=== PATIENT | female | born 1960 | race Caucasian/White ===

== ENCOUNTER 2016-08-16 23:43 | Emergency (ER) | payer OTHER ==
[~2016-08-16] VITALS: Ht 167.6 cm; Wt 52.9 kg
[~2016-08-16 23:43] MED LIST: AMIL5TAB15 PO; CHOL1CAP67 PO; COEN1CAP17 PO; DMD20 PO; EPLE25TA3 PO; FRS/40 PO; FURO40TA3 PO; LACT1CAP6 PO; MAGN1CAP2 PO; METO25TA3 PO; METO5TAB5 PO; MULTTAB58 PO; OMEG-7 PO; POTA20TA16 PO; WARF4TAB PO
[2016-08-16 23:48] VITALS: TEMP 37; Ht 167.6 cm; Wt 52.9 kg
--- NOTE | 2016-08-17 01:09 | EMERGENCY ROOM VISIT NOTE ---
History Report prepared by Roxane: Jose Rutledge Under the Supervision of: Dr. Hortensia Suero D.O. First contact with patient: 23:57 Chief Complaint: OTHER COMPLAINT Stated Complaint: BLOATED DUE TO HEART MEDS NOT BEING METABOLIZED History of Present Illness The patient is a 56 year old female who presents to the Emergency Room with complaints of a worsening bloated gut and bilateral lower extremity edema that began several days prior to arrival. The patient states that her symptoms are the result of a "leaky gut" which she has experienced intermittently for several years. The patient is followed closely at the [facility] since her open heart surgery in 2004. The patient had a mitral valve replacement and tricuspid annulus. She has a cardiac echo every 6 months, and is in constant atrial fibrillation. The patient spoke with the [facility] 5 days prior to this visit but was not able to make it to see them secondary to weather conditions. She is currently experiencing increased bowel movements. The patient has recently had her dosages of Torsemide and potassium increased due to her leaky gut. She is currently taking 40 mg of Torsemide twice per day and 30 meq of Potassium twice per day. The patient was very insulting while acquiring this HPI, she says that all of the doctors here at the hospital are incompetent. 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 A total of 10 systems reviewed and were otherwise negative. Past Medical & Surgical Medical Problems: (1) Pacemaker (2) Rheumatic heart disease Surgical Problems: (1) H/O tricuspid valve repair (2) Mitral valve replaced Family History Cancer Social History Smoking Status: Current Every Day Smoker Alcohol Use: none Marital Status: Housing Status: lives alone Occupation Status: employed Current/Historical Medications Scheduled Amiloride Hcl (Amiloride Hcl), 10 MG PO HOLD Amoxicillin & Pot Clavulanate (Amoxicillin/Clavulanate P), 1 TAB PO BID Cholecalciferol (Vitamin D-3), 1,000 UNITS PO DAILY Coenzyme Q10 (Ubidecarenone) (Co Q 10), 1 CAP PO BID Eplerenone (Eplerenone), 25 MG PO DAILY Eplerenone (Eplerenone), 25 MG PO DIRECTED Furosemide (Lasix), 80 MG PO QAM Furosemide (Lasix), 40 MG PO QPM Lactobacillus (Probiotic), 1 CAPSULE PO DAILY Magnesium Oxide (Mg Supplement (Magnesium), 400 MG PO DAILY Metoprolol Succ (Toprol Xl) (Toprol-Xl), 12.5 MG PO BID Multiple Vitamin (Multivitamin), 1 TABLET PO DAILY [place]-3 Fatty Acids-Cholecalci ([place] Essentials/Vitamin), 1 CAP PO DAILY Potassium Ext Rel (Klor-Con), 40 MEQ PO QAM Potassium Ext Rel (Klor-Con), 20 MEQ PO QPM Torsemide (Torsemide), 40 MG PO DAILY Warfarin Sodium (Coumadin), 4 MG PO DIRECTED Scheduled PRN Metolazone (Zaroxolyn), 5 MG PO DAILY PRN for EDEMA Allergies Coded Allergies: Adhesives (Verified Allergy, Mild, rash, 08/17/16) Codeine (Verified Allergy, Mild, ., 08/17/16) Lorazepam (Verified Allergy, Mild, ., 08/17/16) Corticosteroids (Verified Allergy, Unknown, HYPOTENSION, 08/17/16) Morphine (Verified Allergy, Unknown, mental status change, 08/17/16) NSAIDs (Verified Allergy, Unknown, HYPOTENSION, 08/17/16) Prednisone (Verified Adverse Reaction, Unknown, LOW BP D/T FLUID SHIFT, 08/17/16) Physical Exam Vital Signs Date Time Temp Pulse Resp B/P Pulse Ox O2 Delivery O2 Flow Rate FiO2 08/17/16 04:19 97 18 126/72 98 08/17/16 03:58 97 18 126/72 98 Room Air 08/17/16 01:55 104 18 113/79 94 Room Air 08/16/16 23:48 37.0 135 20 137/82 97 Room Air Physical Exam HEENT: Head - normocephalic and atraumatic Pupils are equal, round, and reactive to light. Extraocular eye muscles are intact, and sclera are anicteric. Nose - moist nasal mucosa without discharge. Mouth - moist buccal mucosa. Oropharynx is nonerythematous and there is no tonsillar exudate or edema noted. Neck: Supple; NO JVD, nuchal rigidity, cervical lymphadenopathy, or auscultated bruits. Heart: Irregularly irregular rate. There is a 2/6 systolic murmur, there is a click. There is a normal S1 and S2 with no gallops appreciated. Lungs: Clear to auscultation bilaterally with no wheezes, rales, or rhonchi. Abdomen: Soft, completely nontender, nondistended, with good bowel sounds. There are no palpable pulsatile masses or hepatosplenomegaly. There is no guarding, rigidity, or rebound noted. Extremities: There is evidence of peripheral vascular edema with 2+ edema. No evidence of cyanosis or clubbing. There are easily palpable peripheral pulses. Skin: warm and dry with good turgor and no rashes. Medical Decision & Procedures Laboratory Results 08/17/16 02:40 Test 08/17/16 00:21 08/17/16 02:40 Creatine Kinase MB Ratio (0-3.0) Prothrombin Time 22.8 SECONDS (9.0-12.0) Prothromb Time International Ratio 2.1 (0.9-1.1) Activated Partial Thromboplast Time 31.1 SECONDS (21.0-31.0) Partial Thromboplastin Ratio 1.2 Anion Gap 10.0 mmol/L (3-11) Est Creatinine Clear Calc Drug Dose 58.3 ml/min Estimated GFR () 82.3 Estimated GFR (Non- 71.0 BUN/Creatinine Ratio 21.4 (10-20) Calcium Level 9.2 mg/dl (8.5-10.1) Total Bilirubin 1.3 mg/dl (0.2-1) Aspartate Amino Transf (AST/SGOT) 51 U/L (15-37) Alanine Aminotransferase (ALT/SGPT) 41 U/L (12-78) Alkaline Phosphatase 182 U/L (45-117) Total Protein 7.9 gm/dl (6.4-8.2) Albumin 4.0 gm/dl (3.4-5.0) Globulin 3.9 gm/dl (2.5-4.0) Albumin/Globulin Ratio 1.0 (0.9-2) Laboratory results per my review. Medications Administered Medications (Trade) Dose Ordered Sig/Marie Route Start Time Stop Time Status Last Admin Dose Admin Furosemide (Lasix Inj) 80 mg STK-MED ONCE .ROUTE 08/17/16 03:45 08/17/16 03:47 DC 08/17/16 03:52 80 MG Procedure Medications Ordered: Furosemide ED Course 0042: This patient was evaluated and HPI was obtained by the Medical Student prior to my evaluation. 0051: Past medical records reviewed. The patient was evaluated in room B8. A complete history and physical exam was performed. 0055: The patient was very insulting during exam. She states that all of the doctors here are incompetent and do not provide suitable care. She refused IV initiation and Laboratory draw. She refuses any treatment until we speak with a fellow from the [facility]. We contacted the [facility] to speak with the cardiovascular follow. 0144: I spoke with the patient at this time. We are waiting for the on-call fellow at the [facility] to call back. 0224: I spoke with Dr. Pfeiffer, the on-call cardiovascular fellow at the [facility]. He feels it is unreasonable to give the patient any medications before checking a full metabolite panel. He reviewed her charts from the clinic and states that there was no documentation of any phone correspondence since her discharge in July, contrary to what the patient stated. Dr. Pfeiffer states that her medications as prescribed by them are 40 mg of Torsemide and 20 MEQ of Potassium once or twice daily. He recommends that we start an IV and give her a large dose of IV Lasix and have her call the [facility] tomorrow. 0345: Ordered Furosemide 80 mg IV. Medical Decision The patient is a 56 year old patient who presents to the emergency department with fluid overload. Differential diagnoses include; Laboratory results were reviewed and show; INR of 2.1, potassium of 3.5, BUN of 19, creatinine of 0.9, and glucose of 193. The patient has a long complicated history. She was just cared for at the [facility] in July. Upon discharge, her Zaroxolyn was stopped and she was to take Torosemide and potassium. The patient describes recent increase in her fluid overload with leg swelling. Initially, the patient requested that we give her an oral dose of Zaroxolyn, an oral dose of potassium, and an oral dose of turosemide. She then requested that we check her laboratory studies after that. After discussing the case with the fellow equipment clinic, we decided to draw a chemistry panel and treat the patient with IV Lasix. Eventually, the patient was satisfied with this plan. The fellow requested that she follow-up with them in the clinic by phone tomorrow. Consults Time Called: 014 Consulting Physician: Dr. Pfeiffer - On-call cardiovascular fellow at [facility] Returned Call: [phone] I discussed the case with Dr. Pfeiffer at this time, extensive conversation detailed in ED course. Impression Primary Impression: Fluid overload Scribe Attestation The scribe's documentation has been prepared under my direction and personally reviewed by me in its entirety. I confirm that the note above accurately reflects all work, treatment, procedures, and medical decision making performed by me. Departure Information Dispostion Home / Self-Care Referrals No Doctor, Assigned (PCP) Forms HOME CARE DOCUMENTATION FORM, IMPORTANT VISIT INFORMATION, WORK / SCHOOL INSTRUCTIONS Patient Instructions A Signature Page, My [facility] Additional Instructions Please follow up today with Cardiovascular fellow at [facility]. Increase your potassium dose to 40 meq twice a day for next 2 days
[2016-08-17] MEDS ORDERED: EPLE25TA3 PO (01:15)
[2016-08-17] MEDS ORDERED: AMOX1TAB42 PO (01:18)
[2016-08-17 03:06] LABS: INR 2.1 (0.9-1.1); PARTIAL THROMBOPLASTIN RATIO 1.2; PROTHROMBIN TIME (PATIENT) 22.8 SECONDS (9.0-12.0)
[2016-08-17 03:18] LABS: BUN/CREATININE RATIO 21.4 (10-20); CALCIUM 9.2 mg/dl (8.5-10.1); CREATININE 0.91 mg/dl (0.60-1.20); POTASSIUM 3.5 mmol/L (3.5-5.1)
[2016-08-17] MEDS ORDERED: FUROSEMIDE INJ 80 MG in SYRINGE 0 ML IV STA (03:33)
[2016-08-17] MEDS ORDERED: FUROSEMIDE 40 MG/4 ML VIAL ONE (03:45)
[2016-08-17 04:19] VITALS: BP 126/72; PULSE 97; O2SAT 98
== END 2016-08-17 04:20 | disposition home or self-care (01) ==
LOC: C.EDB 23:45
DX: E87.70 Fluid overload, unspecified (principal); I09.9 Rheumatic heart disease, unspecified; Z95.2 Presence of prosthetic heart valve; Z95.0 Presence of cardiac pacemaker; I48.91 Unspecified atrial fibrillation; F17.210 Nicotine dependence, cigarettes, uncomplicated; Z80.9 Family history of malignant neoplasm, unspecified; Z79.01 Long term (current) use of anticoagulants; Z79.899 Other long term (current) drug therapy

== ENCOUNTER → 2016-08-25 | Outpatient (CLI) | payer OTHER ==
[~2016-08-25] MED LIST changes: +AMOX1TAB42 PO
== END | disposition home or self-care (01) ==
LOC: C.LABPBG 13:13
PROVIDERS: ATTEND Internal Medicine Cardiovascular Disease
DX: Z09 Encounter for follow-up examination after completed treatment for conditions other than malignant neoplasm (principal); Z86.39 Personal history of other endocrine, nutritional and metabolic disease

== ENCOUNTER → 2016-08-28 | Outpatient (CLI) | payer OTHER ==
[2016-08-28 12:48] LABS: BLOOD UREA NITROGEN 24 mg/dl (7-18); BUN/CREATININE RATIO 28.6 (10-20); CALCIUM 10.5 mg/dl (8.5-10.1); CARBON DIOXIDE 31 mmol/L (21-32); CHLORIDE 91 mmol/L (98-107); CREATININE 0.84 mg/dl (0.60-1.20); GLUCOSE 177 mg/dl (70-99); POTASSIUM 3.1 mmol/L (3.5-5.1); SODIUM 132 mmol/L (136-145)
== END | disposition home or self-care (01) ==
LOC: C.LABPBG 09:57
PROVIDERS: ATTEND Internal Medicine Cardiovascular Disease
DX: Z95.2 Presence of prosthetic heart valve (principal); I48.0 Paroxysmal atrial fibrillation; I50.32 Chronic diastolic (congestive) heart failure

== ENCOUNTER → 2016-09-01 | Outpatient (CLI) | payer OTHER | END | disposition home or self-care (01) | LOC: C.LABPBG 09:33 | PROVIDERS: ATTEND Family Medicine | DX: E55.9 Vitamin D deficiency, unspecified (principal); R19.7 Diarrhea, unspecified; K86.89 Other specified diseases of pancreas; R05 Cough ==

== ENCOUNTER 2016-09-17 21:28 | Emergency (ER) | payer OTHER ==
[~2016-09-17] VITALS: Ht 167.6 cm; Wt 72.2 kg
[2016-09-17 21:30] VITALS: BP 139/84; PULSE 109; TEMP 36.5; O2SAT 98; Ht 167.6 cm; Wt 72.2 kg
--- NOTE | 2016-09-17 22:04 | EMERGENCY ROOM VISIT NOTE ---
History First contact with patient: 21:40 Chief Complaint: DEHYDRATION Stated Complaint: DEHYDRATION History of Present Illness The patient is a 56 year old female who presents to the Emergency Room with complaints of possible dehydration versus fluid overload. Much of the history is limited as the patient is talking on the telephone to "her doctor", and would not get off the phone to have a full conversation with me. Review of Systems Unable to perform Past Medical/Surgical History Medical Problems: (1) Pacemaker (2) Rheumatic heart disease Surgical Problems: (1) H/O tricuspid valve repair (2) Mitral valve replaced Family History Cancer Social History Smoking Status: Never Smoker Alcohol Use: none Marital Status: Housing Status: lives alone Occupation Status: employed Current/Historical Medications Scheduled Amiloride Hcl (Amiloride Hcl), 10 MG PO HOLD Amoxicillin & Pot Clavulanate (Amoxicillin/Clavulanate P), 1 TAB PO BID Cholecalciferol (Vitamin D-3), 1,000 UNITS PO DAILY Coenzyme Q10 (Ubidecarenone) (Co Q 10), 1 CAP PO BID Eplerenone (Eplerenone), 25 MG PO DAILY Eplerenone (Eplerenone), 25 MG PO DIRECTED Furosemide (Lasix), 80 MG PO QAM Furosemide (Lasix), 40 MG PO QPM Lactobacillus (Probiotic), 1 CAPSULE PO DAILY Magnesium Oxide (Mg Supplement (Magnesium), 400 MG PO DAILY Metoprolol Succ (Toprol Xl) (Toprol-Xl), 12.5 MG PO BID Multiple Vitamin (Multivitamin), 1 TABLET PO DAILY [place]-3 Fatty Acids-Cholecalci ([place] Essentials/Vitamin), 1 CAP PO DAILY Potassium Ext Rel (Klor-Con), 40 MEQ PO QAM Potassium Ext Rel (Klor-Con), 20 MEQ PO QPM Torsemide (Torsemide), 40 MG PO DAILY Warfarin Sodium (Coumadin), 4 MG PO DIRECTED Scheduled PRN Metolazone (Zaroxolyn), 5 MG PO DAILY PRN for EDEMA Allergies Coded Allergies: Adhesives (Verified Allergy, Mild, rash, 09/17/16) Codeine (Verified Allergy, Mild, ., 09/17/16) Lorazepam (Verified Allergy, Mild, ., 09/17/16) Corticosteroids (Verified Allergy, Unknown, HYPOTENSION, 09/17/16) Morphine (Verified Allergy, Unknown, mental status change, 09/17/16) NSAIDs (Verified Allergy, Unknown, HYPOTENSION, 09/17/16) Prednisone (Verified Adverse Reaction, Unknown, LOW BP D/T FLUID SHIFT, 09/17/16) Physical Exam Vital Signs Date Time Temp Pulse Resp B/P Pulse Ox O2 Delivery O2 Flow Rate FiO2 09/17/16 21:30 36.5 109 20 139/84 98 Room Air Physical Exam VITALS: Vitals are noted on the nurse's note and reviewed by myself. Vital signs stable. GENERAL: Well-developed, well-nourished, white female, who is pacing in the room and speaking on the telephone. Medical Decision & Procedures ED Course Physical exam and history were performed. Nursing notes and EMR were reviewed. Patient appears to have vague complaints of dehydration versus fluid overload to the triage nurse. Based on the EMR she has been seen at the [facility] for a cardiac history. The best history unable to obtain as from the charge nurse, and evidently the patient took potassium tablets today to improve hypokalemia. The EMR shows that she has a history of hypokalemia. Upon my arrival to the patient's room, the patient was talking on her cell phone. She had refused changing into her gown, and was reportedly belligerent to nursing. She indicated that she was speaking to "her doctor", but did not make an attempt to complete the call. I sat in the room while the patient was on the phone for nearly 5 minutes. The patient actually left the emergency department room to continue her conversation in an area that I was not able to hear it. This left me alone in her room, without her, and without further evaluation being performed. As the patient had left the room to continue her conversation on the telephone, I also left the room. I asked nursing to inform me when the patient was ready for further evaluation. After several minutes I was informed by nursing the patient had left AMA. This was reported to the charge nurse. Evidently the patient made comments about this location not being "patient centered" on her way out of the department. I am unsure what she is referring to as I was present within 9 minutes (door to provider) of her arrival to the emergency department. I waited in her room while she continued conversation on the telephone, and she eloped without further evaluation. The chart was completed utilizing [employer] Speech Voice Recognition Software. Grammatical errors, random word insertions, pronoun errors, and incomplete sentences are an occasional consequence of this system due to software limitations, ambient noise, and hardware issues. Any formal questions or concerns about the content, text, or information contained within the body of this dictation should be directly addressed to the provider for clarification. . Medical Decision No differential considered as the patient left AMA. Impression Primary Impression: Left against medical advice Departure Information Dispostion Against Medical Advice Forms HOME CARE DOCUMENTATION FORM, IMPORTANT VISIT INFORMATION Patient Instructions [facility]
== END 2016-09-17 21:55 | disposition left against medical advice (07) ==
LOC: C.EDB 21:29 → C.EDA 21:55
DX: E86.0 Dehydration (principal); Z95.2 Presence of prosthetic heart valve; Z95.0 Presence of cardiac pacemaker; I09.9 Rheumatic heart disease, unspecified; Z79.01 Long term (current) use of anticoagulants; Z79.899 Other long term (current) drug therapy

== ENCOUNTER → 2016-10-08 | Outpatient (CLI) | payer OTHER | END | disposition home or self-care (01) | LOC: C.LABPBG 11:29 | PROVIDERS: ATTEND Nurse Practitioner Family | DX: Z00.00 Encounter for general adult medical examination without abnormal findings (principal) ==

== ENCOUNTER → 2016-10-27 | Outpatient (CLI) | payer OTHER ==
[2016-10-27 17:37] LABS: HEMATOCRIT 32.9 % (37-47); MEAN CELL VOLUME 101.9 fL (80-100); MEAN CORPUSCULAR HEMOGLOBIN 33.4 pg (25-34); MEAN CORPUSCULAR HGB CONC 32.8 g/dl (32-36); MEAN PLATELET VOLUME 9.9 fL (7.4-10.4); PLATELET COUNT 256 K/uL (130-400); RED BLOOD COUNT 3.23 M/uL (4.2-5.4); WHITE BLOOD COUNT 9.06 K/uL (4.8-10.8)
== END | disposition home or self-care (01) ==
LOC: C.LABPBG 15:31
PROVIDERS: ATTEND Family Medicine
DX: J15.9 Unspecified bacterial pneumonia (principal); I48.0 Paroxysmal atrial fibrillation; I50.32 Chronic diastolic (congestive) heart failure; Z95.2 Presence of prosthetic heart valve; Z79.01 Long term (current) use of anticoagulants; Z51.81 Encounter for therapeutic drug level monitoring

== ENCOUNTER → 2016-10-30 | Outpatient (CLI) | payer OTHER ==
[2016-10-30 13:08] LABS: THYROID STIMULATING HORMONE 2.54 uIu/ml (0.300-4.500)
[2016-10-30 13:36] LABS: ESTIMATED AVERAGE GLUCOSE 151 mg/dl; HA1C FLAG Normal (Normal)
--- NOTE | 2016-11-04 10:44 | CODING QUERY MEDICAL NECESSITY ---
SUPPORTING DIAGNOSIS NEEDED A supporting diagnosis is required for the test/procedure performed on this patient in order for us to be reimbursed by the patient's insurance. Please provide a supporting diagnosis for the following test/procedure listed below next to the test name along with your signature. *If there is no additional diagnosis for this patient that would support the following test/procedure please document that below next to the test/procedure. Test(s)/Procedure(s) that require a supporting diagnosis: DOS 10/30 * Hba1c DIAGNOSIS: Provider Signature: Date: Thank you Leyla Mcghee Health Information Management Once completed, please kindly fax back to [phone] For questions please call [phone]
== END | disposition home or self-care (01) ==
LOC: C.LABPBG 10:45
PROVIDERS: ATTEND Family Medicine
DX: R53.83 Other fatigue (principal); E74.39 Other disorders of intestinal carbohydrate absorption

== ENCOUNTER → 2016-11-19 | Outpatient (CLI) | payer OTHER | END | disposition home or self-care (01) | LOC: C.LABPBG 13:13 | PROVIDERS: ATTEND Internal Medicine Cardiovascular Disease | DX: I48.2 Chronic atrial fibrillation (principal); I50.9 Heart failure, unspecified; I07.0 Rheumatic tricuspid stenosis; Z95.2 Presence of prosthetic heart valve; Z98.890 Other specified postprocedural states ==

== ENCOUNTER → 2016-12-07 | Outpatient (CLI) | payer OTHER ==
[2016-12-07 18:00] LABS: CALCIUM 9.7 mg/dl (8.5-10.1)
== END | disposition home or self-care (01) ==
LOC: C.LABPBG 14:23
PROVIDERS: ATTEND Family Medicine
DX: E83.52 Hypercalcemia (principal); I86.8 Varicose veins of other specified sites; K90.9 Intestinal malabsorption, unspecified; L29.9 Pruritus, unspecified; E87.6 Hypokalemia

== ENCOUNTER → 2016-12-14 | Outpatient (CLI) | payer OTHER ==
[2016-12-15 10:39] LABS: FREE KAPPA 33.2 MG/L (3.3-19.4); FREE KAPPA/LAMBDA RATIO 0.6 (0.26-1.65); FREE LAMBDA 55.3 MG/L (5.7-26.3)
[2016-12-15 15:14] LABS: ALBUMIN 4.6 G/DL (3.8-4.8); GAMMA GLOBULIN 1.4 G/DL (0.8-1.7); TOTAL PROTEIN 8.1 G/DL (6.2-8.3)
== END | disposition home or self-care (01) ==
LOC: C.LABPBG 09:19
PROVIDERS: ATTEND Family Medicine
DX: R77.1 Abnormality of globulin (principal)

== ENCOUNTER → 2017-02-03 | Outpatient (CLI) | payer OTHER ==
[2017-02-03 13:33] LABS: ALT/SGPT 27 U/L (12-78); BLOOD UREA NITROGEN 16 mg/dl (7-18); BUN/CREATININE RATIO 17.1 (10-20); CALCIUM 10.7 mg/dl (8.5-10.1); CARBON DIOXIDE 25 mmol/L (21-32); CHLORIDE 98 mmol/L (98-107); CREATININE 0.95 mg/dl (0.60-1.20); GLUCOSE 142 mg/dl (70-99); POTASSIUM 4.5 mmol/L (3.5-5.1); SODIUM 133 mmol/L (136-145)
[2017-02-03 13:40] LABS: ALKALINE PHOSPHATASE 214 U/L (45-117); AST/SGOT 40 U/L (15-37)
== END | disposition home or self-care (01) ==
LOC: C.LABPBG 10:15
PROVIDERS: ATTEND Family Medicine
DX: R94.5 Abnormal results of liver function studies (principal)

== ENCOUNTER → 2017-02-12 | Outpatient (CLI) | payer OTHER ==
[2017-02-12 16:52] LABS: BASO % 0.8 %; BASO ABS # 0.06 K/uL (0-0.2); COMPLETE YES; EOS % 2.1 %; HEMATOCRIT 36.4 % (37-47); IG% 0.4 %; LYMPH % 10.5 %; MEAN CELL VOLUME 100.8 fL (80-100); MEAN CORPUSCULAR HEMOGLOBIN 33.5 pg (25-34); MEAN CORPUSCULAR HGB CONC 33.2 g/dl (32-36); MEAN PLATELET VOLUME 10.3 fL (7.4-10.4); NEUT % 76.2 %; PLATELET COUNT 195 K/uL (130-400); RED BLOOD COUNT 3.61 M/uL (4.2-5.4); WHITE BLOOD COUNT 7.62 K/uL (4.8-10.8)
[2017-02-12 17:25] LABS: TOTAL IRON BINDING CAPACITY 457 mcg/dl (250-450)
== END | disposition home or self-care (01) ==
LOC: C.LABPBG 11:20
PROVIDERS: ATTEND Nurse Practitioner Family
DX: I50.9 Heart failure, unspecified (principal); I48.2 Chronic atrial fibrillation; L02.32 Furuncle of buttock; J32.9 Chronic sinusitis, unspecified; I07.0 Rheumatic tricuspid stenosis; K90.89 Other intestinal malabsorption; Z95.2 Presence of prosthetic heart valve; R53.83 Other fatigue; E87.6 Hypokalemia; R77.1 Abnormality of globulin; R76.8 Other specified abnormal immunological findings in serum; R74.8 Abnormal levels of other serum enzymes

== ENCOUNTER → 2017-03-22 | Outpatient (CLI) | payer OTHER ==
--- NOTE | 2017-03-22 11:02 | DIAGNOSTIC IMAGING REPORT ---
ABDOMEN LIMITED (US) HISTORY: Abnormal lab values ABNORMAL LEVELS, RAISED ALKALINE PHOSPHATASE. COMPARISON: None. FINDINGS: Pancreas: The pancreas demonstrates a normal echotexture. Liver: Mild fatty infiltration Gallbladder: Several small gallstones. CBD: 3 mm Right kidney: Maximum dimension 11.2 cm. No evidence for hydronephrosis. IMPRESSION: 1. Small gallstones 2. Normal caliber bile ducts. 3. Fatty infiltration of liver. The above report was generated using voice recognition software. It may contain grammatical, syntax or spelling errors. Electronically signed by: Michael Kennedy M.D. 03/22/2017 11:00 AM Dictated Date/Time: 03/22/2017 10:59 AM
== END | disposition home or self-care (01) ==
LOC: C.ULTRBC 10:34
PROVIDERS: ATTEND Internal Medicine Gastroenterology
DX: R74.8 Abnormal levels of other serum enzymes (principal); K76.0 Fatty (change of) liver, not elsewhere classified

== ENCOUNTER 2017-08-28 17:51 | Emergency (ER) | payer OTHER ==
[~2017-08-28] VITALS: Ht 172.7 cm; Wt 68.9 kg
[2017-08-28 18:08] VITALS: BP 128/86; PULSE 104; TEMP 36.8; O2SAT 96; Ht 172.7 cm; Wt 68.9 kg
[2017-08-28] MEDS ORDERED: OXYMETAZOLINE HCL 0.05% NA SPR 15 ML BTL STA (18:21)
[2017-08-28] MEDS ORDERED: TPRSR/50 PO (19:11)
[2017-08-28] MEDS ORDERED: POTA1CAP2 PO (19:11)
[2017-08-28] MEDS ORDERED: TORS100T13 PO (19:11)
--- NOTE | 2017-08-28 19:11 | EMERGENCY ROOM VISIT NOTE ---
History First contact with patient: 18:12 Chief Complaint: NOSE BLEED (MINOR) Stated Complaint: PERSISTANT,FREQUENT BLOODY NOSE, WARFARIN History of Present Illness The patient is a 57 year old female who presents to the Emergency Room via private vehicle with complaints of "persistent, frequent bloody nose, warfarin" . The patient states that she is currently on Coumadin for mechanical heart valve. She states that today around 3 PM she developed a sudden onset of a nosebleed from the right naris. She notes that she receives nosebleeds each ear during the winter months. She follows with ENT. She had to have cautery performed last year. Today the bleeding persisted therefore prompting her visit to an urgent care center here for cauterization. Upon her entrance into the emergency department there is no bleeding. She notes her last INR was 3.3, and she skipped a dose because of this. Review of Systems A complete 6-point Review of Systems was discussed with the patient, with pertinent positives and negatives listed in the History of Present Illness. All remaining Review of Systems questions can be considered negative unless otherwise specified. Past Medical/Surgical History Medical Problems: (1) Pacemaker (2) Rheumatic heart disease Surgical Problems: (1) H/O tricuspid valve repair (2) Mitral valve replaced Family History Cancer Social History Smoking Status: Current Every Day Smoker Alcohol Use: none Marital Status: Housing Status: lives alone Occupation Status: employed Current/Historical Medications Scheduled Coenzyme Q10 (Ubidecarenone) (Co Q 10), 1 CAP PO BID Lactobacillus (Probiotic), 1 CAPSULE PO DAILY Metoprolol Succinate (Metoprolol Succinate ER), 50 MG PO DAILY Multiple Vitamin (Multivitamin), 1 TABLET PO DAILY Pioglitazone Hcl (Pioglitazone Hcl), 15 MG PO DAILY Potassium Chloride (Potassium Chloride Er), 10 MEQ PO 8XDAY Torsemide (Demadex), 100 MG PO DAILY Warfarin Sodium (Coumadin), 4 MG PO DIRECTED Physical Exam Vital Signs Date Time Temp Pulse Resp B/P (MAP) Pulse Ox O2 Delivery O2 Flow Rate FiO2 08/28/17 18:08 36.8 104 20 128/86 96 Room Air Physical Exam VITAL SIGNS - Vital signs and nursing notes were reviewed. Stable. GENERAL -57-year-old female appearing her stated age who is in no acute distress. Communicates well with provider and answers questions appropriately. SKIN - Without rashes. No petechial rashes. HEAD - NC/AT. EYES - PERRL with EOMI bilaterally. Sclera anicteric. No hyphema. EARS - No deformities of external structures noted on gross examination bilaterally. No pain elicited with palpation of the tragus bilaterally. External auditory canals without discharge or otorrhea. Tympanic membranes pearly lucio without retraction or bulging. No fluid or purulent material visualized behind the TM. Handle of malleus, umbo, cone of light, pars tensa/ flaccid all easily visualized. No hemotympanum. NOSE - Midline and without cyanosis. No epistaxis or purulent drainage noted. There is dry blood in the naris and posterior pharynx. MOUTH/OROPHARYNX - Without perioral cyanosis. Medical Decision & Procedures Laboratory Results Test 08/28/17 18:45 Bedside Prothrombin Time INR 2.2 (0.9-1.1) Medications Administered Medications (Trade) Dose Ordered Sig/Marie Route Start Time Stop Time Status Last Admin Dose Admin Oxymetazoline HCl (Afrin 0.05% Nasal [place]) 1 sprays NOW STAT NA 08/28/17 18:21 08/28/17 18:22 DC 08/28/17 18:21 1 SPRAYS Medical Decision Patient was seen and evaluated as above. She presents to us today with subjective reports of nosebleeding. There is no bleeding upon her entrance here in the emergency department. She is well on exam. She is hemodynamically stable. She is not dizzy. INR was checked here and was found to be 2.2. This is appropriate. She was given Afrin spray. She was given a nose clamp. She was offered cautery here but I cautioned her that without knowing the offending vessel it is very difficult to do so. She agreed that she would use the Afrin at home if the bleeding would began and is to return if she cannot get the bleeding to stop. She is also to follow with ENT. She was educated upon conservative management. Medication list reviewed. Blood pressure today was found to be slightly elevated. I believe this is secondary to situation. She was educated upon management, educated upon worrisome symptoms in which to return, had questions answered prior to discharge, and was discharged home in good condition. In evaluation and treatment of this patient the following differential diagnoses were entertained: Epistaxis, anterior, posterior, trauma, among others. Impression Primary Impression: Epistaxis Departure Information Dispostion Home / Self-Care Condition GOOD Referrals Kassidy Robertson (PCP) Manny Sanchez MD Patient Instructions [facility] Additional Instructions You have been treated in the Emergency Department today for your Nose Bleed ( Epistaxis). Do NOT blow your nose for the next few days. This can result in recurrence of your nosebleed. You should consider using a humidifier to help moisten the air and decrease instances of nosebleeds. Afrin if you experience a nosebleed, but only if it bleeds. Other regular mists should be saline. You can use [id number] saline nasal sprays to help moisten the nasal mucosa and decrease instances of nosebleeds. As with any trip to the Emergency Department, you should follow-up with your Primary Care Provider from today's visit.. ENT follow up as we discussed Return to the emergency department if your symptoms persist despite treatment plan outlined above or if the following symptoms occur: uncontrollable nosebleed , dizziness, lightheadedness, pre-syncope, or re-bleed.
[2017-08-28] MEDS ORDERED: PIOG1TAB25 PO (19:12)
== END 2017-08-28 19:14 | disposition home or self-care (01) ==
LOC: C.EDB 17:53 → C.EDD 19:14
DX: R04.0 Epistaxis (principal); Z79.01 Long term (current) use of anticoagulants; Z95.2 Presence of prosthetic heart valve; F17.210 Nicotine dependence, cigarettes, uncomplicated; Z79.899 Other long term (current) drug therapy

== ENCOUNTER 2019-05-07 13:30 | Inpatient (IN) ==
[2019-05-07] MEDS ORDERED: ONDANSETRON INJ 2 MG/ML 2 ML VIAL IV STA (14:04)
[2019-05-07] MEDS ORDERED: SODIUM CHLORIDE 0.9% 1000ML 2,000 ML IV ONE ×2 (14:04→16:05)
[2019-05-07] MEDS ORDERED: ACETAMINOPHEN 500 MG TAB PO STA (14:05)
[2019-05-07 14:24] LABS: Basophils # (auto) 0.03 K/uL (0-0.2); Basophils % (auto) 0.6 %; Hematocrit (blood only) 29.8 % (37-47); Hemoglobin 9.7 g/dL (12.0-16.0); Immature Granulocytes # (auto) 0.01 K/uL (0.00-0.02); Immature Granulocytes % (auto) 0.2 %; Lymphocytes # (auto) 0.52 K/uL (1.2-3.4); Mean Corpuscular Hemoglobin 31.8 pg (25-34); Mean Corpuscular Hgb Conc 32.6 g/dL (32-36); Mean Corpuscular Volume 97.7 fL (80-100); Mean Platelet Volume 9.3 fL (7.4-10.4); Monocytes # (auto) 0.37 K/uL (0.11-0.59); Monocytes % (auto) 7.8 %; Neutrophils % (auto) 80.4 %; Platelet Count 217 K/uL (130-400); RDW Coefficient of Variation 14.8 % (11.5-14.5); RDW Standard Deviation 53.1 fL (36.4-46.3); Red Blood Count 3.05 M/uL (4.2-5.4); White Blood Count 4.73 K/uL (4.8-10.8)
[2019-05-07 14:41] LABS: Albumin Level 4.2 gm/dl (3.4-5.0); Calcium 8.9 mg/dl (8.5-10.1); Creatinine Clr Calc Pharmacy 40.9 ml/min; Est GFR (African American) 43.4; Est GFR (Non-African American) 37.4; Potassium 2.6 mmol/L (3.5-5.1)
[2019-05-07 14:44] LABS: Bilirubin,Total 1.1 mg/dl (0.2-1); Globulin 4.1 gm/dl (2.5-4.0); Total Protein 8.3 gm/dl (6.4-8.2)
[2019-05-07] MEDS ORDERED: MAGNESIUM SULFATE / D5W 1 GM/100 ML BAG IV ONE (15:20)
--- NOTE | 2019-05-07 15:53 | Ultrasound Report ---
ULTRASOUND RIGHT UPPER QUADRANT ABDOMEN CLINICAL HISTORY: Nausea and vomiting. COMPARISON STUDY: Abdominal CT dated 10/03/2018. TECHNIQUE: Real-time, grayscale, and color flow sonography of the right upper quadrant of the abdomen was performed. Images are reviewed in the transverse and longitudinal planes. FINDINGS: Liver: The liver is normal in size and heterogeneous in echotexture. There is no intrahepatic biliary ductal dilatation. The main portal vein is patent. Gallbladder: There are shadowing calcified gallstones which measure up to 1 cm. The gallbladder wall is top normal in thickness measuring up to 3 mm. No pericholecystic fluid is identified. A sonographi c Castrejon's sign is reportedly absent. The common bile duct measures up to 0.5 cm in diameter. Pancreas: Visualized portions of the pancreatic head and body are normal in appearance. The splenic v ein is patent. Right kidney: Survey images of the right kidney demonstrate normal size and echotexture. There is no hydronephrosis. Ascites: None. IMPRESSION: 1. Cholelithiasis without sonographic evidence of acute cholecystitis. If there is strong clinical co ncern for acute cholecystitis a hepatobiliary scan could be considered. 2. There is no intra or extrahepatic biliary ductal dilatation. 3. Heterogeneous hepatic echotexture. Electronically signed by: Felice Galarza M.D. 05/07/2019 3:52 PM
[2019-05-07] MEDS ORDERED: POTASSIUM CHLORIDE PWD 20 MEQ PACK PO STA (16:01)
[2019-05-07] MEDS: POTASSIUM CHLORIDE / WTR 10 MEQ/100 ML PLCT IV SCH ×2 (16:03→22:36)
[2019-05-07] MEDS ORDERED: PIPERACILL/TAZOBAC CONSULT ACTIVE PRN ×2 (16:05→20:10)
[2019-05-07] MEDS ORDERED: PIPERACILLIN/TAZOBACTAM 4.5 GM/120 ML BAG IV ONE (16:05)
[2019-05-07 16:13] LABS: Appearance Urine Clear (Clear); Bilirubin Urine Negative (Negative); Blood Urine Trace (Negative); Color Urine Yellow; Glucose Urine UA 2+ (Negative); Ketones Urine Negative (Negative); Leukocyte Esterase Urine Negative (Negative); Nitrite Urine Negative (Negative); Protein Urine Trace (Negative); Specific Gravity Urine 1.014 (1.000-1.030); Urobilinogen Urine Negative (Negative)
[2019-05-07] MEDS ORDERED: IOVERSOL 100ml IV PRN (16:42)
[2019-05-07 16:48] LABS: Epithelial Cell Urine Auto >30 /lpf (0-5)
[2019-05-07 16:50] LABS: Bacteria Urine Automated 1+ (Negative)
--- NOTE | 2019-05-07 17:27 | CT Scan Report ---
CT SCAN OF THE ABDOMEN AND PELVIS WITH IV CONTRAST CLINICAL HISTORY: Nausea and vomiting. Hypotension. COMPARISON STUDY: Abdominal CT dated 10/03/2018. TECHNIQUE: Following the IV administration of 94 cc of Optiray 320, CT scan of the abdomen and pelvi s is performed from the lung bases to the proximal femora. Images are reviewed in the axial, sagittal , and coronal planes. IV contrast was administered without complication. A dose lowering technique wa s utilized adhering to the principles of ALARA. CT DOSE: 376.10 mGy.cm FINDINGS: Lung bases: The patient is status post midline sternotomy. Pacemaker leads are noted. The heart is ma rkedly enlarged and without pericardial effusion. The coronary arteries are densely calcified. There is a trace right pleural effusion and bibasilar atelectasis. Bilateral breast implants are partially imaged. There is a tiny hiatal hernia. Liver: The contrast-enhanced liver is cirrhotic in morphology and heterogeneous in attenuation. There is enlargement of the left lobe and caudate and nodularity of the surface contour. There is no intra hepatic biliary ductal dilatation. The hepatic veins and portal veins are patent. Gallbladder: Calcified gallstones are noted. The gallbladder wall is thickened and hyperemic. There i s pericholecystic inflammation and trace fluid. The appearance is consistent with acute cholecystitis . Spleen: Normal in size and attenuation. Pancreas: Unremarkable. Adrenal glands: The adrenal glands appear hyperemic. Kidneys: The contrast enhanced kidneys are normal in size and without hydronephrosis. The kidneys enh ance symmetrically. Abdominal vasculature: The abdominal aorta is normal in course and caliber. Bowel: There is mild colonic diverticulosis without CT evidence of acute diverticulitis. Moderate col onic fecal retention is observed. There is no bowel obstruction. The appendix is nonvisualized. Peritoneum: There is trace perihepatic fluid as well as trace free fluid in the pelvis. No intraperit romero free air is identified. There is a large fat-containing umbilical hernia. There is a large fat- containing ventral hernia in the upper abdomen seen on image #85. Lymphadenopathy: None. Pelvic viscera: The bladder, uterus, and adnexa are normal as imaged. Skeletal structures: The skeletal structures are osteopenic. No lytic or blastic lesions are seen. IMPRESSION: 1. Cholelithiasis with findings of acute cholecystitis. Surgical consultation is advised. 2. The liver is cirrhotic in morphology and heterogeneous in attenuation. 3. There is trace abdominopelvic ascites. 4. Marked cardiomegaly and trace right pleural effusion. 5. The adrenal glands appear hyperemic. This is nonspecific and can be seen in the setting of hypoten chantelle/shock. 6. Additional findings as above. Electronically signed by: Felice Galarza M.D. 05/07/2019 5:25 PM
[2019-05-07 18:09] LABS: INR 2.3 (0.9-1.1); Prothrombin Time 21.8 Seconds (9.0-12.0)
--- NOTE | 2019-05-07 18:14 | History & Physical Report ---
Date of Service May 07, 2019 Assessment & Plan (1) Acute cholecystitis: It appears the patient has acute cholecystitis. Symptoms, abnormal LFTs, and imaging support this diagnosis. Surprisingly she has had little to no abdominal pain in the last few days. Plan - I spoke with general surgery who will consult in am. Repeat LFTs in am. Gentle IV fluids in light of cardiac history. Zosyn IV. NPO. Pain meds, if necessary. Will need cardiology to weigh-in on pre-op cardiac optimization. Formal cardiology consult placed. I did discuss her care with Dr Glass by phone. Consider formal anesthesia consultation. Had echo in 09/2018 - defer on repeat for now. Hold warfarin; place on heparin drip. (2) Sepsis: 2nd to acute cholecystitis. Follow blood cultures. Broad-spectrum IV antibiotics. Gentle fluids overnight; supportive care. (3) H/O mitral valve replacement: Initial MVR in 1985 with re-do in [address]. [address] Tavo's valve (by her report); however cardiology report lists [employer] mechanical MVR. Either way she takes coumadin and INR goal is 2.5 to 3.5. Last echo in 09/2018 showed good MVR function and normal hemodynamics. Holding coumadin. Start heparin drip per protocol. (4) Hypokalemia: Severe. Likely combination of high-dose diuretics and poor oral intake. Given 40meq of KCL in ER. I will give another 40meq KCL at time of admission, and then repeat 4-6 hours later after that another 20meq. Add KCL to IV fluids. Repeat bmp am. Mag level noted to be normal. (5) History of permanent cardiac pacemaker placement: Implanted 2018 09 to complete heart block. (6) Atrial fibrillation: Chronic/permanent. Had ablation procedure early . On chronic coumadin. (7) Acute kidney injury: likely 2nd to dehydration & sepsis. gentle hydration & supportive care. repeat BMP am. baseline Cr 1 to 1.1. (8) DM w/o complication type II: Hold metformin. Hold jardiance. Check BSGs ac/hs (or q6h while NPO). Novolog sliding scale for now. Check a1c while here. (9) Cervical lymphadenopathy: she has numerous palpable cervical lymph nodes on physical exam. there was also a palpable node in the right supraclavicular area. she has had fatigue for about 1 month in the absence of sweats, chronic fevers or weight loss. [id number] this is concerning. check a monospot. I spoke with Dr Joseph - he recommends a CT soft tissues of neck and CT chest w/ contrast. Check LDH. When cholecystectomy is performed perhaps an excisional lymph node biopsy can occur. Will formally consult Dr Joseph's team on Wednesday. Can likely obtain CTs on Wednesday. (10) Leukopenia: concerning, especially in light of cervical lymphadenopathy. see above. (11) Anemia: Earlier in 2018 her H/H were normal. See above in cervical lymphadenopathy. Repeat CBC am. (12) Chronic cor pulmonale: as per echo dated 09/2018. gentle IV fluids in face of her right-sided CHF. formal consult with Dr Glass requested. no evidence of decompensation today. (13) Erythrocyte casts present in urine: RBC casts are noted on microscopy today. She has trace blood and trace protein along with elevated Cr of 1.5. Hydrate and repeat BMP am. If elevated creatinine persists, and if RBC casts persist on urine micro, consider formal nephrology consultation to r/o GN. (14) H/O tricuspid valve repair: x 2. now with severe tricuspid stenosis by echo (09/2018). (15) DVT prophylaxis: Patient will be on heparin infusion. Care d/w Dr Glass and Dr Arana. total time 75 minutes History of Present Illness Chief Complaint: nausea Primary Care Provider: MAURO Gonzales 59yo female with history of rheumatic heart disease s/p mitral valve replacement x 2 (initially White-Carlton valve in the 1980s; then re-do with St Tavo's valve in 2004), pacemaker (implanted at [facility] 09/2018), T2DM, chronic coumadin use, and right-sided congestive heart failure who presents with nausea beginning earlier this month. The nausea then continued to persist over the last few weeks. She has had lack of appetite. Denies abdominal pain episodes. Had emesis about 1 week ago but otherwise no emesis. No diarrhea. of this week she stopped eating due to the above symptoms. On Wednesday she saw her PCP and she was told that perhaps her symptoms were from a viral gastroenteritis. Wednesday evening she began to have subjective fevers and chills. On Saturday she slept most of the day and had severe fatigue. This am she felt very weak, had no appetite, fevers/chills persisted, etc and thus she came to the ER for evaluation. Denies night-sweats. Denies weight loss. She has just been "exhausted." Her last echo was in 09/2018 and EF was 55% based on her recollection. Coumadin schedule - 6mg M/W/F, 4mg all other days. Allergies Allergy/AdvReac Type Severity Reaction Status Date / Time adhesive Allergy Mild rash Verified 05/07/19 14:26 codeine Allergy Mild . Verified 05/07/19 14:26 lorazepam Allergy Mild . Verified 05/07/19 14:26 Corticosteroids Allergy Unknown HYPOTENSION Verified 05/07/19 14:26 (Glucocorticoids) morphine Allergy Unknown mental Verified 05/07/19 14:26 status change NSAIDS (Non-Steroidal Allergy Unknown HYPOTENSION Verified 05/07/19 14:26 Anti-Inflamma azithromycin Allergy Unknown Unverified 05/07/19 14:26 [From Zithromax Z-Anton] zolpidem [From Ambien] Allergy Unknown Unverified 05/07/19 14:26 prednisone AdvReac Unknown LOW BP D/T Verified 05/07/19 14:26 FLUID SHIFT Anti-Depressents Allergy Unknown Uncoded 05/07/19 14:26 Home Medications Home Medications Medication Instructions Recorded Confirmed Type empagliflozin [Jardiance] 10 mg PO QAM 05/07/19 05/07/19 History metformin 500 mg PO UNKNOWN 05/07/19 05/07/19 History potassium chloride 60 meq PO BID 05/07/19 05/07/19 History torsemide 150 mg PO DAILY 05/07/19 05/07/19 History warfarin 4 mg PO DIRECTED 05/07/19 05/07/19 History warfarin 6 mg PO DIRECTED 05/07/19 05/07/19 History Past Med/Surg History Family History Mother , 60s Gastric cancer Father , age 65 Lung cancer Social History Preferred Language: Austrian Communication Ability: Effective Telephone Advice Nurse Required: No Beliefs That Will Affect Care: None marital status: Single marital status details: 1 son Current Living Situation: Alone Current Living Situation Comment: lives in [place] current occupational status: employed 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 Other Information That Helps Us Care for You: No Feels Safe at Home: Yes Safety Concerns: Feels Safe At This Time Smoking Status: Former smoker Tobacco Type: cigarettes ; packs per day: 0.5 ; Do You Dip or Chew Tobacco: No ; Smoking End Date: 09/2018; smoked since age 21 ; Hx Alcohol Use: Yes Alcohol type: beer and wine Alcohol Intake Frequency: Holidays/Special Occasions Hx Substance Use: No Review of Systems Constitutional: + fever, + chills, + fatigue and + anorexia; no weight loss Eyes: no worsening vision Ear, Nose, Mouth, Throat: no nasal congestion, no sore throat and no dysphagia Respiratory: no cough, no dyspnea and no dyspnea on exertion Cardiovascular: no chest pain, no orthopnea, no paroxysmal nocturnal dyspnea and no edema Gastrointestinal: + nausea and + vomiting; no abdominal pain, no diarrhea/loose stools and no blood in stools Genitourinary: no dysuria and no difficulty urinating Musculoskeletal: + myalgia Integumentary: no rash Neurologic: no tingling and no numbness Psychiatric: no depression PTSD issues Endocrine: diabetes - sugars have been controlled Physical Exam Constitutional: well developed and well nourished; no acute distress and no altered mental status Eyes: PERRL mild proptosis ENMT: external ear and nose normal, oropharynx normal Neck: trachea midline, no thyromegaly (multiple cervical nodes present b/l) Respiratory: normal respiratory effort, lungs clear to auscultation Cardiovascular: irregular, s1, s2, crisp mechanical closure sound, 2/6 systolic murmur LSB; also diastolic component ? Gastrointestinal (Abdomen): Inspection/Auscultation: normal bowel sounds; abdomen not distended Percussion/Palpation: + abdomen tender (mild - RUQ/epigastric region); no guarding, abdomen not rigid and no hepatosplenomegaly Musculoskeletal: no cyanosis or clubbing, extremities motor strength 5/5 Skin: no generalized rash; stasis changes b/l legs Neurologic: deep tendon reflexes 2+ bilaterally; no focal motor deficits Psychiatric: Orientation: alert and oriented x 3 Lymphatic: + lymphadenopathy (supraclavicular - right ) and + cervical lymphadenopathy (b/l neck) Results & Data Vital Signs (Past 12 Hours) Vital Signs Temp Pulse Resp BP Pulse Ox 05/07/19 17:04 37.2 C 05/07/19 17:00 74 26 H 98/52 L 93 05/07/19 16:57 80 21 91/48 L 94 05/07/19 16:56 75 17 95 05/07/19 16:31 77 22 94/44 L 05/07/19 16:30 76 15 05/07/19 16:23 76 17 102/56 L 05/07/19 16:20 76 19 05/07/19 16:10 86 22 88 L 05/07/19 16:00 84 19 93 05/07/19 15:54 105 H 17 89/53 L 92 05/07/19 15:53 108 H 19 05/07/19 15:40 77 24 05/07/19 15:38 91 H 25 H 99/51 L 05/07/19 15:37 75 25 H 05/07/19 15:00 72 25 H 05/07/19 14:50 70 23 05/07/19 14:40 72 18 05/07/19 14:30 70 20 114/59 L 05/07/19 14:26 70 16 105/53 L 05/07/19 14:20 70 23 05/07/19 14:10 71 25 H 05/07/19 14:09 71 20 05/07/19 13:50 70 20 96 05/07/19 13:33 38.7 C H 74 20 117/66 100 Laboratory Results Laboratory Results - last 24 hr 05/07/19 05/07/19 05/07/19 14:05 14:05 14:07 WBC 4.73 L RBC 3.05 L Hgb 9.7 L Hct 29.8 L MCV 97.7 MCH 31.8 MCHC 32.6 RDW Std Deviation 53.1 H RDW Coeff of Dunia 14.8 H Plt Count 217 MPV 9.3 Immature Gran % (Auto) 0.2 Neut % (Auto) 80.4 Lymph % (Auto) 11.0 Randolph % (Auto) 7.8 Eos % (Auto) 0.0 Baso % (Auto) 0.6 Immature Gran # (Auto) 0.01 Neut # (Auto) 3.80 Lymph # (Auto) 0.52 L Randolph # (Auto) 0.37 Eos # (Auto) 0.00 Baso # (Auto) 0.03 PT 21.8 H INR 2.3 H Sodium 133 L Potassium 2.6 L Chloride 96 L Carbon Dioxide 28 Anion Gap 10.0 BUN 27 H Creatinine 1.52 H Est Cr Clr Drug Dosing 40.9 Est GFR ( Amer) 43.4 Est GFR (Non-Af Amer) 37.4 BUN/Creatinine Ratio 18.0 Glucose 130 H Calcium 8.9 Magnesium 2.6 H Total Bilirubin 1.1 H AST 41 H ALT 29 Alkaline Phosphatase 141 H Total Protein 8.3 H Albumin 4.2 Globulin 4.1 H Albumin/Globulin Ratio 1.0 Lipase 152 Random Cortisol Urine Color Urine Appearance Urine pH Ur Specific [place] Urine Protein Urine Glucose (UA) Urine Ketones Urine Blood Urine Nitrite Urine Bilirubin Urine Urobilinogen Ur Leukocyte Esterase Urine WBC (Auto) Urine RBC (Auto) U Hyaline Cast (Auto) U Epithel Cells (Auto) Urine Bacteria (Auto) RBC Casts Monoscreen 05/07/19 05/07/19 05/07/19 14:07 14:07 15:55 WBC RBC Hgb Hct MCV MCH MCHC RDW Std Deviation RDW Coeff of [place] Plt Count MPV Immature Gran % (Auto) Neut % (Auto) Lymph % (Auto) Randolph % (Auto) Eos % (Auto) Baso % (Auto) Immature Gran # (Auto) Neut # (Auto) Lymph # (Auto) Randolph # (Auto) Eos # (Auto) Baso # (Auto) PT INR Sodium Potassium Chloride Carbon Dioxide Anion Gap BUN Creatinine Est Cr Clr Drug Dosing Est GFR ( Amer) Est GFR (Non-Af Amer) BUN/Creatinine Ratio Glucose Calcium Magnesium Total Bilirubin AST ALT Alkaline Phosphatase Total Protein Albumin Globulin Albumin/Globulin Ratio Lipase Random Cortisol Pending Urine Color Yellow Urine Appearance Clear Urine pH 6.0 Ur Specific [place] 1.014 Urine Protein Trace H Urine Glucose (UA) 2+ H Urine Ketones Negative Urine Blood Trace H Urine Nitrite Negative Urine Bilirubin Negative Urine Urobilinogen Negative Ur Leukocyte Esterase Negative Urine WBC (Auto) 10-30 H Urine RBC (Auto) 5-10 H U Hyaline Cast (Auto) 1-5 U Epithel Cells (Auto) >30 H Urine Bacteria (Auto) 1+ H RBC Casts 1-5 H Monoscreen Negative Diagnostic Findings CT abd/pelvis - IMPRESSION: 1. Cholelithiasis with findings of acute cholecystitis. Surgical consultation is advised. 2. The liver is cirrhotic in morphology and heterogeneous in attenuation. 3. There is trace abdominopelvic ascites. 4. Marked cardiomegaly and trace right pleural effusion. 5. The adrenal glands appear hyperemic. This is nonspecific and can be seen in the setting of hypotension/shock. Code Status & VTE Plan Code Status full code VTE Prophylaxis Plan VTE Prophylaxis will be ordered: Yes PG Care Time/CCT Total # of Minutes Spent Total Time Spent with Patient: Total time spent is greater than 50% in coordination of care (as documented) at patient's floor/unit and/or counseling patient: (1) DM w/o complication type II Diabetes mellitus long-term insulin use: without [employer] use Qualified Cod e(s): E11.9 - Type 2 diabetes mellitus without complications (2) Anemia Anemia type: other cause Other causes of anemia: other cause, not classified Qualified Code(s): D64.89 - Other specified anemias (3) Atrial fibrillation Atrial fibrillation type: permanent Qualified Code(s): I48.2 - Chronic atrial fibrillation (4) Leukopenia Leukopenia type: unspecified Qualified Code(s): D72.819 - Decreased white blood cell count, unspecified (5) Sepsis Sepsis type: sepsis due to unspecified organism Sepsis acute organ dysfunction status: with acute organ dysfunction Severe sepsis acute organ dysf unction type: acute renal failure Acute renal failure type: unspecified Severe sepsis shock status: without septic shock Qualified Code(s): A41.9 - Sepsis, unspecified organism; R65.20 - Severe sepsis without septic shock; N17.9 - Acute kidney failure, unspecified
[2019-05-07 18:35] LABS: Magnesium 2.6 mg/dl (1.8-2.4)
[2019-05-07] MEDS ORDERED: POTASSIUM CHLORIDE 10 MEQ TABCR PO STA (19:03)
--- NOTE | 2019-05-07 19:45 | Emergency Department Note ---
Entered by Sarah Cruz acting as a scribe for Gilles Bridges DO History of Present Illness General Chief complaint: Abdominal Pain Stated complaint: STOMACH VIRUS Source: patient Mode of arrival: ambulatory Limitations: no limitations History of Present Illness Radiation: non-radiation Pain Consistency: + constant Relieved By: + none Exacerbated By: + none Associated symptoms: + cough, + fever/chills, + loss of appetite, + nausea/vomiting and + other (-abnormal vaginal bleeding or discharge, -diarrhea, -abdominal pain); no chest pain and no shortness of breath Treatments prior to arrival: none The patient is a 59 year old female with a PMHX of mitral valve replacement and pacemaker placement who presents to the ED with complaints of weakness. She states she has had a "stomach virus" since 04/14/2019. Her symptoms started with nausea, vomiting, abdominal pain, a fever and lethargy. She last vomited 1 week ago and denies any current abdominal pain. She does have a minimal cough. She has continued to feel weak and "run down", and notes her PCP, MAURO Carey, told her she will "hang on to this for a while" because of her history of heart disease. She states she is too nauseous to eat, which is very unusual for her. She denies any recent chest pain, shortness of breath, diarrhea, abnormal vaginal bleeding or discharge. The patient declines wanting an Xray or CT scan because of concerns about exposure to radiation. Home Medications Home Medications Medication Instructions Recorded Confirmed Type empagliflozin [Jardiance] 10 mg PO QAM 05/07/19 05/07/19 History metformin 500 mg PO UNKNOWN 05/07/19 05/07/19 History potassium chloride 60 meq PO BID 05/07/19 05/07/19 History torsemide 150 mg PO DAILY 05/07/19 05/07/19 History warfarin 4 mg PO DIRECTED 05/07/19 05/07/19 History warfarin 6 mg PO DIRECTED 05/07/19 05/07/19 History Allergies Allergy/AdvReac Type Severity Reaction Status Date / Time adhesive Allergy Mild rash Verified 05/07/19 14:26 codeine Allergy Mild . Verified 05/07/19 14:26 lorazepam Allergy Mild . Verified 05/07/19 14:26 Corticosteroids Allergy Unknown HYPOTENSION Verified 05/07/19 14:26 (Glucocorticoids) morphine Allergy Unknown mental Verified 05/07/19 14:26 status change NSAIDS (Non-Steroidal Allergy Unknown HYPOTENSION Verified 05/07/19 14:26 Anti-Inflamma azithromycin Allergy Unknown Unverified 05/07/19 14:26 [From Zithromax Z-Anton] zolpidem [From Ambien] Allergy Unknown Unverified 05/07/19 14:26 prednisone AdvReac Unknown LOW BP D/T Verified 05/07/19 14:26 FLUID SHIFT Anti-Depressents Allergy Unknown Uncoded 05/07/19 14:26 Past Med/Surg History Medical History Atrial fibrillation Chronic cor pulmonale DM w/o complication type II Mitral stenosis Tricuspid stenosis, acquired due to prior tricuspid valve repair [place] teeth removed Surgical History History of permanent cardiac pacemaker placement 2019 - placed due to complete heart block H/O mitral valve replacement 1985, initial MVR at [facility] ([place]); [address] [facility] valve; INR goal 2.5-3.5 H/O tricuspid valve repair initial - 1985; repeat TV repair 2004 H/O tympanostomy History of bilateral tubal ligation History of cardiac radiofrequency ablation for a.fib - 2003 Family History Mother , 60s Gastric cancer Father , age 65 Lung cancer Social History marital status: Single marital status details: 1 son Current Living Situation: Alone Current Living Situation Comment: lives in [place] current occupational status: employed 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 and A total of 10 systems reviewed and were otherwise negative Physical Exam Vital Signs Vital Signs - 24 hr 05/07/19 13:33 05/07/19 13:50 05/07/19 14:09 Temperature 38.7 C H Temperature Source Oral Sepsis Recent Fever Within 48 Hours No Sepsis Action Taken by Nursing No Action Required Pulse Rate 74 70 71 Pulse Rate from SpO2 Sensor Pulse Rhythm Regular Respiratory Rate 20 20 20 Respiratory Effort / Characteristics Non-Labored Respiratory Depth Normal Respiratory Pattern Regular Blood Pressure 117/66 Blood Pressure Mean 83 Pulse Oximetry 100 96 Oxygen Delivery Method Room Air Room Air 05/07/19 14:10 05/07/19 14:20 05/07/19 14:26 Temperature Temperature Source Sepsis Recent Fever Within 48 Hours Sepsis Action Taken by Nursing Pulse Rate 71 70 70 Pulse Rate from SpO2 Sensor Pulse Rhythm Respiratory Rate 25 H 23 16 Respiratory Effort / Characteristics Respiratory Depth Respiratory Pattern Blood Pressure 105/53 L Blood Pressure Mean 70 Pulse Oximetry Oxygen Delivery Method 05/07/19 14:30 05/07/19 14:40 05/07/19 14:50 Temperature Temperature Source Sepsis Recent Fever Within 48 Hours Sepsis Action Taken by Nursing Pulse Rate 70 72 70 Pulse Rate from SpO2 Sensor Pulse Rhythm Respiratory Rate 20 18 23 Respiratory Effort / Characteristics Respiratory Depth Respiratory Pattern Blood Pressure 114/59 L Blood Pressure Mean 77 Pulse Oximetry Oxygen Delivery Method 05/07/19 15:00 05/07/19 15:37 05/07/19 15:38 Temperature Temperature Source Sepsis Recent Fever Within 48 Hours Sepsis Action Taken by Nursing Pulse Rate 72 75 91 H Pulse Rate from SpO2 Sensor Pulse Rhythm Respiratory Rate 25 H 25 H 25 H Respiratory Effort / Characteristics Respiratory Depth Respiratory Pattern Blood Pressure 99/51 L Blood Pressure Mean 67 Pulse Oximetry Oxygen Delivery Method 05/07/19 15:40 05/07/19 15:53 05/07/19 15:54 Temperature Temperature Source Sepsis Recent Fever Within 48 Hours Sepsis Action Taken by Nursing Pulse Rate 77 108 H 105 H Pulse Rate from SpO2 Sensor 106 H Pulse Rhythm Respiratory Rate 24 19 17 Respiratory Effort / Characteristics Respiratory Depth Respiratory Pattern Blood Pressure 89/53 L Blood Pressure Mean 65 Pulse Oximetry 92 Oxygen Delivery Method 05/07/19 16:00 05/07/19 16:10 05/07/19 16:20 Temperature Temperature Source Sepsis Recent Fever Within 48 Hours Sepsis Action Taken by Nursing Pulse Rate 84 86 76 Pulse Rate from SpO2 Sensor 81 81 Pulse Rhythm Respiratory Rate 19 22 19 Respiratory Effort / Characteristics Respiratory Depth Respiratory Pattern Blood Pressure Blood Pressure Mean 73 Pulse Oximetry 93 88 L Oxygen Delivery Method 05/07/19 16:23 05/07/19 16:30 05/07/19 16:31 Temperature Temperature Source Sepsis Recent Fever Within 48 Hours Sepsis Action Taken by Nursing Pulse Rate 76 76 77 Pulse Rate from SpO2 Sensor Pulse Rhythm Respiratory Rate 17 15 22 Respiratory Effort / Characteristics Respiratory Depth Respiratory Pattern Blood Pressure 102/56 L 94/44 L Blood Pressure Mean 71 60 Pulse Oximetry Oxygen Delivery Method 05/07/19 16:56 05/07/19 16:57 05/07/19 17:00 Temperature Temperature Source Sepsis Recent Fever Within 48 Hours Sepsis Action Taken by Nursing Pulse Rate 75 80 74 Pulse Rate from SpO2 Sensor 72 74 77 Pulse Rhythm Respiratory Rate 17 21 26 H Respiratory Effort / Characteristics Respiratory Depth Respiratory Pattern Blood Pressure 91/48 L 98/52 L Blood Pressure Mean 62 67 Pulse Oximetry 95 94 93 Oxygen Delivery Method 05/07/19 17:04 05/07/19 17:10 05/07/19 17:20 Temperature 37.2 C Temperature Source Oral Sepsis Recent Fever Within 48 Hours Sepsis Action Taken by Nursing Pulse Rate 71 72 Pulse Rate from SpO2 Sensor 72 73 Pulse Rhythm Respiratory Rate 21 20 Respiratory Effort / Characteristics Respiratory Depth Respiratory Pattern Blood Pressure Blood Pressure Mean Pulse Oximetry 94 93 Oxygen Delivery Method 05/07/19 17:30 05/07/19 17:40 05/07/19 17:50 Temperature Temperature Source Sepsis Recent Fever Within 48 Hours Sepsis Action Taken by Nursing Pulse Rate 78 74 101 H Pulse Rate from SpO2 Sensor 77 75 96 H Pulse Rhythm Respiratory Rate 19 18 22 Respiratory Effort / Characteristics Respiratory Depth Respiratory Pattern Blood Pressure 102/57 L Blood Pressure Mean 72 Pulse Oximetry 100 100 100 Oxygen Delivery Method 05/07/19 18:00 05/07/19 18:10 05/07/19 18:20 Temperature Temperature Source Sepsis Recent Fever Within 48 Hours Sepsis Action Taken by Nursing Pulse Rate 71 71 75 Pulse Rate from SpO2 Sensor 78 81 Pulse Rhythm Respiratory Rate 17 19 19 Respiratory Effort / Characteristics Respiratory Depth Respiratory Pattern Blood Pressure 88/60 L Blood Pressure Mean 69 Pulse Oximetry 100 100 Oxygen Delivery Method 05/07/19 18:30 05/07/19 18:50 05/07/19 19:00 Temperature Temperature Source Sepsis Recent Fever Within 48 Hours Sepsis Action Taken by Nursing Pulse Rate 76 Pulse Rate from SpO2 Sensor Pulse Rhythm Respiratory Rate 19 Respiratory Effort / Characteristics Respiratory Depth Respiratory Pattern Blood Pressure 100/55 L 100/64 89/61 L Blood Pressure Mean 70 76 70 Pulse Oximetry Oxygen Delivery Method 05/07/19 19:04 05/07/19 19:30 Temperature Temperature Source Sepsis Recent Fever Within 48 Hours Sepsis Action Taken by Nursing Pulse Rate 77 Pulse Rate from SpO2 Sensor Pulse Rhythm Respiratory Rate 19 Respiratory Effort / Characteristics Respiratory Depth Respiratory Pattern Blood Pressure 93/67 L Blood Pressure Mean 75 Pulse Oximetry 96 Oxygen Delivery Method Room Air GENERAL: Patient is alert, sitting up in bed, chronically ill-appearing, disheveled, holding abdomen EYE EXAM: normal conjunctiva OROPHARYNX: no exudate, no erythema, lips, buccal mucosa, and tongue normal and mucous membranes are moist NECK: supple, no nuchal rigidity, no adenopathy, non-tender LUNGS: Clear to auscultation. Normal chest wall mechanics HEART: no murmurs, S1 normal and S2 normal ABDOMEN: abdomen soft, minimal tenderness throughout upper abdomen, normo-active bowel sounds, no masses, no rebound or guarding. BACK: Back is symmetrical on inspection and there is no deformity, no midline tenderness, no CVA tenderness. SKIN: no rashes and no bruising UPPER EXTREMITIES: upper extremities are grossly normal. LOWER EXTREMITIES: No pitting edema. NEURO EXAM: Normal sensorium, cranial nerves II-XII grossly intact, normal speech, no gross weakness of arms, no gross weakness of legs. Gross sensation intact. Course ED COURSE: Vital signs were reviewed and showed the patient is febrile and hypotensive. The patients medical record was reviewed The above diagnostic studies were performed and reviewed. ED treatments and interventions as stated above. 1358: The patient was evaluated in room C6. A complete history and physical examination was performed. 1615: I reevaluated the patient. She is resting comfortably. She is now agreeable to CT scan. 1750: I discussed the patients case with Dr. Arana, [facility] General Surgery. The patient will be further evaluated. 1755: I discussed the patients case with Dr. Hung, [facility] Hospitalist. The patient will be further evaluated. 1810: Upon reevaluation, the patient is resting comfortably. I discussed my findings with the patient and she understands and agrees with the treatment plan. Based on the patients age, coexisting illnesses, exam and lab findings the decision to treat as an inpatient was made. The patient remained stable while under my care. The patient will be evaluated for further management. Administered Medications Ioversol (Optiray 320 100ml) 94 ml IV ONCE PRN PRN Reason: Interaction Checking Stop: 05/11/19 16:41 Last Admin: 05/07/19 16:43 Dose: 94 ml Documented by: [id number] Discontinued Medications Acetaminophen (Tylenol) 1,000 mg PO NOW STA Stop: 05/07/19 14:06 Last Admin: 05/07/19 14:20 Dose: 1,000 mg Documented by: [id number] Sodium Chloride (Nss 1000ml) 2,000 mls @ 999 mls/hr IV .Q2H1M ONE Stop: 05/07/19 16:04 Last Infusion: 05/07/19 17:27 Dose: 0 mls/hr Documented by: [id number] Admin: 05/07/19 14:21 Dose: 999 mls/hr Documented by: [id number] Potassium Chloride (K Matheus / Wtr) 10 meq in 100 mls @ 100 mls/hr IV Q1H MIKIE Stop: 05/07/19 17:29 Last Admin: 05/07/19 16:03 Dose: Not Given Documented by: [id number] Magnesium Sulfate/Dextrose (Magnesium Sulfate / D5w) 1 gm in 100 mls @ 100 mls/hr IV ONE ONE Stop: 05/07/19 16:19 Last Infusion: 05/07/19 17:00 Dose: 0 mls/hr Documented by: [id number] Admin: 05/07/19 15:51 Dose: 100 mls/hr Documented by: [id number] Piperacillin Sod/Tazobactam Sod (Zosyn) 4.5 gm in 120 mls @ 240 mls/hr IV NOW ONE Stop: 05/07/19 16:34 Last Infusion: 05/07/19 18:51 Dose: 0 mls/hr Documented by: [id number] Admin: 05/07/19 17:03 Dose: 240 mls/hr Documented by: [id number] Sodium Chloride (Nss 1000ml) 2,000 mls @ 999 mls/hr IV .Q2H1M ONE Stop: 05/07/19 18:05 Last Infusion: 05/07/19 18:50 Dose: 0 mls/hr Documented by: [id number] Admin: 05/07/19 17:03 Dose: 999 mls/hr Documented by: [id number] Ondansetron HCl (Zofran) 4 mg IV NOW STA Stop: 05/07/19 14:05 Last Admin: 05/07/19 14:21 Dose: 4 mg Documented by: [id number] Potassium Chloride (Klor-Con Pwd) 40 meq PO NOW STA Stop: 05/07/19 16:02 Last Admin: 05/07/19 16:24 Dose: 40 meq Documented by: [id number] Potassium Chloride (Klor-Con M10) 40 meq PO NOW STA Stop: 05/07/19 19:04 Last Admin: 05/07/19 19:17 Dose: 40 meq Documented by: [id number] Medical Decision Making Differential Diagnosis Differential diagnosis includes etiologies such as sepsis, UTI, pneumonia, metabolic, electrolyte abnormalities, cardiac sources, intracerebral event, toxicologic, neurologic, as well as others were entertained. Medical Records Attestation: I reviewed the patient's medical records. Home Medications Current Medication List: was personally reviewed by me Laboratory Data Attestation: I reviewed the patient's lab results. Result diagrams: 05/07/19 14:05 05/07/19 14:05 Lab Results 05/07/19 05/07/19 05/07/19 Range/Units 14:05 14:05 14:07 WBC 4.73 L (4.8-10.8) K/uL RBC 3.05 L (4.2-5.4) M/uL Hgb 9.7 L (12.0-16.0) g/dL Hct 29.8 L (37-47) % MCV 97.7 (80-100) fL MCH 31.8 (25-34) pg MCHC 32.6 (32-36) g/dL RDW Std Deviation 53.1 H (36.4-46.3) fL RDW Coeff of Dunia 14.8 H (11.5-14.5) % Plt Count 217 (130-400) K/uL MPV 9.3 (7.4-10.4) fL Immature Gran % (Auto) 0.2 % Neut % (Auto) 80.4 % Lymph % (Auto) 11.0 % [place] % (Auto) 7.8 % Eos % (Auto) 0.0 % Baso % (Auto) 0.6 % Immature Gran # (Auto) 0.01 (0.00-0.02) K/uL Neut # (Auto) 3.80 (1.4-6.5) K/uL Lymph # (Auto) 0.52 L (1.2-3.4) K/uL [place] # (Auto) 0.37 (0.11-0.59) K/uL Eos # (Auto) 0.00 (0-0.5) K/uL Baso # (Auto) 0.03 (0-0.2) K/uL PT 21.8 H (9.0-12.0) Seconds INR 2.3 H (0.9-1.1) Sodium 133 L (136-145) mmol/L Potassium 2.6 L (3.5-5.1) mmol/L Chloride 96 L (98-107) mmol/L Carbon Dioxide 28 (21-32) mmol/L Anion Gap 10.0 (3-11) BUN 27 H (7-18) mg/dl Creatinine 1.52 H (0.6-1.2) mg/dl Est Cr Clr Drug Dosing 40.9 ml/min Est GFR ( Amer) 43.4 Est GFR (Non-Af Amer) 37.4 BUN/Creatinine Ratio 18.0 (10-20) Glucose 130 H (70-99) mg/dl Calcium 8.9 (8.5-10.1) mg/dl Magnesium 2.6 H (1.8-2.4) mg/dl Total Bilirubin 1.1 H (0.2-1) mg/dl AST 41 H (15-37) U/L ALT 29 (12-78) U/L Alkaline Phosphatase 141 H (45-117) U/L Total Protein 8.3 H (6.4-8.2) gm/dl Albumin 4.2 (3.4-5.0) gm/dl Globulin 4.1 H (2.5-4.0) gm/dl Albumin/Globulin Ratio 1.0 (0.9-2) Lipase 152 (73-393) U/L Urine Color Urine Appearance (Clear) Urine pH (4.5-7.5) Ur Specific [place] (1.000-1.030) Urine Protein (Negative) Urine Glucose (UA) (Negative) Urine Ketones (Negative) Urine Blood (Negative) Urine Nitrite (Negative) Urine Bilirubin (Negative) Urine Urobilinogen (Negative) Ur Leukocyte Esterase (Negative) Urine WBC (Auto) (0-5) /hpf Urine RBC (Auto) (0-4) /hpf U Hyaline Cast (Auto) (0-5) /lpf U Epithel Cells (Auto) (0-5) /lpf Urine Bacteria (Auto) (Negative) RBC Casts (0) /lpf Monoscreen (Negative) 05/07/19 05/07/19 Range/Units 14:07 15:55 WBC (4.8-10.8) K/uL RBC (4.2-5.4) M/uL Hgb (12.0-16.0) g/dL Hct (37-47) % MCV (80-100) fL MCH (25-34) pg MCHC (32-36) g/dL RDW Std Deviation (36.4-46.3) fL RDW Coeff of Dunia (11.5-14.5) % Plt Count (130-400) K/uL MPV (7.4-10.4) fL Immature Gran % (Auto) % Neut % (Auto) % Lymph % (Auto) % [place] % (Auto) % Eos % (Auto) % Baso % (Auto) % Immature Gran # (Auto) (0.00-0.02) K/uL Neut # (Auto) (1.4-6.5) K/uL Lymph # (Auto) (1.2-3.4) K/uL [place] # (Auto) (0.11-0.59) K/uL Eos # (Auto) (0-0.5) K/uL Baso # (Auto) (0-0.2) K/uL PT (9.0-12.0) Seconds INR (0.9-1.1) Sodium (136-145) mmol/L Potassium (3.5-5.1) mmol/L Chloride (98-107) mmol/L Carbon Dioxide (21-32) mmol/L Anion Gap (3-11) BUN (7-18) mg/dl Creatinine (0.6-1.2) mg/dl Est Cr Clr Drug Dosing ml/min Est GFR ( Amer) Est GFR (Non-Af Amer) BUN/Creatinine Ratio (10-20) Glucose (70-99) mg/dl Calcium (8.5-10.1) mg/dl Magnesium (1.8-2.4) mg/dl Total Bilirubin (0.2-1) mg/dl AST (15-37) U/L ALT (12-78) U/L Alkaline Phosphatase (45-117) U/L Total Protein (6.4-8.2) gm/dl Albumin (3.4-5.0) gm/dl Globulin (2.5-4.0) gm/dl Albumin/Globulin Ratio (0.9-2) Lipase (73-393) U/L Urine Color Yellow Urine Appearance Clear (Clear) Urine pH 6.0 (4.5-7.5) Ur Specific [place] 1.014 (1.000-1.030) Urine Protein Trace H (Negative) Urine Glucose (UA) 2+ H (Negative) Urine Ketones Negative (Negative) Urine Blood Trace H (Negative) Urine Nitrite Negative (Negative) Urine Bilirubin Negative (Negative) Urine Urobilinogen Negative (Negative) Ur Leukocyte Esterase Negative (Negative) Urine WBC (Auto) 10-30 H (0-5) /hpf Urine RBC (Auto) 5-10 H (0-4) /hpf U Hyaline Cast (Auto) 1-5 (0-5) /lpf U Epithel Cells (Auto) >30 H (0-5) /lpf Urine Bacteria (Auto) 1+ H (Negative) RBC Casts 1-5 H (0) /lpf Monoscreen Negative (Negative) Imaging Data Radiologist's Impression: Radiology results as stated below per my review and the radiologist's interpretation: CT SCAN OF THE ABDOMEN AND PELVIS WITH IV CONTRAST CLINICAL HISTORY: Nausea and vomiting. Hypotension. COMPARISON STUDY: Abdominal CT dated 10/03/2018. TECHNIQUE: Following the IV administration of 94 cc of Optiray 320, CT scan of the abdomen and pelvis is performed from the lung bases to the proximal femora. Images are reviewed in the axial, sagittal, and coronal planes. IV contrast was administered without complication. A dose lowering technique was utilized adhering to the principles of ALARA. CT DOSE: 376.10 mGy.cm FINDINGS: Lung bases: The patient is status post midline sternotomy. Pacemaker leads are noted. The heart is markedly enlarged and without pericardial effusion. The coronary arteries are densely calcified. There is a trace right pleural effusion and bibasilar atelectasis. Bilateral breast implants are partially imaged. There is a tiny hiatal hernia. Liver: The contrast-enhanced liver is cirrhotic in morphology and heterogeneous in attenuation. There is enlargement of the left lobe and caudate and nodularity of the surface contour. There is no intrahepatic biliary ductal dilatation. The hepatic veins and portal veins are patent. Gallbladder: Calcified gallstones are noted. The gallbladder wall is thickened and hyperemic. There is pericholecystic inflammation and trace fluid. The appearance is consistent with acute cholecystitis. Spleen: Normal in size and attenuation. Pancreas: Unremarkable. Adrenal glands: The adrenal glands appear hyperemic. Kidneys: The contrast enhanced kidneys are normal in size and without hydronephrosis. The kidneys enhance symmetrically. Abdominal vasculature: The abdominal aorta is normal in course and caliber. Bowel: There is mild colonic diverticulosis without CT evidence of acute diverticulitis. Moderate colonic fecal retention is observed. There is no bowel obstruction. The appendix is nonvisualized. Peritoneum: There is trace perihepatic fluid as well as trace free fluid in the pelvis. No intraperitoneal free air is identified. There is a large fat-c ontaining umbilical hernia. There is a large fat-containing ventral hernia in the upper abdomen seen on image #85. Lymphadenopathy: None. Pelvic viscera: The bladder, uterus, and adnexa are normal as imaged. Skeletal structures: The skeletal structures are osteopenic. No lytic or blastic lesions are seen. IMPRESSION: 1. Cholelithiasis with findings of acute cholecystitis. Surgical consultation is advised. 2. The liver is cirrhotic in morphology and heterogeneous in attenuation. 3. There is trace abdominopelvic ascites. 4. Marked cardiomegaly and trace right pleural effusion. 5. The adrenal glands appear hyperemic. This is nonspecific and can be seen in the setting of hypotension/shock. 6. Additional findings as above. Electronically signed by: Felice Galarza M.D. 05/07/2019 5:25 PM ULTRASOUND RIGHT UPPER QUADRANT ABDOMEN CLINICAL HISTORY: Nausea and vomiting. COMPARISON STUDY: Abdominal CT dated 10/03/2018. TECHNIQUE: Real-time, grayscale, and color flow sonography of the right upper quadrant of the abdomen was performed. Images are reviewed in the transverse and longitudinal planes. FINDINGS: Liver: The liver is normal in size and heterogeneous in echotexture. There is no intrahepatic biliary ductal dilatation. The main portal vein is patent. Gallbladder: There are shadowing calcified gallstones which measure up to 1 cm. The gallbladder wall is top normal in thickness measuring up to 3 mm. No pericholecystic fluid is identified. A sonographic Castrejon's sign is reportedly absent. The common bile duct measures up to 0.5 cm in diameter. Pancreas: Visualized portions of the pancreatic head and body are normal in appearance. The splenic vein is patent. Right kidney: Survey images of the right kidney demonstrate normal size and echotexture. There is no hydronephrosis. Ascites: None. IMPRESSION: 1. Cholelithiasis without sonographic evidence of acute cholecystitis. If there is strong clinical concern for acute cholecystitis a hepatobiliary scan could be considered. 2. There is no intra or extrahepatic biliary ductal dilatation. 3. Heterogeneous hepatic echotexture. Electronically signed by: Felice Galarza M.D. 05/07/2019 3:52 PM Blood Pressure Blood Pressure Findings: Low blood pressure MDM Narrative Patient is a 59-year-old female who presents the ER for fever and weakness associate with nausea not wanting to eat. IV was established blood work was obtained and showed a mild leukopenia at 4.7 thousand. There is an anemia at 9.7. INR was therapeutic at 9.3. BMP with a sodium of 133 potassium 2.6. Creatinine was slightly elevated 1.52. Mild transaminitis. Bilirubin slightly elevated 1.1. Lipase is unremarkable. UA was contaminated with multiple epithelial cells. Ultrasound was initially unremarkable. I recommend an x-ray and CT abdomen pelvis which she declined and following multiple discussions she was eventually agreeable to a CT of her abdomen and pelvis. She was extremely concerned for cancer. I noted with her blood pressure dropping into the low 80s that was extremely important for this to be obtained especially with a temperature 39.5. Patient was given 2 L IV fluids. She is given IV Zosyn. She was updated bedside. Systolic blood pressures improved from the 80s to 90s and low 100s. CT shows acute cholecystitis. Discussed with general surgery. Discussed with hospitalist. Patient will be admitted for sepsis secondary to acute cholecystitis. Impression & Plan Sepsis, Acute cholecystitis, Acute hypotension, Fever, Elevated INR Discharge Plan Visit Data Chief Complaint: Abdominal Pain Stated Complaint: STOMACH VIRUS ED Provider: Gilles Bridges Discharge Problem: Sepsis, Acute cholecystitis, Acute hypotension, Fever, Elevated INR Patient Disposition: Being Evaluated by Hospitalist Discharge Instructions Interventions: ED Discharge Assessment Last Done: 05/07/19 19:30 Forms Stand Alone Forms: Call Back Authorization, [facility] Prescriptions Prescriptions: No Action warfarin 4 mg tablet 6 mg PO DIRECTED RF: 0 warfarin 4 mg tablet 4 mg PO DIRECTED RF: 0 potassium chloride 20 mEq tablet,ER particles/crystals 60 meq PO BID RF: 0 torsemide 100 mg tablet 150 mg PO DAILY RF: 0 metformin 500 mg tablet extended release 24 hr 500 mg PO UNKNOWN RF: 0 Jardiance 10 mg tablet 10 mg PO QAM RF: 0 Referrals Referrals: Kassidy Robertson CRNP [Primary Care Provider] - The scribe's documentation has been prepared under my direction and personally reviewed by me in its entirety. I confirm that the note above accurately reflects all work, treatment, procedures, and medical decision making performed by me.
[2019-05-07] MEDS ORDERED: Heparin IV Standard *NO* Bolus IV SCH (20:10)
[2019-05-07] MEDS: HEPARIN SODIUM/DEXTROSE 25,000 UNITS/500 ML BAG IV SCH (21:43)
[2019-05-07] MEDS: PIPERACILLIN/TAZOBACTAM 3.375 GM in DEXTROSE 5% 100 ML IV SCH (21:56)
[2019-05-07] MEDS: NSS + 20MEQ KCL 20 MEQ/1,000 ML BAG IV SCH (21:58)
[2019-05-07] MEDS ORDERED: POTASSIUM CHLORIDE 20 MEQ TABCR PO ONE (22:30)
[2019-05-08 04:02] LABS: Basophils # (auto) 0.03 K/uL (0-0.2); Basophils % (auto) 0.5 %; Hemoglobin 8.5 g/dL (12.0-16.0); Immature Granulocytes # (auto) 0.01 K/uL (0.00-0.02); Immature Granulocytes % (auto) 0.2 %; Lymphocytes # (auto) 0.45 K/uL (1.2-3.4); Lymphocytes % (auto) 8.1 %; Mean Corpuscular Hemoglobin 32.1 pg (25-34); Mean Corpuscular Hgb Conc 32.7 g/dL (32-36); Mean Corpuscular Volume 98.1 fL (80-100); Monocytes % (auto) 5.4 %; Neutrophils # (auto) 4.78 K/uL (1.4-6.5); Neutrophils % (auto) 85.8 %; Platelet Count 157 K/uL (130-400); RDW Standard Deviation 53.8 fL (36.4-46.3); Red Blood Count 2.65 M/uL (4.2-5.4); White Blood Count 5.57 K/uL (4.8-10.8)
[2019-05-08 04:26] LABS: Partial Thromboplastin Ratio 5.1
[2019-05-08 04:30] LABS: Albumin Level 3.3 gm/dl (3.4-5.0); BUN Creatinine Ratio 16.4 (10-20); Bilirubin,Total 0.9 mg/dl (0.2-1); Calcium 7.6 mg/dl (8.5-10.1); Creatinine Clr Calc Pharmacy 42.5 ml/min; Est GFR (African American) 44.1; Globulin 3.3 gm/dl (2.5-4.0); Potassium 3.6 mmol/L (3.5-5.1); Total Protein 6.6 gm/dl (6.4-8.2)
[2019-05-08] MEDS: PIPERACILLIN/TAZOBACTAM 3.375 GM in DEXTROSE 5% 100 ML IV SCH ×3 (05:12→21:39)
[2019-05-08] MEDS: NSS + 20MEQ KCL 20 MEQ/1,000 ML BAG IV SCH (05:14)
[2019-05-08] MEDS ORDERED: GLUCOSE 10 TABS/TUBE PO PRN (05:15)
[2019-05-08] MEDS ORDERED: DEXTROSE 50% 50 ML SYRINGE IV PRN (05:15)
[2019-05-08] MEDS ORDERED: GLUCAGON FOR INJ 1 MG VIAL IM PRN (05:15)
[2019-05-08] MEDS ORDERED: CARBOHYDRATES FOR HYPOGLYCEMIA PO PRN (05:15)
[2019-05-08] MEDS ORDERED: GLUCOSE 40% GEL 15 GM TUBE PO PRN (05:15)
[2019-05-08] MEDS: INSULIN ASPART 100 UNITS/ML 3 ML PEN SC SCH ×3 (06:30→17:53)
[2019-05-08 06:58] LABS: Partial Thromboplastin Ratio 2.7
[2019-05-08 07:10] LABS: Partial Thromboplastin Time 72.3 Seconds (21.0-31.0)
[2019-05-08] MEDS ORDERED: INSULIN ASPART 100 UNITS/ML 3 ML PEN SC SCH ×2 (07:30→21:00)
[2019-05-08] MEDS: ONDANSETRON INJ 2 MG/ML 2 ML VIAL IV PRN ×2 (08:24→16:02)
[2019-05-08] MEDS: ACETAMINOPHEN 325 MG TAB PO PRN ×3 (08:24→21:39)
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
--- NOTE | 2019-05-08 10:16 | Surgery Consultation ---
Date of Consultation May 08, 2019 Assessment & Plan (1) Acute cholecystitis: This is a 59y F with a significant cardiac history who presents to the [facility] with worsening fatigue, fevers, and nausea who was found to have findings concerning for acute cholecystitis on CT scan imaging. Patient is experiencing nausea and right shoulder pain, but does not have any abdominal pain or tenderness on exam and LFT's not remarkably elevated. After discussing with patient she does with to proceed with surgical removal of her gallbladder. Continue IV Zosyn for abx coverage. Keep NPO with IVF for now. Appreciate cardiology input regarding pre-op risk/assessment and recommendations. Continue to hold Coumadin and check another INR today. Would like INR to be less than 1.5 prior to taking her to the OR. Will consider taking her to the OR later today vs tomorrow pending her INR and further recommendations from medicine. Patient was seen and examined with Dr. Arana. Supervising Physician Co-Signing Physician Notes Patient seen and examined, labs and imaging reviewed, agree with above. 59-year-old female presented to the emergency department with feeling ill, nausea, and p.o. intolerance. She was having fevers and had some hypotension in the emergency department. She is found to have CT scan showing cholelithiasis with acute cholecystitis. She has a history of rheumatic heart disease with mechanical valve and is on chronic anticoagulation. On exam she does not have much tenderness in her abdomen, but she is febrile. Her labs this morning show anemia with a hematocrit of 26 along with an INR above 3. She has been seen by cardiology and we will have anesthesia see her as well. Though she does not appear to have classic symptoms of cholecystitis, it does appear that her gallbladder is the culprit based on imaging studies. Plan for laparoscopic cholecystectomy with possible cholangiogram, likely tomorrow The risk of the procedure were discussed to include but not limited to bleeding, infection, retained stone, bile leak, damage surrounding structures including common bile duct, need for future or more extensive surgery, conversion open, failure to treat symptoms, and the risks of anesthesia Cardiology and medicine management and input appreciated We will give her vitamin K, repeat INR in the morning Goal INR is less than 1.5 to surgery Will stop heparin drip 6 hours prior to surgery She is aware that she is at increased risk for bleeding Type and cross for 2 units given anemia and need for blood thinners in the perioperative period She is pending heme-onc evaluation and imaging of her soft tissue of her neck for possible lymphadenopathy, if this is present and we will consider biopsying this at the same time History of Present Illness Attending Physician: Anthony Guerrero DO History of Present Illness This is a 59y F with a PMH of rheumatic heart disease with mitral valve replacement x2 on Coumadin, cardiac pacemaker, and aflutter, who presents to [facility] ED on 05/07/19 with complaints of worsening fatigue and nausea. Patient reports that since the beginning of April she endorsed feeling tired and lethargic and has had a lack of an appetite. This past Wednesday she developed nausea and difficulty swallow pills and bits of food. She went to her PCP who thought she had a stomach virus. Over the weekend the patient endorsed fevers and her symptoms continued to worsen prompting her to come to the ED for further evaluation. She also endorses some right shoulder pain. She denies diarrhea, constipation, shortness of breath, chest pain, or any abdominal pain. Work up in the ED included a RUQ US revealing cholelithiasis and a CT a/p showing + g allstones with pericholecystic inflammation and trace fluid concerning for acute cholecystitis. Patient states that she last took her coumadin on Wednesday and yesterday her INR was 2.3. Patient is without an elevated WBC, and Tbili: 0.9, ALT: 30, AST: 41, alkp: 109, lipase: 152. General surgery was consulted for further evaluation for potential surgical intervention. Allergies Allergy/AdvReac Type Severity Reaction Status Date / Time adhesive Allergy Mild rash Verified 05/07/19 14:26 codeine Allergy Mild . Verified 05/07/19 14:26 lorazepam Allergy Mild . Verified 05/07/19 14:26 Corticosteroids Allergy Unknown HYPOTENSION Verified 05/07/19 14:26 (Glucocorticoids) morphine Allergy Unknown mental Verified 05/07/19 14:26 status change NSAIDS (Non-Steroidal Allergy Unknown HYPOTENSION Verified 05/07/19 14:26 Anti-Inflamma azithromycin Allergy Unknown Unverified 05/07/19 14:26 [From Zithromax Z-Anton] zolpidem [From Ambien] Allergy Unknown Unverified 05/07/19 14:26 prednisone AdvReac Unknown LOW BP D/T Verified 05/07/19 14:26 FLUID SHIFT Anti-Depressents Allergy Unknown Uncoded 05/07/19 14:26 Home Medications Home Medications Medication Instructions Recorded Confirmed Type empagliflozin [Jardiance] 10 mg PO QAM 05/07/19 05/07/19 History metformin 500 mg PO UNKNOWN 05/07/19 05/07/19 History potassium chloride 60 meq PO BID 05/07/19 05/07/19 History torsemide 150 mg PO DAILY 05/07/19 05/07/19 History warfarin 4 mg PO DIRECTED 05/07/19 05/07/19 History warfarin 6 mg PO DIRECTED 05/07/19 05/07/19 History Patient History Medical History Atrial fibrillation Chronic cor pulmonale DM w/o complication type II Mitral stenosis Tricuspid stenosis, acquired due to prior tricuspid valve repair Sears teeth removed Surgical History History of permanent cardiac pacemaker placement 2019 - placed due to complete heart block H/O mitral valve replacement 1985, initial MVR at [facility] ([facility]); [address] [facility] [employer] Mechanical valve; INR goal 2.5-3.5 H/O tricuspid valve repair initial - 1985; repeat TV repair 2004 H/O tympanostomy History of bilateral tubal ligation History of cardiac radiofrequency ablation for a.fib - 2003 Family History Mother , 60s Gastric cancer Father , age 65 Lung cancer Social History Preferred Language: Sinhala Communication Ability: Effective Staffing Administrator Required: No Beliefs That Will Affect Care: None marital status: Single marital status details: 1 son Current Living Situation: Alone Current Living Situation Comment: lives in [place] current occupational status: employed 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 Other Information That Helps Us Care for You: No Feels Safe at Home: Yes Safety Concerns: Feels Safe At This Time Smoking Status: Former smoker Tobacco Type: cigarettes ; packs per day: 0.5 ; Do You Dip or Chew Tobacco: No ; Smoking End Date: 09/2018; smoked since age 21 ; Hx Alcohol Use: Yes Alcohol type: beer and wine Alcohol Intake Frequency: Holidays/Special Occasions Hx Substance Use: No Review of Systems Constitutional: + fever, + fatigue and + anorexia Cardiovascular: no chest pain Gastrointestinal: + nausea; no abdominal pain and no change in stools Musculoskeletal: right shoulder pain Physical Exam Physical Exam: awake/alert, appears mildly diaphoretic Constitutional: well developed and well nourished; no acute distress Respiratory: normal respiratory effort Cardiovascular: Rate/Rhythm: regular rate Gastrointestinal (Abdomen): Inspection/Auscultation: abdomen not distended Percussion/Palpation: abdomen soft; abdomen nontender Results & Data Vital Signs (Past 12 Hours) Vital Signs Temp Pulse Resp BP Pulse Ox 05/08/19 07:26 38.2 C H 70 17 109/68 92 05/08/19 02:19 37.6 C H 70 117/69 93 05/08/19 00:16 37.4 C 70 16 104/62 93 ULTRASOUND RIGHT UPPER QUADRANT ABDOMEN CLINICAL HISTORY: Nausea and vomiting. COMPARISON STUDY: Abdominal CT dated 10/03/2018. TECHNIQUE: Real-time, grayscale, and color flow sonography of the right upper quadrant of the abdomen was performed. Images are reviewed in the transverse and longitudinal planes. FINDINGS: Liver: The liver is normal in size and heterogeneous in echotexture. There is no intrahepatic biliary ductal dilatation. The main portal vein is patent. Gallbladder: There are shadowing calcified gallstones which measure up to 1 cm. The gallbladder wall is top normal in thickness measuring up to 3 mm. No pericholecystic fluid is identified. A sonographic Castrejon's sign is reportedly absent. The common bile duct measures up to 0.5 cm in diameter. Pancreas: Visualized portions of the pancreatic head and body are normal in appearance. The splenic vein is patent. Right kidney: Survey images of the right kidney demonstrate normal size and e chotexture. There is no hydronephrosis. Ascites: None. IMPRESSION: 1. Cholelithiasis without sonographic evidence of acute cholecystitis. If there is strong clinical concern for acute cholecystitis a hepatobiliary scan could be considered. 2. There is no intra or extrahepatic biliary ductal dilatation. 3. Heterogeneous hepatic echotexture. Electronically signed by: Felice Galarza M.D. 05/07/2019 3:[address] SCAN OF THE ABDOMEN AND PELVIS WITH IV CONTRAST CLINICAL HISTORY: Nausea and vomiting. Hypotension. COMPARISON STUDY: Abdominal CT dated 10/03/2018. TECHNIQUE: Following the IV administration of 94 cc of Optiray 320, CT scan of the abdomen and pelvis is performed from the lung bases to the proximal femora. Images are reviewed in the axial, sagittal, and coronal planes. IV contrast was administered without complication. A dose lowering technique was utilized adhering to the principles of ALARA. CT DOSE: 376.10 mGy.cm FINDINGS: Lung bases: The patient is status post midline sternotomy. Pacemaker leads are noted. The heart is markedly enlarged and without pericardial effusion. The coronary arteries are densely calcified. There is a trace right pleural effusion and bibasilar atelectasis. Bilateral breast implants are partially imaged. There is a tiny hiatal hernia. Liver: The contrast-enhanced liver is cirrhotic in morphology and heterogeneous in attenuation. There is enlargement of the left lobe and caudate and nodularity of the surface contour. There is no intrahepatic biliary ductal dilatation. The hepatic veins and portal veins are patent. Gallbladder: Calcified gallstones are noted. The gallbladder wall is thickened and hyperemic. There is pericholecystic inflammation and trace fluid. The appearance is consistent with acute cholecystitis. Spleen: Normal in size and attenuation. Pancreas: Unremarkable. Adrenal glands: The adrenal glands appear hyperemic. Kidneys: The contrast enhanced kidneys are normal in size and without hydronephrosis. The kidneys enhance symmetrically. Abdominal vasculature: The abdominal aorta is normal in course and caliber. Bowel: There is mild colonic diverticulosis without CT evidence of acute diverticulitis. Moderate colonic fecal retention is observed. There is no bowel obstruction. The appendix is nonvisualized. Peritoneum: There is trace perihepatic fluid as well as trace free fluid in the pelvis. No intraperitoneal free air is identified. There is a large fat- containing umbilical hernia. There is a large fat-containing ventral hernia in the upper abdomen seen on image #85. Lymphadenopathy: None. Pelvic viscera: The bladder, uterus, and adnexa are normal as imaged. Skeletal structures: The skeletal structures are osteopenic. No lytic or blastic lesions are seen. IMPRESSION: 1. Cholelithiasis with findings of acute cholecystitis. Surgical consultation is advised. 2. The liver is cirrhotic in morphology and heterogeneous in attenuation. 3. There is trace abdominopelvic ascites. 4. Marked cardiomegaly and trace right pleural effusion. 5. The adrenal glands appear hyperemic. This is nonspecific and can be seen in the setting of hypotension/shock. 6. Additional findings as above. Electronically signed by: Felice Galarza M.D. 05/07/2019 5:25 PM PG Care Time/CCT Total # of Minutes Spent Total Time Spent with Patient: Total time spent is greater than 50% in coordination of care (as documented) at patient's floor/unit and/or counseling patient:
[2019-05-08 10:32] LABS: INR 3.1 (0.9-1.1); Prothrombin Time 29.5 Seconds (9.0-12.0)
[2019-05-08] MEDS ORDERED: SODIUM CHLORIDE 0.9% 250 ML IV PRN (13:12)
[2019-05-08] MEDS ORDERED: PHYTONADIONE 5 MG TAB PO STA (13:19)
--- NOTE | 2019-05-08 13:51 | Anesthesiology Consultation ---
Date of Service May 08, 2019 Assessment & Plan (1) Encounter for pre-operative examination: Chart Review Chart Review: Acceptable Risk for Surgery and Patient seen in Pre Admission Testing Consults Requested cardiac (detailed history from her payroll analyst on 05/07/19) History Surgery Operation Date: 05/09/19 13:00 Proposed Procedures p Laparoscopic Cholecystectomy, Possible Cholangiogram - Vladimir Arana, DO, FACS Height/Weight Height: 5 ft 6 in Weight: 75.5 kg Allergies Allergy/AdvReac Type Severity Reaction Status Date / Time adhesive Allergy Mild rash Verified 05/07/19 14:26 codeine Allergy Mild . Verified 05/07/19 14:26 lorazepam Allergy Mild . Verified 05/07/19 14:26 Corticosteroids Allergy Unknown HYPOTENSION Verified 05/07/19 14:26 (Glucocorticoids) morphine Allergy Unknown mental Verified 05/07/19 14:26 status change NSAIDS (Non-Steroidal Allergy Unknown HYPOTENSION Verified 05/07/19 14:26 Anti-Inflamma azithromycin Allergy Unknown Unverified 05/07/19 14:26 [From Zithromax Z-Anton] zolpidem [From Ambien] Allergy Unknown Unverified 05/07/19 14:26 prednisone AdvReac Unknown LOW BP D/T Verified 05/07/19 14:26 FLUID SHIFT Anti-Depressents Allergy Unknown Uncoded 05/07/19 14:26 Medications Home Medications Medication Instructions Recorded Confirmed Last Taken empagliflozin [Jardiance] 10 mg PO QAM 05/07/19 05/07/19 Unknown metformin 500 mg PO UNKNOWN 05/07/19 05/07/19 Unknown potassium chloride 60 meq PO BID 05/07/19 05/07/19 Unknown torsemide 150 mg PO DAILY 05/07/19 05/07/19 Unknown warfarin 4 mg PO DIRECTED 05/07/19 05/07/19 Unknown warfarin 6 mg PO DIRECTED 05/07/19 05/07/19 Unknown Active Medications Generic Name Dose Route Start Last Admin Trade Name Freq PRN Reason Stop Dose Admin Acetaminophen 650 mg 05/08/19 08:17 05/08/19 08:24 Tylenol PO 06/07/19 08:16 650 mg Q6H PRN Administration Pain Potassium Chloride/Sodium Chloride 20 meq in 1,000 mls @ 100 mls/hr 05/07/19 19:03 05/08/19 05:14 Normal Saline W/20 Meq Kcl IV 05/08/19 17:57 100 mls/hr .Q10H MIKIE Administration Heparin Sodium/Dextrose 25,000 units in 500 mls @ 19 mls/hr 05/07/19 20:10 05/08/19 07:22 Heparin Sodium/Dextrose IV 06/06/19 20:09 950 units/hr .Q24H MIKIE 19 mls/hr Titration Protocol 950 UNITS/HR Piperacillin Sod/Tazobactam 115 mls @ 28.75 mls/hr 05/07/19 22:00 05/08/19 09:14 Sod 3.375 gm/ Dextrose IV 05/17/19 21:59 Infused Q8H MKIIE Infusion Protocol Insulin Aspart 0 units 05/08/19 06:00 05/08/19 12:10 Novolog Flexpen SC 06/07/19 05:59 Not Given Q6 MIKIE Ondansetron HCl 4 mg 05/07/19 20:10 05/08/19 08:24 Zofran IV 06/06/19 20:09 4 mg Q6H PRN Administration Nausea Past Medical History Medical History Atrial fibrillation Chronic cor pulmonale DM w/o complication type II Mitral stenosis Right-sided heart failure Tricuspid stenosis, acquired due to prior tricuspid valve repair [place] teeth removed Exercise / Class Metabolic Activity II 4-5 Yardwork/Stairs/Walk up hill Past Family History Family History Mother , 60s Gastric cancer Father , age 65 Lung cancer Past Surgical History Surgical History History of permanent cardiac pacemaker placement 2019 - placed due to complete heart block H/O mitral valve replacement 1985, initial MVR at [facility] ([place]); [address] [employer] Mechanical valve; INR goal 2.5-3.5 H/O tricuspid valve repair initial - 1985; repeat TV repair 2004 H/O tympanostomy History of bilateral tubal ligation History of cardiac radiofrequency ablation for a.fib - 2003 Past Anesthesia History No Hx of Anesthesia Complications and No Family Hx of Anesthesia Complications History of PONV No Hx of PONV and No Hx of Motion Sickness Social History Smoking Status: Former smoker tobacco type: cigarettes Do You Dip or Chew Tobacco: No Smoking End Date: 09/2018; smoked since age 21 Hx Alcohol Use: Yes Alcohol type: beer and wine alcohol intake frequency: holidays/special occasions only Hx Substance Use: No Review of Systems Constitutional: + weight loss; no fever and no sweats Eyes: no diplopia and no problem reported Respiratory: no cough and no dyspnea Cardiovascular: no chest pain, no chest pain with activity and no palpitations Gastrointestinal: + nausea; no abdominal pain Hematologic / Lymphatic: as per Subjective / HPI Physical Exam Vital Signs Last Vital Signs Temp 37.2 C 05/08/19 11:06 Pulse 70 05/08/19 11:06 Resp 18 05/08/19 11:06 BP 101/60 05/08/19 11:06 Pulse Ox 92 05/08/19 11:06 ENMT Mouth: no TMJ abnormality Thyromental Distance: > or= 3.5 Finger Breadths Mallampati Class: III Neck normal visual inspection and trachea midline Respiratory normal respiratory effort Auscultation: lungs clear to auscultation bilaterally Cardiovascular Rate/Rhythm: regular rate and regular rhythm Skin no rashes Neurologic moves all extremities Psychiatric Orientation: alert and oriented x 3 Testing Laboratory Results 05/08/19 03:50 05/08/19 03:50 PT 29.5 Seconds (9.0-12.0) H 05/08/19 10:10 INR 3.1 (0.9-1.1) H 05/08/19 10:10 APTT 72.3 Seconds (21.0-31.0) H* 05/08/19 06:25 Urine Color Yellow 05/07/19 15:55 Urine Appearance Clear (Clear) 05/07/19 15:55 Urine pH 6.0 (4.5-7.5) 05/07/19 15:55 Ur Specific [place] 1.014 (1.000-1.030) 05/07/19 15:55 Urine Protein Trace (Negative) H 05/07/19 15:55 Urine Glucose (UA) 2+ (Negative) H 05/07/19 15:55 Urine Ketones Negative (Negative) 05/07/19 15:55 Urine Nitrite Negative (Negative) 05/07/19 15:55 Ur Leukocyte Esterase Negative (Negative) 05/07/19 15:55 Urine WBC (Auto) 10-30 /hpf (0-5) H 05/07/19 15:55 Urine RBC (Auto) 5-10 /hpf (0-4) H 05/07/19 15:55 U Hyaline Cast (Auto) 1-5 /lpf (0-5) 05/07/19 15:55 U Epithel Cells (Auto) >30 /lpf (0-5) H 05/07/19 15:55 Urine Bacteria (Auto) 1+ (Negative) H 05/07/19 15:55 05/07/19 15:55 Urine Culture - Preliminary Urine,Clean Catch No growth - Less than 1,000 colonies/mL, Final report to follow. 05/08/19 05/08/19 12:06 06:28 POC Glucose 134 H 142 H Electrocardiogram Date: 05/08/19 Findings: + pertinent finding (Vpaced) Echocardiogram EF: 55% LV Function: normal Valvular Disease: + AI (moderate) and + pertinent finding (sclerotic tricuspid) right sided heart failure. moderate reduction
[2019-05-08 13:55] LABS: Partial Thromboplastin Time 135.3 Seconds (21.0-31.0)
[2019-05-08 15:51] LABS: Partial Thromboplastin Time 80.6 Seconds (21.0-31.0)
[2019-05-08 15:57] LABS: INR 2.8 (0.9-1.1); Prothrombin Time 26.3 Seconds (9.0-12.0)
--- NOTE | 2019-05-08 16:55 | Oncology Consultation ---
Date of Consultation May 08, 2019 Assessment & Plan (1) Cervical lymphadenopathy: I had a difficult time appreciating adenopathy in her neck and she actually felt that it was less prominent than before. She has no other signs or symptoms to suggest a lymphoproliferative disorder. Her CT A/P revealed no adenopathy or splenomegaly. At some point, imaging of her neck would be reasonable, but we could start with an ultrasound. This issue is probably unrelated to her cholecystitis and so a workup for it should wait until her acute issue is resolved. Present on Admission?: Yes (2) Anemia: Her anemia is thus far unexplained but is pretty severe. She denies any gross blood loss. She does report some mild chronic hematuria. Her kidneys and bladder appeared normal by CT, but I might consider checking urine cytology. She also appears to have cirrhosis, which is not a previously documented diagnosis. Chronic liver disease is a cause of anemia, though typically it is macrocytic. I would check her TSH, vitamin B12 and folate, iron, ferritin, and TIBC. Her CT and symptoms do not suggest any evidence of hemorrhage, so the issue causing her anemia is likely chronic. I would consider transfusion prior to surgery. Her counts may also be down in part due to marrow suppression from acute illness. Present on Admission?: Yes History of Present Illness Reason for Consultation: Cervical lymphadenopathy Attending Physician: Anthony Guerrero, History of Present Illness Ms. Hogan is a 59 year old woman with a history of rheumatic heart disease requiring two mitral valve replacements and an implanted pacemaker. She also has DM and right-sided congestive heart failure and is on warfarin chronically. She has been feeling unwell for the last week or so. She complains of fatigue, nausea, and vomiting over that time. However, she denied any upper abdominal pain. She had some low grade fevers on the day prior to presentation. In the ER, she had a CT A/P that showed cirrhotic liver morphology and hepatic steatosis. It also revealed cholelithiasis with findings of acute cholecystitis. She was also found to have a supratherapeutic INR and a hemoglobin of 9.7 that trended down to 8.5 today. She denies any obvious blood in her stool, though she has chronic scant hematuria that she attributes to the warfarin. She saw her PCP recently who appreciated some enlarged lymph nodes in her neck. She thinks they are reducing in size and I did not appreciate significant adenopathy today. She denies any recent URI symptoms, infectious contacts, fevers, night sweats, unexplained weight loss, or enlarged adenopathy elsewhere. Prior to 2 weeks ago, she felt totally fine. Allergies Allergy/AdvReac Type Severity Reaction Status Date / Time adhesive Allergy Mild rash Verified 05/07/19 14:26 codeine Allergy Mild . Verified 05/07/19 14:26 lorazepam Allergy Mild . Verified 05/07/19 14:26 Corticosteroids Allergy Unknown HYPOTENSION Verified 05/07/19 14:26 (Glucocorticoids) morphine Allergy Unknown mental Verified 05/07/19 14:26 status change NSAIDS (Non-Steroidal Allergy Unknown HYPOTENSION Verified 05/07/19 14:26 Anti-Inflamma azithromycin Allergy Unknown Unverified 05/07/19 14:26 [From Zithromax Z-Anton] zolpidem [From Ambien] Allergy Unknown Unverified 05/07/19 14:26 prednisone AdvReac Unknown LOW BP D/T Verified 05/07/19 14:26 FLUID SHIFT Anti-Depressents Allergy Unknown Uncoded 05/07/19 14:26 Home Medications Home Medications Medication Instructions Recorded Confirmed Type empagliflozin [Jardiance] 10 mg PO QAM 05/07/19 05/07/19 History metformin 500 mg PO UNKNOWN 05/07/19 05/07/19 History potassium chloride 60 meq PO BID 05/07/19 05/07/19 History torsemide 150 mg PO DAILY 05/07/19 05/07/19 History warfarin 4 mg PO DIRECTED 05/07/19 05/07/19 History warfarin 6 mg PO DIRECTED 05/07/19 05/07/19 History Patient History Medical History Atrial fibrillation Chronic cor pulmonale DM w/o complication type II Mitral stenosis Right-sided heart failure Tricuspid stenosis, acquired due to prior tricuspid valve repair [place] teeth removed Surgical History History of permanent cardiac pacemaker placement 2019 - placed due to complete heart block H/O mitral valve replacement 1985, initial MVR at [facility] ([place]); [address] [employer] Mechanical valve; INR goal 2.5-3.5 H/O tricuspid valve repair initial - 1985; repeat TV repair 2004 H/O tympanostomy History of bilateral tubal ligation History of cardiac radiofrequency ablation for a.fib - 2003 Family History Mother , 60s Gastric cancer Father , age 65 Lung cancer Social History Preferred Language: Turkish Communication Ability: Effective Proofer Prepress Required: No Beliefs That Will Affect Care: None marital status: Single marital status details: 1 son Current Living Situation: Alone Current Living Situation Comment: lives in [place] current occupational status: employed 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 Other Information That Helps Us Care for You: No Feels Safe at Home: Yes Safety Concerns: Feels Safe At This Time Smoking Status: Former smoker Tobacco Type: cigarettes ; packs per day: 0.5 ; Do You Dip or Chew Tobacco: No ; Smoking End Date: 09/2018; smoked since age 21 ; Hx Alcohol Use: Yes Alcohol type: beer and wine Alcohol Intake Frequency: Holidays/Special Occasions Hx Substance Use: No Review of Systems Constitutional: no fever, no fatigue and no weight loss Eyes: no worsening vision Ear, Nose, Mouth, Throat: no epistaxis and no bleeding gums Respiratory: no cough and no dyspnea Cardiovascular: no chest pain and no edema Gastrointestinal: + nausea; no abdominal pain, no hematemesis, no diarrhea/loose stools and no blood in stools Genitourinary: + hematuria; no dysuria Musculoskeletal: no back pain Integumentary: no rash and no bleeding lesions Neurologic: no localized weakness and no headache(s) Hematologic / Lymphatic: no easy bleeding and no night sweats Physical Exam Constitutional: well developed and comfortable; no acute distress Eyes: + anicteric sclerae and EOM intact bilaterally ENMT: external ear and nose normal, oropharynx normal Respiratory: normal respiratory effort, lungs clear to auscultation Cardiovascular: Rate/Rhythm: regular rate Heart Sounds: + murmur Gastrointestinal (Abdomen): Inspection/Auscultation: normal bowel sounds; abdomen not distended Percussion/Palpation: abdomen soft; abdomen nontender Skin: no rashes, warm and dry Psychiatric: A+Ox3, euthymic affect Lymphatic: She has some non-specific fullness in her neck, but I did not appreciate any large or tender lymph nodes. Results & Data Vital Signs (Past 12 Hours) Vital Signs Temp Pulse Pulse Resp BP Pulse Ox 05/08/19 15:26 38.2 C H 76 18 110/66 91 05/08/19 11:06 37.2 C 70 18 101/60 92 05/08/19 08:00 82 05/08/19 07:26 38.2 C H 70 17 109/68 92 Laboratory Results Abnormal lab results 05/07/19 05/07/19 05/08/19 Range/Units 14:05 14:07 03:50 RBC (4.2-5.4) M/uL Hgb (12.0-16.0) g/dL Hct (37-47) % RDW Std Deviation (36.4-46.3) fL RDW Coeff of [place] (11.5-14.5) % Lymph # (Auto) (1.2-3.4) K/uL PT 21.8 H (9.0-12.0) Seconds INR 2.3 H (0.9-1.1) APTT 137.0 H* (21.0-31.0) Seconds BUN (7-18) mg/dl Creatinine (0.6-1.2) mg/dl Glucose (70-99) mg/dl POC Glucose (70-99) Calcium (8.5-10.1) mg/dl Magnesium 2.6 H (1.8-2.4) mg/dl AST (15-37) U/L Lactate Dehydrogenase (84-246) U/L Albumin (3.4-5.0) gm/dl Crossmatch 05/08/19 05/08/19 05/08/19 Range/Units 03:50 03:50 03:50 RBC 2.65 L (4.2-5.4) M/uL Hgb 8.5 L (12.0-16.0) g/dL Hct 26.0 L (37-47) % RDW Std Deviation 53.8 H (36.4-46.3) fL RDW Coeff of [place] 15.0 H (11.5-14.5) % Lymph # (Auto) 0.45 L (1.2-3.4) K/uL PT (9.0-12.0) Seconds INR (0.9-1.1) APTT (21.0-31.0) Seconds BUN 25 H (7-18) mg/dl Creatinine 1.50 H (0.6-1.2) mg/dl Glucose 126 H (70-99) mg/dl POC Glucose (70-99) Calcium 7.6 L (8.5-10.1) mg/dl Magnesium (1.8-2.4) mg/dl AST 41 H (15-37) U/L Lactate Dehydrogenase 296 H (84-246) U/L Albumin 3.3 L (3.4-5.0) gm/dl Crossmatch 05/08/19 05/08/19 05/08/19 Range/Units 06:25 06:28 10:10 RBC (4.2-5.4) M/uL Hgb (12.0-16.0) g/dL Hct (37-47) % RDW Std Deviation (36.4-46.3) fL RDW Coeff of [place] (11.5-14.5) % Lymph # (Auto) (1.2-3.4) K/uL PT 29.5 H (9.0-12.0) Seconds INR 3.1 H (0.9-1.1) APTT 72.3 H* (21.0-31.0) Seconds BUN (7-18) mg/dl Creatinine (0.6-1.2) mg/dl Glucose (70-99) mg/dl POC Glucose 142 H (70-99) Calcium (8.5-10.1) mg/dl Magnesium (1.8-2.4) mg/dl AST (15-37) U/L Lactate Dehydrogenase (84-246) U/L Albumin (3.4-5.0) gm/dl Crossmatch 05/08/19 05/08/19 05/08/19 Range/Units 12:06 13:17 15:04 RBC (4.2-5.4) M/uL Hgb (12.0-16.0) g/dL Hct (37-47) % RDW Std Deviation (36.4-46.3) fL RDW Coeff of [place] (11.5-14.5) % Lymph # (Auto) (1.2-3.4) K/uL PT 26.3 H (9.0-12.0) Seconds INR 2.8 H (0.9-1.1) APTT 135.3 H* (21.0-31.0) Seconds BUN (7-18) mg/dl Creatinine (0.6-1.2) mg/dl Glucose (70-99) mg/dl POC Glucose 134 H (70-99) Calcium (8.5-10.1) mg/dl Magnesium (1.8-2.4) mg/dl AST (15-37) U/L Lactate Dehydrogenase (84-246) U/L Albumin (3.4-5.0) gm/dl Crossmatch 05/08/19 05/08/19 05/08/19 Range/Units 15:04 15:04 16:46 RBC (4.2-5.4) M/uL Hgb (12.0-16.0) g/dL Hct (37-47) % RDW Std Deviation (36.4-46.3) fL RDW Coeff of [place] (11.5-14.5) % Lymph # (Auto) (1.2-3.4) K/uL PT (9.0-12.0) Seconds INR (0.9-1.1) APTT 80.6 H* (21.0-31.0) Seconds BUN (7-18) mg/dl Creatinine (0.6-1.2) mg/dl Glucose (70-99) mg/dl POC Glucose 203 H (70-99) Calcium (8.5-10.1) mg/dl Magnesium (1.8-2.4) mg/dl AST (15-37) U/L Lactate Dehydrogenase (84-246) U/L Albumin (3.4-5.0) gm/dl Crossmatch See Detail CT A/P, 05/07/19: IMPRESSION: 1. Cholelithiasis with findings of acute cholecystitis. Surgical consultation is advised. 2. The liver is cirrhotic in morphology and heterogeneous in attenuation. 3. There is trace abdominopelvic ascites. 4. Marked cardiomegaly and trace right pleural effusion. 5. The adrenal glands appear hyperemic. This is nonspecific and can be seen in the setting of hypotension/shock. 6. Additional findings as above. (1) Anemia Anemia type: other cause Other causes of anemia: other cause, not classified Qualified Code(s): D64.89 - Other specified anemias
--- NOTE | 2019-05-08 19:02 | Hospitalist Progress Note ---
Date of Service May 08, 2019 Assessment & Plan (1) Acute cholecystitis: symptoms of nausea, right shoulder pain, no abdominal pain imaging consistent with cholecystitis plan for lap john tomorrow, want INR < 1.5 will give vitamin K today since INR not improving with just holding coumadin cardiology provided perioperative recommendations, appreciated WBC normal, spiking fevers that respond to Tylenol, vitals otherwise stable continue Zosyn IV NPO after midnight (2) Sepsis: 2nd to acute cholecystitis. no growth on blood cultures continue Zosyn (3) H/O mitral valve replacement: Initial MVR in 1985 with re-do in 2004. Carbomedics mechanical MVR. takes coumadin and INR goal is 2.5 to 3.5. Last echo in 09/2018 showed good MVR function and normal hemodynamics. Holding coumadin. continue heparin drip INR 3.1 then 2.8, will give vitamin K (4) Hypokalemia: Likely combination of high-dose diuretics and poor oral intake. Given 40meq of KCL in ER. I will give another 40meq KCL at time of admission, and then repeat 4-6 hours later after that another 20meq. K is 3.6 today will give 20mEq in gentle fluids overnight (5) History of permanent cardiac pacemaker placement: Implanted 2018 2nd to complete heart block. (6) Atrial fibrillation: Chronic/permanent. Had ablation procedure early . On chronic coumadin. rates controlled (7) Acute kidney injury: likely 2nd to dehydration & sepsis. gentle hydration & supportive care. Cr still high at 1.5 continue gentle fluids at 80cc/hr for one more bag (8) DM w/o complication type II: Hold metformin. Hold jardiance. Check BSGs ac/hs (or q6h while NPO). Novolog sliding scale for now. monitor for hypoglycemia (9) Cervical lymphadenopathy: no nodes felt today, since they resolved it could have been reactive d/w Dr. Romero, he will follow up in clinic, maybe consider US (10) Leukopenia: WBC normal today (11) Anemia: Earlier in 2019 her H/H were normal. Hb low at 8.5 will check ferritin, iron, folate, b12 levels d/w Dr. Romero, could be combination of cirrhosis, iron deficiency (12) Chronic cor pulmonale: as per echo dated 09/2018. gentle IV fluids in face of her right-sided CHF. formal consult with Dr Glass requested. preload dependent right heart failure if hypotensive in OR then use NeoSynephrine cautious diuretics post op (13) Erythrocyte casts present in urine: RBC casts are noted on microscopy today. She has trace blood and trace protein along with elevated Cr of 1.5. Hydrate and repeat BMP am. If elevated creatinine persists, and if RBC casts persist on urine micro, consider formal nephrology consultation to r/o GN. (14) H/O tricuspid valve repair: x 2. now with severe tricuspid stenosis by echo (09/2018). (15) DVT prophylaxis: Patient will be on heparin infusion. Subjective patient with no abdominal pain today, but continues to have nausea has right shoulder pain, symptoms made worse with drinking fluids discussed with general surgery, appreciate their input, plan for OR tomorrow, need to get INR down INR was 3.1 in the AM, down to 2.8 in the afternoon, plan for Vitamin K, on heparin drip discussed with Dr. Glass, appreciate his input, she will be intermediate risk for cardiovascular event discussed with Dr. Romero, no cervical adenopathy appreciated, could consider US as outpatient should work up anemia chart reviewed labs reviewed Review of Systems Review of Systems: All systems reviewed & are unremarkable except as noted in HPI & below Constitutional: + fatigue and + weakness Respiratory: no cough and no dyspnea Cardiovascular: no chest pain and no edema Gastrointestinal: + nausea; no abdominal pain, no vomiting, no constipation and no diarrhea/loose stools Genitourinary: no dysuria Physical Exam Constitutional: WD/WN, vitals as above Eyes: PERRL, conjunctivae normal, anicteric sclerae ENMT: external ear and nose normal, oropharynx normal Neck: trachea midline, no thyromegaly Respiratory: normal respiratory effort, lungs clear to auscultation Cardiovascular: RRR, no murmur, no edema (artificial valve sounds) Gastrointestinal (Abdomen): normal bowel sounds, soft, nontender, no hepatosplenomegaly Musculoskeletal: no cyanosis or clubbing, extremities motor strength 5/5 Skin: no rashes, warm and dry Neurologic: patellar DTR's 2+ bilat, sensation intact and PERRL, EOMI, accommodation nl, no face palsy, no dysarthria Psychiatric: A+Ox3, euthymic affect Lymphatic: no cervical or axillary lymphadenopathy Results & Data Vital Signs (Past 12 Hours) Vital Signs Temp Pulse Pulse Resp BP Pulse Ox 05/08/19 16:00 82 05/08/19 15:26 38.2 C H 76 18 110/66 91 05/08/19 11:06 37.2 C 70 18 101/60 92 05/08/19 08:00 82 05/08/19 07:26 38.2 C H 70 17 109/68 92 Laboratory Results Laboratory Results - last 24 hr 05/07/19 05/07/19 05/08/19 14:07 14:07 03:50 WBC RBC Hgb Hct MCV MCH MCHC RDW Std Deviation RDW Coeff of Dunia Plt Count MPV Immature Gran % (Auto) Neut % (Auto) Lymph % (Auto) [place] % (Auto) Eos % (Auto) Baso % (Auto) Immature Gran # (Auto) Neut # (Auto) Lymph # (Auto) [place] # (Auto) Eos # (Auto) Baso # (Auto) PT INR APTT 137.0 H* PTT Ratio 5.1 Sodium Potassium Chloride Carbon Dioxide Anion Gap BUN Creatinine Est Cr Clr Drug Dosing Est GFR ( Amer) Est GFR (Non-Af Amer) BUN/Creatinine Ratio Glucose POC Glucose Calcium Total Bilirubin AST ALT Alkaline Phosphatase Lactate Dehydrogenase Total Protein Albumin Globulin Albumin/Globulin Ratio Random Cortisol 30.29 Monoscreen Negative Blood Type Blood Type Recheck Antibody Screen Crossmatch 05/08/19 05/08/19 05/08/19 03:50 03:50 03:50 WBC 5.57 RBC 2.65 L Hgb 8.5 L Hct 26.0 L MCV 98.1 MCH 32.1 MCHC 32.7 RDW Std Deviation 53.8 H RDW Coeff of Dunia 15.0 H Plt Count 157 MPV 9.0 Immature Gran % (Auto) 0.2 Neut % (Auto) 85.8 Lymph % (Auto) 8.1 [place] % (Auto) 5.4 Eos % (Auto) 0.0 Baso % (Auto) 0.5 Immature Gran # (Auto) 0.01 Neut # (Auto) 4.78 Lymph # (Auto) 0.45 L [place] # (Auto) 0.30 Eos # (Auto) 0.00 Baso # (Auto) 0.03 PT INR APTT PTT Ratio Sodium 137 Potassium 3.6 D Chloride 105 Carbon Dioxide 24 Anion Gap 8.0 BUN 25 H Creatinine 1.50 H Est Cr Clr Drug Dosing 42.5 Est GFR ( Amer) 44.1 Est GFR (Non-Af Amer) 38.0 BUN/Creatinine Ratio 16.4 Glucose 126 H POC Glucose Calcium 7.6 L Total Bilirubin 0.9 AST 41 H ALT 30 Alkaline Phosphatase 109 Lactate Dehydrogenase 296 H Total Protein 6.6 D Albumin 3.3 L Globulin 3.3 Albumin/Globulin Ratio 1.0 Random Cortisol Monoscreen Blood Type Blood Type Recheck Antibody Screen Crossmatch 05/08/19 05/08/19 05/08/19 03:50 06:25 06:28 WBC RBC Hgb Hct MCV MCH MCHC RDW Std Deviation RDW Coeff of Dunia Plt Count MPV Immature Gran % (Auto) Neut % (Auto) Lymph % (Auto) [place] % (Auto) Eos % (Auto) Baso % (Auto) Immature Gran # (Auto) Neut # (Auto) Lymph # (Auto) [place] # (Auto) Eos # (Auto) Baso # (Auto) PT INR APTT 72.3 H* PTT Ratio 2.7 Sodium Potassium Chloride Carbon Dioxide Anion Gap BUN Creatinine Est Cr Clr Drug Dosing Est GFR ( Amer) Est GFR (Non-Af Amer) BUN/Creatinine Ratio Glucose POC Glucose 142 H Calcium Total Bilirubin AST ALT Alkaline Phosphatase Lactate Dehydrogenase Total Protein Albumin Globulin Albumin/Globulin Ratio Random Cortisol Monoscreen Blood Type Blood Type Recheck Pending Antibody Screen Crossmatch 05/08/19 05/08/19 05/08/19 10:10 12:06 13:17 WBC RBC Hgb Hct MCV MCH MCHC RDW Std Deviation RDW Coeff of Dunia Plt Count MPV Immature Gran % (Auto) Neut % (Auto) Lymph % (Auto) [place] % (Auto) Eos % (Auto) Baso % (Auto) Immature Gran # (Auto) Neut # (Auto) Lymph # (Auto) [place] # (Auto) Eos # (Auto) Baso # (Auto) PT 29.5 H INR 3.1 H APTT 135.3 H* PTT Ratio 5.0 Sodium Potassium Chloride Carbon Dioxide Anion Gap BUN Creatinine Est Cr Clr Drug Dosing Est GFR ( Amer) Est GFR (Non-Af Amer) BUN/Creatinine Ratio Glucose POC Glucose 134 H Calcium Total Bilirubin AST ALT Alkaline Phosphatase Lactate Dehydrogenase Total Protein Albumin Globulin Albumin/Globulin Ratio Random Cortisol Monoscreen Blood Type Blood Type Recheck Antibody Screen Crossmatch 05/08/19 05/08/19 05/08/19 15:04 15:04 15:04 WBC RBC Hgb Hct MCV MCH MCHC RDW Std Deviation RDW Coeff of Dunia Plt Count MPV Immature Gran % (Auto) Neut % (Auto) Lymph % (Auto) [place] % (Auto) Eos % (Auto) Baso % (Auto) Immature Gran # (Auto) Neut # (Auto) Lymph # (Auto) [place] # (Auto) Eos # (Auto) Baso # (Auto) PT 26.3 H INR 2.8 H APTT 80.6 H* PTT Ratio 3.0 Sodium Potassium Chloride Carbon Dioxide Anion Gap BUN Creatinine Est Cr Clr Drug Dosing Est GFR ( Amer) Est GFR (Non-Af Amer) BUN/Creatinine Ratio Glucose POC Glucose Calcium Total Bilirubin AST ALT Alkaline Phosphatase Lactate Dehydrogenase Total Protein Albumin Globulin Albumin/Globulin Ratio Random Cortisol Monoscreen Blood Type Pending Blood Type Recheck Antibody Screen Pending Crossmatch See Detail 05/08/19 16:46 WBC RBC Hgb Hct MCV MCH MCHC RDW Std Deviation RDW Coeff of Dunia Plt Count MPV Immature Gran % (Auto) Neut % (Auto) Lymph % (Auto) [place] % (Auto) Eos % (Auto) Baso % (Auto) Immature Gran # (Auto) Neut # (Auto) Lymph # (Auto) [place] # (Auto) Eos # (Auto) Baso # (Auto) PT INR APTT PTT Ratio Sodium Potassium Chloride Carbon Dioxide Anion Gap BUN Creatinine Est Cr Clr Drug Dosing Est GFR ( Amer) Est GFR (Non-Af Amer) BUN/Creatinine Ratio Glucose POC Glucose 203 H Calcium Total Bilirubin AST ALT Alkaline Phosphatase Lactate Dehydrogenase Total Protein Albumin Globulin Albumin/Globulin Ratio Random Cortisol Monoscreen Blood Type Blood Type Recheck Antibody Screen Crossmatch Medications Administered Current Inpatient Medications Acetaminophen (Tylenol) 650 mg PO Q6H PRN PRN Reason: Pain Stop: 06/07/19 08:16 Last Admin: 05/08/19 16:02 Dose: 650 mg Documented by: Dextrose (Dextrose 50%) 25 - 50 ml IV UD PRN; Protocol PRN Reason: Hypoglycemia Protocol Stop: 06/07/19 05:14 Glucagon (Glucagen) 1 mg IM UD PRN; Protocol PRN Reason: Hypoglycemia Protocol Stop: 06/07/19 05:14 Glucose (Glucose 40%) 15 - 30 gm PO UD PRN; Protocol PRN Reason: Hypoglycemia Protocol Stop: 06/07/19 05:14 Glucose (Dex4 Glucose) 4 - 8 tabs PO UD PRN; Protocol PRN Reason: Hypoglycemia Protocol Stop: 06/07/19 05:14 Heparin Sodium/Dextrose (Heparin Sodium/Dextrose) 25,000 units in 500 mls @ 15 mls/hr IV .Q24H MIKIE; Protocol Stop: 06/06/19 20:09 Last Titration: 05/08/19 16:03 Dose: 750 units/hr, 15 mls/hr Documented by: Piperacillin Sod/Tazobactam (Sod 3.375 gm/ Dextrose) 115 mls @ 28.75 mls/hr IV Q8H MIKIE; Protocol Stop: 05/17/19 21:59 Last Admin: 05/08/19 16:01 Dose: 28.8 mls/hr Documented by: Sodium Chloride (Nss) 250 mls @ 15 mls/hr IV .[id number] PRN PRN Reason: For Transfusion Stop: 05/08/19 23:59 Potassium Chloride/Sodium Chloride (Normal Saline W/20 Meq Kcl) 20 meq in 1,000 mls @ 80 mls/hr IV .[id number] MIKIE Stop: 05/09/19 07:29 Insulin Aspart (Novolog Flexpen) 0 units SC Q6 MIKIE Stop: 06/07/19 05:59 Last Admin: 05/08/19 17:53 Dose: 1 units Documented by: Miscellaneous (Carbohydrates For Hypoglycemia) 15 - 30 gm PO UD PRN PRN Reason: Hypoglycemia Treatment Stop: 06/07/19 05:14 Miscellaneous Information (Consult) 1 ea N/A UD PRN PRN Reason: Consult Stop: 06/06/19 20:09 Ondansetron HCl (Zofran) 4 mg IV Q6H PRN PRN Reason: Nausea Stop: 06/06/19 20:09 Last Admin: 05/08/19 16:02 Dose: 4 mg Documented by: PG Care Time/CCT Total # of Minutes Spent Total Time Spent with Patient: Total time spent is greater than 50% in coordination of care (as documented) at patient's floor/unit and/or counseling patient: (1) DM w/o complication type II Diabetes mellitus director long term care insulin use: without director long term care use Qualified Code(s): E11.9 - Type 2 diabetes mellitus without complications (2) Anemia Anemia type: other cause Other causes of anemia: other cause, not classified Qualified Code(s): D64.89 - Other specified anemias (3) Atrial fibrillation Atrial fibrillation type: permanent Qualified Code(s): I48.2 - Chronic atrial fibrillation (4) Leukopenia Leukopenia type: unspecified Qualified Code(s): D72.819 - Decreased white blood cell count, unspecified (5) Sepsis Acute renal failure type: unspecified Sepsis acute organ dysfunction status: with acute organ dysfunction Sepsis type: sepsis due to unspecified organism Severe sepsis acute organ dysfunction type: acute renal failure Severe sepsis shock status: without septic shock Qualified Code(s): A41.9 - Sepsis, unspecified organism; R65.20 - Severe sepsis without septic shock; N17.9 - Acute kidney failure, unspecified
[2019-05-08] MEDS ORDERED: NSS + 20MEQ KCL 20 MEQ/1,000 ML BAG IV SCH (19:30)
[2019-05-08 19:44] LABS: INR 3.4 (0.9-1.1); Prothrombin Time 32.1 Seconds (9.0-12.0)
[2019-05-08] MEDS: PHYTONADIONE 5 MG in SODIUM CHLORIDE 0.9% 50 ML IV ONE ×2 (20:16→20:29)
[2019-05-08] MEDS ORDERED: Nursing to Pharmacy Communication ONE ×2 (20:44→22:07)
[2019-05-08 22:27] LABS: Partial Thromboplastin Ratio 4.2
[2019-05-08 22:31] LABS: Partial Thromboplastin Time 114.3 Seconds (21.0-31.0)
[2019-05-09] MEDS: INSULIN ASPART 100 UNITS/ML 3 ML PEN SC SCH ×3 (00:08→11:56)
[2019-05-09] MEDS: ONDANSETRON INJ 2 MG/ML 2 ML VIAL IV PRN (04:33)
[2019-05-09 05:54] LABS: Basophils # (auto) 0.03 K/uL (0-0.2); Basophils % (auto) 0.5 %; Eosinophils # (auto) 0.01 K/uL (0-0.5); Eosinophils % (auto) 0.2 %; Hematocrit (blood only) 26.8 % (37-47); Hemoglobin 8.8 g/dL (12.0-16.0); Immature Granulocytes # (auto) 0.02 K/uL (0.00-0.02); Immature Granulocytes % (auto) 0.3 %; Lymphocytes # (auto) 0.54 K/uL (1.2-3.4); Lymphocytes % (auto) 8.2 %; Mean Corpuscular Hgb Conc 32.8 g/dL (32-36); Mean Corpuscular Volume 97.5 fL (80-100); Mean Platelet Volume 9.8 fL (7.4-10.4); Monocytes # (auto) 0.44 K/uL (0.11-0.59); Monocytes % (auto) 6.7 %; Neutrophils # (auto) 5.52 K/uL (1.4-6.5); Neutrophils % (auto) 84.1 %; Platelet Count 148 K/uL (130-400); RDW Coefficient of Variation 15.3 % (11.5-14.5); RDW Standard Deviation 54.6 fL (36.4-46.3); Red Blood Count 2.75 M/uL (4.2-5.4); White Blood Count 6.56 K/uL (4.8-10.8)
[2019-05-09 06:18] LABS: INR 1.9 (0.9-1.1); Partial Thromboplastin Ratio 2.4; Prothrombin Time 18.2 Seconds (9.0-12.0)
[2019-05-09] MEDS: PIPERACILLIN/TAZOBACTAM 3.375 GM in DEXTROSE 5% 100 ML IV SCH ×2 (06:20→14:51)
[2019-05-09 06:24] LABS: Partial Thromboplastin Time 64.7 Seconds (21.0-31.0)
[2019-05-09 06:27] LABS: Albumin Level 3.2 gm/dl (3.4-5.0); BUN Creatinine Ratio 21.4 (10-20); Calcium 8.2 mg/dl (8.5-10.1); Creatinine Clr Calc Pharmacy 45.8 ml/min; Est GFR (African American) 48.3; Est GFR (Non-African American) 41.7; Potassium 3.5 mmol/L (3.5-5.1)
[2019-05-09 06:33] LABS: Bilirubin Direct 0.5 mg/dl (0-0.2); Bilirubin,Total 1.1 mg/dl (0.2-1); Ferritin 60.1 ng/ml (8-388); Total Protein 6.8 gm/dl (6.4-8.2)
[2019-05-09] MEDS ORDERED: ACETAMINOPHEN 1000 MG/100 ML IV IV ONE (06:41)
[2019-05-09] MEDS: HEPARIN SODIUM/DEXTROSE 25,000 UNITS/500 ML BAG IV SCH (08:27)
[2019-05-09 09:08] LABS: Folate (Folic Acid) > 24.00 ng/ml (>5.38); Vitamin B12 > 2000 pg/ml (211-911)
[2019-05-09] MEDS ORDERED: FUROSEMIDE 20 MG in SYRINGE 0 ML IV ONE (09:20)
--- NOTE | 2019-05-09 09:20 | Cardiology Progress Note ---
Date of Service May 09, 2019 Subjective She is anxious this morning. She notes some mild shortness of breath she is edy re that her face is more swollen and she has some abdominal distention to this is very concerning for her. It also causes her much consternation given her long-standing history of heart failure. She denies any palpitations. She has any lightheadedness or dizziness. She does not appear short of breath lying flat. She remains very anxious about having surgery given her complex cardiac history Results & Data Vital Signs (Past 12 Hours) Vital Signs Temp Pulse Pulse Resp BP Pulse Ox 05/09/19 07:52 71 18 99/59 L 94 05/09/19 05:24 16 92 05/09/19 03:20 36.9 C 76 18 109/66 95 05/09/19 00:33 71 05/08/19 23:17 37.1 C 71 18 95/51 L 91 PHYSICAL EXAMINATION: GENERAL: She is awake, alert, oriented x3. She does look ill. She is very anxious to this morning HEENT: 2+ carotid upstrokes, no evidence of carotid bruits. Her hearing is normal. LUNGS: Clear to auscultation bilaterally. No rales, rhonchi or wheezing. HEART: First heart sound is accentuated with a crisp click of her mitral valve prosthesis. There is a 2/6 systolic ejection murmur which is early to mid peaking at the upper right sternal border. There is a holodiastolic murmur at the left sternal border. There is a prominent RV lift. ABDOMEN: Soft, mildly tender, nondistended. Decreased bowel EXTREMITIES: Trace bilateral lower extremity edema. PSYCHIATRIC: Affect appeared appropriate. Echocardiogram in September 2018, mildly dilated LV, normal LV function, EF 55%. The basal inferior wall is calcified and akinetic. Dilated right ventricle with moderately reduced RV function with a TAPSE of 1.0, marked biatrial enlargement, dilated IVC, sclerotic tricuspid aortic valve, moderate aortic insufficiency, 27 mm Carbomedics mechanical mitral valve replacement with normal hemodynamics, severely stenotic tricuspid valve repair with a mean pressure gradient of 15 mmHg and at least moderate tricuspid regurgitation. IMPRESSION AND PLAN: 1. Preoperative evaluation prior to cholecystectomy. 2. Complex past cardiac history with severe tricuspid stenosis status post redo repair with chronic right-sided heart failure. 3. Chronic atrial fibrillation. 4. Complete heart block status post Medtronic Micra pacemaker. 5. Mechanical mitral valve (Carbomedics). 6. As an outpatient, she requires high-dose diuretics and high-dose potassium to maintain her volume status. Her IV fluids have been discontinued. I will give her Lasix 40 mg prior to going to the operating room understanding that she will receive additional volume in the operating room. I think this will help some of her anxiety. Her creatinine is closer to her baseline. I reassured her that we should be able to get her through surgery at intermediate risk in the range of 5%. After the surgery we can adjust her diuretics to improve her volume status that she starts eating. As an outpatient although she is on high-dose torsemide she does have a good response to as needed Zaroxolyn when she needs it. With her diuretics we will have to watch her potassium as she has an issue with hypokalemia as an outpatient and requires large amounts of potassium on a regular basis. Although her outside records suggest she is taking 60 mEq twice daily she was actually taking 40 mg 3 times daily and when she takes her Zaroxolyn she increases it to 40 mg 4 times daily. Her pacemaker should be programmed VOO prior to the operating room and reprogram back post procedure. Her heparin should be started when it safe from a surgical standpoint with reinitiation of her Coumadin anticoagulation given her mitral valve replacement.
[2019-05-09] MEDS: POTASSIUM CHLORIDE / WTR 10 MEQ/100 ML PLCT IV SCH ×2 (10:16→11:20)
[2019-05-09 12:09] LABS: INR 1.5 (0.9-1.1); Partial Thromboplastin Ratio 1.4; Partial Thromboplastin Time 38.4 Seconds (21.0-31.0); Prothrombin Time 15.1 Seconds (9.0-12.0)
[2019-05-09] MEDS ORDERED: fentaNYL citrate 100 MCG/2 ML VIAL ONE (12:51)
[2019-05-09] MEDS ORDERED: ROCURONIUM BROMIDE 10 MG/ML 5 ML VIAL ONE (12:51)
[2019-05-09] MEDS ORDERED: LIDOCAINE HCL 2% 2 ML VIAL/AMP(20MG/ML) INFIL ONE (12:51)
[2019-05-09] MEDS ORDERED: PROPOFOL IV EMULSION 10 MG/ML 20 ML VIAL IV ONE (12:51)
[2019-05-09] MEDS ORDERED: ONDANSETRON INJ 2 MG/ML 2 ML VIAL ONE (12:51)
[2019-05-09] MEDS ORDERED: MIDAZOLAM HCL 1 MG/ML 2ML VIAL ONE (12:51)
[2019-05-09] MEDS ORDERED: SODIUM CHLORIDE 0.9% 250 ML IV PRN ×2 (13:18→13:28)
[2019-05-09] MEDS ORDERED: FUROSEMIDE 20 MG in SYRINGE 0 ML IV SCH (13:30)
--- NOTE | 2019-05-09 14:09 | Surgery Progress Note ---
Date of Service May 09, 2019 Assessment & Plan (1) Acute cholecystitis: 59-year-old female with cardiac history, anemia, and acute cholecystitis on CT. Discussed with anesthesia, we will transfuse her perioperatively. Her INR is 1.5 this afternoon, and her heparin has been held and her PTT is normalizing. Plan for laparoscopic cholecystectomy, possible cholangiogram The risk of the procedure were discussed to include but not limited to bleeding, infection, retained stone, bile leak, damage to surrounding structures including common bile duct, need for future or more extensive surgery, conversion open, failure to treat symptoms, need for blood transfusion, and the risk of anesth esia Transfused 2 units PRBCs perioperatively Continue on antibiotics I would recommend restarting heparin tomorrow morning after CBC Subjective 59-year-old female admitted with cholecystitis. Her fever curve is decreasing. She was seen by hematology and they did not appreciate much lymphadenopathy, we will defer work-up for now. She does have anemia that is unexplained, and she was Hemoccult positive. Physical Exam Constitutional: WD/WN, vitals as above Gastrointestinal (Abdomen): Percussion/Palpation: + abdomen tender (Minimal epigastric tenderness) and abdomen soft; no guarding, abdomen not rigid and no hepatosplenomegaly Results & Data Vital Signs (Past 12 Hours) Vital Signs Temp Pulse Pulse Resp BP BP Pulse Ox 05/09/19 14:03 37.3 C 73 18 117/71 92 05/09/19 12:23 37.5 C 84 20 116/70 95 05/09/19 08:30 74 05/09/19 07:52 71 18 99/59 L 94 05/09/19 05:24 16 92 05/09/19 03:20 36.9 C 76 18 109/66 95 Laboratory Results Laboratory Results - last 24 hr 05/08/19 05/08/19 05/08/19 03:50 15:04 15:04 WBC RBC Hgb Hct MCV MCH MCHC RDW Std Deviation RDW Coeff of Dunia Plt Count MPV Immature Gran % (Auto) Neut % (Auto) Lymph % (Auto) [place] % (Auto) Eos % (Auto) Baso % (Auto) Immature Gran # (Auto) Neut # (Auto) Lymph # (Auto) [place] # (Auto) Eos # (Auto) Baso # (Auto) PT 26.3 H INR 2.8 H APTT PTT Ratio Sodium Potassium Chloride Carbon Dioxide Anion Gap BUN Creatinine Est Cr Clr Drug Dosing Est GFR ( Amer) Est GFR (Non-Af Amer) BUN/Creatinine Ratio Glucose POC Glucose Calcium Iron TIBC Ferritin Total Bilirubin Direct Bilirubin AST ALT Alkaline Phosphatase Total Protein Albumin Vitamin B12 Folate Stool Occult Bld Scrn Blood Type O Positive Blood Type Recheck O Positive Antibody Screen POSITIVE A Antibody Identification Anti-K Antibody ID Comment Antigen Identification K Antigen - NEGATIVE Crossmatch See Detail 05/08/19 05/08/19 05/08/19 15:04 16:46 19:21 WBC RBC Hgb Hct MCV MCH MCHC RDW Std Deviation RDW Coeff of Dunia Plt Count MPV Immature Gran % (Auto) Neut % (Auto) Lymph % (Auto) [place] % (Auto) Eos % (Auto) Baso % (Auto) Immature Gran # (Auto) Neut # (Auto) Lymph # (Auto) [place] # (Auto) Eos # (Auto) Baso # (Auto) PT 32.1 H INR 3.4 H APTT 80.6 H* PTT Ratio 3.0 Sodium Potassium Chloride Carbon Dioxide Anion Gap BUN Creatinine Est Cr Clr Drug Dosing Est GFR ( Amer) Est GFR (Non-Af Amer) BUN/Creatinine Ratio Glucose POC Glucose 203 H Calcium Iron TIBC Ferritin Total Bilirubin Direct Bilirubin AST ALT Alkaline Phosphatase Total Protein Albumin Vitamin B12 Folate Stool Occult Bld Scrn Blood Type Blood Type Recheck Antibody Screen Antibody Identification Antibody ID Comment Antigen Identification Crossmatch 05/08/19 05/08/19 05/09/19 20:33 21:53 00:05 WBC RBC Hgb Hct MCV MCH MCHC RDW Std Deviation RDW Coeff of Dunia Plt Count MPV Immature Gran % (Auto) Neut % (Auto) Lymph % (Auto) [place] % (Auto) Eos % (Auto) Baso % (Auto) Immature Gran # (Auto) Neut # (Auto) Lymph # (Auto) [place] # (Auto) Eos # (Auto) Baso # (Auto) PT INR APTT 114.3 H* PTT Ratio 4.2 Sodium Potassium Chloride Carbon Dioxide Anion Gap BUN Creatinine Est Cr Clr Drug Dosing Est GFR ( Amer) Est GFR (Non-Af Amer) BUN/Creatinine Ratio Glucose POC Glucose 256 H 167 H Calcium Iron TIBC Ferritin Total Bilirubin Direct Bilirubin AST ALT Alkaline Phosphatase Total Protein Albumin Vitamin B12 Folate Stool Occult Bld Scrn Blood Type Blood Type Recheck Antibody Screen Antibody Identification Antibody ID Comment Antigen Identification Crossmatch 05/09/19 05/09/19 05/09/19 05:37 05:37 05:37 WBC 6.56 RBC 2.75 L Hgb 8.8 L Hct 26.8 L MCV 97.5 MCH 32.0 MCHC 32.8 RDW Std Deviation 54.6 H RDW Coeff of Dunia 15.3 H Plt Count 148 MPV 9.8 Immature Gran % (Auto) 0.3 Neut % (Auto) 84.1 Lymph % (Auto) 8.2 [place] % (Auto) 6.7 Eos % (Auto) 0.2 Baso % (Auto) 0.5 Immature Gran # (Auto) 0.02 Neut # (Auto) 5.52 Lymph # (Auto) 0.54 L [place] # (Auto) 0.44 Eos # (Auto) 0.01 Baso # (Auto) 0.03 PT INR APTT PTT Ratio Sodium 140 Potassium 3.5 Chloride 111 H Carbon Dioxide 21 Anion Gap 9.0 BUN 30 H Creatinine 1.39 H Est Cr Clr Drug Dosing 45.8 Est GFR ( Amer) 48.3 Est GFR (Non-Af Amer) 41.7 BUN/Creatinine Ratio 21.4 H Glucose 144 H POC Glucose Calcium 8.2 L Iron 19 L TIBC 391 Ferritin 60.1 Total Bilirubin 1.1 H Direct Bilirubin 0.5 H AST 47 H ALT 32 Alkaline Phosphatase 119 H Total Protein 6.8 Albumin 3.2 L Vitamin B12 > 2000 H Folate > 24.00 Stool Occult Bld Scrn Blood Type Blood Type Recheck Antibody Screen Antibody Identification Antibody ID Comment Antigen Identification Crossmatch 05/09/19 05/09/19 05/09/19 05:37 06:09 06:25 WBC RBC Hgb Hct MCV MCH MCHC RDW Std Deviation RDW Coeff of Dunia Plt Count MPV Immature Gran % (Auto) Neut % (Auto) Lymph % (Auto) [place] % (Auto) Eos % (Auto) Baso % (Auto) Immature Gran # (Auto) Neut # (Auto) Lymph # (Auto) [place] # (Auto) Eos # (Auto) Baso # (Auto) PT 18.2 H INR 1.9 H APTT 64.7 H* PTT Ratio 2.4 Sodium Potassium Chloride Carbon Dioxide Anion Gap BUN Creatinine Est Cr Clr Drug Dosing Est GFR ( Amer) Est GFR (Non-Af Amer) BUN/Creatinine Ratio Glucose POC Glucose 148 H Calcium Iron TIBC Ferritin Total Bilirubin Direct Bilirubin AST ALT Alkaline Phosphatase Total Protein Albumin Vitamin B12 Folate Stool Occult Bld Scrn Positive A Blood Type Blood Type Recheck Antibody Screen Antibody Identification Antibody ID Comment Antigen Identification Crossmatch 05/09/19 11:43 WBC RBC Hgb Hct MCV MCH MCHC RDW Std Deviation RDW Coeff of Dunia Plt Count MPV Immature Gran % (Auto) Neut % (Auto) Lymph % (Auto) [place] % (Auto) Eos % (Auto) Baso % (Auto) Immature Gran # (Auto) Neut # (Auto) Lymph # (Auto) [place] # (Auto) Eos # (Auto) Baso # (Auto) PT 15.1 H INR 1.5 H APTT 38.4 H PTT Ratio 1.4 Sodium Potassium Chloride Carbon Dioxide Anion Gap BUN Creatinine Est Cr Clr Drug Dosing Est GFR ( Amer) Est GFR (Non-Af Amer) BUN/Creatinine Ratio Glucose POC Glucose Calcium Iron TIBC Ferritin Total Bilirubin Direct Bilirubin AST ALT Alkaline Phosphatase Total Protein Albumin Vitamin B12 Folate Stool Occult Bld Scrn Blood Type Blood Type Recheck Antibody Screen Antibody Identification Antibody ID Comment Antigen Identification Crossmatch PG Care Time/CCT Total # of Minutes Spent Total Time Spent with Patient: Total time spent is greater than 50% in coordination of care (as documented) at patient's floor/unit and/or counseling patient:
[2019-05-09] MEDS ORDERED: BUPIVACAINE 0.5 % 5 MG/1 ML MPF 30ML VIAL ONE (14:30)
--- NOTE | 2019-05-09 15:13 | Anesthesiology Progress Note ---
Date of Service May 09, 2019 Subjective The patient has a complex cardiac history. The patient is currently stable. I sp henrry with Dr. Arana, and we agreed that due to her comorbidities the patient needed to be transferred to a tertiary care center to perform her surgery. The patient was made aware of the situation. I spoke with Dr. Guerrero, and we agreed to have the patient transferred for further care. Physical Exam Vital Signs: Last Vital Signs Temp 99.3 F 05/09/19 14:43 Pulse 72 05/09/19 14:43 Resp 20 05/09/19 14:43 BP 94/58 L 05/09/19 14:43 Pulse Ox 94 05/09/19 14:43 Results & Data Medications Administered Acetaminophen (Tylenol) 650 mg PO Q6H PRN PRN Reason: Pain Stop: 06/07/19 08:16 Last Admin: 05/08/19 21:39 Dose: 650 mg Documented by: [id number] Admin: 05/08/19 16:02 Dose: 650 mg Documented by: [id number] Admin: 05/08/19 08:24 Dose: 650 mg Documented by: [id number] Piperacillin Sod/Tazobactam (Sod 3.375 gm/ Dextrose) 115 mls @ 28.75 mls/hr IV Q8H MIKIE; Protocol Stop: 05/17/19 21:59 Last Admin: 05/09/19 14:51 Dose: Not Given Documented by: [id number] Infusion: 05/09/19 10:24 Dose: 0 mls/hr Documented by: [id number] Admin: 05/09/19 06:20 Dose: 28.8 mls/hr Documented by: [id number] Infusion: 05/09/19 01:15 Dose: 0 mls/hr Documented by: [id number] Admin: 05/08/19 21:39 Dose: 28.8 mls/hr Documented by: [id number] Infusion: 05/08/19 19:54 Dose: 0 mls/hr Documented by: [id number] Admin: 05/08/19 16:01 Dose: 28.8 mls/hr Documented by: [id number] Infusion: 05/08/19 09:14 Dose: 0 mls/hr Documented by: [id number] Admin: 05/08/19 05:12 Dose: 28.8 mls/hr Documented by: [id number] Infusion: 05/08/19 02:18 Dose: 0 mls/hr Documented by: [id number] Admin: 05/07/19 21:56 Dose: 28.8 mls/hr Documented by: [id number] Insulin Aspart (Novolog Flexpen) 0 units SC Q6 MIKIE Stop: 06/08/19 00:00 Last Admin: 05/09/19 11:56 Dose: Not Given Documented by: [id number] Cosigned by: [id number] Admin: 05/09/19 06:12 Dose: Not Given Documented by: [id number] Cosigned by: [id number] Admin: 05/09/19 00:08 Dose: 1 units Documented by: [id number] Cosigned by: [id number] Ondansetron HCl (Zofran) 4 mg IV Q6H PRN PRN Reason: Nausea Stop: 06/06/19 20:09 Last Admin: 05/09/19 04:33 Dose: 4 mg Documented by: [id number] Admin: 05/08/19 16:02 Dose: 4 mg Documented by: [id number] Admin: 05/08/19 08:24 Dose: 4 mg Documented by: [id number]
--- NOTE | 2019-05-09 15:27 | Surgery Progress Note ---
Date of Service May 09, 2019 Assessment & Plan (1) Acute cholecystitis: While in preop holding, the patient expressed concern that she was not able to receive the cardiac care that she may need in the perioperative state. Anesthesia also had concerns about general anesthesia in this patient given some of her significant cardiac history and recent anemia. After consultation with anesthesia and with the medicine team, it was decided that the patient would benefit from transfer to tertiary facility. This will be coordinated over the next 24 to 48 hours. I discussed this with the patient and she expressed understanding and agrees with the plan. She continue on antibiotics. Continue the heparin drip and hold anticoagulation. She can have clear liquids. Surgery will follow peripherally, please call with questions or concerns. Present on Admission?: Yes Results & Data Vital Signs (Past 12 Hours) Vital Signs Temp Pulse Pulse Resp BP BP Pulse Ox 05/09/19 15:17 70 18 101/53 L 91 05/09/19 15:00 36.8 C 71 20 90/50 L 95 05/09/19 14:43 37.4 C 72 20 94/58 L 94 05/09/19 14:20 38.1 C H 70 24 93/69 L 96 05/09/19 14:16 37.7 C H 70 16 103/54 L 91 05/09/19 14:04 37.7 C H 70 16 91/47 L 92 05/09/19 14:03 37.3 C 73 18 117/71 92 05/09/19 12:23 37.5 C 84 20 116/70 95 05/09/19 08:30 74 05/09/19 07:52 71 18 99/59 L 94 05/09/19 05:24 16 92 PG Care Time/CCT Total # of Minutes Spent Total Time Spent with Patient: Total time spent is greater than 50% in coordination of care (as documented) at patient's floor/unit and/or counseling patient:
[2019-05-09] MEDS ORDERED: HEPARIN SODIUM/DEXTROSE 25,000 UNITS/500 ML BAG IV SCH (15:30)
[2019-05-09 15:34] VITALS: TEMP 99; O2SAT 90
[2019-05-09] MEDS ORDERED: Nursing to Pharmacy Communication ONE (16:00)
[2019-05-09] MEDS ORDERED: INSULIN ASPART 100 UNITS/ML 3 ML PEN SC SCH (16:30)
[2019-05-09] MEDS: Heparin IV Standard *NO* Bolus IV SCH (16:47)
[2019-05-09 16:56] VITALS: BP 92/49; PULSE 70
--- NOTE | 2019-05-14 16:06 | Discharge Summary ---
Date of Service May 09, 2019 Admission HPI Per Admitting Provider 59yo female with history of rheumatic heart disease s/p mitral valve replacement x 2 (initially [employer] valve in the 1980s; then re-do with [employer] valve in 2004), pacemaker (implanted at [facility] 09/2018), T2DM, chronic coumadin use, and right-sided congestive heart failure who presents with nausea beginning earlier this month. The nausea then continued to persist over the last few weeks. She has had lack of appetite. Denies abdominal pain episodes. Had emesis about 1 week ago but otherwise no emesis. No diarrhea. of this week she stopped eating due to the above symptoms. On Wednesday she saw her PCP and she was told that perhaps her symptoms were from a viral gastroenteritis. Wednesday evening she began to have subjective fevers and chills. On Wednesday she slept most of the day and had severe fatigue. This am she felt very weak, had no appetite, fevers/chills persisted, etc and thus she came to the ER for evaluation. Denies night-sweats. Denies weight loss. She has just been "exhausted." Her last echo was in 09/2018 and EF was 55% based on her recollection. Coumadin schedule - 6mg M/W/, 4mg all other days. Principal Diagnosis Acute cholecystitis Discharge Exam Constitutional WD/WN, vitals as above Eyes PERRL, conjunctivae normal, anicteric sclerae ENMT external ear and nose normal, oropharynx normal Neck trachea midline, no thyromegaly Respiratory normal respiratory effort, lungs clear to auscultation Cardiovascular Rate/Rhythm: regular rate and regular rhythm Heart Sounds: normal S1 and normal S2 Vessels: no JVD Extremities: normal capillary refill and + edema (trace bilaterally) Gastrointestinal (Abdomen) normal bowel sounds, soft, nontender, no hepatosplenomegaly Musculoskeletal no cyanosis or clubbing, extremities motor strength 5/5 Skin no rashes, warm and dry Neurologic patellar DTR's 2+ bilat, sensation intact and PERRL, EOMI, accommodation nl, no face palsy, no dysarthria Psychiatric A+Ox3, euthymic affect Lymphatic no cervical or axillary lymphadenopathy Discharge Data Allergies Allergy/AdvReac Type Severity Reaction Status Date / Time adhesive Allergy Mild rash Verified 05/07/19 14:26 codeine Allergy Mild . Verified 05/07/19 14:26 lorazepam Allergy Mild . Verified 05/07/19 14:26 Corticosteroids Allergy Unknown HYPOTENSION Verified 05/07/19 14:26 (Glucocorticoids) morphine Allergy Unknown mental Verified 05/07/19 14:26 status change NSAIDS (Non-Steroidal Allergy Unknown HYPOTENSION Verified 05/07/19 14:26 Anti-Inflamma azithromycin Allergy Unknown Unverified 05/07/19 14:26 [From Zithromax Z-Anton] zolpidem [From Ambien] Allergy Unknown Unverified 05/07/19 14:26 prednisone AdvReac Unknown LOW BP D/T Verified 05/07/19 14:26 FLUID SHIFT Anti-Depressents Allergy Unknown Uncoded 05/07/19 14:26 Consultations 05/07/19 17:53 ED Decision to Admit Stat 05/07/19 20:10 Consult Cardiology Routine Consult General Surgery Routine 05/08/19 07:00 Consult Oncology Routine 05/08/19 10:06 Consult Anesthesiology Routine 05/09/19 16:21 Burn CD for patient Stat Procedures Performed Operation Date: 05/09/19 13:50 <No data on this case meets the specified criteria> Ordered Studies 05/07/19 14:04 US gallbladder Stat 05/07/19 16:19 CT abd pelvis IV con only Stat Hospital Course (1) Acute cholecystitis: symptoms of nausea, right shoulder pain, no abdominal pain imaging consistent with cholecystitis planned for lap john INR down to 1.5 cardiology provided perioperative recommendations, appreciated WBC normal, spiking fevers that respond to Tylenol, vitals otherwise stable continue Zosyn IV anesthesia and surgery felt that the patient should go to [facility] due to high risk case called [facility] and patient was accepted to surgical service, transferred in the evening (2) Sepsis: 2nd to acute cholecystitis. no growth on blood cultures no fever, vitals stable continue Zosyn (3) H/O mitral valve replacement: Initial MVR in 1985 with re-do in 2004. [employer] mechanical MVR. takes coumadin and INR goal is 2.5 to 3.5. Last echo in 09/2018 showed good MVR function and normal hemodynamics. continue on heparin drip vitamin K given, INR down to 1.5 (4) Hypokalemia: Likely combination of high-dose diuretics and poor oral intake. resolved with aggressive replacement (5) History of permanent cardiac pacemaker placement: Implanted 2018 2nd to complete heart block. (6) Atrial fibrillation: Chronic/permanent. Had ablation procedure early . On chronic coumadin. rates controlled (7) Acute kidney injury: likely 2nd to dehydration & sepsis. gentle hydration & supportive care. Cr down to 1.39 no further fluids given Lasix 40mg IV by cardiology on 05/09 (8) DM w/o complication type II: Hold metformin. Hold jardiance. Check BSGs ac/hs (or q6h while NPO). Novolog sliding scale for now. monitor for hypoglycemia (9) Cervical lymphadenopathy: no nodes felt today, since they resolved it could have been reactive d/w Dr. Romero, he will follow up in clinic, maybe consider US (10) Leukopenia: WBC normal today (11) Anemia: Earlier in 2019 her H/H were normal. Hb low at 8.5 iron low, ferritin normal transfusion of PRBC ordered by surgery, Hb was 9 on 05/09 Lasix ordered after unit given d/w Dr. Romero, could be combination of cirrhosis, iron deficiency further work up could be done outpatient or at [facility] (12) Chronic cor pulmonale: as per echo dated 09/2018. preload dependent right heart failure if hypotensive in OR then use NeoSynephrine cautious diuretics post op (13) H/O tricuspid valve repair: x 2. now with severe tricuspid stenosis by echo (09/2018). (14) DVT prophylaxis: Patient will be on heparin infusion. Total Time Total Time Spent Total Time Spent (In Minutes): 45 minutes Total Time Includes: Examination of the Patient, Discharge Planning, Medication Reconciliation and Communication With Other Providers (Dr. Arana, Dr. Carty at [facility]) Discharge Plan Discharge Items Patient Disposition: Transfer Acute Care Hospital Reason For Visit: ACUTE CHOLECYSTITIS, HYPOKALEMIA Discharge Diagnosis: Acute cholecystisis Chronic right sided heart failure s/p mechanical mitral valve Condition on Discharge: Fair Activity: Resume your previous activity Lifting: None Non-emergency contact: Primary Care Provider Call non-emergency contact if: your symptoms worsen, your pain is worsening and your wound has increased drainage Follow-up/Referrals: Vladimir Arana, , FACS [Physician] - (Please call to schedule follow up in clinic within 2 weeks. You may call the office sooner if you have any questions/concerns.) Kassidy Robertson, MAURO [Primary Care Provider] - Diet Comment: NPO after midnight Addtl Attending Provider Instructions: transfer to [facility] Pending Studies at Discharge: No Stand-Alone Forms: Call Back Authorization, My [facility] Skilled Items Patient informed of condition?: Yes DNR: No Discharge Level of Care: Other Communicable Disease: No Discharge Prognosis: Stable Lines: Peripheral IV Urinary Catheter: No Medications and DC Order Prescriptions: Continued warfarin 4 mg tablet 6 mg PO DIRECTED RF: 0 warfarin 4 mg tablet 4 mg PO DIRECTED RF: 0 potassium chloride 20 mEq tablet,ER particles/crystals 60 meq PO BID RF: 0 torsemide 100 mg tablet 150 mg PO DAILY RF: 0 metformin 500 mg tablet extended release 24 hr 500 mg PO UNKNOWN RF: 0 Jardiance 10 mg tablet 10 mg PO QAM RF: 0 Discharge Orders: Discharge Order (Routine); Ordered 05/09/19 Ordered By: Anthony Guerrero Admission Data Admit Date/Time: 05/07/19 19:03 Attending Provider: Anthony Guerrero Admit Provider: Baljinder Hung Primary Care Provider: Kassidy Robertson Other Providers: Baljinder Hung ; Sushant Glass ; Vladimir Arana ; Reg Joseph V ; Keith Solis Other Interventions: Discharge Summary Assessment (RN) Last Done: 05/09/19 16:51 DC Date/Time DO NOT enter until pt leaves facility: 05/09/19 18:00
== END 2019-05-09 18:00 | disposition short-term general hospital (02) | DRG 872 ==
LOC: ED 13:30 → 2S 19:03 → SUATTDRO 19:03 → 2S 19:30

== ENCOUNTER 2022-05-21 08:54 | Inpatient (IN) ==
[2022-05-21] MEDS ORDERED: PHYTONADIONE 5 MG in DEXTROSE 5% 50 ML IV ONE (09:29)
[2022-05-21 09:41] LABS: Hematocrit (blood only) 14.5 % (34.1-44.9); Hemoglobin 4.7 g/dl (12.0-16.0); Mean Corpuscular Hemoglobin 34.8 pg (25.0-34.0); Mean Corpuscular Hgb Conc 32.4 g/dL (32.0-36.0); Mean Corpuscular Volume 107.4 fL (80.0-100.0); Mean Platelet Volume 10.1 fL (9.4-12.3); Nucleated RBC # (auto) 0.03 K/uL (0-0); Nucleated RBC % (auto) 0.1 %; Platelet Count 399 K/uL (130-400); RDW Coefficient of Variation 21.9 % (11.5-14.5); RDW Standard Deviation 80.7 fL (36.4-46.3); Red Blood Count 1.35 M/uL (3.93-5.22); White Blood Count 24.43 K/ul (4.8-10.8)
[2022-05-21 09:47] LABS: Anisocytosis Present; Basophils # (auto) 0.07 K/uL (0-0.2); Basophils % (auto) 0.3 %; Eosinophils # (auto) 0.34 K/uL (0-0.50); Eosinophils % (auto) 1.4 %; Immature Granulocytes # (auto) 0.47 K/uL (0.00-0.02); Immature Granulocytes % (auto) 1.9 %; Lymphocytes % (auto) 3.7 %; Monocytes # (auto) 1.77 K/uL (0.24-0.82); Monocytes % (auto) 7.2 %; Neutrophils # (auto) 20.88 K/uL (1.4-6.5); Neutrophils % (auto) 85.5 %; Polychromasia 2+
[2022-05-21] MEDS ORDERED: PHYTONADIONE 10 MG in SODIUM CHLORIDE 0.9% 50 ML IV ONE (10:00)
[2022-05-21] MEDS ORDERED: SODIUM CHLORIDE 0.9% 250 ML IV PRN ×2 (10:02→20:23)
--- NOTE | 2022-05-21 10:11 | Emergency Department Note ---
History of Present Illness General Chief complaint: Abnormal Labs/Diagnostic Testing Stated complaint: abnormal labs Time Seen by Provider: 05/21/22 09:09 Source: patient Mode of arrival: EMS Limitations: no limitations History of Present Illness Provider complaint: Abnormal labs, sent from [facility] Maximum Pain Intensity: 4 This is a 62-year-old female sent by EMS from [facility] rehab facility due to concern for abnormal outpatient labs. Patient recently came to the facility to help with rehab following a recent left hip surgery at [facility]. Patient does use Coumadin due to history of atrial fibrillation and mechanical heart valve. She states she was bridged both before surgery and after surgery with use of Lovenox. I was contacted prior to her arrival by Dr. Guerrero at [facility]. He stated her hemoglobin was 4.5 and her INR yesterday was greater than 5. Her Lovenox and Coumadin were held yesterday and a repeat was pending for this morning. He stated she had bruising, hematuria, and even bleeding from around her fingernail beds. Patient denies any new trauma or change in activity, she has not been performing any aggressive physical therapy at this time. She felt her incisions have been healing well. She denies fevers or chills. She states when she noticed the hematuria yesterday she also had urgency, frequency, and felt she was likely developing a urinary tract infection which she has also had previously. She denies any chest pain, trouble breathing, headaches, or other back pain. Home Medications Medication Instructions Recorded Confirmed Type metolazone 2.5 mg tablet 0 mg PO 3XWK 04/06/22 05/21/22 History metoprolol succinate 25 mg 25 mg PO HS 04/06/22 05/21/22 History tablet,extended release 24 hr mirtazapine 15 mg tablet 15 mg PO HS 04/06/22 05/21/22 History multivitamin 1 tab PO DAILY 04/06/22 05/21/22 History torsemide 100 mg tablet 100 mg PO DAILY 04/06/22 05/21/22 History tramadol 50 mg tablet 50 mg PO Q6H PRN Pain 04/06/22 05/21/22 History warfarin 1 mg tablet (Jantoven) 1 mg PO .COMPLEX 05/01/22 05/21/22 History warfarin 1 mg tablet (Jantoven) 2 mg PO .COMPLEX 05/01/22 05/21/22 History acetaminophen 500 mg tablet 1,000 mg PO Q8H PRN FEVER/CHRISTIAN 05/21/22 05/21/22 History (Tylenol Extra Strength) bisacodyl 10 mg rectal suppository 10 mg AL DAILY PRN Constipation 05/21/22 05/21/22 History docusate sodium 100 mg capsule 100 mg PO BID 05/21/22 05/21/22 History enoxaparin 80 mg/0.8 mL 80 mg subcut DAILY 05/21/22 05/21/22 History subcutaneous syringe hydroxyzine HCl 25 mg tablet 25 mg PO Q6H PRN Anxiety 05/21/22 05/21/22 History insulin regular human 100 unit/mL 1 sliding scale dose subcut 05/21/22 05/21/22 History injection solution (Humulin R USEASDIRECTD Regular U-100 Insulin) lidocaine 5 % topical patch 1 patch topical DAILY 05/21/22 05/21/22 History magnesium hydroxide 2,400 mg/10 mL 30 ml PO DAILY PRN Constipation 05/21/22 05/21/22 History oral suspension (Milk Of Magnesia Concentrated) melatonin 3 mg tablet 6 mg PO HS PRN Sleep 05/21/22 05/21/22 History meloxicam 15 mg tablet 15 mg PO DAILY 05/21/22 05/21/22 History metformin 500 mg tablet,extended 500 mg PO BIDM 05/21/22 05/21/22 History release 24 hr metolazone 2.5 mg tablet 2.5 mg PO DAILY 05/21/22 05/21/22 History ondansetron 4 mg disintegrating 4 mg PO Q4H PRN NAUSEA/VOMITING 05/21/22 05/21/22 History tablet polyethylene glycol 3350 17 17 g PO QDL PRN Constipation 05/21/22 05/21/22 History gram/dose oral powder (Miralax) potassium chloride 20 mEq 40 meq PO DAILY 05/21/22 05/21/22 History tablet,extended release sennosides 8.6 mg tablet (senna) 17.2 mg PO DAILY 05/21/22 05/21/22 History sennosides 8.6 mg-docusate sodium 1 tab-cap PO QDL PRN Constipation 05/21/22 05/21/22 History 50 mg tablet (Senokot-S) spironolactone 25 mg tablet 25 mg PO BID 05/21/22 05/21/22 History tamsulosin 0.4 mg capsule 0.4 mg PO QDD 05/21/22 05/21/22 History Allergies Allergy/AdvReac Type Severity Reaction Status Date / Time mushroom Allergy Intermediate EYES Verified 05/21/22 13:33 SWELLED adhesive Allergy Mild rash Verified 05/21/22 13:33 Corticosteroids Allergy Unknown HYPOTENSION Verified 05/21/22 13:33 (Glucocorticoids) hydrocodone Allergy Unknown ON MED LIST Verified 05/21/22 13:33 levofloxacin [From Levaquin] Allergy Unknown ON MED LIST Verified 05/21/22 13:33 morphine Allergy Unknown HALLUCINATI Verified 05/21/22 13:33 ONS spironolactone Allergy Unknown Unknown Verified 05/21/22 13:33 Estrogens AdvReac Severe CHF Verified 05/21/22 13:33 lorazepam AdvReac Severe mental Verified 05/21/22 13:33 status change azithromycin AdvReac Intermediate Tachycardia Verified 05/21/22 13:33 [From Zithromax Z-Anton] /A-FIB codeine AdvReac Intermediate Shakiness Verified 05/21/22 13:33 doxycycline AdvReac Intermediate LEGS SWELL Verified 05/21/22 13:33 fluocinonide AdvReac Intermediate Tachycardia Verified 05/21/22 13:33 NSAIDS (Non-Steroidal AdvReac Intermediate HYPOTENSION Verified 05/21/22 13:33 Anti-Inflamma zolpidem [From Ambien] AdvReac Intermediate MENTAL Verified 05/21/22 13:33 STATUS CHANGE prednisone AdvReac Unknown LOW BP D/T Verified 05/21/22 13:33 FLUID SHIFT Anti-Depressents Allergy Unknown SEE COMMENT Uncoded 05/21/22 13:33 Past Med/Surg History Medical History (Updated 05/23/22 @ 19:08 by Gloria Gr, ) Acute exacerbation of chronic low back pain Anemia Atrial fibrillation Avascular necrosis of bone of left hip Chronic anticoagulation Chronic cor pulmonale Chronic left hip pain Chronic SI joint pain Depression Diverticular disease DM w/o complication type II high BSG in am, but normal A1C. Takes no medications. Elevated LDH Hernia X2 Leg length discrepancy Mitral stenosis Post traumatic stress disorder Right-sided heart failure Tricuspid stenosis, acquired due to prior tricuspid valve repair Upper respiratory infection currently on abx Surgical History (Updated 05/22/22 @ 14:48 by Manny Michaels DO) H/O mitral valve replacement 1985, initial MVR at [facility] [address] [facility] Mechanical valve; INR goal 2.5-3.5 H/O tricuspid valve repair initial - 1985; repeat TV repair 2004 H/O tympanostomy History of bilateral tubal ligation History of cardiac cath 1983, 2003, NO STENTS ROUTINE History of cardiac radiofrequency ablation for a.fib - 2003 History of endoscopic sinus surgery ATTEMPTED TO CAUTERIZE 05/14, UNABLE, PATIENT IN PAIN AND BLEEDING History of permanent cardiac pacemaker placement 2018 - placed due to complete heart block interrogated february 2020 History of placement of ear tubes History of tubal ligation S/P ORIF (open reduction internal fixation) fracture Left hip July 2019 Morgan teeth removed Family History Mother , 60s Gastric cancer Father , age 65 Lung cancer Social History Smoking Status: Former smoker packs per day: 0.5; Cigarettes Per Day: 10; Hx Alcohol Use: Yes Alcohol type: beer Hx Substance Use: No Preferred Language: Nepali Communication Ability: Effective Plate Mounter Required: No Beliefs That Will Affect Care: Spiritual marital status: marital status details: 1 son Current Living Situation: Alone Current Living Situation Comment: PATIENT DOES HAVE ANY FRIENDS/FAMILY. 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 Feels Safe at Home: Yes Safety Concerns: Feels Safe At This Time Assistive Devices: Walker and Wheelchair Review of Systems A total of 10 systems reviewed and were otherwise negative All systems reviewed & are unremarkable except as noted in HPI & below Physical Exam Vital Signs Vital Signs - 24 hr 05/21/22 09:02 05/21/22 11:02 05/21/22 15:25 Temperature 36.3 C L Temperature Source Oral Pulse Rate 71 Pulse Rate [Left Finger] 76 71 Pulse Rhythm [Left Finger] Regular Pulse Strength [Left Finger] Normal Respiratory Rate 20 18 15 Respiratory Effort / Characteristics Non-Labored Spontaneous Respiratory Depth Normal Blood Pressure 108/65 Blood Pressure [Left Arm] 107/67 113/44 L Blood Pressure Mean 79 Blood Pressure Mean [Left Arm] 80 67 Blood Pressure Position Sitting Pulse Oximetry 98 98 90 Oxygen Delivery Method Room Air Room Air Oxygen Flow Rate 2 Sepsis Recent Fever Within 48 Hours No Sepsis New/Unexplained Change in Mental Status No Sepsis Action Taken by Nursing No Action Required GENERAL: alert, pale appearing, well nourished, no distress, non-toxic EYE EXAM: normal conjunctiva, PERRL and EOM's grossly intact OROPHARYNX: no exudate, no erythema, lips, buccal mucosa, and tongue normal and mucous membranes are moist NECK: supple, no nuchal rigidity, no adenopathy, non-tender LUNGS: Clear to auscultation. Normal chest wall mechanics, no w/r/r HEART: no murmurs, S1 normal and S2 normal, paced ABDOMEN: abdomen soft, non-tender, normo-active bowel sounds, no masses, no rebound or guarding. BACK: Back is symmetrical on inspection and there is no deformity, no midline tenderness, no CVA tenderness. SKIN: no rashes, bruising noted scattered on forearms UPPER EXTREMITIES: upper extremities are grossly normal. FROM, nml pulses b/l. Bleeding from around nailbeds noted b/l. LOWER EXTREMITIES: 1+ b/l pitting edema. FROM, nml pulses b/l. Incisions healing, well appearing. NEURO EXAM: Normal sensorium, cranial nerves II-XII grossly intact, normal speech, no gross weakness of arms, no gross weakness of legs. Gross sensation intact. Course Course 1007: Discussed with Dr. Villegas. 1100: Discussed with Dr. Villegas again. 1140: Discussed with Dr. Mcgill. 1632: Call to blood bank again. Blood still not ready. 1645: Discussed with Dr. Villegas. Administered Medications Acetaminophen (Acetaminophen 500 Mg Tab) 1,000 mg PO Q8H PRN PRN Reason: FEVER/CHRISTIAN Stop: 06/20/22 18:36 Last Admin: 05/23/22 02:10 Dose: 1,000 mg Documented By: Admin: 05/22/22 00:53 Dose: 1,000 mg Documented By: RONAL Furosemide (Furosemide 40 Mg/4 Ml Vial) 40 mg IV BID MIKIE Stop: 06/21/22 20:59 Last Admin: 05/23/22 08:33 Dose: 40 mg Documented By: Admin: 05/22/22 20:32 Dose: 40 mg Documented By: MARYLU Hydroxyzine HCl (Hydroxyzine Hcl 25 Mg Tab) 25 mg PO Q6H PRN PRN Reason: Anxiety Stop: 06/20/22 18:36 Last Admin: 05/23/22 12:02 Dose: 25 mg Documented By: Admin: 05/23/22 02:11 Dose: 25 mg Documented By: MARYLU Heparin Sodium/Dextrose (Heparin Sodium/Dextrose) 25,000 units in 500 mls @ 16 mls/hr IV .Q24H MIKIE; Protocol Stop: 06/22/22 15:59 Last Admin: 05/23/22 16:36 Dose: 800 units/hr, 16 mls/hr Documented By: KOSTA Co-signed By: VETO Insulin Aspart (Insulin Aspart Per Unit) 0 units SC ACHS MIKIE Stop: 06/20/22 20:59 Last Admin: 05/23/22 17:09 Dose: Not Given Documented By: Admin: 05/23/22 12:38 Dose: Not Given Documented By: Admin: 05/23/22 08:27 Dose: 1 units Documented By: KOSTA Co-signed By: VETO Admin: 05/22/22 21:05 Dose: 2 units Documented By: MARYLU Co-signed By: CIARAN Admin: 05/22/22 17:19 Dose: 2 units Documented By: EAD Co-signed By: CRISTIAN Admin: 05/22/22 12:14 Dose: 2 units Documented By: EDA Co-signed By: [id number] Admin: 05/22/22 08:18 Dose: 2 units Documented By: EDA Co-signed By: [id number] Admin: 05/21/22 20:13 Dose: 2 units Documented By: RONAL Co-signed By: SILVESTRE Lidocaine (Lidocaine 5% 1 Patch) 1 patch TD DAILY MIKIE Stop: 06/21/22 08:59 Last Admin: 05/23/22 08:33 Dose: 1 patch Documented By: Admin: 05/22/22 09:30 Dose: 1 patch Documented By: EDA Melatonin (Melatonin 3 Mg Tab) 6 mg PO HS PRN PRN Reason: Sleep Stop: 06/20/22 18:36 Last Admin: 05/22/22 20:32 Dose: 6 mg Documented By: MARYLU Mirtazapine (Mirtazapine Tab 15 Mg Tab) 15 mg PO HS MIKIE Stop: 06/20/22 20:59 Last Admin: 05/22/22 20:32 Dose: 15 mg Documented By: Admin: 05/21/22 20:00 Dose: 15 mg Documented By: RONAL Miscellaneous (Remove Lidoderm Patch) 1 each N/A DAILY@2100 MIKIE Stop: 06/20/22 20:59 Last Admin: 05/22/22 20:32 Dose: 1 each Documented By: Admin: 05/21/22 19:06 Dose: 1 each Documented By: KENNEDI Ondansetron HCl (Ondansetron Inj 2 Mg/Ml 2 Ml Vial) 4 mg IV Q6H PRN PRN Reason: Nausea Stop: 06/20/22 18:36 Last Admin: 05/22/22 20:32 Dose: 4 mg Documented By: Admin: 05/22/22 14:15 Dose: 4 mg Documented By: Admin: 05/22/22 03:15 Dose: 4 mg Documented By: Admin: 05/21/22 21:14 Dose: 4 mg Documented By: RONAL Oxycodone HCl (Oxycodone Hcl Ir 5 Mg Tab (Immediate Release)) 5 mg PO Q6H PRN PRN Reason: Pain Stop: 06/05/22 15:38 Last Admin: 05/23/22 12:02 Dose: 5 mg Documented By: Admin: 05/22/22 22:53 Dose: 5 mg Documented By: Admin: 05/22/22 15:53 Dose: 5 mg Documented By: EDA Polyethylene Glycol (Polyethylene (Miralax) 17 Gm Pack) 17 gm PO DAILY MIKIE Stop: 06/21/22 15:44 Last Admin: 05/23/22 08:33 Dose: 17 gm Documented By: Admin: 05/22/22 15:59 Dose: 17 gm Documented By: EDA Senna/Docusate Sodium (Docusate Sodium/Senna 50/8.6mg Tab) 1 tab PO DAILY MIKIE Stop: 06/21/22 15:44 Last Admin: 05/23/22 08:33 Dose: 1 tab Documented By: Admin: 05/22/22 15:59 Dose: 1 tab Documented By: EDA Sodium Chloride (Sodium Chloride 0.65% Na Soln 45 Ml ([place])) 2 sprays NA PRN PRN PRN Reason: dry nose Stop: 06/22/22 11:31 Last Admin: 05/23/22 12:02 Dose: 2 sprays Documented By: KOSTA Sodium Zirconium Cyclosilicate (Sodium Zirconium Cyclosilicate 10 Gm Packet) 10 gm PO DAILY MIKIE Stop: 06/20/22 20:59 Last Admin: 05/23/22 08:34 Dose: 10 gm Documented By: Admin: 05/22/22 09:30 Dose: 10 gm Documented By: Admin: 05/21/22 19:58 Dose: 10 gm Documented By: RONAL Tamsulosin HCl (Tamsulosin Hcl 0.4 Mg Cap) 0.4 mg PO QDD [facility] Stop: 06/20/22 18:36 Last Admin: 05/23/22 17:09 Dose: 0.4 mg Documented By: Admin: 05/22/22 17:21 Dose: 0.4 mg Documented By: Admin: 05/21/22 20:00 Dose: 0.4 mg Documented By: RONAL Discontinued Medications Furosemide (Furosemide Inj 20 Mg/2 Ml Vial) 20 mg IV DAILY PRN PRN Reason: w/ blood transfusion Stop: 06/21/22 08:59 Last Admin: 05/22/22 01:02 Dose: 20 mg Documented By: RONAL Heparin Sodium/Dextrose (Heparin Iv Adult Wt-Based Low-Dose *No* Bolus Protocol) 1 each IV ONE ONE; Protocol Stop: 05/23/22 15:59 Last Admin: 05/23/22 17:09 Dose: Not Given Documented By: KOSTA Phytonadione 10 mg/ Sodium (Chloride) 51 mls @ 102 mls/hr IV NOW ONE Stop: 05/21/22 10:29 Last Infusion: 05/21/22 10:58 Dose: 0 mls/hr Documented By: Admin: 05/21/22 10:28 Dose: 102 mls/hr Documented By: INDRA Prothrombin Complex Concent ( (Human) 4,000 units/ Syringe) 160 mls @ 10 mls/min IV TODAY@1030 MIKIE; Protocol Stop: 05/21/22 10:45 Last Admin: 05/21/22 10:35 Dose: 10 mls/min Documented By: ISAI Calcium Gluconate 1,000 mg/ (Dextrose) 60 mls @ 240 mls/hr IV NOW ONE Stop: 05/21/22 14:59 Last Infusion: 05/21/22 16:07 Dose: 0 mls/hr Documented By: Admin: 05/21/22 15:51 Dose: 240 mls/hr Documented By: TAMICA Cefepime HCl (Maxipime) 2,000 mg in 20 mls @ 5 mls/min IV NOW STA; Protocol Stop: 05/21/22 14:51 Last Admin: 05/21/22 17:36 Dose: 5 mls/min Documented By: TAMICA Sodium Chloride (Nss 1000ml) 250 mls @ 999 mls/hr IV .Q16M ONE Stop: 05/21/22 15:13 Last Infusion: 05/21/22 16:11 Dose: 0 mls/hr Documented By: Admin: 05/21/22 15:52 Dose: 999 mls/hr Documented By: TAMICA Tranexamic Acid (Tranexamic Acid / 0.7% Nacl) 1,000 mg in 100 mls @ 600 mls/hr IV NOW STA Stop: 05/21/22 17:16 Last Infusion: 05/21/22 17:56 Dose: 0 mls/hr Documented By: Admin: 05/21/22 17:42 Dose: 600 mls/hr Documented By: TAMICA Cefepime HCl 1,000 mg/ Syringe 10 mls @ 5 mls/min IV Q12H MIKIE; Protocol Stop: 05/23/22 18:59 Last Admin: 05/22/22 08:11 Dose: 5 mls/min Documented By: Admin: 05/21/22 20:02 Dose: 5 mls/min Documented By: RONAL Calcium Gluconate 1,000 mg/ (Dextrose) 60 mls @ 240 mls/hr IV 2215 ONE Stop: 05/21/22 22:29 Last Infusion: 05/21/22 23:42 Dose: 0 mls/hr Documented By: Admin: 05/21/22 23:04 Dose: 240 mls/hr Documented By: RONAL Daptomycin 350 mg/ Syringe 7 mls @ 3.5 mls/min IV Q24H MIKIE; Protocol Stop: 06/01/22 15:59 Last Admin: 05/23/22 17:09 Dose: 3.5 mls/min Documented By: Admin: 05/22/22 16:12 Dose: 3.5 mls/min Documented By: EDA Ioversol (Ioversol 350 Mg 100ml Prefilled Syringe) 95 ml IV ONCE ONE Stop: 05/21/22 12:00 Last Admin: 05/21/22 11:59 Dose: 95 ml Documented By: MADELINE Metoclopramide HCl (Metoclopramide Hcl Inj 5 Mg/Ml 2 Ml Vial) 5 mg IV ONE ONE Stop: 05/22/22 16:08 Last Admin: 05/22/22 16:19 Dose: 5 mg Documented By: EDA Miscellaneous Information (Dc All Previously Ordered Diabetes Meds) 1 each N/A ONE ONE Stop: 05/21/22 18:38 Last Admin: 05/21/22 19:58 Dose: 1 each Documented By: RONAL Oxycodone HCl (Oxycodone Hcl Ir 5 Mg Tab (Immediate Release)) Confirm Administered Dose 5 mg .ROUTE .STK-MED ONE Stop: 05/22/22 15:53 Last Admin: 05/22/22 17:14 Dose: Not Given Documented By: EDA Tramadol HCl (Tramadol Hcl 50 Mg Tablet) 50 mg PO Q6H PRN PRN Reason: Pain Stop: 06/20/22 18:36 Last Admin: 05/22/22 12:11 Dose: 50 mg Documented By: Admin: 05/21/22 20:14 Dose: 50 mg Documented By: RONAL Critical Care Time Critical Care Time: Yes Total Critical Care Time: 65 Critical care of 65 min performed to assess and manage high likelihood of life- threatening anemia and coagulopathy, involving labs and imaging performed with assessment to evaluate anemia and coagulopathy diagnosis with frequent reassessment. This time includes bedside time, treatment discussions with patient/family/consultants, documentation time and excludes procedure time. Medical Decision Making Differential Diagnosis Differential Diagnosis includes but is not limited to dehydration, stroke, anemia, hypoglycemia, hyponatremia, hypernatremia, urinary tract infection, pneumonia, bronchitis, sepsis, gastroenteritis, additional abdominal pathology, metabolic abnormalities and infections. Medical Records Attestation: I reviewed the patient's medical records. Home Medications Current Medication List: was personally reviewed by me Laboratory Data Attestation: I reviewed the patient's lab results. Result diagrams: 05/23/22 12:45 05/23/22 05:16 Lab Results 05/21/22 05/21/22 05/21/22 Range/Units 09:13 09:13 09:13 WBC 24.43 H (4.8-10.8) K/ul RBC 1.35 L (3.93-5.22) M/uL Hgb 4.7 L* (12.0-16.0) g/dl Hct 14.5 L* (34.1-44.9) % MCV 107.4 H (80.0-100.0) fL MCH 34.8 H (25.0-34.0) pg MCHC 32.4 (32.0-36.0) g/dL RDW Std Deviation 80.7 H (36.4-46.3) fL RDW Coeff of Dunia 21.9 H (11.5-14.5) % Plt Count 399 (130-400) K/uL MPV 10.1 (9.4-12.3) fL Immature Gran % (Auto) 1.9 % Neut % (Auto) 85.5 % Lymph % (Auto) 3.7 % Troup % (Auto) 7.2 % Eos % (Auto) 1.4 % Baso % (Auto) 0.3 % Neut # (Auto) 20.88 H (1.4-6.5) K/uL Lymph # (Auto) 0.90 L (1.2-3.4) K/uL Troup # (Auto) 1.77 H (0.24-0.82) K/uL Eos # (Auto) 0.34 (0-0.50) K/uL Baso # (Auto) 0.07 (0-0.2) K/uL Immature Gran # (Auto) 0.47 H (0.00-0.02) K/uL Absolute Nucleated RBC 0.03 H (0-0) K/uL Nucleated RBC % (auto) 0.1 % Polychromasia 2+ Anisocytosis Present PT > 90.0 H (9.0-12.0) Seconds POC INR (0.9-1.1) INR > 9.6 H* (0.9-1.1) Sodium 124 L (136-145) mmol/L Potassium 6.1 H* (3.5-5.1) mmol/L Chloride 91 L (98-107) mmol/L Carbon Dioxide 25 (21-32) mmol/L Anion Gap 8 (3-11) BUN 73 H (6-23) mg/dl Creatinine 1.42 H (0.6-1.2) mg/dl Est Cr Clr Drug Dosing 40.5 ml/min Est GFR ( Amer) 46.1 ml/min Est GFR (Non-Af Amer) 39.8 ml/min BUN/Creatinine Ratio 51.4 H (10-20) Glucose 120 H (70-99(Fasting)) mg/dl Calcium 8.7 (8.5-10.1) mg/dl Magnesium 2.7 H (1.7-2.4) mg/dl Total Bilirubin 2.1 H (0.2-1.0) mg/dl AST 85 H (13-39) U/L ALT 38 (7-52) U/L Alkaline Phosphatase 170 H (34-104) U/L Troponin I High Sens 33.0 H D (0-14) pg/ml Total Protein 6.4 (6.0-8.3) gm/dl Albumin 3.4 (3.4-5.0) gm/dl Globulin 3.0 (2.5-4.0) gm/dl Albumin/Globulin Ratio 1.1 (0.9-2) Lipase 15 (11-82) U/L Blood Type Antibody Screen Antibody Identification Antibody ID Referred Antibody ID Comment Crossmatch 05/21/22 05/21/22 05/21/22 Range/Units 09:31 10:45 11:07 WBC (4.8-10.8) K/ul RBC (3.93-5.22) M/uL Hgb (12.0-16.0) g/dl Hct (34.1-44.9) % MCV (80.0-100.0) fL MCH (25.0-34.0) pg MCHC (32.0-36.0) g/dL RDW Std Deviation (36.4-46.3) fL RDW Coeff of Dunia (11.5-14.5) % Plt Count (130-400) K/uL MPV (9.4-12.3) fL Immature Gran % (Auto) % Neut % (Auto) % Lymph % (Auto) % [place] % (Auto) % Eos % (Auto) % Baso % (Auto) % Neut # (Auto) (1.4-6.5) K/uL Lymph # (Auto) (1.2-3.4) K/uL [place]oup # (Auto) (0.24-0.82) K/uL Eos # (Auto) (0-0.50) K/uL Baso # (Auto) (0-0.2) K/uL Immature Gran # (Auto) (0.00-0.02) K/uL Absolute Nucleated RBC (0-0) K/uL Nucleated RBC % (auto) % Polychromasia Anisocytosis PT (9.0-12.0) Seconds POC INR 1.3 H (0.9-1.1) INR (0.9-1.1) Sodium (136-145) mmol/L Potassium (3.5-5.1) mmol/L Chloride (98-107) mmol/L Carbon Dioxide (21-32) mmol/L Anion Gap (3-11) BUN (6-23) mg/dl Creatinine (0.6-1.2) mg/dl Est Cr Clr Drug Dosing ml/min Est GFR ( Amer) ml/min Est GFR (Non-Af Amer) ml/min BUN/Creatinine Ratio (10-20) Glucose (70-99(Fasting)) mg/dl Calcium (8.5-10.1) mg/dl Magnesium (1.7-2.4) mg/dl Total Bilirubin (0.2-1.0) mg/dl AST (13-39) U/L ALT (7-52) U/L Alkaline Phosphatase (34-104) U/L Troponin I High Sens (0-14) pg/ml Total Protein (6.0-8.3) gm/dl Albumin (3.4-5.0) gm/dl Globulin (2.5-4.0) gm/dl Albumin/Globulin Ratio (0.9-2) Lipase (11-82) U/L Blood Type O Positive Antibody Screen POSITIVE A Antibody Identification Anti-CW Antibody ID Referred Antibody ID Comment Cancelled Crossmatch See Detail 05/21/22 Range/Units 11:14 WBC (4.8-10.8) K/ul RBC (3.93-5.22) M/uL Hgb (12.0-16.0) g/dl Hct (34.1-44.9) % MCV (80.0-100.0) fL MCH (25.0-34.0) pg MCHC (32.0-36.0) g/dL RDW Std Deviation (36.4-46.3) fL RDW Coeff of Dunia (11.5-14.5) % Plt Count (130-400) K/uL MPV (9.4-12.3) fL Immature Gran % (Auto) % Neut % (Auto) % Lymph % (Auto) % [place] % (Auto) % Eos % (Auto) % Baso % (Auto) % Neut # (Auto) (1.4-6.5) K/uL Lymph # (Auto) (1.2-3.4) K/uL [place] # (Auto) (0.24-0.82) K/uL Eos # (Auto) (0-0.50) K/uL Baso # (Auto) (0-0.2) K/uL Immature Gran # (Auto) (0.00-0.02) K/uL Absolute Nucleated RBC (0-0) K/uL Nucleated RBC % (auto) % Polychromasia Anisocytosis PT (9.0-12.0) Seconds POC INR 1.5 H (0.9-1.1) INR (0.9-1.1) Sodium (136-145) mmol/L Potassium (3.5-5.1) mmol/L Chloride (98-107) mmol/L Carbon Dioxide (21-32) mmol/L Anion Gap (3-11) BUN (6-23) mg/dl Creatinine (0.6-1.2) mg/dl Est Cr Clr Drug Dosing ml/min Est GFR ( Amer) ml/min Est GFR (Non-Af Amer) ml/min BUN/Creatinine Ratio (10-20) Glucose (70-99(Fasting)) mg/dl Calcium (8.5-10.1) mg/dl Magnesium (1.7-2.4) mg/dl Total Bilirubin (0.2-1.0) mg/dl AST (13-39) U/L ALT (7-52) U/L Alkaline Phosphatase (34-104) U/L Troponin I High Sens (0-14) pg/ml Total Protein (6.0-8.3) gm/dl Albumin (3.4-5.0) gm/dl Globulin (2.5-4.0) gm/dl Albumin/Globulin Ratio (0.9-2) Lipase (11-82) U/L Blood Type Antibody Screen Antibody Identification Antibody ID Referred Antibody ID Comment Crossmatch Imaging Data Radiologist's Impression: Abdomen/Pelvis CT 05/21/22 09:[address] WITH IV CONTRAST CT DOSE: HISTORY: new anemia, elevated INR TECHNIQUE: Multiaxial CT images of the abdomen and pelvis were performed following the use of intravenous contrast. A dose lowering technique was utilized adhering to the principles of ALARA. COMPARISON STUDY: Abdomen and pelvis CT 05/07/2019. FINDINGS: Right posterior pleural thickening persists. The heart remains enlarged. There are poststernotomy changes and a mitral valve prosthesis again noted. Bilateral breast implants are partially visualized. No pneumoperitoneum. No pneumatosis. There is a left total hip arthroplasty. Partially visualized lobular mixed density collection within the left anterior thigh involving the quadriceps muscles and subcutaneous compartment. This measures up to 15 x 11 x 9 cm and demonstrates scattered hematocrit levels. Therefore, this is consistent with a large intramuscular/subcutaneous hematoma. There are skin drake along the lateral aspect of the left hip consistent with the recent postoperative change. There are severe body wall edema. Nodular contour to the liver consistent with cirrhosis. This remains unchanged. Trace perihepatic ascites is noted. The main portal vein is patent. Mild gallbladder wall thickening and adjacent fluid remains unchanged. This is likely chronic. There are few small gallstones. The pancreas, spleen, and adrenal glands unremarkable. The kidneys enhance normally. No hydronephrosis. No retroperitoneal lymphadenopathy. Mild bladder wall thickening, unchanged. The uterus and adnexa are unremarkable. Colonic diverticulosis. No evidence for acute diverticulitis. No bowel wall thickening or obstruction. No evidence for acute appendicitis. Hyperdense material within the distal appendix may represent a small amount of stool.. IMPRESSION: 1. A 15 x 11 x 9 mm intramuscular/subcutaneous hematoma within the left anterior thigh. 2. Recent left total hip arthroplasty. 3. Severe body wall edema. 4. Cholelithiasis. Mild gallbladder wall thickening remains unchanged and is likely chronic. A developing cholecystitis is considered less likely but not entirely excluded. Clinical correlation recommended. 5. Cardiomegaly. 6. Colonic diverticulosis. No evidence for acute diverticulitis. 7. Mild bladder wall thickening, unchanged. 8. Additional findings as described above. ACT 112: Negative or not required by law. Electronically signed by: Luis Schaeffer M.D. 05/21/2022 12:37 PM Chest X-Ray 05/21/22 09:42 XR chest 1V portable HISTORY: 62 years-old Female anemia acute anemia COMPARISON: Chest CT 03/09/2022 TECHNIQUE: AP view of the chest FINDINGS: Cardiac silhouette is enlarged. Prior median sternotomy with mitral valvular prosthesis. No pneumothorax. Trace pleural effusions with mild bibasilar opaci ties. Pulmonary vascular congestion. Degenerative changes of the shoulders and spine. The patient is rotated towards the left. Residual epicardial leads are again noted. The right lateral chest is partially excluded from the [id number]. Loop recorder device. IMPRESSION: 1. Cardiomegaly with pulmonary vascular congestion. 2. Trace pleural effusions with mild bibasilar opacities. ACT 112: Negative or not required by law. The above report was generated using voice recognition software. It may contain grammatical, syntax or spelling errors. Electronically signed by: Festus Blake M.D. 05/21/2022 11:[address] 05/21/22 09:[address] WITH CONTRAST CLINICAL HISTORY: new anemia, s/p surgery COMPARISON STUDY: Left hip radiographs December 11, 2019. TECHNIQUE: Axial images of the left hip were obtained following intravenous injection of 95 cc of Optiray 350. Sagittal and coronal reconstructions were viewed. Automated exposure control was utilized for the study. A dose lowering technique was utilized adhering to the principles of ALARA. FINDINGS: Please note that the abdomen and pelvis CT will be reported separately. Alignment of the left hip arthroplasty is anatomic. No periprosthetic fracture is noted. The hardware is intact. Anasarca is noted. There is left thigh subcutaneous stranding. Note is made of skin drake. There is a large multiloculated anterior left thigh fluid collection that measures at least 15 x 12 x 8 cm. This contains multiple hematocrit levels consistent with hematoma. This is within the anterior thigh musculature as well as the subcutaneous tissues. The inferior extent of this hematoma is not visualized on this examination. IMPRESSION: Status post left hip arthroplasty. Partially visualized large intramuscular/subcutaneous hematoma of the left thigh which measures at least 15 x 12 x 8 cm. ACT 112: Negative or not required by law. Electronically signed by: Campos Mora M.D. 05/21/2022 1:27 PM ECG Data Attestation: I personally reviewed and interpreted this ECG as follows: Indication: + weakness Rate (beats per minute): 73 Rhythm: + other ECG Intervals/blocks: + IVCD and + Prolonged QT ECG Winston: + Left axis deviation ECG ST segments: + Nonspecific ST abnormalities Additional Comments: paced MDM Narrative An order was placed for continuous cardiac monitoring. The monitor shows a rate of __74_ with ___ rhythm. This is a 62 yo female sent in from [facility] due to concern for abdominal labs. Patient with recent hip surgery, however was having increased difficulty at home after discharge and went to [facility] for rehab. Patient longstand coumadin use due to a.fib and valve replacement. VS stable despite significant anemia noted on outpatient labs. Labs drawn, type and screen sent, and patient sent for imaging. BLood consent signed and 3 units ordered. I did contact Dr. Villegas who I spoke with several times while patient was in the ER to discuss use of K-centra and also pt's transfusion due to multiple antibodies. [employer] sent to [facility] and they were doing some additional testing and will send blood back with research geologist once resting complete. This process took many hours, however VS remained stable. Patient given Vit K and Kcentra. Ultimately a thigh hematoma was noted. It is unclear if this is a complication from her recent surgery. Patient concerned this may have been from how she was transported at time of discharge as she felt she was roughly placed into a vehicle in an awkward and painful position for transportation home. Patient was made aware of all results. I do not suspect ongoing bleeding. No other evidence of occult bleeding on imaging. Mild troponin elevation likely demand related to the anemia. Hyponatremia and hyperkalemia noted. IVF deferred due to hx of CHF. I suspect some of this may be from her medications with acute volume loss. Patient complained of dysuria and urgency with hematuria. While this may be irritation from blood due to coagulopathy, given leukocytosis, UA collected and cefepime given empirically as a precaution. No prior positive culture for comparison. Urine checked at [facility] hadn't yet resulted. Case discussed with the hospitalist. UA still pending. Impression & Plan Anemia, Supratherapeutic INR, Hematoma, Hyperkalemia, Acute kidney injury, Elevated troponin, Hyponatremia, Hematuria Discharge Plan Visit Data Chief Complaint: Abnormal Labs/Diagnostic Testing Stated Complaint: abnormal labs ED Provider: Gloria Gr Discharge Problem: Anemia, Supratherapeutic INR, Hematoma, Hyperkalemia, Acute kidney injury, Elevated troponin, Hyponatremia, Hematuria Patient Disposition: Admitted As Inpatient Discharge Instructions Interventions: ED Discharge Assessment Last Done: 05/21/22 16:56
[2022-05-21 10:15] LABS: INR > 9.6 (0.9-1.1); Prothrombin Time > 90.0 Seconds (9.0-12.0)
[2022-05-21] MEDS ORDERED: PROTHROMBIN COMP CONC- KCENTRA 4,000 UNITS in SYRINGE 0 ML IV SCH (10:30)
[2022-05-21 10:33] LABS: Albumin Globulin Ratio 1.1 (0.9-2); Albumin Level 3.4 gm/dl (3.4-5.0); BUN Creatinine Ratio 51.4 (10-20); Bilirubin,Total 2.1 mg/dl (0.2-1.0); Calcium 8.7 mg/dl (8.5-10.1); Creatinine Clr Calc Pharmacy 40.5 ml/min; Est GFR (African American) 46.1 ml/min; Est GFR (Non-African American) 39.8 ml/min; Magnesium 2.7 mg/dl (1.7-2.4); Potassium 6.1 mmol/L (3.5-5.1); Total Protein 6.4 gm/dl (6.0-8.3)
--- NOTE | 2022-05-21 11:04 | XRay Report ---
XR chest 1V portable HISTORY: 62 years-old Female anemia acute anemia COMPARISON: Chest CT 03/09/2022 TECHNIQUE: AP view of the chest FINDINGS: Cardiac silhouette is enlarged. Prior median sternotomy with mitral valvular prosthesis. No pneumotho rax. Trace pleural effusions with mild bibasilar opacities. Pulmonary vascular congestion. Degenerati ve changes of the shoulders and spine. The patient is rotated towards the left. Residual epicardial l samir are again noted. The right lateral chest is partially excluded from the [id number]. Loop bunny rder device. IMPRESSION: 1. Cardiomegaly with pulmonary vascular congestion. 2. Trace pleural effusions with mild bibasilar opacities. ACT 112: Negative or not required by law. The above report was generated using voice recognition software. It may contain grammatical, syntax o r spelling errors. Electronically signed by: Festus Blake M.D. 05/21/2022 11:01 AM
[2022-05-21] MEDS ORDERED: IOVERSOL 350 MG 100mL Prefilled Syringe IV ONE (11:59)
--- NOTE | 2022-05-21 12:39 | CT Scan Report ---
ABDOMEN AND PELVIS CT WITH IV CONTRAST CT DOSE: HISTORY: new anemia, elevated INR TECHNIQUE: Multiaxial CT images of the abdomen and pelvis were performed following the use of intrave nous contrast. A dose lowering technique was utilized adhering to the principles of ALARA. COMPARISON STUDY: Abdomen and pelvis CT 05/07/2019. FINDINGS: Right posterior pleural thickening persists. The heart remains enlarged. There are postster notomy changes and a mitral valve prosthesis again noted. Bilateral breast implants are partially vis ualized. No pneumoperitoneum. No pneumatosis. There is a left total hip arthroplasty. Partially visua lized lobular mixed density collection within the left anterior thigh involving the quadriceps muscle s and subcutaneous compartment. This measures up to 15 x 11 x 9 cm and demonstrates scattered hematoc rit levels. Therefore, this is consistent with a large intramuscular/subcutaneous hematoma. There are skin drake along the lateral aspect of the left hip consistent with the recent postoperative [place] e. There are severe body wall edema. Nodular contour to the liver consistent with cirrhosis. This rem ains unchanged. Trace perihepatic ascites is noted. The main portal vein is patent. Mild gallbladder wall thickening and adjacent fluid remains unchanged. This is likely chronic. There are few small gal lstones. The pancreas, spleen, and adrenal glands unremarkable. The kidneys enhance normally. No hydr onephrosis. No retroperitoneal lymphadenopathy. Mild bladder wall thickening, unchanged. The uterus a nd adnexa are unremarkable. Colonic diverticulosis. No evidence for acute diverticulitis. No bowel wa ll thickening or obstruction. No evidence for acute appendicitis. Hyperdense material within the dist al appendix may represent a small amount of stool.. IMPRESSION: 1. A 15 x 11 x 9 mm intramuscular/subcutaneous hematoma within the left anterior thigh. 2. Recent left total hip arthroplasty. 3. Severe body wall edema. 4. Cholelithiasis. Mild gallbladder wall thickening remains unchanged and is likely chronic. A develo ping cholecystitis is considered less likely but not entirely excluded. Clinical correlation recommen ded. 5. Cardiomegaly. 6. Colonic diverticulosis. No evidence for acute diverticulitis. 7. Mild bladder wall thickening, unchanged. 8. Additional findings as described above. ACT 112: Negative or not required by law. Electronically signed by: Luis Schaeffer M.D. 05/21/2022 12:37 PM
--- NOTE | 2022-05-21 13:28 | CT Scan Report ---
LEFT HIP CT WITH CONTRAST CLINICAL HISTORY: new anemia, s/p surgery COMPARISON STUDY: Left hip radiographs December 11, 2019. TECHNIQUE: Axial images of the left hip were obtained following intravenous injection of 95 cc of Opt iray 350. Sagittal and coronal reconstructions were viewed. Automated exposure control was utilized f or the study. A dose lowering technique was utilized adhering to the principles of ALARA. FINDINGS: Please note that the abdomen and pelvis CT will be reported separately. Alignment of the le ft hip arthroplasty is anatomic. No periprosthetic fracture is noted. The hardware is intact. Anasarc a is noted. There is left thigh subcutaneous stranding. Note is made of skin drake. There is a larg e multiloculated anterior left thigh fluid collection that measures at least 15 x 12 x 8 cm. This con tains multiple hematocrit levels consistent with hematoma. This is within the anterior thigh musculat ure as well as the subcutaneous tissues. The inferior extent of this hematoma is not visualized on th is examination. IMPRESSION: Status post left hip arthroplasty. Partially visualized large intramuscular/subcutaneous hematoma of the left thigh which measures at least 15 x 12 x 8 cm. ACT 112: Negative or not required by law. Electronically signed by: Campos Mora M.D. 05/21/2022 1:27 PM
--- NOTE | 2022-05-21 14:35 | History & Physical Report ---
Date of Service May 21, 2022 Assessment & Plan (1) Anemia: Plan: - Hgb 4.7, INR > 9.6. Baseline Hgb 9-11, d/cd from [facility] last week post-op with Hgb ~7.5. - On Coumadin snf for valve replacements, has also been on Lovenox for bridging s/p hip repair. INR goal 2.5 3.5. - INR checked yesterday, was 5; Coumadin has been held since the , Lovenox held as of yesterday. - CT A/P: 10 x 11 x 9 mm intramuscular pain is hematoma left anterior thigh. - Received vitamin K and PCC, type and screen obtained with 3 units of PRBCs ordered. - Patient has several antibodies requiring her blood product be picked up in [place]. It is estimated that it will be several more hours until her blood will arrive. he is hemodynamically stable, however appears dry so in the meantime we will give her a small amount of IVF, 250 cc NS bolus ordered in ED. - Patient also to be transfused with 1 unit of O- blood while waiting blood transportation from [place]. - Dr. Villegas with anticoagulation clinic consulted, recommending Vitamin K and Kcentra. - Ortho surgery consulted regarding hematoma, at this point as there is no concern for infected hematoma or compartment syndrome, there is no need for surgical intervention. - H&H every 6 hours. (2) Supratherapeutic INR: Plan: - See above. (3) Hematoma of left thigh: Plan: - See above. (4) Hyperkalemia: Plan: - K 6.1, this is while taking 40 mEq potassium daily and on spironolactone 50 mg daily. Historically has low potassium. - Some peaked T waves on EKG, patient without any chest pain, palpitations. - 1 g of IV calcium ordered in ED, with 10 mg of Lokelma ordered for tonight at 9 PM. - If potassium normalizes by a.m., can defer on further Lokelma doses. - BMP every 4 hours. (5) Hyponatremia: Plan: - Sodium 124. - Patient is on torsemide 100 mg daily, spironolactone 50 mg daily, metolazone 2.5 mg daily. - Aggressive diuretic use in setting of severe right-sided heart failure likely the cause of low sodium. - Patient will be receiving multiple units of RBCs, therefore will defer on additional fluids for now beyond 250 cc NS bolus, in effort to not overload her. - 10 mg dose of Lokelma ordered for this evening. - We will continue to monitor BMP every 4 hours to see sodium response to IVF, blood products, Lokelma. (6) Right ventricular dysfunction: Plan: - History of rheumatic heart disease with MVR in 1985 and again in 2005. Also had tricuspid valve repair in 2005. - Most recent echo in our charts is from February 2020: EF 55%, with severe tricus pid stenosis, moderate tricuspid regurgitation, severely reduced RV function - Torsemide 100 mg daily, spironolactone 50 mg daily, metolazone 2.5 mg daily. - Dry weight 140 pounds. Appears clinically dry, however has bilateral lower extremity edema. - Hold diuretics for now given acute blood loss, however if evidence of volume overload after transfusion, will have to restart. - History of severe hypokalemia, however holding further potassium supplementation as potassium is 6.1. - Update echo while admitted. (7) Acute kidney injury: Plan: - Cr mildly elevated 1.42, baseline < 1.0, most likely due to acute blood loss 2/2 hematoma and tripe diuretic use for severe RHF. - Monitor on Q4h BMPs for now while managing hyperkalemia, hyponatremia. (8) Pacemaker: Plan: - H/o third-degree heart block, also h/o afib. - Ventricular paced rhythm. (9) H/O tricuspid valve repair: (10) DM2 (diabetes mellitus, type 2): Plan: - Patient denies history of, says she has occasional AM hyperglycemia but A1c has always been good and no current medications. - A1c 6.1 several weeks ago. - Takes metformin 500 mg twice daily. Holding this. (11) Elevated LFTs: Plan: - T bili 2 1, AST 85, alk phos 170. Alk phos has been elevated for several years, otherwise T bili and AST been elevated in the past several years, however never to this extent and have been normal as of recent. - Patient has documented history of cirrhosis on her chart, however adamantly denies this diagnosis and states her PCP just monitors her LFTs routinely. - Denies any alcohol use, personal history of fatty liver disease, hepatitis infection. - ? due to right-sided heart failure, as she has bilateral lower extremity edema, and CXR shows evidence of pulmonary vascular congestion. - For now, monitor on daily CMP. (12) Leukocytosis: Plan: - WBC 24 with left shift, no obvious source of infection, hematoma unlikely to be source, however patient did have hematuria and concern for UTI at [facility], and reports that they tested her urine and appeared infected. - While awaiting a urine analysis and culture here, we will empirically place on cefepime. - Despite acute blood loss anemia, patient is normotensive and not tachycardiac or hypoxic. She is not presenting as septic. - Monitor on daily labs. (13) Atrial fibrillation: Plan: - History of such, pacemaker placed now due to third-degree AV block. - Coumadin and metoprolol are currently on hold given severe anemia, but so far her BP has remained normotensive. - If patient remains stable, would recommend reintroducing metoprolol before diuretics. History of Present Illness Chief Complaint: abnormal H/H, INR on outpatient labs Primary Care Provider: MAURO Gonzales Dilma Hogan is a 62-year-old female with past medical history significant for right sided heart failure, tricuspid valve repair and mitral valve repair on warfarin, 3rd degree AV block s/p pacemaker is presenting today from [facility]. She recently had a left hip revision done at [facility] facility in [place], [place] on 05/08 and has since been d/c'd do [facility] for [facility]. She was previously on warfarin for her marco repairs and has been briding back to this with Lovenox. She was apparently discharged on 05/08 with a Hgb around 7.5. Her INR was checked yesterday and was reportedly 5. She had labs drawn again today to get baseline function and to monitor INR. Her hemoglobin was found to be 4.7 and INR > 9.6. She is not complaining of any chest pain, shortness of breath, weakness but does feel fatigued and notes that she did bump her left thigh and knee upon discharge from [facility] and has had mild pain there ever since. Additionally, her WBC is 24 with left shift, sodium 124, potassium 6.1, chloride 91. BUN 73, creatinine 1.42 (baseline <1.0). Magnesium slightly elevated 2.7. Her high-sensitivity troponin is 33. CT of the abdomen and pelvis reveals a 15 x 11 x 9 mm intramuscular/subcutaneous hematoma within the left anterior thigh, s/p recent left total hip arthroplasty. There is severe body wall edema. There is chronic mild gallbladder wall thickening which is unchanged from recent imaging. CXR shows pulmonary vascular congestion with trace pleural effusions. Hip CT again shows left thigh h ematoma. Since arrival, her vital signs have been within normal limits and stable. BP 107/67, HR 76, RR 18, afebrile, 90% on room air. In the ED, she received vitamin K and Kcentra. Blood type and screen has been achieved for blood transfusion. She has several antibodies, therefore blood products currently being transferred from [place]. Allergies Allergy/AdvReac Type Severity Reaction Status Date / Time mushroom Allergy Intermediate EYES Verified 05/21/22 13:33 SWELLED adhesive Allergy Mild rash Verified 05/21/22 13:33 Corticosteroids Allergy Unknown HYPOTENSION Verified 05/21/22 13:33 (Glucocorticoids) hydrocodone Allergy Unknown ON MED LIST Verified 05/21/22 13:33 levofloxacin [From Levaquin] Allergy Unknown ON MED LIST Verified 05/21/22 13:33 morphine Allergy Unknown HALLUCINATI Verified 05/21/22 13:33 ONS spironolactone Allergy Unknown Unknown Verified 05/21/22 13:33 Estrogens AdvReac Severe CHF Verified 05/21/22 13:33 lorazepam AdvReac Severe mental Verified 05/21/22 13:33 status change azithromycin AdvReac Intermediate Tachycardia Verified 05/21/22 13:33 [From Zithromax Z-Anton] /A-FIB codeine AdvReac Intermediate Shakiness Verified 05/21/22 13:33 doxycycline AdvReac Intermediate LEGS SWELL Verified 05/21/22 13:33 fluocinonide AdvReac Intermediate Tachycardia Verified 05/21/22 13:33 NSAIDS (Non-Steroidal AdvReac Intermediate HYPOTENSION Verified 05/21/22 13:33 Anti-Inflamma zolpidem [From Ambien] AdvReac Intermediate MENTAL Verified 05/21/22 13:33 STATUS CHANGE prednisone AdvReac Unknown LOW BP D/T Verified 05/21/22 13:33 FLUID SHIFT Anti-Depressents Allergy Unknown SEE COMMENT Uncoded 05/21/22 13:33 Home Medications Medication Instructions Recorded Confirmed Type metolazone 2.5 mg tablet 0 mg PO [id number] 08/29/22 10/13/22 History metoprolol succinate 25 mg 25 mg PO HS 04/06/22 05/21/22 History tablet,extended release 24 hr mirtazapine 15 mg tablet 15 mg PO HS 04/06/22 05/21/22 History multivitamin 1 tab PO DAILY 04/06/22 05/21/22 History torsemide 100 mg tablet 100 mg PO DAILY 04/06/22 05/21/22 History tramadol 50 mg tablet 50 mg PO Q6H PRN Pain 04/06/22 05/21/22 History warfarin 1 mg tablet (Jantoven) 1 mg PO .COMPLEX 05/01/22 05/21/22 History warfarin 1 mg tablet (Jantoven) 2 mg PO .COMPLEX 05/01/22 05/21/22 History acetaminophen 500 mg tablet 1,000 mg PO Q8H PRN FEVER/CHRISTIAN 05/21/22 05/21/22 History (Tylenol Extra Strength) bisacodyl 10 mg rectal suppository 10 mg MO DAILY PRN Constipation 05/21/22 05/21/22 History docusate sodium 100 mg capsule 100 mg PO BID 05/21/22 05/21/22 History enoxaparin 80 mg/0.8 mL 80 mg subcut DAILY 05/21/22 05/21/22 History subcutaneous syringe hydroxyzine HCl 25 mg tablet 25 mg PO Q6H PRN Anxiety 05/21/22 05/21/22 History insulin regular human 100 unit/mL 1 sliding scale dose subcut 05/21/22 05/21/22 History injection solution (Humulin R USEASDIRECTD Regular U-100 Insulin) lidocaine 5 % topical patch 1 patch topical DAILY 05/21/22 05/21/22 History magnesium hydroxide 2,400 mg/10 mL 30 ml PO DAILY PRN Constipation 05/21/22 05/21/22 History oral suspension (Milk Of Magnesia Concentrated) melatonin 3 mg tablet 6 mg PO HS PRN Sleep 05/21/22 05/21/22 History meloxicam 15 mg tablet 15 mg PO DAILY 05/21/22 05/21/22 History metformin 500 mg tablet,extended 500 mg PO BIDM 05/21/22 05/21/22 History release 24 hr metolazone 2.5 mg tablet 2.5 mg PO DAILY 05/21/22 05/21/22 History ondansetron 4 mg disintegrating 4 mg PO Q4H PRN NAUSEA/VOMITING 05/21/22 05/21/22 History tablet polyethylene glycol 3350 17 17 g PO QDL PRN Constipation 05/21/22 05/21/22 History gram/dose oral powder (Miralax) potassium chloride 20 mEq 40 meq PO DAILY 05/21/22 05/21/22 History tablet,extended release sennosides 8.6 mg tablet (senna) 17.2 mg PO DAILY 05/21/22 05/21/22 History sennosides 8.6 mg-docusate sodium 1 tab-cap PO QDL PRN Constipation 05/21/22 05/21/22 History 50 mg tablet (Senokot-S) spironolactone 25 mg tablet 25 mg PO BID 05/21/22 05/21/22 History tamsulosin 0.4 mg capsule 0.4 mg PO QDD 05/21/22 05/21/22 History Past Med/Surg History Medical History (Updated 05/21/22 @ 16:37 by Laly Peters PA-C) Acute exacerbation of chronic low back pain Anemia Atrial fibrillation Avascular necrosis of bone of left hip Chronic anticoagulation Chronic cor pulmonale Chronic left hip pain Chronic SI joint pain Depression Diverticular disease DM w/o complication type II high BSG in am, but normal A1C. Takes no medications. Elevated LDH Hernia X2 Leg length discrepancy Mitral stenosis Post traumatic stress disorder Right-sided heart failure Tricuspid stenosis, acquired due to prior tricuspid valve repair Upper respiratory infection currently on abx Surgical History H/O mitral valve replacement 1985, initial MVR at [facility] [address] [facility] Mechanical valve; INR goal 2.5-3.5 H/O tricuspid valve repair initial - 1985; repeat TV repair 2004 H/O tympanostomy History of bilateral tubal ligation History of cardiac cath 1983, 2003, NO STENTS ROUTINE History of cardiac radiofrequency ablation for a.fib - 2003 History of endoscopic sinus surgery ATTEMPTED TO CAUTERIZE 05/14, UNABLE, PATIENT IN PAIN AND BLEEDING History of permanent cardiac pacemaker placement 2019 - placed due to complete heart block interrogated february 2020 History of placement of ear tubes History of tubal ligation S/P ORIF (open reduction internal fixation) fracture Left hip July 2019 Ozan teeth removed Family History Mother , 60s Gastric cancer Father , age 65 Lung cancer Social History Smoking Status: Never smoker packs per day: 0.5; Cigarettes Per Day: 10; Hx Alcohol Use: Yes Alcohol type: beer Hx Substance Use: No Preferred Language: Gabonese Communication Ability: Effective Lead Consultant Required: No Beliefs That Will Affect Care: None marital status: Single marital status details: 1 son Current Living Situation: Alone Current Living Situation Comment: PATIENT DOES HAVE ANY FRIENDS/FAMILY. 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 Feels Safe at Home: Yes Assistive Devices: Glasses Review of Systems Review of Systems: Constitutional: fatigue, weakness over the last few days; No fever/chills, myalgias, anorexia, night sweats Eyes: No diplopia, no worsening or blurred vision ENT: normal hearing, no trouble swallowing Respiratory: No cough, sputum, dyspnea at rest or on exertion Cardiovascular: No chest pain, tightness or palpitations Abdomen: No pain, nausea, vomiting, diarrhea or constipation : hematuria on one occasion yesterday; no dysuria, increased urgency/frequency, urinary retention Musculoskeletal: left hip/thigh/knee pain, b/l lower extremity swelling; No other joint pain or calf pain Neurologic: No weakness, numbness/tingling, or balance problems Psychiatric: No anxiety or depression Skin: No rash or itch Physical Exam Physical Exam: General: awake, alert, no apparent distress Head: Normocephalic, atraumatic ENT: PERRL, EOMI, no pharyngeal exudate, mucous membranes moist Chest: Clear to auscultation, on room air, no adventitious breath sounds Cardiac: Regular rate and rhythm, no murmur, no JVD, normal peripheral pulses, good capillary refill Abdominal: NABS x 4 quadrants, soft, nontender to palpation, no rebound, guarding or tenderness Extremities: 3+ b/l LE edema; left anterior thigh feels tense but nontender to paplation; Normal inspection, no erythema, calfs nontender to palpation Psych: Normal mood and affect Neuro: AAO x 3, strength intact bilaterally and rated 5/5, no motor deficits, speech is clear, no peripheral sensory deficits Skin: no rash or erythema Results & Data Results & Data ([facility]) Vital Signs (Past 12 Hours) Vital Signs Temp Pulse Pulse Resp BP BP Pulse Ox 05/21/22 11:02 76 18 107/67 98 05/21/22 09:02 36.3 C L 71 20 108/65 98 O2 Del Method 05/21/22 11:02 05/21/22 09:02 Room Air Laboratory Results Abnormal lab results 05/21/22 05/21/22 05/21/22 Range/Units 09:13 09:13 09:13 WBC 24.43 H (4.8-10.8) K/ul RBC 1.35 L (3.93-5.22) M/uL Hgb 4.7 L* (12.0-16.0) g/dl Hct 14.5 L* (34.1-44.9) % MCV 107.4 H (80.0-100.0) fL MCH 34.8 H (25.0-34.0) pg RDW Std Deviation 80.7 H (36.4-46.3) fL RDW Coeff of Dunia 21.9 H (11.5-14.5) % Neut # (Auto) 20.88 H (1.4-6.5) K/uL Lymph # (Auto) 0.90 L (1.2-3.4) K/uL Travis # (Auto) 1.77 H (0.24-0.82) K/uL Immature Gran # (Auto) 0.47 H (0.00-0.02) K/uL Absolute Nucleated RBC 0.03 H (0-0) K/uL PT > 90.0 H (9.0-12.0) Seconds POC INR (0.9-1.1) INR > 9.6 H* (0.9-1.1) Sodium 124 L (136-145) mmol/L Potassium 6.1 H* (3.5-5.1) mmol/L Chloride 91 L (98-107) mmol/L BUN 73 H (6-23) mg/dl Creatinine 1.42 H (0.6-1.2) mg/dl BUN/Creatinine Ratio 51.4 H (10-20) Glucose 120 H (70-99(Fasting)) mg/dl Magnesium 2.7 H (1.7-2.4) mg/dl Total Bilirubin 2.1 H (0.2-1.0) mg/dl AST 85 H (13-39) U/L Alkaline Phosphatase 170 H (34-104) U/L Troponin I High Sens 33.0 H D (0-14) pg/ml Antibody Screen Crossmatch 05/21/22 05/21/22 05/21/22 Range/Units 09:31 10:45 11:14 WBC (4.8-10.8) K/ul RBC (3.93-5.22) M/uL Hgb (12.0-16.0) g/dl Hct (34.1-44.9) % MCV (80.0-100.0) fL MCH (25.0-34.0) pg RDW Std Deviation (36.4-46.3) fL RDW Coeff of Dunia (11.5-14.5) % Neut # (Auto) (1.4-6.5) K/uL Lymph # (Auto) (1.2-3.4) K/uL Travis # (Auto) (0.24-0.82) K/uL Immature Gran # (Auto) (0.00-0.02) K/uL Absolute Nucleated RBC (0-0) K/uL PT (9.0-12.0) Seconds POC INR 1.3 H 1.5 H (0.9-1.1) INR (0.9-1.1) Sodium (136-145) mmol/L Potassium (3.5-5.1) mmol/L Chloride (98-107) mmol/L BUN (6-23) mg/dl Creatinine (0.6-1.2) mg/dl BUN/Creatinine Ratio (10-20) Glucose (70-99(Fasting)) mg/dl Magnesium (1.7-2.4) mg/dl Total Bilirubin (0.2-1.0) mg/dl AST (13-39) U/L Alkaline Phosphatase (34-104) U/L Troponin I High Sens (0-14) pg/ml Antibody Screen POSITIVE A Crossmatch See Detail Diagnostic Findings Abdomen/Pelvis CT 05/21/22 09:[address] WITH IV CONTRAST CT DOSE: HISTORY: new anemia, elevated INR TECHNIQUE: Multiaxial CT images of the abdomen and pelvis were performed following the use of intravenous contrast. A dose lowering technique was utilized adhering to the principles of ALARA. COMPARISON STUDY: Abdomen and pelvis CT 05/07/2019. FINDINGS: Right posterior pleural thickening persists. The heart remains enlarged. There are poststernotomy changes and a mitral valve prosthesis again noted. Bilateral breast implants are partially visualized. No pneumoperitoneum. No pneumatosis. There is a left total hip arthroplasty. Partially visualized lobular mixed density collection within the left anterior thigh involving the quadriceps muscles and subcutaneous compartment. This measures up to 15 x 11 x 9 cm and demonstrates scattered hematocrit levels. Therefore, this is consistent with a large intramuscular/subcutaneous hematoma. There are skin drake along the lateral aspect of the left hip consistent with the recent postoperative change. There are severe body wall edema. Nodular contour to the liver consistent with cirrhosis. This remains unchanged. Trace perihepatic ascites is noted. The main portal vein is patent. Mild gallbladder wall thickening and adjacent fluid remains unchanged. This is likely chronic. There are few small gallstones. The pancreas, spleen, and adrenal glands unremarkable. The kidneys enhance normally. No hydronephrosis. No retroperitoneal lymphadenopathy. Mild bladder wall thickening, unchanged. The uterus and adnexa are unremarkable. Colonic diverticulosis. No evidence for acute diverticulitis. No bowel wall thickening or obstruction. No evidence for acute appendicitis. Hyperdense material within the distal appendix may represent a small amount of stool.. IMPRESSION: 1. A 15 x 11 x 9 mm intramuscular/subcutaneous hematoma within the left anterior thigh. 2. Recent left total hip arthroplasty. 3. Severe body wall edema. 4. Cholelithiasis. Mild gallbladder wall thickening remains unchanged and is likely chronic. A developing cholecystitis is considered less likely but not entirely excluded. Clinical correlation recommended. 5. Cardiomegaly. 6. Colonic diverticulosis. No evidence for acute diverticulitis. 7. Mild bladder wall thickening, unchanged. 8. Additional findings as described above. ACT 112: Negative or not required by law. Electronically signed by: Luis Schaeffer M.D. 05/21/2022 12:37 PM Chest X-Ray 05/21/22 09:42 XR chest 1V portable HISTORY: 62 years-old Female anemia acute anemia COMPARISON: Chest CT 03/09/2022 TECHNIQUE: AP view of the chest FINDINGS: Cardiac silhouette is enlarged. Prior median sternotomy with mitral valvular prosthesis. No pneumothorax. Trace pleural effusions with mild bibasilar opacities. Pulmonary vascular congestion. Degenerative changes of the shoulders and spine. The patient is rotated towards the left. Residual epicardial leads are again noted. The right lateral chest is partially excluded from the [id number]. Loop recorder device. IMPRESSION: 1. Cardiomegaly with pulmonary vascular congestion. 2. Trace pleural effusions with mild bibasilar opacities. ACT 112: Negative or not required by law. The above report was generated using voice recognition software. It may contain grammatical, syntax or spelling errors. Electronically signed by: Festus Blake M.D. 05/21/2022 11:[address] 05/21/22 09:[address] WITH CONTRAST CLINICAL HISTORY: new anemia, s/p surgery COMPARISON STUDY: Left hip radiographs December 11, 2019. TECHNIQUE: Axial images of the left hip were obtained following intravenous injection of 95 cc of Optiray 350. Sagittal and coronal reconstructions were viewed. Automated exposure control was utilized for the study. A dose lowering technique was utilized adhering to the principles of ALARA. FINDINGS: Please note that the abdomen and pelvis CT will be reported separately. Alignment of the left hip arthroplasty is anatomic. No p eriprosthetic fracture is noted. The hardware is intact. Anasarca is noted. There is left thigh subcutaneous stranding. Note is made of skin drake. There is a large multiloculated anterior left thigh fluid collection that measures at least 15 x 12 x 8 cm. This contains multiple hematocrit levels consistent with hematoma. This is within the anterior thigh musculature as well as the subcutaneous tissues. The inferior extent of this hematoma is not visualized on this examination. IMPRESSION: Status post left hip arthroplasty. Partially visualized large intramuscular/subcutaneous hematoma of the left thigh which measures at least 15 x 12 x 8 cm. ACT 112: Negative or not required by law. Electronically signed by: Campos Mora M.D. 05/21/2022 1:27 PM ECG Additional Comments: Ventricular-paced rhythm Abnormal ECG When compared with ECG of 06-APR-2022 17:14, Vent. rate has increased BY 3 BPM Code Status & VTE Plan Code Status Full Code. Supervising Physician Co-Signing Physician Notes Patient seen and examined, chart reviewed, case discussed with Laly Peters PA-C and I agree with the assessment and plan as above except as otherwise noted Labs and images reviewed Arrivated at [facility] a few days ago after L hip surgery at [facility]. D/c home, was not ambulating well with walker, went to [facility]. D/[facility] to [facility] 3 days ago. No labs/dc paperwork provided to [facility] from [place]. Prior hgb at last dc [facility] ~7.0. On coumadin due to afib s/p valve replacement w/ lovenox bridging. INR yesterday 5.0, lovenox held and coumadin held. Hgb 4.0 on outpatient labs with INR pending. INR on admit 9.6. No shortness of breath/dyspnea. +hematuria last night, scant. No fevers/chills. Hx of CHF, no echo available, was keeping on dry side w/ torsemide 100mg daily as outpatient. In ER Recieved vitamin K. Dr. Villegas consulted by ER. +3u RBC (note multiple antibodies, sampler and test preparer sent to [place]. If worsening will need O- blood.). Recieved KCentra. CT-A/P: No retroperitoneal/intraabdominal bleed. +L thigh hematoma. Hgb 4.7 WBC: 24.43 at bedside patient is with significant pallor, no lightheadedness/dizziness, but fatigues easily. Bilateral lower extremity edema. No tachycardia. Blood pressure systolic 1 teens. Lungs grossly clear. Acute on chronic anemia, supratherapeutic INR with thigh hematoma Kcentra and vitamin K given, 3 units pending transfusion Echo 2019 severe right-sided failure with EF 50% Follow closely for evidence of volume overload with transfusion, at presentation is clinically volume depleted Trend hemoglobin every 6 hours Hold spironolactone/torsemide/metoprolol for hypotension. If blood pressure stabilizes resume metoprolol first. Patient with + transfusion antibodies. If decompensating give O-. Crossband Layer sent, blood transfusion consent completed. PLT 399. Hyperkalemia: 6.1 on admission, patient previously requiring aggressive supplementation and on high-dose torsemide. Spironolactone held, potassium supplementation held, 1 dose 10 g PCC given, BMP every 4 hours. 1 g calcium given. Patient receiving blood, additional fluids deferred due to severe right- sided failure and concern for precipitating taco/volume overload. Orthopedics consulted for thigh hematoma. CT: Status post left hip arthroplasty. Partially visualized large intramuscular/subcutaneous hematoma of the left thigh which measures at least 15 x 12 x 8 cm.Continue observation and treatment above. Hyponatremia: ?volume depletion vs SIADH. BMP as above. Cautious fluids as above. Diuretic held. Urine studies pended. Addendum: Given antibody positive and risk of transfusion reaction and further antibody development O- unit deferred unless patient becomes hemodynamically unstable. TXA given. Pending 2 units from [facility]. PG Care Time/CCT Total # of Minutes Spent Total Time Spent with Patient: Total time spent is greater than 50% in coordination of care (as documented) at patient's floor/unit and/or counseling patient: Coding Level of Care Code 64651 Initial Inpt Care Lvl 3 Diagnoses Anemia D64.9 Supratherapeutic INR R79.1 Hematoma of left thigh S70.12XA Hyperkalemia E87.5 Hyponatremia E87.1 Right ventricular dysfunction I51.9 Acute kidney injury N17.9 Pacemaker Z95.0 H/O tricuspid valve repair Z98.890 DM2 (diabetes mellitus, type 2) E11.9 Elevated LFTs R79.89 Leukocytosis D72.829 Atrial fibrillation I48.2 Atrial fibrillation type: permanent (1) Atrial fibrillation Atrial fibrillation type: permanent Qualified Code(s): I48.2 - Chronic atrial fibrillation
[2022-05-21] MEDS ORDERED: CALCIUM GLUCONATE 10% 1,000 MG in DEXTROSE 5% 50 ML IV ONE ×2 (14:45→22:15)
[2022-05-21] MEDS ORDERED: STAT IV STA ×2 (14:45→22:03)
[2022-05-21] MEDS ORDERED: CEFEPIME 2,000 MG/20 ML VIAL IV STA (14:48)
[2022-05-21] MEDS ORDERED: SODIUM CHLORIDE 0.9% 1000ML 250 ML IV ONE (14:58)
[2022-05-21] MEDS ORDERED: TRANEXAMIC ACID / 0.7% NACL 1,000 MG/100 ML BAG IV STA (17:07)
[2022-05-21 18:25] LABS: Appearance Urine Cloudy (Clear); Bacteria Urine Automated Negative (Negative); Bilirubin Urine Negative (Negative); Blood Urine 2+ (Negative); Color Urine Yellow; Glucose Urine UA Negative (Negative); Ketones Urine Negative (Negative); Leukocyte Esterase Urine 2+ (Negative); Nitrite Urine Negative (Negative); Protein Urine Negative (Negative); Specific Gravity Urine 1.023 (1.000-1.030); Urobilinogen Urine Negative (Negative); WBC Urine Automated >30 /hpf (0-5)
[2022-05-21] MEDS ORDERED: CARBOHYDRATES FOR HYPOGLYCEMIA PO PRN (18:37)
[2022-05-21] MEDS ORDERED: DOCUSATE SODIUM/SENNA 50/8.6MG TAB PO PRN (18:37)
[2022-05-21] MEDS ORDERED: GLUCOSE 40% GEL 15 GM TUBE PO PRN (18:37)
[2022-05-21] MEDS ORDERED: DEXTROSE 50% 50 ML SYRINGE IV PRN (18:37)
[2022-05-21] MEDS ORDERED: GLUCOSE 10 TAB/TUBE PO PRN (18:37)
[2022-05-21] MEDS ORDERED: DC ALL PREVIOUSLY ORDERED DIABETES MEDS ONE (18:37)
[2022-05-21] MEDS ORDERED: GLUCAGON FOR INJ 1 MG VIAL SQ PRN (18:37)
[2022-05-21] MEDS ORDERED: POLYETHYLENE (MIRALAX) 17 GM PACK PO PRN (18:37)
[2022-05-21] MEDS ORDERED: MAGNESIUM HYDROXIDE SUSP 30 ML UDC PO PRN (18:37)
[2022-05-21] MEDS ORDERED: bisacodyL 10 MG SUPP PR PRN (18:37)
[2022-05-21 19:20] LABS: Hematocrit (blood only) 14.2 % (34.1-44.9); Hemoglobin 4.7 g/dl (12.0-16.0)
[2022-05-21 19:36] LABS: INR 1.7 (0.9-1.1); Prothrombin Time 17.4 Seconds (9.0-12.0)
[2022-05-21] MEDS ORDERED: FLUARIX QUADRIVALENT 0.5 ML SYR IM ONE (19:57)
[2022-05-21] MEDS: SODIUM ZIRCONIUM CYCLOSILICATE 10 GM PACKET PO SCH (19:58)
[2022-05-21] MEDS: TAMSULOSIN HCL 0.4 MG CAP PO SCH (20:00)
[2022-05-21] MEDS: MIRTAZAPINE TAB 15 MG TAB PO SCH (20:00)
[2022-05-21 20:02] LABS: BUN Creatinine Ratio 54.9 (10-20); Creatinine Clr Calc Pharmacy 47.5 ml/min; Est GFR (African American) 49.9 ml/min; Potassium 6.1 mmol/L (3.5-5.1)
[2022-05-21] MEDS: CEFEPIME 1,000 MG in SYRINGE 0 ML IV SCH (20:02)
[2022-05-21] MEDS: INSULIN ASPART PER UNIT SC SCH (20:13)
[2022-05-21] MEDS: traMADol HCL 50 MG TABLET PO PRN (20:14)
[2022-05-21] MEDS: ONDANSETRON INJ 2 MG/ML 2 ML VIAL IV PRN (21:14)
[2022-05-21] MEDS ORDERED: FUROSEMIDE INJ 20 MG/2 ML VIAL IV PRN (22:03)
[2022-05-21 22:54] LABS: BUN Creatinine Ratio 52.5 (10-20); Calcium 8.6 mg/dl (8.5-10.1); Creatinine Clr Calc Pharmacy 45.4 ml/min; Est GFR (African American) 47.3 ml/min; Est GFR (Non-African American) 40.8 ml/min; Potassium 5.7 mmol/L (3.5-5.1)
[2022-05-22] MEDS: ACETAMINOPHEN 500 MG TAB PO PRN (00:53)
[2022-05-22] MEDS: ONDANSETRON INJ 2 MG/ML 2 ML VIAL IV PRN ×3 (03:15→20:32)
--- NOTE | 2022-05-22 05:59 | Electrocardiogram Report ---
Test Reason : Blood Pressure : / mmHG Vent. Rate : 073 BPM Atrial Rate : 078 BPM P-R Int : 000 ms QRS Dur : 196 ms QT Int : 508 ms P-R-T Axes : 000 -49 105 degrees QTc Int : 559 ms Ventricular-paced rhythm Abnormal ECG When compared with ECG of 06-APR-2022 17:14, Vent. rate has increased BY 3 BPM Confirmed by Morgan Tiwari ([id number]) on 05/22/2022 5:58:44 AM Referred By: Provider Outside Confirmed By:Morgan Tiwari
[2022-05-22] MEDS: CEFEPIME 1,000 MG in SYRINGE 0 ML IV SCH (08:11)
[2022-05-22] MEDS: INSULIN ASPART PER UNIT SC SCH ×4 (08:18→21:05)
[2022-05-22] MEDS: LIDOCAINE 5% 1 PATCH TD SCH (09:30)
[2022-05-22] MEDS: SODIUM ZIRCONIUM CYCLOSILICATE 10 GM PACKET PO SCH (09:30)
[2022-05-22] MEDS: traMADol HCL 50 MG TABLET PO PRN (12:11)
--- NOTE | 2022-05-22 12:13 | Hospitalist Progress Note ---
Date of Service May 22, 2022 Assessment & Plan (1) Acute blood loss anemia: Plan: severe, 2nd to hematoma of left high in the setting of anticoagulant-induced bleeding/supratherapeutic INR. presenting Hb <5. s/p 3 units PRBCs - repeat Hb 6.9 - elected to give a 4th unit. there is concern she could have continued left thigh bleeding - thus, 2 additional units to be on hold requested from [facility]. continue serial CBCs as per Dr Villegas watch carefully over the next 2-3 days delayed transfusion reaction. she would benefit from IV Venofer while here. check b12/folate to be complete in am. checking Fe studies unlikely to be helpful given her copious PRBCs. (2) Hematoma of left thigh: Plan: severe - 15cm x 12cm x 8cm. 2nd to use of therapeutic lovenox as well as supratherapeutic INR from coumadin use. call placed to her surgical team in [place]. Appreciate U orthopedic consult. Serial exams. Serial CBCs. Ice now; then heat. Pain meds prn. x-rays with intact hardware. Hopefully no surgical intervention will be needed. (3) Anticoagulant-induced bleeding: Plan: chronic coumadin use with presenting INR of nearly 10. s/p vitamin k s/p K-centra INR now <2 coumadin on hold INR goal chronically is 2.5 to 3.[address] [facility] (4) Supratherapeutic INR: Plan: See above. (5) Nausea: Plan: 2nd to UTI? 2nd to constipation? 2nd to pain meds? 2nd to gallstones as seen on admission CT? cont prn anti-emetics cont abx for UTI bowel regimen for Rx constipation watch closely for symptoms that would suggest we are dealing with biliary tract issue (6) Hyperkalemia: Plan: 2nd to JASMIN resolved bmp am (7) Hyponatremia: Plan: lowest Na level 123 2nd to JASMIN, diuretics, etc modestly improved to 126 with mild IV fluids overnight and supportive care cont serial BMPs could be contributing to the mild confusion she is reporting random cortisol level >20 making adrenal insufficiency unlikely (8) Acute kidney injury: Plan: Peak Cr 1.4 baseline 0.8-0.9 Cr now 1.2 cont supportive care BMP am (9) Pacemaker: Plan: H/o third-degree heart block s/p permanent pacemaker placement (10) H/O tricuspid valve repair: Plan: 2006 (11) DM2 (diabetes mellitus, type 2): Plan: Hba1c 6.1% 04/2022 pre-DM hold metformin loose novolog sliding scale (12) Elevated LFTs: Plan: at minimum is 2nd to passive congestion of liver from severe right-sided CHF could have element of actual cardiac cirrhosis trend the LFTs (13) Atrial fibrillation: Plan: paced on monitor at this time (14) Pulmonary hypertension: Plan: severe (15) RHF (right heart failure): Plan: 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 looks mildly decompensated cardiology consult placed to Dr Michaels with [facility] defer diuretic management to their team (16) Tricuspid stenosis: (17) S/P MVR (mitral valve replacement): Plan: initial replacement in 1985 re-do MVR in [address] [facility] valve INR goal 2.5 - 3.[address] Yanni Villegas in [facility] coumadin clinic see above (18) Rheumatic cardiomyopathy: (19) UTI (urinary tract infection): Plan: 2nd enterococcus stop cefepime start IV daptomycin follow culture (20) Gallstones: Plan: if nausea persists and/or she develops other symptoms due to gallstones may need dedicated RUQ u/s, etc Plan PT, OT evals will be needed very complex care coordination today - total time 80 minutes - numerous phone calls to multiple providers, complex Rx of numerous medical issues, etc Admission and Anticipated Discharge Date Admission Date: May 21, 2022 Subjective extensive discussion held with patient during my visit she was receiving her 3rd of 3 units of PRBCs while we were talking and has tolerated the blood thus far she states she can't remember alot of the details of her 10-day stay at [facility] Dr Nicolás Han had performed L hip revision her original left hip issues started in 2019 when she fell and broke the hip she underwent ORIF at [facility] in 2019 for the broken hip she thinks the left leg hematoma started when she was getting into the transport van in [facility] to travel to [facility] in [place] while getting into the van she hit the thigh and had severe pain her main complain out of left hip pain today is that of nausea she has little appetite for her meal-try and is worried she will vomit if she eats she had a small BM yesterday only denies abd pain she is worried about her edema and asks when her diuretics will be resumed following my visit I placed a call to her orthopedist, Dr Han, in [place] he was out of the office the nurse there took my information I reported the L thigh hematoma and the nurse said one of his partners would call back I also discussed her case with Dr Michaels from cardiology, Dr Cheatham from orthopedics, and Dr Villegas from the clinic Dr Villegas reported that pt has multiple blood antibodies including an ab called "CW" which is associated with delayed transfusion reactions tele overnight - pacing Review of Systems Review of Systems: gen - no fever; fatigue cv - no chest pain; no orthopnea; +edema pulm - no dyspnea or cough GI - no vomiting but ongoing nausea musculo - left hip pain and swelling Physical Exam Physical Exam: gen - anxious, ill-appearing, tired-appearing, slight confusion noted neck - JVD to the jaw mouth - MMM heart - RRR, s1 s2, 3/6 holosystolic murmur RUSB/LSB lungs - mild bibasilar rales, no wheeze, no increased work of breathing abd - body wall edema, soft, NT, mildly distended, BS+ ext - SEVERE edema left leg from the hip all the way to the foot; the left thigh is tense due to the edema; RLE edema 1+ musculo - left thigh incision with drake; serous drainage, slightly yellow only skin - incision L thigh; chronic hyperpigmentation/stasis changes b/l shins psych - anxious, poor eye contact, oriented to person/place Results & Data Results & Data ([facility]) Vital Signs (Past 12 Hours) Vital Signs Temp Pulse Resp BP Pulse Ox O2 Del Method O2 Flow Rate 05/22/22 11:39 36.6 C 73 20 124/58 L 97 05/22/22 10:45 36.6 C 72 20 112/65 97 05/22/22 09:45 36.6 C 71 18 95/71 L 95 05/22/22 08:45 36.7 C 71 19 117/55 L 100 05/22/22 08:15 36.6 C 75 19 125/56 L 98 05/22/22 08:26 Room Air 10/14/22 08:00 36.7 C 73 18 122/55 L 90 05/22/22 07:41 36.7 C 73 18 111/52 L 05/22/22 07:15 36.5 C 73 18 112/55 L 96 05/22/22 06:27 36.5 C 71 16 111/54 L 97 05/22/22 05:27 36.6 C 73 20 103/53 L 96 05/22/22 05:15 36.6 C 73 18 102/48 L 97 05/22/22 05:00 36.6 C 72 18 118/61 97 05/22/22 04:45 36.6 C 73 24 121/67 98 05/22/22 03:20 36.6 C 71 18 114/62 96 05/22/22 04:26 36.6 C 72 20 119/58 L 98 05/22/22 04:09 36.6 C 70 18 108/58 L 96 05/22/22 02:20 36.5 C 72 22 122/50 L 98 05/22/22 01:50 36.7 C 73 20 106/52 L 98 05/22/22 01:35 36.6 C 73 20 116/65 96 05/22/22 01:17 36.7 C 74 22 109/63 97 05/22/22 01:02 36.7 C 73 20 114/60 97 05/22/22 00:48 36.6 C 73 22 114/64 97 Laboratory Results Laboratory Results - last 24 hr 05/21/22 05/21/22 05/21/22 09:31 10:45 11:14 Hgb Hct PT POC INR 1.3 H 1.5 H INR Sodium Potassium Chloride Carbon Dioxide Anion Gap BUN Creatinine Est Cr Clr Drug Dosing Est GFR ( Amer) Est GFR (Non-Af Amer) BUN/Creatinine Ratio Glucose POC Glucose Calcium Troponin I High Sens Urine Color Urine Appearance Urine pH Ur Specific [place] Urine Protein Urine Glucose (UA) Urine Ketones Urine Blood Urine Nitrite Urine Bilirubin Urine Urobilinogen Ur Leukocyte Esterase Urine WBC (Auto) Urine RBC (Auto) U Hyaline Cast (Auto) U Epithel Cells (Auto) Urine Bacteria (Auto) Nasal Screen MRSA (PCR) SARS-CoV-2, RNA, NAAT Blood Type O Positive Antibody Screen POSITIVE A Antibody Identification Anti-CW Antibody ID Comment Cancelled Crossmatch See Detail 05/21/22 05/21/22 05/21/22 16:00 17:39 18:30 Hgb Hct PT POC INR INR Sodium Potassium Chloride Carbon Dioxide Anion Gap BUN Creatinine Est Cr Clr Drug Dosing Est GFR ( Amer) Est GFR (Non-Af Amer) BUN/Creatinine Ratio Glucose POC Glucose Calcium Troponin I High Sens Urine Color Yellow Urine Appearance Cloudy A Urine pH 7.0 Ur Specific [place] 1.023 Urine Protein Negative Urine Glucose (UA) Negative Urine Ketones Negative Urine Blood 2+ H Urine Nitrite Negative Urine Bilirubin Negative Urine Urobilinogen Negative Ur Leukocyte Esterase 2+ H Urine WBC (Auto) >30 H Urine RBC (Auto) 5-10 H U Hyaline Cast (Auto) 1-5 U Epithel Cells (Auto) 5-10 H Urine Bacteria (Auto) Negative Nasal Screen MRSA (PCR) Negative SARS-CoV-2, RNA, NAAT NEGATIVE Blood Type Antibody Screen Antibody Identification Antibody ID Comment Crossmatch 05/21/22 05/21/22 05/21/22 19:04 19:04 19:04 Hgb 4.7 L* Hct 14.2 L* PT 17.4 H POC INR INR 1.7 H Sodium 123 L Potassium 6.1 H* Chloride 91 L Carbon Dioxide 24 Anion Gap 8 BUN 73 H Creatinine 1.33 H Est Cr Clr Drug Dosing 47.5 Est GFR ( Amer) 49.9 Est GFR (Non-Af Amer) 43.0 BUN/Creatinine Ratio 54.9 H Glucose 132 H POC Glucose Calcium 9.0 Troponin I High Sens Urine Color Urine Appearance Urine pH Ur Specific [place] Urine Protein Urine Glucose (UA) Urine Ketones Urine Blood Urine Nitrite Urine Bilirubin Urine Urobilinogen Ur Leukocyte Esterase Urine WBC (Auto) Urine RBC (Auto) U Hyaline Cast (Auto) U Epithel Cells (Auto) Urine Bacteria (Auto) Nasal Screen MRSA (PCR) SARS-CoV-2, RNA, NAAT Blood Type Antibody Screen Antibody Identification Antibody ID Comment Crossmatch 05/21/22 05/21/22 05/21/22 20:07 20:36 22:20 Hgb Hct PT POC INR INR Sodium 124 L Potassium 5.7 H Chloride 91 L Carbon Dioxide 24 Anion Gap 9 BUN 73 H Creatinine 1.39 H Est Cr Clr Drug Dosing 45.4 Est GFR ( Amer) 47.3 Est GFR (Non-Af Amer) 40.8 BUN/Creatinine Ratio 52.5 H Glucose 126 H POC Glucose 178 H Calcium 8.6 Troponin I High Sens 35.2 H Urine Color Urine Appearance Urine pH Ur Specific [place] Urine Protein Urine Glucose (UA) Urine Ketones Urine Blood Urine Nitrite Urine Bilirubin Urine Urobilinogen Ur Leukocyte Esterase Urine WBC (Auto) Urine RBC (Auto) U Hyaline Cast (Auto) U Epithel Cells (Auto) Urine Bacteria (Auto) Nasal Screen MRSA (PCR) SARS-CoV-2, RNA, NAAT Blood Type Antibody Screen Antibody Identification Antibody ID Comment Crossmatch 05/22/22 05/22/22 07:55 11:28 Hgb Hct PT POC INR INR Sodium Potassium Chloride Carbon Dioxide Anion Gap BUN Creatinine Est Cr Clr Drug Dosing Est GFR ( Amer) Est GFR (Non-Af Amer) BUN/Creatinine Ratio Glucose POC Glucose 187 H 166 H Calcium Troponin I High Sens Urine Color Urine Appearance Urine pH Ur Specific [place] Urine Protein Urine Glucose (UA) Urine Ketones Urine Blood Urine Nitrite Urine Bilirubin Urine Urobilinogen Ur Leukocyte Esterase Urine WBC (Auto) Urine RBC (Auto) U Hyaline Cast (Auto) U Epithel Cells (Auto) Urine Bacteria (Auto) Nasal Screen MRSA (PCR) SARS-CoV-2, RNA, NAAT Blood Type Antibody Screen Antibody Identification Antibody ID Comment Crossmatch PG Care Time/CCT Total # of Minutes Spent Total Time Spent with Patient: Total time spent is greater than 50% in coordination of care (as documented) at patient's floor/unit and/or counseling patient: Prolonged Care Time Prolonged Care Time: Yes Total Prolonged Care Time: 80 Coding Level of Care Code 17925 Subseq Hosp Care Lvl 3 (25 - SIGNIFICANT, SEPARATELY IDENTIFIABLE ) Diagnoses Acute blood loss anemia D62 Hematoma of left thigh S70.12XA Anticoagulant-induced bleeding T45.7X1A; D68.9 Supratherapeutic INR R79.1 Nausea R11.0 Hyperkalemia E87.5 Hyponatremia E87.1 Acute kidney injury N17.9 Pacemaker Z95.0 H/O tricuspid valve repair Z98.890 DM2 (diabetes mellitus, type 2) E11.9 Elevated LFTs R79.89 Atrial fibrillation I48.2 Atrial fibrillation type: permanent Pulmonary hypertension I27.20 RHF (right heart failure) I50.810 Tricuspid stenosis I07.0 S/P MVR (mitral valve replacement) Z95.2 Rheumatic cardiomyopathy I09.0 UTI (urinary tract infection) N39.0 Gallstones K80.20 Additional Codes Prolonged Care Time - Prolonged Care Time: Yes ([id number]) (1) Atrial fibrillation Atrial fibrillation type: permanent Qualified Code(s): I48.2 - Chronic atrial fibrillation
[2022-05-22 12:41] LABS: Hematocrit (blood only) 20.8 % (34.1-44.9); Hemoglobin 6.9 g/dl (12.0-16.0); Mean Corpuscular Hemoglobin 33.7 pg (25.0-34.0); Mean Corpuscular Hgb Conc 33.2 g/dL (32.0-36.0); Mean Corpuscular Volume 101.5 fL (80.0-100.0); Mean Platelet Volume 9.3 fL (9.4-12.3); Nucleated RBC # (auto) 0.04 K/uL (0-0); Nucleated RBC % (auto) 0.2 %; Platelet Count 366 K/uL (130-400); RDW Coefficient of Variation 21.2 % (11.5-14.5); RDW Standard Deviation 68.8 fL (36.4-46.3); Red Blood Count 2.05 M/uL (3.93-5.22)
[2022-05-22 12:51] LABS: INR 1.4 (0.9-1.1); Prothrombin Time 14.2 Seconds (9.0-12.0)
[2022-05-22] MEDS ORDERED: SODIUM CHLORIDE 0.9% 250 ML IV PRN (12:54)
[2022-05-22 13:00] LABS: Anisocytosis Present; Basophils # (auto) 0.11 K/uL (0-0.2); Basophils % (auto) 0.5 %; Eosinophils # (auto) 0.29 K/uL (0-0.50); Eosinophils % (auto) 1.3 %; Immature Granulocytes # (auto) 0.99 K/uL (0.00-0.02); Immature Granulocytes % (auto) 4.4 %; Lymphocytes # (auto) 0.86 K/uL (1.2-3.4); Lymphocytes % (auto) 3.8 %; Monocytes # (auto) 1.75 K/uL (0.24-0.82); Monocytes % (auto) 7.7 %; Neutrophils % (auto) 82.3 %; Polychromasia 2+
--- NOTE | 2022-05-22 13:08 | Orthopedic Consultation ---
Date of Consultation May 22, 2022 Assessment & Plan (1) Hematoma of left thigh: Left thigh hematoma related to complex surgical procedure. Patient will likely have more bleeding due to hardware removal and concomitant total hip replacement through 2 different approaches. Patient's not overtly infected. Blood cultures were all negative and patient afebrile. At this point patient has electrolyte abnormalities that would need to be corrected prior to considering any surgical intervention if surgery was contemplated. Hematomas can be treated if not infectious with ice followed by heat ice contrast gentle PT and I discussed with her this could take months to recover. If she were to have the surgical treatment with drainage of hematoma this is best performed by her treating physician who did the original procedure and hip replacement. If she required emergent procedure for some reason here at [facility] we would have to get all of her records in terms of implants prior to any intervention on her hip. It would be prudent to get a baseline left hip x-ray AP pelvis lateral left hip. History of Present Illness Reason for Consultation: Left thigh hematoma Attending Physician: Baljinder Hung History of Present Illness 62-year-old female who is status post left hip surgery May 08, 2022. Surgery was required due to avascular necrosis of the femur head as a consequence of hip fracture with screw fixation of the hip. She had hardware removal the of the lateral incision where the screws were placed and she had an anterior approach to the hip with a total hip arthroplasty. Postop course complicated by bleeding due to in part being bridged with Lovenox and being on Coumadin and elevated INR 5.0. Patient treated with vitamin K 3 units of blood has electrolyte abnormalities and treated here now in the ICU at [facility]. Allergies Allergy/AdvReac Type Severity Reaction Status Date / Time mushroom Allergy Intermediate EYES Verified 05/21/22 13:33 SWELLED adhesive Allergy Mild rash Verified 05/21/22 13:33 Corticosteroids Allergy Unknown HYPOTENSION Verified 05/21/22 13:33 (Glucocorticoids) hydrocodone Allergy Unknown ON MED LIST Verified 05/21/22 13:33 levofloxacin [From Levaquin] Allergy Unknown ON MED LIST Verified 05/21/22 13:33 morphine Allergy Unknown HALLUCINATI Verified 05/21/22 13:33 ONS spironolactone Allergy Unknown Unknown Verified 05/21/22 13:33 Estrogens AdvReac Severe CHF Verified 05/21/22 13:33 lorazepam AdvReac Severe mental Verified 05/21/22 13:33 status change azithromycin AdvReac Intermediate Tachycardia Verified 05/21/22 13:33 [From Zithromax Z-Anton] /A-FIB codeine AdvReac Intermediate Shakiness Verified 05/21/22 13:33 doxycycline AdvReac Intermediate LEGS SWELL Verified 05/21/22 13:33 fluocinonide AdvReac Intermediate Tachycardia Verified 05/21/22 13:33 NSAIDS (Non-Steroidal AdvReac Intermediate HYPOTENSION Verified 05/21/22 13:33 Anti-Inflamma zolpidem [From Ambien] AdvReac Intermediate MENTAL Verified 05/21/22 13:33 STATUS CHANGE prednisone AdvReac Unknown LOW BP D/T Verified 05/21/22 13:33 FLUID SHIFT Anti-Depressents Allergy Unknown SEE COMMENT Uncoded 05/21/22 13:33 Home Medications Medication Instructions Recorded Confirmed Type metolazone 2.5 mg tablet 0 mg PO [id number] 04/06/22 05/21/22 History metoprolol succinate 25 mg 25 mg PO HS 04/06/22 05/21/22 History tablet,extended release 24 hr mirtazapine 15 mg tablet 15 mg PO HS 04/06/22 05/21/22 History multivitamin 1 tab PO DAILY 04/06/22 05/21/22 History torsemide 100 mg tablet 100 mg PO DAILY 04/06/22 05/21/22 History tramadol 50 mg tablet 50 mg PO Q6H PRN Pain 04/06/22 05/21/22 History warfarin 1 mg tablet (Jantoven) 1 mg PO .COMPLEX 05/01/22 05/21/22 History warfarin 1 mg tablet (Jantoven) 2 mg PO .COMPLEX 05/01/22 05/21/22 History acetaminophen 500 mg tablet 1,000 mg PO Q8H PRN FEVER/CHRISTIAN 05/21/22 05/21/22 History (Tylenol Extra Strength) bisacodyl 10 mg rectal suppository 10 mg SD DAILY PRN Constipation 05/21/22 05/21/22 History docusate sodium 100 mg capsule 100 mg PO BID 05/21/22 05/21/22 History enoxaparin 80 mg/0.8 mL 80 mg subcut DAILY 05/21/22 05/21/22 History subcutaneous syringe hydroxyzine HCl 25 mg tablet 25 mg PO Q6H PRN Anxiety 05/21/22 05/21/22 History insulin regular human 100 unit/mL 1 sliding scale dose subcut 05/21/22 05/21/22 History injection solution (Humulin R USEASDIRECTD Regular U-100 Insulin) lidocaine 5 % topical patch 1 patch topical DAILY 05/21/22 05/21/22 History magnesium hydroxide 2,400 mg/10 mL 30 ml PO DAILY PRN Constipation 05/21/22 05/21/22 History oral suspension (Milk Of Magnesia Concentrated) melatonin 3 mg tablet 6 mg PO HS PRN Sleep 05/21/22 05/21/22 History meloxicam 15 mg tablet 15 mg PO DAILY 05/21/22 05/21/22 History metformin 500 mg tablet,extended 500 mg PO BIDM 05/21/22 05/21/22 History release 24 hr metolazone 2.5 mg tablet 2.5 mg PO DAILY 05/21/22 05/21/22 History ondansetron 4 mg disintegrating 4 mg PO Q4H PRN NAUSEA/VOMITING 05/21/22 05/21/22 History tablet polyethylene glycol 3350 17 17 g PO QDL PRN Constipation 05/21/22 05/21/22 History gram/dose oral powder (Miralax) potassium chloride 20 mEq 40 meq PO DAILY 05/21/22 05/21/22 History tablet,extended release sennosides 8.6 mg tablet (senna) 17.2 mg PO DAILY 05/21/22 05/21/22 History sennosides 8.6 mg-docusate sodium 1 tab-cap PO QDL PRN Constipation 05/21/22 05/21/22 History 50 mg tablet (Senokot-S) spironolactone 25 mg tablet 25 mg PO BID 05/21/22 05/21/22 History tamsulosin 0.4 mg capsule 0.4 mg PO QDD 05/21/22 05/21/22 History Patient History Medical History Acute exacerbation of chronic low back pain Anemia Atrial fibrillation Avascular necrosis of bone of left hip Chronic anticoagulation Chronic cor pulmonale Chronic left hip pain Chronic SI joint pain Depression Diverticular disease DM w/o complication type II high BSG in am, but normal A1C. Takes no medications. Elevated LDH Hernia X2 Leg length discrepancy Mitral stenosis Post traumatic stress disorder Right-sided heart failure Tricuspid stenosis, acquired due to prior tricuspid valve repair Upper respiratory infection currently on abx Surgical History H/O mitral valve replacement 1985, initial MVR at [facility] [address] [facility] Mechanical valve; INR goal 2.5-3.5 H/O tricuspid valve repair initial - 1985; repeat TV repair 2004 H/O tympanostomy History of bilateral tubal ligation History of cardiac cath 1983, 2003, NO STENTS ROUTINE History of cardiac radiofrequency ablation for a.fib - 2003 History of endoscopic sinus surgery ATTEMPTED TO CAUTERIZE 05/14, UNABLE, PATIENT IN PAIN AND BLEEDING History of permanent cardiac pacemaker placement 2019 - placed due to complete heart block interrogated february 2020 History of placement of ear tubes History of tubal ligation S/P ORIF (open reduction internal fixation) fracture Left hip July 2019 [facility] teeth removed Family History Mother , 60s Gastric cancer Father , age 65 Lung cancer Social History Smoking Status: Former smoker packs per day: 0.5; Cigarettes Per Day: 10; Hx Alcohol Use: Yes Alcohol type: beer Hx Substance Use: No Preferred Language: Greenlandic Communication Ability: Effective Trouble Shooting Mechanic Required: No Beliefs That Will Affect Care: Spiritual marital status: Single marital status details: 1 son Current Living Situation: Alone Current Living Situation Comment: PATIENT DOES HAVE ANY FRIENDS/FAMILY. 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 7 a lot of edema over the leg and pain associated with that. Physical Exam Physical Exam: Leg lengths appear to be appropriate with hip clinically located. She has diffuse spots of drainage from the lateral incision was still drake in place which has no erythema and no major drainage from that site. Anterior approach to the hip incision is under tension. It was closed with a surgical glue technique. The upper half incisions has tension on it and slightly pulled apart and widened but there is no reese dehiscence. There is edema of the thigh knee lower leg. She is good capillary refill circulation in her foot. There is some tenseness to the soft tissues of the thigh due to edema and bleeding and some ecchymosis down at the level of the knee. Results & Data ([facility]) Vital Signs (Past 12 Hours) Vital Signs Temp Pulse Resp BP Pulse Ox O2 Del Method 05/22/22 11:39 36.6 C 73 20 124/58 L 97 05/22/22 10:45 36.6 C 72 20 112/65 97 05/22/22 09:45 36.6 C 71 18 95/71 L 95 05/22/22 08:45 36.7 C 71 19 117/55 L 100 05/22/22 08:15 36.6 C 75 19 125/56 L 98 05/22/22 08:26 Room Air 05/22/22 08:00 36.7 C 73 18 122/55 L 90 05/22/22 07:41 36.7 C 73 18 111/52 L 05/22/22 07:15 36.5 C 73 18 112/55 L 96 05/22/22 06:27 36.5 C 71 16 111/54 L 97 05/22/22 05:27 36.6 C 73 20 103/53 L 96 05/22/22 05:15 36.6 C 73 18 102/48 L 97 05/22/22 05:00 36.6 C 72 18 118/61 97 05/22/22 04:45 36.6 C 73 24 121/67 98 05/22/22 03:20 36.6 C 71 18 114/62 96 05/22/22 04:26 36.6 C 72 20 119/58 L 98 05/22/22 04:09 36.6 C 70 18 108/58 L 96 05/22/22 02:20 36.5 C 72 22 122/50 L 98 05/22/22 01:50 36.7 C 73 20 106/52 L 98 05/22/22 01:35 36.6 C 73 20 116/65 96 05/22/22 01:17 36.7 C 74 22 109/63 97 05/22/22 01:02 36.7 C 73 20 114/60 97 Laboratory Results Vital signs are normal and patient afebrile, white count 22.7, hemoglobin 6.9, INR 1.4, sodium 124, potassium 5.[address] scan demonstrates a thigh hematoma with intact total hip replacement. 1 could see the bony changes in the trochanteric region where the screws were there from previous surgery that have since been removed.
[2022-05-22 13:13] LABS: Albumin Globulin Ratio 1.2 (0.9-2); Albumin Level 3.7 gm/dl (3.4-5.0); BUN Creatinine Ratio 50.4 (10-20); Bilirubin,Total 2.8 mg/dl (0.2-1.0); Calcium 9.1 mg/dl (8.5-10.1); Creatinine Clr Calc Pharmacy 49.7 ml/min; Est GFR (African American) 52.7 ml/min; Est GFR (Non-African American) 45.5 ml/min; Globulin 3.1 gm/dl (2.5-4.0); Potassium 4.8 mmol/L (3.5-5.1); Total Protein 6.8 gm/dl (6.0-8.3)
[2022-05-22 13:16] LABS: Troponin I High Sensitivity 35.8 pg/ml (0-14)
--- NOTE | 2022-05-22 13:54 | Cardiology Consultation ---
Date of Consultation May 22, 2022 Assessment & Plan (1) Hematoma of left thigh: (2) Supratherapeutic INR: (3) Anemia: (4) Rheumatic cardiomyopathy: (5) S/P MVR (mitral valve replacement): (6) H/O tricuspid valve repair: (7) Tricuspid stenosis: (8) RHF (right heart failure): (9) Pulmonary hypertension: Plan Complex patient with rheumatic heart disease. She underwent a total hip replacement and developed a left thigh hematoma postop with a supratherapeutic INR and profound anemia. The patient does have antibodies due to history of multiple transfusions however, I would transfuse her to maintain a hemoglobin above 8.0. She has significant lower extremity edema, some of which is chronic from her right heart failure, but I think the volume overload is also contributing to her hyponatremia and therefore I started her on Lasix 40 mg IV twice daily. The intent here is to improve her volume status and hopefully her hyponatremia. I would hold the spironolactone which definitely may be contributing to hyponatremia. Once her INR has normalized and hemostasis ach ieved, then I would start her on IV heparin without initial bolus. This may be possible tomorrow but if necessary restarting anticoagulation can wait an additional 24 hours. History of Present Illness Attending Physician: Baljinder Hung History of Present Illness This is a 62-year-old female who has followed with Dr. Omid Hernandez for years. She has longstanding complex rheumatic valvular heart disease and is status post mitral valve replacement with mechanical prosthesis and associated tricuspid valve repair in 2 separate settings 1985 and redo in 2004. The patient had a hip fracture on the left in 2018. As a result she had severe degenerative changes to the left hip with severe pain. The patient had recent left hip replacement at [facility] and prior to that surgery was seen by Dr. Hernandez who noted that the mechanical prosthesis in the mitral position was functioning normally but the patient has postsurgical tricuspid stenosis with resultant chronic pulmonary hypertension and right heart failure. The patient has chronic atrial fibrillation with an indwelling leadless pacemaker that was functioning normally. Past cardiac history: 1. Rheumatic valvular heart disease status post initial mitral valve replacement 1985 with [facility] mitral valve prosthesis and tricuspid valve repair 2. Repeat mitral valve replacement with [employer] 27 mm mechanical prosthesis and repeat tricuspid valve repair, 2004 with left atrial appendage ligation 3. Chronic atrial fibrillation 4. Chronic right-sided heart failure with preserved LV ejection fraction , hepatic congestion, severe tricuspid valve stenosis 5. Status post leadless pacemaker insertion secondary to complete heart block September 2018 with [employer] Micra for asymptomatic high-degree AVB and conduction system disease 6. Left femur fracture July 2019 requiring surgical repair complicated by volume overload, anemia 7. Type 2 diabetes mellitus 8. Chronic iron deficiency anemia 9. Multiple blood antigens Anti- K, Anti- Fya, Anti-E antibodies present requiring antigen negative blood for transfusion Allergies Allergy/AdvReac Type Severity Reaction Status Date / Time mushroom Allergy Intermediate EYES Verified 05/21/22 13:33 SWELLED adhesive Allergy Mild rash Verified 05/21/22 13:33 Corticosteroids Allergy Unknown HYPOTENSION Verified 05/21/22 13:33 (Glucocorticoids) hydrocodone Allergy Unknown ON MED LIST Verified 05/21/22 13:33 levofloxacin [From Levaquin] Allergy Unknown ON MED LIST Verified 05/21/22 13:33 morphine Allergy Unknown HALLUCINATI Verified 05/21/22 13:33 ONS spironolactone Allergy Unknown Unknown Verified 05/21/22 13:33 Estrogens AdvReac Severe CHF Verified 05/21/22 13:33 lorazepam AdvReac Severe mental Verified 05/21/22 13:33 status change azithromycin AdvReac Intermediate Tachycardia Verified 05/21/22 13:33 [From Zithromax Z-Anton] /A-FIB codeine AdvReac Intermediate Shakiness Verified 05/21/22 13:33 doxycycline AdvReac Intermediate LEGS SWELL Verified 05/21/22 13:33 fluocinonide AdvReac Intermediate Tachycardia Verified 05/21/22 13:33 NSAIDS (Non-Steroidal AdvReac Intermediate HYPOTENSION Verified 05/21/22 13:33 Anti-Inflamma zolpidem [From Ambien] AdvReac Intermediate MENTAL Verified 05/21/22 13:33 STATUS CHANGE prednisone AdvReac Unknown LOW BP D/T Verified 05/21/22 13:33 FLUID SHIFT Anti-Depressents Allergy Unknown SEE COMMENT Uncoded 05/21/22 13:33 Home Medications Medication Instructions Recorded Confirmed Type metolazone 2.5 mg tablet 0 mg PO [id number] 04/06/22 05/21/22 History metoprolol succinate 25 mg 25 mg PO HS 04/06/22 05/21/22 History tablet,extended release 24 hr mirtazapine 15 mg tablet 15 mg PO HS 04/06/22 05/21/22 History multivitamin 1 tab PO DAILY 04/06/22 05/21/22 History torsemide 100 mg tablet 100 mg PO DAILY 04/06/22 05/21/22 History tramadol 50 mg tablet 50 mg PO Q6H PRN Pain 04/06/22 05/21/22 History warfarin 1 mg tablet (Jantoven) 1 mg PO .COMPLEX 05/01/22 05/21/22 History warfarin 1 mg tablet (Jantoven) 2 mg PO .COMPLEX 05/01/22 05/21/22 History acetaminophen 500 mg tablet 1,000 mg PO Q8H PRN FEVER/CHRISTIAN 05/21/22 05/21/22 History (Tylenol Extra Strength) bisacodyl 10 mg rectal suppository 10 mg RI DAILY PRN Constipation 05/21/22 05/21/22 History docusate sodium 100 mg capsule 100 mg PO BID 05/21/22 05/21/22 History enoxaparin 80 mg/0.8 mL 80 mg subcut DAILY 05/21/22 05/21/22 History subcutaneous syringe hydroxyzine HCl 25 mg tablet 25 mg PO Q6H PRN Anxiety 05/21/22 05/21/22 History insulin regular human 100 unit/mL 1 sliding scale dose subcut 05/21/22 05/21/22 History injection solution (Humulin R USEASDIRECTD Regular U-100 Insulin) lidocaine 5 % topical patch 1 patch topical DAILY 05/21/22 05/21/22 History magnesium hydroxide 2,400 mg/10 mL 30 ml PO DAILY PRN Constipation 05/21/22 05/21/22 History oral suspension (Milk Of Magnesia Concentrated) melatonin 3 mg tablet 6 mg PO HS PRN Sleep 05/21/22 05/21/22 History meloxicam 15 mg tablet 15 mg PO DAILY 05/21/22 05/21/22 History metformin 500 mg tablet,extended 500 mg PO BIDM 05/21/22 05/21/22 History release 24 hr metolazone 2.5 mg tablet 2.5 mg PO DAILY 05/21/22 05/21/22 History ondansetron 4 mg disintegrating 4 mg PO Q4H PRN NAUSEA/VOMITING 05/21/22 05/21/22 History tablet polyethylene glycol 3350 17 17 g PO QDL PRN Constipation 05/21/22 05/21/22 History gram/dose oral powder (Miralax) potassium chloride 20 mEq 40 meq PO DAILY 05/21/22 05/21/22 History tablet,extended release sennosides 8.6 mg tablet (senna) 17.2 mg PO DAILY 05/21/22 05/21/22 History sennosides 8.6 mg-docusate sodium 1 tab-cap PO QDL PRN Constipation 05/21/22 05/21/22 History 50 mg tablet (Senokot-S) spironolactone 25 mg tablet 25 mg PO BID 05/21/22 05/21/22 History tamsulosin 0.4 mg capsule 0.4 mg PO QDD 05/21/22 05/21/22 History Patient History Medical History Acute exacerbation of chronic low back pain Anemia Atrial fibrillation Avascular necrosis of bone of left hip Chronic anticoagulation Chronic cor pulmonale Chronic left hip pain Chronic SI joint pain Depression Diverticular disease DM w/o complication type II high BSG in am, but normal A1C. Takes no medications. Elevated LDH Hernia X2 Leg length discrepancy Mitral stenosis Post traumatic stress disorder Right-sided heart failure Tricuspid stenosis, acquired due to prior tricuspid valve repair Upper respiratory infection currently on abx Surgical History H/O mitral valve replacement 1985, initial MVR at [facility] ([facility]); [address] [employer] Mechanical valve; INR goal 2.5-3.5 H/O tricuspid valve repair initial - 1985; repeat TV repair 2004 H/O tympanostomy History of bilateral tubal ligation History of cardiac cath 1983, 2003, NO STENTS ROUTINE History of cardiac radiofrequency ablation for a.fib - 2003 History of endoscopic sinus surgery ATTEMPTED TO CAUTERIZE 05/14, UNABLE, PATIENT IN PAIN AND BLEEDING History of permanent cardiac pacemaker placement 2018 - placed due to complete heart block interrogated february 2020 History of placement of ear tubes History of tubal ligation S/P ORIF (open reduction internal fixation) fracture Left hip July 2019 [place] teeth removed Family History Mother , 60s Gastric cancer Father , age 65 Lung cancer Social History Smoking Status: Former smoker packs per day: 0.5; Cigarettes Per Day: 10; Hx Alcohol Use: Yes Alcohol type: beer Hx Substance Use: No Preferred Language: Cameroonian Communication Ability: Effective Electrical Design Engineer Required: No Beliefs That Will Affect Care: Spiritual marital status: Single marital status details: 1 son Current Living Situation: Alone Current Living Situation Comment: PATIENT DOES HAVE ANY FRIENDS/FAMILY. 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 All other 10 point review of systems are negative. Physical Exam Physical Exam: General: no acute distress and stated age Head: normocephalic, no masses, lesions, tenderness or abnormalities Eyes: conjunctiva are pink and non-injected, sclera clear Neck: supple, no adenopathy, no bruits, normal jugular venous pulse, no hepatojugular reflux Chest: normal shape and normal respiratory effort Lungs: clear to auscultation and percussion Cardiac Exam: - irregular rate & rhythm, no murmurs gallops or rubs -mechanical S1, normal S2 Pulses: 2(+) throughout Abdomen: abdomen soft, non-tender, no abnormal masses and no hepatosplenomegaly Musculoskeletal: no gait disturbance, no joint inflammation, no deforming arthritis Extremities: Bilateral lower extremity edema, left thigh hematoma Neuro: grossly normal exam Results & Data ([facility]) Vital Signs (Past 12 Hours) Vital Signs Temp Pulse Resp BP Pulse Ox O2 Del Method 05/22/22 13:42 36.6 C 71 16 120/67 96 05/22/22 13:26 36.7 C 71 13 115/57 L 97 05/22/22 11:39 36.6 C 73 20 124/58 L 97 05/22/22 10:45 36.6 C 72 20 112/65 97 05/22/22 09:45 36.6 C 71 18 95/71 L 95 05/22/22 08:45 36.7 C 71 19 117/55 L 100 05/22/22 08:15 36.6 C 75 19 125/56 L 98 05/22/22 08:26 Room Air 05/22/22 08:00 36.7 C 73 18 122/55 L 90 05/22/22 07:41 36.7 C 73 18 111/52 L 05/22/22 07:15 36.5 C 73 18 112/55 L 96 05/22/22 06:27 36.5 C 71 16 111/54 L 97 05/22/22 05:27 36.6 C 73 20 103/53 L 96 05/22/22 05:15 36.6 C 73 18 102/48 L 97 05/22/22 05:00 36.6 C 72 18 118/61 97 05/22/22 04:45 36.6 C 73 24 121/67 98 05/22/22 03:20 36.6 C 71 18 114/62 96 05/22/22 04:26 36.6 C 72 20 119/58 L 98 05/22/22 04:09 36.6 C 70 18 108/58 L 96 05/22/22 02:20 36.5 C 72 22 122/50 L 98 Laboratory Results Laboratory Results - last 24 hr 05/21/22 05/21/22 05/21/22 09:31 16:00 17:39 WBC RBC Hgb Hct MCV MCH MCHC RDW Std Deviation RDW Coeff of Dunia Plt Count MPV Immature Gran % (Auto) Neut % (Auto) Lymph % (Auto) Lander % (Auto) Eos % (Auto) Baso % (Auto) Neut # (Auto) Lymph # (Auto) Lander # (Auto) Eos # (Auto) Baso # (Auto) Immature Gran # (Auto) Absolute Nucleated RBC Nucleated RBC % (auto) Polychromasia Anisocytosis PT INR Sodium Potassium Chloride Carbon Dioxide Anion Gap BUN Creatinine Est Cr Clr Drug Dosing Est GFR ( Amer) Est GFR (Non-Af Amer) BUN/Creatinine Ratio Glucose POC Glucose Calcium Total Bilirubin AST ALT Alkaline Phosphatase Ammonia Troponin I High Sens Total Protein Albumin Globulin Albumin/Globulin Ratio Random Cortisol Urine Color Yellow Urine Appearance Cloudy A Urine pH 7.0 Ur Specific Boling 1.023 Urine Protein Negative Urine Glucose (UA) Negative Urine Ketones Negative Urine Blood 2+ H Urine Nitrite Negative Urine Bilirubin Negative Urine Urobilinogen Negative Ur Leukocyte Esterase 2+ H Urine WBC (Auto) >30 H Urine RBC (Auto) 5-10 H U Hyaline Cast (Auto) 1-5 U Epithel Cells (Auto) 5-10 H Urine Bacteria (Auto) Negative Nasal Screen MRSA (PCR) SARS-CoV-2, RNA, NAAT NEGATIVE Blood Type O Positive Antibody Screen POSITIVE A Antibody Identification Anti-CW Antibody ID Comment Cancelled Crossmatch See Detail 05/21/22 05/21/22 05/21/22 18:30 19:04 19:04 WBC RBC Hgb 4.7 L* Hct 14.2 L* MCV MCH MCHC RDW Std Deviation RDW Coeff of Dunia Plt Count MPV Immature Gran % (Auto) Neut % (Auto) Lymph % (Auto) Lander % (Auto) Eos % (Auto) Baso % (Auto) Neut # (Auto) Lymph # (Auto) Lander # (Auto) Eos # (Auto) Baso # (Auto) Immature Gran # (Auto) Absolute Nucleated RBC Nucleated RBC % (auto) Polychromasia Anisocytosis PT 17.4 H INR 1.7 H Sodium Potassium Chloride Carbon Dioxide Anion Gap BUN Creatinine Est Cr Clr Drug Dosing Est GFR ( Amer) Est GFR (Non-Af Amer) BUN/Creatinine Ratio Glucose POC Glucose Calcium Total Bilirubin AST ALT Alkaline Phosphatase Ammonia Troponin I High Sens Total Protein Albumin Globulin Albumin/Globulin Ratio Random Cortisol Urine Color Urine Appearance Urine pH Ur Specific Boling Urine Protein Urine Glucose (UA) Urine Ketones Urine Blood Urine Nitrite Urine Bilirubin Urine Urobilinogen Ur Leukocyte Esterase Urine WBC (Auto) Urine RBC (Auto) U Hyaline Cast (Auto) U Epithel Cells (Auto) Urine Bacteria (Auto) Nasal Screen MRSA (PCR) Negative SARS-CoV-2, RNA, NAAT Blood Type Antibody Screen Antibody Identification Antibody ID Comment Crossmatch 05/21/22 05/21/22 05/21/22 19:04 20:07 20:36 WBC RBC Hgb Hct MCV MCH MCHC RDW Std Deviation RDW Coeff of Dunia Plt Count MPV Immature Gran % (Auto) Neut % (Auto) Lymph % (Auto) Lander % (Auto) Eos % (Auto) Baso % (Auto) Neut # (Auto) Lymph # (Auto) Lander # (Auto) Eos # (Auto) Baso # (Auto) Immature Gran # (Auto) Absolute Nucleated RBC Nucleated RBC % (auto) Polychromasia Anisocytosis PT INR Sodium 123 L Potassium 6.1 H* Chloride 91 L Carbon Dioxide 24 Anion Gap 8 BUN 73 H Creatinine 1.33 H Est Cr Clr Drug Dosing 47.5 Est GFR ( Amer) 49.9 Est GFR (Non-Af Amer) 43.0 BUN/Creatinine Ratio 54.9 H Glucose 132 H POC Glucose 178 H Calcium 9.0 Total Bilirubin AST ALT Alkaline Phosphatase Ammonia Troponin I High Sens 35.2 H Total Protein Albumin Globulin Albumin/Globulin Ratio Random Cortisol Urine Color Urine Appearance Urine pH Ur Specific Boling Urine Protein Urine Glucose (UA) Urine Ketones Urine Blood Urine Nitrite Urine Bilirubin Urine Urobilinogen Ur Leukocyte Esterase Urine WBC (Auto) Urine RBC (Auto) U Hyaline Cast (Auto) U Epithel Cells (Auto) Urine Bacteria (Auto) Nasal Screen MRSA (PCR) SARS-CoV-2, RNA, NAAT Blood Type Antibody Screen Antibody Identification Antibody ID Comment Crossmatch 05/21/22 05/22/22 05/22/22 22:20 07:55 11:28 WBC RBC Hgb Hct MCV MCH MCHC RDW Std Deviation RDW Coeff of Dunia Plt Count MPV Immature Gran % (Auto) Neut % (Auto) Lymph % (Auto) Lander % (Auto) Eos % (Auto) Baso % (Auto) Neut # (Auto) Lymph # (Auto) Lander # (Auto) Eos # (Auto) Baso # (Auto) Immature Gran # (Auto) Absolute Nucleated RBC Nucleated RBC % (auto) Polychromasia Anisocytosis PT INR Sodium 124 L Potassium 5.7 H Chloride 91 L Carbon Dioxide 24 Anion Gap 9 BUN 73 H Creatinine 1.39 H Est Cr Clr Drug Dosing 45.4 Est GFR ( Amer) 47.3 Est GFR (Non-Af Amer) 40.8 BUN/Creatinine Ratio 52.5 H Glucose 126 H POC Glucose 187 H 166 H Calcium 8.6 Total Bilirubin AST ALT Alkaline Phosphatase Ammonia Troponin I High Sens Total Protein Albumin Globulin Albumin/Globulin Ratio Random Cortisol Urine Color Urine Appearance Urine pH Ur Specific Boling Urine Protein Urine Glucose (UA) Urine Ketones Urine Blood Urine Nitrite Urine Bilirubin Urine Urobilinogen Ur Leukocyte Esterase Urine WBC (Auto) Urine RBC (Auto) U Hyaline Cast (Auto) U Epithel Cells (Auto) Urine Bacteria (Auto) Nasal Screen MRSA (PCR) SARS-CoV-2, RNA, NAAT Blood Type Antibody Screen Antibody Identification Antibody ID Comment Crossmatch 05/22/22 05/22/22 05/22/22 12:29 12:29 12:29 WBC 22.70 H RBC 2.05 L Hgb 6.9 L* Hct 20.8 L* MCV 101.5 H D MCH 33.7 MCHC 33.2 RDW Std Deviation 68.8 H RDW Coeff of Dunia 21.2 H Plt Count 366 MPV 9.3 L Immature Gran % (Auto) 4.4 Neut % (Auto) 82.3 Lymph % (Auto) 3.8 Lander % (Auto) 7.7 Eos % (Auto) 1.3 Baso % (Auto) 0.5 Neut # (Auto) 18.70 H Lymph # (Auto) 0.86 L Lander # (Auto) 1.75 H Eos # (Auto) 0.29 Baso # (Auto) 0.11 Immature Gran # (Auto) 0.99 H Absolute Nucleated RBC 0.04 H Nucleated RBC % (auto) 0.2 Polychromasia 2+ Anisocytosis Present PT 14.2 H INR 1.4 H Sodium 126 L Potassium 4.8 Chloride 92 L Carbon Dioxide 25 Anion Gap 9 BUN 64 H Creatinine 1.27 H Est Cr Clr Drug Dosing 49.7 Est GFR ( Amer) 52.7 Est GFR (Non-Af Amer) 45.5 BUN/Creatinine Ratio 50.4 H Glucose 137 H POC Glucose Calcium 9.1 Total Bilirubin 2.8 H AST 86 H ALT 42 Alkaline Phosphatase 175 H Ammonia Troponin I High Sens 35.8 H Total Protein 6.8 Albumin 3.7 Globulin 3.1 Albumin/Globulin Ratio 1.2 Random Cortisol Urine Color Urine Appearance Urine pH Ur Specific Boling Urine Protein Urine Glucose (UA) Urine Ketones Urine Blood Urine Nitrite Urine Bilirubin Urine Urobilinogen Ur Leukocyte Esterase Urine WBC (Auto) Urine RBC (Auto) U Hyaline Cast (Auto) U Epithel Cells (Auto) Urine Bacteria (Auto) Nasal Screen MRSA (PCR) SARS-CoV-2, RNA, NAAT Blood Type Antibody Screen Antibody Identification Antibody ID Comment Crossmatch 05/22/22 05/22/22 12:29 12:29 WBC RBC Hgb Hct MCV MCH MCHC RDW Std Deviation RDW Coeff of Dunia Plt Count MPV Immature Gran % (Auto) Neut % (Auto) Lymph % (Auto) Lander % (Auto) Eos % (Auto) Baso % (Auto) Neut # (Auto) Lymph # (Auto) Lander # (Auto) Eos # (Auto) Baso # (Auto) Immature Gran # (Auto) Absolute Nucleated RBC Nucleated RBC % (auto) Polychromasia Anisocytosis PT INR Sodium Potassium Chloride Carbon Dioxide Anion Gap BUN Creatinine Est Cr Clr Drug Dosing Est GFR ( Amer) Est GFR (Non-Af Amer) BUN/Creatinine Ratio Glucose POC Glucose Calcium Total Bilirubin AST ALT Alkaline Phosphatase Ammonia 26.0 Troponin I High Sens Total Protein Albumin Globulin Albumin/Globulin Ratio Random Cortisol 23.71 Urine Color Urine Appearance Urine pH Ur Specific Boling Urine Protein Urine Glucose (UA) Urine Ketones Urine Blood Urine Nitrite Urine Bilirubin Urine Urobilinogen Ur Leukocyte Esterase Urine WBC (Auto) Urine RBC (Auto) U Hyaline Cast (Auto) U Epithel Cells (Auto) Urine Bacteria (Auto) Nasal Screen MRSA (PCR) SARS-CoV-2, RNA, NAAT Blood Type Antibody Screen Antibody Identification Antibody ID Comment Crossmatch Medications Administered Current Inpatient Medications Acetaminophen (Acetaminophen 500 Mg Tab) 1,000 mg PO Q8H PRN PRN Reason: FEVER/CHRISTIAN Stop: 06/20/22 18:36 Last Admin: 05/22/22 00:53 Dose: 1,000 mg Bisacodyl (Bisacodyl 10 Mg Supp) 10 mg RI DAILY PRN PRN Reason: Constipation Stop: 06/20/22 18:36 Dextrose (Dextrose 50% 50 Ml Syringe) 25 - 50 ml IV UD PRN; Protocol PRN Reason: Hypoglycemia Protocol Stop: 06/20/22 18:36 Furosemide (Furosemide Inj 20 Mg/2 Ml Vial) 20 mg IV DAILY PRN PRN Reason: w/ blood transfusion Stop: 06/21/22 08:59 Last Admin: 05/22/22 01:02 Dose: 20 mg Glucagon (Glucagon For Inj 1 Mg Vial) 1 mg SQ UD PRN; Protocol PRN Reason: Hypoglycemia Protocol Stop: 06/20/22 18:36 Glucose (Glucose 40% Gel 15 Gm Tube) 15 - 30 gm PO UD PRN; Protocol PRN Reason: Hypoglycemia Protocol Stop: 06/20/22 18:36 Glucose (Glucose 10 Tab/Tube) 4 - 8 tab PO UD PRN; Protocol PRN Reason: Hypoglycemia Treatment Stop: 06/20/22 18:36 Hydroxyzine HCl (Hydroxyzine Hcl 25 Mg Tab) 25 mg PO Q6H PRN PRN Reason: Anxiety Stop: 06/20/22 18:36 Cefepime HCl 1,000 mg/ Syringe 10 mls @ 5 mls/min IV Q12H [facility]; Protocol Stop: 05/23/22 18:59 Last Admin: 05/22/22 08:11 Dose: 5 mls/min Sodium Chloride (Nss) 250 mls @ 15 mls/hr IV .[id number] PRN PRN Reason: For Transfusion Stop: 05/22/22 22:54 Insulin Aspart (Insulin Aspart Per Unit) 0 units SC ACHS MIKIE Stop: 06/20/22 20:59 Last Admin: 05/22/22 12:14 Dose: 2 units Lidocaine (Lidocaine 5% 1 Patch) 1 patch TD DAILY MIKIE Stop: 06/21/22 08:59 Last Admin: 05/22/22 09:30 Dose: 1 patch Magnesium Hydroxide (Magnesium Hydroxide Susp 30 Ml Udc) 30 ml PO DAILY PRN PRN Reason: Constipation Stop: 06/20/22 18:36 Melatonin (Melatonin 3 Mg Tab) 6 mg PO HS PRN PRN Reason: Sleep Stop: 06/20/22 18:36 Mirtazapine (Mirtazapine Tab 15 Mg Tab) 15 mg PO HS MIKIE Stop: 06/20/22 20:59 Last Admin: 05/21/22 20:00 Dose: 15 mg Miscellaneous (Remove Lidoderm Patch) 1 each N/A DAILY@2100 [facility] Stop: 06/20/22 20:59 Last Admin: 05/21/22 19:06 Dose: 1 each Miscellaneous (Carbohydrates For Hypoglycemia ) 15 - 30 gm PO UD PRN PRN Reason: Hypoglycemia Protocol Stop: 06/20/22 18:36 Ondansetron HCl (Ondansetron Inj 2 Mg/Ml 2 Ml Vial) 4 mg IV Q6H PRN PRN Reason: Nausea Stop: 06/20/22 18:36 Last Admin: 05/22/22 03:15 Dose: 4 mg Polyethylene Glycol (Polyethylene (Miralax) 17 Gm Pack) 17 gm PO QDL PRN PRN Reason: Constipation Stop: 06/20/22 18:36 Senna/Docusate Sodium (Docusate Sodium/Senna 50/8.6mg Tab) 1 tab PO QDL PRN PRN Reason: Constipation Stop: 06/20/22 18:36 Sodium Zirconium Cyclosilicate (Sodium Zirconium Cyclosilicate 10 Gm Packet) 10 gm PO DAILY MIKIE Stop: 06/20/22 20:59 Last Admin: 05/22/22 09:30 Dose: 10 gm Tamsulosin HCl (Tamsulosin Hcl 0.4 Mg Cap) 0.4 mg PO QDD MIKIE Stop: 06/20/22 18:36 Last Admin: 05/21/22 20:00 Dose: 0.4 mg Tramadol HCl (Tramadol Hcl 50 Mg Tablet) 50 mg PO Q6H PRN PRN Reason: Pain Stop: 06/20/22 18:36 Last Admin: 05/22/22 12:11 Dose: 50 mg
--- NOTE | 2022-05-22 14:26 | XRay Report ---
AP LEFT HIP History: Left total hip arthroplasty. Degenerative arthritis. Postop. FINDINGS: The patient is status post a left total hip arthroplasty. The hardware is intact. No fractu re or dislocation. Skin drake are in place. IMPRESSION: Left total hip arthroplasty. No evidence for hardware complication. ACT 112: Negative or not required by law. Electronically signed by: Luis Schaeffer M.D. 05/22/2022 2:25 PM
[2022-05-22] MEDS ORDERED: oxyCODONE HCL IR 5 MG TAB (IMMEDIATE RELEASE) ONE (15:52)
[2022-05-22] MEDS: oxyCODONE HCL IR 5 MG TAB (IMMEDIATE RELEASE) PO PRN ×2 (15:53→22:53)
[2022-05-22] MEDS: POLYETHYLENE (MIRALAX) 17 GM PACK PO SCH (15:59)
[2022-05-22] MEDS: DOCUSATE SODIUM/SENNA 50/8.6MG TAB PO SCH (15:59)
[2022-05-22] MEDS ORDERED: METOCLOPRAMIDE HCL INJ 5 MG/ML 2 ML VIAL IV ONE (16:07)
[2022-05-22] MEDS: DAPTOmycin 350 MG in SYRINGE 0 ML IV SCH (16:12)
[2022-05-22] MEDS: TAMSULOSIN HCL 0.4 MG CAP PO SCH (17:21)
[2022-05-22 18:12] LABS: Hematocrit (blood only) 22.2 % (34.1-44.9); Hemoglobin 7.5 g/dl (12.0-16.0)
[2022-05-22] MEDS: MIRTAZAPINE TAB 15 MG TAB PO SCH (20:32)
[2022-05-22] MEDS: FUROSEMIDE 40 MG/4 ML VIAL IV SCH (20:32)
[2022-05-22] MEDS: MELATONIN 3 MG TAB PO PRN (20:32)
[2022-05-23] MEDS: ACETAMINOPHEN 500 MG TAB PO PRN (02:10)
[2022-05-23] MEDS: hydrOXYzine HCl 25 MG TAB PO PRN ×3 (02:11→21:50)
[2022-05-23 06:00] LABS: Hemoglobin 7.3 g/dl (12.0-16.0); Mean Corpuscular Hgb Conc 33.2 g/dL (32.0-36.0); Mean Corpuscular Volume 99.5 fL (80.0-100.0); Mean Platelet Volume 9.3 fL (9.4-12.3); Nucleated RBC # (auto) 0.07 K/uL (0-0); Nucleated RBC % (auto) 0.4 %; Platelet Count 345 K/uL (130-400); RDW Coefficient of Variation 22.2 % (11.5-14.5); RDW Standard Deviation 70.8 fL (36.4-46.3); Red Blood Count 2.21 M/uL (3.93-5.22); White Blood Count 18.88 K/ul (4.8-10.8)
[2022-05-23 06:17] LABS: INR 1.4 (0.9-1.1); Prothrombin Time 14.5 Seconds (9.0-12.0)
[2022-05-23 06:19] LABS: Albumin Globulin Ratio 1.2 (0.9-2); Albumin Level 3.5 gm/dl (3.4-5.0); BUN Creatinine Ratio 45.5 (10-20); Bilirubin,Total 2.4 mg/dl (0.2-1.0); Calcium 8.8 mg/dl (8.5-10.1); Est GFR (African American) 61.4 ml/min; Globulin 2.9 gm/dl (2.5-4.0); Potassium 4.2 mmol/L (3.5-5.1); Total Protein 6.4 gm/dl (6.0-8.3)
[2022-05-23 06:45] LABS: Folate (Folic Acid) 20.29 ng/ml (>5.38)
[2022-05-23] MEDS: INSULIN ASPART PER UNIT SC SCH ×4 (08:27→21:41)
[2022-05-23] MEDS: FUROSEMIDE 40 MG/4 ML VIAL IV SCH ×2 (08:33→21:48)
[2022-05-23] MEDS: LIDOCAINE 5% 1 PATCH TD SCH (08:33)
[2022-05-23] MEDS: POLYETHYLENE (MIRALAX) 17 GM PACK PO SCH (08:33)
[2022-05-23] MEDS: DOCUSATE SODIUM/SENNA 50/8.6MG TAB PO SCH (08:33)
[2022-05-23] MEDS: SODIUM ZIRCONIUM CYCLOSILICATE 10 GM PACKET PO SCH (08:34)
--- NOTE | 2022-05-23 08:45 | Orthopedic Progress Note ---
Date of Service May 23, 2022 Assessment & Plan (1) Acute blood loss anemia: Plan 62-year-old female presenting 2 weeks status post removal of left hip cannulated screws with conversion to left total hip arthroplasty performed at [facility]. She reports that while she was being transported to [facility] that she bumped her left hip and she has had swelling since that time. Upon arrival she was found to have a supratherapeutic INR. Orthopedics was asked to evaluate her surgical wounds. Her left anterior hip wound does have some granulation tissue present over the proximal aspect of the incision. There is no reese purulence. There was a superficial wound culture that was obtained at that has demonstrated no growth to date. There is no dehiscence. Thigh is otherwise soft and compressible. Lateral based incision has drake in place there is no active drainage or erythema present. At this point patient's INR has drastically improved and was 1.4 this morning. I would just recommend local wound care and conservative treatment. No further orthopedic intervention at this time. Admission and Anticipated Discharge Date Admission Date: May 21, 2022 Subjective Patient seen and examined, no acute events overnight. Pain controlled. Physical Exam Constitutional: General: No acute distress, alert and oriented person place and time Musculoskeletal: Left lower extremity -Thigh soft and compressible, there is moderate edema -Anterior hip incision is well approximated there is some granulation tissue present along the proximal aspect there is no active drainage or purulence pr esent -Lateral based incision is intact with drake in place no active drainage -Sensation intact to light touch femoral/superficial peroneal nerve/deep peroneal nerve/saphenous/tibial/sural nerve distributions -Fires tibialis anterior/extensor hallucis longus/gastrocsoleus complex -Palpable dorsalis pedis and posterior tibial pulses Results & Data ([facility]) Vital Signs (Past 12 Hours) Vital Signs Temp Pulse Pulse Pulse Resp BP Pulse Ox 05/23/22 08:00 36.8 C 78 18 109/51 L 95 05/23/22 04:50 36.9 C 82 14 100/57 L 94 05/23/22 00:00 79 05/22/22 23:22 37.0 C 80 16 116/58 L 94 O2 Del Method 05/23/22 08:00 Room Air 05/23/22 04:50 Room Air 05/23/22 00:00 05/22/22 23:22 Room Air
--- NOTE | 2022-05-23 10:46 | Cardiology Progress Note ---
Date of Service May 23, 2022 Assessment & Plan (1) Acute blood loss anemia: (2) RHF (right heart failure): (3) Atrial fibrillation: (4) UTI (urinary tract infection): Plan: (1) Acute blood loss anemia: left thigh hematoma in setting of recent left hip arthroplasty, supratherapeutic INR Presenting hemoglobin of 4.7, up to 7.3 status post transfusion of 4 units packed red blood cells INR improved post vitamin K to 1.4 Agree with plan of obtaining repeat globin this afternoon, and if stable cautiously reinitiating anticoagulation. Patient with history of mechanical mitral valve prosthesis, tricuspid valve repair with residual severe tricuspid stenosis, and is therefore at risk for both mechanical veena and e thrombosis, as well as right-sided cardiac thrombosis. Cased discussed with Dr Hung, agree with plan of starting low dose heparin infusion without loading bolus if Hgb stable this afternoon. (2) RHF (right heart failure): Continue furosemode 40 mg IV BID. Na an creatinine trending toward improvement (3) Atrial fibrillation: Resume anticoagulation when able (4) UTI (urinary tract infection): Likely enterococcus UTI, blood cultures negative. Afebrile. Agree with Daptomycin . Ortho input noted and appreciated. Admission and Anticipated Discharge Date Admission Date: May 21, 2022 Subjective Patient seen in follow up today. Denies chest pain or shortness of breath. Telemetry with underlying rate controlled atrial fibrillation and demand RV pacing. Thigh pain is controlled. Review of Systems Review of Systems: All systems reviewed & are unremarkable except as noted in HPI & below Physical Exam Constitutional: WD/WN, vitals as above Respiratory: normal respiratory effort, lungs clear to auscultation Cardiovascular: crisp prosthetic heart sounds noted. No murmur 2+ bilateral LE edema Gastrointestinal (Abdomen): normal bowel sounds, soft, nontender, no hepatosplenomegaly Neurologic: PERRL, EOMI, accommodation nl, no face palsy, no dysarthria Genitourinary: Warren catheter in place draining clear yellow urine Results & Data ([facility]) Vital Signs (Past 12 Hours) Vital Signs Temp Pulse Pulse Pulse Resp BP Pulse Ox 05/23/22 08:00 78 05/23/22 08:00 36.8 C 78 18 109/51 L 95 05/23/22 04:50 36.9 C 82 14 100/57 L 94 05/23/22 00:00 79 05/22/22 23:22 37.0 C 80 16 116/58 L 94 O2 Del Method 05/23/22 08:00 05/23/22 08:00 Room Air 05/23/22 04:50 Room Air 05/23/22 00:00 05/22/22 23:22 Room Air Laboratory Results Cardiac Enzymes 05/22/22 05/23/22 Range/Units 12:29 05:16 AST 86 H 69 H (13-39) U/L Troponin I High Sens 35.8 H (0-14) pg/ml Coagulation 05/22/22 05/23/22 Range/Units 12:29 05:16 PT 14.2 H 14.5 H (9.0-12.0) Seconds CBC 05/22/22 05/22/22 05/23/22 Range/Units 12:29 18:02 05:16 WBC 22.70 H 18.88 H (4.8-10.8) K/ul RBC 2.05 L 2.21 L (3.93-5.22) M/uL Hgb 6.9 L* 7.5 L 7.3 L (12.0-16.0) g/dl Hct 20.8 L* 22.2 L 22.0 L (34.1-44.9) % Plt Count 366 345 (130-400) K/uL Neut # (Auto) 18.70 H (1.4-6.5) K/uL Lymph # (Auto) 0.86 L (1.2-3.4) K/uL [place] # (Auto) 1.75 H (0.24-0.82) K/uL Eos # (Auto) 0.29 (0-0.50) K/uL Baso # (Auto) 0.11 (0-0.2) K/uL Comprehensive Metabolic Panel 05/22/22 05/23/22 Range/Units 12:29 05:16 Sodium 126 L 128 L (136-145) mmol/L Potassium 4.8 4.2 (3.5-5.1) mmol/L Chloride 92 L 94 L (98-107) mmol/L Carbon Dioxide 25 25 (21-32) mmol/L BUN 64 H 51 H (6-23) mg/dl Creatinine 1.27 H 1.12 (0.6-1.2) mg/dl Glucose 137 H 130 H (70-99(Fasting)) mg/dl Calcium 9.1 8.8 (8.5-10.1) mg/dl AST 86 H 69 H (13-39) U/L ALT 42 37 (7-52) U/L Alkaline Phosphatase 175 H 174 H (34-104) U/L Total Protein 6.8 6.4 (6.0-8.3) gm/dl Albumin 3.7 3.5 (3.4-5.0) gm/dl Intake and Output 05/22/22 05/23/22 05/23/22 22:59 06:59 14:59 Intake Total 227 / 1312 180 / 1312 Output Total 500 / 1500 Balance 227 / -188 -320 / -188 Intake: Oral 180 / 530 Intake (Blood Product) Amt 227 / 782 Packed Cells, Leukoreduced 2 227 / 227 Unit [id number] Output: Urine Amount (Catheter) 500 / 1500 Warren/Indwelling 500 / 1500 Other: Weight 80.3 kg 76.1 kg Weight Measurement Method Built in [facility] (1) Atrial fibrillation Atrial fibrillation type: permanent Qualified Code(s): I48.2 - Chronic atrial fibrillation
[2022-05-23] MEDS ORDERED: SODIUM CHLORIDE 0.65% NA SOLN 45 ML (OCEAN) PRN (11:32)
[2022-05-23] MEDS: oxyCODONE HCL IR 5 MG TAB (IMMEDIATE RELEASE) PO PRN ×2 (12:02→21:49)
[2022-05-23 12:51] LABS: Hematocrit (blood only) 22.2 % (34.1-44.9); Hemoglobin 7.4 g/dl (12.0-16.0)
[2022-05-23] MEDS ORDERED: Heparin IV Adult Wt-Based Low-Dose *NO* Bolus Protocol IV ONE (15:58)
[2022-05-23] MEDS ORDERED: HEPARIN SODIUM/DEXTROSE 25,000 UNITS/500 ML BAG IV SCH (16:00)
[2022-05-23] MEDS: TAMSULOSIN HCL 0.4 MG CAP PO SCH (17:09)
[2022-05-23] MEDS: DAPTOmycin 350 MG in SYRINGE 0 ML IV SCH (17:09)
--- NOTE | 2022-05-23 17:35 | Hospitalist Progress Note ---
Date of Service May 23, 2022 Assessment & Plan (1) Acute blood loss anemia: Plan: severe, 2nd to hematoma of left high in the setting of anticoagulant-induced bleeding/supratherapeutic INR. presenting Hb <5. s/p 4 units PRBCs in total since admission. there is concern she could have continued left thigh bleeding - thus, an additional unit of blood is on hold in the blood bank. H/H last pm, this am, and this afternoon all stable. as per Dr Villegas watch carefully over the next 1-2 days for a delayed transfusion reaction. she would benefit from IV Venofer while here. defer for now. b12/folate wnl. repeat cbc in am. (2) Hematoma of left thigh: Plan: severe - 15cm x 12cm x 8cm. 2nd to use of therapeutic lovenox as well as supratherapeutic INR from coumadin use. call placed to her surgical team in [place] on 05/22. Appreciate U orthopedic consult. Serial exams. Serial CBCs. Ice to left thigh as desired. Pain meds prn. x-rays with intact hardware. No surgical intervention needed at this time. (3) Anticoagulant-induced bleeding: Plan: chronic coumadin use with presenting INR of nearly 10. s/p vitamin k s/p K-centra INR now <2 coumadin on hold INR goal chronically is 2.5 to 3.[address] MV [facility] (4) Supratherapeutic INR: Plan: See above. Resolved. (5) S/P MVR (mitral valve replacement): Plan: initial replacement in 1985 re-do MVR in [address] [facility] valve INR goal 2.5 - 3.[address] Yanni Villegas in [facility] coumadin clinic pt is at high risk of clot formation on her mechanical MV. she is also at high risk of thrombus due to tricuspid stenosis, etc. thus, will cautiously resume IV heparin. orthopedics ok with resuming such. start low-dose protocol, no bolus. at 6 hours after starting the infusion check H/H. (6) Nausea: Plan: improved today. 2nd to UTI? 2nd to constipation? 2nd to pain meds? 2nd to gallstones as seen on admission CT? suspect UTI as major contributor. can't rule out other issues listed. cont prn anti-emetics cont abx for UTI bowel regimen for Rx constipation watch closely for symptoms that would suggest we are dealing with biliary tract issue since this issue is better - advance diet today. (7) Hyperkalemia: Plan: 2nd to JASMIN resolved bmp am (8) Hyponatremia: Plan: lowest Na level 123 now 128 2nd to JASMIN, diuretics, etc random cortisol level >20 making adrenal insufficiency unlikely TSH wnl bmp am (9) Acute kidney injury: Plan: Peak Cr 1.4 baseline 0.8-0.9 Cr now 1.1 cont supportive care BMP am (10) Pacemaker: Plan: H/o third-degree heart block s/p permanent pacemaker placement (11) H/O tricuspid valve repair: Plan: 2005 (12) DM2 (diabetes mellitus, type 2): Plan: Hba1c 6.1% 04/2022 pre-DM hold metformin loose novolog sliding scale control adequate (13) Elevated LFTs: Plan: at minimum is 2nd to passive congestion of liver from severe right-sided CHF could have element of actual cardiac cirrhosis LFTs today stable recent ammonia level wnl (14) Atrial fibrillation: (15) Pulmonary hypertension: Plan: severe (16) RHF (right heart failure): Plan: 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 appreciate [facility] consultation and recs cont lasix 40mg IV BID (17) Tricuspid stenosis: Plan: severe (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, but severe right-sided CHF (19) UTI (urinary tract infection): Plan: 2nd enterococcus day #2 IV daptomycin stop daptomycin change to IV ampicillin on 05/24/22 plan 7 day course of abx in total (20) Gallstones: Plan: if nausea persists and/or she develops other symptoms due to gallstones may need dedicated RUQ u/s, etc Plan PT, OT evals will be needed care d/w cardiology Admission and Anticipated Discharge Date Admission Date: May 21, 2022 Subjective resting comfortably in bed during the visit main complaint is that of left thigh pain/swelling/tightness no dyspnea tolerating clears; nausea has resolved she feels much better than previous tele overnight with a.fib/pacing no new complaints today Review of Systems Review of Systems: gen - no fevers cv - no cp, no orthopnea pulm - no cough, no dyspnea GI - no abd pain; nausea resolved; no vomiting; no bowel movement but passing flatus - rojas draining clear urine Physical Exam Physical Exam: gen - looks much better today, more clear/less confusion neck - JVD to the jaw mouth - MMM heart - RRR, s1 s2, 3-4/6 holosystolic murmur LSB lungs - scant bibasilar rales, no wheeze, no increased work of breathing abd - body wall edema, soft, NT, ND, BS+ ext - SEVERE edema left leg from the hip all the way to the foot; the left thigh is tense due to the edema; RLE edema 1+ musculo - left thigh incision covered with optifoam skin - chronic hyperpigmentation/stasis changes b/l shins psych - more awake/alert today; less confusion Results & Data Results & Data ([facility]) Vital Signs (Past 12 Hours) Vital Signs Temp Pulse Pulse Resp BP Pulse Ox O2 Del Method 05/23/22 16:00 36.6 C 84 18 113/67 99 05/23/22 11:29 37.0 C 79 18 110/67 95 Room Air 05/23/22 08:00 78 05/23/22 08:00 36.8 C 78 18 109/51 L 95 Room Air Laboratory Results Laboratory Results - last 24 hr 05/21/22 05/22/22 05/22/22 09:31 18:02 21:03 WBC RBC Hgb 7.5 L Hct 22.2 L MCV MCH MCHC RDW Std Deviation RDW Coeff of Dunia Plt Count MPV Absolute Nucleated RBC Nucleated RBC % (auto) PT INR Sodium Potassium Chloride Carbon Dioxide Anion Gap BUN Creatinine Est Cr Clr Drug Dosing Est GFR ( Amer) Est GFR (Non-Af Amer) BUN/Creatinine Ratio Glucose POC Glucose 167 H Calcium Ferritin Total Bilirubin AST ALT Alkaline Phosphatase Total Protein Albumin Globulin Albumin/Globulin Ratio Vitamin B12 Folate Blood Type O Positive Antibody Screen POSITIVE A Antibody Identification Anti-CW Antibody ID Comment Cancelled Crossmatch See Detail 05/23/22 05/23/22 05/23/22 05:16 05:16 05:16 WBC 18.88 H RBC 2.21 L Hgb 7.3 L Hct 22.0 L MCV 99.5 MCH 33.0 MCHC 33.2 RDW Std Deviation 70.8 H RDW Coeff of Dunia 22.2 H Plt Count 345 MPV 9.3 L Absolute Nucleated RBC 0.07 H Nucleated RBC % (auto) 0.4 PT 14.5 H INR 1.4 H Sodium 128 L Potassium 4.2 Chloride 94 L Carbon Dioxide 25 Anion Gap 9 BUN 51 H Creatinine 1.12 Est Cr Clr Drug Dosing 55.0 Est GFR ( Amer) 61.4 Est GFR (Non-Af Amer) 53.0 BUN/Creatinine Ratio 45.5 H Glucose 130 H POC Glucose Calcium 8.8 Ferritin Total Bilirubin 2.4 H AST 69 H ALT 37 Alkaline Phosphatase 174 H Total Protein 6.4 Albumin 3.5 Globulin 2.9 Albumin/Globulin Ratio 1.2 Vitamin B12 Folate Blood Type Antibody Screen Antibody Identification Antibody ID Comment Crossmatch 05/23/22 05/23/22 05/23/22 05:16 08:03 12:08 WBC RBC Hgb Hct MCV MCH MCHC RDW Std Deviation RDW Coeff of Dunia Plt Count MPV Absolute Nucleated RBC Nucleated RBC % (auto) PT INR Sodium Potassium Chloride Carbon Dioxide Anion Gap BUN Creatinine Est Cr Clr Drug Dosing Est GFR ( Amer) Est GFR (Non-Af Amer) BUN/Creatinine Ratio Glucose POC Glucose 160 H 146 H Calcium Ferritin Total Bilirubin AST ALT Alkaline Phosphatase Total Protein Albumin Globulin Albumin/Globulin Ratio Vitamin B12 1409 H Folate 20.29 Blood Type Antibody Screen Antibody Identification Antibody ID Comment Crossmatch 05/23/22 05/23/22 05/23/22 12:45 12:45 17:01 WBC RBC Hgb 7.4 L Hct 22.2 L MCV MCH MCHC RDW Std Deviation RDW Coeff of Dunia Plt Count MPV Absolute Nucleated RBC Nucleated RBC % (auto) PT INR Sodium Potassium Chloride Carbon Dioxide Anion Gap BUN Creatinine Est Cr Clr Drug Dosing Est GFR ( Amer) Est GFR (Non-Af Amer) BUN/Creatinine Ratio Glucose POC Glucose 148 H Calcium Ferritin 820.6 H Total Bilirubin AST ALT Alkaline Phosphatase Total Protein Albumin Globulin Albumin/Globulin Ratio Vitamin B12 Folate Blood Type Antibody Screen Antibody Identification Antibody ID Comment Crossmatch Diagnostic Findings urine culture - enterococcus, sensitive to ampicillin PG Care Time/CCT Total # of Minutes Spent Total Time Spent with Patient: Total time spent is greater than 50% in coordination of care (as documented) at patient's floor/unit and/or counseling patient: Coding Level of Care Code 23506 Subseq Hosp Care Lvl 3 Diagnoses Acute blood loss anemia D62 Hematoma of left thigh S70.12XA Anticoagulant-induced bleeding T45.7X1A; D68.9 Supratherapeutic INR R79.1 S/P MVR (mitral valve replacement) Z95.2 Nausea R11.0 Hyperkalemia E87.5 Hyponatremia E87.1 Acute kidney injury N17.9 Pacemaker Z95.0 H/O tricuspid valve repair Z98.890 DM2 (diabetes mellitus, type 2) E11.9 Elevated LFTs R79.89 Atrial fibrillation I48.2 Atrial fibrillation type: permanent Pulmonary hypertension I27.20 RHF (right heart failure) I50.810 Tricuspid stenosis I07.0 Rheumatic cardiomyopathy I09.0 UTI (urinary tract infection) N39.0 Gallstones K80.20 (1) Atrial fibrillation Atrial fibrillation type: permanent Qualified Code(s): I48.2 - Chronic atrial fibrillation
[2022-05-23] MEDS: MIRTAZAPINE TAB 15 MG TAB PO SCH (21:49)
[2022-05-23] MEDS: MELATONIN 3 MG TAB PO PRN (21:50)
[2022-05-23 22:42] LABS: Hematocrit (blood only) 21.2 % (34.1-44.9)
[2022-05-23 22:59] LABS: Partial Thromboplastin Ratio 1.6; Partial Thromboplastin Time 43.3 Seconds (21.0-31.0)
[2022-05-24 06:10] LABS: Hematocrit (blood only) 20.9 % (34.1-44.9); Hemoglobin 6.9 g/dl (12.0-16.0); Mean Corpuscular Hemoglobin 33.3 pg (25.0-34.0); Mean Platelet Volume 9.2 fL (9.4-12.3); Nucleated RBC # (auto) 0.02 K/uL (0-0); Nucleated RBC % (auto) 0.1 %; Platelet Count 307 K/uL (130-400); RDW Coefficient of Variation 22.6 % (11.5-14.5); RDW Standard Deviation 74.1 fL (36.4-46.3); Red Blood Count 2.07 M/uL (3.93-5.22)
[2022-05-24 06:15] LABS: BUN Creatinine Ratio 49.4 (10-20); Calcium 8.6 mg/dl (8.5-10.1); Creatinine Clr Calc Pharmacy 77.5 ml/min; Est GFR (African American) 93.6 ml/min; Est GFR (Non-African American) 80.8 ml/min; Magnesium 2.2 mg/dl (1.7-2.4); Potassium 4.4 mmol/L (3.5-5.1)
[2022-05-24 06:24] LABS: INR 1.6 (0.9-1.1); Partial Thromboplastin Ratio 1.7; Prothrombin Time 16.8 Seconds (9.0-12.0)
--- NOTE | 2022-05-24 06:35 | Communication Note ---
Date of Service: May 24, 2022 morning Hb 6.9. Holding heparin drip.
[2022-05-24] MEDS ORDERED: Nursing to Pharmacy Communication SCH ×2 (06:45→23:30)
[2022-05-24] MEDS: INSULIN ASPART PER UNIT SC SCH ×4 (08:41→21:02)
[2022-05-24] MEDS: DOCUSATE SODIUM/SENNA 50/8.6MG TAB PO SCH (08:47)
[2022-05-24] MEDS: SODIUM ZIRCONIUM CYCLOSILICATE 10 GM PACKET PO SCH (08:47)
[2022-05-24] MEDS: LIDOCAINE 5% 1 PATCH TD SCH (08:47)
[2022-05-24] MEDS: oxyCODONE HCL IR 5 MG TAB (IMMEDIATE RELEASE) PO PRN ×3 (08:48→22:41)
[2022-05-24] MEDS: hydrOXYzine HCl 25 MG TAB PO PRN ×3 (08:48→19:52)
[2022-05-24] MEDS: POLYETHYLENE (MIRALAX) 17 GM PACK PO SCH ×2 (08:48→19:53)
[2022-05-24] MEDS: FUROSEMIDE 40 MG/4 ML VIAL IV SCH ×2 (08:48→19:52)
--- NOTE | 2022-05-24 09:26 | Orthopedic Progress Note ---
Date of Service May 24, 2022 Assessment & Plan (1) Supratherapeutic INR: Plan Pain control Weight-bear as tolerated left lower extremity Local wound care DVT prophylaxis per primary team Medical management Diet per primary team Patient is stable from an orthopedic standpoint. Despite her hemoglobin dropping, at over 2 weeks out from the index procedure without any local bleeding or hemorrhage at the incision sites I do not think there is anything to do from a surgical standpoint at this time. Patient's edema is diffuse over the left lower extremity. I did discuss with the primary team that I would recommend conservative care and local wound care. No further orthopedic intervention at this time. We will sign off. Please call if questions. Admission and Anticipated Discharge Date Admission Date: May 21, 2022 Subjective Patient seen and examined, no acute events overnight. Heparin drip is on hold secondary to hemoglobin decreasing overnight. Physical Exam Constitutional: General: No acute distress, alert and oriented person place and time Musculoskeletal: Left lower extremity -Thigh soft and compressible, there is moderate edema -Anterior hip incision is well approximated there is some granulation tissue present along the proximal aspect there is no active drainage or purulence present -Lateral based incision is intact with drake in place no active drainage -Sensation intact to light touch femoral/superficial peroneal nerve/deep peroneal nerve/saphenous/tibial/sural nerve distributions -Fires tibialis anterior/extensor hallucis longus/gastrocsoleus complex -Palpable dorsalis pedis and posterior tibial pulses Results & Data ([facility]) Vital Signs (Past 12 Hours) Vital Signs Temp Pulse Pulse Pulse Resp BP Pulse Ox 05/24/22 08:00 77 05/24/22 07:23 36.8 C 74 18 100/70 96 05/24/22 04:10 37.1 C 70 16 102/56 L 94 05/23/22 22:25 05/24/22 00:00 72 05/23/22 22:42 37.6 C H 76 16 102/59 L 95 O2 Del Method 05/24/22 08:00 05/24/22 07:23 Room Air 05/24/22 04:10 Room Air 05/23/22 22:25 Room Air 05/24/22 00:00 05/23/22 22:42 Room Air
[2022-05-24] MEDS ORDERED: SODIUM CHLORIDE 0.9% 250 ML IV PRN (09:43)
[2022-05-24] MEDS ORDERED: diphenhydrAMINE Capsule 25 MG CAP PO SCH (10:00)
[2022-05-24] MEDS ORDERED: ACETAMINOPHEN 500 MG TAB PO SCH (10:00)
--- NOTE | 2022-05-24 10:05 | Cardiology Progress Note ---
Date of Service May 24, 2022 Assessment & Plan (1) Anemia: (2) RHF (right heart failure): (3) Atrial fibrillation: (4) UTI (urinary tract infection): Plan: [facility], [id number] Cardiology Progress Note Signed Patient:SHEREEN FRAGA Admit Date:05/21/22 MR#:[id number] Att Phy:Baljinder Hung MD Acct ID:[id number] Darshana Phy:Kassidy Robertson CRNP Date:1960 Fam Phy: Age:62 Location:4W Sex:F Room/Bed:[facility] cc: ~ *NOTICE TO RECEIVING LIBERTARIAN/AGENCY This information is strictly Confidential and protected under [place] law. [place] law prohibits you from making any further disclosure of this information unless further disclosure is expressly permitted by the written consent of the person to whom it pertains or is authorized by law. A general authorization for the release of medical or other information is not sufficient for this purpose. Hospital accepts no responsibility if the information is made available to any other person, INCLUDING THE PATIENT. Date of Service May 23, 2022 Assessment & Plan (1) Acute blood loss anemia: (2) RHF (right heart failure): (3) Atrial fibrillation: (4) UTI (urinary tract infection): Plan: (1) Acute blood loss anemia: left thigh hematoma (5 x 12 x 8 cm) in setting of recent left hip arthroplasty, supratherapeutic INR Presenting hemoglobin of 4.7, up to 7.4 status post transfusion of 4 units packed red blood cells Heparin infusion without loading bolus started pm of 05/23/22 at 1600 and Hgb tr ended down from 7.4--> 7--> 6.9 am of 05/24/22 and heparin now on hold again. Patient with history of mechanical mitral valve prosthesis, tricuspid valve repair with residual severe tricuspid stenosis, and is therefore at risk for both mechanical valve thrombosis, as well as right-sided thrombosis. As note had presented with elevated INR of nearly 10 and received vitamin K and K-Centra. Pt received 1 unit PRCs at [facility] shortly after surgery and 4 units thus far at [facility]. Planning for 6th unit , however due to antigens requires blood typed from the blood bank in [place] with noted lack of available compatible blood onsite at [place] should she required additional blood preducts. (2) RHF (right heart failure): Continue furosemide 40 mg IV BID. Na an creatinine trending toward improvement Pt notes that the 2+ LE edema is not her typical baseline with usual "dry weight" of 140 lbs, 165 lbs today. (3) Atrial fibrillation: Resume anticoagulation when able. H/o complete heart block and wireless pacemaker system. (4) UTI (urinary tract infection): Likely enterococcus UTI, blood cultures negative. Afebrile. Agree with Daptomycin . Had discuss with Dr Hung who had reviewed the case with orthopaedics. Pt obviously still with what appears to be ongoing blood loss and given her h/o mechanical MV we need to limit her time off of anticoagulation as much as possible due to risk of life threatening valve thrombosis. Agree with consideration of transfer to tertiary center, [facility], with interventional radiology capability if it becomes necessary, on site CT surgery, and blood bank capabilities not available at this institution. Patient agreeable to transfer. Admission and Anticipated Discharge Date Admission Date: May 21, 2022 Subjective Patient seen in cardiology follow up. Dr Hung of the [place] hospitalist service also at the bedside at the time of my assessment. Telemetry reveals ventricular pacing in the 70s with underlying AF (has h/o wireless RV pacemaker system). Patient sitting in bed comfortably. She is in no acute distress. Denies respiratory complaints. Ongoing bilateral LE edema. Warren catheter is in place. Physical Exam Constitutional: + ill appearing (Chronicall ill in appearance without acute distress ) Respiratory: normal respiratory effort, lungs clear to auscultation Cardiovascular: Rate/Rhythm: regular rate Heart Sounds: normal S1 and normal S2; no murmur (crisp prosthetic heart sounds noted ) Extremities: + edema (2+ LE edema ) Gastrointestinal (Abdomen): normal bowel sounds, soft, nontender, no hepatosplenomegaly Neurologic: PERRL, EOMI, accommodation nl, no face palsy, no dysarthria Results & Data ([facility]) Vital Signs (Past 12 Hours) Vital Signs Temp Pulse Pulse Pulse Resp BP Pulse Ox 05/24/22 08:00 77 05/24/22 07:23 36.8 C 74 18 100/70 96 05/24/22 04:10 37.1 C 70 16 102/56 L 94 10/15/22 22:25 05/24/22 00:00 72 05/23/22 22:42 37.6 C H 76 16 102/59 L 95 O2 Del Method 05/24/22 08:00 05/24/22 07:23 Room Air 05/24/22 04:10 Room Air 05/23/22 22:25 Room Air 05/24/22 00:00 05/23/22 22:42 Room Air Laboratory Results Coagulation 05/23/22 05/24/22 Range/Units 22:25 05:36 PT 16.8 H (9.0-12.0) Seconds APTT 43.3 H 48.0 H* (21.0-31.0) Seconds CBC 05/23/22 05/23/22 05/24/22 Range/Units 12:45 22:25 05:36 WBC 15.00 H (4.8-10.8) K/ul RBC 2.07 L (3.93-5.22) M/uL Hgb 7.4 L 7.0 L 6.9 L* (12.0-16.0) g/dl Hct 22.2 L 21.2 L 20.9 L* (34.1-44.9) % Plt Count 307 (130-400) K/uL Comprehensive Metabolic Panel 05/24/22 Range/Units 05:36 Sodium 131 L (136-145) mmol/L Potassium 4.4 (3.5-5.1) mmol/L Chloride 97 L (98-107) mmol/L Carbon Dioxide 27 (21-32) mmol/L BUN 39 H (6-23) mg/dl Creatinine 0.79 D (0.6-1.2) mg/dl Glucose 133 H (70-99(Fasting)) mg/dl Calcium 8.6 (8.5-10.1) mg/dl Intake and Output 05/23/22 05/24/22 05/24/22 22:59 06:59 14:59 Intake Total 557.067 / 998.217 441.150 / 998.217 Output Total 1200 / 2600 800 / 2600 Balance -642.933 / -1601.783 -358.850 / -1601.783 Intake: IV 37.067 / 228.217 191.150 / 228.217 Heparin Sodium/Dextrose 25,000 37.067 / 228.217 191.150 / 228.217 units In 500 ml @ 850 UNITS/HR 17 mls/hr IV .Q24H COUNT INCLUDES THE [facility] Rx#: [id number] Oral 520 / 770 250 / 770 Output: Urine Amount (Catheter) 1200 / 2600 800 / 2600 Warren/Indwelling 1200 / 2600 800 / 2600 Other: Weight 75.2 kg Weight Measurement Method Built in [facility] (1) Atrial fibrillation Atrial fibrillation type: permanent Qualified Code(s): I48.2 - Chronic atrial fibrillation
[2022-05-24] MEDS ORDERED: AMPICILLIN/SULBACTAM SOD 3,000 MG in 0.9 % SODIUM CHLORIDE 100 ML IV SCH (17:00)
[2022-05-24] MEDS: TAMSULOSIN HCL 0.4 MG CAP PO SCH (17:55)
--- NOTE | 2022-05-24 18:04 | Hospitalist Progress Note ---
Date of Service May 24, 2022 Assessment & Plan (1) Acute blood loss anemia: Plan: severe, 2nd to hematoma of left high in the setting of anticoagulant-induced bleeding/supratherapeutic INR. presenting Hb <5. s/p 4 units PRBCs in total since admission. after 24-36 hours of stability in H/H following transfusions and holding anticoagulation, attempts at low-dose heparin drip overnight led to about 0.5gm Hb drop. heparin drip stopped this am. lengthy discussions held with Dr Bello from cardiology and Dr Duncan from orthopedics this morning. CTA of the leg could be pursued but likely would be of low yield. in light of ongoing bleeding in the left thigh and worry about enlargement of her hematoma - coupled with high concern that she cannot be off anticoagulation too long due to her [employer] Mechanical MV & severe tricuspid stenosis - the t eam felt that she should be transferred to tertiary care. Tertiary care would allow IR to be available if embolization is needed, specialized orthopedics & cardiology services, etc. To that end I contacted [facility] this am. Initially spoke with Dr Asher Pandey (triage officer). Ultimately accepted in transfer by Dr Pari Hunter. Patient aware of [place] [facility] In meantime I ordered 2 units of PRBCs from [facility]; Tx 1 unit when it arrives, keep other unit on hold. Recheck H/H following PRBCs, then cbc in am. Per Dr Villegas watch carefully over the next 1-2 days for a delayed transfusion reaction. she would ultimately benefit from IV Venofer but defer at this time. b12/folate wnl. (2) Hematoma of left thigh: Plan: severe - 15cm x 12cm x 8cm at time of admission. 2nd to use of therapeutic lovenox as well as supratherapeutic INR from coumadin use. H/H trended down overnight with use of low-dose heparin infusion. see #1 above. Call placed to her surgical team in [place] on 05/22 to notify them of this event. Appreciate [facility] [place]. Serial exams. Checked circumference of mid-thigh this am - 20 inches. Serial CBCs. Ice to left thigh as desired. Pain meds prn. x-rays with intact hardware. again see #1 above re: transfer to [facility] (3) Anticoagulant-induced bleeding: Plan: chronic coumadin use with presenting INR of nearly 10. s/p vitamin k s/p K-centra INR now <2 coumadin on hold INR goal chronically is 2.5 to 3.5 [address] MV [facility] [employer] (4) Supratherapeutic INR: Plan: See above. Resolved. (5) S/P MVR (mitral valve replacement): Plan: initial replacement in 1985 re-do MVR in [address] [employer] valve INR goal 2.5 - 3.[address] Yanni Villegas in [facility] coumadin clinic pt is at high risk of clot formation on her mechanical MV. she is also at high risk of thrombus due to tricuspid stenosis, etc. cautiously attempted low-dose IV heparin infusion overnight. however, had ~0.5gm drop in hemoglobin with such. heparin stopped. see above. (6) Nausea: Plan: improved/resolved. 2nd to UTI? 2nd to constipation? 2nd to pain meds? 2nd to gallstones as seen on admission CT? suspect UTI as major contributor. can't rule out other issues listed. cont prn anti-emetics cont abx for UTI bowel regimen for Rx constipation watch closely for symptoms that would suggest we are dealing with biliary tract issue allow diet as tolerated. (7) Hyperkalemia: Plan: 2nd to JASMIN resolved bmp am (8) Hyponatremia: Plan: lowest Na level 123 now 131 2nd to JASMIN Na continues to improve with diuresis random cortisol level >20 TSH wnl bmp am (9) Acute kidney injury: Plan: Peak Cr 1.4 baseline 0.8-0.9 Cr now 0.79 with robust urine output cont supportive care BMP am (10) Pacemaker: Plan: H/o third-degree heart block s/p permanent pacemaker placement (11) H/O tricuspid valve repair: Plan: 2006 now with severe tricuspid stenosis (12) DM2 (diabetes mellitus, type 2): Plan: Hba1c 6.1% 04/2022 pre-DM hold metformin loose novolog sliding scale control adequate (13) Elevated LFTs: Plan: at minimum is 2nd to passive congestion of liver from severe right-sided CHF could have element of actual cardiac cirrhosis LFTs remain stable recent ammonia level wnl (14) Atrial fibrillation: Plan: stable, rates acceptable metoprolol succinate has been on hold due to low-normal BPs at time in the face of #1 above resume when able (15) Pulmonary hypertension: Plan: severe (16) RHF (right heart failure): Plan: 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 appreciate [facility] Cardiology consultation and recs cont lasix 40mg IV BID - tolerating such BMP am (17) Tricuspid stenosis: Plan: severe (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, but severe right-sided CHF (19) UTI (urinary tract infection): Plan: 2nd enterococcus received 2 doses of IV daptomycin changing to IV ampicillin today plan 7 day course of abx in total leukocytosis nicely improved (20) Gallstones: Plan: if nausea persists and/or she develops other symptoms due to gallstones may need dedicated RUQ u/s, etc defer for now Plan care d/w cardiology and orthopedics extensively today attempted to call pt's son Jimmy at [phone] -- no answer, unable to leave message see above regarding phone calls to [facility] total care time today - complex care coordination - 75 minutes awaiting transfer to [place] patient aware Admission and Anticipated Discharge Date Admission Date: May 21, 2022 Subjective patient didn't sleep well last night, mainly due to pain in the left thigh worst pain is near the left knee denies any dyspnea denies orthopnea or cp denies abd pain still has not had BM but passing flatus heparin drip unfortunately needed to be turned off early this am as Hb returned at 6.9 this morning (had been ~7.5 last pm) left mid-thigh circumference ~20 inches this am tele - a.fib, some pacing Review of Systems Review of Systems: gen - good appetite, no fevers CV - no chest pain, ongoing b/l edema L>R pulm - no cough GI - no further nausea; no emesis; no abd pain - rojas with clear yellow urine Physical Exam Physical Exam: gen - NAD, awake, alert, nontoxic skin - pallor; venous stasis changes b/l shins; thigh with brawny appearance; bruising near left knee; incisions x 2 proximal left thigh - superior incision with granulation at top portion of incision; serous drainage only; lateral incision clean, serous drainage also present; NO bleeding from either incision neck - JVD to the jaw unchanged mouth - MMM heart - RRR, s1 s2, 3-4/6 holosystolic murmur LSB lungs - CTA b/l abd - body wall edema, soft, NT, ND, BS+ ext - SEVERE edema left leg from the hip all the way to the foot; the left thigh is tense due to the edema; the left thigh is probably a bit more tense than yesterday; RLE edema 1+ vascular - b/l feet 2+ pulses psych - a/o x 3 Results & Data Results & Data ([facility]) Vital Signs (Past 12 Hours) Vital Signs Temp Pulse Pulse Resp BP Pulse Ox O2 Del Method 05/24/22 16:00 78 05/24/22 15:46 37.0 C 78 18 106/65 94 Room Air 05/24/22 12:24 36.9 C 80 18 109/55 L 96 Room Air 05/24/22 08:00 77 05/24/22 07:23 36.8 C 74 18 100/70 96 Room Air Laboratory Results Laboratory Results - last 24 hr 05/21/22 05/23/22 05/23/22 09:31 20:17 22:25 WBC RBC Hgb Hct MCV MCH MCHC RDW Std Deviation RDW Coeff of Dunia Plt Count MPV Absolute Nucleated RBC Nucleated RBC % (auto) PT INR APTT 43.3 H PTT Ratio 1.6 Sodium Potassium Chloride Carbon Dioxide Anion Gap BUN Creatinine Est Cr Clr Drug Dosing Est GFR ( Amer) Est GFR (Non-Af Amer) BUN/Creatinine Ratio Glucose POC Glucose 186 H Calcium Magnesium Blood Type Antibody Screen Antibody Identification Antibody ID Referred Antibody ID Comment Crossmatch See Detail 05/23/22 05/24/22 05/24/22 22:25 05:36 05:36 WBC 15.00 H RBC 2.07 L Hgb 7.0 L 6.9 L* Hct 21.2 L 20.9 L* MCV 101.0 H MCH 33.3 MCHC 33.0 RDW Std Deviation 74.1 H RDW Coeff of Dunia 22.6 H Plt Count 307 MPV 9.2 L Absolute Nucleated RBC 0.02 H Nucleated RBC % (auto) 0.1 PT INR APTT PTT Ratio Sodium 131 L Potassium 4.4 Chloride 97 L Carbon Dioxide 27 Anion Gap 7 BUN 39 H Creatinine 0.79 D Est Cr Clr Drug Dosing 77.5 Est GFR ( Amer) 93.6 Est GFR (Non-Af Amer) 80.8 BUN/Creatinine Ratio 49.4 H Glucose 133 H POC Glucose Calcium 8.6 Magnesium 2.2 Blood Type Antibody Screen Antibody Identification Antibody ID Referred Antibody ID Comment Crossmatch 05/24/22 05/24/22 05/24/22 05:36 08:00 09:54 WBC RBC Hgb Hct MCV MCH MCHC RDW Std Deviation RDW Coeff of Dunia Plt Count MPV Absolute Nucleated RBC Nucleated RBC % (auto) PT 16.8 H INR 1.6 H APTT 48.0 H* PTT Ratio 1.7 Sodium Potassium Chloride Carbon Dioxide Anion Gap BUN Creatinine Est Cr Clr Drug Dosing Est GFR ( Amer) Est GFR (Non-Af Amer) BUN/Creatinine Ratio Glucose POC Glucose 168 H Calcium Magnesium Blood Type O Positive Antibody Screen POSITIVE A Antibody Identification Pending Antibody ID Referred Antibody ID Comment Cancelled Crossmatch See Detail 05/24/22 05/24/22 05/24/22 09:54 12:07 16:28 WBC RBC Hgb Hct MCV MCH MCHC RDW Std Deviation RDW Coeff of Dunia Plt Count MPV Absolute Nucleated RBC Nucleated RBC % (auto) PT INR APTT PTT Ratio Sodium Potassium Chloride Carbon Dioxide Anion Gap BUN Creatinine Est Cr Clr Drug Dosing Est GFR ( Amer) Est GFR (Non-Af Amer) BUN/Creatinine Ratio Glucose POC Glucose 131 H 150 H Calcium Magnesium Blood Type Antibody Screen Antibody Identification Antibody ID Referred Pending Antibody ID Comment Crossmatch PG Care Time/CCT Total # of Minutes Spent Total Time Spent with Patient: Total time spent is greater than 50% in coordination of care (as documented) at patient's floor/unit and/or counseling patient: Prolonged Care Time Prolonged Care Time: Yes Total Prolonged Care Time: 75 Coding Level of Care Code 06339 Subseq Hosp Care Lvl 3 (25 - SIGNIFICANT, SEPARATELY IDENTIFIABLE ) Diagnoses Acute blood loss anemia D62 Hematoma of left thigh S70.12XA Anticoagulant-induced bleeding T45.7X1A; D68.9 Supratherapeutic INR R79.1 S/P MVR (mitral valve replacement) Z95.2 Nausea R11.0 Hyperkalemia E87.5 Hyponatremia E87.1 Acute kidney injury N17.9 Pacemaker Z95.0 H/O tricuspid valve repair Z98.890 DM2 (diabetes mellitus, type 2) E11.9 Elevated LFTs R79.89 Atrial fibrillation I48.2 Atrial fibrillation type: permanent Pulmonary hypertension I27.20 RHF (right heart failure) I50.810 Tricuspid stenosis I07.0 Rheumatic cardiomyopathy I09.0 UTI (urinary tract infection) N39.0 Gallstones K80.20 Additional Codes Prolonged Care Time - Prolonged Care Time: Yes ([id number]) (1) Atrial fibrillation Atrial fibrillation type: permanent Qualified Code(s): I48.2 - Chronic atrial fibrillation
[2022-05-24] MEDS: AMPICILLIN 2,000 MG in SODIUM CHLOR 0.9% AD-VAN 100 ML IV SCH (19:50)
[2022-05-24] MEDS: MELATONIN 3 MG TAB PO PRN (19:52)
[2022-05-24] MEDS: MIRTAZAPINE TAB 15 MG TAB PO SCH (19:55)
[2022-05-25 00:17] LABS: Hemoglobin 7.2 g/dl (12.0-16.0)
[2022-05-25] MEDS: AMPICILLIN 2,000 MG in SODIUM CHLOR 0.9% AD-VAN 100 ML IV SCH ×3 (03:28→12:55)
[2022-05-25 06:22] LABS: Hematocrit (blood only) 21.8 % (34.1-44.9); Hemoglobin 7.1 g/dl (12.0-16.0); Mean Corpuscular Hemoglobin 32.9 pg (25.0-34.0); Mean Corpuscular Hgb Conc 32.6 g/dL (32.0-36.0); Mean Corpuscular Volume 100.9 fL (80.0-100.0); Mean Platelet Volume 9.3 fL (9.4-12.3); Platelet Count 254 K/uL (130-400); RDW Coefficient of Variation 21.7 % (11.5-14.5); RDW Standard Deviation 73.5 fL (36.4-46.3); Red Blood Count 2.16 M/uL (3.93-5.22); White Blood Count 12.21 K/ul (4.8-10.8)
[2022-05-25 06:44] LABS: BUN Creatinine Ratio 54.8 (10-20); Calcium 8.5 mg/dl (8.5-10.1); Creatinine Clr Calc Pharmacy 83.7 ml/min; Est GFR (Non-African American) 88.9 ml/min; Magnesium 2.2 mg/dl (1.7-2.4); Potassium 3.8 mmol/L (3.5-5.1)
[2022-05-25] MEDS: INSULIN ASPART PER UNIT SC SCH ×3 (08:16→17:14)
[2022-05-25] MEDS: POLYETHYLENE (MIRALAX) 17 GM PACK PO SCH (08:19)
[2022-05-25] MEDS: LIDOCAINE 5% 1 PATCH TD SCH (08:19)
[2022-05-25] MEDS: SODIUM ZIRCONIUM CYCLOSILICATE 10 GM PACKET PO SCH (08:58)
[2022-05-25] MEDS: FUROSEMIDE 40 MG/4 ML VIAL IV SCH (08:58)
[2022-05-25] MEDS: DOCUSATE SODIUM/SENNA 50/8.6MG TAB PO SCH (08:58)
[2022-05-25] MEDS ORDERED: LANTUS PER UNIT CHARGE SQ SCH (09:00)
--- NOTE | 2022-05-25 10:47 | Cardiology Progress Note ---
Date of Service May 25, 2022 Assessment & Plan (1) Anemia: (2) RHF (right heart failure): (3) S/P MVR (mitral valve replacement): (4) H/O tricuspid valve repair: (5) Tricuspid stenosis: (6) Atrial fibrillation: Plan: -Hgb relatively stable at 7.1 compare to 6.9 yesterday am. -Pt received a unit of packed RBCs evening on 05/24/22 arrived at 7 pm due to prolonged cross match process -Remains on furosemide 40 mg IV BID for acute on chronic right heart failure -Heparin on hold since am of 05/24 due to worsening Hgb. -pt to be transferred to [facility] pending bed availability with onsite interventional radiology, better blood bank capabilities Admission and Anticipated Discharge Date Admission Date: May 21, 2022 Subjective Patient seen in cardiology follow up. No acute complaints. Ongoing bilateral edema, firm left thigh. Warren catheter is in place. Telemetry reveals ventricular paced rhythm at 70 bpm with underlying atrial fibrillation. Physical Exam Constitutional: + ill appearing (chronically ill in appearance, without acute distress) Respiratory: normal respiratory effort, lungs clear to auscultation Cardiovascular: Rate/Rhythm: regular rate Heart Sounds: normal S1 and normal S2; no murmur (crisp prosthetic heart valve sounds) Extremities: + edema (2+ bilateral LE edema, firm left thigh) Gastrointestinal (Abdomen): normal bowel sounds, soft, nontender, no hepatosplenomegaly Neurologic: PERRL, EOMI, accommodation nl, no face palsy, no dysarthria Results & Data ([facility]) Vital Signs (Past 12 Hours) Vital Signs Temp Pulse Resp BP Pulse Ox O2 Del Method 05/25/22 07:35 36.7 C 94 H 16 108/55 L 100 05/25/22 03:06 36.5 C 70 16 94/56 L 97 Room Air 05/24/22 23:00 36.6 C 77 14 94/55 L 94 Room Air (1) Atrial fibrillation Atrial fibrillation type: permanent Qualified Code(s): I48.2 - Chronic atrial fibrillation
[2022-05-25] MEDS ORDERED: MAGNESIUM HYDROXIDE SUSP 30 ML UDC PO ONE (11:39)
[2022-05-25 12:42] LABS: Hematocrit (blood only) 22.9 % (34.1-44.9); Hemoglobin 7.5 g/dl (12.0-16.0)
[2022-05-25] MEDS: oxyCODONE HCL IR 5 MG TAB (IMMEDIATE RELEASE) PO PRN ×2 (13:26→19:27)
[2022-05-25] MEDS: hydrOXYzine HCl 25 MG TAB PO PRN (13:26)
--- NOTE | 2022-05-25 17:43 | Discharge Summary ---
Date of Service May 25, 2022 Admission HPI Per Admitting Provider Dilma Hogan is a 62-year-old female with past medical history significant for right sided heart failure, tricuspid valve repair and mitral valve repair on warfarin, 3rd degree AV block s/p pacemaker is presenting today from [facility]. She recently had a left hip revision done at [facility] in [place], [place] on 05/08 and has since been d/c'd do [facility] for Rehab. She was previously on warfarin for her marco repairs and has been briding back to this with Lovenox. She was apparently discharged on 05/08 with a Hgb around 7.5. Her INR was checked yesterday and was reportedly 5. She had labs drawn again today to get baseline function and to monitor INR. Her hemoglobin was found to be 4.7 and INR > 9.6. She is not complaining of any chest pain, shortness of breath, weakness but does feel fatigued and notes that she did bump her left thigh and knee upon discharge from [facility] and has had mild pain there ever since. Additionally, her WBC is 24 with left shift, sodium 124, potassium 6.1, chloride 91. BUN 73, creatinine 1.42 (baseline <1.0). Magnesium slightly elevated 2.7. Her high-sensitivity troponin is 33. CT of the abdomen and pelvis reveals a 15 x 11 x 9 mm intramuscular/subcutaneous hematoma within the left anterior thigh, s/p recent left total hip arthroplasty. There is severe body wall edema. There is chronic mild gallbladder wall thickening which is unchanged from recent imaging. CXR shows pulmonary vascular congestion with trace pleural effusions. Hip CT again shows left thigh hematoma. Since arrival, her vital signs have been within normal limits and stable. BP 107/67, HR 76, RR 18, afebrile, 90% on room air. In the ED, she received vitamin K and Kcentra. Blood type and screen has been achieved for blood transfusion. She has several antibodies, therefore blood p roducts currently being transferred from [place]. Discharge Exam gen - NAD, awake, alert, nontoxic skin - pallor; venous stasis changes b/l shins; thigh with brawny appearance; bruising near left knee; incisions x 2 proximal left thigh - superior incision with granulation at top portion of incision; serous drainage only; lateral incision clean, serous drainage also present; NO bleeding from either incision neck - JVD to the jaw unchanged mouth - MMM heart - RRR, s1 s2, 3-4/6 holosystolic murmur LSB lungs - CTA b/l abd - body wall edema, soft, NT, ND, BS+ ext - SEVERE edema left leg from the hip all the way to the foot; the left thigh is tense due to the edema; the left thigh is probably a bit more tense than yesterday; RLE edema 1+ vascular - b/l feet 2+ pulses psych - a/o x 3 Discharge Data Allergies Allergy/AdvReac Type Severity Reaction Status Date / Time mushroom Allergy Intermediate EYES Verified 05/21/22 13:33 SWELLED adhesive Allergy Mild rash Verified 05/21/22 13:33 Corticosteroids Allergy Unknown HYPOTENSION Verified 05/21/22 13:33 (Glucocorticoids) hydrocodone Allergy Unknown ON MED LIST Verified 05/21/22 13:33 levofloxacin [From Levaquin] Allergy Unknown ON MED LIST Verified 05/21/22 13:33 morphine Allergy Unknown HALLUCINATI Verified 05/21/22 13:33 ONS spironolactone Allergy Unknown Unknown Verified 05/21/22 13:33 Estrogens AdvReac Severe CHF Verified 05/21/22 13:33 lorazepam AdvReac Severe mental Verified 05/21/22 13:33 status change azithromycin AdvReac Intermediate Tachycardia Verified 05/21/22 13:33 [From Zithromax Z-Anton] /A-FIB codeine AdvReac Intermediate Shakiness Verified 05/21/22 13:33 doxycycline AdvReac Intermediate LEGS SWELL Verified 05/21/22 13:33 fluocinonide AdvReac Intermediate Tachycardia Verified 05/21/22 13:33 NSAIDS (Non-Steroidal AdvReac Intermediate HYPOTENSION Verified 05/21/22 13:33 Anti-Inflamma zolpidem [From Ambien] AdvReac Intermediate MENTAL Verified 05/21/22 13:33 STATUS CHANGE prednisone AdvReac Unknown LOW BP D/T Verified 05/21/22 13:33 FLUID SHIFT Anti-Depressents Allergy Unknown SEE COMMENT Uncoded 05/21/22 13:33 Consultations 05/21/22 14:40 ED Decision to Admit Stat 05/22/22 12:07 Consult Orthopedic Surgery Routine 05/22/22 13:29 Consult Cardiology Routine 05/24/22 20:05 Burn CD for patient Routine Ordered Studies 05/21/22 09:42 CT abd pelvis IV con only Stat CT hip LT w con Stat Hospital Course (1) Acute blood loss anemia: severe, 2nd to hematoma of left high in the setting of anticoagulant-induced bleeding/supratherapeutic INR. presenting Hb <5. s/p 4 units PRBCs in total since admission. after 24-36 hours of stability in H/H following transfusions and holding anticoagulation, attempts at low-dose heparin drip overnight led to about 0.5gm Hb drop. heparin drip stopped this am. lengthy discussions held with Dr Bello from cardiology and Dr Duncan from orthopedics this morning. CTA of the leg could be pursued but likely would be of low yield. in light of ongoing bleeding in the left thigh and worry about enlargement of her hematoma - coupled with high concern that she cannot be off anticoagulation too long due to her [employer] Mechanical MV & severe tricuspid stenosis - the team felt that she should be transferred to tertiary care. Tertiary care would allow IR to be available if embolization is needed, specialized orthopedics & cardiology services, etc. To that end I contacted [facility] this am. Initially spoke with Dr Asher Pandey (triage officer). Ultimately accepted in transfer by Dr Pari Hunter. Patient aware of acceptance to [facility]. In meantime I ordered 2 units of PRBCs from [facility] [place]; Tx 1 unit when it arrives, keep other unit on hold. Recheck H/H following PRBCs, then cbc in am. Per Dr Villegas watch carefully over the next 1-2 days for a delayed transfusion reaction. she would ultimately benefit from IV Venofer but defer at this time. b12/folate wnl. (2) Hematoma of left thigh: severe - 15cm x 12cm x 8cm at time of admission. 2nd to use of therapeutic lovenox as well as supratherapeutic INR from coumadin use. H/H trended down overnight with use of low-dose heparin infusion. see #1 above. Call placed to her surgical team in [place] on 05/22 to notify them of this event. Appreciate [facility] orthopedic consult. Serial exams. Checked circumference of mid-thigh this am - 20 inches. Serial CBCs. Ice to left thigh as desired. Pain meds prn. x-rays with intact hardware. again see #1 above re: transfer to [facility]. (3) Anticoagulant-induced bleeding: chronic coumadin use with presenting INR of nearly 10. s/p vitamin k s/p K-centra INR now <2 coumadin on hold INR goal chronically is 2.5 to 3.5 [address] MV [facility] [employer] (4) Supratherapeutic INR: See above. Resolved. (5) S/P MVR (mitral valve replacement): initial replacement in 1985 re-do MVR in [address] [employer] valve INR goal 2.5 - 3.[address] Yanni Villegas in [facility] coumadin clinic pt is at high risk of clot formation on her mechanical MV. she is also at high risk of thrombus due to tricuspid stenosis, etc. cautiously attempted low-dose IV heparin infusion overnight. however, had ~0.5gm drop in hemoglobin with such. heparin stopped. see above. (6) Nausea: improved/resolved. 2nd to UTI? 2nd to constipation? 2nd to pain meds? 2nd to gallstones as seen on admission CT? suspect UTI as major contributor. can't rule out other issues listed. cont prn anti-emetics cont abx for UTI bowel regimen for Rx constipation watch closely for symptoms that would suggest we are dealing with biliary tract issue allow diet as tolerated. (7) Hyperkalemia: 2nd to JASMIN resolved bmp am (8) Hyponatremia: lowest Na level 123 now 131 2nd to JASMIN Na continues to improve with diuresis random cortisol level >20 TSH wnl bmp am (9) Acute kidney injury: Peak Cr 1.4 baseline 0.8-0.9 Cr now 0.79 with robust urine output cont supportive care BMP am (10) Pacemaker: H/o third-degree heart block s/p permanent pacemaker placement (11) H/O tricuspid valve repair: 2006 now with severe tricuspid stenosis (12) DM2 (diabetes mellitus, type 2): Hba1c 6.1% 04/2022 pre-DM hold metformin loose novolog sliding scale control adequate (13) Elevated LFTs: at minimum is 2nd to passive congestion of liver from severe right-sided CHF could have element of actual cardiac cirrhosis LFTs remain stable recent ammonia level wnl (14) Atrial fibrillation: stable, rates acceptable metoprolol succinate has been on hold due to low-normal BPs at time in the face of #1 above resume when able (15) Pulmonary hypertension: severe (16) RHF (right heart failure): 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 appreciate [facility] Cardiology consultation and recs cont lasix 40mg IV BID - tolerating such BMP am (17) Tricuspid stenosis: severe (18) Rheumatic cardiomyopathy: preserved EF, but severe right-sided CHF (19) UTI (urinary tract infection): 2nd enterococcus received 2 doses of IV daptomycin changing to IV ampicillin today plan 7 day course of abx in total leukocytosis nicely improved (20) Gallstones: if nausea persists and/or she develops other symptoms due to gallstones may need dedicated RUQ u/s, etc defer for now Plan care d/w cardiology and orthopedics extensively today attempted to call pt's son Jimmy at [phone] -- no answer, unable to leave message see above regarding phone calls to [facility] total care time today - complex care coordination - 75 minutes awaiting transfer to [place] patient aware Discharge Plan Discharge Items Patient Disposition: Transfer Acute Care Hospital Reason For Visit: SEVERE ACUTE BLOOD LOSS ANEMIA 2nd LLE HEMATOMA Discharge Diagnosis: 1. severe acute blood loss anemia s/p 5 units of PRBCs since admission 2. large left thigh hematoma 3. anticoagulant-induced bleeding (lovenox + coumadin) 4. recent left hip revision at [facility] 5. hyponatremia 6. hyperkalemia 7. JASMIN 8. abnormal LFTs 9. severe right-sided CHF 10. pulmonary HTN 11. [facility] [employer] mechanical MV on chronic coumadin 12. severe tricuspid stenosis 13. enterococcal UTI 14. nausea - resolved - 2nd to #13? 15. pacemaker status 2nd to h/o 3rd degree heart block 16. gallstones Activity: Per Instructions section Non-emergency contact: Primary Care Provider, Specialist and Tractor Trailer Technician Call non-emergency contact if: you have any medication questions Follow-up/Referrals: Kassidy Robertson CRNP [Primary Care Provider] - Diet: Carb Consistent or DM2 and Heart Healthy Fluids: 1500ml (6 cups) Addtl Attending Provider Instructions: Further instructions to follow after hospitalization at [facility]. Pending Studies at Discharge: No Stand-Alone Forms: My [facility] Skilled Items Patient informed of condition?: Yes DNR: No Discharge Level of Care: Other Communicable Disease: No Discharge Prognosis: Other Lines: Peripheral IV Urinary Catheter: Yes Medications and DC Order Prescriptions: Continued multivitamin Tablet 1 tab PO DAILY mirtazapine 15 mg tablet 15 mg PO HS sennosides [senna] 8.6 mg Tablet 17.2 mg PO DAILY sennosides-docusate sodium [Senokot-S] 8.6-50 mg Tablet 1 tab-cap PO QDL PRN (Reason: Constipation) melatonin 3 mg Tablet 6 mg PO HS PRN (Reason: Sleep) acetaminophen [Tylenol Extra Strength] 500 mg Tablet 1,000 mg PO Q8H MDD 3250 MG/24 HOURS PRN (Reason: FEVER/CHRISTIAN) tamsulosin 0.4 mg Capsule 0.4 mg PO QDD bisacodyl 10 mg Suppository 10 mg DC DAILY PRN (Reason: Constipation) lidocaine 5 % Adhesive Patch,Medicated 1 patch TOPICAL DAILY Rx Instructions: leave on most painful area for up to 12 hrs docusate sodium 100 mg Capsule 100 mg PO BID hydroxyzine HCl 25 mg Tablet 25 mg PO Q6H PRN (Reason: Anxiety) polyethylene glycol 3350 [Miralax] 17 gram/dose Powder 17 g PO QDL PRN (Reason: Constipation) ondansetron [Zofran ODT] 4 mg Tablet,Disintegrating 4 mg PO Q4H PRN (Reason: NAUSEA/VOMITING) magnesium hydroxide [Milk Of Magnesia Concentrated] 2,400 mg/10 mL Suspension 30 ml PO DAILY PRN (Reason: Constipation) Discontinued metolazone 2.5 mg Tablet 0 mg PO 3XWK Rx Instructions: START 05/22/22. TAKES MON, WED, & FRI. GIVE 30 MINUTES PRIOR TO TORSEMIDE. tramadol 50 mg tablet 50 mg PO Q6H PRN (Reason: Pain) Rx Instructions: PER PATIENT torsemide 100 mg tablet 100 mg PO DAILY metoprolol succinate 25 mg tablet extended release 24 hr 25 mg PO HS warfarin [Jantoven] 1 mg tablet 2 mg PO .COMPLEX Rx Instructions: ON HOLD SINCE 05/19/22 PER [facility]. NOT LISTED ON MED LIST. 2 mg orally M W ; warfarin [Jantoven] 1 mg tablet 1 mg PO .COMPLEX Rx Instructions: ON HOLD SINCE 05/19/22 PER [facility]. NOT ON MED LIST. 1 mg orally Sun, Tues, Lori, Sat; metolazone 2.5 mg Tablet 2.5 mg PO DAILY meloxicam 15 mg Tablet 15 mg PO DAILY Humulin R Regular U-100 Insuln 100 unit/mL Solution 1 sliding scale dose SUBCUT USEASDIRECTD metformin 500 mg Tablet Extended Release 24 Hr 500 mg PO BIDM enoxaparin 80 mg/0.8 mL syringe 80 mg subcut DAILY Rx Instructions: STARTED 05/18/22 FOR 5 DAYS PER EXT MED HX. potassium chloride 20 mEq Tablet Extended Release 40 meq PO DAILY spironolactone 25 mg tablet 25 mg PO BID Discharge Orders: Discharge Order (Routine); Ordered 05/25/22 Ordered By: Baljinder Hung Admission Data Admit Date/Time: 05/21/22 14:44 Attending Provider: Baljinder Hung Admit Provider: Robert Mcgill Primary Care Provider: Kassidy Robertson Other Providers: Robert Mcgill ; John Cheatham ; Manny Michaels ; [facility] Coding Diagnoses Acute blood loss anemia D62 Hematoma of left thigh S70.12XA Anticoagulant-induced bleeding T45.7X1A; D68.9 Supratherapeutic INR R79.1 S/P MVR (mitral valve replacement) Z95.2 Nausea R11.0 Hyperkalemia E87.5 Hyponatremia E87.1 Acute kidney injury N17.9 Pacemaker Z95.0 H/O tricuspid valve repair Z98.890 DM2 (diabetes mellitus, type 2) E11.9 Elevated LFTs R79.89 Atrial fibrillation I48.2 Atrial fibrillation type: permanent Pulmonary hypertension I27.20 RHF (right heart failure) I50.810 Tricuspid stenosis I07.0 Rheumatic cardiomyopathy I09.0 UTI (urinary tract infection) N39.0 Gallstones K80.20
[2022-05-25] MEDS: TAMSULOSIN HCL 0.4 MG CAP PO SCH (17:46)
== END 2022-05-25 20:18 | disposition short-term general hospital (02) | DRG 813 ==
LOC: ED 08:54 → 1E 14:44 → SUATTDRO 14:44 → 1E 16:56 → 4W 05-22 18:43
DX: D68.32 Hemorrhagic disorder due to extrinsic circulating anticoagulants; E87.5 Hyperkalemia; R79.89 Other specified abnormal findings of blood chemistry; Z87.891 Personal history of nicotine dependence; B95.2 Enterococcus as the cause of diseases classified elsewhere; M79.81 Nontraumatic hematoma of soft tissue; I07.1 Rheumatic tricuspid insufficiency; Z96.642 Presence of left artificial hip joint; T45.515A Adverse effect of anticoagulants, initial encounter; Y92.89 Other specified places as the place of occurrence of the external cause; I48.21 Permanent atrial fibrillation; N17.9 Acute kidney failure, unspecified; I27.20 Pulmonary hypertension, unspecified; I50.810 Right heart failure, unspecified; I09.0 Rheumatic myocarditis; Z88.5 Allergy status to narcotic agent; Z88.1 Allergy status to other antibiotic agents; N39.0 Urinary tract infection, site not specified; E11.9 Type 2 diabetes mellitus without complications; Z95.2 Presence of prosthetic heart valve; D62 Acute posthemorrhagic anemia; Z79.01 Long term (current) use of anticoagulants; E87.1 Hypo-osmolality and hyponatremia; Z95.0 Presence of cardiac pacemaker; I44.2 Atrioventricular block, complete; Z88.6 Allergy status to analgesic agent; Z79.4 Long term (current) use of insulin; Z98.890 Other specified postprocedural states

== ENCOUNTER 2022-07-03 12:42 | Inpatient (IN) ==
[2022-07-03] MEDS ORDERED: SODIUM CHLORIDE 0.9% 500 ML IV STA (13:26)
--- NOTE | 2022-07-03 13:28 | Emergency Department Note ---
Impression & Plan Wound infection ADMIT ED Provider Note HPI: The patient is a 62-year-old female with history of atrial fibrillation, mitral valve replacement, on Coumadin, who presents the emergency department with a chief complaint of left hip erythema, and "fluid" draining from previous surgical site. Patient states she is also noted some increasing edema in the bilateral lower extremities. Patient states that she had a left total hip arthroplasty performed in late April at [facility] in [place], this was complicated several weeks later by hematoma formation in the left anterior thigh it is unclear whether or not it was related to her surgery, patient did require blood transfusion and Kcentra at that time as her hemoglobin was low. Patient states over the past week she is noted increased swelling and pain in the area of her L hip and L anterior/lateral thigh area. She has had some serosanguineous type drainage from the area as well. Patient did contact her orthopedic surgeon at [facility] in [place] via the patient portal, her symptoms were discussed several days ago with the on-call physician financial legal assistant patient was placed on Keflex. Patient states over the past several days her redness and swelling in the area of the left hip has worsened and patient therefore presented to the ED today for further assessment. On arrival to the ED the patient is hemodynamically stable, she is in no acute distress on my initial evaluation. ROS: -Skin: Left hip cellulitis, drainage, wound dehiscence *10 point review systems was conducted and is otherwise negative unless stated above *Outpatient medications and allergy history reviewed PE: General: Alert HEENT: Normocephalic, trachea midline Eyes: Extraocular eye movement is intact, no scleral erythema Pulmonary: Clear to auscultation bilaterally, no wheezing Cardio: Regular rate and rhythm GI: Abdomen is soft, nontender : No suprapubic tenderness MSK: No evidence of trauma or malformation of the extremities, no edema Skin: There is erythema and edema surrounding an area of wound dehiscence in the left proximal and anterior thigh, there is some fluctuance with serosanguineous drainage just distal to the area of wound dehiscence that measures several centimeters in length with some purulence overlying the open wound Neuro: Alert, no focal deficits Psychiatric: Cooperative quality assurance monitor chassis: - An order was placed for continuous cardiac monitoring - Patient was noted to be in paced rhythm with a rate of 70 EKG: Rate: 71 Rhythm: Paced rhythm Intervals: QRS 200 ms, QTC [address] changes: No ST elevation Time: 1636 Interventions provided in ED: -IV vancomycin, IV Zosyn, oral potassium, IV fluid bolus Medical Decision Making: Patient presented to the emergency department with some lower extremity edema bilaterally, she has had increased edema/swelling/erythema with some serosanguineous type drainage to the area of the left anterior and proximal th igh where she did previously have a total hip arthroplasty performed in April by Dr. Ac at [facility]. Patient later tells me that she had to have her procedure done at a tertiary care facility secondary to her complex medical issues and this is why she traveled to [place] to have her hip replaced. On arrival here to the ED the patient is hemodynamically stable, she is afebrile, IV was established and lab work obtained, patient was placed on director of cardiac cath lab. CT imaging of the left hip was obtained that shows evidence of a fluid collection underlying the area of concern where she is having some wound dehiscence, this does show a multiloculated fluid collection that measures approximately 13 cm in length, no evidence of any gas formation. Blood cultures were drawn in the ED, patient was treated with IV vancomycin and IV Zosyn. I did discuss the case with the on-call orthopedic provider at [facility], Dr. Meza, who stated that they would be happy to evaluate the patient, given her multiple comorbidities, cellulitis, and hypokalemia she is determined appropriate for medicine admission with orthopedic consultation. I did receive a call back from the [facility] transfer center stating that the hospitalist service at [facility] is unable to accept the transfer tonight for multiple reasons, the main facility for transfer does not have surgical coverage from an orthopedic standpoint over the weekend, the second facility in the area was unable to accept the patient for transfer secondary to lack of administrative approval which will not be available reportedly until tomorrow morning according to the transfer center. Patient will remain in the transfer queue with plan for transfer tomorrow when this issue is resolved. Given the patient's overall stability, IV antibiotics were initiated in the ED, I did discuss the patient's case with on-call orthopedics, Dr. Berman, he is in agreement for routine consultation to evaluate the patient and review of CT imaging. He is in agreement that should this require surgical intervention patient should see her original surgical team at [facility]. Patient was in agreement to this plan as well. Her lab work otherwise shows evidence of hypokalemia, this was repleted orally, patient refused any IV repletion. Of note, EKG does show a paced rhythm, patient was noted to have a wide-complex on the monitor at times when there was failure to capture, Medtro richard rep was consulted following interrogation, this is the patient's intrinsic rhythm, no evidence of arrhythmia. Magnesium is within normal limits, troponin is trending down from previous troponin levels. Patient denies any chest pain or shortness of breath. [facility] until the patient has a bed available for transfer tomorrow. Diagnosis: 1. Cellulitis of the left lower extremity, acute 2. Wound dehiscence to left lower extremity, acute on chronic 3. Multiloculated fluid collection on CT imaging to left lower extremity 4. Hypokalemia, acute 5. Chronic anemia, stable Disposition: Admission Michael Roberson DO Emergency Medicine Past Med/Surg History Medical History (Updated 07/03/22 @ 19:49 by Michael Roberson DO) Acute blood loss anemia Acute exacerbation of chronic low back pain Acute kidney injury Anemia Anticoagulant-induced bleeding Atrial fibrillation Avascular necrosis of bone of left hip Chronic anticoagulation Chronic cor pulmonale Chronic left hip pain Chronic SI joint pain Depression Diverticular disease DM w/o complication type II high BSG in am, but normal A1C. Takes no medications. DM2 (diabetes mellitus, type 2) Elevated LDH Elevated LFTs Gallstones Hematoma of left thigh Hernia X2 Hyperkalemia Hyponatremia Hyponatremia Leg length discrepancy Mitral stenosis Nausea Pacemaker Post traumatic stress disorder Pulmonary hypertension Rheumatic cardiomyopathy RHF (right heart failure) Right-sided heart failure Supratherapeutic INR Tricuspid stenosis Tricuspid stenosis, acquired due to prior tricuspid valve repair Upper respiratory infection currently on abx UTI (urinary tract infection) Surgical History (Updated 06/01/22 @ 00:08 by Chad Pinto) H/O mitral valve replacement 1985, initial MVR at [facility] [address] [facility] [employer] Mechanical valve; INR goal 2.5-3.5 H/O tricuspid valve repair H/O tricuspid valve repair initial - 1985; repeat TV repair 2004 H/O tricuspid valve repair H/O tympanostomy History of bilateral tubal ligation History of cardiac cath 1983, 2003, NO STENTS ROUTINE History of cardiac radiofrequency ablation for a.fib - 2003 History of endoscopic sinus surgery ATTEMPTED TO CAUTERIZE 05/14, UNABLE, PATIENT IN PAIN AND BLEEDING History of permanent cardiac pacemaker placement 2018 - placed due to complete heart block interrogated february 2020 History of placement of ear tubes History of tubal ligation S/P MVR (mitral valve replacement) S/P ORIF (open reduction internal fixation) fracture Left hip July 2019 [place] teeth removed Family History Mother , 60s Gastric cancer Father , age 65 Lung cancer Social History Smoking Status: Never smoker packs per day: 0.5; Cigarettes Per Day: 10; Hx Alcohol Use: Yes Alcohol type: beer Hx Substance Use: No Preferred Language: Sudanese Communication Ability: Effective Shake Packer Required: No Beliefs That Will Affect Care: Spiritual marital status: marital status details: 1 son Current Living Situation: Alone Current Living Situation Comment: PATIENT DOES HAVE ANY FRIENDS/FAMILY. 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 Feels Safe at Home: Yes Assistive Devices: Walker and Wheelchair Allergies Allergies Allergy/AdvReac Type Severity Reaction Status Date / Time mushroom Allergy Intermediate EYES Verified 05/21/22 13:33 SWELLED adhesive Allergy Mild rash Verified 05/21/22 13:33 Corticosteroids Allergy Unknown HYPOTENSION Verified 05/21/22 13:33 (Glucocorticoids) hydrocodone Allergy Unknown ON MED LIST Verified 05/21/22 13:33 levofloxacin [From Levaquin] Allergy Unknown ON MED LIST Verified 05/21/22 13:33 morphine Allergy Unknown HALLUCINATI Verified 05/21/22 13:33 ONS spironolactone Allergy Unknown Unknown Verified 05/21/22 13:33 Estrogens AdvReac Severe CHF Verified 05/21/22 13:33 lorazepam AdvReac Severe mental Verified 05/21/22 13:33 status change azithromycin AdvReac Intermediate Tachycardia Verified 05/21/22 13:33 [From Zithromax Z-Anton] /A-FIB codeine AdvReac Intermediate Shakiness Verified 05/21/22 13:33 doxycycline AdvReac Intermediate LEGS SWELL Verified 05/21/22 13:33 fluocinonide AdvReac Intermediate Tachycardia Verified 05/21/22 13:33 NSAIDS (Non-Steroidal AdvReac Intermediate HYPOTENSION Verified 05/21/22 13:33 Anti-Inflamma zolpidem [From Ambien] AdvReac Intermediate MENTAL Verified 05/21/22 13:33 STATUS CHANGE prednisone AdvReac Unknown LOW BP D/T Verified 05/21/22 13:33 FLUID SHIFT Anti-Depressents Allergy Unknown SEE COMMENT Uncoded 05/21/22 13:33 Home Meds Home Medications Medication Instructions Recorded Confirmed mirtazapine 15 mg tablet 15 mg PO HS 04/06/22 05/21/22 multivitamin 1 tab PO DAILY 04/06/22 05/21/22 acetaminophen 500 mg tablet 1,000 mg PO Q8H PRN FEVER/CHRISTIAN 05/21/22 05/21/22 (Tylenol Extra Strength) bisacodyl 10 mg rectal suppository 10 mg AZ DAILY PRN Constipation 05/21/22 05/21/22 docusate sodium 100 mg capsule 100 mg PO BID 05/21/22 05/21/22 hydroxyzine HCl 25 mg tablet 25 mg PO Q6H PRN Anxiety 05/21/22 05/21/22 lidocaine 5 % topical patch 1 patch topical DAILY 05/21/22 05/21/22 magnesium hydroxide 2,400 mg/10 mL 30 ml PO DAILY PRN Constipation 05/21/22 05/21/22 oral suspension (Milk Of Magnesia Concentrated) melatonin 3 mg tablet 6 mg PO HS PRN Sleep 05/21/22 05/21/22 ondansetron 4 mg disintegrating 4 mg PO Q4H PRN NAUSEA/VOMITING 05/21/22 05/21/22 tablet polyethylene glycol 3350 17 17 g PO QDL PRN Constipation 05/21/22 05/21/22 gram/dose oral powder (Miralax) sennosides 8.6 mg tablet (senna) 17.2 mg PO DAILY 05/21/22 05/21/22 sennosides 8.6 mg-docusate sodium 1 tab-cap PO QDL PRN Constipation 05/21/22 05/21/22 50 mg tablet (Senokot-S) tamsulosin 0.4 mg capsule 0.4 mg PO QDD 05/21/22 05/21/22 Results & Data (ED) Vital Signs Vital Signs - 24 hr 07/03/22 12:56 07/03/22 14:45 07/03/22 18:05 Temperature 36.7 C 36.8 C Temperature Source Oral Oral Pulse Rate 87 96 H Pulse Rate [Apical] 70 Pulse Rate from SpO2 Sensor Respiratory Rate 20 18 18 Respiratory Effort / Characteristics Non-Labored Spontaneous Respiratory Depth Normal Respiratory Pattern Regular Blood Pressure 124/67 Blood Pressure [Left Arm] 118/70 Blood Pressure Mean 86 Blood Pressure Mean [Left Arm] 86 Blood Pressure Position Sitting Pulse Oximetry 95 96 96 Oxygen Delivery Method Room Air Room Air Sepsis Recent Fever Within 48 Hours No Sepsis New/Unexplained Change in Mental Status No Sepsis Action Taken by Nursing No Action Required 07/03/22 14:41 07/03/22 14:41 07/03/22 15:00 Temperature Temperature Source Pulse Rate 70 Pulse Rate [Apical] Pulse Rate from SpO2 Sensor 71 Respiratory Rate 23 Respiratory Effort / Characteristics Respiratory Depth Respiratory Pattern Blood Pressure 115/62 123/65 Blood Pressure [Left Arm] Blood Pressure Mean 79 84 Blood Pressure Mean [Left Arm] Blood Pressure Position Pulse Oximetry 97 Oxygen Delivery Method Sepsis Recent Fever Within 48 Hours Sepsis New/Unexplained Change in Mental Status Sepsis Action Taken by Nursing 07/03/22 15:00 07/03/22 15:30 07/03/22 15:30 Temperature Temperature Source Pulse Rate 74 74 Pulse Rate [Apical] Pulse Rate from SpO2 Sensor Respiratory Rate 20 18 Respiratory Effort / Characteristics Respiratory Depth Respiratory Pattern Blood Pressure 107/56 L Blood Pressure [Left Arm] Blood Pressure Mean 73 Blood Pressure Mean [Left Arm] Blood Pressure Position Pulse Oximetry Oxygen Delivery Method Sepsis Recent Fever Within 48 Hours Sepsis New/Unexplained Change in Mental Status Sepsis Action Taken by Nursing 07/03/22 16:00 07/03/22 16:00 07/03/22 16:30 Temperature Temperature Source Pulse Rate 74 Pulse Rate [Apical] Pulse Rate from SpO2 Sensor Respiratory Rate 30 H Respiratory Effort / Characteristics Respiratory Depth Respiratory Pattern Blood Pressure 122/58 L 119/60 Blood Pressure [Left Arm] Blood Pressure Mean 79 79 Blood Pressure Mean [Left Arm] Blood Pressure Position Pulse Oximetry Oxygen Delivery Method Sepsis Recent Fever Within 48 Hours Sepsis New/Unexplained Change in Mental Status Sepsis Action Taken by Nursing 07/03/22 16:30 07/03/22 17:00 07/03/22 17:00 Temperature Temperature Source Pulse Rate 71 73 Pulse Rate [Apical] Pulse Rate from SpO2 Sensor Respiratory Rate 16 21 Respiratory Effort / Characteristics Respiratory Depth Respiratory Pattern Blood Pressure 107/63 Blood Pressure [Left Arm] Blood Pressure Mean 77 Blood Pressure Mean [Left Arm] Blood Pressure Position Pulse Oximetry Oxygen Delivery Method Sepsis Recent Fever Within 48 Hours Sepsis New/Unexplained Change in Mental Status Sepsis Action Taken by Nursing 07/03/22 17:30 07/03/22 17:30 07/03/22 18:00 Temperature Temperature Source Pulse Rate 70 Pulse Rate [Apical] Pulse Rate from SpO2 Sensor Respiratory Rate 27 H Respiratory Effort / Characteristics Respiratory Depth Respiratory Pattern Blood Pressure 127/66 116/67 Blood Pressure [Left Arm] Blood Pressure Mean 86 83 Blood Pressure Mean [Left Arm] Blood Pressure Position Pulse Oximetry Oxygen Delivery Method Sepsis Recent Fever Within 48 Hours Sepsis New/Unexplained Change in Mental Status Sepsis Action Taken by Nursing 07/03/22 18:00 07/03/22 18:38 Temperature Temperature Source Pulse Rate 73 71 Pulse Rate [Apical] Pulse Rate from SpO2 Sensor 71 Respiratory Rate 22 25 H Respiratory Effort / Characteristics Respiratory Depth Respiratory Pattern Blood Pressure Blood Pressure [Left Arm] Blood Pressure Mean Blood Pressure Mean [Left Arm] Blood Pressure Position Pulse Oximetry 96 Oxygen Delivery Method Sepsis Recent Fever Within 48 Hours Sepsis New/Unexplained Change in Mental Status Sepsis Action Taken by Nursing Laboratory Data Result diagrams: 07/03/22 13:30 07/03/22 13:30 Lab Results 07/03/22 07/03/22 07/03/22 Range/Units 13:30 13:30 13:30 WBC 9.47 (4.8-10.8) K/ul RBC 2.67 L (3.93-5.22) M/uL Hgb 9.2 L (12.0-16.0) g/dl Hct 27.8 L (34.1-44.9) % MCV 104.1 H (80.0-100.0) fL MCH 34.5 H (25.0-34.0) pg MCHC 33.1 (32.0-36.0) g/dL RDW Std Deviation 62.2 H (36.4-46.3) fL RDW Coeff of Dunia 16.2 H (11.5-14.5) % Plt Count 301 (130-400) K/uL MPV 8.9 L (9.4-12.3) fL Immature Gran % (Auto) 0.5 % Neut % (Auto) 86.1 % Lymph % (Auto) 3.8 % Lander % (Auto) 7.7 % Eos % (Auto) 1.3 % Baso % (Auto) 0.6 % Neut # (Auto) 8.15 H (1.4-6.5) K/uL Lymph # (Auto) 0.36 L (1.2-3.4) K/uL Lander # (Auto) 0.73 (0.24-0.82) K/uL Eos # (Auto) 0.12 (0-0.50) K/uL Baso # (Auto) 0.06 (0-0.2) K/uL Immature Gran # (Auto) 0.05 H (0.00-0.02) K/uL PT 19.3 H (9.0-12.0) Seconds INR 1.9 H (0.9-1.1) Sodium 131 L (136-145) mmol/L Potassium 2.5 L* (3.5-5.1) mmol/L Chloride 94 L (98-107) mmol/L Carbon Dioxide 28 (21-32) mmol/L Anion Gap 9 (3-11) BUN 41 H (6-23) mg/dl Creatinine 1.01 (0.6-1.2) mg/dl Est Cr Clr Drug Dosing 61.5 ml/min Est GFR ( Amer) 69.6 ml/min Est GFR (Non-Af Amer) 60.0 ml/min BUN/Creatinine Ratio 40.6 H (10-20) Glucose 123 H (70-99(Fasting)) mg/dl Calcium 9.2 (8.5-10.1) mg/dl Magnesium (1.7-2.4) mg/dl Total Bilirubin 1.3 H (0.2-1.0) mg/dl AST 22 (13-39) U/L ALT 12 (7-52) U/L Alkaline Phosphatase 166 H (34-104) U/L Troponin I High Sens (0-14) pg/ml Total Protein 8.1 (6.0-8.3) gm/dl Albumin 4.1 (3.4-5.0) gm/dl Globulin 4.0 (2.5-4.0) gm/dl Albumin/Globulin Ratio 1.0 (0.9-2) Lipase 23 (11-82) U/L SARS-CoV-2, RNA, NAAT (NEGATIVE) 07/03/22 07/03/22 Range/Units 16:38 16:45 WBC (4.8-10.8) K/ul RBC (3.93-5.22) M/uL Hgb (12.0-16.0) g/dl Hct (34.1-44.9) % MCV (80.0-100.0) fL MCH (25.0-34.0) pg MCHC (32.0-36.0) g/dL RDW Std Deviation (36.4-46.3) fL RDW Coeff of Dunia (11.5-14.5) % Plt Count (130-400) K/uL MPV (9.4-12.3) fL Immature Gran % (Auto) % Neut % (Auto) % Lymph % (Auto) % Lander % (Auto) % Eos % (Auto) % Baso % (Auto) % Neut # (Auto) (1.4-6.5) K/uL Lymph # (Auto) (1.2-3.4) K/uL Lander # (Auto) (0.24-0.82) K/uL Eos # (Auto) (0-0.50) K/uL Baso # (Auto) (0-0.2) K/uL Immature Gran # (Auto) (0.00-0.02) K/uL PT (9.0-12.0) Seconds INR (0.9-1.1) Sodium (136-145) mmol/L Potassium (3.5-5.1) mmol/L Chloride (98-107) mmol/L Carbon Dioxide (21-32) mmol/L Anion Gap (3-11) BUN (6-23) mg/dl Creatinine (0.6-1.2) mg/dl Est Cr Clr Drug Dosing ml/min Est GFR ( Amer) ml/min Est GFR (Non-Af Amer) ml/min BUN/Creatinine Ratio (10-20) Glucose (70-99(Fasting)) mg/dl Calcium (8.5-10.1) mg/dl Magnesium 2.2 (1.7-2.4) mg/dl Total Bilirubin (0.2-1.0) mg/dl AST (13-39) U/L ALT (7-52) U/L Alkaline Phosphatase (34-104) U/L Troponin I High Sens 23.9 H D (0-14) pg/ml Total Protein (6.0-8.3) gm/dl Albumin (3.4-5.0) gm/dl Globulin (2.5-4.0) gm/dl Albumin/Globulin Ratio (0.9-2) Lipase (11-82) U/L SARS-CoV-2, RNA, NAAT NEGATIVE (NEGATIVE) Administered Medications Vancomycin HCl 1,500 mg/ (Sodium Chloride) 530 mls @ 200 mls/hr IV NOW ONE Stop: 07/03/22 19:57 Last Admin: 07/03/22 19:33 Dose: 200 mls/hr Documented By: TALITA Discontinued Medications Sodium Chloride (Nss) 500 mls @ 999 mls/hr IV .Q31M STA Stop: 07/03/22 13:56 Last Infusion: 07/03/22 14:08 Dose: 0 mls/hr Documented By: Admin: 07/03/22 13:39 Dose: 999 mls/hr Documented By: KATHERINE Magnesium Sulfate/Dextrose (Magnesium Sulfate / D5w) 1 gm in 100 mls @ 200 mls/hr IV Q30M MIKIE Stop: 07/03/22 17:21 Last Infusion: 07/03/22 18:20 Dose: 0 mls/hr Documented By: Admin: 07/03/22 17:49 Dose: 200 mls/hr Documented By: Infusion: 07/03/22 17:47 Dose: 0 mls/hr Documented By: Admin: 07/03/22 17:15 Dose: 200 mls/hr Documented By: KATHERINE Potassium Chloride (K Matheus / Wtr) 10 meq in 100 mls @ 100 mls/hr IV Q1H [facility]; Protocol Stop: 07/03/22 18:29 Last Admin: 07/03/22 19:33 Dose: Not Given Documented By: Admin: 07/03/22 18:20 Dose: Not Given Documented By: KATHERINE Piperacillin Sod/Tazobactam Sod (Zosyn) 4.5 gm in 120 mls @ 240 mls/hr IV NOW ONE Stop: 07/03/22 17:48 Last Infusion: 07/03/22 19:34 Dose: 0 mls/hr Documented By: Admin: 07/03/22 18:43 Dose: 240 mls/hr Documented By: KATHERINE Ioversol (Optiray 350 100ml) 85 ml IV ONCE ONE Stop: 07/03/22 14:31 Last Admin: 07/03/22 14:30 Dose: 85 ml Documented By: MADELINE Potassium Chloride (Potassium Chloride Crtab 20 Meq Tabcr) 40 meq PO NOW STA Stop: 07/03/22 14:37 Last Admin: 07/03/22 14:56 Dose: 40 meq Documented By: KATHERINE Imaging Data Radiologist's Impression: Hip CT 07/03/22 13:26 CT hip LT w con HISTORY: 62 years-old Female L hip erythema, eval for abscess acute left-sided hip pain with infection and possible abscess COMPARISON: Left hip radiographs 05/22/2022, left hip CT 05/21/2022 TECHNIQUE: Multiple axial CT images of the left hip were obtained following the intravenous administration of 85 mL Optiray 350. A dose lowering technique was used consistent with the principals of KYLIE. FINDINGS: Left hip total joint arthroplasty demonstrates satisfactory alignment. Screw tracts are noted within the greater trochanter. No acute fracture, dislocation or evidence of hardware complication. No suspicious bone lesions. Moderate subcutaneous edema of the bilateral upper thighs. Multiloculated peripherally enhancing fluid collection is noted within the proximal left thigh anterolaterally. The more proximal loculated component measures 5.1 x 4.6 cm on image 435. The more distal partially imaged collection within the anterior quadriceps muscle measures 4.5 x 2.7 cm. Collections appear to coalesce Other overall measuring up to approximately 13 cm in craniocaudal dimension. Streak artifact of the arthroplasty limits evaluation of the adjacent tissues. These collections may be contiguous with the joint space. Mildly enlarged left inguinal chain lymph nodes measure up to 10 mm. Small amount of free pelvic fluid. Partial distention of the urinary bladder. Colonic fecal retention. Colonic diverticulosis. IMPRESSION: 1. No acute fracture or dislocation. 2. Unremarkable appearance of the left hip total joint arthroplasty. 3. Multilocular fluid collections within the subcutaneous tissues and imaged quadriceps musculature may represent abscess versus liquefied hematoma measuring up to at least 13 cm in length. There is a decreased amount of hemorrhage compared to the 05/21/2022 study. 4. Mild left inguinal chain lymphadenopathy, likely reactive. ACT 112: Negative or not required by law. The above report was generated using voice recognition software. It may contain grammatical, syntax or spelling errors. Electronically signed by: Festus Blake M.D. 07/03/2022 2:45 PM Discharge Plan Visit Data Chief Complaint: Swelling/Edema to Extremity Stated Complaint: BILAT LEG EDEMA ED Provider: Michael Roberson Discharge Problem: Wound infection Patient Disposition: Admitted As Inpatient Forms Stand Alone Forms: [facility], Virtual Emergency Department, Important Visit Information Prescriptions Prescriptions: No Action multivitamin Tablet 1 tab PO DAILY mirtazapine 15 mg tablet 15 mg PO HS sennosides [senna] 8.6 mg Tablet 17.2 mg PO DAILY sennosides-docusate sodium [Senokot-S] 8.6-50 mg Tablet 1 tab-cap PO QDL PRN (Reason: Constipation) melatonin 3 mg Tablet 6 mg PO HS PRN (Reason: Sleep) acetaminophen [Tylenol Extra Strength] 500 mg Tablet 1,000 mg PO Q8H MDD 3250 MG/24 HOURS PRN (Reason: FEVER/CHRISTIAN) tamsulosin 0.4 mg Capsule 0.4 mg PO QDD bisacodyl 10 mg Suppository 10 mg AZ DAILY PRN (Reason: Constipation) lidocaine 5 % Adhesive Patch,Medicated 1 patch TOPICAL DAILY Rx Instructions: leave on most painful area for up to 12 hrs docusate sodium 100 mg Capsule 100 mg PO BID hydroxyzine HCl 25 mg Tablet 25 mg PO Q6H PRN (Reason: Anxiety) polyethylene glycol 3350 [Miralax] 17 gram/dose Powder 17 g PO QDL PRN (Reason: Constipation) ondansetron 4 mg Tablet,Disintegrating 4 mg PO Q4H PRN (Reason: NAUSEA/VOMITING) magnesium hydroxide [Milk Of Magnesia Concentrated] 2,400 mg/10 mL Suspension 30 ml PO DAILY PRN (Reason: Constipation) Referrals Referrals: Kassidy Robertson CRNP [Outside Practitioners] -
[2022-07-03 13:44] LABS: Basophils # (auto) 0.06 K/uL (0-0.2); Basophils % (auto) 0.6 %; Eosinophils # (auto) 0.12 K/uL (0-0.50); Eosinophils % (auto) 1.3 %; Hematocrit (blood only) 27.8 % (34.1-44.9); Hemoglobin 9.2 g/dl (12.0-16.0); Immature Granulocytes # (auto) 0.05 K/uL (0.00-0.02); Immature Granulocytes % (auto) 0.5 %; Lymphocytes # (auto) 0.36 K/uL (1.2-3.4); Lymphocytes % (auto) 3.8 %; Mean Corpuscular Hemoglobin 34.5 pg (25.0-34.0); Mean Corpuscular Hgb Conc 33.1 g/dL (32.0-36.0); Mean Corpuscular Volume 104.1 fL (80.0-100.0); Mean Platelet Volume 8.9 fL (9.4-12.3); Monocytes # (auto) 0.73 K/uL (0.24-0.82); Monocytes % (auto) 7.7 %; Neutrophils # (auto) 8.15 K/uL (1.4-6.5); Neutrophils % (auto) 86.1 %; Platelet Count 301 K/uL (130-400); RDW Coefficient of Variation 16.2 % (11.5-14.5); RDW Standard Deviation 62.2 fL (36.4-46.3); Red Blood Count 2.67 M/uL (3.93-5.22); White Blood Count 9.47 K/ul (4.8-10.8)
[2022-07-03 13:57] LABS: INR 1.9 (0.9-1.1); Prothrombin Time 19.3 Seconds (9.0-12.0)
[2022-07-03 14:14] LABS: Albumin Level 4.1 gm/dl (3.4-5.0); BUN Creatinine Ratio 40.6 (10-20); Bilirubin,Total 1.3 mg/dl (0.2-1.0); Calcium 9.2 mg/dl (8.5-10.1); Creatinine Clr Calc Pharmacy 61.5 ml/min; Est GFR (African American) 69.6 ml/min; Potassium 2.5 mmol/L (3.5-5.1); Total Protein 8.1 gm/dl (6.0-8.3)
[2022-07-03] MEDS ORDERED: OPTIRAY 350 100ml IV ONE (14:30)
[2022-07-03] MEDS ORDERED: POTASSIUM CHLORIDE CRTAB 20 MEQ TABCR PO STA ×2 (14:36→23:05)
--- NOTE | 2022-07-03 14:47 | CT Scan Report ---
CT hip LT w con HISTORY: 62 years-old Female L hip erythema, eval for abscess acute left-sided hip pain with infecti on and possible abscess COMPARISON: Left hip radiographs 05/22/2022, left hip CT 05/21/2022 TECHNIQUE: Multiple axial CT images of the left hip were obtained following the intravenous administr ation of 85 mL Optiray 350. A dose lowering technique was used consistent with the principals of LEATHA Gillis. FINDINGS: Left hip total joint arthroplasty demonstrates satisfactory alignment. Screw tracts are noted within the greater trochanter. No acute fracture, dislocation or evidence of hardware complication. No suspi cious bone lesions. Moderate subcutaneous edema of the bilateral upper thighs. Multiloculated periphe rally enhancing fluid collection is noted within the proximal left thigh anterolaterally. The more pr oximal loculated component measures 5.1 x 4.6 cm on image 435. The more distal partially imaged colle ction within the anterior quadriceps muscle measures 4.5 x 2.7 cm. Collections appear to coalesce Other overall measuring up to approximately 13 cm in craniocaudal dimension. Streak artifact of the a rthroplasty limits evaluation of the adjacent tissues. These collections may be contiguous with the j oint space. Mildly enlarged left inguinal chain lymph nodes measure up to 10 mm. Small amount of free pelvic fluid. Partial distention of the urinary bladder. Colonic fecal retention . Colonic diverticulosis. IMPRESSION: 1. No acute fracture or dislocation. 2. Unremarkable appearance of the left hip total joint arthroplasty. 3. Multilocular fluid collections within the subcutaneous tissues and imaged quadriceps musculature m ay represent abscess versus liquefied hematoma measuring up to at least 13 cm in length. There is a d ecreased amount of hemorrhage compared to the 05/21/2022 study. 4. Mild left inguinal chain lymphadenopathy, likely reactive. ACT 112: Negative or not required by law. The above report was generated using voice recognition software. It may contain grammatical, syntax o r spelling errors. Electronically signed by: Festus Blake M.D. 07/03/2022 2:45 PM
[2022-07-03] MEDS: MAGNESIUM SULFATE / D5W 1 GM/100 ML BAG IV SCH ×2 (17:15→17:49)
[2022-07-03] MEDS ORDERED: VANCOMYCIN HCL 1,500 MG in SODIUM CHLORIDE 0.9% 500 ML IV ONE (17:19)
[2022-07-03] MEDS ORDERED: PIPERACILLIN/TAZOBACTAM 4.5 GM/120 ML BAG IV ONE (17:19)
[2022-07-03] MEDS ORDERED: VANCOMYCIN CONSULT ACTIVE PRN ×2 (17:19→23:05)
[2022-07-03 17:22] LABS: Troponin I High Sensitivity 23.9 pg/ml (0-14)
[2022-07-03 17:39] LABS: Magnesium 2.2 mg/dl (1.7-2.4)
[2022-07-03] MEDS: POTASSIUM CHLORIDE / WTR 10 MEQ/100 ML PLCT IV SCH ×2 (18:20→19:33)
--- NOTE | 2022-07-03 20:06 | History & Physical Report ---
Date of Service July 03, 2022 Assessment & Plan (1) Wound infection: Plan: Dilma Hogan is a 62-year-old female with past medical history of atrial fibrillation, mitral valve replacement on Coumadin who presented due to 3 days of swelling, redness, and fluid leakage from surgical site at left hip. Left hip surgical wound infection Received vancomycin and Zosyn in ED Continue on Vanco and switch to ceftriaxone Blood cultures drawn in ED Consult orthopedics Pending transfer to [facility], accepted but no beds available at this time Admit to [facility] Hypokalemia Likely due to multiple diuretics in the setting of chronic right heart d ysfunction Received 40 mEq KCl in ED Will order additional 60 mEq at this time Continue daily KCl 40 mEq p.o. BMP in a.m. Right ventricular dysfunction Continue home metolazone as needed, spironolactone 25 mg twice daily, torsemide 100 mg daily At this time does not seem overtly fluid overloaded, though she does have some chronic bilateral lower extremity edema with venous stasis changes As above monitor potassium Atrial fibrillation, history of valve repair Continue Coumadin Continue metoprolol DM2 Hold home metformin Sliding scale while admitted Depression, insomnia Continue home mirtazapine and melatonin as needed GERD Continue home omeprazole FEN/GI: Heart healthy DVT prophylaxis: On home Coumadin Dispo: Admit to [facility], pending transfer to [facility] CODE STATUS: Full (2) History of revision of total replacement of left hip joint: (3) Hypokalemia: (4) History of permanent cardiac pacemaker placement: (5) Chronic anticoagulation: (6) Right ventricular dysfunction: History of Present Illness Primary Care Provider: Baljinder Robbins MD Dilma Hogan is a 62-year-old female with past medical history of atrial fibrillation, mitral valve replacement on Coumadin who presented due to 3 days of swelling, redness, and fluid leakage from surgical site at left hip. She had left total hip arthroplasty at [facility] in [place] in late April. A few weeks after that she came to our hospital and was found to have hematoma of that area. She required transfusion and Kcentra. [place] [facility] She has had some increasing pain in her left hip area with the aforementioned swelling redness and fluid. She communicated with [facility] orthopedics a few days ago regarding the symptoms and she was started on cephalexin. However, swelling, pain, redness continued to worsen. In the ED, patient received a dose of IV vancomycin and Zosyn. ED provider contacted [facility] orthopedics, Dr. Meza, who agreed that the patient should be transferred under their care for further evaluation. However, at this time there are no beds available at [facility]. As such, recommendations were made to admit patient with in-house orthopedics evaluation in the morning. CT scan of the left hip showed evidence of multiloculated fluid collection approximately 13 cm in length, no evidence of any gas formations. Lab work significant for hypokalemia at 2.5, which was repleted with oral po tassium 40 mEq in ED due to patient refusal of IV repletion. Blood cultures drawn prior to antibiotics. Allergies Allergy/AdvReac Type Severity Reaction Status Date / Time mushroom Allergy Intermediate EYES Verified 07/03/22 21:29 SWELLED adhesive Allergy Mild rash Verified 07/03/22 21:29 Corticosteroids Allergy Unknown HYPOTENSION Verified 07/03/22 21:29 (Glucocorticoids) hydrocodone Allergy Unknown ON MED LIST Verified 07/03/22 21:29 levofloxacin [From Levaquin] Allergy Unknown ON MED LIST Verified 07/03/22 21:29 morphine Allergy Unknown HALLUCINATI Verified 07/03/22 21:29 ONS spironolactone Allergy Unknown Unknown Verified 07/03/22 21:29 fluoxetine Allergy Rash Verified 07/04/22 00:07 Estrogens AdvReac Severe CHF Verified 07/03/22 21:29 lorazepam AdvReac Severe mental Verified 07/03/22 21:29 status change azithromycin AdvReac Intermediate Tachycardia Verified 07/03/22 21:30 [From Zithromax Z-Anton] /A-FIB codeine AdvReac Intermediate Shakiness Verified 07/03/22 21:30 doxycycline AdvReac Intermediate LEGS SWELL Verified 07/03/22 21:30 fluocinonide AdvReac Intermediate Tachycardia Verified 07/03/22 21:30 NSAIDS (Non-Steroidal AdvReac Intermediate HYPOTENSION Verified 07/03/22 21:30 Anti-Inflamma zolpidem [From Ambien] AdvReac Intermediate MENTAL Verified 07/03/22 21:30 STATUS CHANGE prednisone AdvReac Unknown LOW BP D/T Verified 07/03/22 21:30 FLUID SHIFT cephalexin AdvReac Tachycardia Verified 07/04/22 00:07 Anti-Depressents Allergy Unknown SEE COMMENT Uncoded 05/21/22 13:33 Home Medications Medication Instructions Recorded Confirmed Type mirtazapine 15 mg tablet 15 mg PO HS 04/06/22 07/03/22 History multivitamin 1 tab PO DAILY 04/06/22 07/03/22 History acetaminophen 500 mg tablet 1,000 mg PO Q8H PRN FEVER/CHRISTIAN 05/21/22 07/03/22 History (Tylenol Extra Strength) hydroxyzine HCl 25 mg tablet 25 mg PO Q6H PRN Anxiety 05/21/22 07/03/22 History lidocaine 5 % topical patch 1 patch topical DAILY PRN Pain 05/21/22 07/03/22 History melatonin 3 mg tablet 3 mg PO HS PRN Sleep 05/21/22 07/03/22 History ondansetron 4 mg disintegrating 4 mg PO Q4H PRN NAUSEA/VOMITING 05/21/22 07/03/22 History tablet sennosides 8.6 mg-docusate sodium 1 tab-cap PO QDL PRN Constipation 05/21/22 07/03/22 History 50 mg tablet (Senokot-S) betamethasone valerate 0.1 % 1 applic topical DAILY 07/03/22 07/03/22 History topical ointment cephalexin 500 mg capsule 500 mg PO QID 07/03/22 07/03/22 History metformin 500 mg tablet,extended 500 mg PO BID 07/03/22 07/03/22 History release 24hr metolazone 2.5 mg tablet 2.5 mg PO DAILY PRN Edema 07/03/22 07/03/22 History metoprolol tartrate 25 mg tablet 25 mg PO QPM 07/03/22 07/03/22 History omeprazole 40 mg capsule,delayed 40 mg PO AMPM 07/03/22 07/03/22 History release potassium chloride 10 mEq 40 meq PO QAM 07/03/22 07/03/22 History tablet,extended release spironolactone 25 mg tablet 25 mg PO AMPM 07/03/22 07/03/22 History torsemide 100 mg tablet 100 mg PO DAILY 07/03/22 07/03/22 History warfarin 1 mg tablet (Jantoven) 2 mg PO 3XWK 07/03/22 07/03/22 History warfarin 1 mg tablet (Jantoven) 4 mg PO 4XWK 07/03/22 07/03/22 History Past Med/Surg History Medical History (Updated 07/03/22 @ 21:11 by Joshua Ceja MD) Acute blood loss anemia Acute exacerbation of chronic low back pain Acute kidney injury Anemia Anticoagulant-induced bleeding Atrial fibrillation Avascular necrosis of bone of left hip Chronic anticoagulation Chronic cor pulmonale Chronic left hip pain Chronic SI joint pain Depression Diverticular disease DM w/o complication type II high BSG in am, but normal A1C. Takes no medications. DM2 (diabetes mellitus, type 2) Elevated LDH Elevated LFTs Gallstones Hematoma of left thigh Hernia X2 Hyperkalemia Hyponatremia Hyponatremia Leg length discrepancy Mitral stenosis Nausea Pacemaker Post traumatic stress disorder Pulmonary hypertension Rheumatic cardiomyopathy RHF (right heart failure) Right-sided heart failure Supratherapeutic INR Tricuspid stenosis Tricuspid stenosis, acquired due to prior tricuspid valve repair Upper respiratory infection currently on abx UTI (urinary tract infection) Surgical History (Updated 06/01/22 @ 00:08 by Chad Pinto) H/O mitral valve replacement 1985, initial MVR at [facility] [address] [facility] [employer] Mechanical valve; INR goal 2.5-3.5 H/O tricuspid valve repair H/O tricuspid valve repair initial - 1985; repeat TV repair 2004 H/O tricuspid valve repair H/O tympanostomy History of bilateral tubal ligation History of cardiac cath 1983, 2003, NO STENTS ROUTINE History of cardiac radiofrequency ablation for a.fib - 2003 History of endoscopic sinus surgery ATTEMPTED TO CAUTERIZE 05/14, UNABLE, PATIENT IN PAIN AND BLEEDING History of permanent cardiac pacemaker placement 2019 - placed due to complete heart block interrogated february 2020 History of placement of ear tubes History of tubal ligation S/P MVR (mitral valve replacement) S/P ORIF (open reduction internal fixation) fracture Left hip July 2019 Reed teeth removed Family History Mother , 60s Gastric cancer Father , age 65 Lung cancer Social History Smoking Status: Former smoker packs per day: 0.5; Cigarettes Per Day: 10; Second Hand Exposure: No; Do You Dip or Chew Tobacco: No; Tobacco Cessation Education Requested by Patient: No Hx Alcohol Use: Yes Alcohol type: wine Hx Substance Use: No Preferred Language: [place] Communication Ability: Effective Food Counselor Required: No Beliefs That Will Affect Care: None marital status: marital status details: 1 son Current Living Situation: Alone Current Living Situation Comment: PATIENT DOES HAVE ANY FRIENDS/FAMILY. 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 Otherwise per HPI. Physical Exam Physical Exam: GENERAL: A&Ox3. NAD. HEENT: PERRL, EOMI. Moist mucous membranes. NECK: No JVD. No lymphadenopathy. CHEST/LUNGS: CTAB A/P. No crackles, wheezes, rales, rhonchi. HEART: RRR. No m/g/r. No carotid bruits. ABDOMEN: NT/ND, soft. BS+ x4 EXTREMITIES: Left anterior proximal thigh with area of wound dehiscence, draining serosanguineous fluid. 3+ pitting edema in BLE. No cyanosis, no clubbing. SKIN: Warm and dry. No rashes or lesions. PSYCHIATRIC: Euthymic affect, no SI, no pressured speech, no hallucinations NEUROLOGIC: No FND. CN II-XII grossly intact. Results & Data Results & Data ([facility]) Vital Signs (Past 12 Hours) Vital Signs Temp Pulse Pulse Resp BP BP Pulse Ox 07/03/22 20:00 70 18 115/60 96 07/03/22 18:38 71 25 H 96 07/03/22 18:00 73 22 07/03/22 18:00 116/67 07/03/22 17:30 70 27 H 07/03/22 17:30 127/66 07/03/22 17:00 73 21 07/03/22 17:00 107/63 07/03/22 16:30 71 16 07/03/22 16:30 119/60 07/03/22 16:00 74 30 H 07/03/22 16:00 122/58 L 07/03/22 15:30 74 18 07/03/22 15:30 107/56 L 07/03/22 15:00 74 20 07/03/22 15:00 123/65 07/03/22 14:41 70 23 97 07/03/22 14:41 115/62 07/03/22 18:05 36.8 C 70 18 118/70 96 07/03/22 14:45 96 H 18 96 07/03/22 12:56 36.7 C 87 20 124/67 95 O2 Del Method 07/03/22 20:00 Room Air 07/03/22 18:38 07/03/22 18:00 07/03/22 18:00 07/03/22 17:30 07/03/22 17:30 07/03/22 17:00 07/03/22 17:00 07/03/22 16:30 07/03/22 16:30 07/03/22 16:00 07/03/22 16:00 07/03/22 15:30 07/03/22 15:30 07/03/22 15:00 07/03/22 15:00 07/03/22 14:41 07/03/22 14:41 07/03/22 18:05 07/03/22 14:45 Room Air 07/03/22 12:56 Room Air Supervising Physician Co-Signing Physician Notes Attending addendum: I have physically seen this patient, have supervised the medical residents activities, and agree with the H&P unless as otherwise noted. Assessment and Plan: Left hip surgical wound infection- Status post vancomycin IV and Zosyn IV in ED Admitted on vancomycin IV and ceftriaxone IV Follow blood cultures and sensitivities Patient is admitted to [facility] overnight, in anticipation of transfer to [facility] tomorrow, when bed is available. Hypokalemia- Hold diuretics Status post Klor-Con 40 mEq in the ED Give additional 60 mEq p.o. now, and continue daily 40 mEq Repeat BMP and magnesium levels in a.m Atrial fibrillation/hypertension- Continue warfarin with serial INRs Continue metoprolol with hold parameters Diabetes mellitus- Hold metformin Placed on Accu-Cheks before meals and at bedtime/every 6 hours with SSI Remaining orders and notations as noted Resident Activity Tracking Resident Involvement: Resident Care Provided Care Provided: Adult Hospital Medicine
[2022-07-03] MEDS ORDERED: CARBOHYDRATES FOR HYPOGLYCEMIA PO PRN (23:05)
[2022-07-03] MEDS ORDERED: GLUCOSE 40% GEL 15 GM TUBE PO PRN (23:05)
[2022-07-03] MEDS ORDERED: DOCUSATE SODIUM/SENNA 50/8.6MG TAB PO PRN (23:05)
[2022-07-03] MEDS ORDERED: GLUCAGON FOR INJ 1 MG VIAL SQ PRN (23:05)
[2022-07-03] MEDS ORDERED: ONDANSETRON 4 MG OD TAB PO PRN (23:05)
[2022-07-03] MEDS ORDERED: ACETAMINOPHEN 500 MG TAB PO PRN (23:05)
[2022-07-03] MEDS ORDERED: GLUCOSE 10 TAB/TUBE PO PRN (23:05)
[2022-07-03] MEDS ORDERED: bisacodyL 10 MG SUPP PR PRN (23:05)
[2022-07-03] MEDS ORDERED: POLYETHYLENE (MIRALAX) 17 GM PACK PO PRN (23:05)
[2022-07-03] MEDS ORDERED: DEXTROSE 50% 50 ML SYRINGE IV PRN (23:05)
[2022-07-03] MEDS ORDERED: MELATONIN 3 MG TAB PO PRN (23:05)
[2022-07-03] MEDS ORDERED: hydrOXYzine HCl 25 MG TAB PO PRN (23:05)
[2022-07-03] MEDS ORDERED: MIRTAZAPINE TAB 15 MG TAB PO SCH (23:05)
[2022-07-03] MEDS ORDERED: metOLazone 2.5 MG TABLET PO PRN (23:05)
[2022-07-03] MEDS ORDERED: WARFARIN SOD 2 MG TAB PO SCH (23:05)
[2022-07-03] MEDS ORDERED: cefTRIAXone SODIUM 2,000 MG in DEXTROSE 5% 50 ML IV SCH (23:30)
[2022-07-04] MEDS ORDERED: VANCOMYCIN HCL 1,250 MG in SODIUM CHLORIDE 0.9% 500 ML IV SCH (02:00)
[2022-07-04] MEDS ORDERED: VANCOMYCIN HCL 1,250 MG in SODIUM CHLORIDE 0.9% 250 ML IV SCH (02:00)
[2022-07-04 05:24] LABS: Basophils # (auto) 0.07 K/uL (0-0.2); Basophils % (auto) 0.9 %; Eosinophils # (auto) 0.22 K/uL (0-0.50); Eosinophils % (auto) 2.8 %; Hematocrit (blood only) 24.4 % (34.1-44.9); Hemoglobin 8.1 g/dl (12.0-16.0); Immature Granulocytes # (auto) 0.02 K/uL (0.00-0.02); Immature Granulocytes % (auto) 0.3 %; Lymphocytes # (auto) 0.29 K/uL (1.2-3.4); Lymphocytes % (auto) 3.6 %; Mean Corpuscular Hemoglobin 33.9 pg (25.0-34.0); Mean Corpuscular Hgb Conc 33.2 g/dL (32.0-36.0); Mean Corpuscular Volume 102.1 fL (80.0-100.0); Mean Platelet Volume 8.5 fL (9.4-12.3); Monocytes # (auto) 0.47 K/uL (0.24-0.82); Monocytes % (auto) 5.9 %; Neutrophils # (auto) 6.91 K/uL (1.4-6.5); Neutrophils % (auto) 86.5 %; Platelet Count 239 K/uL (130-400); RDW Standard Deviation 59.7 fL (36.4-46.3); Red Blood Count 2.39 M/uL (3.93-5.22); White Blood Count 7.98 K/ul (4.8-10.8)
[2022-07-04 05:40] LABS: INR 1.7 (0.9-1.1); Prothrombin Time 17.6 Seconds (9.0-12.0)
[2022-07-04 06:06] LABS: Calcium 8.2 mg/dl (8.5-10.1); Creatinine Clr Calc Pharmacy 61.4 ml/min; Est GFR (African American) 70.4 ml/min; Est GFR (Non-African American) 60.8 ml/min; Magnesium 2.6 mg/dl (1.7-2.4); Potassium 3.1 mmol/L (3.5-5.1)
[2022-07-04] MEDS ORDERED: POTASSIUM CHLORIDE CRTAB 20 MEQ TABCR PO STA ×2 (06:12→08:05)
--- NOTE | 2022-07-04 07:16 | Electrocardiogram Report ---
Test Reason : Blood Pressure : / mmHG Vent. Rate : 071 BPM Atrial Rate : 072 BPM P-R Int : 000 ms QRS Dur : 200 ms QT Int : 498 ms P-R-T Axes : 000 -51 065 degrees QTc Int : 541 ms Ventricular-paced rhythm with occasonal PVC Abnormal ECG When compared with ECG of 21-MAY-2022 11:08, Vent. rate has decreased BY 2 BPM Confirmed by Guy Zaragoza ([id number]) on 07/04/2022 7:16:27 AM Referred By: REFERRED SELF Confirmed By:Jairon Zaragoza
--- NOTE | 2022-07-04 08:11 | Hospitalist Progress Note ---
Date of Service July 04, 2022 Assessment & Plan (1) Wound infection: Plan: Dilma Hogan is a 62-year-old female with past medical history of atrial fibrillation, mitral valve replacement on Coumadin who presented due to 3 days of swelling, redness, and fluid leakage from surgical site at left hip. Left hip surgical wound infection Received vancomycin and Zosyn in ED, zosyn d/c'd, started on rocephin. Continue on Vanco and rocephin Blood cultures drawn in ED, no growth thus far Consulted orthopedics Pending transfer to [facility], accepted but no beds available at this time - trend cbc Hypokalemia, acute on chronic Likely due to multiple diuretics in the setting of chronic right heart dysfunction Continue daily KCl 40 mEq p.o. Additional 20meq today. trend bmp Right ventricular dysfunction Continue home metolazone as needed, spironolactone 25 mg twice daily, torsemide 100 mg daily At this time does not seem overtly fluid overloaded, though she does have some chronic bilateral lower extremity edema with venous stasis changes As above monitor potassium Atrial fibrillation, history of valve repair Continue Coumadin Continue metoprolol DM2 Hold home metformin Sliding scale while admitted Depression, insomnia Continue home mirtazapine and melatonin as needed GERD Continue home omeprazole FEN/GI: Heart healthy DVT prophylaxis: home Coumadin Dispo: med surg, pending transfer to [facility] Code Status: Full (2) History of revision of total replacement of left hip joint: (3) Hypokalemia: (4) History of permanent cardiac pacemaker placement: (5) Chronic anticoagulation: (6) Right ventricular dysfunction: Admission and Anticipated Discharge Date Admission Date: July 03, 2022 Subjective Seen at bedside this morning. Condition stable. LLE painful but no numbness/tingling. Denies abd pain, chest pain, sob, N/V, headache, dysuria. Physical Exam Physical Exam: GENERAL: AOx3. NAD. HEENT: EOMI. Moist mucous membranes. NECK: No JVD. No lymphadenopathy. CHEST/LUNGS: CTAB. No crackles, wheezes, rales, rhonchi. HEART: RRR. No m/g/r. ABDOMEN: soft. BS+ x4, nontender, nondistended EXTREMITIES: Left anterior proximal thigh with area of wound dehiscence, jimmy barlow serosanguineous fluid. 3+ pitting edema in LE L>R. No cyanosis, no clubbing. SKIN: Warm and dry. No rashes or lesions. PSYCHIATRIC: Euthymic affect, no SI, no pressured speech, no hallucinations NEUROLOGIC: No FND. CN II-XII grossly intact. Results & Data Results & Data ([facility]) Vital Signs (Past 12 Hours) Vital Signs Temp Pulse Resp BP Pulse Ox O2 Del Method 07/04/22 07:53 36.5 C 70 16 96/60 L 100 Room Air 07/03/22 23:07 Room Air 07/03/22 23:09 36.8 C 71 16 142/80 H 97 Room Air 07/03/22 22:00 70 18 118/61 96 Room Air Laboratory Results 07/04/22 07/04/22 07/04/22 Range/Units 08:07 05:15 05:15 WBC (4.8-10.8) K/ul RBC (3.93-5.22) M/uL Hgb (12.0-16.0) g/dl Hct (34.1-44.9) % MCV (80.0-100.0) fL MCH (25.0-34.0) pg MCHC (32.0-36.0) g/dL RDW Std Deviation (36.4-46.3) fL RDW Coeff of Dunia (11.5-14.5) % Plt Count (130-400) K/uL MPV (9.4-12.3) fL Immature Gran % (Auto) % Neut % (Auto) % Lymph % (Auto) % [place] % (Auto) % Eos % (Auto) % Baso % (Auto) % Neut # (Auto) (1.4-6.5) K/uL Lymph # (Auto) (1.2-3.4) K/uL [place] # (Auto) (0.24-0.82) K/uL Eos # (Auto) (0-0.50) K/uL Baso # (Auto) (0-0.2) K/uL Immature Gran # (Auto) (0.00-0.02) K/uL PT 17.6 H (9.0-12.0) Seconds INR 1.7 H (0.9-1.1) Sodium 133 L (136-145) mmol/L Potassium 3.1 L D (3.5-5.1) mmol/L Chloride 100 (98-107) mmol/L Carbon Dioxide 24 (21-32) mmol/L Anion Gap 9 (3-11) BUN 38 H (6-23) mg/dl Creatinine 1.00 (0.6-1.2) mg/dl Est Cr Clr Drug Dosing 61.4 ml/min Est GFR ( Amer) 70.4 ml/min Est GFR (Non-Af Amer) 60.8 ml/min BUN/Creatinine Ratio 38.0 H (10-20) Glucose 128 H (70-99(Fasting)) mg/dl POC Glucose 131 H (70-99) mg/dl Calcium 8.2 L (8.5-10.1) mg/dl Magnesium 2.6 H (1.7-2.4) mg/dl Total Bilirubin (0.2-1.0) mg/dl AST (13-39) U/L ALT (7-52) U/L Alkaline Phosphatase (34-104) U/L Troponin I High Sens (0-14) pg/ml Total Protein (6.0-8.3) gm/dl Albumin (3.4-5.0) gm/dl Globulin (2.5-4.0) gm/dl Albumin/Globulin Ratio (0.9-2) Lipase (11-82) U/L SARS-CoV-2, RNA, NAAT (NEGATIVE) 07/04/22 07/03/22 07/03/22 Range/Units 05:15 16:45 16:38 WBC 7.98 (4.8-10.8) K/ul RBC 2.39 L (3.93-5.22) M/uL Hgb 8.1 L (12.0-16.0) g/dl Hct 24.4 L (34.1-44.9) % MCV 102.1 H (80.0-100.0) fL MCH 33.9 (25.0-34.0) pg MCHC 33.2 (32.0-36.0) g/dL RDW Std Deviation 59.7 H (36.4-46.3) fL RDW Coeff of Dunia 16.0 H (11.5-14.5) % Plt Count 239 (130-400) K/uL MPV 8.5 L (9.4-12.3) fL Immature Gran % (Auto) 0.3 % Neut % (Auto) 86.5 % Lymph % (Auto) 3.6 % [place] % (Auto) 5.9 % Eos % (Auto) 2.8 % Baso % (Auto) 0.9 % Neut # (Auto) 6.91 H (1.4-6.5) K/uL Lymph # (Auto) 0.29 L (1.2-3.4) K/uL [place] # (Auto) 0.47 (0.24-0.82) K/uL Eos # (Auto) 0.22 (0-0.50) K/uL Baso # (Auto) 0.07 (0-0.2) K/uL Immature Gran # (Auto) 0.02 (0.00-0.02) K/uL PT (9.0-12.0) Seconds INR (0.9-1.1) Sodium (136-145) mmol/L Potassium (3.5-5.1) mmol/L Chloride (98-107) mmol/L Carbon Dioxide (21-32) mmol/L Anion Gap (3-11) BUN (6-23) mg/dl Creatinine (0.6-1.2) mg/dl Est Cr Clr Drug Dosing ml/min Est GFR ( Amer) ml/min Est GFR (Non-Af Amer) ml/min BUN/Creatinine Ratio (10-20) Glucose (70-99(Fasting)) mg/dl POC Glucose (70-99) mg/dl Calcium (8.5-10.1) mg/dl Magnesium 2.2 (1.7-2.4) mg/dl Total Bilirubin (0.2-1.0) mg/dl AST (13-39) U/L ALT (7-52) U/L Alkaline Phosphatase (34-104) U/L Troponin I High Sens 23.9 H D (0-14) pg/ml Total Protein (6.0-8.3) gm/dl Albumin (3.4-5.0) gm/dl Globulin (2.5-4.0) gm/dl Albumin/Globulin Ratio (0.9-2) Lipase (11-82) U/L SARS-CoV-2, RNA, NAAT NEGATIVE (NEGATIVE) 07/03/22 07/03/22 07/03/22 Range/Units 13:30 13:30 13:30 WBC 9.47 (4.8-10.8) K/ul RBC 2.67 L (3.93-5.22) M/uL Hgb 9.2 L (12.0-16.0) g/dl Hct 27.8 L (34.1-44.9) % MCV 104.1 H (80.0-100.0) fL MCH 34.5 H (25.0-34.0) pg MCHC 33.1 (32.0-36.0) g/dL RDW Std Deviation 62.2 H (36.4-46.3) fL RDW Coeff of Dunia 16.2 H (11.5-14.5) % Plt Count 301 (130-400) K/uL MPV 8.9 L (9.4-12.3) fL Immature Gran % (Auto) 0.5 % Neut % (Auto) 86.1 % Lymph % (Auto) 3.8 % [place] % (Auto) 7.7 % Eos % (Auto) 1.3 % Baso % (Auto) 0.6 % Neut # (Auto) 8.15 H (1.4-6.5) K/uL Lymph # (Auto) 0.36 L (1.2-3.4) K/uL [place] # (Auto) 0.73 (0.24-0.82) K/uL Eos # (Auto) 0.12 (0-0.50) K/uL Baso # (Auto) 0.06 (0-0.2) K/uL Immature Gran # (Auto) 0.05 H (0.00-0.02) K/uL PT 19.3 H (9.0-12.0) Seconds INR 1.9 H (0.9-1.1) Sodium 131 L (136-145) mmol/L Potassium 2.5 L* (3.5-5.1) mmol/L Chloride 94 L (98-107) mmol/L Carbon Dioxide 28 (21-32) mmol/L Anion Gap 9 (3-11) BUN 41 H (6-23) mg/dl Creatinine 1.01 (0.6-1.2) mg/dl Est Cr Clr Drug Dosing 61.5 ml/min Est GFR ( Amer) 69.6 ml/min Est GFR (Non-Af Amer) 60.0 ml/min BUN/Creatinine Ratio 40.6 H (10-20) Glucose 123 H (70-99(Fasting)) mg/dl POC Glucose (70-99) mg/dl Calcium 9.2 (8.5-10.1) mg/dl Magnesium (1.7-2.4) mg/dl Total Bilirubin 1.3 H (0.2-1.0) mg/dl AST 22 (13-39) U/L ALT 12 (7-52) U/L Alkaline Phosphatase 166 H (34-104) U/L Troponin I High Sens (0-14) pg/ml Total Protein 8.1 (6.0-8.3) gm/dl Albumin 4.1 (3.4-5.0) gm/dl Globulin 4.0 (2.5-4.0) gm/dl Albumin/Globulin Ratio 1.0 (0.9-2) Lipase 23 (11-82) U/L SARS-CoV-2, RNA, NAAT (NEGATIVE)
[2022-07-04] MEDS ORDERED: TORSEMIDE 100 MG TAB PO SCH (09:00)
[2022-07-04] MEDS ORDERED: LIDOCAINE 5% 1 PATCH TD SCH (09:00)
[2022-07-04] MEDS ORDERED: PANTOprazole 40 MG TAB PO SCH (09:00)
[2022-07-04] MEDS ORDERED: MULTIVITAMIN TAB PO SCH (09:00)
[2022-07-04] MEDS ORDERED: SPIRONOLACTONE 25 MG TAB PO SCH (09:00)
[2022-07-04] MEDS ORDERED: POTASSIUM CHLORIDE CRTAB 20 MEQ TABCR PO SCH (09:00)
[2022-07-04] MEDS: INSULIN ASPART PER UNIT SC SCH ×2 (09:07→12:05)
--- NOTE | 2022-07-04 15:13 | Discharge Summary ---
Date of Service July 04, 2022 Admission HPI Per Admitting Provider Dilma Hogan is a 62-year-old female with past medical history of atrial fibrillation, mitral valve replacement on Coumadin who presented due to 3 days of swelling, redness, and fluid leakage from surgical site at left hip. She had left total hip arthroplasty at [facility] in [place] in late April. A few weeks after that she came to our hospital and was found to have hematoma of that area. She required transfusion and Kcentra. Was eventually transferred to [facility]. She has had some increasing pain in her left hip area with the aforementioned swelling redness and fluid. She communicated with [facility] orthopedics a few days ago regarding the symptoms and she was started on cephalexin. However, swelling, pain, redness continued to worsen. In the ED, patient received a dose of IV vancomycin and Zosyn. ED provider contacted [facility] orthopedics, Dr. Meza, who agreed that the patient should be transferred under their care for further evaluation. However, at this time there are no beds available at [facility]. As such, recommendations were made to admit patient with in-house orthopedics evaluation in the morning. CT scan of the left hip showed evidence of multiloculated fluid collection approximately 13 cm in length, no evidence of any gas formations. Lab work significant for hypokalemia at 2.5, which was repleted with oral potassium 40 mEq in ED due to patient refusal of IV repletion. Blood cultures drawn prior to antibiotics. Principal Diagnosis surgical wound infection Discharge Exam GENERAL: AOx3. NAD. HEENT: EOMI. Moist mucous membranes. NECK: No JVD. No lymphadenopathy. CHEST/LUNGS: CTAB. No crackles, wheezes, rales, rhonchi. HEART: RRR. No m/g/r. ABDOMEN: soft. BS+ x4, nontender, nondistended EXTREMITIES: Left anterior proximal thigh with area of wound dehiscence, draining serosanguineous fluid. 3+ pitting edema in LE L>R. No cyanosis, no clubbing. SKIN: Warm and dry. No rashes or lesions. PSYCHIATRIC: Euthymic affect, no SI, no pressured speech, no hallucinations NEUROLOGIC: no focal deficits Discharge Data Allergies Allergy/AdvReac Type Severity Reaction Status Date / Time mushroom Allergy Intermediate EYES Verified 11/25/22 21:29 SWELLED adhesive Allergy Mild rash Verified 07/03/22 21:29 Corticosteroids Allergy Unknown HYPOTENSION Verified 07/03/22 21:29 (Glucocorticoids) hydrocodone Allergy Unknown ON MED LIST Verified 07/03/22 21:29 levofloxacin [From Levaquin] Allergy Unknown ON MED LIST Verified 07/03/22 21:29 morphine Allergy Unknown HALLUCINATI Verified 07/03/22 21:29 ONS spironolactone Allergy Unknown Unknown Verified 07/03/22 21:29 fluoxetine Allergy Rash Verified 07/04/22 00:07 Estrogens AdvReac Severe CHF Verified 07/03/22 21:29 lorazepam AdvReac Severe mental Verified 07/03/22 21:29 status change azithromycin AdvReac Intermediate Tachycardia Verified 07/03/22 21:30 [From Zithromax Z-Anton] /A-FIB codeine AdvReac Intermediate Shakiness Verified 07/03/22 21:30 doxycycline AdvReac Intermediate LEGS SWELL Verified 07/03/22 21:30 fluocinonide AdvReac Intermediate Tachycardia Verified 07/03/22 21:30 NSAIDS (Non-Steroidal AdvReac Intermediate HYPOTENSION Verified 07/03/22 21:30 Anti-Inflamma zolpidem [From Ambien] AdvReac Intermediate MENTAL Verified 07/03/22 21:30 STATUS CHANGE prednisone AdvReac Unknown LOW BP D/T Verified 07/03/22 21:30 FLUID SHIFT cephalexin AdvReac Tachycardia Verified 07/04/22 00:07 Anti-Depressents Allergy Unknown SEE COMMENT Uncoded 05/21/22 13:33 Consultations 07/03/22 19:06 Consult Orthopedic Surgery Routine 07/03/22 19:19 ED Decision to Admit Stat Ordered Studies Laboratory Results WBC 7.98 K/ul (4.8-10.8) 07/04/22 05:15 RBC 2.39 M/uL (3.93-5.22) L 07/04/22 05:15 Hgb 8.1 g/dl (12.0-16.0) L 07/04/22 05:15 Hct 24.4 % (34.1-44.9) L 07/04/22 05:15 MCV 102.1 fL (80.0-100.0) H 07/04/22 05:15 MCH 33.9 pg (25.0-34.0) 07/04/22 05:15 MCHC 33.2 g/dL (32.0-36.0) 07/04/22 05:15 RDW Std Deviation 59.7 fL (36.4-46.3) H 07/04/22 05:15 RDW Coeff of Dunia 16.0 % (11.5-14.5) H 07/04/22 05:15 Plt Count 239 K/uL (130-400) 07/04/22 05:15 MPV 8.5 fL (9.4-12.3) L 07/04/22 05:15 Immature Gran % (Auto) 0.3 % 07/04/22 05:15 Neut % (Auto) 86.5 % 07/04/22 05:15 Lymph % (Auto) 3.6 % 07/04/22 05:15 Coke % (Auto) 5.9 % 07/04/22 05:15 Eos % (Auto) 2.8 % 07/04/22 05:15 Baso % (Auto) 0.9 % 07/04/22 05:15 Neut # (Auto) 6.91 K/uL (1.4-6.5) H 07/04/22 05:15 Lymph # (Auto) 0.29 K/uL (1.2-3.4) L 07/04/22 05:15 Coke # (Auto) 0.47 K/uL (0.24-0.82) 07/04/22 05:15 Eos # (Auto) 0.22 K/uL (0-0.50) 07/04/22 05:15 Baso # (Auto) 0.07 K/uL (0-0.2) 07/04/22 05:15 Immature Gran # (Auto) 0.02 K/uL (0.00-0.02) 07/04/22 05:15 PT 17.6 Seconds (9.0-12.0) H 07/04/22 05:15 INR 1.7 (0.9-1.1) H 07/04/22 05:15 Sodium 133 mmol/L (136-145) L 07/04/22 05:15 Potassium 3.1 mmol/L (3.5-5.1) L D 07/04/22 05:15 Chloride 100 mmol/L (98-107) 07/04/22 05:15 Carbon Dioxide 24 mmol/L (21-32) 07/04/22 05:15 Anion Gap 9 (3-11) 07/04/22 05:15 BUN 38 mg/dl (6-23) H 07/04/22 05:15 Creatinine 1.00 mg/dl (0.6-1.2) 07/04/22 05:15 Est Cr Clr Drug Dosing 61.4 ml/min 07/04/22 05:15 Est GFR ( Amer) 70.4 ml/min 07/04/22 05:15 Est GFR (Non-Af Amer) 60.8 ml/min 07/04/22 05:15 BUN/Creatinine Ratio 38.0 (10-20) H 07/04/22 05:15 Glucose 128 mg/dl (70-99(Fasting)) H 07/04/22 05:15 POC Glucose 131 mg/dl (70-99) H 07/04/22 08:07 Calcium 8.2 mg/dl (8.5-10.1) L 07/04/22 05:15 Magnesium 2.6 mg/dl (1.7-2.4) H 07/04/22 05:15 Total Bilirubin 1.3 mg/dl (0.2-1.0) H 07/03/22 13:30 AST 22 U/L (13-39) 07/03/22 13:30 ALT 12 U/L (7-52) 07/03/22 13:30 Alkaline Phosphatase 166 U/L (34-104) H 07/03/22 13:30 Troponin I High Sens 23.9 pg/ml (0-14) H D 07/03/22 16:38 Total Protein 8.1 gm/dl (6.0-8.3) 07/03/22 13:30 Albumin 4.1 gm/dl (3.4-5.0) 07/03/22 13:30 Globulin 4.0 gm/dl (2.5-4.0) 07/03/22 13:30 Albumin/Globulin Ratio 1.0 (0.9-2) 07/03/22 13:30 Lipase 23 U/L (11-82) 07/03/22 13:30 SARS-CoV-2, RNA, NAAT NEGATIVE (NEGATIVE) 07/03/22 16:[address] 07/03/22 13:26 CT hip LT w con HISTORY: 62 years-old Female L hip erythema, eval for abscess acute left-sided hip pain with infection and possible abscess COMPARISON: Left hip radiographs 05/22/2022, left hip CT 05/21/2022 TECHNIQUE: Multiple axial CT images of the left hip were obtained following the intravenous administration of 85 mL Optiray 350. A dose lowering technique was used consistent with the principals of ALARA. FINDINGS: Left hip total joint arthroplasty demonstrates satisfactory alignment. Screw tracts are noted within the greater trochanter. No acute fracture, dislocation or evidence of hardware complication. No suspicious bone lesions. Moderate subcutaneous edema of the bilateral upper thighs. Multiloculated peripherally enhancing fluid collection is noted within the proximal left thigh anterolaterally. The more proximal loculated component measures 5.1 x 4.6 cm on image 435. The more distal partially imaged collection within the anterior quadriceps muscle measures 4.5 x 2.7 cm. Collections appear to coalesce Other overall measuring up to approximately 13 cm in craniocaudal dimension. Streak artifact of the arthroplasty limits evaluation of the adjacent tissues. These collections may be contiguous with the joint space. Mildly enlarged left inguinal chain lymph nodes measure up to 10 mm. Small amount of free pelvic fluid. Partial distention of the urinary bladder. Colonic fecal retention. Colonic diverticulosis. IMPRESSION: 1. No acute fracture or dislocation. 2. Unremarkable appearance of the left hip total joint arthroplasty. 3. Multilocular fluid collections within the subcutaneous tissues and imaged quadriceps musculature may represent abscess versus liquefied hematoma measuring up to at least 13 cm in length. There is a decreased amount of hemorrhage compared to the 05/21/2022 study. 4. Mild left inguinal chain lymphadenopathy, likely reactive. ACT 112: Negative or not required by law. The above report was generated using voice recognition software. It may contain grammatical, syntax or spelling errors. Electronically signed by: Festus Blake M.D. 07/03/2022 2:45 PM Hospital Course (1) Wound infection: Dilma Hogan is a 62-year-old female with past medical history of atrial fibrillation, mitral valve replacement on Coumadin who presented due to 3 days of swelling, redness, and fluid leakage from surgical site at left hip. Left hip surgical wound infection Received vancomycin and Zosyn in ED, zosyn d/c'd, started on rocephin. Continue on Vanco and rocephin Blood cultures drawn in ED, no growth thus far Consulted orthopedics, case initially discussed with ER physician Transferring to [facility] since previous L hip surgery was performed with their group and if surgical management necessary (ie washout) her original team would be best. Hypokalemia, acute on chronic Likely due to multiple diuretics in the setting of chronic right heart dysfunction Continue daily KCl 40 mEq p.o. Additional 20meq today. Right ventricular dysfunction Continue home metolazone as needed, spironolactone 25 mg twice daily, torsemide 100 mg daily At this time does not seem overtly fluid overloaded, though she does have some chronic bilateral lower extremity edema with venous stasis changes As above monitor potassium Atrial fibrillation, history of valve repair Continue Coumadin Continue metoprolol DM2 Hold home metformin Sliding scale while admitted Depression, insomnia Continue home mirtazapine and melatonin as needed GERD Continue home omeprazole (2) History of revision of total replacement of left hip joint: (3) Hypokalemia: (4) History of permanent cardiac pacemaker placement: (5) Chronic anticoagulation: (6) Right ventricular dysfunction: Total Time Total Time Spent Total Time Spent (In Minutes): <30 Discharge Plan Discharge Items Patient Disposition: Transfer Acute Care Hospital Reason For Visit: SURGICAL WOUND INFECTION Discharge Diagnosis: as above Activity: Per Instructions section Non-emergency contact: Primary Care Provider and Aviation Ordnance Officer Call non-emergency contact if: you have any medication questions and your symptoms worsen Follow-up/Referrals: Baljinder Robbins MD [Primary Care Provider] - Diet: Heart Healthy Addtl Attending Provider Instructions: Dilma Hogan is a 62-year-old female with past medical history of atrial fibrillation, mitral valve replacement on Coumadin who presented due to 3 days of swelling, redness, and fluid leakage from surgical site at left hip. Left hip surgical wound infection Received vancomycin and Zosyn in ED, zosyn d/c'd, started on rocephin. Continue on Vanco and rocephin Blood cultures drawn in ED, no growth thus far Consulted orthopedics Transferring to [facility] Hypokalemia, acute on chronic Likely due to multiple diuretics in the setting of chronic right heart dysfunction Continue daily KCl 40 mEq p.o. Additional 20meq today. Right ventricular dysfunction Continue home metolazone as needed, spironolactone 25 mg twice daily, torsemide 100 mg daily At this time does not seem overtly fluid overloaded, though she does have some chronic bilateral lower extremity edema with venous stasis changes As above monitor potassium Atrial fibrillation, history of valve repair Continue Coumadin Continue metoprolol DM2 Hold home metformin Sliding scale while admitted Depression, insomnia Continue home mirtazapine and melatonin as needed GERD Continue home omeprazole Pending Studies at Discharge: Yes (blood cultures) Stand-Alone Forms: My [facility] Skilled Items Patient informed of condition?: Yes DNR: No Discharge Level of Care: Other Communicable Disease: No Discharge Prognosis: Stable Lines: None Urinary Catheter: No Medications and DC Order Prescriptions: Continued multivitamin Tablet 1 tab PO DAILY mirtazapine 15 mg tablet 15 mg PO HS sennosides-docusate sodium [Senokot-S] 8.6-50 mg Tablet 1 tab-cap PO QDL PRN (Reason: Constipation) melatonin 3 mg Tablet 3 mg PO HS PRN (Reason: Sleep) acetaminophen [Tylenol Extra Strength] 500 mg Tablet 1,000 mg PO Q8H MDD 3250 MG/24 HOURS PRN (Reason: FEVER/CHRISTIAN) lidocaine 5 % Adhesive Patch,Medicated 1 patch TOPICAL DAILY PRN (Reason: Pain) Rx Instructions: leave on most painful area for up to 12 hrs hydroxyzine HCl 25 mg Tablet 25 mg PO Q6H PRN (Reason: Anxiety) ondansetron 4 mg Tablet,Disintegrating 4 mg PO Q4H PRN (Reason: NAUSEA/VOMITING) cephalexin 500 mg capsule 500 mg PO QID Rx Instructions: BEGIN 07/01/22 X 5 DAYS betamethasone valerate 0.1 % ointment 1 applic TOPICAL DAILY Rx Instructions: APPLY THIN FILM TO PSORIASIS AREAS (ARMS AND SHINS). omeprazole 40 mg capsule,delayed release(DR/EC) 40 mg PO AMPM potassium chloride 10 mEq Tablet Extended Release 40 meq PO QAM Rx Instructions: on days when taking metolazone, take two extra tablets of potassium that day. spironolactone 25 mg tablet 25 mg PO AMPM metolazone 2.5 mg tablet 2.5 mg PO DAILY PRN (Reason: Edema) metoprolol tartrate 25 mg tablet 25 mg PO QPM warfarin [Jantoven] 1 mg tablet 2 mg PO 3XWK Rx Instructions: TAKE 2MG EVERY WEDNESDAY/WEDNESDAY/WEDNESDAY. warfarin [Jantoven] 1 mg tablet 4 mg PO 4XWK Rx Instructions: TAKE 4MG EVERY WEDNESDAY/WEDNESDAY/WEDNESDAY/WEDNESDAY. metformin 500 mg Tablet Extended Release 24hr 500 mg PO BID torsemide 100 mg tablet 100 mg PO DAILY Rx Instructions: MAY TAKE AN EXTRA 1/2 TO 1 TABLET, IF DIRECTED Discontinued tamsulosin 0.4 mg Capsule 0.4 mg PO QAM Discharge Orders: Discharge Order (Routine); Ordered 07/04/22 Ordered By: Xavi Tate Admission Data Admit Date/Time: 07/03/22 20:33 Attending Provider: Gilles Alexis Admit Provider: Joshua Ceja Primary Care Provider: Baljinder Robbins Other Providers: Jack Jennings ; Guy Berman Other Interventions: Discharge Summary Assessment (RN) Last Done: 07/04/22 15:24 Supervising Physician Co-Signing Physician Notes I personally examined the patient and verified all mckeon points of history and e xam, discussed case, and agree with decision making with Dr Lea richardson [place] pending transfer. d/w ortho vitals noted nad heent nc at mmm breathing unlabored no accessory muscles good effort complicated hip infection - abx, transfer for definitive treatment hyperglycemia - notes that sugars generally not a problem. can dc fingersticks urinary incontinence - notes worse since flomax - can dc for transfer, otherwise as above Resident Activity Tracking Resident Involvement: Resident Care Provided Care Provided: Adult Hospital Medicine
[2022-07-04] MEDS ORDERED: WARFARIN SOD 4 MG TAB PO SCH (16:00)
[2022-07-04] MEDS ORDERED: TAMSULOSIN HCL 0.4 MG CAP PO SCH (16:30)
--- NOTE | 2022-07-04 18:42 | Billing Data ---
Date of Service July 04, 2022 Coding Level of Care Code D/C DAY MANAGEMENT <30 MINS
[2022-07-04] MEDS ORDERED: METOPROLOL TARTRATE 25 MG TAB PO SCH (21:00)
--- NOTE | 2022-07-05 20:02 | Billing Data ---
Date of Service July 05, 2022 Coding Level of Care Code 37254 Initial Inpt Care Lvl 3
--- NOTE | 2022-07-06 07:49 | Consultation Report ---
ORTHOPEDIC SURGERY CONSULTATION DATE OF SERVICE: 07/04/2022. Special attention to left hip drainage. HISTORY OF PRESENT ILLNESS: This is a 62-year-old female. Past medical history of atrial fibrillati on, mitral valve replacement, on Coumadin, presents with 4 days of swelling and pain, drainage from t he left hip. She is status post anterior approach for total hip arthroplasty done 05/2022. This was done by, Dr. Han at [facility]. She is pending transfer to [facility], but was unable to be transferred yesterday was admitted for antibiotics. PHYSICAL EXAMINATION: GENERAL: The patient is observed to able to ambulate without difficulty with a walker. EXTREMITIES: Left hip exam, she has a large sinus tract with a moderate amount of serous drainage. S inus tract does show active drainage. She has large fluid accumulation in the left hip. Compartment s are soft. She can flex and extend her ankle. Bilateral lower extremities showed 2+ pitting edema. PAST MEDICAL HISTORY: Includes a previous admission for hip hematoma. INR is supratherapeutic at at point in time and she was treated at [facility] in [place]. PAST MEDICAL HISTORY: Includes hypokalemia, atrial fibrillation, status post valve repair, type 2 di abetes, depression, insomnia, GERD. ASSESSMENT: Left hip hematoma versus seroma versus infection. PLAN: I reviewed the CAT scan, which show large fluid accumulation, does not appear to track down to the prosthesis and the prosthesis does appear to be intact without evidence of fracture or loosening . Recommendation is a transfer as planned to [facility] [place] for further evaluation by her treating surgeon. It is possible she will need further surgical I and D. Job ID: [id number]
== END 2022-07-04 16:20 | disposition short-term general hospital (02) | DRG 863 ==
LOC: ED 12:42 → 3N 20:33 → SUATTDRO 20:33 → 3N 23:07

== ENCOUNTER 2023-01-21 15:24 | Inpatient (IN) ==
[2023-01-21] MEDS ORDERED: SODIUM CHLORIDE 0.9% 1000ML 1,000 ML IV ONE (16:54)
--- NOTE | 2023-01-21 16:59 | Emergency Department Note ---
Impression & Plan GI bleed ED Provider Note INFORMANT: Patient ED PROVIDER(S): Micah Dunbar DO CHIEF COMPLAINT: Rectal bleeding PLAN: Disposition: Admission Outpatient prescription management: none Discussion with: I spoke with the hospitalist, who will see the patient for admission/observation and further evaluation and consultation. MEDICAL DECISION MAKING: This is a 62-year-old female who presents to the ED with a chief complaint of bloody diarrhea. The patient states that she was released from [facility] yesterday after having been there for over a month. She was there for a open heart surgery. She states that she currently has a mechanical aortic valve and mechanical mitral valve. She is chronically on Coumadin. She states they were having trouble managing her Coumadin levels while she was there. Upon arriving home this morning around 1 AM, she developed 7 episodes of bloody diarrhea between then and now. She feels weak and tired. She also feels dehydrated. The patient reports that she did have a transfusion while at [facility]. The patient looks little pale on exam. She is in no acute distress. Her lungs are clear. Heart is regular rate rhythm. Abdomen soft and nontender. The patient's hemoglobin is 7.0. This is at or around her baseline from previous labs. The BUN is 68 and the creatinine is 1.24. Chemistry panel is otherwise unremarkable. Elevated BUN could be from recent diuresis from her hospitalization due to pedal edema or could be also related to digested blood from an upper GI bleed. The patient has an INR of 6.8. She was given 2.5 mg of IV vitamin K. The patient was also given some IV fluids during her ED stay. She was given IV Protonix bolus and drip. The patient was seen by the hospitalist for further evaluation and care. Triage Nursing notes reviewed. Vital Signs: reviewed Prior /Outside records reviewed: [none] Differential diagnosis: Upper GI bleed, lower GI bleed, anemia, electrolyte abnormality, dehydration, kidney failure, Coumadin related coagulopathy other. Diagnostics, as interpreted by me: 12 lead ECG: Paced ventricular rhythm at a rate of 76. Cardiac Monitoring ordered: Paced ventricular rhythm in the 70s. Medical decision rules: [none] Imaging studies: [none] Procedures: none. Critical care: none. HPI: See MDM above. PAST MEDICAL HISTORY: See Below PAST SURGICAL HISTORY: See Below SOCIAL HISTORY: See Below HOME MEDICATIONS:See Below ALLERGIES: See Below VITALS: See Below PHYSICAL EXAMINATION: See MDM for positive findings otherwise unremarkable. CONSTITUTIONAL/VITAL SIGNS: Reviewed GENERAL:done as appropriate INTEGUMENTARY: done as appropriate HEAD: done as appropriate EYES: done as appropriate RESPIRATORY: done as appropriate CARDIOVASCULAR:done as appropriate GI/ABDOMEN:done as appropriate EXTREMITIES: done as appropriate NEUROLOGICAL: done as appropriate PSYCHIATRIC:done as appropriate MUSCULOSKELETAL:done as appropriate TRIAGE NURSING DOCUMENTATION REVIEWED. Past Med/Surg History Medical History Acute blood loss anemia Acute exacerbation of chronic low back pain Acute kidney injury Anemia Anticoagulant-induced bleeding Atrial fibrillation Avascular necrosis of bone of left hip Chronic anticoagulation Chronic cor pulmonale Chronic left hip pain Chronic SI joint pain Depression Diverticular disease DM w/o complication type II high BSG in am, but normal A1C. Takes no medications. Elevated LDH Elevated LFTs Gallstones Hematoma of left thigh Hernia X2 Hyperkalemia Hyponatremia Leg length discrepancy Mitral stenosis Pacemaker Post traumatic stress disorder Pulmonary hypertension Rheumatic cardiomyopathy Right-sided heart failure Supratherapeutic INR Tricuspid stenosis Tricuspid stenosis, acquired due to prior tricuspid valve repair Surgical History H/O mitral valve replacement 1985, initial MVR at [facility] [address] [facility] Mechanical valve; INR goal 2.5-3.5 H/O tricuspid valve repair H/O tricuspid valve repair initial - 1985; repeat TV repair 2004 H/O tricuspid valve repair H/O tympanostomy History of bilateral tubal ligation History of cardiac cath 1983, 2003, NO STENTS ROUTINE History of cardiac radiofrequency ablation for a.fib - 2003 History of endoscopic sinus surgery ATTEMPTED TO CAUTERIZE 05/14, UNABLE, PATIENT IN PAIN AND BLEEDING History of permanent cardiac pacemaker placement 2019 - placed due to complete heart block interrogated february 2020 History of placement of ear tubes History of tubal ligation S/P MVR (mitral valve replacement) S/P ORIF (open reduction internal fixation) fracture Left hip July 2019 [place] teeth removed Family History Mother , 60s Gastric cancer Father , age 65 Lung cancer Social History Smoking Status: Former smoker packs per day: 0.5; Cigarettes Per Day: 10; Smoking End Date: 2019; Second Hand Exposure: No; Do You Dip or Chew Tobacco: No; Hx Alcohol Use: No Hx Substance Use: No Preferred Language: Citizen Of [place] Communication Ability: Effective Visual Impairment: Limited Hearing Ability: Normal Physicist Acoustics Required: No Beliefs That Will Affect Care: None marital status: marital status details: 1 son Current Living Situation: Alone Current Living Situation Comment: Patient lives alone in a second story apartment current occupational status: employed 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 Other Information That Helps Us Care for You: No Feels Safe at Home: Yes Safety Concerns: Feels Safe At This Time Diet Comment: Mediterranean caffeine: Yes during the past year weight has: increased > 10 lbs Assistive Devices: Cane Allergies Allergies Allergy/AdvReac Type Severity Reaction Status Date / Time adhesive Allergy Intermediate rash Verified 01/21/23 17:49 fluoxetine Allergy Intermediate Rash Verified 01/21/23 17:49 mushroom Allergy Intermediate EYES Verified 01/21/23 17:49 SWELLED hydrocodone Allergy Unknown ON MED LIST Verified 01/21/23 17:49 levofloxacin [From Levaquin] Allergy Unknown ON MED LIST Verified 01/21/23 17:49 azithromycin AdvReac Severe Tachycardia Verified 01/21/23 17:49 [From Zithromax Z-Anton] /A-FIB Estrogens AdvReac Severe CHF Verified 01/21/23 17:49 lorazepam AdvReac Severe mental Verified 01/21/23 17:49 status change prednisone AdvReac Severe LOW BP D/T Verified 01/21/23 17:49 FLUID SHIFT acetaminophen [From Tylenol] AdvReac Intermediate D/T LIVER Verified 01/21/23 17:49 ISSUES aspirin AdvReac Intermediate CONTRAINDICATED Verified 01/21/23 17:49 WITH COUMADIN PER PT. cephalexin AdvReac Intermediate Tachycardia Verified 01/21/23 17:49 codeine AdvReac Intermediate Shakiness Verified 01/21/23 17:49 Corticosteroids AdvReac Intermediate HYPOTENSION Verified 01/21/23 17:49 (Glucocorticoids) doxycycline AdvReac Intermediate LEGS SWELL Verified 01/21/23 17:49 fluocinonide AdvReac Intermediate Tachycardia Verified 01/21/23 17:49 NSAIDS (Non-Steroidal AdvReac Intermediate HYPOTENSION Verified 01/21/23 17:49 Anti-Inflamma zolpidem [From Ambien] AdvReac Intermediate MENTAL Verified 01/21/23 17:49 STATUS CHANGE Anti-Depressents Allergy Unknown SEE COMMENT Uncoded 01/21/23 17:49 Home Meds Home Medications Medication Instructions Recorded Confirmed warfarin 1 mg tablet (Jantoven) 2 mg PO 3XWK 07/03/22 01/21/23 warfarin 1 mg tablet (Jantoven) 4 mg PO 4XWK 07/03/22 01/21/23 torsemide 100 mg tablet 100 mg PO BID 10/05/22 01/21/23 coenzyme Q10 100 mg capsule 100 mg PO DAILY 01/21/23 01/21/23 (CoQ-10) ferrous sulfate 325 mg (65 mg 325 mg PO DIRECTED PRN 01/21/23 01/21/23 iron) tablet,delayed release NEEDED PER MED LIST hydroxyzine HCl 10 mg tablet 10 mg PO Q8H PRN Anxiety 01/21/23 01/21/23 magnesium oxide 400 mg (241.3 mg 400 mg PO BID 01/21/23 01/21/23 magnesium) tablet metoprolol succinate 25 mg 25 mg PO QAM 01/21/23 01/21/23 tablet,extended release 24 hr mirtazapine 7.5 mg tablet 22.5 mg PO HS 01/21/23 01/21/23 multivitamin-iron 9 mg-folic acid 1 tab PO QAM 01/21/23 01/21/23 400 mcg-calcium and minerals tablet (Thera M Plus (ferrous fumarate)) oxycodone 5 mg tablet 5 mg PO Q6H PRN Pain 01/21/23 01/21/23 pantoprazole 20 mg tablet,delayed 20 mg PO DAILYBB 01/21/23 01/21/23 release potassium chloride 20 mEq 40 meq PO BID 01/21/23 01/21/23 tablet,extended release(part/cryst) sennosides 8.6 mg-docusate sodium 1 tab-cap PO BID 01/21/23 01/21/23 50 mg tablet (Senna-S) sevelamer carbonate 800 mg tablet 800 mg PO TIDM 01/21/23 01/21/23 (Renvela) Results & Data (ED) Vital Signs Vital Signs - 24 hr 01/21/23 15:25 01/21/23 15:28 01/21/23 16:18 Temperature 36.9 C Temperature Source Oral Pulse Rate 71 73 Pulse Rate [Right Finger] Pulse Rhythm Regular Pulse Rhythm [Right Finger] Pulse Strength Normal Pulse Strength [Right Finger] Respiratory Rate 18 Respiratory Effort / Characteristics Non-Labored Respiratory Depth Normal Respiratory Pattern Regular Blood Pressure 107/91 Blood Pressure [Right Arm] Blood Pressure Mean 96 Blood Pressure Mean [Right Arm] Blood Pressure Position Sitting Blood Pressure Position [Right Arm] Pulse Oximetry 99 Oxygen Delivery Method Room Air Room Air Sepsis Recent Fever Within 48 Hours No Sepsis New/Unexplained Change in Mental Status N/A Sepsis Action Taken by Nursing No Action Required 01/21/23 17:00 01/21/23 19:11 01/21/23 19:23 Temperature Temperature Source Pulse Rate 76 Pulse Rate [Right Finger] 65 70 Pulse Rhythm Pulse Rhythm [Right Finger] Regular Pulse Strength Pulse Strength [Right Finger] Normal Respiratory Rate 18 18 Respiratory Effort / Characteristics Non-Labored Non-Labored Respiratory Depth Normal Normal Respiratory Pattern Regular Blood Pressure Blood Pressure [Right Arm] 107/61 99/59 L Blood Pressure Mean Blood Pressure Mean [Right Arm] 76 72 Blood Pressure Position Blood Pressure Position [Right Arm] Lying Pulse Oximetry 95 97 Oxygen Delivery Method Room Air Room Air Sepsis Recent Fever Within 48 Hours Sepsis New/Unexplained Change in Mental Status Sepsis Action Taken by Nursing 01/21/23 19:44 01/21/23 19:44 01/21/23 20:00 Temperature Temperature Source Pulse Rate 71 Pulse Rate [Right Finger] 73 Pulse Rhythm Pulse Rhythm [Right Finger] Pulse Strength Pulse Strength [Right Finger] Respiratory Rate 18 16 Respiratory Effort / Characteristics Respiratory Depth Respiratory Pattern Blood Pressure 115/69 Blood Pressure [Right Arm] 115/69 Blood Pressure Mean 77 Blood Pressure Mean [Right Arm] 84 Blood Pressure Position Blood Pressure Position [Right Arm] Pulse Oximetry 97 Oxygen Delivery Method Room Air Sepsis Recent Fever Within 48 Hours Sepsis New/Unexplained Change in Mental Status Sepsis Action Taken by Nursing Laboratory Data 01/21/23 16:36 01/21/23 16:36 Lab Results 01/21/23 01/21/23 01/21/23 Range/Units 16:36 16:36 16:36 WBC 6.85 (4.8-10.8) K/ul RBC 2.17 L (4.20-5.40) M/uL Hgb 7.0 L (12.0-16.0) g/dl Hct 21.5 L (37.0-47.0) % MCV 99.1 (80.0-100.0) fL MCH 32.3 (25.0-34.0) pg MCHC 32.6 (32.0-36.0) g/dL RDW Std Deviation 72.4 H (36.4-46.3) fL RDW Coeff of Dunia 20.1 H (11.5-14.5) % Plt Count 235 (130-400) K/uL MPV 9.9 (9.4-12.4) fL PT 65.7 H (9.0-12.0) Seconds INR 6.8 H* (0.9-1.1) APTT 51.8 H* (21.0-31.0) Seconds PTT Ratio 1.8 Sodium (136-145) mmol/L Potassium (3.5-5.1) mmol/L Chloride (98-107) mmol/L Carbon Dioxide (21-32) mmol/L Anion Gap (3-11) BUN (6-23) mg/dl Creatinine (0.6-1.2) mg/dl Est Cr Clr Drug Dosing ml/min Est GFR ( Amer) ml/min Est GFR (Non-Af Amer) ml/min BUN/Creatinine Ratio (10-20) Glucose (70-99(Fasting)) mg/dl Calcium (8.6-10.3) mg/dl Phosphorus (2.5-4.9) mg/dl Magnesium (1.7-2.4) mg/dl Total Bilirubin (0.2-1.0) mg/dl AST (13-39) U/L ALT (7-52) U/L Alkaline Phosphatase (34-104) U/L Troponin I High Sens (0-14) pg/ml Total Protein (6.0-8.3) gm/dl Albumin (3.4-5.0) gm/dl Globulin (2.5-4.0) gm/dl Albumin/Globulin Ratio (0.9-2) POC Stool Occult Blood (Negative) SARS-CoV-2, RNA, NAAT (NEGATIVE) Blood Type O Positive Antibody Screen POSITIVE A 01/21/23 01/21/23 01/21/23 Range/Units 16:36 19:00 19:49 WBC (4.8-10.8) K/ul RBC (4.20-5.40) M/uL Hgb (12.0-16.0) g/dl Hct (37.0-47.0) % MCV (80.0-100.0) fL MCH (25.0-34.0) pg MCHC (32.0-36.0) g/dL RDW Std Deviation (36.4-46.3) fL RDW Coeff of Dunia (11.5-14.5) % Plt Count (130-400) K/uL MPV (9.4-12.4) fL PT (9.0-12.0) Seconds INR (0.9-1.1) APTT (21.0-31.0) Seconds PTT Ratio Sodium 144 (136-145) mmol/L Potassium 3.9 (3.5-5.1) mmol/L Chloride 108 H (98-107) mmol/L Carbon Dioxide 30 (21-32) mmol/L Anion Gap 6 (3-11) BUN 68 H (6-23) mg/dl Creatinine 1.24 H (0.6-1.2) mg/dl Est Cr Clr Drug Dosing 44.6 ml/min Est GFR ( Amer) 54.3 ml/min Est GFR (Non-Af Amer) 46.8 ml/min BUN/Creatinine Ratio 54.8 H (10-20) Glucose 111 H (70-99(Fasting)) mg/dl Calcium 8.7 (8.6-10.3) mg/dl Phosphorus 2.6 (2.5-4.9) mg/dl Magnesium 2.0 (1.7-2.4) mg/dl Total Bilirubin 0.8 (0.2-1.0) mg/dl AST 27 (13-39) U/L ALT 6 L (7-52) U/L Alkaline Phosphatase 88 (34-104) U/L Troponin I High Sens 13.8 (0-14) pg/ml Total Protein 6.4 (6.0-8.3) gm/dl Albumin 3.2 L (3.4-5.0) gm/dl Globulin 3.2 (2.5-4.0) gm/dl Albumin/Globulin Ratio 1.0 (0.9-2) POC Stool Occult Blood Positive A (Negative) SARS-CoV-2, RNA, NAAT NEGATIVE (NEGATIVE) Blood Type Antibody Screen Administered Medications Pantoprazole Sodium 40 mg/ (Dextrose) 100 mls @ 20 mls/hr IV Q5H MIKIE Stop: 02/20/23 18:44 Last Admin: 01/21/23 19:44 Dose: 8 mg/hr, 20 mls/hr Documented By: PATRIZIA Lactated Ringer's (Lr) 1,000 mls @ 125 mls/hr IV .Q8H MIKIE Stop: 01/22/23 06:09 Last Admin: 01/21/23 23:10 Dose: 125 mls/hr Documented By: ROMEO Mirtazapine (Mirtazapine Tab 15 Mg Tab) 22.5 mg PO HS MIKIE Stop: 02/20/23 22:09 Last Admin: 01/21/23 23:06 Dose: 22.5 mg Documented By: ROMEO Discontinued Medications Sodium Chloride (Nss 1000ml) 1,000 mls @ 999 mls/hr IV .Q1H1M ONE Stop: 01/21/23 17:54 Last Infusion: 01/21/23 18:29 Dose: 0 mls/hr Documented By: Admin: 01/21/23 17:27 Dose: 999 mls/hr Documented By: JED Pantoprazole Sodium (Protonix Bolus/Drip) 0 mls @ 1 mls/hr IV ONE STA Stop: 01/21/23 18:22 Last Admin: 01/21/23 22:45 Dose: Not Given Documented By: CLC Pantoprazole Sodium 80 mg/ (Dextrose) 120 mls @ 400 mls/hr IV NOW ONE Stop: 01/21/23 18:38 Last Infusion: 01/21/23 20:22 Dose: 0 mls/hr Documented By: Admin: 01/21/23 19:07 Dose: 400 mls/hr Documented By: PATRIZIA Phytonadione 2.5 mg/ Dextrose 50.25 mls @ 100.5 mls/hr IV ONE ONE Stop: 01/21/23 19:33 Last Infusion: 01/21/23 20:22 Dose: 0 mls/hr Documented By: Admin: 01/21/23 19:47 Dose: 100.5 mls/hr Documented By: DS Discharge Plan Visit Data Chief Complaint: Rectal Bleed Stated Complaint: RECTAL BLEED ED Provider: Micah Dunbar Discharge Problem: GI bleed Patient Disposition: Admitted As Inpatient Discharge Instructions Interventions: ED Discharge Assessment Last Done: 01/21/23 21:34
[2023-01-21 17:06] LABS: Hematocrit (blood only) 21.5 % (37.0-47.0); Mean Corpuscular Hemoglobin 32.3 pg (25.0-34.0); Mean Corpuscular Hgb Conc 32.6 g/dL (32.0-36.0); Mean Corpuscular Volume 99.1 fL (80.0-100.0); Mean Platelet Volume 9.9 fL (9.4-12.4); Platelet Count 235 K/uL (130-400); RDW Coefficient of Variation 20.1 % (11.5-14.5); RDW Standard Deviation 72.4 fL (36.4-46.3); Red Blood Count 2.17 M/uL (4.20-5.40); White Blood Count 6.85 K/ul (4.8-10.8)
[2023-01-21 17:20] LABS: Albumin Level 3.2 gm/dl (3.4-5.0); BUN Creatinine Ratio 54.8 (10-20); Bilirubin,Total 0.8 mg/dl (0.2-1.0); Calcium 8.7 mg/dl (8.6-10.3); Creatinine Clr Calc Pharmacy 44.6 ml/min; Est GFR (African American) 54.3 ml/min; Est GFR (Non-African American) 46.8 ml/min; Globulin 3.2 gm/dl (2.5-4.0); Potassium 3.9 mmol/L (3.5-5.1); Total Protein 6.4 gm/dl (6.0-8.3)
[2023-01-21 17:26] LABS: Troponin I High Sensitivity 13.8 pg/ml (0-14)
[2023-01-21] MEDS ORDERED: PANTOprazole 80 MG in DEXTROSE 5% 100 ML IV ONE (18:21)
[2023-01-21] MEDS ORDERED: PANTOPRAZOLE BOLUS/DRIP 1 EACH IV STA (18:21)
[2023-01-21] MEDS ORDERED: SODIUM CHLORIDE 0.9% 250 ML IV PRN ×2 (18:45→22:10)
[2023-01-21 18:53] LABS: Partial Thromboplastin Ratio 1.8; Prothrombin Time 65.7 Seconds (9.0-12.0)
[2023-01-21 18:55] LABS: INR 6.8 (0.9-1.1)
[2023-01-21 18:56] LABS: Partial Thromboplastin Time 51.8 Seconds (21.0-31.0)
[2023-01-21] MEDS ORDERED: PHYTONADIONE 2.5 MG in DEXTROSE 5% 50 ML IV ONE (19:04)
[2023-01-21] MEDS: PANTOprazole 40 MG in DEXTROSE 5% 100 ML IV SCH (19:44)
--- NOTE | 2023-01-21 20:06 | History & Physical Report ---
Date of Service January 21, 2023 Assessment & Plan (1) GI bleed: Plan: 62yo female with history of rheumatic heart disease s/p placement of mechanical AV and bioprosthetic TV on December 24, 2022 at [facility]. Patient already with [facility] mechanical MV in place. She is anticoagulated on Coumadin. She presents with multiple episodes of hematochezia. Patient with supratherapeutic INR of 6.8. Normochromic/normocytic anemia with Hgb of 7 and Hct of 21.5. Patient with RBC antibodies x 4. She has had a GIB in the past following a hip replacement. EGD performed at that time revealed 3 gastric ulcers. She was treated with a PPI with improvement. Possible UGIB. BUN is elevated at 68. INR is elevated at 6.8. She has been administered 2.5mg IV Vitamin K in the ER. -Admit to PCU -Maintain 2 large bore PIVs -Continue Protonix gtt -Consider Octreotide if bleeding continues -Repeat CBC and INR at 01:00. If INR worse will administer additional Vitamin K -Transfuse PRBCs when blood becomes available. Have been in contact with blood bank - they are unsure when the blood will become available. Should patient continue to bleed or the bleeding becomes more severe/life threatening will administer TypeONeg and monitor for transfusion reaction in MICU. -GI Consultation appreciated -Hold Metoprolol given active bleed and hypotension -Hold Torsemide given hypotension (2) Supratherapeutic INR: Plan: Patient with elevated INR of 6.8 with active GIB. She is presently on Coumadin for a recently placed mechanical aortic valve as well as a longstanding mechanical mitral valve. She reports that her INR was difficult to control while at [facility]. Also reports poor oral intake over the last several weeks - ?Vitamin K deficiency? She has been administered Vitamin K 2.5mg IV -Repeat CBC and INR at 01:00. Expect improvement in INR. If worse will administer additional Vitamin K -Hematology consultation appreciated to aide with anticoagulation management (3) H/O mechanical aortic valve replacement: Plan: Patient with longstanding history of mechanical mitral valve. She had recent placement of mechanical aortic marco at [facility] on 12/24/22. She is anticoagulated on Coumadin presently with supratherapeutic INR of 6.8 and active GIB as above. Vitamin K given -Monitor INR -Hematology consultation appreciated to assist with anticoagulation (4) Depression: Plan: Patient appears anxious at present -Continue Hydroxyzine PRN -Continue Mirtazapine qHS (5) DM w/o complication type II: Plan: Diet controlled -Check HgbA1C -Monitor blood sugar F/E/N - LR at 125ml/hr x 1L, monitor electrolytes and replete as needed, NPO Ppx - Protonix gtt Code - Full per discussion with patient Dispo - Admit to PCU History of Present Illness Chief Complaint: Bright red blood per rectum Primary Care Provider: Fabby Whitmore Dilma Hogan is a pleasant 62-year-old female with history of atrial fibrillation status post multiple cardioversions, pacer in place, anticoagulated on Coumadin, diabetes, heart failure with preserved EF, rheumatic cardiomyopathy presenting with multiple episodes of bright red blood per rectum. Patient was recently admitted to [facility] from 12/11/22 --> 01/20/23. She presented as an elective admission for valvular heart surgery - was being considered for transcatheter TV replacement. On 12/24/22 she had an aortic valve replacement with a mechanical valve as well as placement of a bioprosthetic tricuspid valve by redo median sternotomy performed by Dr. Frandy Cantu. Patient reports that the surgery went well. Per record review, it seems that she had transfusion of FFP x 1 unit, Platelets x 1 unit and 5 units of PRBCs during her hospitalization. She was initially anticoagulated with a heparin gtt then transitioned to Coumadin. She reports that her INR was difficult to control during her hospital stay. She also had a UTI which was treated with a course of antibiotics. She stated that she had a very poor appetite following her surgery and was not able to eat much at all. She did not have a bowel movement for 5 days following her surgery. She was given Dulcolax and Metamucil and finally had a BM and noted some bright red blood on the toilet paper. She had another BM prior to discharge from [facility] with no notable blood. She reports her last unit of PRBCs was administered on 01/18/23 evening This morning the patient reports no appetite. She had multiple large, bloody bowel movements at home x 7 which prompted her to come to the ER. She denies abdominal pain, rectal pain, nausea, vomiting. Denies chest pain, cough, SOB, dizziness or syncope. Patient has had 2 bloody bowel movements since being in the ER. She reports that the amount of blood as well as the urgency has decreased. Patient did have an UGIB in the past following a hip surgery in May 2022. She had an EGD performed which revealed 3 gastric ulcers. She was treated with PPI and the bleeding resolved. She did not have a colonoscopy at that time. She did have a screening colonoscopy at age 51 (appx 11 years ago) and denies presence of hemorrhoids, polyps or diverticuli at that time (although she does have diverticular disease listed on her problem list). In the ER patient is afebrile, blood pressure has been low to 86/48. She has been typed and crossed for PRBCs. Unfortunately, she has 4 antibodies - her blood is presently being sent to [facility] by fuel oil truck driver for additional testing and matching. ER Course: Protonix bolus and gtt NSS x 1L Vitamin K x 2.5mg IV Allergies Allergy/AdvReac Type Severity Reaction Status Date / Time adhesive Allergy Intermediate rash Verified 01/21/23 17:49 fluoxetine Allergy Intermediate Rash Verified 01/21/23 17:49 mushroom Allergy Intermediate EYES Verified 01/21/23 17:49 SWELLED hydrocodone Allergy Unknown ON MED LIST Verified 01/21/23 17:49 levofloxacin [From Levaquin] Allergy Unknown ON MED LIST Verified 01/21/23 17:49 azithromycin AdvReac Severe Tachycardia Verified 01/21/23 17:49 [From Zithromax Z-Anton] /A-FIB Estrogens AdvReac Severe CHF Verified 01/21/23 17:49 lorazepam AdvReac Severe mental Verified 01/21/23 17:49 status change prednisone AdvReac Severe LOW BP D/T Verified 01/21/23 17:49 FLUID SHIFT acetaminophen [From Tylenol] AdvReac Intermediate D/T LIVER Verified 01/21/23 17:49 ISSUES aspirin AdvReac Intermediate CONTRAINDICATED Verified 01/21/23 17:49 WITH COUMADIN PER PT. cephalexin AdvReac Intermediate Tachycardia Verified 01/21/23 17:49 codeine AdvReac Intermediate Shakiness Verified 01/21/23 17:49 Corticosteroids AdvReac Intermediate HYPOTENSION Verified 01/21/23 17:49 (Glucocorticoids) doxycycline AdvReac Intermediate LEGS SWELL Verified 01/21/23 17:49 fluocinonide AdvReac Intermediate Tachycardia Verified 01/21/23 17:49 NSAIDS (Non-Steroidal AdvReac Intermediate HYPOTENSION Verified 01/21/23 17:49 Anti-Inflamma zolpidem [From Ambien] AdvReac Intermediate MENTAL Verified 01/21/23 17:49 STATUS CHANGE Anti-Depressents Allergy Unknown SEE COMMENT Uncoded 01/21/23 17:49 Home Medications Medication Instructions Recorded Confirmed Type warfarin 1 mg tablet (Jantoven) 2 mg PO 3XWK 07/03/22 01/21/23 History warfarin 1 mg tablet (Jantoven) 4 mg PO 4XWK 07/03/22 01/21/23 History torsemide 100 mg tablet 100 mg PO BID 10/05/22 01/21/23 History coenzyme Q10 100 mg capsule 100 mg PO DAILY 01/21/23 01/21/23 History (CoQ-10) ferrous sulfate 325 mg (65 mg 325 mg PO DIRECTED PRN 01/21/23 01/21/23 History iron) tablet,delayed release NEEDED PER MED LIST hydroxyzine HCl 10 mg tablet 10 mg PO Q8H PRN Anxiety 01/21/23 01/21/23 History magnesium oxide 400 mg (241.3 mg 400 mg PO BID 01/21/23 01/21/23 History magnesium) tablet metoprolol succinate 25 mg 25 mg PO QAM 01/21/23 01/21/23 History tablet,extended release 24 hr mirtazapine 7.5 mg tablet 22.5 mg PO HS 01/21/23 01/21/23 History multivitamin-iron 9 mg-folic acid 1 tab PO QAM 01/21/23 01/21/23 History 400 mcg-calcium and minerals tablet (Thera M Plus (ferrous fumarate)) oxycodone 5 mg tablet 5 mg PO Q6H PRN Pain 01/21/23 01/21/23 History pantoprazole 20 mg tablet,delayed 20 mg PO DAILYBB 01/21/23 01/21/23 History release potassium chloride 20 mEq 40 meq PO BID 01/21/23 01/21/23 History tablet,extended release(part/cryst) sennosides 8.6 mg-docusate sodium 1 tab-cap PO BID 01/21/23 01/21/23 History 50 mg tablet (Senna-S) sevelamer carbonate 800 mg tablet 800 mg PO TIDM 01/21/23 01/21/23 History (Renvela) Past Med/Surg History Medical History Acute blood loss anemia Acute exacerbation of chronic low back pain Acute kidney injury Anemia Anticoagulant-induced bleeding Atrial fibrillation Avascular necrosis of bone of left hip Chronic anticoagulation Chronic cor pulmonale Chronic left hip pain Chronic SI joint pain Depression Diverticular disease DM w/o complication type II high BSG in am, but normal A1C. Takes no medications. Elevated LDH Elevated LFTs Gallstones Hematoma of left thigh Hernia X2 Hyperkalemia Hyponatremia Leg length discrepancy Mitral stenosis Pacemaker Post traumatic stress disorder Pulmonary hypertension Rheumatic cardiomyopathy Right-sided heart failure Supratherapeutic INR Tricuspid stenosis Tricuspid stenosis, acquired due to prior tricuspid valve repair Surgical History H/O mitral valve replacement 1985, initial MVR at [facility] [address] [facility] Mechanical valve; INR goal 2.5-3.5 H/O tricuspid valve repair H/O tricuspid valve repair initial - 1985; repeat TV repair 2004 H/O tricuspid valve repair H/O tympanostomy History of bilateral tubal ligation History of cardiac cath 1983, 2003, NO STENTS ROUTINE History of cardiac radiofrequency ablation for a.fib - 2003 History of endoscopic sinus surgery ATTEMPTED TO CAUTERIZE 05/14, UNABLE, PATIENT IN PAIN AND BLEEDING History of permanent cardiac pacemaker placement 2018 - placed due to complete heart block interrogated february 2020 History of placement of ear tubes History of tubal ligation S/P MVR (mitral valve replacement) S/P ORIF (open reduction internal fixation) fracture Left hip July 2019 [place] teeth removed Family History Mother , 60s Gastric cancer Father , age 65 Lung cancer Social History Smoking Status: Former smoker packs per day: 0.5; Cigarettes Per Day: 10; Second Hand Exposure: No; Do You Dip or Chew Tobacco: No; Hx Alcohol Use: Yes Alcohol type: wine Hx Substance Use: No Preferred Language: Mauritian Communication Ability: Effective Visual Impairment: Limited Hearing Ability: Normal Check Processing Clerk Required: No Beliefs That Will Affect Care: None marital status: marital status details: 1 son Current Living Situation: Alone Current Living Situation Comment: PATIENT DOES HAVE ANY FRIENDS/FAMILY. 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 Feels Safe at Home: Yes Diet Comment: Mediterranean caffeine: Yes during the past year weight has: increased > 10 lbs Assistive Devices: Cane, Glasses and Walker Review of Systems Review of Systems: All systems reviewed & are unremarkable except as noted in HPI & below Physical Exam Physical Exam: General: patient resting comfortably, NAD, non-toxic in appearance, AA&O x 4, anxious Skin: warm, dry, no rashes or lesions, midline sternotomy incision with no bleeding, drainage, erythema or dehiscence HEENT: NC/AT, PERRL, EOMI, anicteric sclera, conjunctiva without injection, external ear normal to inspection and nontender, nares patent, moist mucus membranes, dentition intact, no oropharyngeal lesions, neck supple, trachea midline, no LAD, no thyromegaly, no JVD Heart: +S1/S2, regular, 4/6 CON across precordium with mid-systolic click audible, no rubs/gallops, stable sternum Lungs: equal air entry bilaterally, no rales/rhonchi/wheezes Abd: +BS, soft, NT/ND, no masses/organomegaly/ascites Ext: warm, 2+ pulses in UE/LE bilaterally, no clubbing/cyanosis, 1+ pitting edema, PIV x [address] Neuro: nonfocal, patient AA&O x 4, speech intact, no facial droop, moving all extremities on command with equal strength 5/5 Results & Data Results & Data Vital Signs (Past 12 Hours) Vital Signs Temp Pulse Pulse Resp BP BP Pulse Ox 01/21/23 19:44 73 18 115/69 97 01/21/23 19:23 76 01/21/23 19:11 70 18 99/59 L 97 01/21/23 17:00 65 18 107/61 95 01/21/23 16:18 01/21/23 15:28 73 01/21/23 15:25 36.9 C 71 18 107/91 99 O2 Del Method 01/21/23 19:44 Room Air 06/15/23 19:23 01/21/23 19:11 Room Air 01/21/23 17:00 Room Air 01/21/23 16:18 Room Air 01/21/23 15:28 01/21/23 15:25 Room Air Laboratory Results Laboratory Results WBC 6.85 K/ul (4.8-10.8) 01/21/23 16:36 RBC 2.17 M/uL (4.20-5.40) L 01/21/23 16:36 Hgb 7.0 g/dl (12.0-16.0) L 01/21/23 16:36 Hct 21.5 % (37.0-47.0) L 01/21/23 16:36 MCV 99.1 fL (80.0-100.0) 01/21/23 16:36 MCH 32.3 pg (25.0-34.0) 01/21/23 16:36 MCHC 32.6 g/dL (32.0-36.0) 01/21/23 16:36 RDW Std Deviation 72.4 fL (36.4-46.3) H 01/21/23 16:36 RDW Coeff of Dunia 20.1 % (11.5-14.5) H 01/21/23 16:36 Plt Count 235 K/uL (130-400) 01/21/23 16:36 MPV 9.9 fL (9.4-12.4) 01/21/23 16:36 PT 65.7 Seconds (9.0-12.0) H 01/21/23 16:36 INR 6.8 (0.9-1.1) H* 01/21/23 16:36 APTT 51.8 Seconds (21.0-31.0) H* 01/21/23 16:36 PTT Ratio 1.8 01/21/23 16:36 Sodium 144 mmol/L (136-145) 01/21/23 16:36 Potassium 3.9 mmol/L (3.5-5.1) 01/21/23 16:36 Chloride 108 mmol/L (98-107) H 01/21/23 16:36 Carbon Dioxide 30 mmol/L (21-32) 01/21/23 16:36 Anion Gap 6 (3-11) 01/21/23 16:36 BUN 68 mg/dl (6-23) H 01/21/23 16:36 Creatinine 1.24 mg/dl (0.6-1.2) H 01/21/23 16:36 Est Cr Clr Drug Dosing 44.6 ml/min 01/21/23 16:36 Est GFR ( Amer) 54.3 ml/min 01/21/23 16:36 Est GFR (Non-Af Amer) 46.8 ml/min 01/21/23 16:36 BUN/Creatinine Ratio 54.8 (10-20) H 01/21/23 16:36 Glucose 111 mg/dl (70-99(Fasting)) H 01/21/23 16:36 Calcium 8.7 mg/dl (8.6-10.3) 01/21/23 16:36 Total Bilirubin 0.8 mg/dl (0.2-1.0) 01/21/23 16:36 AST 27 U/L (13-39) 01/21/23 16:36 ALT 6 U/L (7-52) L 01/21/23 16:36 Alkaline Phosphatase 88 U/L (34-104) 01/21/23 16:36 Troponin I High Sens 13.8 pg/ml (0-14) 01/21/23 16:36 Total Protein 6.4 gm/dl (6.0-8.3) 01/21/23 16:36 Albumin 3.2 gm/dl (3.4-5.0) L 01/21/23 16:36 Globulin 3.2 gm/dl (2.5-4.0) 01/21/23 16:36 Albumin/Globulin Ratio 1.0 (0.9-2) 01/21/23 16:36 POC Stool Occult Blood Positive (Negative) A 01/21/23 19:00 SARS-CoV-2, RNA, NAAT NEGATIVE (NEGATIVE) 01/21/23 19:49 Blood Type O Positive 01/21/23 16:36 Antibody Screen POSITIVE A 01/21/23 16:36 ECG Additional Comments: EKG with ventricular pacing at 76bpm, non acute ischemic changes PG Care Time/CCT Total # of Minutes Spent Total Time Spent with Patient: Total time spent is greater than 50% in coordination of care (as documented) at patient's floor/unit and/or counseling patient: Coding Level of Care Code 61581 INT INP/OBS CARE MIN Diagnoses GI bleed K92.2 Supratherapeutic INR R79.1 H/O mechanical aortic valve replacement Z95.2 Depression F32.9 DM w/o complication type II E11.9 Diabetes mellitus middle or intermediate school principal insulin use: without retirement use (5) DM w/o complication type II Diabetes mellitus middle or intermediate school principal insulin use: without middle or intermediate school principal use Qualified Code(s): E11.9 - Type 2 diabetes mellitus without complications
[2023-01-21] MEDS ORDERED: ONDANSETRON INJ 2 MG/ML 2 ML VIAL IV PRN (22:10)
[2023-01-21] MEDS ORDERED: ACETAMINOPHEN 325 MG TAB PO PRN (22:10)
[2023-01-21] MEDS ORDERED: LACTATED RINGER'S 1,000 ML IV SCH (22:10)
[2023-01-21] MEDS ORDERED: oxyCODONE HCL IR 5 MG TAB (IMMEDIATE RELEASE) PO PRN (22:10)
[2023-01-21] MEDS ORDERED: hydrOXYzine HCl 10 MG TAB PO PRN (22:10)
[2023-01-21 22:38] LABS: Phosphorus 2.6 mg/dl (2.5-4.9)
[2023-01-21] MEDS: MIRTAZAPINE TAB 15 MG TAB PO SCH (23:06)
[2023-01-22] MEDS: PANTOprazole 40 MG in DEXTROSE 5% 100 ML IV SCH ×5 (00:32→22:42)
[2023-01-22 01:23] LABS: INR 3.2 (0.9-1.1); Prothrombin Time 32.2 Seconds (9.0-12.0)
[2023-01-22 01:24] LABS: Mean Corpuscular Hemoglobin 29.3 pg (25.0-34.0); Mean Corpuscular Volume 97.6 fL (80.0-100.0); Mean Platelet Volume 9.9 fL (9.4-12.4); Platelet Count 215 K/uL (130-400); RDW Coefficient of Variation 19.4 % (11.5-14.5); RDW Standard Deviation 66.4 fL (36.4-46.3); Red Blood Count 2.05 M/uL (4.20-5.40)
[2023-01-22] MEDS ORDERED: ALBUMIN 5% 250 ML IV ONE ×2 (01:54→02:48)
[2023-01-22 05:12] LABS: Hematocrit (blood only) 16.3 % (37.0-47.0); Hemoglobin 5.1 g/dl (12.0-16.0); Mean Corpuscular Hemoglobin 30.9 pg (25.0-34.0); Mean Corpuscular Hgb Conc 31.3 g/dL (32.0-36.0); Mean Corpuscular Volume 98.8 fL (80.0-100.0); Mean Platelet Volume 9.9 fL (9.4-12.4); Platelet Count 180 K/uL (130-400); RDW Coefficient of Variation 20.2 % (11.5-14.5); RDW Standard Deviation 73.2 fL (36.4-46.3); Red Blood Count 1.65 M/uL (4.20-5.40); White Blood Count 6.06 K/ul (4.8-10.8)
[2023-01-22 05:13] LABS: BUN Creatinine Ratio 51.8 (10-20); Calcium 7.8 mg/dl (8.6-10.3); Creatinine Clr Calc Pharmacy 49.4 ml/min; Est GFR (African American) 61.4 ml/min; Potassium 3.4 mmol/L (3.5-5.1)
[2023-01-22] MEDS ORDERED: diphenhydrAMINE Capsule 25 MG CAP PO ONE (05:22)
[2023-01-22] MEDS ORDERED: ACETAMINOPHEN 325 MG TAB PO ONE (05:22)
[2023-01-22] MEDS ORDERED: SODIUM CHLORIDE 0.9% 250 ML IV PRN (05:22)
[2023-01-22 05:23] LABS: INR 2.4 (0.9-1.1); Prothrombin Time 25.2 Seconds (9.0-12.0)
[2023-01-22 07:35] LABS: Estimated Average Glucose 100 mg/dl; Hemoglobin A1C 5.1 % (4.5-5.6)
--- NOTE | 2023-01-22 07:51 | Hospitalist Progress Note ---
Date of Service January 22, 2023 Assessment & Plan (1) Severe anemia: Plan: Severe acute blood loss anemia secondary to GI bleed Hgb 5.1 on admission in the setting of supratherapeutic INR of 6.8 (below) 01/22: transfused 3u pRBC CTA without overt source of bleeding GI initially planned for colonoscopy, but then discussed with our anesthesia team who is not comfortable sedating patient without additional units of blood on hand Patient will be transferred to [facility] d/t inability for us to intervene given the above Transfer accepted by [facility], awaiting bed Transfer paperwork complete Continue octreotide gtt, continue protonix gtt Supratherapeutic INR INR on admission 6.8 in the setting of warfarin therapy for mechanical AV/TR valves Home warfarin on hold Patient was given vitamin K 2.5mg IV; INR improved to 2.4 GI career consultant discussed this with CT surgery at [facility], they recommend additional 2.5mg IV - will order placed at 17:45 on 01/22 Trend INR Hypoxia, fluid overload 01/22 @ 17:00 - patient developed mild hypoxia (88%) in the setting of high fluid burden given blood transfusions Mild bibasilar crackles on exam Lasix 20mg IV (x1) ordered Further diuresis will likely be necessary given ongoing transfusions, but will approach this cautiously given borderline hypotension 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, anti-E, anti-Fya, anti-K, anti-S This significantly delays our obtaining units of blood and also reduces the supply able to be used in this patient We were able to get three units of the above from [place] but they do not have additional available Discussed this with transfer team at [facility], they are aware L FEN: NPO, blood transfusion in progress Code status: full code DVT ppx: contraindicated at this time Consults: gastroenterology, hematology Dispo: PCU, transfer to [facility] pending bed availability (2) Supratherapeutic INR: (3) Mitral valve replaced: (4) Chronic anticoagulation: (5) Fluid overload: (6) GI bleed: (7) H/O mechanical aortic valve replacement: Admission and Anticipated Discharge Date Admission Date: January 21, 2023 Supervising Physician Co-Signing Physician Notes Attending attestation Pt seen and examined in concert with Dr. Cole. In agreement with the documented findings as noted in the resident documentation with any exceptions or additions as noted here. Patient reports mild dizziness with laying down consistent with chronic positional dizziness previously present without any other symptoms beyond fatigue. 1-3 mack BM today per pt/nursing On examination, S1/S2 nl RRR 4/6 CON. CTAB. Abd NT/ND BS+ve Severe acute blood loss anemia 2/2 GIB - GI consult - 3U PRBC transfusing today. Octreotide initiated. Protonix GTT continued. Transfer per GI recommendation Supratherapeutic INR in the setting of recent valve replacement - per GI - d/w CT surgery encourages full reversal, additional Vit K ordered Hypoxia in the setting of multiple transfusion fluid overload - furosemide 20mg ordered, further doses based on response Transfusion antibodies - as noted above. Else see resident documentation as noted. Subjective Patient seen and evaluated at bedside this morning. Patient feels fatigued but has no acute complaints. Patient was frequently reassessed throughout the day. Patient has had three painless reddish-brown BMs today. Around 16:30 patient developed mild SOB and hypoxia to 88% which improved to the 90s on 2L NC. Diuresis was ordered. Patient otherwise feels well and denies CP, abdominal pain, nausea, and vomiting. Review of Systems Review of Systems: See HPI Physical Exam Physical Exam: Constitutional: tired-appearing, no acute distress CV: regular rhythm, systolic murmur appreciated, extremities well-perfused, no LE edema Resp: CTABL, no wheezes/rales/rhonchi appreciated, no increased work of breathing Repeat resp exam at 17:00: mild crackles at bases bilaterally, no increased WOB GI: soft, nondistended, nontender Skin: midline sternal scar appreciated Neuro: alert, oriented, no focal neurologic deficit appreciated Results & Data Results & Data Vital Signs (Past 12 Hours) Vital Signs Temp Pulse Pulse Resp BP BP Pulse Ox 01/22/23 05:22 36.6 C 70 16 91/48 L 93 01/22/23 02:56 36.6 C 70 16 94/58 L 93 01/21/23 22:10 71 01/22/23 01:42 36.7 C 71 16 81/47 L 96 01/21/23 22:34 36.7 C 70 17 96/55 L 96 01/21/23 21:15 70 18 93/58 L 99 01/21/23 21:10 70 18 86/48 L 99 01/21/23 20:45 103/52 L 01/21/23 20:45 70 17 100 01/21/23 20:40 16 98/64 L 01/21/23 20:37 73 16 01/21/23 20:19 70 19 98 01/21/23 20:19 105/70 01/21/23 20:08 16 99 01/21/23 20:08 103/46 L 01/21/23 20:00 71 16 01/21/23 20:08 77 16 103/46 L 99 O2 Del Method 01/22/23 05:22 Room Air 01/22/23 02:56 Room Air 01/21/23 22:10 01/22/23 01:42 Room Air 01/21/23 22:34 Room Air 01/21/23 21:15 01/21/23 21:10 Room Air 01/21/23 20:45 01/21/23 20:45 01/21/23 20:40 01/21/23 20:37 01/21/23 20:19 01/21/23 20:19 01/21/23 20:08 01/21/23 20:08 01/21/23 20:00 01/21/23 20:08 Room Air Resident Activity Tracking Resident Involvement: Resident Care Provided Care Provided: Adult Hospital Medicine
--- NOTE | 2023-01-22 08:25 | Oncology Consultation ---
Date of Consultation January 22, 2023 Assessment & Plan (1) GI bleed: (2) Atrial fibrillation: (3) Anemia: (4) Supratherapeutic INR: Plan -Regarding anticoagulation, she will need indefinite anticoagulation since she has a mechanical valve. Preferred option is Coumadin.Had supratherapeutic INR which likely contributed to bleeding but will need to rule out other causes of G.I bleeding. She would benefit from close followup with coumadin clinic to adjust doses when source of GI bleeding is identified and controlled. In the meantime, may consider utilizing therapeutic unfractionated Heparin while she is inpatient once bleeding resolves. -Agree with GI consult -She is has severe microcytic anemia secondary to iron deficiency from significant blood loss. Recommend checking iron studies, B12,folate levels. Would benefit from IV iron in addition to PRBC transfusion. Recommend IV venofer 200mg daily x 3 doses. Thank you for this consult.Feel free to call if you have any questions History of Present Illness Reason for Consultation: Anticoagulation recommendations Attending Physician: Ashok Carpenter MD History of Present Illness 62-year-old female with history of atrial fibrillation status post multiple cardioversions, rheumatic cardiomyopathy and recent history of aortic valve replacement with a mechanical valve as well as placement of a bioprosthetic tricuspid valve by redo median sternotomy on 12/24/2022 at [facility] for which she was placed on chronic anticoagulation with coumadin .She presented to the ER with GI bleeding (suspected lower G.I-BRBPR). Labs revealed supratherapeutic INR of 6.8 as well as hemoglobin of 7. She received 2.5mg IV Vit K with improvement of INR to 2.4. Hemoglobin is however now 5.1. She has several antibodies due to previous transfusions post surgery and so PRBC had to be requested from [facility] Today's consult was conducted remotely and i was unable to get history/physical so history above was obtained via review of records. Allergies Allergy/AdvReac Type Severity Reaction Status Date / Time adhesive Allergy Intermediate rash Verified 01/21/23 17:49 fluoxetine Allergy Intermediate Rash Verified 01/21/23 17:49 mushroom Allergy Intermediate EYES Verified 01/21/23 17:49 SWELLED hydrocodone Allergy Unknown ON MED LIST Verified 01/21/23 17:49 levofloxacin [From Levaquin] Allergy Unknown ON MED LIST Verified 01/21/23 17:49 azithromycin AdvReac Severe Tachycardia Verified 01/21/23 17:49 [From Zithromax Z-Anton] /A-FIB Estrogens AdvReac Severe CHF Verified 01/21/23 17:49 lorazepam AdvReac Severe mental Verified 01/21/23 17:49 status change prednisone AdvReac Severe LOW BP D/T Verified 01/21/23 17:49 FLUID SHIFT acetaminophen [From Tylenol] AdvReac Intermediate D/T LIVER Verified 01/21/23 17:49 ISSUES aspirin AdvReac Intermediate CONTRAINDICATED Verified 01/21/23 17:49 WITH COUMADIN PER PT. cephalexin AdvReac Intermediate Tachycardia Verified 01/21/23 17:49 codeine AdvReac Intermediate Shakiness Verified 01/21/23 17:49 Corticosteroids AdvReac Intermediate HYPOTENSION Verified 01/21/23 17:49 (Glucocorticoids) doxycycline AdvReac Intermediate LEGS SWELL Verified 01/21/23 17:49 fluocinonide AdvReac Intermediate Tachycardia Verified 01/21/23 17:49 NSAIDS (Non-Steroidal AdvReac Intermediate HYPOTENSION Verified 01/21/23 17:49 Anti-Inflamma zolpidem [From Ambien] AdvReac Intermediate MENTAL Verified 01/21/23 17:49 STATUS CHANGE Anti-Depressents Allergy Unknown SEE COMMENT Uncoded 01/21/23 17:49 Home Medications Medication Instructions Recorded Confirmed Type warfarin 1 mg tablet (Jantoven) 2 mg PO 3XWK 07/03/22 01/21/23 History warfarin 1 mg tablet (Jantoven) 4 mg PO 4XWK 07/03/22 01/21/23 History torsemide 100 mg tablet 100 mg PO BID 10/05/22 01/21/23 History coenzyme Q10 100 mg capsule 100 mg PO DAILY 01/21/23 01/21/23 History (CoQ-10) ferrous sulfate 325 mg (65 mg 325 mg PO DIRECTED PRN 01/21/23 01/21/23 History iron) tablet,delayed release NEEDED PER MED LIST hydroxyzine HCl 10 mg tablet 10 mg PO Q8H PRN Anxiety 01/21/23 01/21/23 History magnesium oxide 400 mg (241.3 mg 400 mg PO BID 01/21/23 01/21/23 History magnesium) tablet metoprolol succinate 25 mg 25 mg PO QAM 01/21/23 01/21/23 History tablet,extended release 24 hr mirtazapine 7.5 mg tablet 22.5 mg PO HS 01/21/23 01/21/23 History multivitamin-iron 9 mg-folic acid 1 tab PO QAM 01/21/23 01/21/23 History 400 mcg-calcium and minerals tablet (Thera M Plus (ferrous fumarate)) oxycodone 5 mg tablet 5 mg PO Q6H PRN Pain 01/21/23 01/21/23 History pantoprazole 20 mg tablet,delayed 20 mg PO DAILYBB 01/21/23 01/21/23 History release potassium chloride 20 mEq 40 meq PO BID 01/21/23 01/21/23 History tablet,extended release(part/cryst) sennosides 8.6 mg-docusate sodium 1 tab-cap PO BID 01/21/23 01/21/23 History 50 mg tablet (Senna-S) sevelamer carbonate 800 mg tablet 800 mg PO TIDM 01/21/23 01/21/23 History (Renvela) Patient History Medical History Acute blood loss anemia Acute exacerbation of chronic low back pain Acute kidney injury Anemia Anticoagulant-induced bleeding Atrial fibrillation Avascular necrosis of bone of left hip Chronic anticoagulation Chronic cor pulmonale Chronic left hip pain Chronic SI joint pain Depression Diverticular disease DM w/o complication type II high BSG in am, but normal A1C. Takes no medications. Elevated LDH Elevated LFTs Gallstones Hematoma of left thigh Hernia X2 Hyperkalemia Hyponatremia Leg length discrepancy Mitral stenosis Pacemaker Post traumatic stress disorder Pulmonary hypertension Rheumatic cardiomyopathy Right-sided heart failure Supratherapeutic INR Tricuspid stenosis Tricuspid stenosis, acquired due to prior tricuspid valve repair Surgical History H/O mitral valve replacement 1985, initial MVR at [facility]); [address] [facility] Mechanical valve; INR goal 2.5-3.5 H/O tricuspid valve repair H/O tricuspid valve repair initial - 1985; repeat TV repair 2004 H/O tricuspid valve repair H/O tympanostomy History of bilateral tubal ligation History of cardiac cath 1983, 2003, NO STENTS ROUTINE History of cardiac radiofrequency ablation for a.fib - 2003 History of endoscopic sinus surgery ATTEMPTED TO CAUTERIZE 05/14, UNABLE, PATIENT IN PAIN AND BLEEDING History of permanent cardiac pacemaker placement 2019 - placed due to complete heart block interrogated february 2020 History of placement of ear tubes History of tubal ligation S/P MVR (mitral valve replacement) S/P ORIF (open reduction internal fixation) fracture Left hip July 2019 [place] teeth removed Family History Mother , 60s Gastric cancer Father , age 65 Lung cancer Social History Smoking Status: Former smoker packs per day: 0.5; Cigarettes Per Day: 10; Smoking End Date: 2019; Second Hand Exposure: No; Do You Dip or Chew Tobacco: No; Hx Alcohol Use: No Hx Substance Use: No Preferred Language: Nepali Communication Ability: Effective Visual Impairment: Limited Hearing Ability: Normal [employer] Detailer Required: No Beliefs That Will Affect Care: None marital status: marital status details: 1 son Current Living Situation: Alone Current Living Situation Comment: Patient lives alone in a second story apartment current occupational status: employed 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 Other Information That Helps Us Care for You: No Feels Safe at Home: Yes Safety Concerns: Feels Safe At This Time Diet Comment: Mediterranean caffeine: Yes during the past year weight has: increased > 10 lbs Assistive Devices: Cane Results & Data Vital Signs (Past 12 Hours) Vital Signs Temp Pulse Pulse Resp BP BP Pulse Ox 01/22/23 08:07 36.4 C L 70 17 94/61 L 91 01/22/23 05:22 36.6 C 70 16 91/48 L 93 01/22/23 02:56 36.6 C 70 16 94/58 L 93 01/21/23 22:10 71 01/22/23 01:42 36.7 C 71 16 81/47 L 96 01/21/23 22:34 36.7 C 70 17 96/55 L 96 01/21/23 21:15 70 18 93/58 L 99 01/21/23 21:10 70 18 86/48 L 99 01/21/23 20:45 103/52 L 01/21/23 20:45 70 17 100 06/15/23 20:40 16 98/64 L 01/21/23 20:37 73 16 O2 Del Method 01/22/23 08:07 Room Air 01/22/23 05:22 Room Air 01/22/23 02:56 Room Air 01/21/23 22:10 01/22/23 01:42 Room Air 01/21/23 22:34 Room Air 01/21/23 21:15 01/21/23 21:10 Room Air 01/21/23 20:45 01/21/23 20:45 01/21/23 20:40 01/21/23 20:37 (2) Atrial fibrillation Atrial fibrillation type: permanent Qualified Code(s): I48.2 - Chronic atrial fibrillation (3) Anemia Anemia type: other cause Other causes of anemia: other cause, not classified Qualified Code(s): D64.89 - Other specified anemias
[2023-01-22 09:54] LABS: Vitamin B12 > 1500 pg/ml (180-914)
[2023-01-22] MEDS: SEVELAMER HCL 800 MG TABLET PO SCH ×3 (10:09→18:07)
--- NOTE | 2023-01-22 11:05 | Electrocardiogram Report ---
Test Reason : Blood Pressure : / mmHG Vent. Rate : 076 BPM Atrial Rate : 094 BPM P-R Int : 000 ms QRS Dur : 186 ms QT Int : 486 ms P-R-T Axes : 000 -49 107 degrees QTc Int : 546 ms Ventricular-paced rhythm with occasional Premature ventricular complexes Abnormal ECG When compared with ECG of 07-AUG-2022 20:21, Premature ventricular complexes are now Present Confirmed by Guy Zaragoza ([id number]) on 01/22/2023 11:05:31 AM Referred By: REFERRED SELF Confirmed By:Jairon Zaragoza
--- NOTE | 2023-01-22 12:06 | Gastrointestinal Consultation ---
Date of Consultation January 22, 2023 Assessment & Plan (1) GI bleed: (2) H/O mechanical aortic valve replacement: (3) Elevated INR: Plan Patient is a 62 y.o. female with history of rheumatic heart disease s/p placement of mechanical AV and bioprosthetic TV on December 24, 2022 at [facility] admitted with acute blood loss anemia and melena in the setting of supratherapeutic INR. Diff dx: PUD vs AVM vs other. -NPO for now. -Continue PPI ggt at 8 mg/hr. -Transfuse per hospital protocol. -EGD once clinically stable. -Agree with INR reversal. -Continue supportive care per primary team. Thank you for allowing us to participating in the care of this patient. If you have any questions or concerns, please do not hesitate to contact me. Supervising Physician Co-Signing Physician Notes Agree with MAURO Darling as above Abd: Soft, NT, ND, +BS She was discharged Wednesday from [facility] following a prolonged stay due to cardiac surgery. She is currently receiving her 1st unit of blood with significant delay due to Ab's. She describes her stools as red/mack. She denies any abdominal pain. Discussed case with Dr. rBian Peterson of Anesthesiology who recommended transfusion of 3 u PRBC followed by recheck of H/H prior to any endoscopic workup. Recommend CTA now to r/o Lower GI bleed which would require IR transfer History of Present Illness Reason for Consultation: GIB Attending Physician: Ashok Carpenter MD History of Present Illness Patient is a female with history of rheumatic heart disease s/p placement of mechanical AV and bioprosthetic TV on December 24, 2022 at [facility] admitted with melena, and mack stools. She states she has been having a reduced appetite since her surgery. Has remained on Coumadin since discharge. On arrival, she was found to be profoundly anemic with a hemoglobin of 5.1 and hematocrit of 16.3%. She has been kept NPO and started on a PPI ggt. Patient is awaiting blood products which have been ordered from [facility]. She is ordered three units. INR is being reversed and is 2.4 this morning. Denies any n/v, abdominal pain, shortness of breath, dyspnea on exertion, chest pain, palpitations, syncope or fatigue. Last melanotic stool was last evening in the emergency department. States she was diagnosed with PUD that were nonbleeding in May of 2022 and did not require any endoscopic treatment. Allergies Allergy/AdvReac Type Severity Reaction Status Date / Time adhesive Allergy Intermediate rash Verified 01/21/23 17:49 fluoxetine Allergy Intermediate Rash Verified 01/21/23 17:49 mushroom Allergy Intermediate EYES Verified 01/21/23 17:49 SWELLED hydrocodone Allergy Unknown ON MED LIST Verified 01/21/23 17:49 levofloxacin [From Levaquin] Allergy Unknown ON MED LIST Verified 01/21/23 17:49 azithromycin AdvReac Severe Tachycardia Verified 01/21/23 17:49 [From Zithromax Z-Anton] /A-FIB Estrogens AdvReac Severe CHF Verified 01/21/23 17:49 lorazepam AdvReac Severe mental Verified 01/21/23 17:49 status change prednisone AdvReac Severe LOW BP D/T Verified 01/21/23 17:49 FLUID SHIFT acetaminophen [From Tylenol] AdvReac Intermediate D/T LIVER Verified 01/21/23 17:49 ISSUES aspirin AdvReac Intermediate CONTRAINDICATED Verified 01/21/23 17:49 WITH COUMADIN PER PT. cephalexin AdvReac Intermediate Tachycardia Verified 01/21/23 17:49 codeine AdvReac Intermediate Shakiness Verified 01/21/23 17:49 Corticosteroids AdvReac Intermediate HYPOTENSION Verified 01/21/23 17:49 (Glucocorticoids) doxycycline AdvReac Intermediate LEGS SWELL Verified 01/21/23 17:49 fluocinonide AdvReac Intermediate Tachycardia Verified 01/21/23 17:49 NSAIDS (Non-Steroidal AdvReac Intermediate HYPOTENSION Verified 01/21/23 17:49 Anti-Inflamma zolpidem [From Ambien] AdvReac Intermediate MENTAL Verified 01/21/23 17:49 STATUS CHANGE Anti-Depressents Allergy Unknown SEE COMMENT Uncoded 01/21/23 17:49 Home Medications Medication Instructions Recorded Confirmed Type warfarin 1 mg tablet (Jantoven) 2 mg PO 3XWK 07/03/22 01/21/23 History warfarin 1 mg tablet (Jantoven) 4 mg PO 4XWK 07/03/22 01/21/23 History torsemide 100 mg tablet 100 mg PO BID 10/05/22 01/21/23 History coenzyme Q10 100 mg capsule 100 mg PO DAILY 01/21/23 01/21/23 History (CoQ-10) ferrous sulfate 325 mg (65 mg 325 mg PO DIRECTED PRN 01/21/23 01/21/23 History iron) tablet,delayed release NEEDED PER MED LIST hydroxyzine HCl 10 mg tablet 10 mg PO Q8H PRN Anxiety 01/21/23 01/21/23 History magnesium oxide 400 mg (241.3 mg 400 mg PO BID 01/21/23 01/21/23 History magnesium) tablet metoprolol succinate 25 mg 25 mg PO QAM 01/21/23 01/21/23 History tablet,extended release 24 hr mirtazapine 7.5 mg tablet 22.5 mg PO HS 01/21/23 01/21/23 History multivitamin-iron 9 mg-folic acid 1 tab PO QAM 01/21/23 01/21/23 History 400 mcg-calcium and minerals tablet (Thera M Plus (ferrous fumarate)) oxycodone 5 mg tablet 5 mg PO Q6H PRN Pain 01/21/23 01/21/23 History pantoprazole 20 mg tablet,delayed 20 mg PO DAILYBB 01/21/23 01/21/23 History release potassium chloride 20 mEq 40 meq PO BID 01/21/23 01/21/23 History tablet,extended release(part/cryst) sennosides 8.6 mg-docusate sodium 1 tab-cap PO BID 01/21/23 01/21/23 History 50 mg tablet (Senna-S) sevelamer carbonate 800 mg tablet 800 mg PO TIDM 01/21/23 01/21/23 History (Renvela) Patient History Medical History Acute blood loss anemia Acute exacerbation of chronic low back pain Acute kidney injury Anemia Anticoagulant-induced bleeding Atrial fibrillation Avascular necrosis of bone of left hip Chronic anticoagulation Chronic cor pulmonale Chronic left hip pain Chronic SI joint pain Depression Diverticular disease DM w/o complication type II high BSG in am, but normal A1C. Takes no medications. Elevated LDH Elevated LFTs Gallstones Hematoma of left thigh Hernia X2 Hyperkalemia Hyponatremia Leg length discrepancy Mitral stenosis Pacemaker Post traumatic stress disorder Pulmonary hypertension Rheumatic cardiomyopathy Right-sided heart failure Supratherapeutic INR Tricuspid stenosis Tricuspid stenosis, acquired due to prior tricuspid valve repair Surgical History H/O mitral valve replacement 1985, initial MVR at [facility] ([facility]); [address] [facility] [employer] Mechanical valve; INR goal 2.5-3.5 H/O tricuspid valve repair H/O tricuspid valve repair initial - 1985; repeat TV repair 2004 H/O tricuspid valve repair H/O tympanostomy History of bilateral tubal ligation History of cardiac cath 1983, 2003, NO STENTS ROUTINE History of cardiac radiofrequency ablation for a.fib - 2003 History of endoscopic sinus surgery ATTEMPTED TO CAUTERIZE 05/14, UNABLE, PATIENT IN PAIN AND BLEEDING History of permanent cardiac pacemaker placement 2018 - placed due to complete heart block interrogated february 2020 History of placement of ear tubes History of tubal ligation S/P MVR (mitral valve replacement) S/P ORIF (open reduction internal fixation) fracture Left hip July 2019 [place] teeth removed Family History Mother , 60s Gastric cancer Father , age 65 Lung cancer Social History Smoking Status: Former smoker packs per day: 0.5; Cigarettes Per Day: 10; Second Hand Exposure: No; Do You Dip or Chew Tobacco: No; Hx Alcohol Use: No Hx Substance Use: No Preferred Language: Bengali Communication Ability: Effective Visual Impairment: Limited Hearing Ability: Normal [employer] Technician Required: No Beliefs That Will Affect Care: None marital status: marital status details: 1 son Current Living Situation: Alone Current Living Situation Comment: Patient lives alone in a second story apartment current occupational status: employed 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 Feels Safe at Home: Yes Diet Comment: Mediterranean caffeine: Yes during the past year weight has: increased > 10 lbs Assistive Devices: Cane and Walker Review of Systems Review of Systems: All systems reviewed & are unremarkable except as noted in HPI & below Physical Exam Constitutional: WD/WN, vitals as above Eyes: EOM intact bilaterally Neck: normal appearance Respiratory: normal respiratory effort, lungs clear to auscultation Cardiovascular: Rate/Rhythm: regular rate and regular rhythm Heart Sounds: no gallop and no murmur Gastrointestinal (Abdomen): normal bowel sounds, soft, nontender, no hepatosplenomegaly Inspection/Auscultation: abdomen not distended Musculoskeletal: Extremities: no cyanosis no lower extremity edema Skin: no rashes, warm and dry Neurologic: moves all extremities Psychiatric: A+Ox3, euthymic affect Results & Data Vital Signs (Past 12 Hours) Vital Signs Temp Pulse Resp BP Pulse Ox O2 Del Method 01/22/23 08:07 36.4 C L 70 17 94/61 L 91 Room Air 01/22/23 05:22 36.6 C 70 16 91/48 L 93 Room Air 01/22/23 02:56 36.6 C 70 16 94/58 L 93 Room Air 01/22/23 01:42 36.7 C 71 16 81/47 L 96 Room Air Diagnostic Findings Laboratory Results WBC 6.06 K/ul (4.8-10.8) 01/22/23 04:21 RBC 1.65 M/uL (4.20-5.40) L 01/22/23 04:21 Hgb 5.1 g/dl (12.0-16.0) L* 01/22/23 04:21 Hct 16.3 % (37.0-47.0) L* 01/22/23 04:21 MCV 98.8 fL (80.0-100.0) 01/22/23 04:21 MCH 30.9 pg (25.0-34.0) 01/22/23 04:21 MCHC 31.3 g/dL (32.0-36.0) L 01/22/23 04:21 RDW Std Deviation 73.2 fL (36.4-46.3) H 01/22/23 04:21 RDW Coeff of Dun[place] 20.2 % (11.5-14.5) H 01/22/23 04:21 Plt Count 180 K/uL (130-400) 01/22/23 04:21 MPV 9.9 fL (9.4-12.4) 01/22/23 04:21 PT 25.2 Seconds (9.0-12.0) H 01/22/23 04:20 INR 2.4 (0.9-1.1) H 01/22/23 04:20 APTT 51.8 Seconds (21.0-31.0) H* 01/21/23 16:36 PTT Ratio 1.8 01/21/23 16:36 Sodium 143 mmol/L (136-145) 01/22/23 04:21 Potassium 3.4 mmol/L (3.5-5.1) L 01/22/23 04:21 Chloride 110 mmol/L (98-107) H 01/22/23 04:21 Carbon Dioxide 27 mmol/L (21-32) 01/22/23 04:21 Anion Gap 6 (3-11) 01/22/23 04:21 BUN 58 mg/dl (6-23) H 01/22/23 04:21 Creatinine 1.12 mg/dl (0.6-1.2) 01/22/23 04:21 Est Cr Clr Drug Dosing 49.4 ml/min 01/22/23 04:21 Est GFR ( Amer) 61.4 ml/min 01/22/23 04:21 Est GFR (Non-Af Amer) 53.0 ml/min 01/22/23 04:21 BUN/Creatinine Ratio 51.8 (10-20) H 01/22/23 04:21 Glucose 103 mg/dl (70-99(Fasting)) H 01/22/23 04:21 Estimat Average Glucose 100 mg/dl 01/22/23 04:21 Hemoglobin A1c 5.1 % (4.5-5.6) 01/22/23 04:21 Calcium 7.8 mg/dl (8.6-10.3) L 01/22/23 04:21 Phosphorus 2.6 mg/dl (2.5-4.9) 01/21/23 16:36 Magnesium 2.0 mg/dl (1.7-2.4) 01/21/23 16:36 Iron 55 mcg/dl (35-150) 01/22/23 04:21 TIBC 252 mcg/dl (250-450) 01/22/23 04:21 Unsaturated IBC 197 mcg/dl (155-355) 01/22/23 04:21 Transferrin % Sat 22 % (15-50) 01/22/23 04:21 Ferritin 70.0 ng/ml (8-388) 01/22/23 04:21 Total Bilirubin 0.8 mg/dl (0.2-1.0) 01/21/23 16:36 AST 27 U/L (13-39) 01/21/23 16:36 ALT 6 U/L (7-52) L 01/21/23 16:36 Alkaline Phosphatase 88 U/L (34-104) 01/21/23 16:36 Troponin I High Sens 13.8 pg/ml (0-14) 01/21/23 16:36 Total Protein 6.4 gm/dl (6.0-8.3) 01/21/23 16:36 Albumin 3.2 gm/dl (3.4-5.0) L 01/21/23 16:36 Globulin 3.2 gm/dl (2.5-4.0) 01/21/23 16:36 Albumin/Globulin Ratio 1.0 (0.9-2) 01/21/23 16:36 Vitamin B12 > 1500 pg/ml (180-914) H 01/22/23 08:53 Folate 15.18 ng/ml (>5.38) 01/22/23 08:53 POC Stool Occult Blood Positive (Negative) A 01/21/23 19:00 SARS-CoV-2, RNA, NAAT NEGATIVE (NEGATIVE) 01/21/23 19:49 Blood Type O Positive 01/21/23 16:36 Antibody Screen POSITIVE A 01/21/23 16:36 Antibody Identification Anti-CW Anti-E Anti-Fya Anti-K Anti-S 01/21/23 16:36 Antibody Identification Anti-CW Anti-E Anti-Fya Anti-K Anti-S 01/21/23 16:36 Antibody Identification Anti-CW Anti-E Anti-Fya Anti-K Anti-S 01/21/23 16:36 Antibody Identification Anti-CW Anti-E Anti-Fya Anti-K Anti-S 01/21/23 16:36 Antibody Identification Anti-CW Anti-E Anti-Fya Anti-K Anti-S 01/21/23 16:36 Antibody ID Comment Cancelled 01/21/23 16:36 Antigen Identification Cancelled 01/21/23 16:36 Crossmatch See Detail 01/21/23 16:36 PG Care Time/CCT Total # of Minutes Spent Total Time Spent with Patient: Total time spent is greater than 50% in coordination of care (as documented) at patient's floor/unit and/or counseling patient: Coding Level of Care Code 00051 OFFICE CONSULT LVL Diagnoses GI bleed K92.2 H/O mechanical aortic valve replacement Z95.2 Elevated INR R79.1
--- NOTE | 2023-01-22 13:14 | Communication Note ---
Date of Service: January 22, 2023 Blood transfusion consent form has been completed and signed Attending attestation Pt seen and examined in concert with Dr. Cole. In agreement with the documented findings as noted in the resident documentation with any exceptions or additions as noted here.
[2023-01-22] MEDS ORDERED: OPTIRAY 320 125ml IV ONE (14:37)
--- NOTE | 2023-01-22 15:04 | CT Scan Report ---
CT angio abdomen pelvis w con CLINICAL HISTORY: 62 years-old Female with GI Bleed acute GI bleed COMPARISON STUDY: 05/21/2022 TECHNIQUE: Following the IV administration of 120 cc of Optiray, CT angiogram of the abdomen and pelv is was performed from the lung bases the proximal femora. Images are reviewed in the axial, sagittal, and coronal planes. 3-D MIPS images are created and assessed. All measurements were obtained accordi ng to NASCET criteria. IV contrast was administered without complication. A dose lowering technique was utilized adhering to the principles of ALARA. CT DOSE: 1068.01 mGy.cm FINDINGS: CTA: Marked cardiomegaly. Partially imaged prosthetic mitral valve. Median sternotomy. Trace pericardial e ffusion with stranding within the epicardial tissues. Mild atherosclerosis of the abdominal aorta. Pa tency of the celiac trunk, superior and inferior mesenteric arteries, and renal arteries. Duplicated left inferior pole renal artery is also patent. The iliac and imaged femoral arteries are patent. CT: Anasarca. Epicardial pacer leads are coiled within the left anterior chest wall. Fat filled subxiphoi d hernia, diastases of 2.6 cm contains trace amount of fluid. Small pleural effusions with mild depen dent bibasilar consolidation. Pulmonary edema. There is no pneumatosis or pneumoperitoneum identified . Unremarkable spleen, and pancreas. Hyperenhancement of the adrenal glands, likely phase of imaging. Cholelithiasis. Unchanged appearance of the liver. Unremarkable kidneys. No hydronephrosis. Urinary bladder wall thickening with perivesicular stranding . Air within the bladder lumen. Calcifications of the uterus. Borderline enlarged inguinal chain lymp h nodes measure up to 9 mm. Small volume of abdominal pelvic ascites. Colonic diverticulosis. Areas o f mild wall thickening of the colon noted, likely secondary to partial distention. Right hemicolon ai r-fluid levels. Normal appendix. No acute fracture. Left hip arthroplasty. Bilateral breast implants. IMPRESSION: 1. Cardiomegaly with poststernotomy changes and prosthetic mitral valve. Small pericardial effusion w ith stranding of the mediastinum and anterior chest wall are likely expected postoperative findings. 2. Small subxiphoid fat filled upper abdominal wall hernia. 3. Unremarkable CTA. 4. Fluid overload with pulmonary edema, pleural effusions, anasarca and small volume of abdominal pel castro ascites. 5. Urinary bladder wall thickening with air in the bladder lumen, possibly secondary to recent instru mentation. Correlate with urinalysis. 6. Colonic diverticulosis. 7. Additional findings as above. ACT 112: Negative or not required by law. The above report was generated using voice recognition software. It may contain grammatical, syntax o r spelling errors. Electronically signed by: Festus Blake M.D. 01/22/2023 3:02 PM
[2023-01-22] MEDS ORDERED: STAT IV STA (15:21)
[2023-01-22] MEDS ORDERED: OCTREOTIDE ACETATE 50 MCG in SYRINGE 9.5 ML IV STA (15:24)
[2023-01-22] MEDS ORDERED: OCTREOTIDE ACETATE 500 MCG in DEXTROSE 5% 100 ML IV SCH (15:30)
[2023-01-22] MEDS ORDERED: FUROSEMIDE INJ 20 MG/2 ML VIAL IV ONE (17:30)
[2023-01-22] MEDS ORDERED: PHYTONADIONE 2.5 MG in DEXTROSE 5% 50 ML IV ONE (18:00)
--- NOTE | 2023-01-22 18:10 | Discharge Summary ---
Date of Service January 22, 2023 Admission HPI Per Admitting Provider Dilma Hogan is a pleasant 62-year-old female with history of atrial fibrillation status post multiple cardioversions, pacer in place, anticoagulated on Coumadin, diabetes, heart failure with preserved EF, rheumatic cardiomyopathy presenting with multiple episodes of bright red blood per rectum. Patient was recently admitted to [facility] from 12/11/22 --> 01/20/23. She presented as an elective admission for valvular heart surgery - was being considered for transcatheter TV replacement. On 12/24/22 she had an aortic valve replacement with a mechanical valve as well as placement of a bioprosthetic tricuspid valve by redo median sternotomy performed by Dr. Frandy Cantu. Patient reports that the surgery went well. Per record review, it seems that she had transfusion of FFP x 1 unit, Platelets x 1 unit and 5 units of PRBCs during her hospitalization. She was initially anticoagulated with a heparin gtt then transitioned to Coumadin. She reports that her INR was difficult to control during her hospital stay. She also had a UTI which was treated with a course of antibiotics. She stated that she had a very poor appetite following her surgery and was not able to eat much at all. She did not have a bowel movement for 5 days following her surgery. She was given Dulcolax and Metamucil and finally had a BM and noted some bright red blood on the toilet paper. She had another BM prior to discharge from [facility] with no notable blood. She reports her last unit of PRBCs was administered on 01/18/23 evening This morning the patient reports no appetite. She had multiple large, bloody b owel movements at home x 7 which prompted her to come to the ER. She denies abdominal pain, rectal pain, nausea, vomiting. Denies chest pain, cough, SOB, dizziness or syncope. Patient has had 2 bloody bowel movements since being in the ER. She reports that the amount of blood as well as the urgency has decreased. Patient did have an UGIB in the past following a hip surgery in May 2022. She had an EGD performed which revealed 3 gastric ulcers. She was treated with PPI and the bleeding resolved. She did not have a colonoscopy at that time. She did have a screening colonoscopy at age 51 (appx 11 years ago) and denies presence of hemorrhoids, polyps or diverticuli at that time (although she does have diverticular disease listed on her problem list). In the ER patient is afebrile, blood pressure has been low to 86/48. She has been typed and crossed for PRBCs. Unfortunately, she has 4 antibodies - her blood is presently being sent to [place] by surfacing machine operator for additional testing and matching. ER Course: Protonix bolus and gtt NSS x 1L Vitamin K x 2.5mg IV Admission Exam Per Admitting Provider General: patient resting comfortably, NAD, non-toxic in appearance, AA&O x 4, anxious Skin: warm, dry, no rashes or lesions, midline sternotomy incision with no bleeding, drainage, erythema or dehiscence HEENT: NC/AT, PERRL, EOMI, anicteric sclera, conjunctiva without injection, external ear normal to inspection and nontender, nares patent, moist mucus membranes, dentition intact, no oropharyngeal lesions, neck supple, trachea midline, no LAD, no thyromegaly, no JVD Heart: +S1/S2, regular, 4/6 CON across precordium with mid-systolic click audible, no rubs/gallops, stable sternum Lungs: equal air entry bilaterally, no rales/rhonchi/wheezes Abd: +BS, soft, NT/ND, no masses/organomegaly/ascites Ext: warm, 2+ pulses in UE/LE bilaterally, no clubbing/cyanosis, 1+ pitting edema, PIV x [address] Neuro: nonfocal, patient AA&O x 4, speech intact, no facial droop, moving all extremities on command with equal strength 5/5 Principal Diagnosis Severe anemia secondary to acute GI bleed, supratherapeutic INR Discharge Exam Constitutional: tired-appearing, no acute distress CV: regular rhythm, systolic murmur appreciated, extremities well-perfused, no LE edema Resp: mild crackles at bases bilaterally, no increased WOB GI: soft, nondistended, nontender Skin: midline sternal scar appreciated Neuro: alert, oriented, no focal neurologic deficit appreciated Discharge Data Allergies Allergy/AdvReac Type Severity Reaction Status Date / Time adhesive Allergy Intermediate rash Verified 01/21/23 17:49 fluoxetine Allergy Intermediate Rash Verified 01/21/23 17:49 mushroom Allergy Intermediate EYES Verified 01/21/23 17:49 SWELLED hydrocodone Allergy Unknown ON MED LIST Verified 01/21/23 17:49 levofloxacin [From Levaquin] Allergy Unknown ON MED LIST Verified 01/21/23 17:49 azithromycin AdvReac Severe Tachycardia Verified 01/21/23 17:49 [From Zithromax Z-Anton] /A-FIB Estrogens AdvReac Severe CHF Verified 01/21/23 17:49 lorazepam AdvReac Severe mental Verified 01/21/23 17:49 status change prednisone AdvReac Severe LOW BP D/T Verified 01/21/23 17:49 FLUID SHIFT acetaminophen [From Tylenol] AdvReac Intermediate D/T LIVER Verified 01/21/23 17:49 ISSUES aspirin AdvReac Intermediate CONTRAINDICATED Verified 01/21/23 17:49 WITH COUMADIN PER PT. cephalexin AdvReac Intermediate Tachycardia Verified 01/21/23 17:49 codeine AdvReac Intermediate Shakiness Verified 01/21/23 17:49 Corticosteroids AdvReac Intermediate HYPOTENSION Verified 01/21/23 17:49 (Glucocorticoids) doxycycline AdvReac Intermediate LEGS SWELL Verified 01/21/23 17:49 fluocinonide AdvReac Intermediate Tachycardia Verified 01/21/23 17:49 NSAIDS (Non-Steroidal AdvReac Intermediate HYPOTENSION Verified 01/21/23 17:49 Anti-Inflamma zolpidem [From Ambien] AdvReac Intermediate MENTAL Verified 01/21/23 17:49 STATUS CHANGE Anti-Depressents Allergy Unknown SEE COMMENT Uncoded 01/21/23 17:49 Consultations 01/21/23 18:23 ED Decision to Admit Stat 01/21/23 22:10 Consult Gastroenterology Routine Consult Hematology Routine 01/22/23 17:52 Burn CD for patient Stat Procedures Performed Operation Date: 01/22/23 17:10 <No data on this case meets the specified criteria> Ordered Studies 01/22/23 14:10 CTA abdomen pelvis w con [CT angio abdomen pelvis w con] Stat Hospital Course (1) Severe anemia: Severe acute blood loss anemia secondary to GI bleed Hgb 5.1 on admission in the setting of supratherapeutic INR of 6.8 (below) 01/22: transfused 3u pRBC CTA without overt source of bleeding GI initially planned for colonoscopy, but then discussed with our anesthesia team who is not comfortable sedating patient without additional units of blood on hand Patient will be transferred to [facility] d/t inability for us to intervene given the above Transfer accepted by [facility], awaiting bed Transfer paperwork complete Continue octreotide gtt, continue protonix gtt Supratherapeutic INR INR on admission 6.8 in the setting of warfarin therapy for mechanical AV/TR valves Home warfarin on hold Patient was given vitamin K 2.5mg IV; INR improved to 2.4 GI chain sales consultant discussed this with CT surgery at [facility], they recommend additional 2.5mg IV - will order placed at 17:45 on 01/22 Trend INR Hypoxia, fluid overload 01/22 @ 17:00 - patient developed mild hypoxia (88%) in the setting of high fluid burden given blood transfusions Mild bibasilar crackles on exam Lasix 20mg IV (x1) ordered Further diuresis will likely be necessary given ongoing transfusions, but will approach this cautiously given borderline hypotension 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, anti-E, anti-Fya, anti-K, anti-S This significantly delays our obtaining units of blood and also reduces the supply able to be used in this patient We were able to get three units of the above from [place] but they do not have additional available Discussed this with transfer team at [facility], they are aware FEN: NPO, blood transfusion in progress Code status: full code DVT ppx: contraindicated at this time Consults: gastroenterology, hematology Dispo: PCU, transfer to [facility] pending bed availability (2) Supratherapeutic INR: (3) Mitral valve replaced: (4) Chronic anticoagulation: (5) Fluid overload: (6) GI bleed: (7) H/O mechanical aortic valve replacement: Total Time Total Time Spent Total Time Spent (In Minutes): see attending documentation Discharge Plan Discharge Items Patient Disposition: Transfer Acute Care Hospital Reason For Visit: GIB, SUPRATHERAPEUTIC INR Discharge Diagnosis: Severe anemia secondary to GI bleed, supratherapeutic INR Activity: Per Instructions section Non-emergency contact: Primary Care Provider, Surgeon and Sales Warehouse Driver Call non-emergency contact if: your symptoms worsen Follow-up/Referrals: Fabby Whitmore [Primary Care Provider] - Diet: Nothing by Mouth Addtl Attending Provider Instructions: Severe acute blood loss anemia secondary to GI bleed Hgb 5.1 on admission in the setting of supratherapeutic INR of 6.8 (below) 01/22: transfused 3u pRBC CTA without overt source of bleeding GI initially planned for colonoscopy, but then discussed with our anesthesia team who is not comfortable sedating patient without additional units of blood on hand Patient will be transferred to [facility] d/t inability for us to intervene given the above Transfer accepted by [facility], awaiting bed Transfer paperwork complete Continue octreotide gtt, continue protonix gtt Supratherapeutic INR INR on admission 6.8 in the setting of warfarin therapy for mechanical AV/TR valves Home warfarin on hold Patient was given vitamin K 2.5mg IV; INR improved to 2.4 GI chain sales consultant discussed this with CT surgery at [facility], they recommend additional 2.5mg IV - will order placed at 17:45 on 01/22 Trend INR Hypoxia, fluid overload 01/22 @ 17:00 - patient developed mild hypoxia (88%) in the setting of high fluid burden given blood transfusions Mild bibasilar crackles on exam Lasix 20mg IV (x1) ordered Further diuresis will likely be necessary given ongoing transfusions, but will approach this cautiously given borderline hypotension 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, anti-E, anti-Fya, anti-K, anti-S This significantly delays our obtaining units of blood and also reduces the supply able to be used in this patient We were able to get three units of the above from [place] but they do not have additional available Discussed this with transfer team at [facility], they are aware Pending Studies at Discharge: No Stand-Alone Forms: My [facility] Skilled Items Patient informed of condition?: Yes DNR: No Discharge Level of Care: Other Communicable Disease: No Discharge Prognosis: Stable Lines: Peripheral IV Urinary Catheter: No Medications and DC Order Prescriptions: Held warfarin [Jantoven] 1 mg tablet 2 mg PO 3XWK Hold Instructions: Resume on 01/25/23. Rx Instructions: DID INR 01/21/23-WAITING FOR INSTRUCTIONS ON DOSAGE. TAKE 2MG EVERY WEDNESDAY/WEDNESDAY/WEDNESDAY. warfarin [Jantoven] 1 mg tablet 4 mg PO 4XWK Hold Instructions: Resume on 01/25/23. Rx Instructions: DID INR 01/21/23-WAITING FOR INSTRUCTIONS ON DOSAGE. TAKE 4MG EVERY WEDNESDAY/WEDNESDAY/WEDNESDAY/WEDNESDAY. torsemide 100 mg tablet 100 mg PO BID Hold Instructions: Resume on 01/25/23. sennosides-docusate sodium [Senna-S] 8.6-50 mg Tablet 1 tab-cap PO BID Hold Instructions: Resume on 01/25/23. pantoprazole 20 mg tablet,delayed release (DR/EC) 20 mg PO DAILYBB Hold Instructions: Resume on 01/25/23. potassium chloride 20 mEq tablet,ER particles/crystals 40 meq PO BID Hold Instructions: Resume on 01/25/23. magnesium oxide 400 mg (241.3 mg magnesium) Tablet 400 mg PO BID Hold Instructions: Resume on 01/25/23. metoprolol succinate 25 mg tablet extended release 24 hr 25 mg PO QAM Hold Instructions: Resume on 01/25/23. ferrous sulfate 325 mg (65 mg iron) Tablet,Delayed Release (Dr/Ec) 325 mg PO DIRECTED PRN (Reason: NEEDED PER MED LIST) Hold Instructions: Resume on 01/25/23. hydroxyzine HCl 10 mg tablet 10 mg PO Q8H PRN (Reason: Anxiety) Hold Instructions: Resume on 01/25/23. oxycodone 5 mg tablet 5 mg PO Q6H PRN (Reason: Pain) Hold Instructions: Resume on 01/25/23. Rx Instructions: FOR PAIN UP TO 7 DAYS PER MED LIST. coenzyme Q10 [CoQ-10] 100 mg Capsule 100 mg PO DAILY Hold Instructions: Resume on 01/25/23. mirtazapine 7.5 mg tablet 22.5 mg PO HS Hold Instructions: Resume on 01/25/23. sevelamer carbonate [Renvela] 800 mg Tablet 800 mg PO TIDM Hold Instructions: Resume on 01/25/23. Rx Instructions: must administer with a meal/food Thera M Plus (ferrous fumarat) 9 mg iron-400 mcg Tablet 1 tab PO QAM Hold Instructions: Resume on 01/25/23. Discharge Orders: Discharge Order (Routine); Ordered 01/22/23 Ordered By: Дмитрий Cole Admission Data Admit Date/Time: 01/21/23 20:05 Attending Provider: Ashok Carpenter Admit Provider: Margaret Lane Primary Care Provider: Fabby Whitmore Other Providers: Baljinder Fish ; Yogi Baltazar ; Calista Don Supervising Physician Co-Signing Physician Notes Attending attestation Pt seen and examined in concert with Dr. Cole. In agreement with the documented findings as noted in the resident documentation with any exceptions or additions as noted here. Patient reports mild dizziness with laying down consistent with chronic positional dizziness previously present without any other symptoms beyond fatigue. 1-3 mack BM today per pt/nursing On examination, S1/S2 nl RRR 4/6 CON. CTAB. Abd NT/ND BS+ve Severe acute blood loss anemia 2/2 GIB - GI consult - 3U PRBC transfusing today. Octreotide initiated. Protonix GTT continued. Transfer per GI recommendation Supratherapeutic INR in the setting of recent valve replacement - per GI - d/w CT surgery encourages full reversal, additional Vit K ordered Hypoxia in the setting of multiple transfusion fluid overload - furosemide 20mg ordered, further doses based on response Transfusion antibodies - as noted above. Else see resident documentation as noted. Resident Activity Tracking Resident Involvement: Resident Care Provided Care Provided: Adult Hospital Medicine
[2023-01-22] MEDS ORDERED: guaiFENesin 600 MG TABCR PO SCH (21:00)
[2023-01-22] MEDS: MIRTAZAPINE TAB 15 MG TAB PO SCH (22:04)
[2023-01-22 23:11] LABS: Hematocrit (blood only) 28.8 % (37.0-47.0); Hemoglobin 9.4 g/dl (12.0-16.0)
== END 2023-01-23 00:44 | disposition short-term general hospital (02) | DRG 378 ==
LOC: ED 15:24 → SUATTDRO 20:05 → 4W 20:05

== ENCOUNTER 2024-02-25 23:33 | Inpatient (IN) ==
--- OUTSIDE RECORDS SUMMARY | 2024-02-25 23:40 | External Medical Summary | Summary of Care ---
Author Name Unknown Organization [facility] Address [address] [place] [address] Phone [phone] Care Team Providers Care Tool Maintenance Technician Name Role Phone Nena Richardson Primary Care Provider Reason for Visit * Reason Comments Dosage Adjustment Via Phone (anticoag Cl inic) Encounter Details Date Type Department Care Team (Late st Contact Info) Description 02/18/2024 6:45 AM EDT Anticoagulation Centralized Clinical [facility] Services, Lisa Lion [address] [place] [address] [place] [address] [place] [address] Atrial fibrillation, unspecified type (HCC)* Allergies Active Allergy Reactions Criticality Noted Date Comments Adhesive Tape Rash 03/10/2012 Azithromycin Tachycardia 04/10/2020 Cephalexin Tachycardia 04/10/2020 Fluocinolone Acetonide Tachycardia 03/10/2012 Codeine Psych complications 03/10/2012 Estrogens 07/21/2016 Other reaction(s): Other: See Comments Pt states intolerance with oral estrogen - afib/chf exacerbation Fluoxetine Rash 12/19/2003 Hydrocodone 05/21/2022 Other reaction(s): ON MED LIST Levofloxacin 04/10/2020 Lorazepam Psych complications 03/10/2012 Morphine Psych complications 04/10/2020 hallucinations Mushroom Extract Complex High 05/21/2022 Other reaction(s): EYES SWELLED Nsaids Other (Please comment) 04/10/2020 Gibbons shaped face Prednisone Other (Please comment) 03/10/2012 Patient states it caused it CHF and afib. Zolpidem Other (Please comment) 04/10/2020 Memory issues documented as of this encounter (statuses as of 02/18/2024) Medications Medication Sig Dispensed Refills Start Date End Date Status MULTIVITAMIN/IRON PO TABS Take 1 Tablet by mouth in the morning. Active Mirtazapine 15 MG Oral Tablet (Remeron) Take 1 Tablet by mouth at bedtime. 12/16/2021 Active Betamethasone Valerate 0.1 % External Ointment (Valisone) Apply topically to affected area as needed. 05/21/2020 Active metOLazone 2.5 MG Oral Tablet (Zaroxolyn)Indicatio ns:Chronic right-sided heart failure (HCC),S/P mitral valve replacement,H/O tricuspid valve repair,Longstanding persistent atrial fibrillation (HCC),Mitral valve stenosis, rheumatic,Rheumatic tricuspid valve stenosis Take 1 Tablet by mouth daily as needed (weight gain, edema). 90 Tablet 3 06/26/2022 Active Triamcinolone Acetonide 0.1 % External Cream (Aristocort) Apply topically to affected area 2 times a day. As directed. 30 g 1 09/03/2022 Active Spironolactone 25 MG Oral Tablet (Aldactone)Indicatio ns:Chronic right-sided heart failure (HCC) Take 1 Tablet by mouth in the morning and 1 Tablet before bedtime. 90 Tablet 3 09/03/2022 Active Omeprazole 20 MG Oral Capsule Delayed Release (PriLOSEC) Take 1 Capsule by mouth in the morning. 30 Capsule 01/26/2023 Active Warfarin Sodium 4 MG Oral Tablet Take as directed per Coumadin instructions on you discharge paperwork. 30 Tablet 01/26/2023 Active oxyCODONE HCl 5 MG Oral Tablet (Oxy IR) TAKE ONE TABLET BY MOUTH EVERY 6 HOURS NEEDED FOR PAIN FOR UP TO SEVEN DAYS 01/21/2023 Active Torsemide 100 MG Oral Tablet (Demadex)Indications :Heart failure, diastolic, with acute decompensation (HCC) Take 1.5 Tablets by mouth in the morning. 120 Tablet 5 02/22/2023 Active Additional Information Patient taking differently: 100 mgOralBID (0800, NOON), Reported on 03/04/2023 Potassium Chloride ER 10 MEQ Oral Tablet Extended Release Take 5 Tablets by mouth in the morning and 5 Tablets before bedtime. 370 Tablet 11 02/25/2023 Active documented as of this encounter (statuses as of 02/18/2024) Active Problems Problem Noted Date Diagnosed Date H/O mechanical aortic valve replacement 01/24/20 23 History of tricuspid valve r eplacement with bioprosthetic valve 01/23/2023 Acute on chronic diastolic c ongestive heart failure, NYHA class 4 09/18/2022 Diarrhea 08/13/2022 Acute on chronic anemia 07/17/2022 Acute blood loss anemia 07/17/2022 Antibody to blood group S antigen positive 07/17 Hypokalemia 07/06/2022 Abscess of left hip 07/04/2022 Iron deficiency anemia 05/26/2022 Alopecia 05/25/2022 Degenerative joint disease (DJD) of hip 05/08/20 Osteonecrosis of left hip 02/17/2022 Osteonecrosis of hip with co llapse of femoral head present on x-ray 02/17/2022 H/O mitral valve replacement with mechanical veena ve 01/02/2022 Presence of cardiac pacemaker 01/02/2022 Atrial fibrillation 05/24/2012 S/P ablation of atrial fibrillation 05/24/2012 Mitral valve stenosis, rheumatic 05/24/2012 S/P mitral valve replacement 05/24/2012 Tricuspid valve regurgitation, rheumatic 012 H/O tricuspid valve repair 05/24/2012 documented as of this encounter (statuses as of 02/18/2024) Resolved Problems Problem Noted Date Diagnosed Date Resolved Date Hypotension 07/17/2022 07/24/2022 Heart failure, diastolic, wi th acute decompensation 07/06/2022 01/25/2023 Heart failure, systolic, wit h acute decompensation 05/31/2022 06/07/2022 Cellulitis of left hip 05/29/202207/24 GI bleed 05/28/2022 01/25/2023 Enterococcus UTI 05/28/2022 06/07/2022 Subtherapeutic international normalized ratio (INR) 05/26/2022 06/07/2022 Subcutaneous hematoma 05/26/2022 10/30/ 2022 Thigh hematoma, left, initial encounter 05/25/2022 06/07/2022 Smoker 02/17/2022 06/07/2022 Right-sided epistaxis 06/08/20202019 Acute blood loss anemia 06/08/202005/11 Jag positive 06/08/2020 06/09/2020 documented as of this encounter (statuses as of 02/18/2024) Immunizations Name Administration Dates Next Due Pneumococcal Polysaccharide PPV23 (Pneumovax) Seasonal Influenza, PF, 6 M & above, IM , (FluLaval or Fluzone) 06/17/2021 documented as of this encounter Social History Tobacco Use Types Packs/Day Years Used Date Smoking Tobacco: Former Cigarettes 0.1 30 0 04/11/1992 - 04/11/2022 Smokeless Tobacco: Never Comments:10 cigarettes per d ay Alcohol Use Standard Drinks/Week Comments Yes 0 (1 standard drink = 0.6 oz pur e alcohol) occasional Sex and Gender Information Value Date Recorded Sex Assigned at Female 10/23/2022 9:30 AM EDT Gender Identity Female 10/23/2022 9:30 AM EDT Sexual Orientation Straight 10/23/2022 9: 30 AM EDT Job Start Date Occupation Industry Not on file Not on file Not on file documented as of this encounter Functional Status Functional Status Response Date of Assess ment Are you deaf or do you have serious difficulty h earing? No 01/23/2023 Are you blind or do you have serious difficulty seeing, even when wearing glasses? No 01/23/2023 Do you have serious difficul ty walking or climbing stairs? (5 years old or older) No 01/23/2023 Do you have difficulty dress ing or bathing? (5 years old or older) No 01/23/2023 Because of a physical, menta l, or emotional condition, do you have difficulty doing errands alone such as visiting a doctor s office or shopping? (15 years old or older) No 01/24/20 Cognitive Status Response Date of Assessm ent Because of a physical, menta l, or emotional condition, do you have serious difficulty concentrating, remembering, or making decisions? (5 years old or older) No 01/23/2023 documented as of this encounter Progress Notes * Love Kulkarni, [facility] - 02/18/2024 12:31 PM EDT Images from the original note were not included. [facility] [phone] Spoke to [facility] and confirmed pt remains admitted ([id number]). ACC will follow up. Love Kulkarni Rph, Pharm.D. Clinical Pharmacist Centralized Clinical Pharmacy Services ([facility]) [phone] 02/18/2024,12:32 PM documented in this encounter Plan of Treatment Health Maintenance Due Date Last Done Comments HIV Screening 1976 DTaP,Tdap,and Td Vaccines (1 - Tdap) 1980 Pap Smear 1982 Cervical Cancer Screening 1991 HPV/Co-Test 1991 Mammogram 2001 Colonoscopy 2006 Fecal Occult Blood Test 2006 Sigmoidoscopy 2006 Pneumococcal Vaccine: Pediatrics (0 to 5 Years) and At-Risk Patients (6 to 64 Years) (2 of 2 - PCV) 09/25/2010 09/25/2009 Zoster Vaccines (1 of 2) 2011 Depression Monitoring 11/14/2016 11/15/2015 COVID-19 Vaccine (4 - 2022- season) 2023 05/28/2021, 11/12/2020, 10/22/2020 Influenza Vaccine (FLU shot) (#1) 2024 04/28/2023, 05/25/2022, 06/17/2021, Additional history exists Cologuard 04/24/2025 04/24/2022, 04/21/2022 Colorectal Cancer Screening 04/24/2025 Lipid Panel 09/10/2026 09/10/2021 HPV (Gardasil) Vaccine Aged Out No lo nger eligible based on patient's age to complete this topic Hepatitis B Vaccine Aged Out No longe r eligible based on patient's age to complete this topic MENINGOCOCCAL (MENACTRA/MENVEO) Aged Out No longer eligible based on patient's age to complete this topic documented as of this encounter Medical Devices Implanted Type Area Protection Manager Device Identifier Shelf Expiration Date Model / Serial / Lot Acetabular Clusterhole Shell48 - [id number] Implanted:Qty: 1 on 05/08/2022 by Nicolás Han MD at [facility] Left: Hip JORDYN : ORTHOPAEDICS 08/23/2023 702-04-48D / / [id number] Hip Hd Nk Alumina Mod D 36/ 5 - [id number] Implanted:Qty: 1 on 05/08/2022 by Nicolás Han MD at [facility] Left: Hip JORDYN : ORTHOPAEDICS 01/29/2025 6570-0-036 / / [id number] Implant Stem Hip Colr Std 4 - [id number] Implanted:Qty: 1 on 05/08/2022 by Nicolás Han MD at [facility] Left: Hip JORDYN : ORTHOPAEDICS 03/06/2027 0708-5719 / / [id number] Trident Acetabular X3 0 36 D - [id number] Implanted:Qty: 1 on 05/08/2022 by Nicolás Han MD at [facility] Left: Hip JORDYN : ORTHOPAEDICS 723-00-36D / / [id number] Cath Cv Lumen Single 5fr - [id number] Implanted:Qty: 1 on 07/20/2022 at [facility] CR BARD : PERIPHERAL VASCULAR [id number] 07/08/2025 [id number] / / [id number] Cath Dual 6fr Line Pwr [id number] - [id number] Implanted:Qty: 1 on 07/20/2022 at [facility] CR BARD : PERIPHERAL VASCULAR [id number] 07/08/2025 [id number] / / [id number] Duraclip 11mm Repositionable - [id number] Implanted:Qty: 1 on 01/24/2023 by Surendra Kemp DO at [facility] Flareo [id number] / / Duraclip 11mm Repositionable - [id number] Implanted:Qty: 1 on 01/24/2023 by Surendra Kemp DO at [facility] ZeristaMED OLEG [id number] / / documented as of this encounter Visit Diagnoses Diagnosis Atrial fibrillation, unspecified type (HCC)- Primary documented in this encounter Advance Directives * Full Code (Latest Code Status on File) Date Activated Date Inactivated Comments 01/23/2023 2:36 AM 01/26/2023 2:13 PM This order r eflects the patients wishes and were consensually agreed upon. Question Answer Comments Discussion of Advance Directives occurred with: Patient * Full Code Date Activated Date Inactivated Comments 09/18/2022 4:02 PM 09/27/2022 6:55 PM This order r eflects the patients wishes and were consensually agreed upon. Question Answer Comments Discussion of Advance Directives occurred with: Patient Does the patient have a Living Will? No Does the patient have Health Care Power of Attor jada? No * Full Code Date Activated Date Inactivated Comments 08/13/2022 2:07 AM 08/28/2022 4:50 PM This order re flects the patients wishes and were consensually agreed upon. Question Answer Comments Discussion of Advance Directives occurred with: Patient * Full Code Date Activated Date Inactivated Comments 07/04/2022 8:25 PM 07/24/2022 5:52 PM This order reflects the patients wishes and were consensually agreed upon. Question Answer Comments Discussion of Advance Directives occurred with: Patient * Full Code Date Activated Date Inactivated Comments 05/25/2022 10:46 PM 06/07/2022 4:57 PM This orde r reflects the patients wishes and were consensually agreed upon. Question Answer Comments Discussion of Advance Direct hannah occurred with: Not Discussed due to patient's condition Does the patient have a Living Will? No Does the patient have Health Care Power of Trader Fixed Income? No Care Teams Tool Maintenance Technician Relationship Specialty Start Date End Date Nena Richardson DO [address] [place] [address] PCP - General Cardiovascular Medicine 09/15/23 documented as of this encounter
--- OUTSIDE RECORDS SUMMARY | 2024-02-25 23:40 | External Medical Summary | Summary of Care ---
Author Name Unknown Organization [facility] Address [address] [place] [address] Phone [phone] Care Team Providers Care Transit Mechanic Name Role Phone Nena Richardson Primary Care Provider Reason for Visit * Reason Comments Dosage Adjustment Via Phone (anticoag Cl inic) Encounter Details Date Type Department Care Team (Late st Contact Info) Description 02/22/2024 6:45 AM EDT Anticoagulation Centralized Clinical Pharmacy Services, Lisa Lion [address] [place] [address] [place] [address] [place] [address] Atrial fibrillation, unspecified type (HCC)* Allergies Active [...] as of this encounter (statuses as of 02/22/2024) Medications Medication Sig Dispensed Refills Start Date [...] as of this encounter (statuses as of 02/22/2024) Active Problems Problem Noted Date Diagnosed Date [...] as of this encounter (statuses as of 02/22/2024) Resolved Problems Problem Noted Date Diagnosed Date [...] as of this encounter (statuses as of 02/22/2024) Immunizations Name Administration Dates Next Due Pneumococcal [...] this encounter Progress Notes * Love Kulkarni, [facility] - 02/22/2024 2:04 PM EDT [facility] [phone] Spoke to [facility] and confirmed pt remains admitted (J73). ACC will follow up. Love uKlkarni Rph, Pharm.D. Clinical Pharmacist Centralized Clinical Pharmacy Services ([facility]) [phone] 02/22/2024,2:05 PM documented in this encounter Plan of Treatment Upcoming Encounters Date Type Department Care Team (Late st Contact Info) Description 02/25/2024 6:45 AM EDT Anticoagulation Centralized Clinical Pharmacy Services, Lisa Lion [address] [place] [address] [place] [address] [facility], [address] [place] [address] Health Maintenance Due Date Last Done Comments [...] 2011 Depression Monitoring 11/14/2016 11/15/2015 COVID-19 Vaccine ( season) 2023 05/28/2021, 11/12/2020, 10/22/2020 Influenza Vaccine [...] this encounter Medical Devices Implanted Type Area Director It Project Device Identifier Shelf Expiration Date Model / Serial / Lot Acetabular Clusterhole Shell48 - [id number] Implanted:Qty: 1 on 05/08/2022 by Nicolás Han MD at [facility] Left: Hip JORDYN : ORTHOPAEDICS 08/23/2023 702-04-48D / / [id number] Hip Hd Nk Alumina Mod D 36/ 5 - [id number] Implanted:Qty: 1 on 05/08/2022 by Nicolás Han MD at [facility] Left: Hip JORDYN : ORTHOPAEDICS 01/29/2025 6570-0-036 / / [id number] Implant Stem Hip Colr Std 4 - [id number] Implanted:Qty: 1 on 05/08/2022 by Nicolás Han MD at [facility] Left: Hip JORDYN : ORTHOPAEDICS 03/06/2027 8131-4484 / / [id number] Trident Acetabular X3 0 36 D - [id number] Implanted:Qty: 1 on 05/08/2022 by Nicolás Han MD at [facility] Left: Hip JORDYN : ORTHOPAEDICS 723-00-36D / / [id number] Cath Cv Lumen Single 5fr - [id number] Implanted:Qty: 1 on 07/20/2022 at [facility] CR BARD : PERIPHERAL VASCULAR [id number] 07/08/2025 [id number] / / [id number] Cath Dual 6fr Line Pwr [id number] - [id number] Implanted:Qty: 1 on 07/20/2022 at [facility] CR BARD : PERIPHERAL VASCULAR [id number] 07/08/2025 [id number] / / [id number] Duraclip 11mm Repositionable - [id number] Implanted:Qty: 1 on 01/24/2023 by Surendra Kemp DO at [facility] Rollad [id number] / / Duraclip 11mm Repositionable - [id number] Implanted:Qty: 1 on 01/24/2023 by Surendra Kemp DO at [facility] Rollad [id number] / / documented as of this encounter [...] the patient have Health Care Power of Horizontal Boring Mill Operator? No Care Teams Transit Mechanic Relationship Specialty Start Date End Date Nena Richardson DO [address] [place] [address] PCP - General Cardiovascular Medicine 09/15/23 documented as of this encounter
--- OUTSIDE RECORDS SUMMARY | 2024-02-25 23:40 | External Medical Summary | Summary of Care ---
Author Name Unknown Organization [facility] Address [address] [address] [place] [address] Phone [phone] Care Team Providers Care Ocean Biologist Name Role Phone Nena Richardson Primary Care Provider Reason for Visit * Reason Comments Dosage Adjustment Via Phone (anticoag Cl inic) Encounter Details Date Type Department Care Team (Late st Contact Info) Description 02/16/2024 6:45 AM EDT Anticoagulation Centralized Clinical Pharmacy Services, Lisa Lion [address] [place] [address] [place] [address] [place] [address] Atrial fibrillation, unspecified type (HCC)* Allergies Active [...] as of this encounter (statuses as of 02/16/2024) Medications Medication Sig Dispensed Refills Start Date [...] as of this encounter (statuses as of 02/16/2024) Active Problems Problem Noted Date Diagnosed Date [...] as of this encounter (statuses as of 02/16/2024) Resolved Problems Problem Noted Date Diagnosed Date [...] as of this encounter (statuses as of 02/16/2024) Immunizations Name Administration Dates Next Due Pneumococcal [...] this encounter Progress Notes * Love Kulkarni, [facility] - 02/16/2024 12:33 PM EDT [facility] [phone] Spoke to [facility] and confirmed pt remains admitted (J73). ACC will follow up. Love Kulkarni Rph, Pharm.D. Clinical Pharmacist Centralized Clinical Pharmacy Services ([facility]) [phone] 02/16/2024,12:33 PM documented in this encounter Plan of [...] this encounter Medical Devices Implanted Type Area Cover Machine Operator Device Identifier Shelf Expiration Date Model / Serial / Lot Acetabular Clusterhole Shell48 - [id number] Implanted:Qty: 1 on 05/08/2022 by Nicolás Han MD at [facility] Left: Hip JORDYN : ORTHOPAEDICS 08/23/2023 702-04-48D / / [id number] Hip Hd Nk Alumina Mod D 36/ 5 - [id number] Implanted:Qty: 1 on 05/08/2022 by Nicolás Han MD at [facility] Left: Hip JORDYN : ORTHOPAEDICS 01/29/2025 6570-0-036 / / [id number] Implant Stem Hip Colr Std 4 - [id number] Implanted:Qty: 1 on 05/08/2022 by Nicolás Han MD at [facility] Left: Hip JORDYN : ORTHOPAEDICS 03/06/2027 4623-9007 / / [id number] Trident Acetabular X3 0 36 D - [id number] Implanted:Qty: 1 on 05/08/2022 by Nicolás Han MD at [facility] Left: Hip JORDYN : ORTHOPAEDICS 723-00-36D / / [id number] Cath Cv Lumen Single 5fr - [id number] Implanted:Qty: 1 on 07/20/[address] [facility] CR BARD : PERIPHERAL VASCULAR [id number] 07/08/2025 [id number] / / [id number] Cath Dual 6fr Line Pwr [id number] - [id number] Implanted:Qty: 1 on 07/20/[address] [facility] CR BARD : PERIPHERAL VASCULAR [id number] 07/08/2025 [id number] / / [id number] Duraclip 11mm Repositionable - [id number] Implanted:Qty: 1 on 01/24/2023 by Surendra Kemp DO at [facility] CONMED OLEG [id number] / / Duraclip 11mm Repositionable - [id number] Implanted:Qty: 1 on 01/24/2023 by Surendra Kemp DO at [facility] CONMED OLEG [id number] / / documented as of this encounter [...] the patient have Health Care Power of Watch Parts Inspector? No Care Teams Ocean Biologist Relationship Specialty Start Date End Date Nena Richardson DO [address] [place] [address] PCP - General Cardiovascular Medicine 09/15/23 documented as of this encounter
--- OUTSIDE RECORDS SUMMARY | 2024-02-25 23:40 | External Medical Summary | Summary of Care ---
Author Name Unknown Organization [facility] Address [address] [facility] [place] [address] Phone [phone] Care Team Providers Care Pcat Instructor Name Role Phone Nena Richardson Primary Care Provider Reason for Visit * Reason Comments Dosage Adjustment Via Phone (anticoag Cl inic) Encounter Details Date Type Department Care Team (Late st Contact Info) Description 02/25/2024 6:45 AM EDT Anticoagulation Centralized Clinical Pharmacy Services, Lisa Lion [address] [place] [address] [place] [address] [place] [address] Atrial fibrillation, unspecified type (HCC)* Allergies Active [...] as of this encounter (statuses as of 02/25/2024) Medications Medication Sig Dispensed Refills Start Date [...] as of this encounter (statuses as of 02/25/2024) Active Problems Problem Noted Date Diagnosed Date [...] as of this encounter (statuses as of 02/25/2024) Resolved Problems Problem Noted Date Diagnosed Date [...] as of this encounter (statuses as of 02/25/2024) Immunizations Name Administration Dates Next Due Pneumococcal [...] this encounter Progress Notes * Love Kulkarni, [facility] - 02/25/2024 10:59 AM EDT Images from the original note were not included. [facility] [phone] Spoke to [facility] and confirmed pt remains admitted (J73). ACC will follow up. Love Kulkarni Rph, Pharm.D. Clinical Pharmacist Centralized Clinical Pharmacy Services ([facility]) [phone] 02/25/2024,10:59 AM documented in this encounter Plan of Treatment [...] this encounter Medical Devices Implanted Type Area Telecommunications Network Planner Device Identifier Shelf Expiration Date Model / Serial / Lot Acetabular Clusterhole Shell48 - [id number] Implanted:Qty: 1 on 05/08/2022 by Nicolás Han MD at [facility] Left: Hip JORDYN : ORTHOPAEDICS 08/23/2023 702-04-48D / / [id number] Hip Hd Nk Alumina Mod D 36/ 5 - [id number] Implanted:Qty: 1 on 05/08/2022 by Nicolás Han MD at [facility] Left: Hip JORDYN : ORTHOPAEDICS 01/29/2025 6570-0-036 / / [id number] Implant Stem Hip Colr Std 4 - [id number] Implanted:Qty: 1 on 05/08/2022 by Nicolás Han MD at [facility] Left: Hip JORDYN : ORTHOPAEDICS 03/06/2027 6716-3742 / / [id number] Trident Acetabular X3 0 36 D - [id number] Implanted:Qty: 1 on 05/08/2022 by Nicolás Han MD at [facility] Left: Hip JORDYN : ORTHOPAEDICS 723-00-36D / / [id number] Cath Cv Lumen Single 5fr - [id number] Implanted:Qty: 1 on 07/20/2022 at [facility] CR BARD : PERIPHERAL VASCULAR [id number] 07/08/2025 [id number] / / [id number] Cath Dual 6fr Line Pwr [id number] - [id number] Implanted:Qty: 1 on 07/20/2022 at [facility] CR BARD : PERIPHERAL VASCULAR [id number] 07/08/2025 [id number] / / [id number] Duraclip 11mm Repositionable - [id number] Implanted:Qty: 1 on 01/24/2023 by Surendra Kemp DO at OR [facility] O-RID [id number] / / Duraclip 11mm Repositionable - [id number] Implanted:Qty: 1 on 01/24/2023 by Surendra Kemp DO at [facility] CDNetworksMED OLEG [id number] / / documented as of this encounter [...] the patient have Health Care Power of Refinery Operator Vapor Recovery Unit? No Care Teams Pcat Instructor Relationship Specialty Start Date End Date Nena Richardson DO [address] [place] [address] PCP - General Cardiovascular Medicine 09/15/23 documented as of this encounter
--- OUTSIDE RECORDS SUMMARY | 2024-02-25 23:40 | External Medical Summary | Summary of Care ---
Author Name Unknown Organization [facility] Address [address] [place] [address] Phone [phone] Care Team Providers Care Gas Attendant Name Role Phone Nena Richardson Primary Care Provider Reason for Visit * Reason Comments Dosage Adjustment Via Phone (anticoag Cl inic) Encounter Details Date Type Department Care Team (Late st Contact Info) Description 02/14/2024 6:45 AM EDT Anticoagulation Centralized Clinical Pharmacy Services, Lisa Lion [address] [place] [address] [place] [address] [place] [address] Atrial fibrillation, unspecified type (HCC)* Allergies Active [...] as of this encounter (statuses as of 02/14/2024) Medications Medication Sig Dispensed Refills Start Date [...] as of this encounter (statuses as of 02/14/2024) Active Problems Problem Noted Date Diagnosed Date [...] as of this encounter (statuses as of 02/14/2024) Resolved Problems Problem Noted Date Diagnosed Date [...] as of this encounter (statuses as of 02/14/2024) Immunizations Name Administration Dates Next Due Pneumococcal [...] this encounter Progress Notes * Love Kulkarni, [facility] - 02/14/2024 9:44 AM EDT Images from the original note were not included. [facility] [phone] Spoke to [facility] and confirmed pt remains admitted (J73). ACC will follow up. Love Kulkarni Rph, Pharm.D. Clinical Pharmacist Centralized Clinical Pharmacy Services ([facility]) [phone] 02/14/2024,9:47 AM documented in this encounter Plan of [...] this encounter Medical Devices Implanted Type Area Broker In Charge Device Identifier Shelf Expiration Date Model / Serial / Lot Acetabular Clusterhole Shell48 - [id number] Implanted:Qty: 1 on 05/08/2022 by Nicolás Han MD at [facility] Left: Hip JORDYN : ORTHOPAEDICS 08/23/2023 702-04-48D / / [id number] Hip Hd Nk Alumina Mod D 36/ 5 - [id number] Implanted:Qty: 1 on 05/08/2022 by Nicolás Han MD at [facility] Left: Hip JORDYN : ORTHOPAEDICS 01/29/2025 6570-0-036 / / [id number] Implant Stem Hip Colr Std 4 - [id number] Implanted:Qty: 1 on 05/08/2022 by Nicolás Han MD at [facility] Left: Hip JORDYN : ORTHOPAEDICS 03/06/2027 3388-2566 / / [id number] Trident Acetabular X3 0 36 D - [id number] Implanted:Qty: 1 on 05/08/2022 by Nicolás Han MD at [facility] Left: Hip JORDYN : ORTHOPAEDICS 723-00-36D / / [id number] Cath Cv Lumen Single 5fr - [id number] Implanted:Qty: 1 on 07/20/2022 at [facility] CR BARD : PERIPHERAL VASCULAR [id number] 07/08/2025 [id number] / / [id number] Cath Dual 6fr Line Pwr [id number] - [id number] Implanted:Qty: 1 on 07/20/2022 at [facility] CR BARD : PERIPHERAL VASCULAR [id number] 07/08/2025 [id number] / / [id number] Duraclip 11mm Repositionable - [id number] Implanted:Qty: 1 on 01/24/2023 by Surendra Kemp DO at [place] [facility] [place] Amedex [id number] / / Duraclip 11mm Repositionable - [id number] Implanted:Qty: 1 on 01/24/2023 by Surendra Kemp DO at [place] [facility] [employer] OLEG [id number] / / documented as of this encounter [...] the patient have Health Care Power of Second Chef? No Care Teams Gas Attendant Relationship Specialty Start Date End Date Nena Richardson DO [address] [place] [address] PCP - General Cardiovascular Medicine 09/15/23 documented as of this encounter
--- OUTSIDE RECORDS SUMMARY | 2024-02-25 23:41 | External Medical Summary | Summary of Care ---
Author Name Unknown Organization [facility] Address [address] [facility] [address] Phone [phone] Care Team Providers Care Provider Relations Manager Name Role Phone Nena Richardson Primary Care Provider Reason for Visit * Reason Comments Dosage Adjustment Via Phone (anticoag Cl inic) Encounter Details Date Type Department Care Team (Latest Contact Info) Description 01/17/2024 6:45 AM EDT Anticoagulation Centralized Clinical Pharmacy Services, Lisa Lion [address] [place] [address] [place] [address] [place] [address] 60 [facility] [place] [address] Atrial fibrillation, unspecified type (HCC)* Allergies Active [...] as of this encounter (statuses as of 01/17/2024) Medications Medication Sig Dispensed Refills Start Date [...] as of this encounter (statuses as of 01/17/2024) Active Problems Problem Noted Date Diagnosed Date [...] as of this encounter (statuses as of 01/17/2024) Resolved Problems Problem Noted Date Diagnosed Date Resolved Date Hypotension 07/17/2022 07/24/2022 Heart failure, diastolic, wi th acute decompensation 07/06/2022 01/25/2023 Heart failure, systolic, wit h acute decompensation 05/31/2022 06/07/2022 Cellulitis of left hip 05/29/202207/24 GI bleed 05/28/2022 01/25/2023 Enterococcus UTI 05/28/2022 06/07/2022 Subtherapeutic international normalized ratio (INR) 05/26/2022 06/07/2022 Subcutaneous hematoma 05/26/20222021 Thigh hematoma, left, initial encounter 05/25/2022 06/07/2022 Smoker 02/17/2022 06/07/2022 Right-sided epistaxis 06/08/20202019 Acute blood loss anemia 06/08/202005/11 Jag positive 06/08/2020 06/09/2020 documented as of this encounter (statuses as of 01/17/2024) Immunizations Name Administration Dates Next Due Pneumococcal [...] this encounter Progress Notes * Love Kulkarni, [facility] - 01/17/2024 2:13 PM EDT Images from the original note were not included. [facility] [phone] Spoke to [facility] and confirmed pt remains admitted (J72 room 16). No plans for discharge at this time. ACC will follow up for d/c plans. Love Kulkarni Rph, Pharm.D. Clinical Pharmacist Centralized Clinical Pharmacy Services ([facility]) [phone] 01/17/2024,2:14 PM documented in this encounter Plan of [...] Depression Monitoring 11/14/2016 11/15/2015 COVID-19 Vaccine ( - season) 2023 05/28/2021, 11/12/2020, 10/22/2020 Cologuard 04/24/2025 04/24/2022, 04/21/2022 Colorectal Cancer Screening 04/24/2025 Lipid Panel 09/10/2026 09/10/2021 Influenza Vaccine (FLU shot) Completed , 05/25/2022, 06/17/2021, Additional history exists GARDASIL-HPV IMMUNIZATION SERIES Aged Out No longer eligible based on patient's age to complete this topic Hepatitis B Aged Out No longer eligi ble based on patient's age to complete this topic MENINGOCOCCAL (MENACTRA/MENVEO) Aged Out No longer eligible based on patient's age to complete this topic documented as of this encounter Medical Devices Implanted Type Area Plastic Dolls Mold Filler Device Identifier Shelf Expiration Date Model / Serial / Lot Acetabular Clusterhole Shell48 - [id number] Implanted:Qty: 1 on 05/08/2022 by Nicolás Han MD at [facility] Left: Hip JORDYN : ORTHOPAEDICS 08/23/2023 702-04-48D / / [id number] Hip Hd Nk Alumina Mod D 36/ 5 - [id number] Implanted:Qty: 1 on 05/08/2022 by Nicolás Han MD at [facility] Left: Hip JORDYN : ORTHOPAEDICS 01/29/2025 6570-0-036 / / [id number] Implant Stem Hip Colr Std 4 - [id number] Implanted:Qty: 1 on 05/08/2022 by Nicolás Han MD at [facility] Left: Hip JORDYN : ORTHOPAEDICS 03/06/2027 0558-4876 / / [id number] Trident Acetabular X3 0 36 D - [id number] Implanted:Qty: 1 on 05/08/2022 by Nicolás Han MD at [facility] Left: Hip JORDYN : ORTHOPAEDICS 723-00-36D / / [id number] Cath Cv Lumen Single 5fr - [id number] Implanted:Qty: 1 on 07/20/2022 at [facility] CR BARD : PERIPHERAL VASCULAR [id number] 07/08/2025 [id number] / / [id number] Cath Dual 6fr Line Pwr [id number] - [id number] Implanted:Qty: 1 on 07/20/2022 at [facility] CR BARD : PERIPHERAL VASCULAR [id number] 07/08/2025 [id number] / / [id number] Duraclip 11mm Repositionable - [id number] Implanted:Qty: 1 on 01/24/2023 by Surendra Kemp DO at [place] [facility] Vidtel [id number] / / Duraclip 11mm Repositionable - [id number] Implanted:Qty: 1 on 01/24/2023 by Surendra Kemp DO at [place] [facility] [employer]ExMED [employer] [id number] / / documented as of this encounter [...] the patient have Health Care Power of Park Guide? No Care Teams Provider Relations Manager Relationship Specialty Start Date End Date Nena Richardson DO [address] [place] [address] PCP - General Cardiovascular Medicine 09/15/23 documented as of this encounter
--- OUTSIDE RECORDS SUMMARY | 2024-02-25 23:41 | External Medical Summary | Summary of Care ---
Author Name Unknown Organization [facility] Address [address] [facility] [address] Phone [phone] Care Team Providers Care Cut Off Worker Name Role Phone Nena Richardson Primary Care Provider Reason for Visit * Reason Comments Dosage Adjustment Via Phone (anticoag Cl inic) Encounter Details Date Type Department Care Team (Latest Contact Info) Description 01/14/2024 6:45 AM EDT Anticoagulation Centralized Clinical Pharmacy Services, Lisa Lion [address] [place] [address] [place] [address] [place] [address] 60 [facility] [place] [address] Atrial fibrillation, unspecified type (HCC)* Allergies Active [...] as of this encounter (statuses as of 01/14/2024) Medications Medication Sig Dispensed Refills Start Date [...] as of this encounter (statuses as of 01/14/2024) Active Problems Problem Noted Date Diagnosed Date [...] as of this encounter (statuses as of 01/14/2024) Resolved Problems Problem Noted Date Diagnosed Date [...] as of this encounter (statuses as of 01/14/2024) Immunizations Name Administration Dates Next Due Pneumococcal [...] Progress Notes * Love Kulkarni, [facility] - 01/14/2024 11:31 AM EDT Images from the original note were not included. [facility] [phone] Spoke to [facility] and confirmed pt remains admitted (J72 room 16). No plans for discharge at this time. ACC will follow up for d/c plans. Love Kulkarni Rph, Pharm.D. Clinical Pharmacist Centralized Clinical Pharmacy Services ([facility]PS) [phone] 01/14/2024,11:33 AM documented in this encounter Plan of [...] 09/25/2009 Zoster Vaccines (1 of 2) 2011 Depression, Most Recent Score >= 10 (will fire each visit until score < 10) 11/16/2015 11/15/2015 COVID-19 Vaccine ( season) 2023 05/28/2021, 11/12/2020, 10/22/2020 Cologuard 04/24/2025 [...] this encounter Medical Devices Implanted Type Area Engineer [employer] Device Identifier Shelf Expiration Date Model / Serial / Lot Acetabular Clusterhole Shell48 - [id number] Implanted:Qty: 1 on 05/08/2022 by Nicolás Han MD at [facility] Left: Hip JORDYN : ORTHOPAEDICS 08/23/2023 702-04-48D / / [id number] Hip Hd Nk Alumina Mod D 36/ 5 - [id number] Implanted:Qty: 1 on 05/08/2022 by Nicolás Han MD at OR [facility] Left: Hip JORDYN : ORTHOPAEDICS 01/29/2025 6570-0-036 / / [id number] Implant Stem Hip Colr Std 4 - [id number] Implanted:Qty: 1 on 05/08/2022 by Nicolás Han MD at [facility] Left: Hip JORDYN : ORTHOPAEDICS 03/06/2027 3963-6874 / / [id number] Trident Acetabular X3 0 36 D - [id number] Implanted:Qty: 1 on 05/08/2022 by Nicolás Han MD at OR [facility] Left: Hip JORDYN : ORTHOPAEDICS 723-00-36D / / [id number] Cath Cv Lumen Single 5fr - [id number] Implanted:Qty: 1 on 07/20/2022 at [facility] CR BARD : PERIPHERAL VASCULAR [id number] 07/08/2025 9173119 / / [id number] Cath Dual 6fr Line Pwr [id number] - [id number] Implanted:Qty: 1 on 07/20/2022 at [facility] CR BARD : PERIPHERAL VASCULAR [id number] 07/08/2025 [id number] / / [id number] Duraclip 11mm Repositionable - [id number] Implanted:Qty: 1 on 01/24/2023 by Surendra Kemp DO [place] [facility] [employer] OLEG [id number] / / Duraclip 11mm Repositionable - [id number] Implanted:Qty: 1 on 01/24/2023 by Surendra Kemp DO [place] [facility] [employer] [id number] / / documented as of this encounter [...] the patient have Health Care Power of Aquatic Biologist? No Care Teams Cut Off Worker Relationship Specialty Start Date End Date Nena Richardson DO [address] [place] [address] PCP - General Cardiovascular Medicine 09/15/23 documented as of this encounter
--- OUTSIDE RECORDS SUMMARY | 2024-02-25 23:41 | External Medical Summary | Summary of Care ---
Author Name Unknown Organization [facility] Address [address] [facility] [place] [address] Phone [phone] Care Team Providers Care Child Psychometrist Name Role Phone Nena Richardson Primary Care Provider Reason for Visit * Reason Comments Dosage Adjustment Via Phone (anticoag Cl inic) Encounter Details Date Type Department Care Team (Late st Contact Info) Description 02/09/2024 6:45 AM EDT Anticoagulation Centralized Clinical Pharmacy Services, Lisa Lion [address] [place] [address] [place] [address] [place] [address] Atrial fibrillation, unspecified type (HCC)* Allergies Active [...] as of this encounter (statuses as of 02/09/2024) Medications Medication Sig Dispensed Refills Start Date [...] as of this encounter (statuses as of 02/09/2024) Active Problems Problem Noted Date Diagnosed Date [...] as of this encounter (statuses as of 02/09/2024) Resolved Problems Problem Noted Date Diagnosed Date [...] as of this encounter (statuses as of 02/09/2024) Immunizations Name Administration Dates Next Due Pneumococcal [...] Progress Notes * Love Kulkarni, [facility] - 02/09/2024 2:42 PM EDT [facility] [phone] [facility] and confirmed pt remains admitted (J73). ACC will follow up. Love Kulkarni Rph, Pharm.D. Clinical Pharmacist Centralized Clinical Pharmacy Services ([facility]) [phone] 02/09/2024,2:42 PM documented in this encounter Plan of [...] this encounter Medical Devices Implanted Type Area Barrel Finisher Device Identifier Shelf Expiration Date Model / Serial / Lot Acetabular Clusterhole Shell48 - [id number] Implanted:Qty: 1 on 05/08/2022 by Nicolás Han MD at [facility] Left: Hip JORDYN : ORTHOPAEDICS 08/23/2023 702-04-48D / / [id number] Hip Hd Nk Alumina Mod D 36/ 5 - [id number] Implanted:Qty: 1 on 05/08/2022 by Nicolás Han MD at [facility] Left: Hip JORDYN : ORTHOPAEDICS 01/29/2025 6570-0-036 / / [id number] Implant Stem Hip Colr Std 4 - [id number] Implanted:Qty: 1 on 05/08/2022 by Nicolás Han MD at [facility] Left: Hip JORDYN : ORTHOPAEDICS 03/06/2027 1955-6557 / / [id number] Trident Acetabular X3 0 36 D - [id number] Implanted:Qty: 1 on 05/08/2022 by Nicolás Han MD at [facility] Left: Hip JORDYN : ORTHOPAEDICS 723-00-36D / / [id number] Cath Cv Lumen Single 5fr - [id number] Implanted:Qty: 1 on 07/20/2022 at [facility] CR BARD : PERIPHERAL VASCULAR [id number] 07/08/2025 [id number] / / [id number] Cath Dual 6fr Line Pwr [id number] - [id number] Implanted:Qty: 1 on 07/20/2022 at [facility] CR BARD : PERIPHERAL VASCULAR [id number] 07/08/2025 [id number] / / [id number] Duraclip 11mm Repositionable - [id number] Implanted:Qty: 1 on 01/24/2023 by Surendra Kemp DO at [place] [facility] CONMED OLEG [id number] / / Duraclip 11mm Repositionable - [id number] Implanted:Qty: 1 on 01/24/2023 by Surendra Kemp DO at [place] [facility] CONMED OLEG [id number] / / documented as of this encounter [...] the patient have Health Care Power of Door Assembler? No Care Teams Child Psychometrist Relationship Specialty Start Date End Date Nena Richardson DO [address] [place] [address] PCP - General Cardiovascular Medicine 09/15/23 documented as of this encounter
--- OUTSIDE RECORDS SUMMARY | 2024-02-25 23:41 | External Medical Summary | Summary of Care ---
Author Name Unknown Organization [facility] Address [address] [facility] [address] Phone [phone] Care Team Providers Care Brick Veneer Maker Name Role Phone Nena Richardson Primary Care Provider Reason for Visit * Reason Comments Dosage Adjustment Via Phone (anticoag Cl inic) Encounter Details Date Type Department Care Team (Latest Contact Info) Description 01/26/2024 6:45 AM EDT Anticoagulation Centralized Clinical Pharmacy Services, Lisa Lion [address] [place] [address] [place] [address] [place] [address] 60 [facility] [place] [address] Atrial fibrillation, unspecified type (HCC)* Allergies Active [...] as of this encounter (statuses as of 01/26/2024) Medications Medication Sig Dispensed Refills Start Date [...] as of this encounter (statuses as of 01/26/2024) Active Problems Problem Noted Date Diagnosed Date H/O mechanical aortic valve replacement 01/24/20 History of tricuspid valve r eplacement with [...] as of this encounter (statuses as of 01/26/2024) Resolved Problems Problem Noted Date Diagnosed Date [...] as of this encounter (statuses as of 01/26/2024) Immunizations Name Administration Dates Next Due Pneumococcal [...] this encounter Progress Notes * Love Kulkarni, [facility] - 01/26/2024 10:11 AM EDT Images from the original note were not included. [facility] [phone] Spoke to [facility] and confirmed pt remains admitted (J73). CM will call back if any d/c plans. ACC will follow up. Love Kulkarni Rph, Pharm.D. Clinical Pharmacist Centralized Clinical Pharmacy Services ([facility]) [phone] 01/26/2024,10:11 AM documented in this encounter Plan of [...] 2011 Depression Monitoring 11/14/2016 11/15/2015 COVID-19 Vaccine (2 - 2022- season) 2023 05/28/2021, 11/12/2020, 10/22/2020 Cologuard 04/24/2025 [...] this encounter Medical Devices Implanted Type Area Welt Slasher Device Identifier Shelf Expiration Date Model / Serial / Lot Acetabular Clusterhole Shell48 - [id number] Implanted:Qty: 1 on 05/08/2022 by Nicolás Han MD at [facility] Left: Hip JORDYN : ORTHOPAEDICS 08/23/2023 702-04-48D / / [id number] Hip Hd Nk Alumina Mod D 36/ 5 - [id number] Implanted:Qty: 1 on 05/08/2022 by Nicolás Han MD at [facility] Left: Hip JORDYN : ORTHOPAEDICS 01/29/2025 6570-0-036 / / [id number] Implant Stem Hip Colr Std 4 - [id number] Implanted:Qty: 1 on 05/08/2022 by Nicolás Han MD at [facility] Left: Hip JORDYN : ORTHOPAEDICS 03/06/2027 1383-0571 / / [id number] Trident Acetabular X3 0 36 D - [id number] Implanted:Qty: 1 on 05/08/2022 by Nicolás Han MD at [facility] Left: Hip JORDYN : ORTHOPAEDICS 723-00-36D / / [id number] Cath Cv Lumen Single 5fr - [id number] Implanted:Qty: 1 on 07/20/2022 at [facility] CR BARD : PERIPHERAL VASCULAR [id number] 07/08/2025 5463063 / / [id number] Cath Dual 6fr Line Pwr [id number] - [id number] Implanted:Qty: 1 on 07/20/2022 at [facility] CR BARD : PERIPHERAL VASCULAR [id number] 07/08/2025 [id number] / / [id number] Duraclip 11mm Repositionable - [id number] Implanted:Qty: 1 on 01/24/2023 by Surendra Kemp DO at [place] [facility] Superprotonic [id number] / / Duraclip 11mm Repositionable - [id number] Implanted:Qty: 1 on 01/24/2023 by Surendra Kemp DO at [place] [facility] Superprotonic [id number] / / documented as of this encounter [...] the patient have Health Care Power of Postal Clerk? No Care Teams Brick Veneer Maker Relationship Specialty Start Date End Date Nena Richardson DO [address] [place] [address] PCP - General Cardiovascular Medicine 09/15/23 documented as of this encounter
--- OUTSIDE RECORDS SUMMARY | 2024-02-25 23:41 | External Medical Summary | Summary of Care ---
Author Name Unknown Organization [facility] Address [address] [facility] [address] Phone [phone] Care Team Providers Care Sealing Machine Operator Name Role Phone Nena Richardson Primary Care Provider Reason for Visit * Reason Comments Dosage Adjustment Via Phone (anticoag Cl inic) Encounter Details Date Type Department Care Team (Latest Contact Info) Description 01/24/2024 6:45 AM EDT Anticoagulation Centralized Clinical Pharmacy Services, Lisa Lion [address] [place] [address] [place] [address] [place] [address] 60 [facility] [place] [address] Atrial fibrillation, unspecified type (HCC)* Allergies Active [...] as of this encounter (statuses as of 01/24/2024) Medications Medication Sig Dispensed Refills Start Date [...] as of this encounter (statuses as of 01/24/2024) Active Problems Problem Noted Date Diagnosed Date [...] as of this encounter (statuses as of 01/24/2024) Resolved Problems Problem Noted Date Diagnosed Date [...] as of this encounter (statuses as of 01/24/2024) Immunizations Name Administration Dates Next Due Pneumococcal [...] Progress Notes * Love Kulkarni, [facility] - 01/24/2024 9:43 AM EDT [facility] [phone] Spoke to [facility] and confirmed pt remains admitted (J73). CM will call back if any d/c plans. ACC will follow up. Love Kulkarni Rph, Pharm.D. Clinical Pharmacist Centralized Clinical Pharmacy Services ([facility]) [phone] 01/24/2024,9:47 AM documented in this encounter Plan of Treatment Upcoming Encounters Date Type Department Care Team (Late st Contact Info) Description 01/26/2024 6:45 AM EDT Anticoagulation Centralized Clinical Pharmacy Services, Lisa Lion [address] [place] [address] [address] [facility], [address] [place] [address] Health Maintenance Due Date Last Done Comments [...] this encounter Medical Devices Implanted Type Area Satellite Technician Device Identifier Shelf Expiration Date Model / Serial / Lot Acetabular Clusterhole Shell48 - [id number] Implanted:Qty: 1 on 05/08/2022 by Nicolás Han MD at OR [facility] Left: Hip JORDYN : ORTHOPAEDICS 08/23/2023 702-04-48D / / [id number] Hip Hd Nk Alumina Mod D 36/ 5 - [id number] Implanted:Qty: 1 on 05/08/2022 by Nicolás Han MD at OR [facility] Left: Hip JORDYN : ORTHOPAEDICS 01/29/2025 6570-0-036 / / [id number] Implant Stem Hip Colr Std 4 - [id number] Implanted:Qty: 1 on 05/08/2022 by Nicolás Han MD at OR [facility] Left: Hip JORDYN : ORTHOPAEDICS 03/06/2027 1183-1138 / / [id number] Trident Acetabular X3 0 36 D - [id number] Implanted:Qty: 1 on 05/08/2022 by Nicolás Han MD at [facility] Left: Hip JORDYN : ORTHOPAEDICS 723-00-36D / / [id number] Cath Cv Lumen Single 5fr - [id number] Implanted:Qty: 1 on 07/20/2022 at [facility] CR BARD : PERIPHERAL VASCULAR [id number] 07/08/2025 9694504 / / [id number] Cath Dual 6fr Line Pwr [id number] - [id number] Implanted:Qty: 1 on 07/20/2022 at [facility] CR BARD : PERIPHERAL VASCULAR [id number] 07/08/2025 0783651 / / [id number] Duraclip 11mm Repositionable - [id number] Implanted:Qty: 1 on 01/24/2023 by Surendra Kemp DO at [place] [facility] NovoPed[employer] [id number] / / Duraclip 11mm Repositionable - [id number] Implanted:Qty: 1 on 01/24/2023 by Surendra Kemp DO at [place] [facility] Nov[employer]Pedics [id number] / / documented as of this encounter [...] the patient have Health Care Power of Roof Tile Layer? No Care Teams Sealing Machine Operator Relationship Specialty Start Date End Date Nena Richardson DO [address] [place] [address] PCP - General Cardiovascular Medicine 09/15/23 documented as of this encounter
--- OUTSIDE RECORDS SUMMARY | 2024-02-25 23:41 | External Medical Summary | Summary of Care ---
Author Name Unknown Organization [facility] [address] [facility] [address] Phone [phone] Care Team Providers Care Intelligence Support Officer Name Role Phone Nena Richardson Primary Care Provider Reason for Visit * Reason Comments Dosage Adjustment Via Phone (anticoag Cl inic) Encounter Details Date Type Department Care Team (Latest Contact Info) Description 01/19/2024 6:45 AM EDT Anticoagulation [facility] Services, Lisa Lion [address] [place] [address] [place] [address] [place] [address] 60 [facility] [place] [address] Atrial fibrillation, unspecified type (HCC)* Allergies Active [...] as of this encounter (statuses as of 01/19/2024) Medications Medication Sig Dispensed Refills Start Date [...] as of this encounter (statuses as of 01/19/2024) Active Problems Problem Noted Date Diagnosed Date [...] as of this encounter (statuses as of 01/19/2024) Resolved Problems Problem Noted Date Diagnosed Date [...] as of this encounter (statuses as of 01/19/2024) Immunizations Name Administration Dates Next Due Pneumococcal [...] [facility] - 01/19/2024 11:41 AM EDT [facility] [phone] Spoke to [facility] and confirmed pt remains admitted (J73). No plans for discharge at this time. ACC will follow up for d/c plans. Love Kulkarni Rph, Pharm.D. Clinical Pharmacist Centralized Clinical Pharmacy Services ([facility]) [phone] 01/19/2024,11:42 AM documented in this encounter Plan of Treatment Upcoming Encounters Date Type Department Care Team (Late st Contact Info) Description 01/21/2024 6:45 AM EDT Anticoagulation Centralized Clinical Pharmacy Services, Lisa Lion [address] [place] [address] [place] [address] [facility], [address] [place] [address] Health Maintenance Due Date Last Done Comments [...] this encounter Medical Devices Implanted Type Area Asian Art Curator Device Identifier Shelf Expiration Date Model / Serial / Lot Acetabular Clusterhole Shell48 - [id number] Implanted:Qty: 1 on 05/08/2022 by Nicolás Han MD at OR [facility] Left: Hip JORDYN : ORTHOPAEDICS 08/23/2023 702-04-48D / / [id number] Hip Hd Nk Alumina Mod D 36/ 5 - [id number] Implanted:Qty: 1 on 05/08/2022 by Nicolás Han MD at [facility] Left: Hip JORDYN : ORTHOPAEDICS 01/29/2025 6570-0-036 / / [id number] Implant Stem Hip Colr Std 4 - [id number] Implanted:Qty: 1 on 05/08/2022 by Nicolás Han MD at OR [facility] Left: Hip JORDYN : ORTHOPAEDICS 03/06/2027 1525-0801 / / [id number] Trident Acetabular X3 0 36 D - [id number] Implanted:Qty: 1 on 05/08/2022 by Nicolás Han MD at [facility] Left: Hip JORDYN : ORTHOPAEDICS 723-00-36D / / [id number] Cath Cv Lumen Single 5fr - [id number] Implanted:Qty: 1 on 07/20/2022 at [facility] CR BARD : PERIPHERAL VASCULAR [id number] 07/08/2025 [id number] / / [id number] Cath Dual 6fr Line Pwr [id number] - [id number] Implanted:Qty: 1 on 07/20/2022 at [facility] CR BARD : PERIPHERAL VASCULAR [id number] 07/08/2025 [id number] / / [id number] Duraclip 11mm Repositionable - [id number] Implanted:Qty: 1 on 01/24/2023 by Surendra Kemp DO [place] [facility] [employer] [address] [employer] [id number] / / Duraclip 11mm Repositionable - [id number] Implanted:Qty: 1 on 01/24/2023 by Surendra Kemp DO [place] [facility] OY LX Therapies [id number] / / documented as of this encounter [...] the patient have Health Care Power of Technology Applications Consultant? No Care Teams Intelligence Support Officer Relationship Specialty Start Date End Date Nena Richardson DO [address] [place] [address] PCP - General Cardiovascular Medicine 09/15/23 documented as of this encounter
--- OUTSIDE RECORDS SUMMARY | 2024-02-25 23:41 | External Medical Summary | Summary of Care ---
Author Name Unknown Organization [facility] Address [address] [facility] [facility] [facility] [address] Phone [phone] Care Team Providers Care Sales Floor Manager Name Role Phone Nena Richardson Primary Care Provider Reason for Visit * Reason Comments Dosage Adjustment Via Phone (anticoag Cl inic) Encounter Details Date Type Department Care Team (Late st Contact Info) Description 02/11/2024 6:45 AM EDT Anticoagulation Centralized Clinical Pharmacy Services, Lisa Lion [address] [place] [address] [place] [address] [place] [address] Atrial fibrillation, unspecified type (HCC)* Allergies Active [...] as of this encounter (statuses as of 02/11/2024) Medications Medication Sig Dispensed Refills Start Date [...] as of this encounter (statuses as of 02/11/2024) Active Problems Problem Noted Date Diagnosed Date [...] as of this encounter (statuses as of 02/11/2024) Resolved Problems Problem Noted Date Diagnosed Date [...] as of this encounter (statuses as of 02/11/2024) Immunizations Name Administration Dates Next Due Pneumococcal [...] this encounter Progress Notes * Love Kulkarni, [facility] - 02/11/2024 11:39 AM EDT Images from the original note were not included. [facility] [phone] Spoke to [facility] and confirmed pt remains admitted (J73). ACC will follow up. Love Kulkarni Rph, Pharm.D. Clinical Pharmacist Centralized Clinical Pharmacy Services ([facility]) [phone] 02/11/2024,11:40 AM documented in this encounter Plan of [...] this encounter Medical Devices Implanted Type Area Business Improvement Manager Device Identifier Shelf Expiration Date Model / Serial / Lot Acetabular Clusterhole Shell48 - [id number] Implanted:Qty: 1 on 05/08/2022 by Nicolás Han MD at [facility] Left: Hip JORDYN : ORTHOPAEDICS 08/23/2023 702-04-48D / / [id number] Hip Hd Nk Alumina Mod D 36/ 5 - [id number] Implanted:Qty: 1 on 05/08/2022 by Nicolás Han MD at [facility] Left: Hip JORDYN : ORTHOPAEDICS 01/29/2025 6570-0-036 / / [id number] Implant Stem Hip Colr Std 4 - [id number] Implanted:Qty: 1 on 05/08/2022 by Nicolás Han MD at [facility] Left: Hip JORDYN : ORTHOPAEDICS 03/06/2027 4441-9980 / / [id number] Trident Acetabular X3 0 36 D - [id number] Implanted:Qty: 1 on 05/08/2022 by Nicolás Han MD at [facility] Left: Hip JORDYN : ORTHOPAEDICS 723-00-36D / / [id number] Cath Cv Lumen Single 5fr - [id number] Implanted:Qty: 1 on 07/20/[address] [facility] CR BARD : PERIPHERAL VASCULAR [id number] 07/08/2025 9232139 / / [id number] Cath Dual 6fr Line Pwr [id number] - [id number] Implanted:Qty: 1 on 07/20/[address] [facility] CR BARD : PERIPHERAL VASCULAR [id number] 07/08/2025 0917475 / / [id number] Duraclip 11mm Repositionable - [id number] Implanted:Qty: 1 on 01/24/2023 by Surendra Kemp DO at OR [facility] Axial [id number] / / Duraclip 11mm Repositionable - [id number] Implanted:Qty: 1 on 01/24/2023 by Surendra Kemp DO at OR [facility] miDriveMED OLEG [id number] / / documented as of this encounter [...] the patient have Health Care Power of Reinforced Ironworker? No Care Teams Sales Floor Manager Relationship Specialty Start Date End Date Nena Richardson DO [address] [place] [address] PCP - General Cardiovascular Medicine 09/15/23 documented as of this encounter
--- OUTSIDE RECORDS SUMMARY | 2024-02-25 23:41 | External Medical Summary | Summary of Care ---
Author Name Unknown Organization [facility] Address [address] [facility] [address] Phone [phone] Care Team Providers Care Supervisor Sawing And Assembly Name Role Phone Nena Richardson Primary Care Provider Reason for Visit * Reason Comments Dosage Adjustment Via Phone (anticoag Cl inic) Encounter Details Date Type Department Care Team (Latest Contact Info) Description 01/31/2024 6:45 AM EDT Anticoagulation Centralized Clinical Pharmacy Services, Lisa Lion [address] [place] [address] [place] [address] [facility] 58 60 [facility] [place] [address] Longstanding persistent atrial fibrillation (HCC)* Allergies Active Allergy Reactions Criticality Noted [...] as of this encounter (statuses as of 01/31/2024) Medications Medication Sig Dispensed Refills Start Date [...] as of this encounter (statuses as of 01/31/2024) Active Problems Problem Noted Date Diagnosed Date [...] as of this encounter (statuses as of 01/31/2024) Resolved Problems Problem Noted Date Diagnosed Date [...] as of this encounter (statuses as of 01/31/2024) Immunizations Name Administration Dates Next Due Pneumococcal [...] as of this encounter Progress Notes * Claudia Pereyra, [facility] - 01/31/2024 3:26 PM EDT [facility] [phone] Spoke to [facility] and confirmed pt remains admitted (J73). ACC will follow up. Thank You Claudia Pereyra PharmD Clinical Pharmacist Centralized Clinical Pharmacy Services ([facility]PS) [phone] / [phone] 01/31/2024, 3:28 PM documented in this encounter Plan of Treatment Upcoming Encounters Date Type Department Care Team (Late st Contact Info) Description 02/02/2024 6:45 AM EDT Anticoagulation Centralized Clinical Pharmacy Services, Lisa Lion [address] [place] [address] [place] [address] [facility] 58 60 [facility] [place] [address] Health Maintenance Due Date Last Done Comments [...] this encounter Medical Devices Implanted Type Area Machine Packager Device Identifier Shelf Expiration Date Model / Serial / Lot Acetabular Clusterhole Shell48 - [id number] Implanted:Qty: 1 on 05/08/2022 by Nicolás Han MD at OR [facility] Left: Hip JORDYN : ORTHOPAEDICS 08/23/2023 702-04-48D / / [id number] Hip Hd Nk Alumina Mod D 36/ 5 - [id number] Implanted:Qty: 1 on 05/08/2022 by Nicolás Han MD at [facility] Left: Hip JORDYN : ORTHOPAEDICS 01/29/2025 6570-0-036 / / [id number] Implant Stem Hip Colr Std 4 - [id number] Implanted:Qty: 1 on 05/08/2022 by Nicolás Han MD at OR [facility] Left: Hip JORDYN : ORTHOPAEDICS 03/06/2027 6548-4276 / / [id number] Trident Acetabular X3 0 36 D - [id number] Implanted:Qty: 1 on 05/08/2022 by Nicolás Han MD at OR [facility] Left: Hip JORDYN : ORTHOPAEDICS 723-00-36D / / [id number] Cath Cv Lumen Single 5fr - [id number] Implanted:Qty: 1 on 07/20/2022 at [facility] CR BARD : PERIPHERAL VASCULAR [id number] 07/08/2025 4850371 / / [id number] Cath Dual 6fr Line Pwr [id number] - [id number] Implanted:Qty: 1 on 07/20/2022 at [facility] CR BARD : PERIPHERAL VASCULAR [id number] 07/08/2025 3618775 / / [id number] Duraclip 11mm Repositionable - [id number] Implanted:Qty: 1 on 01/24/2023 by Surendra Kemp DO at [place] [facility] Eco[employer] [id number] / / Duraclip 11mm Repositionable - [id number] Implanted:Qty: 1 on 01/24/2023 by Surendra Kemp DO at [place] [facility] [employer] [id number] / / documented as of this encounter Visit Diagnoses Diagnosis Longstanding persistent atrial fibrillation (HCC)- Primary documented in this encounter Advance [...] the patient have Health Care Power of Horse Trader? No Care Teams Supervisor Sawing And Assembly Relationship Specialty Start Date End Date Nena Richardson DO [address] [place] [address] PCP - General Cardiovascular Medicine 09/15/23 documented as of this encounter
--- OUTSIDE RECORDS SUMMARY | 2024-02-25 23:41 | External Medical Summary | Summary of Care ---
Author Name Unknown Organization [facility] Address [address] [facility] [address] Phone [phone] Care Team Providers Care Overhauler Helper Name Role Phone Nena Richardson Primary Care Provider Reason for Visit * Reason Comments Dosage Adjustment Via Phone (anticoag Cl inic) Encounter Details Date Type Department Care Team (Latest Contact Info) Description 01/21/2024 6:45 AM EDT Anticoagulation Centralized Clinical Pharmacy Services, Lisa Lion [address] [place] [address] [place] [address] [place] [address] 60 [facility] [place] [address] Atrial fibrillation, unspecified type (HCC)* Allergies Active [...] as of this encounter (statuses as of 01/21/2024) Medications Medication Sig Dispensed Refills Start Date [...] as of this encounter (statuses as of 01/21/2024) Active Problems Problem Noted Date Diagnosed Date [...] as of this encounter (statuses as of 01/21/2024) Resolved Problems Problem Noted Date Diagnosed Date [...] as of this encounter (statuses as of 01/21/2024) Immunizations Name Administration Dates Next Due Pneumococcal [...] this encounter Progress Notes * Love Kulkarni, [facility] - 01/21/2024 1:38 PM EDT [facility] [phone] Spoke to [facility] and confirmed pt remains admitted (J73). CM will call back if any d/c plans. ACC will follow up. Love Kulkarni Rph, Pharm.D. Clinical Pharmacist Centralized Clinical Pharmacy Services ([facility]) [phone] 01/21/2024,1:43 PM documented in this encounter Plan of [...] Monitoring 11/14/2016 11/15/2015 COVID-19 Vaccine ( - 2022- season) 2023 05/28/2021, 11/12/2020, 10/22/2020 [...] this encounter Medical Devices Implanted Type Area Stores Despatch Hand Device Identifier Shelf Expiration Date Model / Serial / Lot Acetabular Clusterhole Shell48 - [id number] Implanted:Qty: 1 on 05/08/2022 by Nicolás Han MD at OR [facility] Left: Hip JORDYN : ORTHOPAEDICS 08/23/2023 702-04-48D / / [id number] Hip Hd Nk Alumina Mod D 36/ 5 - [id number] Implanted:Qty: 1 on 05/08/2022 by Nicolás Han MD at [facility] Left: Hip JORDYN : ORTHOPAEDICS 01/29/2025 6570-0-036 / / [id number] Implant Stem Hip Colr Std 4 - [id number] Implanted:Qty: 1 on 05/08/2022 by Nicolás Han MD at [facility] Left: Hip JORDYN : ORTHOPAEDICS 03/06/2027 3183-4659 / / [id number] Trident Acetabular X3 0 36 D - [id number] Implanted:Qty: 1 on 05/08/2022 by Nicolás Han MD at OR [facility] Left: Hip JORDYN : ORTHOPAEDICS 723-00-36D / / [id number] Cath Cv Lumen Single 5fr - [id number] Implanted:Qty: 1 on 07/20/2022 at [facility] CR BARD : PERIPHERAL VASCULAR [id number] 07/08/2025 0418024 / / [id number] Cath Dual 6fr Line Pwr [id number] - [id number] Implanted:Qty: 1 on 07/20/2022 at [facility] CR BARD : PERIPHERAL VASCULAR [id number] 07/08/2025 3871827 / / [id number] Duraclip 11mm Repositionable - [id number] Implanted:Qty: 1 on 01/24/2023 by Surendra Kemp DO at OR [facility] eLamaMED OLEG [id number] / / Duraclip 11mm Repositionable - [id number] Implanted:Qty: 1 on 01/24/2023 by Surendra Kemp DO at OR [facility] eLamaMED OLEG [id number] / / documented as of this encounter [...] the patient have Health Care Power of Can Pusher? No Care Teams Overhauler Helper Relationship Specialty Start Date End Date Nena Richardson DO [address] [place] [address] PCP - General Cardiovascular Medicine 09/15/23 documented as of this encounter
--- OUTSIDE RECORDS SUMMARY | 2024-02-25 23:41 | External Medical Summary | Summary of Care ---
Author Name Unknown Organization [facility] Address [address] [facility] [place] [address] Phone [phone] Care Team Providers Care Liquefier Name Role Phone Nena Richardson Primary Care Provider Reason for Visit * Reason Comments Dosage Adjustment Via Phone (anticoag Cl inic) Encounter Details Date Type Department Care Team (Late st Contact Info) Description 02/07/2024 6:45 AM EDT Anticoagulation Centralized Clinical Pharmacy Services, Lisa Lion [address] [place] [address] [place] [address] [place] [address] Atrial fibrillation, unspecified type (HCC)* Allergies Active [...] as of this encounter (statuses as of 02/07/2024) Medications Medication Sig Dispensed Refills Start Date [...] as of this encounter (statuses as of 02/07/2024) Active Problems Problem Noted Date Diagnosed Date [...] as of this encounter (statuses as of 02/07/2024) Resolved Problems Problem Noted Date Diagnosed Date [...] as of this encounter (statuses as of 02/07/2024) Immunizations Name Administration Dates Next Due Pneumococcal [...] this encounter Progress Notes * Love Kulkarni, [facility] - 02/07/2024 11:58 AM EDT [facility] [phone] Spoke to [facility] and confirmed pt remains admitted (J73). ACC will follow up. Love Kulkarni Rph, Pharm.D. Clinical Pharmacist Centralized Clinical Pharmacy Services ([facility]) [phone] 02/07/2024,12:04 PM documented in this encounter Plan of [...] Cancer Screening 04/24/2025 Lipid Panel 09/10/2026 09/10/2021 GARDASIL-HPV IMMUNIZATION SERIES Aged Out No longer eligible based on patient's age to complete this topic Hepatitis B Aged Out No longer eligi ble based on patient's age to complete this topic MENINGOCOCCAL (MENACTRA/MENVEO) Aged Out No longer eligible based on patient's age to complete this topic documented as of this encounter Medical Devices Implanted Type Area Ground Products Director Device Identifier Shelf Expiration Date Model / Serial / Lot Acetabular Clusterhole Shell48 - [id number] Implanted:Qty: 1 on 05/08/2022 by Nicolás Han MD at [facility] Left: Hip JORDYN : ORTHOPAEDICS 08/23/2023 702-04-48D / / [id number] Hip Hd Nk Alumina Mod D 36/ 5 - [id number] Implanted:Qty: 1 on 05/08/2022 by Nicolás Han MD at [facility] Left: Hip JORDYN : ORTHOPAEDICS 01/29/2025 6570-0-036 / / [id number] Implant Stem Hip Colr Std 4 - [id number] Implanted:Qty: 1 on 05/08/2022 by Nicolás Han MD at [facility] Left: Hip JORDYN : ORTHOPAEDICS 03/06/2027 9986-9534 / / [id number] Trident Acetabular X3 0 36 D - [id number] Implanted:Qty: 1 on 05/08/2022 by Nicolás Han MD at [facility] Left: Hip JORDYN : ORTHOPAEDICS 723-00-36D / / [id number] Cath Cv Lumen Single 5fr - [id number] Implanted:Qty: 1 on 07/20/2022 at [facility] CR BARD : PERIPHERAL VASCULAR [id number] 07/08/2025 1303694 / / [id number] Cath Dual 6fr Line Pwr [id number] - [id number] Implanted:Qty: 1 on 07/20/2022 at [facility] CR BARD : PERIPHERAL VASCULAR [id number] 07/08/2025 [id number] / / [id number] Duraclip 11mm Repositionable - [id number] Implanted:Qty: 1 on 01/24/2023 by Surendra Kemp DO [place] [facility] CONMED OLEG [id number] / / Duraclip 11mm Repositionable - [id number] Implanted:Qty: 1 on 01/24/2023 by Surendra Kemp DO at [place] [facility] CONMED OLEG [id number] / / documented as of this encounter [...] the patient have Health Care Power of Resin Remover? No Care Teams Liquefier Relationship Specialty Start Date End Date Nena Richardson DO [address] [place] [address] PCP - General Cardiovascular Medicine 09/15/23 documented as of this encounter
--- OUTSIDE RECORDS SUMMARY | 2024-02-25 23:41 | External Medical Summary | Summary of Care ---
Author Name Unknown Organization [facility] Address [address] [facility] [address] Phone [phone] Care Team Providers Care Jalousie Installer Name Role Phone Nena Richardson Primary Care Provider Reason for Visit * Reason Comments Dosage Adjustment Via Phone (anticoag Cl inic) Encounter Details Date Type Department Care Team (Latest Contact Info) Description 01/12/2024 6:45 AM EDT Anticoagulation Centralized Clinical Pharmacy Services, Lisa Lion [address] [place] [address] [place] [address] [place] [address] 60 [facility] [place] [address] Atrial fibrillation, unspecified type (HCC)* Allergies Active [...] as of this encounter (statuses as of 01/12/2024) Medications Medication Sig Dispensed Refills Start Date [...] as of this encounter (statuses as of 01/12/2024) Active Problems Problem Noted Date Diagnosed Date [...] as of this encounter (statuses as of 01/12/2024) Resolved Problems Problem Noted Date Diagnosed Date [...] as of this encounter (statuses as of 01/12/2024) Immunizations Name Administration Dates Next Due Pneumococcal [...] Progress Notes * Love Kulkarni, [facility] - 01/12/2024 2:36 PM EDT Images from the original note were not included. [facility] [phone] Spoke to [facility] and confirmed pt remains admitted (J72 room 16). No plans for discharge at this time. ACC will follow up for d/c plans. Love Kulkarni Rph, Pharm.D. Clinical Pharmacist Centralized Clinical Pharmacy Services ([facility]) [phone] 01/12/2024,2:37 PM documented in this encounter Plan of [...] this encounter Medical Devices Implanted Type Area Breast Puller Device Identifier Shelf Expiration Date Model / Serial / Lot Acetabular Clusterhole Shell48 - [id number] Implanted:Qty: 1 on 05/08/2022 by Nicolás Han MD at OR [facility] Left: Hip JORDYN : ORTHOPAEDICS 08/23/2023 702-04-48D / / [id number] Hip Hd Nk Alumina Mod D 36/ 5 - [id number] Implanted:Qty: 1 on 05/08/2022 by Nicolás Han MD at OR [facility] Left: Hip JORDYN : ORTHOPAEDICS 01/29/2025 6570-0-036 / / [id number] Implant Stem Hip Colr Std 4 - [id number] Implanted:Qty: 1 on 05/08/2022 by Nicolás Han MD at [facility] Left: Hip JORDYN : ORTHOPAEDICS 03/06/2027 8132-2398 / / [id number] Trident Acetabular X3 0 36 D - [id number] Implanted:Qty: 1 on 05/08/2022 by Nicolás Han MD at OR [facility] Left: Hip JORDYN : ORTHOPAEDICS 723-00-36D / / [id number] Cath Cv Lumen Single 5fr - [id number] Implanted:Qty: 1 on 07/20/2022 at [facility] CR BARD : PERIPHERAL VASCULAR [id number] 07/08/2025 0960289 / / [id number] Cath Dual 6fr Line Pwr [id number] - [id number] Implanted:Qty: 1 on 07/20/2022 at [facility] CR BARD : PERIPHERAL VASCULAR [id number] 07/08/2025 7143114 / / [id number] Duraclip 11mm Repositionable - [id number] Implanted:Qty: 1 on 01/24/2023 by Surendra Kemp DO at [place] [facility] CONMED OLEG [id number] / / Duraclip 11mm Repositionable - [id number] Implanted:Qty: 1 on 01/24/2023 by Surendra Kemp DO at [place] [facility] [employer] [id number] / / documented as of this encounter [...] the patient have Health Care Power of Software Business Analyst? No Care Teams Jalousie Installer Relationship Specialty Start Date End Date Nena Richardson DO [address] [place] [address] PCP - General Cardiovascular Medicine 09/15/23 documented as of this encounter
--- OUTSIDE RECORDS SUMMARY | 2024-02-25 23:41 | External Medical Summary | Summary of Care ---
Author Name Unknown Organization [facility] Address [address] [address] Phone [phone] Care Team Providers Care Electric Distribution Checker Name Role Phone Nena Richardson Primary Care Provider Reason for Visit * Reason Comments Dosage Adjustment Via Phone (anticoag Cl inic) Encounter Details Date Type Department Care Team (Latest Contact Info) Description 01/28/2024 6:45 AM EDT Anticoagulation Centralized Clinical Pharmacy Services, Lisa Lion [address] [place] [address] [place] [phone] [place] [address] 60 [facility] [place] [address] Atrial fibrillation, unspecified type (HCC)* Allergies Active [...] as of this encounter (statuses as of 01/28/2024) Medications Medication Sig Dispensed Refills Start Date [...] as of this encounter (statuses as of 01/28/2024) Active Problems Problem Noted Date Diagnosed Date [...] as of this encounter (statuses as of 01/28/2024) Resolved Problems Problem Noted Date Diagnosed Date [...] as of this encounter (statuses as of 01/28/2024) Immunizations Name Administration Dates Next Due Pneumococcal [...] this encounter Progress Notes * Love Kulkarni, [facility] - 01/28/2024 11:55 AM EDT Images from the original note were not included. [facility] [phone] Spoke to [facility] and confirmed pt remains admitted (J73). CM will call back if any d/c plans. [facility] will follow up. Love Kulkarni Rph, Pharm.D. Clinical Pharmacist Centralized Clinical Pharmacy Services (CCPS) [phone] 01/28/2024,11:55 AM documented in this encounter Plan of [...] this encounter Medical Devices Implanted Type Area Animal Geneticist Device Identifier Shelf Expiration Date Model / Serial / Lot Acetabular Clusterhole Shell48 - [id number] Implanted:Qty: 1 on 05/08/2022 by Nicolás Han MD at [facility] Left: Hip JORDYN : ORTHOPAEDICS 08/23/2023 702-04-48D / / [id number] Hip Hd Nk Alumina Mod D 36/ 5 - [id number] Implanted:Qty: 1 on 05/08/2022 by Nicolás Han MD at [facility] Left: Hip JORDYN : ORTHOPAEDICS 01/29/2025 6570-0-036 / / [id number] Implant Stem Hip Colr Std 4 - [id number] Implanted:Qty: 1 on 05/08/2022 by Nicolás Han MD at [facility] Left: Hip JORDYN : ORTHOPAEDICS 03/06/2027 1603-8194 / / [id number] Trident Acetabular X3 0 36 D - [id number] Implanted:Qty: 1 on 05/08/2022 by Nicolás Han MD at [facility] Left: Hip JORDYN : ORTHOPAEDICS 723-00-36D / / [id number] Cath Cv Lumen Single 5fr - [id number] Implanted:Qty: 1 on 07/20/2022 at [facility] CR BARD : PERIPHERAL VASCULAR [id number] 07/08/2025 [id number] / / [id number] Cath Dual 6fr Line Pwr [id number] - [id number] Implanted:Qty: 1 on 07/20/2022 at [facility] CR BARD : PERIPHERAL VASCULAR [id number] 07/08/2025 [id number] / / [id number] Duraclip 11mm Repositionable - [id number] Implanted:Qty: 1 on 01/24/2023 by Surendra Kemp DO at OR [facility] [employer] [id number] / / Duraclip 11mm Repositionable - [id number] Implanted:Qty: 1 on 01/24/2023 by Surendra Kemp DO at OR [facility] [employer] [id number] / / documented as of this encounter [...] the patient have Health Care Power of Pediatrician Active Practice? No Care Teams Electric Distribution Checker Relationship Specialty Start Date End Date Nena Richardson DO [address] [place] [address] PCP - General Cardiovascular Medicine 09/15/23 documented as of this encounter
--- OUTSIDE RECORDS SUMMARY | 2024-02-25 23:41 | External Medical Summary | Summary of Care ---
Author Name Unknown Organization [facility] Address [address] [address] Phone [phone] Care Team Providers Care Road Contractor Name Role Phone Nena Richardson Primary Care Provider Reason for Visit * Reason Comments Dosage Adjustment Via Phone (anticoag Cl inic) Encounter Details Date Type Department Care Team (Latest Contact Info) Description 02/02/2024 6:45 AM EDT Anticoagulation Centralized Clinical Pharmacy Services, Lisa Lion [address] [place] [address] [place] [phone] [place] [phone] 60 [facility] [place] [address] Atrial fibrillation, unspecified type (HCC)* Allergies Active [...] as of this encounter (statuses as of 02/02/2024) Medications Medication Sig Dispensed Refills Start Date [...] as of this encounter (statuses as of 02/02/2024) Active Problems Problem Noted Date Diagnosed Date [...] as of this encounter (statuses as of 02/02/2024) Resolved Problems Problem Noted Date Diagnosed Date [...] as of this encounter (statuses as of 02/02/2024) Immunizations Name Administration Dates Next Due Pneumococcal [...] this encounter Progress Notes * Love Kulkarni, [facility] - 02/02/2024 12:31 PM EDT [facility] [phone] Spoke to [facility] and confirmed pt remains admitted (J73). [facility] will follow up. Love Kulkarni Rp, Pharm.D. Clinical Pharmacist Centralized Clinical Pharmacy Services (CCPS) [phone] 02/02/2024,12:35 PM documented in this encounter Plan of [...] this encounter Medical Devices Implanted Type Area Reliability Technician Device Identifier Shelf Expiration Date Model / Serial / Lot Acetabular Clusterhole Shell48 - [id number] Implanted:Qty: 1 on 05/08/2022 by Nicolás Han MD at OR [facility] Left: Hip JORDYN : ORTHOPAEDICS 08/23/2023 702-04-48D / / [id number] Hip Hd Nk Alumina Mod D 36/ 5 - [id number] Implanted:Qty: 1 on 05/08/2022 by Nicolás Han MD at [facility] Left: Hip JORDYN : ORTHOPAEDICS 01/29/2025 6570-0-036 / / [id number] Implant Stem Hip Colr Std 4 - [id number] Implanted:Qty: 1 on 05/08/2022 by Nicolás Han MD at [facility] Left: Hip JORDYN : ORTHOPAEDICS 03/06/2027 5451-6757 / / [id number] Trident Acetabular X3 0 36 D - [id number] Implanted:Qty: 1 on 05/08/2022 by Nicolás Han MD at [facility] Left: Hip JORDYN : ORTHOPAEDICS 723-00-36D / / [id number] Cath Cv Lumen Single 5fr - [id number] Implanted:Qty: 1 on 07/20/2022 at [facility] CR BARD : PERIPHERAL VASCULAR [id number] 07/08/2025 [id number] / / [id number] Cath Dual 6fr Line Pwr [id number] - [id number] Implanted:Qty: 1 on 07/20/2022 at [facility] CR BARD : PERIPHERAL VASCULAR [id number] 07/08/2025 [id number] / / [id number] Duraclip 11mm Repositionable - [id number] Implanted:Qty: 1 on 01/24/2023 by Surendra Kemp DO at OR [facility] [employer] [id number] / / Duraclip 11mm Repositionable - [id number] Implanted:Qty: 1 on 01/24/2023 by Surendra Kemp DO at OR [facility] [employer] [id number] / / documented as of this encounter [...] the patient have Health Care Power of Fish Filleter? No Care Teams Road Contractor Relationship Specialty Start Date End Date Nena Richardson DO [address] [place] [address] PCP - General Cardiovascular Medicine 09/15/23 documented as of this encounter
--- OUTSIDE RECORDS SUMMARY | 2024-02-25 23:41 | External Medical Summary | Summary of Care ---
Author Name Unknown Organization [facility] Address [address] [facility] [place] [address] Phone [phone] Care Team Providers Care Chairperson Anesthesiology Name Role Phone Nena Richardson Primary Care Provider Reason for Visit * Reason Comments Dosage Adjustment Via Phone (anticoag Cl inic) Encounter Details Date Type Department Care Team (Late st Contact Info) Description 02/04/2024 6:45 AM EDT Anticoagulation Centralized Clinical Pharmacy Services, Lisa Lion [address] [place] [address] [place] [phone] [place] [address] Atrial fibrillation, unspecified type (HCC)* Allergies Active [...] as of this encounter (statuses as of 02/04/2024) Medications Medication Sig Dispensed Refills Start Date [...] as of this encounter (statuses as of 02/04/2024) Active Problems Problem Noted Date Diagnosed Date [...] as of this encounter (statuses as of 02/04/2024) Resolved Problems Problem Noted Date Diagnosed Date [...] as of this encounter (statuses as of 02/04/2024) Immunizations Name Administration Dates Next Due Pneumococcal [...] this encounter Progress Notes * Love Kulkarni, [facility] - 02/04/2024 1:36 PM EDT [facility] [phone] Spoke to [facility] and confirmed pt remains admitted (J73). [facility] will follow up. Love Kulkarni Rph, Pharm.D. Clinical Pharmacist Centralized Clinical Pharmacy Services (CCPS) [phone] 02/04/2024,1:37 PM documented in this encounter Plan of Treatment Upcoming Encounters Date Type Department Care Team (Late st Contact Info) Description 02/07/2024 6:45 AM EDT Anticoagulation Centralized Clinical Pharmacy Services, Lisa Lion [address] [place] [address] [place] [address] [facility], [address] [place] [address] Health Maintenance Due Date Last Done Comments [...] this encounter Medical Devices Implanted Type Area Product Development Actuary Device Identifier Shelf Expiration Date Model / Serial / Lot Acetabular Clusterhole Shell48 - [id number] Implanted:Qty: 1 on 05/08/2022 by Nicolás Han MD at OR [facility] Left: Hip JORDYN : ORTHOPAEDICS 08/23/2023 702-04-48D / / [id number] Hip Hd Nk Alumina Mod D 36/ 5 - [id number] Implanted:Qty: 1 on 05/08/2022 by Nicolás Han MD at [facility] Left: Hip JORDYN : ORTHOPAEDICS 01/29/2025 6570-0-036 / / [id number] Implant Stem Hip Colr Std 4 - [id number] Implanted:Qty: 1 on 05/08/2022 by Nicolás Han MD at [facility] Left: Hip JORDYN : ORTHOPAEDICS 03/06/2027 3998-5738 / / [id number] Trident Acetabular X3 0 36 D - [id number] Implanted:Qty: 1 on 05/08/2022 by Nicolás Han MD at [facility] Left: Hip JORDYN : ORTHOPAEDICS 723-00-36D / / [id number] Cath Cv Lumen Single 5fr - [id number] Implanted:Qty: 1 on 07/20/2022 at [facility] CR BARD : PERIPHERAL VASCULAR [id number] 07/08/2025 [id number] / / [id number] Cath Dual 6fr Line Pwr [id number] - [id number] Implanted:Qty: 1 on 07/20/2022 at [facility] CR BARD : PERIPHERAL VASCULAR [id number] 07/08/2025 [id number] / / [id number] Duraclip 11mm Repositionable - [id number] Implanted:Qty: 1 on 01/24/2023 by Surendra Kemp DO at OR [facility] [employer] [id number] / / Duraclip 11mm Repositionable - [id number] Implanted:Qty: 1 on 01/24/2023 by Surendra Kemp DO at OR [facility] [employer] [id number] / / documented as of this encounter [...] the patient have Health Care Power of Manipulator Operator? No Care Teams Chairperson Anesthesiology Relationship Specialty Start Date End Date Nena Richardson DO [address] [place] [address] PCP - General Cardiovascular Medicine 09/15/23 documented as of this encounter
--- OUTSIDE RECORDS SUMMARY | 2024-02-25 23:42 | External Medical Summary | Summary of Care ---
Author Name Unknown Organization [facility] Address [address] [place] [address] Phone [phone] Care Team Providers Care Gunner'S Mate Name Role Phone Nena Richardson Primary Care Provider Encounter Details Date Type Department Care Team ([facility] Contact Info) Description 12/04/2023 Telephone Pharmacy [facility] [address] [place] [address] [facility] [address] [place] [address] Allergies Active Allergy Reactions Criticality Noted Date [...] as of this encounter (statuses as of 12/06/2023) Medications Medication Sig Dispensed Refills Start Date End Date Status MULTIVITAMIN/IRON PO TABS Take 1 Tablet by mouth in the morning. 0 Active Mirtazapine 15 MG Oral Tablet (Remeron) Take 1 Tablet by mouth at bedtime. 0 12/16/2021 Active Betamethasone Valerate 0.1 % External Ointment (Valisone) Apply topically to affected area as needed. 0 05/21/2020 Active metOLazone 2.5 MG Oral Tablet [...] by mouth in the morning. 30 Capsule 0 01/26/2023 Active Warfarin Sodium 4 MG Oral Tablet Take as directed per Coumadin instructions on you discharge paperwork. 30 Tablet 0 01/26/2023 Active oxyCODONE HCl 5 MG Oral Tablet (Oxy IR) TAKE ONE TABLET BY MOUTH EVERY 6 HOURS NEEDED FOR PAIN FOR UP TO SEVEN DAYS 0 01/21/2023 Active Torsemide 100 MG Oral Tablet [...] as of this encounter (statuses as of 12/06/2023) Active Problems Problem Noted Date Diagnosed Date [...] as of this encounter (statuses as of 12/06/2023) Resolved Problems Problem Noted Date Diagnosed Date [...] Right-sided epistaxis 06/08/20202019 Acute blood loss anemia 06/08/2020 103 Jag positive 06/08/2020 06/09/2020 documented as of this encounter (statuses as of 12/06/2023) Immunizations Name Administration Dates Next Due Pneumococcal [...] No 01/23/2023 documented as of this encounter Miscellaneous Notes * Telephone Encounter - Marco Antonio Matthews [facility] - 12/04/2023 3:42 PM EDT Patient returned call, left message that she was in the ED yesterday, reports she broke her shoulder and nose. Notes INR is 2.4 was drawn while in the ED yesterday. Patient was discharged on oxycodone, tramadol, and APAP. Reports she will also be using sublingual CBD oil PRN for nausea. Instructed patient to take 6 mg of warfarin today and resume normal weekly dosing. Repeat INR scheduled for 12/07. Marco Antonio Matthews Clinical Pharmacist 12/04/2023, 3:43 PM * Telephone Encounter - Marco Antonio Matthews RPh - 12/04/2023 2:29 PM EDT Received concrete buildings assembler VM from patient noting concerns of elevated INR due to fall and bleeding that occurred yesterday. Returned call to patient, unable to reach her LVOM informing her that [facility] will try to reach her again shortly. 2:50pm- Unable to reach patient, LVOM for patient informing her that if she hit her head with fall yesterday, she should seek urgent medical attention. Instructed patient that if she currently is experiencing any s/sx of bleeding such as blood in urine or stool, patient should go to the ED. Will try to reach patient again. Marco Antonio Matthews Clinical Pharmacist 12/04/2023, 2:30 PM documented in this encounter Plan of Treatment Upcoming Encounters Date Type Department Care Team (Late st Contact Info) Description 12/08/2023 6:30 AM EDT Anticoagulation Pharmacy Call Center [address] [place] [address] [facility] 58 60 [facility] [place] [address] Health Maintenance Due Date Last Done Comments [...] this encounter Medical Devices Implanted Type Area Deputy Felony Clerk Device Identifier Shelf Expiration Date Model / Serial / Lot Acetabular Clusterhole Shell48 - [id number] Implanted:Qty: 1 on 05/08/2022 by Nicolás Han MD at OR [facility] Left: Hip JORDYN : ORTHOPAEDICS 08/23/2023 702-04-48D / / [id number] Hip Hd Nk Alumina Mod D 36/ 5 - [id number] Implanted:Qty: 1 on 05/08/2022 by Nicolás Han MD at OR [facility] Left: Hip JORDYN : ORTHOPAEDICS 01/29/2025 6570-0-036 / / [id number] Implant Stem Hip Colr Std 4 - [id number] Implanted:Qty: 1 on 05/08/2022 by Nicolás Han MD at [facility] Left: Hip JORDYN : ORTHOPAEDICS 03/06/2027 7110-6775 / / [id number] Trident Acetabular X3 0 36 D - [id number] Implanted:Qty: 1 on 05/08/2022 by Nicolás Han MD at OR [facility] Left: Hip JORDYN : ORTHOPAEDICS 723-00-36D / / [id number] Cath Cv Lumen Single 5fr - [id number] Implanted:Qty: 1 on 07/20/[address] [facility] CR BARD : PERIPHERAL VASCULAR [id number] 07/08/2025 [id number] / / [id number] Cath Dual 6fr Line Pwr [id number] - [id number] Implanted:Qty: 1 on 07/20/[address] [facility] CR BARD : PERIPHERAL VASCULAR [id number] 07/08/2025 [id number] / / [id number] Duraclip 11mm Repositionable - [id number] Implanted:Qty: 1 on 01/24/2023 by Surendra Kemp DO at OR [facility] [employer] [id number] / / Duraclip 11mm Repositionable - [id number] Implanted:Qty: 1 on 01/24/2023 by Surendra Kemp DO at OR [facility] [employer] [id number] / / documented as of this encounter Procedures Procedure Name Priority Date/Time Associated Diagnosis Comments OUTSIDE LAB-PT/INR Routine 12/03/2023 documented in this encounter Results * OUTSIDE LAB-PT/INR (12/03/2023) INR-OUTSIDE LAB 2.4 12/03/2023 History Per Patient LABORATORY documented in this encounter Visit Diagnoses Diagnosis Longstanding persistent atrial fibrillation (HCC)- Primary documented in this encounter Advance Directives Latest Code Status on File Code Status Date Activated Date Inactivated Comments Full Code 01/23/2023 2:36 AM 01/26/2023 2:13 PM This order reflects the patients wishes and were consensually agreed upon. Question Answer Comments Discussion of Advance Directives occurred with: Patient Code Status History Code Status Date Activated Date Inactivated Comments Full Code 09/18/2022 4:02 PM 09/27/2022 6:55 PM This order reflects the patients wishes and were consensually agreed upon. Question Answer Comments Discussion of Advance Directives occurred with: Patient Does the patient have a Living Will? No Does the patient have Health Care Power of Community Outreach Advocate? No Full Code 08/13/2022 2:07 AM 08/28/2022 4:50 PM This o rder reflects the patients wishes and were consensually agreed upon. Question Answer Comments Discussion of Advance Directives occurred with: Patient Full Code 07/04/2022 8:25 PM 07/24/2022 5:52 PM Thi s order reflects the patients wishes and were consensually agreed upon. Question Answer Comments Discussion of Advance Directives occurred with: Patient Full Code 05/25/2022 10:46 PM 06/07/2022 4:57 PM Th is order reflects the patients wishes and were consensually agreed upon. Question Answer Comments Discussion of Advance Directives occurred with: Not Discussed due to patient's condition Does the patient have a Living Will? No Does the patient have Health Care Power of Community Outreach Advocate? No Care Teams Gunner'S Mate Relationship Specialty Start Date End Date Nena Richardson DO [address] [place] [address] PCP - General Cardiovascular Medicine 09/15/23 documented as of this encounter
--- OUTSIDE RECORDS SUMMARY | 2024-02-25 23:42 | External Medical Summary | Summary of Care ---
Author Name Unknown Organization [facility] Address [address] [facility] [place] [address] Phone [phone] Care Team Providers Care Threshing Operator Name Role Phone Nena Richardson Primary Care Provider Reason for Visit * Reason Comments Dosage Adjustment Via Phone (anticoag Cl inic) Encounter Details Date Type Department Care Team (Latest Contact Info) Description 01/10/2024 6:45 AM EDT Anticoagulation Pharmacy Call Center [phone] [place] [address] [facility] [address] [place] [address] Atrial fibrillation, unspecified type (HCC)* Allergies Active [...] as of this encounter (statuses as of 01/10/2024) Medications Medication Sig Dispensed Refills Start Date [...] as of this encounter (statuses as of 01/10/2024) Active Problems Problem Noted Date Diagnosed Date [...] as of this encounter (statuses as of 01/10/2024) Resolved Problems Problem Noted Date Diagnosed Date [...] as of this encounter (statuses as of 01/10/2024) Immunizations Name Administration Dates Next Due Pneumococcal [...] encounter Progress Notes * Love Kulkarni, [facility] - 01/10/2024 2:47 PM EDT Images from the original note were not included. [facility] [phone] Spoke to [facility] and confirmed pt remains admitted (J72 room 16). No plans for discharge at this time. [facility] will follow up for d/c plans. Love Kulkarni Rp, Pharm.D. Clinical Pharmacist Centralized Clinical Pharmacy Services (CCPS) (formerly Telepharmacy) [phone] 01/10/2024,2:48 PM documented in this encounter Plan of [...] this encounter Medical Devices Implanted Type Area Bilingual Call Center Representative Device Identifier Shelf Expiration Date Model / Serial / Lot Acetabular Clusterhole Shell48 - [id number] Implanted:Qty: 1 on 05/08/2022 by Nicolás Han MD at OR [facility] Left: Hip JORDYN : ORTHOPAEDICS 08/23/2023 702-04-48D / / [id number] Hip Hd Nk Alumina Mod D 36/ 5 - [id number] Implanted:Qty: 1 on 05/08/2022 by Nicolás Han MD at OR [facility] Left: Hip JORDYN : ORTHOPAEDICS 01/29/2025 6570-0-036 / / [id number] Implant Stem Hip Colr Std 4 - [id number] Implanted:Qty: 1 on 05/08/2022 by Nicolás Han MD at [facility] Left: Hip JORDYN : ORTHOPAEDICS 03/06/2027 3333-5971 / / [id number] Trident Acetabular X3 0 36 D - [id number] Implanted:Qty: 1 on 05/08/2022 by Nicolás Han MD at OR [facility] Left: Hip JORDYN : ORTHOPAEDICS 723-00-36D / / [id number] Cath Cv Lumen Single 5fr - [id number] Implanted:Qty: 1 on 07/20/2022 at [facility] CR BARD : PERIPHERAL VASCULAR [id number] 07/08/2025 [id number] / / [id number] Cath Dual 6fr Line Pwr [id number] - [id number] Implanted:Qty: 1 on 07/20/2022 at [facility] CR BARD : PERIPHERAL VASCULAR [id number] 07/08/2025 [id number] / / [id number] Duraclip 11mm Repositionable - [id number] Implanted:Qty: 1 on 01/24/2023 by Surendra Kemp DO at OR [facility] [place] [facility] fake company 2.0 OLEG [id number] / / Duraclip 11mm Repositionable - [id number] Implanted:Qty: 1 on 01/24/2023 by Surendra Kemp DO at OR [facility] [place] [employer] [id number] / / documented as of this encounter [...] the patient have Health Care Power of Application Manager? No Care Teams Threshing Operator Relationship Specialty Start Date End Date Nena Richardson DO [address] [place] [address] PCP - General Cardiovascular Medicine 09/15/23 documented as of this encounter
--- OUTSIDE RECORDS SUMMARY | 2024-02-25 23:42 | External Medical Summary | Summary of Care ---
Author Name Unknown Organization [facility] Address [address] [place] [address] Phone [phone] Care Team Providers Care Private Branch Exchange Service Advisor Name Role Phone Nena Richardson Primary Care Provider Reason for Visit * Reason Comments Dosage Adjustment Via Phone (anticoag Cl inic) Encounter Details Date Type Department Care Team (Latest Contact Info) Description 01/07/2024 6:45 AM EDT Anticoagulation Pharmacy Call Center [address] [place] [address] [facility] [address] [place] [address] Longstanding persistent atrial fibrillation (HCC)* Allergies Active [...] as of this encounter (statuses as of 01/07/2024) Medications Medication Sig Dispensed Refills Start Date [...] as of this encounter (statuses as of 01/07/2024) Active Problems Problem Noted Date Diagnosed Date [...] as of this encounter (statuses as of 01/07/2024) Resolved Problems Problem Noted Date Diagnosed Date [...] as of this encounter (statuses as of 01/07/2024) Immunizations Name Administration Dates Next Due Pneumococcal [...] as of this encounter Progress Notes * Kristin Barber, [facility] - 01/07/2024 11:43 AM EDT [facility] [phone] Spoke to [facility] and confirmed pt remains admitted (J72 room 16). No plans for discharge at this time. [facility] will follow up for d/c plans. Thank you, Kristin Barber, PharmD Clinical Pharmacist Centralized Clinical Pharmacy Services (CCPS) (formerly Telepharmacy) 01/07/2024 11:47 AM documented in this encounter Plan of Treatment Upcoming Encounters Date Type Department Care Team (Late st Contact Info) Description 01/10/2024 6:45 AM EDT Anticoagulation Pharmacy Call Center [address] [facility] [place] [address] [facility] 58 60 [facility] [place] [address] Health Maintenance Due Date Last Done Comments [...] this encounter Medical Devices Implanted Type Area Chief Psychology Device Identifier Shelf Expiration Date Model / Serial / Lot Acetabular Clusterhole Shell48 - [id number] Implanted:Qty: 1 on 05/08/2022 by Nicolás Han MD at OR ED [facility] Left: Hip JORDYN : ORTHOPAEDICS 08/23/2023 702-04-48D / / [id number] Hip Hd Nk Alumina Mod D 36/ 5 - [id number] Implanted:Qty: 1 on 05/08/2022 by Nicolás Han MD at OR ED [facility] Left: Hip JORDYN : ORTHOPAEDICS 01/29/2025 6570-0-036 / / [id number] Implant Stem Hip Colr Std 4 - [id number] Implanted:Qty: 1 on 05/08/2022 by Nicolás Han MD at OR ED [facility] Left: Hip JORDYN : ORTHOPAEDICS 03/06/2027 9803-5632 / / [id number] Trident Acetabular X3 0 36 D - [id number] Implanted:Qty: 1 on 05/08/2022 by Nicolás Han MD at OR ED [facility] Left: Hip JORDYN : ORTHOPAEDICS 723-00-36D / / [id number] Cath Cv Lumen Single 5fr - [id number] Implanted:Qty: 1 on 07/20/2022 at [facility] CR BARD : PERIPHERAL VASCULAR [id number] 07/08/2025 [id number] / / [id number] Cath Dual 6fr Line Pwr [id number] - [id number] Implanted:Qty: 1 on 07/20/2022 at [facility] CR BARD : PERIPHERAL VASCULAR [id number] 07/08/2025 [id number] / / [id number] Duraclip 11mm Repositionable - [id number] Implanted:Qty: 1 on 01/24/2023 by Surendra Kemp, DO at OR [facility] [employer] OLEG [id number] / / Duraclip 11mm Repositionable - [id number] Implanted:Qty: 1 on 01/24/2023 by Surendra Kemp, DO at OR [facility] Nexi [id number] / / documented as of this encounter [...] the patient have Health Care Power of Basin Operator? No Care Teams Private Branch Exchange Service Advisor Relationship Specialty Start Date End Date Nena Richardson DO [address] [place] [address] PCP - General Cardiovascular Medicine 09/15/23 documented as of this encounter
--- OUTSIDE RECORDS SUMMARY | 2024-02-25 23:42 | External Medical Summary | Summary of Care ---
Author Name Unknown Organization [facility] Address [address] [facility] [place] [address] Phone [phone] Care Team Providers Care Chief Controller Station Name Role Phone Nena Richardson Primary Care Provider Encounter Details Date Type Department Care Team (Late st Contact Info) Description 12/14/2023 Result Scan Unspecified Department <No scans attached> Allergies Active Allergy Reactions Criticality Noted Date [...] as of this encounter (statuses as of 12/15/2023) Medications Medication Sig Dispensed Refills Start Date [...] as of this encounter (statuses as of 12/15/2023) Active Problems Problem Noted Date Diagnosed Date [...] as of this encounter (statuses as of 12/15/2023) Resolved Problems Problem Noted Date Diagnosed Date [...] epistaxis 06/08/20202019 Acute blood loss anemia 06/08/2020 10/3 Jag positive 06/08/2020 06/09/2020 documented as of this encounter (statuses as of 12/15/2023) Immunizations Name Administration Dates Next Due Pneumococcal [...] No 01/23/2023 documented as of this encounter Plan of Treatment Upcoming Encounters Date Type Department Care Team (Latest Contact Info) Description 12/15/2023 6:15 PM EDT Anticoagulation Pharmacy Call Center [address] [place] [address] [facility] 58 60 [facility] [place] [address] Longstanding persistent atrial fibrillation (HCC)* 12/27/2023 6:30 AM EDT Anticoagulation Pharmacy Call Center WB [address] [facility] [place] [address] [facility] 58 60 [facility] [place] [address] Health Maintenance Due Date Last Done Comments [...] this encounter Medical Devices Implanted Type Area Supervisor Stave Cutting Device Identifier Shelf Expiration Date Model / Serial / Lot Acetabular Clusterhole Shell48 - [id number] Implanted:Qty: 1 on 05/08/2022 by Nicolás Han MD at OR [facility] Left: Hip JORDYN : ORTHOPAEDICS 08/23/2023 702-04-48D / / [id number] Hip Hd Nk Alumina Mod D 36/ 5 - [id number] Implanted:Qty: 1 on 05/08/2022 by Nicolás Han MD at [facility] Left: Hip JORDYN : ORTHOPAEDICS 01/29/2025 6570-0-036 / / [id number] Implant Stem Hip Colr Std 4 - [id number] Implanted:Qty: 1 on 05/08/2022 by Nicolás Han MD at [facility] Left: Hip JORDYN : ORTHOPAEDICS 03/06/2027 4495-5879 / / [id number] Trident Acetabular X3 0 36 D - [id number] Implanted:Qty: 1 on 05/08/2022 by Nicolás Han MD at [facility] Left: Hip JORDYN : ORTHOPAEDICS 723-00-36D / / [id number] Cath Cv Lumen Single 5fr - [id number] Implanted:Qty: 1 on 07/20/2022 at [facility] CR BARD : PERIPHERAL VASCULAR [id number] 07/08/2025 [id number] / / [id number] Cath Dual 6fr Line Pwr [id number] - [id number] Implanted:Qty: 1 on 07/20/2022 at [facility] CR BARD : PERIPHERAL VASCULAR [id number] 07/08/2025 [id number] / / [id number] Duraclip 11mm Repositionable - [id number] Implanted:Qty: 1 on 01/24/2023 by Surendra Kemp DO at [place] [facility] [employer] OLEG [id number] / / Duraclip 11mm Repositionable - [id number] Implanted:Qty: 1 on 01/24/2023 by Surendra Kemp DO at [place] [facility] [employer] OLEG [id number] / / documented as of this encounter Procedures Procedure Name Priority Date/Time Associated Diagnosis Comments OUTSIDE LAB RESULTS 12/14/2023 documented in this encounter Results * OUTSIDE LAB RESULTS (12/14/2023) 12/14/2023 No Physician Data Unknown LABORATORY documented in this encounter Advance Directives Latest [...] the patient have Health Care Power of Sap Bi Developer? No Full Code 08/13/2022 2:07 AM 08/28/2022 [...] the patient have Health Care Power of Sap Bi Developer? No Care Teams Chief Controller Station Relationship Specialty Start Date End Date Nena Richardson DO [address] [place] [address] PCP - General Cardiovascular Medicine 09/15/23 documented as of this encounter
--- OUTSIDE RECORDS SUMMARY | 2024-02-25 23:42 | External Medical Summary | Summary of Care ---
Author Name Unknown Organization [facility] [address] [facility] [address] Phone [phone] Care Team Providers Care Cdl Truck Driver Name Role Phone Nena Richardson Primary Care Provider Reason for Visit * Reason Comments Dosage Adjustment Via Phone (anticoag Cl inic) Encounter Details Date Type Department Care Team (Latest Contact Info) Description 12/13/2023 6:30 AM EDT Anticoagulation Pharmacy Call Center [address] [place] [address] [facility] [address] [place] [address] Longstanding persistent atrial fibrillation (HCC)* Allergies Active [...] as of this encounter (statuses as of 12/13/2023) Medications Medication Sig Dispensed Refills Start Date [...] as of this encounter (statuses as of 12/13/2023) Active Problems Problem Noted Date Diagnosed Date [...] as of this encounter (statuses as of 12/13/2023) Resolved Problems Problem Noted Date Diagnosed Date [...] as of this encounter (statuses as of 12/13/2023) Immunizations Name Administration Dates Next Due Pneumococcal [...] as of this encounter Progress Notes * GuLove lundberg RP - 12/13/2023 9:14 AM EDT PT/INR order signed and faxed as reqeusted. [facility] will follow up for result. Love Kulkarni Rp, Pharm.D. Clinical Pharmacist Centralized Clinical Pharmacy Services (CCPS) (formerly Telepharmacy) [phone] 12/13/2023,9:14 AM * Wendy Junior fire prevention inspector - 12/13/2023 8:09 AM EDT Patient Phone Numbers Spoke with patient to remind her she is due to self test for INR check. Patient states she is having trouble testing, her right hand is very swollen and she is unable to prick that hand, or use it toprick left hand. She would like to have INR drawn at lab, she will try to go today. Please fax PT/INR order to [facility] in [place], [place]; fax number [phone]. Follow up call scheduled. Thank you, Wendy Junior Paint Grinder Stone [employer] Centralized Clinical Pharmacy Services (CCPS) 12/13/2023,8:10 AM documented in this encounter Plan of Treatment Upcoming Encounters Date Type Department Care Team (Late st Contact Info) Description 12/14/2023 6:30 AM EDT Anticoagulation Pharmacy Call Center [address] [place] [address] [facility] 58 60 [place] [address] Scheduled Orders Name Type Priority Associated Diagnoses Orde r Schedule PT INR Lab Routine Longstanding persistent atrial fibrillation (HCC) Other, Please specify in Comments field for 26 Occurrences starting 12/13/2023 until 12/12/2024 Health Maintenance Due Date Last Done Comments [...] this encounter Medical Devices Implanted Type Area Flower Stripper Device Identifier Shelf Expiration Date Model / Serial / Lot Acetabular Clusterhole Shell48 - [id number] Implanted:Qty: 1 on 05/08/2022 by Nicolás Han MD at OR [facility] Left: Hip JORDYN : ORTHOPAEDICS 08/23/2023 702-04-48D / / [id number] Hip Hd Nk Alumina Mod D 36/ 5 - [id number] Implanted:Qty: 1 on 05/08/2022 by Nicolás Han MD at OR [facility] Left: Hip JORDYN : ORTHOPAEDICS 01/29/2025 6570-0-036 / / [id number] Implant Stem Hip Colr Std 4 - [id number] Implanted:Qty: 1 on 05/08/2022 by Nicolás Han MD at OR [facility] Left: Hip JORDYN : ORTHOPAEDICS 03/06/2027 6045-8255 / / [id number] Trident Acetabular X3 0 36 D - [id number] Implanted:Qty: 1 on 05/08/2022 by Nicolás Han MD at OR [facility] Left: Hip JORDYN : ORTHOPAEDICS 723-00-36D / / [id number] Cath Cv Lumen Single 5fr - [id number] Implanted:Qty: 1 on 07/20/2022 at [facility] CR BARD : PERIPHERAL VASCULAR [id number] 07/08/2025 [id number] / / [id number] Cath Dual 6fr Line Pwr [id number] - [id number] Implanted:Qty: 1 on 07/20/2022 at [facility] CR BARD : PERIPHERAL VASCULAR [id number] 07/08/2025 [id number] / / [id number] Duraclip 11mm Repositionable - [id number] Implanted:Qty: 1 on 01/24/2023 by Surendra Kemp DO at [place] [facility] [employer] OLEG [id number] / / Duraclip 11mm Repositionable - [id number] Implanted:Qty: 1 on 01/24/2023 by Surendra Kemp DO at OR [facility] CONMED OLEG [id number] / / documented as of this encounter [...] the patient have Health Care Power of Mobility Architect Manager? No Full Code 08/13/2022 2:07 AM 08/28/2022 [...] the patient have Health Care Power of Mobility Architect Manager? No Care Teams Cdl Truck Driver Relationship Specialty Start Date End Date Nena Richardson DO [address] [place] [address] PCP - General Cardiovascular Medicine 09/15/23 documented as of this encounter
--- OUTSIDE RECORDS SUMMARY | 2024-02-25 23:42 | External Medical Summary | Summary of Care ---
Author Name Unknown Organization [facility] Address [address] [place] [facility] [place] [address] Phone [phone] Care Team Providers Care Community Service Coordinator Name Role Phone Nena Richardson Primary Care Provider Reason for Visit * Reason Comments Dosage Adjustment Via Phone (anticoag Cl inic) Encounter Details Date Type Department Care Team (Latest Contact Info) Description 12/27/2023 6:30 AM EDT Anticoagulation Pharmacy Call Center [address] [place] [address] [facility] [address] [place] [address] Longstanding persistent atrial fibrillation (HCC)* Allergies Active [...] as of this encounter (statuses as of 12/27/2023) Medications Medication Sig Dispensed Refills Start Date [...] as of this encounter (statuses as of 12/27/2023) Active Problems Problem Noted Date Diagnosed Date [...] as of this encounter (statuses as of 12/27/2023) Resolved Problems Problem Noted Date Diagnosed Date [...] as of this encounter (statuses as of 12/27/2023) Immunizations Name Administration Dates Next Due Pneumococcal [...] of this encounter Progress Notes * Love KulkarniPastora - 12/27/2023 12:28 PM EDT Noted, ACC will follow up at discharge Love Kulkarni Rph, Pharm.D. Clinical Pharmacist Centralized Clinical Pharmacy Services (CCPS) (formerly Telepharmacy) [phone] 12/27/2023,12:29 PM * Wendy Junior PHARM Tech - 12/27/2023 8:09 AM EDT Patient Phone Numbers Spoke with patient to see if she was able to do INR check. [facility] no discharge date as of time of call. Please advise. Thank you, Wendy Junior Singer And Unloader Centralized Clinical Pharmacy Services (CCPS) 12/27/2023,8:09 AM documented in this encounter Plan of Treatment Upcoming Encounters Date Type Department Care Team (Late st Contact Info) Description 12/28/2023 6:45 AM EDT Anticoagulation Pharmacy Call Center [address] [place] [address] [facility] 58 60 [place] [address] Health Maintenance Due Date Last Done Comments [...] this encounter Medical Devices Implanted Type Area Crocheter Device Identifier Shelf Expiration Date Model / Serial / Lot Acetabular Clusterhole Shell48 - [id number] Implanted:Qty: 1 on 05/08/2022 by Nicolás Han MD at OR [facility] Left: Hip JORDYN : ORTHOPAEDICS 08/23/2023 702-04-48D / / [id number] Hip Hd Nk Alumina Mod D 36/ 5 - [id number] Implanted:Qty: 1 on 05/08/2022 by Nicolás Han MD at OR [facility] Left: Hip JORDYN : ORTHOPAEDICS 01/29/2025 6570-0-036 / / [id number] Implant Stem Hip Colr Std 4 - [id number] Implanted:Qty: 1 on 05/08/2022 by Nicolás Han MD at OR [facility] Left: Hip JORDYN : ORTHOPAEDICS 03/06/2027 5807-5476 / / [id number] Trident Acetabular X3 0 36 D - [id number] Implanted:Qty: 1 on 05/08/2022 by Nicolás Han MD at OR [facility] Left: Hip JORDYN : ORTHOPAEDICS 723-00-36D / / [id number] Cath Cv Lumen Single 5fr - [id number] Implanted:Qty: 1 on 07/20/2022 at [facility] CR BARD : PERIPHERAL VASCULAR [id number] 07/08/2025 [id number] / / [id number] Cath Dual 6fr Line Pwr [id number] - [id number] Implanted:Qty: 1 on 07/20/2022 at [facility] CR BARD : PERIPHERAL VASCULAR [id number] 07/08/2025 0938381 / / [id number] Duraclip 11mm Repositionable - [id number] Implanted:Qty: 1 on 01/24/2023 by Surendra Kemp DO at OR [facility] [employer] - Private Location [employer] OLEG [id number] / / Duraclip 11mm Repositionable - [id number] Implanted:Qty: 1 on 01/24/2023 by Surendra Kemp, at OR [facility] [employer] - Private Location [employer] OLEG [id number] / / documented as of this encounter [...] the patient have Health Care Power of Rental Clerk? No Care Teams Community Service Coordinator Relationship Specialty Start Date End Date Nena Richardson DO [address] [place] [id number] PCP - General Cardiovascular Medicine 09/15/23 documented as of this encounter
--- OUTSIDE RECORDS SUMMARY | 2024-02-25 23:42 | External Medical Summary | Summary of Care ---
Author Name Unknown Organization [facility] Address [address] [facility] [place] [address] Phone [phone] Care Team Providers Care Water Filterer Helper Name Role Phone Nena Richardson Primary Care Provider Reason for Visit * Reason Comments Dosage Adjustment Via Phone (anticoag Cl inic) Encounter Details Date Type Department Care Team (Latest Contact Info) Description 11/30/2023 6:15 PM EDT Anticoagulation Pharmacy Call Center [address] [place] [address] [facility] [address] [place] [address] Atrial fibrillation, unspecified type (HCC)* Allergies Active [...] as of this encounter (statuses as of 11/30/2023) Medications Medication Sig Dispensed Refills Start Date [...] as of this encounter (statuses as of 11/30/2023) Active Problems Problem Noted Date Diagnosed Date [...] as of this encounter (statuses as of 11/30/2023) Resolved Problems Problem Noted Date Diagnosed Date [...] epistaxis 06/08/20202019 Acute blood loss anemia 06/08/2020 10 Jag positive 06/08/2020 06/09/2020 documented as of this encounter (statuses as of 11/30/2023) Immunizations Name Administration Dates Next Due Pneumococcal [...] as of this encounter Progress Notes * Melany Franz CPhT - 11/30/2023 4:22 PM EDT Contacts Type Contact Phone/Fax 11/30/2023 04:12 PM EDT Phone (Outgoing) Dilma Hogan (Self) [phone] (M) Left Message Subjective Patient Findings Negatives: Signs/symptoms of bleeding, Change in health, Change in activity, Upcoming invasive procedure, Missed doses, Extra doses, Change in medications, Change in diet/appetite, Bruising Advised patient to contact Anticoagulation Clinic if any unusual bruising or bleeding, recent illness, changes in medication, or questions/concerns. PT/INR results, Coumadin dose instructions, and next PT/INR date communicated as noted by Pharmacist: Yes Melany Franz CPhT 11/30/2023, 4:23 PM * Love Kulkarni RPh - 11/30/2023 3:38 PM EDT Images from the original note were not included. Coumadin Clinic (region specific) Objective Current Warfarin Dose As of 11/30/2023 Warfarin maintenance plan: 4 mg (1 mg x 4) every day INR Result As of 11/30/2023 INR goal: 2.5-3.5 INR used for dosin.9 (11/30/2023) Assessment & Plan Warfarin Plan As of 11/30/2023 Full warfarin instructions: 11/29: Hold; Otherwise 2 mg every Fri; 4 mg all other days Next INR check: 12/07/2023 Repeat PT/INR in 1 week(s) Weekly dose: decreased Additional Dosing Information: Description Home machine - weekly checks 09/24/23 - pt in the process of establishing with pcp/cardio in [facility] to contact patient with dose instructions as noted. Love Kulkarni RPh 11/30/2023, 3:38 PM documented in this encounter Plan of Treatment Upcoming Encounters Date Type Department Care Team ([facility] st Contact Info) Description 12/08/2023 6:30 AM EDT Anticoagulation Pharmacy Call Center [address] [facility] [place] [address] [facility] 58 60 [facility] [place] [address] Health Maintenance Due Date Last Done Comments [...] this encounter Medical Devices Implanted Type Area Felt Hat Inspector And Packer Device Identifier Shelf Expiration Date Model / Serial / Lot Acetabular Clusterhole Shell48 - [id number] Implanted:Qty: 1 on 05/08/2022 by Nicolás Han MD at OR [facility] Left: Hip JORDYN : ORTHOPAEDICS 08/23/2023 702-04-48D / / [id number] Hip Hd Nk Alumina Mod D 36/ 5 - [id number] Implanted:Qty: 1 on 05/08/2022 by Nicolás Han MD at [facility] Left: Hip JORDYN : ORTHOPAEDICS 01/29/2025 6570-0-036 / / [id number] Implant Stem Hip Colr Std 4 - [id number] Implanted:Qty: 1 on 05/08/2022 by Nicolás Han MD at [facility] Left: Hip JORDYN : ORTHOPAEDICS 03/06/2027 7061-9087 / / [id number] Trident Acetabular X3 0 36 D - [id number] Implanted:Qty: 1 on 05/08/2022 by Nicolás Han MD at [facility] Left: Hip JORDYN : ORTHOPAEDICS 723-00-36D / / [id number] Cath Cv Lumen Single 5fr - [id number] Implanted:Qty: 1 on 07/20/2022 at [facility] CR BARD : PERIPHERAL VASCULAR [id number] 07/08/2025 [id number] / / [id number] Cath Dual 6fr Line Pwr [id number] - [id number] Implanted:Qty: 1 on 07/20/2022 at [facility] CR BARD : PERIPHERAL VASCULAR [id number] 07/08/2025 [id number] / / [id number] Duraclip 11mm Repositionable - [id number] Implanted:Qty: 1 on 01/24/2023 by Surendra Kemp DO [place] [facility] [employer] OLEG [id number] / / Duraclip 11mm Repositionable - [id number] Implanted:Qty: 1 on 01/24/2023 by Surendra Kemp DO at [place] [facility] [employer]G [id number] / / documented as of this encounter Procedures Procedure Name Priority Date/Time Associated Diagnosis Comments OUTSIDE LAB-PT/INR Routine 11/30/2023 documented in this encounter Results * OUTSIDE LAB-PT/INR (11/30/2023) INR-OUTSIDE LAB 3.9 HOME FINGERSTIC K DEVICE History Per Patient LABORATORY HOME FINGERSTICK DEVICE documented in this encounter Visit Diagnoses Diagnosis Atrial fibrillation, [...] the patient have Health Care Power of Lace Paper Machine Operator? No Full Code 08/13/2022 2:07 AM 08/28/2022 [...] the patient have Health Care Power of Lace Paper Machine Operator? No Care Teams Water Filterer Helper Relationship Specialty Start Date End Date Nena Richardson DO [address] [place] [address] PCP - General Cardiovascular Medicine 09/15/23 documented as of this encounter
--- OUTSIDE RECORDS SUMMARY | 2024-02-25 23:42 | External Medical Summary | Summary of Care ---
Author Name Unknown Organization [facility] Address [address] [place] [address] Phone [phone] Care Team Providers Care Plywood And Veneer Repairer Name Role Phone Nena Richardson Primary Care Provider Encounter Details Date Type Department Care Team ([facility] Contact Info) Description 12/04/2023 Telephone Pharmacy [facility] [address] [place] [address] [facility] [address] [place] [address] Allergies Active Allergy Reactions Criticality [...] encounter Miscellaneous Notes * Telephone Encounter - Claudia Pereyra [facility] - 12/06/2023 9:47 AM EDT Noted. [facility] will follow up with next INR on 12/07. Thank You Claudia Pereyra PharmD Clinical Pharmacist Centralized Clinical Pharmacy Services (CCPS) (formerly [employer]) [phone] / [phone] 12/06/2023, 9:48 AM * Telephone Encounter - Marco Antonio Matthews RPh - 12/04/2023 3:42 PM EDT Patient returned [...] Repeat INR scheduled for 12/07. Marco Antonio Araujo Pharmacist 12/04/2023, 3:43 PM * Telephone Encounter - Marco Antonio Matthews RPh - 12/04/2023 2:29 PM EDT Received precision lens grinder apprentice VM from patient noting concerns of elevated [...] try to reach patient again. Marco Antonio Araujo Pharmacist 12/04/2023, 2:30 PM documented in this encounter Plan of Treatment Upcoming Encounters Date Type Department Care Team (Late st Contact Info) Description 12/08/2023 6:30 AM EDT Anticoagulation Pharmacy Call Center [address] [facility] [place] [address] [facility] 58 60 [facility] [place] [address] Health Maintenance Due Date Last Done Comments [...] this encounter Medical Devices Implanted Type Area Warehouse Manager Device Identifier Shelf Expiration Date Model / Serial / Lot Acetabular Clusterhole Shell48 - [id number] Implanted:Qty: 1 on 05/08/2022 by Nicolás Han MD at [facility] Left: Hip JORDYN : ORTHOPAEDICS 08/23/2023 702-04-48D / / [id number] Hip Hd Nk Alumina Mod D 36/ 5 - [id number] Implanted:Qty: 1 on 05/08/2022 by Nicolás Han MD at [facility] Left: Hip JORDYN : ORTHOPAEDICS 01/29/2025 6570-0-036 / / [id number] Implant Stem Hip Colr Std 4 - [id number] Implanted:Qty: 1 on 05/08/2022 by Nicolás Han MD at [facility] Left: Hip JORDYN : ORTHOPAEDICS 03/06/2027 1710-3882 / / [id number] Trident Acetabular X3 0 36 D - [id number] Implanted:Qty: 1 on 05/08/2022 by Nicolás Han MD at [facility] Left: Hip JORDYN : ORTHOPAEDICS 723-00-36D / / [id number] Cath Cv Lumen Single 5fr - [id number] Implanted:Qty: 1 on 07/20/2022 at [facility] CR BARD : PERIPHERAL VASCULAR [id number] 07/08/2025 [id number] / / [id number] Cath Dual 6fr Line Pwr [id number] - [id number] Implanted:Qty: 1 on 07/20/2022 at [facility] CR BARD : PERIPHERAL VASCULAR [id number] 07/08/2025 [id number] / / [id number] Duraclip 11mm Repositionable - [id number] Implanted:Qty: 1 on 01/24/2023 by Surendra Kemp DO at OR [facility] [employer] OLEG [id number] / / Duraclip 11mm Repositionable - [id number] Implanted:Qty: 1 on 01/24/2023 by Surendra Kemp DO at OR [facility] CONMED OLEG [id number] / / documented as of this encounter [...] the patient have Health Care Power of Senior Financial? No Full Code 08/13/2022 2:07 AM 08/28/2022 [...] the patient have Health Care Power of Senior Financial? No Care Teams Plywood And Veneer Repairer Relationship Specialty Start Date End Date Nena Richardson DO [address] [place] [address] PCP - General Cardiovascular Medicine 09/15/23 documented as of this encounter
--- OUTSIDE RECORDS SUMMARY | 2024-02-25 23:42 | External Medical Summary | Summary of Care ---
Author Name Unknown Organization [facility] Address [address] [facility] [address] Phone [phone] Care Team Providers Care Riverboat Master Name Role Phone Nena Richardson Primary Care Provider Reason for Visit * Reason Comments Dosage Adjustment Via Phone (anticoag Cl inic) Encounter Details Date Type Department Care Team (Latest Contact Info) Description 12/30/2023 6:45 AM EDT Anticoagulation Pharmacy Call Center [address] [place] [address] [facility] [address] [place] [address] Atrial fibrillation, unspecified type (HCC)* Allergies Active [...] as of this encounter (statuses as of 12/30/2023) Medications Medication Sig Dispensed Refills Start Date [...] as of this encounter (statuses as of 12/30/2023) Active Problems Problem Noted Date Diagnosed Date [...] as of this encounter (statuses as of 12/30/2023) Resolved Problems Problem Noted Date Diagnosed Date [...] as of this encounter (statuses as of 12/30/2023) Immunizations Name Administration Dates Next Due Pneumococcal [...] this encounter Progress Notes * Love Kulkarni, formerly [facility] - 12/30/2023 12:11 PM EDT [facility] [phone] Spoke to [facility] and confirmed pt remains admitted. [facility] will follow up for d/c plans. Love Kulkarni Rph, Pharm.D. Clinical Pharmacist Centralized Clinical Pharmacy Services (CCPS) (formerly Telepharmacy) [phone] 12/30/2023,12:11 PM documented in this encounter Plan of Treatment Upcoming Encounters Date Type Department Care Team (Late st Contact Info) Description 12/31/2023 6:45 AM EDT Anticoagulation Pharmacy Call Center [address] [facility] [place] [address] [facility], [facility] [address] [place] [address] Health Maintenance Due Date Last Done Comments [...] this encounter Medical Devices Implanted Type Area Dryer And Washer Mechanic Device Identifier Shelf Expiration Date Model / Serial / Lot Acetabular Clusterhole Shell48 - [id number] Implanted:Qty: 1 on 05/08/2022 by Nicolás Han MD at OR [facility] Left: Hip JORDYN : ORTHOPAEDICS 08/23/2023 702-04-48D / / [id number] Hip Hd Nk Alumina Mod D 36/ 5 - [id number] Implanted:Qty: 1 on 05/08/2022 by Nicolás Han MD at [facility] Left: Hip JORDYN : ORTHOPAEDICS 01/29/2025 6570-0-036 / / [id number] Implant Stem Hip Colr Std 4 - [id number] Implanted:Qty: 1 on 05/08/2022 by Nicolás Han MD at OR [facility] Left: Hip JORDYN : ORTHOPAEDICS 03/06/2027 0445-5431 / / [id number] Trident Acetabular X3 0 36 D - [id number] Implanted:Qty: 1 on 05/08/2022 by Nicolás Han MD at OR [facility] Left: Hip JORDYN : ORTHOPAEDICS 723-00-36D / / [id number] Cath Cv Lumen Single 5fr - [id number] Implanted:Qty: 1 on 07/20/2022 at [facility] CR BARD : PERIPHERAL VASCULAR [id number] 07/08/2025 [id number] / / [id number] Cath Dual 6fr Line Pwr [id number] - [id number] Implanted:Qty: 1 on 07/20/2022 at [facility] CR BARD : PERIPHERAL VASCULAR [id number] 07/08/2025 [id number] / / [id number] Duraclip 11mm Repositionable - [id number] Implanted:Qty: 1 on 01/24/2023 by Surendra Kemp, DO at OR [facility] ReadWorksMED OLEG [id number] / / Duraclip 11mm Repositionable - [id number] Implanted:Qty: 1 on 01/24/2023 by Surendra Kemp, DO at OR [facility] ReadWorks[employer] OLEG [id number] / / documented as of this encounter [...] the patient have Health Care Power of Hardening Machine Operator Helper? No Care Teams Riverboat Master Relationship Specialty Start Date End Date Nena Richardson DO [address] [place] [address] PCP - General Cardiovascular Medicine 09/15/23 documented as of this encounter
--- OUTSIDE RECORDS SUMMARY | 2024-02-25 23:42 | External Medical Summary | Summary of Care ---
Author Name Unknown Organization [facility] Address [address] [facility] [place] [address] Phone [phone] Care Team Providers Care Slots Manager Name Role Phone Nena Richardson Primary Care Provider Reason for Visit * Reason Comments Dosage Adjustment Via Phone (anticoag Cl inic) Encounter Details Date Type Department Care Team (Latest Contact Info) Description 12/28/2023 6:45 AM EDT Anticoagulation Pharmacy Call Center [address] [place] [address] [facility] [address] [place] [address] Atrial fibrillation, unspecified type (HCC)* Allergies Active [...] as of this encounter (statuses as of 12/28/2023) Medications Medication Sig Dispensed Refills Start Date [...] as of this encounter (statuses as of 12/28/2023) Active Problems Problem Noted Date Diagnosed Date [...] as of this encounter (statuses as of 12/28/2023) Resolved Problems Problem Noted Date Diagnosed Date [...] as of this encounter (statuses as of 12/28/2023) Immunizations Name Administration Dates Next Due Pneumococcal [...] * Love Kulkarni, [facility] - 12/28/2023 2:25 PM EDT [facility] [phone] Spoke to [facility] and confirmed pt remains admitted. [facility] will follow up for d/c plans. Love Kulkarni Rph, Pharm.D. Clinical Pharmacist Centralized Clinical Pharmacy Services (CCPS) (formerly Telepharmacy) [phone] 12/28/2023,2:27 PM documented in this encounter Plan of [...] this encounter Medical Devices Implanted Type Area Furniture Cleaner Device Identifier Shelf Expiration Date Model / Serial / Lot Acetabular Clusterhole Shell48 - [id number] Implanted:Qty: 1 on 05/08/2022 by Nicolás Han MD at [facility] Left: Hip JORDYN : ORTHOPAEDICS 08/23/2023 702-04-48D / / [id number] Hip Hd Nk Alumina Mod D 36/ 5 - [id number] Implanted:Qty: 1 on 05/08/2022 by Nicolás Han MD at [facility] Left: Hip JORDYN : ORTHOPAEDICS 01/29/2025 6570-0-036 / / [id number] Implant Stem Hip Colr Std 4 - [id number] Implanted:Qty: 1 on 05/08/2022 by Nicolás Han MD at [facility] Left: Hip JORDYN : ORTHOPAEDICS 03/06/2027 7318-9262 / / [id number] Trident Acetabular X3 0 36 D - [id number] Implanted:Qty: 1 on 05/08/2022 by Nicolás Han MD at [facility] Left: Hip JORDYN : ORTHOPAEDICS 723-00-36D / / [id number] Cath Cv Lumen Single 5fr - [id number] Implanted:Qty: 1 on 07/20/2022 at [facility] CR BARD : PERIPHERAL VASCULAR [id number] 07/08/2025 2726075 / / [id number] Cath Dual 6fr Line Pwr [id number] - [id number] Implanted:Qty: 1 on 07/20/2022 at [facility] CR BARD : PERIPHERAL VASCULAR [id number] 07/08/2025 3880652 / / [id number] Duraclip 11mm Repositionable - [id number] Implanted:Qty: 1 on 01/24/2023 by Surendra Kemp DO at OR [facility] Geelbe [id number] / / Duraclip 11mm Repositionable - [id number] Implanted:Qty: 1 on 01/24/2023 by Surendra Kemp DO at OR [facility] Geelbe [id number] / / documented as of this encounter [...] the patient have Health Care Power of Insurance Verification Specialist? No Care Teams Slots Manager Relationship Specialty Start Date End Date Nena Richardson DO [address] [place] [address] PCP - General Cardiovascular Medicine 09/15/23 documented as of this encounter
--- OUTSIDE RECORDS SUMMARY | 2024-02-25 23:42 | External Medical Summary | Summary of Care ---
Author Name Unknown Organization [facility] Address [address] [facility] [address] Phone [phone] Care Team Providers Care Pipe Organ Technician Name Role Phone Nena Richardson Primary Care Provider Reason for Visit * Reason Comments Dosage Adjustment Via Phone (anticoag Cl inic) Encounter Details Date Type Department Care Team (Latest Contact Info) Description 12/15/2023 6:15 PM EDT Anticoagulation Pharmacy Call Center [address] [place] [address] [facility] [address] [place] [address] Longstanding persistent atrial fibrillation (HCC)* Allergies Active [...] as of this encounter Progress Notes * IsidroLa PHARM Tech - 12/15/2023 2:08 PM EDT Contacts Type Contact Phone/Fax 12/15/2023 01:19 PM EDT Phone (Incoming) Dilma Hogan (Self) [phone] (M) 12/15/2023 02:04 PM EDT Phone (Outgoing) Dilma Hogan (Self) [phone] (M) Left Message Subjective Advised patient to contact Anticoagulation Clinic if any unusual bruising or bleeding, recent illness, changes in medication, or questions/concerns. PT/INR results, Coumadin dose instructions, and next PT/INR date communicated as noted by Pharmacist: Yes FAIZA BLISS 12/15/2023, 2:08 PM * Love Kulkarni RPh - 12/15/2023 2:01 PM EDT Images from the original note were not included. Coumadin Clinic (region specific) Objective Current Warfarin Dose As of 12/15/2023 Warfarin maintenance plan: 2 mg (1 mg x 2) every Fri; 4 mg (1 mg x 4) all other days INR Result As of 12/15/2023 INR goal: 2.5-3.5 INR used for dosin.7 (12/14/2023) Assessment & Plan Warfarin Plan As of 12/15/2023 Full warfarin instructions: 2 mg every Wed, Wed; 4 mg all other days Next INR check: 12/24/2023 Repeat PT/INR in 1.5 week(s) Weekly dose: decreased Additional Dosing Information: Description Home machine - weekly checks 09/24/23 - pt in the process of establishing with pcp/cardio in [facility] to contact patient with dose instructions as noted. Love Kulkarni RPh 12/15/2023, 2:01 PM * Ingrid Chappell PHARM Tech - 12/15/2023 1:19 PM EDT Caller's name: Dilma Preferred call back number(OFFICE NUMBER FOR ): [phone] Reason for call: Pt called to let the [facility] know she everardo to [facility] yesterday, 12/14/23 for her inr. I called [facility] and they will be faxing over the results. Inr=3.7 Thank you, Ingrid Chappell Efficiency Engineer Centralized Clinical Pharmacy Services 12/15/2023,1:19 PM documented in this encounter Plan of [...] this encounter Medical Devices Implanted Type Area Athletic Shoe Designer Device Identifier Shelf Expiration Date Model / Serial / Lot Acetabular Clusterhole Shell48 - [id number] Implanted:Qty: 1 on 05/08/2022 by Nicolás Han MD at [facility] Left: Hip JORDYN : ORTHOPAEDICS 08/23/2023 702-04-48D / / [id number] Hip Hd Nk Alumina Mod D 36/ 5 - [id number] Implanted:Qty: 1 on 05/08/2022 by Nicolás Han MD at [facility] Left: Hip JORDYN : ORTHOPAEDICS 01/29/2025 6570-0-036 / / [id number] Implant Stem Hip Colr Std 4 - [id number] Implanted:Qty: 1 on 05/08/2022 by Nicolás Han MD at [facility] Left: Hip JORDYN : ORTHOPAEDICS 03/06/2027 7941-7048 / / [id number] Trident Acetabular X3 0 36 D - [id number] Implanted:Qty: 1 on 05/08/2022 by Nicolás Han MD at OR [facility] Left: Hip JORDYN : ORTHOPAEDICS 723-00-36D / / [id number] Cath Cv Lumen Single 5fr - [id number] Implanted:Qty: 1 on 07/20/2022 at [facility] CR BARD : PERIPHERAL VASCULAR [id number] 07/08/2025 5516511 / / [id number] Cath Dual 6fr Line Pwr [id number] - [id number] Implanted:Qty: 1 on 07/20/2022 at [facility] CR BARD : PERIPHERAL VASCULAR [id number] 07/08/2025 9570151 / / [id number] Duraclip 11mm Repositionable - [id number] Implanted:Qty: 1 on 01/24/2023 by Surendra Kemp DO at OR [facility] CONMED OLEG [id number] / / Duraclip 11mm Repositionable - [id number] Implanted:Qty: 1 on 01/24/2023 by Surendra Kemp DO at OR [facility] CONMED OLEG [id number] / / documented as of this encounter Procedures Procedure Name Priority Date/Time Associated Diagnosis Comments OUTSIDE LAB-PT/INR Routine 12/14/2023 documented in this encounter Results * OUTSIDE LAB-PT/INR (12/14/2023) INR-OUTSIDE LAB 3.7 History Per Patient LABORATORY documented in this [...] the patient have Health Care Power of Lead Former? No Full Code 08/13/2022 2:07 AM 08/28/2022 [...] the patient have Health Care Power of Lead Former? No Care Teams Pipe Organ Technician Relationship Specialty Start Date End Date Nena Richardson DO [address] [place] [address] PCP - General Cardiovascular Medicine 09/15/23 documented as of this encounter
--- OUTSIDE RECORDS SUMMARY | 2024-02-25 23:42 | External Medical Summary | Summary of Care ---
Author Name Unknown Organization [facility] Address [address] [place] [address] Phone [phone] Care Team Providers Care Plow And Boring Machine Tender Name Role Phone Nena Richardson Primary Care Provider Reason for Visit * Reason Comments Dosage Adjustment Via Phone (anticoag Cl inic) Encounter Details Date Type Department Care Team (Latest Contact Info) Description 12/31/2023 6:45 AM EDT Anticoagulation Pharmacy Call Center [address] [place] [address] [facility] [address] [place] [address] Atrial fibrillation, unspecified type (HCC)* Allergies Active [...] as of this encounter (statuses as of 12/31/2023) Medications Medication Sig Dispensed Refills Start Date [...] as of this encounter (statuses as of 12/31/2023) Active Problems Problem Noted Date Diagnosed Date [...] as of this encounter (statuses as of 12/31/2023) Resolved Problems Problem Noted Date Diagnosed Date [...] as of this encounter (statuses as of 12/31/2023) Immunizations Name Administration Dates Next Due Pneumococcal [...] Progress Notes * Love Kulkarni, [facility] - 12/31/2023 3:52 PM EDT Images from the original note were not included. [facility] [phone] Spoke to [facility] and confirmed pt remains admitted. [facility] will follow up for d/c plans. . Love Kulkarni Rph, Pharm.D. Clinical Pharmacist Centralized Clinical Pharmacy Services (CCPS) (formerly Telepharmacy) [phone] 12/31/2023,3:54 PM documented in this encounter Plan of Treatment Upcoming Encounters Date Type Department Care Team (Late st Contact Info) Description 01/04/2024 6:45 AM EDT Anticoagulation Pharmacy Call Center [address] [place] [address] [facility], [facility] [address] [place] [address] Health Maintenance Due Date Last Done Comments [...] this encounter Medical Devices Implanted Type Area Obstetrics Gyn Device Identifier Shelf Expiration Date Model / Serial / Lot Acetabular Clusterhole Shell48 - [id number] Implanted:Qty: 1 on 05/08/2022 by Nicolás Han MD at OR [facility] Left: Hip JORDYN : ORTHOPAEDICS 08/23/2023 702-04-48D / / [id number] Hip Hd Nk Alumina Mod D 36/ 5 - [id number] Implanted:Qty: 1 on 05/08/2022 by Nicolás Han MD at OR [facility] Left: Hip JORDYN : ORTHOPAEDICS 01/29/2025 6570-0-036 / / [id number] Implant Stem Hip Colr Std 4 - [id number] Implanted:Qty: 1 on 05/08/2022 by Nicolás Han MD at OR [facility] Left: Hip JORDYN : ORTHOPAEDICS 03/06/2027 2130-6575 / / [id number] Trident Acetabular X3 0 36 D - [id number] Implanted:Qty: 1 on 05/08/2022 by Nicolás Han MD at OR [facility] Left: Hip JORDYN : ORTHOPAEDICS 723-00-36D / / [id number] Cath Cv Lumen Single 5fr - [id number] Implanted:Qty: 1 on 07/20/2022 at [facility] CR BARD : PERIPHERAL VASCULAR [id number] 07/08/2025 1489046 / / [id number] Cath Dual 6fr Line Pwr [id number] - [id number] Implanted:Qty: 1 on 07/20/2022 at [facility] CR BARD : PERIPHERAL VASCULAR [id number] 07/08/2025 3532021 / / [id number] Duraclip 11mm Repositionable - [id number] Implanted:Qty: 1 on 01/24/2023 by Surendra Kemp DO at OR [facility] [place] [employer] OLEG [id number] / / Duraclip 11mm Repositionable - [id number] Implanted:Qty: 1 on 01/24/2023 by Surendra Kemp, at OR [facility] [place] [place] CONMED OLEG [id number] / / documented as of this encounter [...] patient have Health Care Power of Watch Manufacturing Supervisor? No Care Teams Plow And Boring Machine Tender Relationship Specialty Start Date End Date Nena Richardson DO [address] [place] [address] PCP - General Cardiovascular Medicine 09/15/23 documented as of this encounter
--- OUTSIDE RECORDS SUMMARY | 2024-02-25 23:42 | External Medical Summary | Summary of Care ---
Author Name Unknown Organization [facility] Address [address] [place] [address] Phone [phone] Care Team Providers Care Clerk Specialist Name Role Phone Nena Richardson Primary Care Provider Encounter Details Date Type Department Care Team ([facility] Contact Info) Description 12/04/2023 Telephone Pharmacy [facility] [address] [place] [address] [facility] [address] [place] [address] Allergies Active Allergy Reactions Criticality [...] Notes * Telephone Encounter - Claudia Pereyra [facility] - 12/06/2023 9:47 AM EDT Noted. [facility] will follow up with next INR on 12/07. Thank You Claudia Pereyra PharmD Clinical Pharmacist Centralized Clinical Pharmacy Services (CCPS) (formerly [employer]) [phone] / [phone] 12/06/2023, 9:48 AM * Telephone Encounter - [...] RPh - 12/04/2023 2:29 PM EDT Received diamond blender VM from patient noting concerns of elevated [...] AM EDT Anticoagulation Pharmacy Call Center [address] [facility] [place] [address] [facility] [address] [facility] [place] [address] Health Maintenance Due Date Last Done Comments [...] this encounter Medical Devices Implanted Type Area Stretcher Drier Operator Device Identifier Shelf Expiration Date Model / Serial / Lot Acetabular Clusterhole Shell48 - [id number] Implanted:Qty: 1 on 05/08/2022 by Nicolás Han MD at [facility] Left: Hip JORDYN : ORTHOPAEDICS 08/23/2023 702-04-48D / / [id number] Hip Hd Nk Alumina Mod D 36/ 5 - [id number] Implanted:Qty: 1 on 05/08/2022 by Nicolás Han MD at [facility] Left: Hip JORDYN : ORTHOPAEDICS 01/29/2025 6570-0-036 / / [id number] Implant Stem Hip Colr Std 4 - [id number] Implanted:Qty: 1 on 05/08/2022 by Nicolás Han MD at [facility] Left: Hip JORDYN : ORTHOPAEDICS 03/06/2027 6022-3048 / / [id number] Trident Acetabular X3 0 36 D - [id number] Implanted:Qty: 1 on 05/08/2022 by Nicolás Han MD at [facility] Left: Hip JORDYN : ORTHOPAEDICS 723-00-36D / / [id number] Cath Cv Lumen Single 5fr - [id number] Implanted:Qty: 1 on 07/20/2022 at [facility] CR BARD : PERIPHERAL VASCULAR [id number] 07/08/2025 0640316 / / [id number] Cath Dual 6fr Line Pwr [id number] - [id number] Implanted:Qty: 1 on 07/20/2022 at [facility] CR BARD : PERIPHERAL VASCULAR [id number] 07/08/2025 6198965 / / [id number] Duraclip 11mm Repositionable - [id number] Implanted:Qty: 1 on 01/24/2023 by Surendra Kemp DO at OR [facility] [employer] OLEG [id number] / / Duraclip 11mm Repositionable - [id number] Implanted:Qty: 1 on 01/24/2023 by Surendra Kemp DO at OR [facility] CONMED OLEG [id number] / / documented as of this encounter [...] the patient have Health Care Power of Flyer Repairer? No Full Code 08/13/2022 2:07 AM 08/28/2022 [...] the patient have Health Care Power of Flyer Repairer? No Care Teams Clerk Specialist Relationship Specialty Start Date End Date Nena Richardson DO [address] [place] [address] PCP - General Cardiovascular Medicine 09/15/23 documented as of this encounter
--- OUTSIDE RECORDS SUMMARY | 2024-02-25 23:43 | External Medical Summary | Summary of Care ---
Author Name Unknown Organization [facility] Address [address] [address] Phone [phone] Care Team Providers Care Lumber Inspector Name Role Phone Nena Richardson Primary Care Provider Reason for Visit * Reason Comments Dosage Adjustment Via Phone (anticoag Cl inic) Encounter Details Date Type Department Care Team (Latest Contact Info) Description 11/10/2023 6:15 PM EDT Anticoagulation Pharmacy Call Center [address] [place] [place] [address] [facility] [address] [place] [place] [address] Persistent atrial fibrillation (HCC)* Allergies Active Allergy Reactions [...] as of this encounter (statuses as of 11/10/2023) Medications Medication Sig Dispensed Refills Start Date [...] as of this encounter (statuses as of 11/10/2023) Active Problems Problem Noted Date Diagnosed Date [...] as of this encounter (statuses as of 11/10/2023) Resolved Problems Problem Noted Date Diagnosed Date [...] as of this encounter (statuses as of 11/10/2023) Immunizations Name Administration Dates Next Due Pneumococcal [...] Love Kulkarni, [facility] - 11/10/2023 4:15 PM EDT Noted continue as planned Love Kulkarni Rph, Pharm.D. Clinical Pharmacist Centralized Clinical Pharmacy Services (CCPS) (formerly Telepharmacy) [phone] 11/10/2023,4:15 PM * Mackenzie Gonzales PHARM Tech - 11/10/2023 3:33 PM EDT Contacts Type Contact Phone/Fax 11/10/2023 07:56 AM EDT Fax (Incoming) 11/10/2023 03:30 PM EDT Phone (Outgoing) Edison Dilma L (Self) [phone] (M) Spoke to Patient Subjective Patient Findings Negatives: Signs/symptoms of bleeding, Change in health, Change in activity, Upcoming invasive procedure, Missed doses, Extra doses, Change in medications, Change in diet/appetite, Bruising Comments: Pt stated she has been taking 2mg daily. Pt also stated she has a blood transfusion, in the near future, however she does not have an appt with hem until 11/29. Advised patient to contact Anticoagulation Clinic if any unusual bruising or bleeding, recent illness, changes in medication, or questions/concerns. PT/INR results, Coumadin dose instructions, and next PT/INR date communicated as noted by Pharmacist: FAIZA Harper 11/10/2023, 3:33 PM * Love Kulkarni RPh - 11/10/2023 3:24 PM EDT Images from the original note were not included. Coumadin Clinic (region specific) Objective Current Warfarin Dose As of 11/10/2023 Warfarin maintenance plan: 2 mg (1 mg x 2) every day INR Result As of 11/10/2023 INR goal: 2.5-3.5 INR used for dosin.1 (11/10/2023) Assessment & Plan Warfarin Plan As of 11/10/2023 Full warfarin instructions: 11/09: 4 mg; Otherwise 2 mg every day Next INR check: 11/17/2023 Please confirm if pt has been taking 2mg or 4mg daily. [facility] left to confirm previously. Repeat PT/INR in 1 week(s) Weekly dose: not changed Additional Dosing Information: Description Home machine - weekly checks 09/24/23 - pt in the process of establishing with pcp/cardio in [facility] to contact patient with dose instructions as noted. Love Kulkarni RPh 11/10/2023, 3:24 PM * Victoria Park CPhT - 11/10/2023 7:56 AM EDT Patient Phone Numbers Received fax from [facility] for today's results of INR= 2.1 Thank you, Victoria Park CPhT Combination Presser II Centralized Clinical Pharmacy Services (CCPS) (formerly telepharmacy) 11/10/2023,7:56 AM documented in this encounter Plan of Treatment Upcoming Encounters Date Type Department Care Team (Late st Contact Info) Description 11/18/2023 6:30 AM EDT Anticoagulation Pharmacy Call Center [address] [place] [address] [facility] [address] [place] [address] Health Maintenance Due Date Last Done Comments [...] (1 of 2) 2011 Depression, Most Recent Scor e >= 10 (will fire each visit until score < 10) 11/16/2015 11/15/2015 COVID-19 Vaccine (4 - 2022-2 4 season) 2023 05/28/2021, 11/12/2020, 10/22/2020 Influenza Vaccine (FLU shot) (Season Ended) 2024 05/25/2022, 06/17/2021, 06/17/2021 Cologuard 04/24/2025 04/24/2022, 04/21/2022 Colorectal Cancer Screening 04/24/2025 Lipid Panel 09/10/2026 09/10/2021 GARDASIL-HPV IMMUNIZATION SERIES Aged Out No longer eligible b ased on patient's age to complete this topic Hepatitis B Aged Out No longer eligi ble based on patient's age to complete this topic MENINGOCOCCAL (MENACTRA/MENVEO) Aged Out No longer eligible b ased on patient's age to complete this topic documented as of this encounter Medical Devices Implanted Type Area Engine Manager Device Identifier Shelf Expiration Date Model / Serial / Lot Acetabular Clusterhole Shell48 - [id number] Implanted:Qty: 1 on 05/08/2022 by Nicolás Han MD at [facility] Left: Hip JORDYN : ORTHOPAEDICS 08/23/2023 702-04-48D / / [id number] Hip Hd Nk Alumina Mod D 36/ 5 - [id number] Implanted:Qty: 1 on 05/08/2022 by Nicolás Han MD at [facility] Left: Hip JORDYN : ORTHOPAEDICS 01/29/2025 6570-0-036 / / [id number] Implant Stem Hip Colr Std 4 - [id number] Implanted:Qty: 1 on 05/08/2022 by Nicolás Han MD at [facility] Left: Hip JORDYN : ORTHOPAEDICS 03/06/2027 0480-0735 / / [id number] Trident Acetabular X3 0 36 D - [id number] Implanted:Qty: 1 on 05/08/2022 by Nicolás Han MD at [facility] Left: Hip JORDYN : ORTHOPAEDICS 723-00-36D / / [id number] Cath Cv Lumen Single 5fr - [id number] Implanted:Qty: 1 on 07/20/2022 at [facility] CR BARD : PERIPHERAL VASCULAR [id number] 07/08/2025 [id number] / / [id number] Cath Dual 6fr Line Pwr [id number] - [id number] Implanted:Qty: 1 on 07/20/2022 at [facility] CR BARD : PERIPHERAL VASCULAR [id number] 07/08/2025 [id number] / / [id number] Duraclip 11mm Repositionable - [id number] Implanted:Qty: 1 on 01/24/2023 by Surendra Kemp, DO at [facility] CONMED OLEG [id number] / / Duraclip 11mm Repositionable - [id number] Implanted:Qty: 1 on 01/24/2023 by Surendra Kemp, DO at [facility] CONMED OLEG [id number] / / documented as of this encounter Procedures Procedure Name Priority Date/Time Associated Diagnosis Comments OUTSIDE LAB-PT/INR Routine 11/10/2023 documented in this encounter Results * OUTSIDE LAB-PT/INR (11/10/2023) INR-OUTSIDE LAB 2.1 11/10/2023 History Per Patient LABORATORY documented in this encounter Visit Diagnoses Diagnosis Persistent atrial fibrillation (HCC)- Primary Atrial fibrillation documented in this encounter Advance Directives Latest [...] the patient have Health Care Power of Process Architect? No Full Code 08/13/2022 2:07 AM 08/28/2022 [...] the patient have Health Care Power of Process Architect? No Care Teams Lumber Inspector Relationship Specialty Start Date End Date Nena Richardson DO [address] [place] [address] PCP - General Cardiovascular Medicine 09/15/23 documented as of this encounter
--- OUTSIDE RECORDS SUMMARY | 2024-02-25 23:43 | External Medical Summary | Summary of Care ---
Author Name Unknown Organization [facility] Address [address] [address] Phone [phone] Care Team Providers Care Brass Molder Name Role Phone Nena Richardson Primary Care Provider Reason for Visit * Reason Comments Dosage Adjustment Via Phone (anticoag Cl inic) Encounter Details Date Type Department Care Team (Latest Contact Info) Description 11/08/2023 6:30 AM EDT Anticoagulation Pharmacy Call Center [address] [place] [address] [facility] [address] [place] [address] Persistent atrial fibrillation (HCC)* Allergies Active Allergy [...] as of this encounter (statuses as of 11/08/2023) Medications Medication Sig Dispensed Refills Start Date [...] as of this encounter (statuses as of 11/08/2023) Active Problems Problem Noted Date Diagnosed Date [...] as of this encounter (statuses as of 11/08/2023) Resolved Problems Problem Noted Date Diagnosed Date [...] as of this encounter (statuses as of 11/08/2023) Immunizations Name Administration Dates Next Due Pneumococcal [...] Progress Notes * Love Kulkarni, [facility] - 11/08/2023 2:18 PM EDT Medication Therapy Disease Management - Anticoagulation Patient: Dilma Hogan | : 1960 Subjective Contacts Type Contact Phone/Fax 11/05/2023 09:15 AM EDT Fax (Incoming) Dilma Hogan (Self) 11/08/2023 02:20 PM EDT Phone (Outgoing) Dilma Hogan (Self) [phone] (M) Left Message Patient-Reported Symptoms: Patient Findings Comments: Pt advised to take 4mg daily at recent d/c from [facility]. Will confirm at next visit what dose pt has been taking. Objective Current Warfarin Dose As of 11/08/2023 Warfarin maintenance plan: 2 mg (1 mg x 2) every day INR Result As of 11/08/2023 INR goal: 2.5-3.5 INR used for dosin.9 (11/05/2023) Assessment & Plan Warfarin Plan As of 11/08/2023 Full warfarin instructions: 2 mg every day No change documented: Love Kulkarni kalpesh Next INR check: 11/10/2023 Repeat PT/INR in 2 days(s) Weekly dose: not changed Additional Dosing Information: Description Home machine - weekly checks 09/24/23 - pt in the process of establishing with pcp/cardio in [facility] Love Kulkarni RPh Clinical Pharmacist 11/08/2023, 2:21 PM * Ingrid Chappell social insurance administrator - 11/05/2023 9:15 AM EDT Received Fax from [facility] with pts INR results from 11/05/23. INR=2.9 Thank you, Ingrid Chappell Price Analyst Centralized Clinical Pharmacy Services 11/05/2023,9:15 AM documented in this encounter Plan of [...] this encounter Medical Devices Implanted Type Area Curriculum And Instruction Director Device Identifier Shelf Expiration Date Model / Serial / Lot Acetabular Clusterhole Shell48 - [id number] Implanted:Qty: 1 on 05/08/2022 by Nicolás Han MD at [facility] Left: Hip JORDYN : ORTHOPAEDICS 08/23/2023 702-04-48D / / [id number] Hip Hd Nk Alumina Mod D 36/ 5 - [id number] Implanted:Qty: 1 on 05/08/2022 by Nicolás Han MD at [facility] Left: Hip JORDYN : ORTHOPAEDICS 01/29/2025 6570-0-036 / / [id number] Implant Stem Hip Colr Std 4 - [id number] Implanted:Qty: 1 on 05/08/2022 by Nicolás Han MD at [facility] Left: Hip JORDYN : ORTHOPAEDICS 03/06/2027 8546-9122 / / [id number] Trident Acetabular X3 0 36 D - [id number] Implanted:Qty: 1 on 05/08/2022 by Nicolás Han MD at [facility] Left: Hip JORDYN : ORTHOPAEDICS 723-00-36D / / [id number] Cath Cv Lumen Single 5fr - [id number] Implanted:Qty: 1 on 07/20/2022 at [facility] CR BARD : PERIPHERAL VASCULAR [id number] 07/08/2025 [id number] / / [id number] Cath Dual 6fr Line Pwr [id number] - [id number] Implanted:Qty: 1 on 07/20/2022 at [facility] CR BARD : PERIPHERAL VASCULAR [id number] 07/08/2025 [id number] / / [id number] Duraclip 11mm Repositionable - [id number] Implanted:Qty: 1 on 01/24/2023 by Surendra Kemp DO at [facility] CONMED OLEG [id number] / / Duraclip 11mm Repositionable - [id number] Implanted:Qty: 1 on 01/24/2023 by Surendra Kemp DO at [facility] CONMED OLEG [id number] / / documented as of this encounter Procedures Procedure Name Priority Date/Time Associated Diagnosis Comments OUTSIDE LAB-PT/INR Routine 11/05/2023 documented in this encounter Results * OUTSIDE LAB-PT/INR (11/05/2023) INR-OUTSIDE LAB 2.9 History Per Patient LABORATORY documented in this [...] the patient have Health Care Power of Medical Technologist Blood Bank? No Full Code 08/13/2022 2:07 AM 08/28/2022 [...] the patient have Health Care Power of Medical Technologist Blood Bank? No Care Teams Brass Molder Relationship Specialty Start Date End Date Nena Richardson DO [address] [place] [address] PCP - General Cardiovascular Medicine 09/15/23 documented as of this encounter"
--- OUTSIDE RECORDS SUMMARY | 2024-02-25 23:43 | External Medical Summary | Summary of Care ---
Author Name Unknown Organization [facility] Address [address] [address] Phone [phone] Care Team Providers Care Custom Harvester Name Role Phone Nena Richardson Primary Care Provider Encounter Details Date Type Department Care Team (Late st Contact Info) Description 11/08/2023 Telephone Pharmacy, [facility] [address] [place] [address] [address] Ccps, [facility] [address] [facility] [address] [place] [address] Allergies Active Allergy Reactions Criticality Noted Date [...] Degenerative joint disease (DJD) of hip 05/08/20 22 Osteonecrosis of left hip 02/17/2022 Osteonecrosis of [...] encounter Miscellaneous Notes * Telephone Encounter - [facility] located [facility] - 11/08/2023 3:33 PM EDT Noted. Thanks, Aneudy Becker Rp, Pharm D. Clinical Pharmacist Centralized Clinical Pharmacy Services (Formerly Telepharmacy)/[facility] [phone] 11/08/2023,3:33 PM * Telephone Encounter - Tonya Garnett ship pilot dispatcher - 11/08/2023 2:37 PM EDT Patient calling again, was not aware we had left a voicemail, went over dosing with patient, she repeated it back correctly, no problems with bleeding/bruising, no missed/extra doses, patient states she does not need a call back from the pharmacist, thank you. Tonya Garnett CPhT, [place] Tooth Clerk II Centralized Clincal Pharmacy Services (CCPS) (formerly Telepharmacy) * Telephone Encounter - Farhat Harris ship pilot dispatcher - 11/08/2023 2:31 PM EDT Caller's name: Dilma Preferred call back number(OFFICE NUMBER FOR ): [phone] Reason for call: Questions about Coumadin/ Lovenox dosing: Pt calling for dose dirs Thank you, Farhat Harris CPhT Associate Professor Of Surgery [facility] 11/08/2023,2:31 PM documented in this encounter Plan of Treatment Upcoming Encounters Date Type Department Care Team (Late st Contact Info) Description 11/10/2023 6:15 PM EDT Anticoagulation Pharmacy Call Center [address] [place] [address] Ccp, [facility] [address] [facility] [address] [place] [address] Health Maintenance Due Date Last Done Comments [...] this encounter Medical Devices Implanted Type Area Strategic Solutions Consultant Device Identifier Shelf Expiration Date Model / Serial / Lot Acetabular Clusterhole Shell48 - [id number] Implanted:Qty: 1 on 05/08/2022 by Nicolás Han MD at [facility] Left: Hip JORDYN : ORTHOPAEDICS 08/23/2023 702-04-48D / / [id number] Hip Hd Nk Alumina Mod D 36/ 5 - [id number] Implanted:Qty: 1 on 05/08/2022 by Nicolás Han MD at [facility] Left: Hip JORDYN : ORTHOPAEDICS 01/29/2025 6570-0-036 / / [id number] Implant Stem Hip Colr Std 4 - [id number] Implanted:Qty: 1 on 05/08/2022 by Nicolás Han MD at [facility] Left: Hip JORDYN : ORTHOPAEDICS 03/06/2027 9931-1917 / / [id number] Trident Acetabular X3 0 36 D - [id number] Implanted:Qty: 1 on 05/08/2022 by Nicolás Han MD at [facility] Left: Hip JORDYN : ORTHOPAEDICS 723-00-36D / / [id number] Cath Cv Lumen Single 5fr - [id number] Implanted:Qty: 1 on 07/20/2022 at [facility] CR BARD : PERIPHERAL VASCULAR [id number] 07/08/2025 [id number] / / [id number] Cath Dual 6fr Line Pwr [id number] - [id number] Implanted:Qty: 1 on 07/20/2022 at [facility] CR BARD : PERIPHERAL VASCULAR [id number] 07/08/2025 [id number] / / [id number] Duraclip 11mm Repositionable - [id number] Implanted:Qty: 1 on 01/24/2023 by Surendra Kemp DO at [facility]MED [facility] [id number] / / Duraclip 11mm Repositionable - [id number] Implanted:Qty: 1 on 01/24/2023 by Surendra Kemp DO at [facility] [facility] [id number] / / documented as of this encounter Advance Directives Latest Code Status [...] the patient have Health Care Power of Retrofit Installer? No Full Code 08/13/2022 2:07 AM 08/28/2022 [...] the patient have Health Care Power of Retrofit Installer? No Care Teams Custom Harvester Relationship Specialty Start Date End Date Nena Richardson DO [address] [place] [address] PCP - General Cardiovascular Medicine 09/15/23 documented as of this encounter
--- OUTSIDE RECORDS SUMMARY | 2024-02-25 23:43 | External Medical Summary | Summary of Care ---
Author Name Unknown Organization [facility] Address [address] [address] Phone [phone] Care Team Providers Care Glass Novelty Maker Name Role Phone Nena Richardson Primary Care Provider Reason for Visit * Reason Onset Date Comments Dosage Adjustment Via Phone (anticoag Clinic) Encounter Details Date Type Department Care Team (Late st Contact Info) Description 11/03/2023 Telephone Pharmacy Call Center [address] [place] [address] Love Kulkarni, [facility] [address] [place] [place] [address] Dosage Adjustment Via Phone (anticoag Clinic) Allergies Active Allergy Reactions Criticality Noted Date [...] as of this encounter (statuses as of 11/03/2023) Medications Medication Sig Dispensed Refills Start Date [...] as of this encounter (statuses as of 11/03/2023) Active Problems Problem Noted Date Diagnosed Date [...] as of this encounter (statuses as of 11/03/2023) Resolved Problems Problem Noted Date Diagnosed Date [...] as of this encounter (statuses as of 11/03/2023) Immunizations Name Administration Dates Next Due Pneumococcal [...] encounter Miscellaneous Notes * Telephone Encounter - Ebony Anderson PHARM Tech - 11/03/2023 9:16 AM EDT Sent phone call to arph * Telephone Encounter - Love Kulkarni RPh - 11/03/2023 9:16 AM EDT Spoke with patient today. Pt took dose yesterday morning. Advised to hold today, 2mg on 11/03 and repeat INR on 11/04. Pt states she has been taking 4mg daily since hosp d/c on 10/28. Love Kulkarni Rph, Pharm.D. Clinical Pharmacist Centralized Clinical Pharmacy Services (CCPS) (formerly Telepharmacy) [phone] 11/03/2023,9:25 AM documented in this encounter Plan of Treatment Upcoming Encounters Date Type Department Care Team (Late st Contact Info) Description 11/10/2023 6:30 AM EDT Anticoagulation Pharmacy Call Center [address] [place] [address] [facility] [address] [place] [address] Health Maintenance Due Date Last Done Comments [...] 11/12/2020, 10/22/2020 Influenza Vaccine (FLU shot) (#1) 2023 05/25/2022, 06/17/2021, 06/17/2021 Cologuard 04/24/2025 04/24/2022, 04/21/2022 [...] this encounter Medical Devices Implanted Type Area Nursing Unit Manager Device Identifier Shelf Expiration Date Model / Serial / Lot Acetabular Clusterhole Shell48 - [id number] Implanted:Qty: 1 on 05/08/2022 by Nicolás Han MD at [facility] Left: Hip JORDYN : ORTHOPAEDICS 08/23/2023 702-04-48D / / [id number] Hip Hd Nk Alumina Mod D 36/ 5 - [id number] Implanted:Qty: 1 on 05/08/2022 by Nicolás Han MD at [facility] Left: Hip JORDYN : ORTHOPAEDICS 01/29/2025 6570-0-036 / / [id number] Implant Stem Hip Colr Std 4 - [id number] Implanted:Qty: 1 on 05/08/2022 by Nicolás Han MD at [facility] Left: Hip JORDYN : ORTHOPAEDICS 03/06/2027 8896-5675 / / [id number] Trident Acetabular X3 0 36 D - [id number] Implanted:Qty: 1 on 05/08/2022 by Nicolás Han MD at [facility] Left: Hip JORDYN : ORTHOPAEDICS 723-00-36D / / [id number] Cath Cv Lumen Single 5fr - [id number] Implanted:Qty: 1 on 07/20/2022 at [facility] CR BARD : PERIPHERAL VASCULAR [id number] 07/08/2025 [id number] / / [id number] Cath Dual 6fr Line Pwr [id number] - [id number] Implanted:Qty: 1 on 07/20/2022 at [facility] CR BARD : PERIPHERAL VASCULAR [id number] 07/08/2025 [id number] / / [id number] Duraclip 11mm Repositionable - [id number] Implanted:Qty: 1 on 01/24/2023 by Surendra Kemp, DO at [facility] [employer]G [id number] / / Duraclip 11mm Repositionable - [id number] Implanted:Qty: 1 on 01/24/2023 by Surendra Kemp, DO at [facility] CONMED OLEG [id number] / / documented as of this encounter [...] the patient have Health Care Power of Gripper Attacher? No Full Code 08/13/2022 2:07 AM 08/28/2022 [...] the patient have Health Care Power of Gripper Attacher? No Care Teams Glass Novelty Maker Relationship Specialty Start Date End Date Nena Richardson DO [address] [place] [address] PCP - General Cardiovascular Medicine 09/15/23 documented as of this encounter
--- OUTSIDE RECORDS SUMMARY | 2024-02-25 23:43 | External Medical Summary | Summary of Care ---
Author Name Unknown Organization [facility] Address [address] [address] Phone [phone] Care Team Providers Care Childcare Administrator Name Role Phone Nena Richardson Primary Care Provider Reason for Visit * Reason Comments Dosage Adjustment Via Phone (anticoag Cl inic) Encounter Details Date Type Department Care Team (Latest Contact Info) Description 11/24/2023 6:15 PM EDT Anticoagulation Pharmacy Call Center [address] [place] [address] [facility] [address] [place] [address] Persistent atrial fibrillation (HCC)* Allergies Active Allergy [...] as of this encounter (statuses as of 11/24/2023) Medications Medication Sig Dispensed Refills Start Date [...] as of this encounter (statuses as of 11/24/2023) Active Problems Problem Noted Date Diagnosed Date [...] as of this encounter (statuses as of 11/24/2023) Resolved Problems Problem Noted Date Diagnosed Date [...] as of this encounter (statuses as of 11/24/2023) Immunizations Name Administration Dates Next Due Pneumococcal [...] Progress Notes * Love Kulkarni, [facility] - 11/24/2023 3:38 PM EDT Images from the original note were not included. Medication Therapy Disease Management - Anticoagulation Patient: Dilma Hogan | : 1960 Subjective Contacts Type Contact Phone/Fax 11/24/2023 08:45 AM EDT Phone (Incoming) Dilma Hogan (Self) [phone] (M) 11/24/2023 03:37 PM EDT Phone (Outgoing) Dilma Hogan (Self) [phone] (M) Left Message Patient-Reported Symptoms: Objective Current Warfarin Dose As of 11/24/2023 Warfarin maintenance plan: 4 mg (1 mg x 4) every day INR Result As of 11/24/2023 INR goal: 2.5-3.5 INR used for dosin.0 (11/24/2023) Assessment & Plan Warfarin Plan As of 11/24/2023 Full warfarin instructions: 11/23: Hold; 11/24: Hold; Otherwise 4 mg every day Next INR check: 11/26/2023 Repeat PT/INR in 2 day(s) Weekly dose: not changed Additional Dosing Information: Description Home machine - weekly checks 09/24/23 - pt in the process of establishing with pcp/cardio in [facility] Love Kulkarni [facility] Clinical Pharmacist 11/24/2023, 3:38 PM * Wendy Junior cinder crusher operator - 11/24/2023 3:23 PM EDT [facility] result in process yet for patient today. Most recent labs were drawn there on 11/17 and it was not a PT/INR. Please advise. Thank you, Wendy Junior Program Checker [facility] ([facility]) 11/24/2023,3:23 PM * Ingrid Chappell cinder crusher operator - 11/24/2023 8:45 AM EDT Caller's name: Dilma Preferred call back number(OFFICE NUMBER FOR ): [phone] Reason for call: Pt calling in her home machine INR results for today 11/24/23 which was 8.0 she is currently going to the lab in [facility] their fax number is [phone], Please fax orders to them. Thank you, Ingrid Chappell Program Checker [facility] 11/24/2023,8:45 AM documented in this encounter Plan of Treatment Scheduled Orders Name Type Priority Associated Diagnoses Orde r Schedule PT INR Lab Routine Persistent atrial fibrillation (HCC) Other, Please specify in Comments field for 26 Occurrences starting 11/24/2023 until 11/23/2024 Health Maintenance Due Date Last Done Comments [...] < 10) 11/16/2015 11/15/2015 COVID-19 Vaccine ( - 2022-2 4 season) 2023 05/28/2021, 11/12/2020, [...] this encounter Medical Devices Implanted Type Area American Indian Policy Specialist Device Identifier Shelf Expiration Date Model / Serial / Lot Acetabular Clusterhole Shell48 - [id number] Implanted:Qty: 1 on 05/08/2022 by Nicolás Han MD at OR [facility] Left: Hip JORDYN : ORTHOPAEDICS 08/23/2023 702-04-48D / / [id number] Hip Hd Nk Alumina Mod D 36/ 5 - [id number] Implanted:Qty: 1 on 05/08/2022 by Nicolás Han MD at OR [facility] Left: Hip JORDYN : ORTHOPAEDICS 01/29/2025 6570-0-036 / / [id number] Implant Stem Hip Colr Std 4 - [id number] Implanted:Qty: 1 on 05/08/2022 by Nicolás Han MD at OR [facility] Left: Hip JORDYN : ORTHOPAEDICS 03/06/2027 9921-2328 / / [id number] Trident Acetabular X3 0 36 D - [id number] Implanted:Qty: 1 on 05/08/2022 by Nicolás Han MD at OR [facility] Left: Hip JORDYN : ORTHOPAEDICS 723-00-36D / / [id number] Cath Cv Lumen Single 5fr - [id number] Implanted:Qty: 1 on 07/20/2022 at [facility] CR BARD : PERIPHERAL VASCULAR [id number] 07/08/2025 [id number] / / [id number] Cath Dual 6fr Line Pwr [id number] - [id number] Implanted:Qty: 1 on 07/20/2022 at [facility] CR BARD : PERIPHERAL VASCULAR [id number] 07/08/2025 [id number] / / [id number] Duraclip 11mm Repositionable - [id number] Implanted:Qty: 1 on 01/24/2023 by Surendra Kemp, DO at OR [employer] [id number] / / Duraclip 11mm Repositionable - [id number] Implanted:Qty: 1 on 01/24/2023 by Surendra Kemp, DO [place] [facility] [employer] [id number] / / documented as of this encounter Procedures Procedure Name Priority Date/Time Associated Diagnosis Comments OUTSIDE LAB-PT/INR Routine 11/24/2023 documented in this encounter Results * OUTSIDE LAB-PT/INR (11/24/2023) INR-OUTSIDE LAB 8.0 History Per Patient LABORATORY documented in this [...] the patient have Health Care Power of Carpentry Foreman? No Full Code 08/13/2022 2:07 AM 08/28/2022 [...] the patient have Health Care Power of Carpentry Foreman? No Care Teams Childcare Administrator Relationship Specialty Start Date End Date Nena Richardson, [address] [place] [id number] PCP - General Cardiovascular Medicine 09/15/23 documented as of this encounter"
--- OUTSIDE RECORDS SUMMARY | 2024-02-25 23:43 | External Medical Summary | Summary of Care ---
Author Name Unknown Organization [facility] Address [address] [facility] [place] [address] Phone [phone] Care Team Providers Care Delivery Driver/Customer Service Name Role Phone Nena Richardson Primary Care Provider Encounter Details Date Type Department Care Team (Late st Contact Info) Description 11/10/2023 Result Scan Unspecified Department Love Kulkarni, [facility] [address] [place] [address] <No scans attached> Allergies Active Allergy Reactions [...] 6:15 PM EDT Anticoagulation Pharmacy Call Center [address] [facility] [place] [address] [facility] [address] [place] [address] Persistent atrial fibrillation (HCC)* Health Maintenance Due Date Last Done Comments [...] this encounter Medical Devices Implanted Type Area Tobacco Stemmer Machine Device Identifier Shelf Expiration Date Model / Serial / Lot Acetabular Clusterhole Shell48 - [id number] Implanted:Qty: 1 on 05/08/2022 by Nicolás Han MD at OR [facility] Left: Hip JORDYN : ORTHOPAEDICS 08/23/2023 702-04-48D / / [id number] Hip Hd Nk Alumina Mod D 36/ 5 - [id number] Implanted:Qty: 1 on 05/08/2022 by Nicolás Han MD at OR [facility] Left: Hip JORDYN : ORTHOPAEDICS 01/29/2025 6570-0-036 / / [id number] Implant Stem Hip Colr Std 4 - [id number] Implanted:Qty: 1 on 05/08/2022 by Nicolás Han MD at [facility] Left: Hip JORDYN : ORTHOPAEDICS 03/06/2027 0146-5780 / / [id number] Trident Acetabular X3 0 36 D - [id number] Implanted:Qty: 1 on 05/08/2022 by Nicolás Han MD at [facility] Left: Hip JORDYN : ORTHOPAEDICS 723-00-36D / / [id number] Cath Cv Lumen Single 5fr - [id number] Implanted:Qty: 1 on 07/20/[address] [facility] CR BARD : PERIPHERAL VASCULAR [id number] 07/08/2025 [id number] / / [id number] Cath Dual 6fr Line Pwr [id number] - [id number] Implanted:Qty: 1 on 07/20/[address] [facility] CR BARD : PERIPHERAL VASCULAR [id number] 07/08/2025 [id number] / / [id number] Duraclip 11mm Repositionable - [id number] Implanted:Qty: 1 on 01/24/2023 by Surendra Kemp DO at [place] [facility] [employer] [id number] / / Duraclip 11mm Repositionable - [id number] Implanted:Qty: 1 on 01/24/2023 by Surendra Kemp DO at OR [facility] [employer] [id number] / / documented as of this encounter Procedures Procedure Name Priority Date/Time Associated Diagnosis Comments OUTSIDE LAB RESULTS 11/10/2023 documented in this encounter Results * OUTSIDE LAB RESULTS (11/10/2023) 11/10/[address] [facility] LABORATORY documented in this encounter Advance Directives [...] the patient have Health Care Power of Food Service Sales Representatives? No Full Code 08/13/2022 2:07 AM 08/28/2022 [...] the patient have Health Care Power of Food Service Sales Representatives? No Care Teams Delivery Driver/Customer Service Relationship Specialty Start Date End Date Nena Richardson DO [address] [place] [address] PCP - General Cardiovascular Medicine 09/15/23 documented as of this encounter
--- OUTSIDE RECORDS SUMMARY | 2024-02-25 23:43 | External Medical Summary | Summary of Care ---
Author Name Unknown Organization [facility] Address [address] [facility] [address] Phone [phone] Care Team Providers Care Butter Production Supervisor Name Role Phone Nena Richardson Primary Care Provider Reason for Visit * Reason Comments Dosage Adjustment Via Phone (anticoag Cl inic) Encounter Details Date Type Department Care Team (Latest Contact Info) Description 11/26/2023 6:15 PM EDT Anticoagulation Pharmacy Call Center [address] [place] [address] [facility] [address] [place] [address] Persistent atrial fibrillation (HCC)* Allergies Active Allergy [...] as of this encounter (statuses as of 11/26/2023) Medications Medication Sig Dispensed Refills Start Date [...] as of this encounter (statuses as of 11/26/2023) Active Problems Problem Noted Date Diagnosed Date [...] as of this encounter (statuses as of 11/26/2023) Resolved Problems Problem Noted Date Diagnosed Date [...] as of this encounter (statuses as of 11/26/2023) Immunizations Name Administration Dates Next Due Pneumococcal [...] encounter Progress Notes * Love Kulkarni, [facility] - 11/26/2023 3:15 PM EDT Noted Love Kulkarni Rph, Pharm.D. Clinical Pharmacist [facility] Services ([facility]PS) (formerly Telepharmacy) [phone] 11/26/2023,3:15 PM * Wendy Junior PHARM Tech - 11/26/2023 2:06 PM EDT Contacts Type Contact Phone/Fax 11/26/2023 01:41 PM EDT Phone (Outgoing) Dilma Hogan (Self) [phone] (M) Spoke to Patient 11/26/2023 02:01 PM EDT Phone (Outgoing) Dilma Hogan (Self) [phone] (M) Spoke to Patient Subjective Patient Findings Positives: Change in medications (Patient reports she started taking Farxiga. Just started medication today), Other complaints (Requesting next INR on 11/29 instead of 11/30 due to work trip. Spoke with Pastora Anguiano who agreed with new date) Negatives: Signs/symptoms of bleeding, Change in health, Change in activity, Upcoming invasive procedure, Missed doses, Extra doses, Change in diet/appetite, Bruising Advised patient to contact Anticoagulation Clinic if any unusual bruising or bleeding, recent illness, changes in medication, or questions/concerns. PT/INR results, Coumadin dose instructions, and next PT/INR date communicated as noted by Pharmacist: Yes FAIZA BRYANT 11/26/2023, 2:06 PM * Love Kulkarni RPh - 11/26/2023 1:55 PM EDT Images from the original note were not included. Coumadin Clinic (region specific) Objective Current Warfarin Dose As of 11/26/2023 Warfarin maintenance plan: 4 mg (1 mg x 4) every day (held 11/23 & 11/24) INR Result As of 11/26/2023 INR goal: 2.5-3.5 INR used for dosin.0 (11/26/2023) Assessment & Plan Warfarin Plan As of 11/26/2023 Full warfarin instructions: 11/25: Hold; Otherwise 4 mg every day Next INR check: 12/01/2023 Repeat PT/INR in 5 days (s) Weekly dose: not changed Additional Dosing Information: Description Home machine - weekly checks 09/24/23 - pt in the process of establishing with pcp/cardio in [facility] to contact patient with dose instructions as noted. Love Kulkarni RPh 11/26/2023, 1:55 PM * Mackenzie Gonzales PHARM Tech - 11/26/2023 1:42 PM EDT Patient Phone Numbers Patient calling in today's INR result of 4.0 Thank you, Mackenzie Gonzales Toppiece Chopper [facility] Services ([facility]PS) (Formerly Telepharmacy) 11/26/2023, 1:42 PM documented in this encounter Plan of Treatment Upcoming Encounters Date Type Department Care Team (Late st Contact Info) Description 11/30/2023 6:15 PM EDT Anticoagulation Pharmacy Call Center [address] [place] [address] [facility] [address] [place] [address] Health Maintenance Due Date Last Done Comments [...] encounter Medical Devices Implanted Type Area Chief Payroll Clerk Device Identifier Shelf Expiration Date Model / Serial / Lot Acetabular Clusterhole Shell48 - [id number] Implanted:Qty: 1 on 05/08/2022 by Nicolás Han MD at OR [facility] Left: Hip JORDYN : ORTHOPAEDICS 08/23/2023 702-04-48D / / [id number] Hip Hd Nk Alumina Mod D 36/ 5 - [id number] Implanted:Qty: 1 on 05/08/2022 by Nicolás Han MD at OR [facility] Left: Hip JORDYN : ORTHOPAEDICS 01/29/2025 6570-0-036 / / [id number] Implant Stem Hip Colr Std 4 - [id number] Implanted:Qty: 1 on 05/08/2022 by Nicolás Han MD at OR [facility] Left: Hip JORDYN : ORTHOPAEDICS 03/06/2027 1896-1156 / / [id number] Trident Acetabular X3 0 36 D - [id number] Implanted:Qty: 1 on 05/08/2022 by Nicolás Han MD at OR [facility] Left: Hip JORDYN : ORTHOPAEDICS 723-00-36D / / [id number] Cath Cv Lumen Single 5fr - [id number] Implanted:Qty: 1 on 07/20/2022 at [facility] CR BARD : PERIPHERAL VASCULAR [id number] 07/08/2025 [id number] / / [id number] Cath Dual 6fr Line Pwr [id number] - [id number] Implanted:Qty: 1 on 07/20/2022 at [facility] CR BARD : PERIPHERAL VASCULAR [id number] 07/08/2025 [id number] / / [id number] Duraclip 11mm Repositionable - [id number] Implanted:Qty: 1 on 01/24/2023 by Surendra Kemp, DO at [place] [facility] [employer] [id number] / / Duraclip 11mm Repositionable - [id number] Implanted:Qty: 1 on 01/24/2023 by Surendra Kemp, DO at [place] [facility] [employer] [id number] / / documented as of this encounter Procedures Procedure Name Priority Date/Time Associated Diagnosis Comments OUTSIDE LAB-PT/INR Routine 11/26/2023 documented in this encounter Results * OUTSIDE LAB-PT/INR (11/26/2023) INR-OUTSIDE LAB 4.0 11/26/2023 History Per Patient LABORATORY documented in this [...] the patient have Health Care Power of Electric Cutter Operator? No Full Code 08/13/2022 2:07 AM [...] the patient have Health Care Power of Electric Cutter Operator? No Care Teams Butter Production Supervisor Relationship Specialty Start Date End Date Nena Richardson DO [address] [place] [address] PCP - General Cardiovascular Medicine 09/15/23 documented as of this encounter
--- OUTSIDE RECORDS SUMMARY | 2024-02-25 23:43 | External Medical Summary | Summary of Care ---
Author Name Unknown Organization [facility] Address [address] [facility] [place] [address] Phone [phone] Care Team Providers Care Justice Court Judge Name Role Phone Nena Richardson Primary Care Provider Encounter Details Date Type Department Care Team (Late st Contact Info) Description 11/30/2023 Result Scan Unspecified Department Love Kulkarni, [facility] [address] [place] [address] <No scans attached> Allergies Active Allergy Reactions [...] PM EDT Anticoagulation Pharmacy Call Center [address] [facility] [place] [address] [facility] [address] [facility] [place] [address] Atrial fibrillation, unspecified type (HCC)* 12/08/2023 6:30 AM EDT Anticoagulation Pharmacy Call Center [address] [facility] [place] [address] [facility] [address] [facility] [place] [address] Health Maintenance Due Date Last Done Comments [...] this encounter Medical Devices Implanted Type Area Hammer Shop Supervisor Device Identifier Shelf Expiration Date Model / Serial / Lot Acetabular Clusterhole Shell48 - [id number] Implanted:Qty: 1 on 05/08/2022 by Nicolás Han MD at OR [facility] Left: Hip JORDYN : ORTHOPAEDICS 08/23/2023 702-04-48D / / [id number] Hip Hd Nk Alumina Mod D 36/ 5 - [id number] Implanted:Qty: 1 on 05/08/2022 by Nicolás Han MD at [facility] Left: Hip JORDYN : ORTHOPAEDICS 01/29/2025 6570-0-036 / / [id number] Implant Stem Hip Colr Std 4 - [id number] Implanted:Qty: 1 on 05/08/2022 by Nicolás Han MD at [facility] Left: Hip JORDYN : ORTHOPAEDICS 03/06/2027 5656-0885 / / [id number] Trident Acetabular X3 0 36 D - [id number] Implanted:Qty: 1 on 05/08/2022 by Nicolás Han MD at OR [facility] Left: Hip JORDYN : ORTHOPAEDICS 723-00-36D / / [id number] Cath Cv Lumen Single 5fr - [id number] Implanted:Qty: 1 on 07/20/2022 at [facility] CR BARD : PERIPHERAL VASCULAR [id number] 07/08/2025 8377499 / / [id number] Cath Dual 6fr Line Pwr [id number] - [id number] Implanted:Qty: 1 on 07/20/2022 at [facility] CR BARD : PERIPHERAL VASCULAR [id number] 07/08/2025 [id number] / / [id number] Duraclip 11mm Repositionable - [id number] Implanted:Qty: 1 on 01/24/2023 by Surendra Kemp DO [place] [facility] [employer] [id number] / / Duraclip 11mm Repositionable - [id number] Implanted:Qty: 1 on 01/24/2023 by Surendra Kemp DO at [place] [facility] [employer] [id number] / / documented as of this encounter Procedures Procedure Name Priority Date/Time Associated Diagnosis Comments OUTSIDE LAB RESULTS 11/30/2023 documented in this encounter Results * OUTSIDE LAB RESULTS (11/30/2023) 11/30/2023 Love Kulkarni [facility] LABORATORY documented in this encounter Advance Directives [...] the patient have Health Care Power of High Wire Artist? No Full Code 08/13/2022 2:07 AM 08/28/2022 [...] the patient have Health Care Power of High Wire Artist? No Care Teams Justice Court Judge Relationship Specialty Start Date End Date Nena Richardson DO [address] [place] [address] PCP - General Cardiovascular Medicine 09/15/23 documented as of this encounter
--- OUTSIDE RECORDS SUMMARY | 2024-02-25 23:43 | External Medical Summary | Summary of Care ---
Author Name Unknown Organization [facility] Address [address] [place] [address] Phone [phone] Care Team Providers Care Jukebox Checker Name Role Phone Nena Richardson Primary Care Provider Encounter Details Date Type Department Care Team (Late st Contact Info) Description 11/08/2023 Telephone Pharmacy, [facility] [place] [address] [place] [address] [address] [facility], [facility] [address] [facility] [place] [address] Allergies Active Allergy Reactions Criticality Noted Date [...] encounter Miscellaneous Notes * Telephone Encounter - Tonya Garnett, city attorney - 11/08/2023 2:37 PM EDT Patient calling again, was not aware we had left a voicemail, went over dosing with patient, she repeated it back correctly, no problems with bleeding/bruising, no missed/extra doses, patient states she does not need a call back from the pharmacist, thank you. Tonya Garnett CPhT, [place] Property Administrator II [facility] Services ([facility]PS) (formerly Telepharmacy) * Telephone Encounter - Farhat Harris city attorney - 11/08/2023 2:31 PM EDT Caller's name: Dilma Preferred call back number(OFFICE NUMBER FOR ): [phone] Reason for call: Questions about Coumadin/ Lovenox dosing: Pt calling for dose dirs Thank you, Farhat Harris CPhT Food Counter Attendant [facility] [address] [facility] 11/08/2023,2:31 PM documented in this encounter Plan [...] this encounter Medical Devices Implanted Type Area Sand Cutter Device Identifier Shelf Expiration Date Model / Serial / Lot Acetabular Clusterhole Shell48 - [id number] Implanted:Qty: 1 on 05/08/2022 by Nicolás Han MD at OR [facility] Left: Hip JORDYN : ORTHOPAEDICS 08/23/2023 702-04-48D / / [id number] Hip Hd Nk Alumina Mod D 36/ 5 - [id number] Implanted:Qty: 1 on 05/08/2022 by Nicolás Han MD at OR [facility] Left: Hip JORDYN : ORTHOPAEDICS 01/29/2025 6570-0-036 / / [id number] Implant Stem Hip Colr Std 4 - [id number] Implanted:Qty: 1 on 05/08/2022 by Nicolás Han MD at OR [facility] Left: Hip JORDYN : ORTHOPAEDICS 03/06/2027 7017-1741 / / [id number] Trident Acetabular X3 0 36 D - [id number] Implanted:Qty: 1 on 05/08/2022 by Nicolás Han MD at OR [facility] Left: Hip JORDYN : ORTHOPAEDICS 723-00-36D / / [id number] Cath Cv Lumen Single 5fr - [id number] Implanted:Qty: 1 on 07/20/2022 at [facility] BARD : PERIPHERAL VASCULAR [id number] 07/08/2025 0191804 / / [id number] Cath Dual 6fr Line Pwr [id number] - [id number] Implanted:Qty: 1 on 07/20/2022 at [facility] BARD : PERIPHERAL VASCULAR [id number] 07/08/2025 [id number] / / [id number] Duraclip 11mm Repositionable - [id number] Implanted:Qty: 1 on 01/24/2023 by Surendra Kemp, DO at OR [facility] [employer] [id number] / / Duraclip 11mm Repositionable - [id number] Implanted:Qty: 1 on 01/24/2023 by Surendra Kemp, DO at OR [facility] [employer] [id number] / / documented as of this encounter [...] the patient have Health Care Power of Delivery Man? No Full Code 08/13/2022 2:07 AM 08/28/2022 [...] the patient have Health Care Power of Delivery Man? No Care Teams Jukebox Checker Relationship Specialty Start Date End Date Nena Richardson DO [address] [place] [address] PCP - General Cardiovascular Medicine 09/15/23 documented as of this encounter
--- OUTSIDE RECORDS SUMMARY | 2024-02-25 23:43 | External Medical Summary | Summary of Care ---
Author Name Unknown Organization [facility] Address [address] [facility] [address] Phone [phone] Care Team Providers Care Glove Printer Name Role Phone Nena Richardson Primary Care Provider Reason for Visit * Reason Comments Dosage Adjustment Via Phone (anticoag Cl inic) Encounter Details Date Type Department Care Team (Latest Contact Info) Description 11/17/2023 6:30 AM EDT Anticoagulation Pharmacy Call Center [phone] [place] [address] [facility] [address] [place] [address] Persistent atrial fibrillation (HCC)* Allergies Active Allergy [...] as of this encounter (statuses as of 11/17/2023) Medications Medication Sig Dispensed Refills Start Date [...] as of this encounter (statuses as of 11/17/2023) Active Problems Problem Noted Date Diagnosed Date [...] as of this encounter (statuses as of 11/17/2023) Resolved Problems Problem Noted Date Diagnosed Date [...] as of this encounter (statuses as of 11/17/2023) Immunizations Name Administration Dates Next Due Pneumococcal [...] * Love Kulkarni, [facility] - 11/17/2023 12:31 PM EDT Noted, tracker updated Love Kulkarni Rph, Pharm.D. Clinical Pharmacist Centralized Clinical Pharmacy Services ([facility]PS) (formerly Telepharmacy) [phone] 11/17/2023,12:31 PM * Fausto Pereyra CPhT - 11/17/2023 11:43 AM EDT Contacts Type Contact Phone/Fax 11/17/2023 08:16 AM EDT Phone (Outgoing) Dilma Hogan (Self) [phone] (M) Spoke to Patient 11/17/2023 11:34 AM EDT Phone (Outgoing) Dilma Hogan (Self) [phone] (M) Spoke to Patient Subjective Patient Findings Positives: Change in medications (picking up medication today for UTI and hypothyroid, does not know the names.) Negatives: Signs/symptoms of thrombosis, Signs/symptoms of bleeding, Change in health, Change in alcohol use, Change in activity, Upcoming invasive procedure, Missed doses, Extra doses, Change in diet/appetite, Bruising Comments: Patient has been taking 4mg Coumadin daily; advised to continue as INR is in range. Advised patient to contact [facility] with names of medications she is picking up today. Advised patient to contact Anticoagulation Clinic if any unusual bruising or bleeding, recent illness, changes in medication, or questions/concerns. PT/INR results, Coumadin dose instructions, and next PT/INR date communicated as noted by Pharmacist: Yes (see comment above) Fausto Pereyra CPhT 11/17/2023, 11:43 AM * Love Kulkarni RPh - 11/17/2023 10:11 AM EDT Coumadin Clinic (region specific) Objective Current Warfarin Dose As of 11/17/2023 Warfarin maintenance plan: 2 mg (1 mg x 2) every day INR Result As of 11/17/2023 INR goal: 2.5-3.5 INR used for dosin.5 (11/17/2023) Assessment & Plan Warfarin Plan As of 11/17/2023 Full warfarin instructions: 2 mg every day No change documented: Love Kulkarni RPh Next INR check: 11/24/2023 Last week pt was taking wrong dose. Please clarify if she's been taking 2mg or 4mg? Want to continue same regimen since INR is in range. No HOLD necessary for Paracentesis on 11/17 Repeat PT/INR in 1 week(s) Weekly dose: not changed Additional Dosing Information: Description Home machine - weekly checks 09/24/23 - pt in the process of establishing with pcp/cardio in [facility] to contact patient with dose instructions as noted. Love Kulkarni RPh 11/17/2023, 10:11 AM * Victoria Park CPhT - 11/17/2023 8:16 AM EDT Patient Phone Numbers Spoke with patient to obtain today's INR result of 2.5 Patient states she is scheduled for a paracentesis on 11/18/2023. Thank you, Victoria Park CPhT Solution Specialist II Centralized Clinical Pharmacy Services (CCPS) (formerly telepharmacy) 11/17/2023,8:16 AM documented in this encounter Plan of [...] this encounter Medical Devices Implanted Type Area Line Assigner Device Identifier Shelf Expiration Date Model / Serial / Lot Acetabular Clusterhole Shell48 - [id number] Implanted:Qty: 1 on 05/08/2022 by Nicolás Han MD at [facility] Left: Hip JORDYN : ORTHOPAEDICS 08/23/2023 702-04-48D / / [id number] Hip Hd Nk Alumina Mod D 36/ 5 - [id number] Implanted:Qty: 1 on 05/08/2022 by Nicolás Han MD at [facility] Left: Hip JORDYN : ORTHOPAEDICS 01/29/2025 6570-0-036 / / [id number] Implant Stem Hip Colr Std 4 - [id number] Implanted:Qty: 1 on 05/08/2022 by Nicolás Han MD at [facility] Left: Hip JORDYN : ORTHOPAEDICS 03/06/2027 0604-0594 / / [id number] Trident Acetabular X3 0 36 D - [id number] Implanted:Qty: 1 on 05/08/2022 by Nicolás Han MD at OR [facility] Left: Hip JORDYN : ORTHOPAEDICS 723-00-36D / / [id number] Cath Cv Lumen Single 5fr - [id number] Implanted:Qty: 1 on 07/20/2022 at [facility] CR BARD : PERIPHERAL VASCULAR [id number] 07/08/2025 [id number] / / [id number] Cath Dual 6fr Line Pwr [id number] - [id number] Implanted:Qty: 1 on 07/20/2022 at [facility] CR BARD : PERIPHERAL VASCULAR [id number] 07/08/2025 [id number] / / [id number] Duraclip 11mm Repositionable - [id number] Implanted:Qty: 1 on 01/24/2023 by Surendra Kemp, DO at [place] [facility] [employer] OLEG [id number] / / Duraclip 11mm Repositionable - [id number] Implanted:Qty: 1 on 01/24/2023 by Surendra Kemp, DO at [place] [facility] CONMED OLEG [id number] / / documented as of this encounter Procedures Procedure Name Priority Date/Time Associated Diagnosis Comments OUTSIDE LAB-PT/INR Routine 11/17/2023 documented in this encounter Results * OUTSIDE LAB-PT/INR (11/17/2023) INR-OUTSIDE LAB 2.5 11/17/2023 History Per Patient LABORATORY documented in this [...] the patient have Health Care Power of Court Stenographer? No Full Code 08/13/2022 2:07 AM 08/28/2022 [...] the patient have Health Care Power of Court Stenographer? No Care Teams Glove Printer Relationship Specialty Start Date End Date Nena Richardson DO [address] [place] [address] PCP - General Cardiovascular Medicine 09/15/23 documented as of this encounter
--- OUTSIDE RECORDS SUMMARY | 2024-02-25 23:43 | External Medical Summary | Summary of Care ---
Author Name Unknown Organization [facility] Address [address] [place] [address] Phone [phone] Care Team Providers Care Field Crop Farm Worker Name Role Phone Nena Richardson Primary Care Provider Reason for Visit * Reason Onset Date Comments Other 11/15/2023 Encounter Details Date Type Department Care Team (Late st Contact Info) Description 11/15/2023 Telephone Pharmacy Call Center [phone] [place] [address] [facility] [address] [facility] [place] [address] Other Allergies Active Allergy Reactions Criticality Noted Date [...] as of this encounter (statuses as of 11/15/2023) Medications Medication Sig Dispensed Refills Start Date [...] as of this encounter (statuses as of 11/15/2023) Active Problems Problem Noted Date Diagnosed Date [...] as of this encounter (statuses as of 11/15/2023) Resolved Problems Problem Noted Date Diagnosed Date [...] as of this encounter (statuses as of 11/15/2023) Immunizations Name Administration Dates Next Due Pneumococcal [...] encounter Miscellaneous Notes * Telephone Encounter - Love Kulkarni [facility] - 11/15/2023 4:32 PM EDT Date/Time Type Contact Phone/Fax 11/15/2023 04:32 PM EDT by Love Kulkarni RPh Outgoing Dilma Hogan (Self) Remove Left Message Noted, advised pt to take 1mg today and test with home machine tomorrow. Love Kulkarni Rph, Pharm.D. Clinical Pharmacist Centralized Clinical Pharmacy Services (CCPS) (formerly Telepharmacy) [phone] 11/15/2023,4:32 PM * Telephone Encounter - Ingrid Chappell PHARM Tech - 11/15/2023 1:21 PM EDT Caller's name: Dilma Darshan call back number(OFFICE NUMBER FOR ): [phone] Reason for call: Pt thought she was taking 1mg tabs and didn't realize they were 2mg tabs so since Wednesday she has only been taking 1 (2mg) tablets however prior to that she had been taking more than she shouldve. Thank you, Ingrid Chappell Radar Engineer Centralized Clinical Pharmacy Services 11/15/2023,1:21 PM documented in this encounter Plan of Treatment Upcoming Encounters Date Type Department Care Team (Late st Contact Info) Description 11/16/2023 6:15 PM EDT [facility] Pharmacy Call Center [address] [place] [address] [facility] [address] [facility] [place] [address] Health Maintenance Due Date Last Done Comments [...] this encounter Medical Devices Implanted Type Area Extracorporeal Technician Device Identifier Shelf Expiration Date Model / Serial / Lot Acetabular Clusterhole Shell48 - [id number] Implanted:Qty: 1 on 05/08/2022 by Nicolás Han MD at OR [facility] Left: Hip JORDYN : ORTHOPAEDICS 08/23/2023 702-04-48D / / [id number] Hip Hd Nk Alumina Mod D 36/ 5 - [id number] Implanted:Qty: 1 on 05/08/2022 by Nicolás Han MD at OR [facility] Left: Hip JORDYN : ORTHOPAEDICS 01/29/2025 6570-0-036 / / [id number] Implant Stem Hip Colr Std 4 - [id number] Implanted:Qty: 1 on 05/08/2022 by Nicolás Han MD at OR [facility] Left: Hip JORDYN : ORTHOPAEDICS 03/06/2027 4575-4988 / / [id number] Trident Acetabular X3 0 36 D - [id number] Implanted:Qty: 1 on 05/08/2022 by Nicolás Han MD at [facility] Left: Hip JORDYN : ORTHOPAEDICS 723-00-36D / / [id number] Cath Cv Lumen Single 5fr - [id number] Implanted:Qty: 1 on 07/20/2022 at [facility] CR BARD : PERIPHERAL VASCULAR [id number] 07/08/2025 [id number] / / [id number] Cath Dual 6fr Line Pwr [id number] - [id number] Implanted:Qty: 1 on 07/20/2022 at [facility] CR BARD : PERIPHERAL VASCULAR [id number] 07/08/2025 [id number] / / [id number] Duraclip 11mm Repositionable - [id number] Implanted:Qty: 1 on 01/24/2023 by Surendra Kemp DO at OR [facility] CONMED OLEG [id number] / / Duraclip 11mm Repositionable - [id number] Implanted:Qty: 1 on 01/24/2023 by Surendra Kemp DO at OR [facility] CONMED OLEG [id number] / / documented as of this encounter [...] the patient have Health Care Power of Inventory Planner? No Full Code 08/13/2022 2:07 AM 08/28/2022 [...] the patient have Health Care Power of Inventory Planner? No Care Teams Field Crop Farm Worker Relationship Specialty Start Date End Date Nena Richardson DO [address] [place] [address] PCP - General Cardiovascular Medicine 09/15/23 documented as of this encounter
--- OUTSIDE RECORDS SUMMARY | 2024-02-25 23:43 | External Medical Summary | Summary of Care ---
Author Name Unknown Organization [facility] Address [address] [place] [facility] [place] [address] Phone [phone] Care Team Providers Care Veterinary Radiologist Name Role Phone Nena Richardson Primary Care Provider Reason for Visit * Reason Onset Date Comments Medication Question 11/28/2023 Encounter Details Date Type Department Care Team (Late st Contact Info) Description 11/28/2023 Telephone Pharmacy Call Center [address] [facility] [place] [address] Nirmala Blum, [facility] [address] [facility] [place] [address] Medication Question Allergies Active Allergy Reactions Criticality Noted Date [...] as of this encounter (statuses as of 11/28/2023) Medications Medication Sig Dispensed Refills Start Date [...] as of this encounter (statuses as of 11/28/2023) Active Problems Problem Noted Date Diagnosed Date [...] as of this encounter (statuses as of 11/28/2023) Resolved Problems Problem Noted Date Diagnosed Date [...] as of this encounter (statuses as of 11/28/2023) Immunizations Name Administration Dates Next Due Pneumococcal [...] encounter Miscellaneous Notes * Telephone Encounter - Nirmala Blum RP - 11/28/2023 8:04 PM EDT Patient called back to report INR today was 2.7. Denies any other unusual bleeding/bruising events.Instructed pt to continue weekly dose as usual and continue monitoring. Advised pt to discuss isolated bleeding event further with hematology at [facility] on 11/29. Will continue f/u with [facility] as scheduled on 11/29 due to work trip on 11/30. Nirmala Blum PharmD PGY1 Survey Director 11/28/2023 8:11 PM * Telephone Encounter - Nirmala Blum RPh - 11/28/2023 8:46 AM EDT Patient called to report vaginal bleeding this morning with concomitant use of warfarin. Notes bleeding resolved "after 1 wipe." Denies any other unusual bleeding or bruising. Pt notes only medication change was filgrastim which was started on 11/25. Denies any other changes in diet or lifestyle. Currently on warfarin for afib and mechanical valve replacement. INR on 11/25 was 4. Goal INR 2.5-3.5. Confirmed pt held dose on 11/25 and resumed 4 mg daily. Pt also has hx of chronic anemia. Most recentCBC from 11/11 showed low hgb (7.8). Will be repeating CBC for heme appt on 11/29. Instructed pt to monitor for s/s of bleeding closely. Discussed checking INR today. Pt is not home at the moment but she will check her INR when she gets home this afternoon. Pt agreeable to call with results if abnormal. Instructed pt to report to ER if bleeding persists or she experiences new ligh theadedness/dizziness. Next INR check is scheduled for 11/29. [facility] to follow up as scheduled. Nirmala Blum PharmD PGY1 Survey Director 11/28/2023 10:03 AM documented in this encounter Plan of Treatment Upcoming Encounters Date Type Department Care Team (Late st Contact Info) Description 11/30/2023 6:15 PM EDT Anticoagulation Pharmacy Call Center [address] [facility] [place] [address] [facility] [address] [facility] [place] [address] Health Maintenance Due Date Last Done Comments [...] this encounter Medical Devices Implanted Type Area Heel Slicker Device Identifier Shelf Expiration Date Model / Serial / Lot Acetabular Clusterhole Shell48 - [id number] Implanted:Qty: 1 on 05/08/2022 by Nicolás Han MD at OR [facility] Left: Hip JORDYN : ORTHOPAEDICS 08/23/2023 702-04-48D / / [id number] Hip Hd Nk Alumina Mod D 36/ 5 - [id number] Implanted:Qty: 1 on 05/08/2022 by Nicolás Han MD at [facility] Left: Hip JORDYN : ORTHOPAEDICS 01/29/2025 6570-0-036 / / [id number] Implant Stem Hip Colr Std 4 - [id number] Implanted:Qty: 1 on 05/08/2022 by Nicolás Han MD at [facility] Left: Hip JORDYN : ORTHOPAEDICS 03/06/2027 6612-9036 / / [id number] Trident Acetabular X3 0 36 D - [id number] Implanted:Qty: 1 on 05/08/2022 by Nicolás Han MD at [facility] Left: Hip JORDYN : ORTHOPAEDICS 723-00-36D / / [id number] Cath Cv Lumen Single 5fr - [id number] Implanted:Qty: 1 on 07/20/2022 at [facility] CR BARD : PERIPHERAL VASCULAR [id number] 07/08/2025 [id number] / / [id number] Cath Dual 6fr Line Pwr [id number] - [id number] Implanted:Qty: 1 on 07/20/2022 at [facility] CR BARD : PERIPHERAL VASCULAR [id number] 07/08/2025 [id number] / / [id number] Duraclip 11mm Repositionable - [id number] Implanted:Qty: 1 on 01/24/2023 by Surendra Kemp DO at [place] [facility] [employer] OLEG [id number] / / Duraclip 11mm Repositionable - [id number] Implanted:Qty: 1 on 01/24/2023 by Surendra Kemp DO at [place] [facility] [employer] OLE[employer] [id number] / / documented as of this encounter Procedures Procedure Name Priority Date/Time Associated Diagnosis Comments OUTSIDE LAB-PT/INR Routine 11/28/2023 documented in this encounter Results * OUTSIDE LAB-PT/INR (11/28/2023) INR-OUTSIDE LAB 2.7 11/28/2023 Narrative Resulting Agency Comment Home machine History Per Patient LABORATORY documented in this [...] the patient have Health Care Power of Detective Automobile Section? No Full Code 08/13/2022 2:07 AM 08/28/2022 [...] the patient have Health Care Power of Detective Automobile Section? No Care Teams Veterinary Radiologist Relationship Specialty Start Date End Date Nena Richardson DO [address] [place] [address] PCP - General Cardiovascular Medicine 09/15/23 documented as of this encounter
--- OUTSIDE RECORDS SUMMARY | 2024-02-25 23:43 | External Medical Summary | Summary of Care ---
Author Name Unknown Organization [facility] Address [address] [place] [address] Phone [phone] Care Team Providers Care Spray Machine Operator Name Role Phone Nena Richardson Primary Care Provider Reason for Visit * Reason Onset Date Comments Left Without Being Seen 11/25/2023 Encounter Details Date Type Department Care Team (Latest Contact Info) Description 11/25/2023 11:30 AM EDT Convenient Care Visit [facility] [address] [place] [address] Marilyn Andrew PA-C [address] [place] [phone] Left without being seen* Allergies Active Allergy Reactions Criticality Noted Date [...] as of this encounter (statuses as of 11/25/2023) Medications Medication Sig Dispensed Refills Start Date [...] as of this encounter (statuses as of 11/25/2023) Active Problems Problem Noted Date Diagnosed Date [...] as of this encounter (statuses as of 11/25/2023) Resolved Problems Problem Noted Date Diagnosed Date [...] as of this encounter (statuses as of 11/25/2023) Immunizations Name Administration Dates Next Due Pneumococcal [...] as of this encounter Progress Notes * Marilyn Andrew PA-C - 11/25/2023 1:08 PM EDT Patient left without being seen by the provider. documented in this encounter Plan of Treatment Upcoming Encounters Date Type Department Care Team (Late st Contact Info) Description 11/26/2023 6:15 PM EDT Anticoagulation Pharmacy Call Center [address] [facility] [place] [address] [facility] [address] 60 [facility] [place] [address] Health Maintenance Due Date Last Done Comments [...] this encounter Medical Devices Implanted Type Area Offset Proof Press Operator Device Identifier Shelf Expiration Date Model / Serial / Lot Acetabular Clusterhole Shell48 - [id number] Implanted:Qty: 1 on 05/08/2022 by Nicolás Han MD at OR [facility] Left: Hip JORDYN : ORTHOPAEDICS 08/23/2023 702-04-48D / / [id number] Hip Hd Nk Alumina Mod D 36/ 5 - [id number] Implanted:Qty: 1 on 05/08/2022 by Nicolás Han MD at OR [facility] Left: Hip JORDYN : ORTHOPAEDICS 01/29/2025 6570-0-036 / / [id number] Implant Stem Hip Colr Std 4 - [id number] Implanted:Qty: 1 on 05/08/2022 by Nicolás Han MD at [facility] Left: Hip JORDYN : ORTHOPAEDICS 03/06/2027 8780-0313 / / [id number] Trident Acetabular X3 0 36 D - [id number] Implanted:Qty: 1 on 05/08/2022 by Nicolás Han MD at OR [facility] Left: Hip JORDYN : ORTHOPAEDICS 723-00-36D / / [id number] Cath Cv Lumen Single 5fr - [id number] Implanted:Qty: 1 on 07/20/2022 at [facility] CR BARD : PERIPHERAL VASCULAR [id number] 07/08/2025 [id number] / / [id number] Cath Dual 6fr Line Pwr [id number] - [id number] Implanted:Qty: 1 on 07/20/2022 at [facility] CR BARD : PERIPHERAL VASCULAR [id number] 07/08/2025 [id number] / / [id number] Duraclip 11mm Repositionable - [id number] Implanted:Qty: 1 on 01/24/2023 by Surendra Kemp DO at [place] [facility] CRAiLAR [id number] / / Duraclip 11mm Repositionable - [id number] Implanted:Qty: 1 on 01/24/2023 by Surendra Kemp DO at OR [facility] CRAiLAR [id number] / / documented as of this encounter Visit Diagnoses Diagnosis Left without being seen- Primary documented in this encounter Advance Directives [...] the patient have Health Care Power of Solar Sales Representative And Assessor? No Full Code 08/13/2022 2:07 AM 08/28/2022 [...] the patient have Health Care Power of Solar Sales Representative And Assessor? No Care Teams Spray Machine Operator Relationship Specialty Start Date End Date Nena Richardson DO [address] [place] [address] PCP - General Cardiovascular Medicine 09/15/23 documented as of this encounter
--- OUTSIDE RECORDS SUMMARY | 2024-02-25 23:44 | External Medical Summary | Summary of Care ---
Author Name Unknown Organization [facility] [address] [address] Phone [phone] Care Team Providers Care Senior Supplier Quality Engineer Name Role Phone Nena Richardson Primary Care Provider Reason for Visit * Reason Comments Dosage Adjustment Via Phone (anticoag Cl inic) Encounter Details Date Type Department Care Team (Latest Contact Info) Description 09/24/2023 6:30 AM EST Anticoagulation Pharmacy Call Center [phone] [place] [address] [facility] [address] [facility] [place] [address] Persistent atrial fibrillation (HCC)* Allergies Active Allergy [...] as of this encounter (statuses as of 09/24/2023) Medications Medication Sig Dispensed Refills Start Date [...] as of this encounter (statuses as of 09/24/2023) Active Problems Problem Noted Date Diagnosed Date [...] as of this encounter (statuses as of 09/24/2023) Resolved Problems Problem Noted Date Diagnosed Date [...] as of this encounter (statuses as of 09/24/2023) Immunizations Name Administration Dates Next Due Pneumococcal [...] as of this encounter Progress Notes * Jaye Velasquez, [facility] - 09/24/2023 8:22 AM EST Images from the original note were not included. Medication Therapy Disease Management - Anticoagulation Patient: Dilma Hogan | : 1960 Subjective Contacts Type Contact Phone/Fax 09/24/2023 12:02 PM EST Phone (Outgoing) Dilma Hogan (Self) [phone] (M) Patient-Reported Symptoms: Patient Findings Positives: Hospital admission (Admitted to [facility] 08/19 - 09/17 for SOB secondary to acute decompensated HF exacerbation), Other complaints (Pt has gained water weight back (139 at discharge, 152 recently) - will recheck INR in 1 week instead of 2 due to this.) Negatives: Signs/symptoms of bleeding, Change in health, Missed doses, Extra doses, Change in medications, Change in diet/appetite, Bruising Comments: NOTE - per 09/15/23 TE - pt did call in to report she is no longer seeing providers at [facility]. I spoke with patient today and she noted she is in the process of establishing with providersin the [facility]. She has not yet established with new providers as she has been hospitalized formost of Aug & early Sep. Objective Current Warfarin Dose As of 09/24/2023 Warfarin maintenance plan: 2 mg (1 mg x 2) every day INR Result As of 09/24/2023 INR goal: 2.5-3.5 INR used for dosin.1 (09/23/2023) Assessment & Plan Warfarin Plan As of 09/24/2023 Full warfarin instructions: 09/24: 4 mg; Otherwise 2 mg every day Next INR check: 09/30/2023 Repeat PT/INR in 1 week(s) Weekly dose: not changed Additional Dosing Information: Description Home machine - weekly checks 09/24/23 - pt in the process of [facility] Jaye Velasquez RPh Clinical Pharmacist 09/24/2023, 8:23 AM documented in this encounter Plan of [...] score < 10) 11/16/2015 11/15/2015 COVID-19 Vaccine (2022-2 4 season) 2023 05/28/2021, 11/12/2020, 10/22/2020 Influenza [...] this encounter Medical Devices Implanted Type Area Check Out Cashier Device Identifier Shelf Expiration Date Model / Serial / Lot Acetabular Clusterhole Shell48 - [id number] Implanted:Qty: 1 on 05/08/2022 by Nicolás Han MD at OR [facility] Left: Hip JORDYN : ORTHOPAEDICS 08/23/2023 702-04-48D / / [id number] Hip Hd Nk Alumina Mod D 36/ 5 - [id number] Implanted:Qty: 1 on 05/08/2022 by Nicolás Han MD at OR [facility] Left: Hip JORDYN : ORTHOPAEDICS 01/29/2025 6570-0-036 / / [id number] Implant Stem Hip Colr Std 4 - [id number] Implanted:Qty: 1 on 05/08/2022 by Nicolás Han MD at OR [facility] Left: Hip JORDYN : ORTHOPAEDICS 03/06/2027 6970-9431 / / [id number] Trident Acetabular X3 0 36 D - [id number] Implanted:Qty: 1 on 05/08/2022 by Nicolás Han MD at OR [facility] Left: Hip JORDYN : ORTHOPAEDICS 723-00-36D / / [id number] Cath Cv Lumen Single 5fr - [id number] Implanted:Qty: 1 on 07/20/2022 at [facility] CR BARD : PERIPHERAL VASCULAR [id number] 07/08/2025 [id number] / / [id number] Cath Dual 6fr Line Pwr [id number] - [id number] Implanted:Qty: 1 on 07/20/2022 at [facility] CR BARD : PERIPHERAL VASCULAR [id number] 07/08/2025 [id number] / / [id number] Duraclip 11mm Repositionable - [id number] Implanted:Qty: 1 on 01/24/2023 by Surendra Kemp DO at OR [facility] CONMED OLEG [id number] / / Duraclip 11mm Repositionable - [id number] Implanted:Qty: 1 on 01/24/2023 by Surendra Kemp DO at OR [facility] CONMED OLEG [id number] / / documented as of this encounter Procedures Procedure Name Priority Date/Time Associated Diagnosis Comments OUTSIDE LAB-PT/INR Routine 09/23/2023 documented in this encounter Results * OUTSIDE LAB-PT/INR (09/23/2023) INR-OUTSIDE LAB 2.1 HOME FINGERSTIC K DEVICE History Per Patient [...] the patient have Health Care Power of Workflow Developer? No Full Code 08/13/2022 2:07 AM [...] the patient have Health Care Power of Workflow Developer? No Care Teams Senior Supplier Quality Engineer Relationship Specialty Start Date End Date Nena Richardson DO [address] [place] [address] PCP - General Cardiovascular Medicine 09/15/23 documented as of this encounter"
--- OUTSIDE RECORDS SUMMARY | 2024-02-25 23:44 | External Medical Summary | Summary of Care ---
Author Name Unknown Organization [facility] Address [address] [address] Phone [phone] Care Team Providers Care Eyelet Punch Operator Name Role Phone Nena Richardson Primary Care Provider Reason for Visit * Reason Comments Dosage Adjustment Via Phone (anticoag Cl inic) Encounter Details Date Type Department Care Team (Latest Contact Info) Description 10/04/2023 6:30 AM EST Anticoagulation Pharmacy Call Center [phone] [place] [address] [facility] [address] [facility] [place] [address] Atrial fibrillation, unspecified type (HCC)* Allergies Active [...] as of this encounter (statuses as of 10/04/2023) Medications Medication Sig Dispensed Refills Start Date [...] as of this encounter (statuses as of 10/04/2023) Active Problems Problem Noted Date Diagnosed Date [...] as of this encounter (statuses as of 10/04/2023) Resolved Problems Problem Noted Date Diagnosed Date [...] as of this encounter (statuses as of 10/04/2023) Immunizations Name Administration Dates Next Due Pneumococcal [...] Kulkarni, [facility] - 10/04/2023 9:01 AM EST Images from the original note were not included. Medication Therapy Disease Management - Anticoagulation Patient: Dilma Hogan | : 1960 Subjective Contacts Type Contact Phone/Fax 10/04/2023 09:01 AM EST Phone (Outgoing) Dilma Hogan (Self) [phone] (M) Spoke to Patient Patient-Reported Symptoms: Patient Findings Positives: Change in diet/appetite Negatives: Signs/symptoms of thrombosis, Signs/symptoms of bleeding, Change in health, Change in alcohol use, Change in activity, Upcoming invasive procedure, Missed doses, Extra doses, Change in medications, Bruising Comments: Pt having issues with leaky gut Objective Current Warfarin Dose As of 10/04/2023 Warfarin maintenance plan: 2 mg (1 mg x 2) every day INR Result As of 10/04/2023 INR goal: 2.5-3.5 INR used for dosin.3 (10/04/2023) Assessment & Plan Warfarin Plan As of 10/04/2023 Full warfarin instructions: 10/04: Hold; 10/05: Hold; 10/06: 1 mg; Otherwise 2 mg every day Next INR check: 10/11/2023 Repeat PT/INR in 1 week(s) Weekly dose: not changed Additional Dosing Information: Description Home machine - weekly checks 09/24/23 - pt in the process of establishing with pcp/cardio in [facility] Love Kulkarni [facility] Clinical Pharmacist 10/04/2023, 9:01 AM * Wendy Junior, printing machine operator tape rules - 10/04/2023 8:10 AM EST Patient Phone Numbers Spoke with patient and obtained verbal INR result from today, 10/04/23. Patient states her weight has still really been fluctuating, states this is an ongoing issue that [facility] is aware of. INR = 6.3 Thank you, Wendy Junior Certified Appliance Service Technician [facility] ([facility]) 10/04/2023,8:10 AM documented in this encounter Plan of [...] Serial / Lot Acetabular Clusterhole Shell48 - [id number] Implanted:Qty: 1 on 05/08/2022 by Nicolás Han MD at [facility] Left: Hip JORDYN : ORTHOPAEDICS 08/23/2023 702-04-48D / / [id number] Hip Hd Nk Alumina Mod D 36/ 5 - [id number] Implanted:Qty: 1 on 05/08/2022 by Nicolás Han MD at OR [facility] Left: Hip JORDYN : ORTHOPAEDICS 01/29/2025 6570-0-036 / / [id number] Implant Stem Hip Colr Std 4 - [id number] Implanted:Qty: 1 on 05/08/2022 by Nicolás Han MD at [facility] Left: Hip JORDYN : ORTHOPAEDICS 03/06/2027 5395-6420 / / [id number] Trident Acetabular X3 0 36 D - [id number] Implanted:Qty: 1 on 05/08/2022 by Nicolás Han MD at [facility] Left: Hip JORDYN : ORTHOPAEDICS 723-00-36D / / [id number] Cath Cv Lumen Single 5fr - [id number] Implanted:Qty: 1 on 07/20/2022 at [facility] CR BARD : PERIPHERAL VASCULAR [id number] 07/08/2025 [id number] / / [id number] Cath Dual 6fr Line Pwr [id number] - [id number] Implanted:Qty: 1 on 07/20/2022 at [facility] CR BARD : PERIPHERAL VASCULAR [id number] 07/08/2025 [id number] / / [id number] Duraclip 11mm Repositionable - [id number] Implanted:Qty: 1 on 01/24/2023 by Surendra Kemp DO at OR [facility] Bio[employer] SolutionsMED OLEG [id number] / / Duraclip 11mm Repositionable - [id number] Implanted:Qty: 1 on 01/24/2023 by Surendra Kemp DO at OR [facility] Bio[employer] SolutionsMED OLEG [id number] / / documented as of this encounter Procedures Procedure Name Priority Date/Time Associated Diagnosis Comments OUTSIDE LAB-PT/INR Routine 10/04/2023 documented in this encounter Results * OUTSIDE LAB-PT/INR (10/04/2023) INR-OUTSIDE LAB 6.3 History Per Patient LABORATORY documented in this [...] the patient have Health Care Power of Emanations Analysis Technician? No Full Code 08/13/2022 2:07 AM 08/28/2022 [...] the patient have Health Care Power of Emanations Analysis Technician? No Care Teams Eyelet Punch Operator Relationship Specialty Start Date End Date Nena Richardson DO [address] [place] [address] PCP - General Cardiovascular Medicine 09/15/23 documented as of this encounter"
--- OUTSIDE RECORDS SUMMARY | 2024-02-25 23:44 | External Medical Summary | Summary of Care ---
Author Name Unknown Organization [facility] Address [address] [facility] [address] [place] [address] Phone [phone] Care Team Providers Care Crepe Sole Scourer Name Role Phone Nena Richardson Primary Care Provider Encounter Details Date Type Department Care Team (Late st Contact Info) Description 11/02/2023 Result Scan Unspecified Department Love Kulkarni, [facility] [address] [place] [address] <No scans attached> Allergies Active Allergy Reactions [...] as of this encounter (statuses as of 11/02/2023) Medications Medication Sig Dispensed Refills Start Date [...] as of this encounter (statuses as of 11/02/2023) Active Problems Problem Noted Date Diagnosed Date [...] as of this encounter (statuses as of 11/02/2023) Resolved Problems Problem Noted Date Diagnosed Date [...] as of this encounter (statuses as of 11/02/2023) Immunizations Name Administration Dates Next Due Pneumococcal [...] Care Team (Late st Contact Info) Description 11/02/2023 6:15 PM EDT Anticoagulation Pharmacy Call Center [address] [place] [address] [facility] 58 60 [facility] [place] [phone] Health Maintenance Due Date Last Done Comments [...] this encounter Medical Devices Implanted Type Area Accounts Payables Clerk Device Identifier Shelf Expiration Date Model / Serial / Lot Acetabular Clusterhole Shell48 - [id number] Implanted:Qty: 1 on 05/08/2022 by Nicolás Han MD at OR [facility] Left: Hip JORDYN : ORTHOPAEDICS 08/23/2023 702-04-48D / / [id number] Hip Hd Nk Alumina Mod D 36/ 5 - [id number] Implanted:Qty: 1 on 05/08/2022 by Nicolás Han MD at OR [facility] Left: Hip JORDYN : ORTHOPAEDICS 01/29/2025 6570-0-036 / / [id number] Implant Stem Hip Colr Std 4 - [id number] Implanted:Qty: 1 on 05/08/2022 by Nicloás Han MD at OR [facility] Left: Hip JORDYN : ORTHOPAEDICS 03/06/2027 9309-5952 / / [id number] Trident Acetabular X3 0 36 D - [id number] Implanted:Qty: 1 on 05/08/2022 by Nicolás Han MD at OR [facility] Left: Hip JORDYN : ORTHOPAEDICS 723-00-36D / / [id number] Cath Cv Lumen Single 5fr - [id number] Implanted:Qty: 1 on 07/20/2022 at [facility] CR BARD : PERIPHERAL VASCULAR [id number] 07/08/2025 [id number] / / [id number] Cath Dual 6fr Line Pwr [id number] - [id number] Implanted:Qty: 1 on 07/20/2022 at [facility] CR BARD : PERIPHERAL VASCULAR [id number] 07/08/2025 [id number] / / [id number] Duraclip 11mm Repositionable - [id number] Implanted:Qty: 1 on 01/24/2023 by Surendra Kemp DO at OR [facility] TheranosMED OLEG [id number] / / Duraclip 11mm Repositionable - [id number] Implanted:Qty: 1 on 01/24/2023 by Surendra Kemp DO at OR [facility] CONMED OLEG [id number] / / documented as of this encounter Procedures Procedure Name Priority Date/Time Associated Diagnosis Comments OUTSIDE LAB RESULTS 11/02/2023 documented in this encounter Results * OUTSIDE LAB RESULTS (11/02/2023) 11/02/2023 Love Kulkarni RPh LABORATORY documented in this encounter Advance Directives [...] the patient have Health Care Power of Prototype Fabricator? No Full Code 08/13/2022 2:07 AM 08/28/2022 [...] the patient have Health Care Power of Prototype Fabricator? No Care Teams Crepe Sole Scourer Relationship Specialty Start Date End Date Nena Richardson DO [address] [place] [address] PCP - General Cardiovascular Medicine 09/15/23 documented as of this encounter
--- OUTSIDE RECORDS SUMMARY | 2024-02-25 23:44 | External Medical Summary | Summary of Care ---
Author Name Unknown Organization [facility] Address [address] [address] [address] Phone [phone] Care Team Providers Care Gynecological Assistant Name Role Phone Nena Richardson Primary Care Provider Reason for Visit * Reason Comments Dosage Adjustment Via Phone (anticoag Cl inic) Encounter Details Date Type Department Care Team (Latest Contact Info) Description 09/24/2023 6:30 AM EST Anticoagulation Pharmacy Call Center [phone] [place] [address] [facility] [address] [facility] [place] [address] Persistent atrial fibrillation (HCC)* Allergies Active Allergy [...] this encounter Progress Notes * Jaye Velasquez, [facility] - 09/24/2023 8:22 AM EST Images from the original note were not included. Medication Therapy Disease Management - Anticoagulation Patient: Dilma Hogan | : 1960 Subjective Contacts Type Contact Phone/Fax 09/24/2023 12:02 PM EST Phone (Outgoing) Dilma Hogan (Self) [phone] (M) Patient-Reported Symptoms: Patient Findings Positives: Hospital admission (Admitted to [facility] 08/19 - 09/17 for SOB secondary to [...] she is no longer seeing providers at [facility]. I spoke with patient today and she noted she is in the process of establishing with providersin the [facility]. She has not yet established with [...] the process of establishing with pcp/cardio in [facility] Jaye Velasquez RPh Clinical Pharmacist 09/24/2023, 8:23 AM documented in this encounter Plan of Treatment Upcoming Encounters Date Type Department Care Team (Late st Contact Info) Description 11/10/2023 6:30 AM EDT Anticoagulation Pharmacy Call Center [phone] [place] [address] [facility] 58 60 [facility] [place] [address] Health Maintenance Due Date Last Done Comments [...] this encounter Medical Devices Implanted Type Area Principal Scientist Device Identifier Shelf Expiration Date Model / Serial / Lot Acetabular Clusterhole Shell48 - [id number] Implanted:Qty: 1 on 05/08/2022 by Nicolás Han MD at OR [facility] Left: Hip JORDYN : ORTHOPAEDICS 08/23/2023 702-04-48D / / [id number] Hip Hd Nk Alumina Mod D 36/ 5 - [id number] Implanted:Qty: 1 on 05/08/2022 by Nicolás Han MD at [facility] Left: Hip JORDYN : ORTHOPAEDICS 01/29/2025 6570-0-036 / / [id number] Implant Stem Hip Colr Std 4 - [id number] Implanted:Qty: 1 on 05/08/2022 by iNcolás Han MD at [facility] Left: Hip JORDYN : ORTHOPAEDICS 03/06/2027 5742-2228 / / [id number] Trident Acetabular X3 0 36 D - [id number] Implanted:Qty: 1 on 05/08/2022 by Nicolás Han MD at [facility] Left: Hip JORDYN : ORTHOPAEDICS 723-00-36D / / [id number] Cath Cv Lumen Single 5fr - [id number] Implanted:Qty: 1 on 07/20/2022 at [facility] CR BARD : PERIPHERAL VASCULAR [id number] 07/08/2025 1522990 / / [id number] Cath Dual 6fr Line Pwr [id number] - [id number] Implanted:Qty: 1 on 07/20/2022 at [facility] CR BARD : PERIPHERAL VASCULAR [id number] 07/08/2025 [id number] / / [id number] Duraclip 11mm Repositionable - [id number] Implanted:Qty: 1 on 01/24/2023 by Surendra Kemp DO at OR [facility] [employer] OLEG [id number] / / Duraclip 11mm Repositionable - [id number] Implanted:Qty: 1 on 01/24/2023 by Surendra Kemp DO at OR [facility] Motion MathMED OLEG [id number] / / documented as of this encounter [...] the patient have Health Care Power of Music Assistant? No Full Code 08/13/2022 2:07 AM 08/28/2022 [...] the patient have Health Care Power of Music Assistant? No Care Teams Gynecological Assistant Relationship Specialty Start Date End Date Nena Richardson DO [address] [place] [address] PCP - General Cardiovascular Medicine 09/15/23 documented as of this encounter"
--- OUTSIDE RECORDS SUMMARY | 2024-02-25 23:44 | External Medical Summary | Summary of Care ---
Author Name Unknown Organization [facility] Address [address] [place] [place] [address] Phone [phone] Care Team Providers Care Trimmer Buffing Wheel Name Role Phone Nena Richardson Primary Care Provider Reason for Visit * Reason Comments Dosage Adjustment Via Phone (anticoag Cl inic) Encounter Details Date Type Department Care Team (Latest Contact Info) Description 10/27/2023 6:45 AM EDT Anticoagulation Pharmacy Call Center [phone] [place] [address] [facility] [address] [place] [address] Atrial fibrillation, unspecified type (HCC)* Allergies Active [...] as of this encounter (statuses as of 10/27/2023) Medications Medication Sig Dispensed Refills Start Date [...] as of this encounter (statuses as of 10/27/2023) Active Problems Problem Noted Date Diagnosed Date [...] as of this encounter (statuses as of 10/27/2023) Resolved Problems Problem Noted Date Diagnosed Date [...] as of this encounter (statuses as of 10/27/2023) Immunizations Name Administration Dates Next Due Pneumococcal [...] of this encounter Progress Notes * Love Kulkarni RP - 10/27/2023 2:42 PM EDT [facility] [phone] Pt remains admitted. Spoke to - potential d/c to home in next 2 days. [facility] will follow up. Love Kulkarni Rph, Pharm.D. Clinical Pharmacist [facility] ([facility]) (formerly Telepharmacy) [phone] 10/27/2023,2:55 PM documented in this encounter Plan of Treatment Upcoming Encounters Date Type Department Care Team (Late st Contact Info) Description 10/29/2023 6:45 AM EDT Anticoagulation Pharmacy Call Center [address] [place] [address] [facility] [address] [place] [address] Health Maintenance Due Date Last Done Comments [...] this encounter Medical Devices Implanted Type Area Range Management Specialist Device Identifier Shelf Expiration Date Model / Serial / Lot Acetabular Clusterhole Shell48 - [id number] Implanted:Qty: 1 on 05/08/2022 by Nicolás Han MD at OR [facility] Left: Hip JORDYN : ORTHOPAEDICS 08/23/2023 702-04-48D / / [id number] Hip Hd Nk Alumina Mod D 36/ 5 - [id number] Implanted:Qty: 1 on 05/08/2022 by Nicolás Han MD at [facility] Left: Hip JORDYN : ORTHOPAEDICS 01/29/2025 6570-0-036 / / [id number] Implant Stem Hip Colr Std 4 - [id number] Implanted:Qty: 1 on 05/08/2022 by Nicolás Han MD at [facility] Left: Hip JORDYN : ORTHOPAEDICS 03/06/2027 7716-2424 / / [id number] Trident Acetabular X3 0 36 D - [id number] Implanted:Qty: 1 on 05/08/2022 by Nicolás Han MD at OR [facility] Left: Hip JORDYN : ORTHOPAEDICS 723-00-36D / / [id number] Cath Cv Lumen Single 5fr - [id number] Implanted:Qty: 1 on 07/20/[address] [facility] CR BARD : PERIPHERAL VASCULAR [id number] 07/08/2025 6248795 / / [id number] Cath Dual 6fr Line Pwr [id number] - [id number] Implanted:Qty: 1 on 07/20/[address] [facility] CR BARD : PERIPHERAL VASCULAR [id number] 07/08/2025 [id number] / / [id number] Duraclip 11mm Repositionable - [id number] Implanted:Qty: 1 on 01/24/2023 by Surendra Kemp, DO at OR [facility] CONMED OLEG [id number] / / Duraclip 11mm Repositionable - [id number] Implanted:Qty: 1 on 01/24/2023 by Surendra Kemp, DO at OR [facility] CONMED OLEG [id number] / / documented as of this encounter [...] the patient have Health Care Power of Incendiary Powder Mixer? No Full Code 08/13/2022 2:07 AM 08/28/2022 [...] the patient have Health Care Power of Incendiary Powder Mixer? No Care Teams Trimmer Buffing Wheel Relationship Specialty Start Date End Date Nena Richardson DO [address] [place] [address] PCP - General Cardiovascular Medicine 09/15/23 documented as of this encounter
--- OUTSIDE RECORDS SUMMARY | 2024-02-25 23:44 | External Medical Summary | Summary of Care ---
Author Name Unknown Organization [facility] Address [address] [place] [address] Phone [phone] Care Team Providers Care Refiner Operator Name Role Phone Nena Richardson Primary Care Provider Reason for Visit * Reason Comments Dosage Adjustment Via Phone (anticoag Cl inic) Encounter Details Date Type Department Care Team (Latest Contact Info) Description 11/01/2023 6:45 AM EDT Anticoagulation Pharmacy Call Center [address] [place] [address] [facility] [address] [place] [address] Atrial fibrillation, unspecified type (HCC)* Allergies Active [...] as of this encounter (statuses as of 11/01/2023) Medications Medication Sig Dispensed Refills Start Date [...] as of this encounter (statuses as of 11/01/2023) Active Problems Problem Noted Date Diagnosed Date [...] as of this encounter (statuses as of 11/01/2023) Resolved Problems Problem Noted Date Diagnosed Date [...] as of this encounter (statuses as of 11/01/2023) Immunizations Name Administration Dates Next Due Pneumococcal [...] this encounter Progress Notes * Love Kulkarni RPh - 11/01/2023 3:57 PM EDT Date/Time Type Contact Phone/Fax 11/01/2023 03:58 PM EDT by Love Kulkarni RPh Outgoing Dilma Hogan (Self) Remove Left Message Called to follow up regarding [facility] discharge. Pt was in process of being discharged Friand couldn't talk. Pt said she was given dosing in discharge summary. Advised pt to check INR with home machine tomorrow. Love Kulkarni Rph, Pharm.D. Clinical Pharmacist Centralized Clinical Pharmacy Services (CCPS) (formerly Telepharmacy) [phone] 11/01/2023,4:06 PM documented in this encounter Plan of Treatment Upcoming Encounters Date Type Department Care Team (Late st Contact Info) Description 11/02/2023 6:15 PM EDT Anticoagulation Pharmacy Call Center [address] [place] [address] [facility], [facility] [address] [place] [address] Health Maintenance Due Date Last Done Comments [...] this encounter Medical Devices Implanted Type Area Set Staff Fitter Device Identifier Shelf Expiration Date Model / Serial / Lot Acetabular Clusterhole Shell48 - [id number] Implanted:Qty: 1 on 05/08/2022 by Nicolás Han MD at OR [facility] Left: Hip JORDYN : ORTHOPAEDICS 08/23/2023 702-04-48D / / [id number] Hip Hd Nk Alumina Mod D 36/ 5 - [id number] Implanted:Qty: 1 on 05/08/2022 by Nicolás Han MD at [facility] Left: Hip JORDYN : ORTHOPAEDICS 01/29/2025 6570-0-036 / / [id number] Implant Stem Hip Colr Std 4 - [id number] Implanted:Qty: 1 on 05/08/2022 by Nicolás Han MD at [facility] Left: Hip JORDYN : ORTHOPAEDICS 03/06/2027 6685-5680 / / [id number] Trident Acetabular X3 0 36 D - [id number] Implanted:Qty: 1 on 05/08/2022 by Nicolás Han MD at [facility] Left: Hip JORDYN : ORTHOPAEDICS 723-00-36D / / [id number] Cath Cv Lumen Single 5fr - [id number] Implanted:Qty: 1 on 07/20/2022 at [facility] BARD : PERIPHERAL VASCULAR [id number] 07/08/2025 [id number] / / [id number] Cath Dual 6fr Line Pwr [id number] - [id number] Implanted:Qty: 1 on 07/20/2022 at [facility] BARD : PERIPHERAL VASCULAR [id number] 07/08/2025 [id number] / / [id number] Duraclip 11mm Repositionable - [id number] Implanted:Qty: 1 on 01/24/2023 by Surendra Kemp DO at [place] [facility] FlowCardiaMED OLEG [id number] / / Duraclip 11mm Repositionable - [id number] Implanted:Qty: 1 on 01/24/2023 by Surendra Kemp DO at [place] [facility] FlowCardia[employer] OLEG [id number] / / documented as of this encounter [...] the patient have Health Care Power of School Bus Operator? No Full Code 08/13/2022 2:07 AM [...] the patient have Health Care Power of School Bus Operator? No Care Teams Refiner Operator Relationship Specialty Start Date End Date Nena Richardson DO [address] [place] [address] PCP - General Cardiovascular Medicine 09/15/23 documented as of this encounter
--- OUTSIDE RECORDS SUMMARY | 2024-02-25 23:44 | External Medical Summary | Summary of Care ---
Author Name Unknown Organization [facility] Address [address] [place] [facility] [place] [address] Phone [phone] Care Team Providers Care Data Center Engineer Name Role Phone Nena Richardson Primary Care Provider Reason for Visit * Reason Comments Dosage Adjustment Via Phone (anticoag Cl inic) Encounter Details Date Type Department Care Team (Latest Contact Info) Description 11/02/2023 6:15 PM EDT Anticoagulation Pharmacy Call Center [address] [place] [address] [facility] [address] [place] [address] Atrial fibrillation, unspecified type (HCC)* Allergies Active [...] this encounter Progress Notes * Love Kulkarni [facility] - 11/02/2023 2:21 PM EDT Images from the original note were not included. Medication Therapy Disease Management - Anticoagulation Patient: Dilma Hogan | : 1960 Subjective Contacts Type Contact Phone/Fax 11/02/2023 02:22 PM EDT Phone (Outgoing) Dilma Hogan (Self) [phone] (M) Left Message Patient-Reported Symptoms: Objective Current Warfarin Dose As of 11/02/2023 Warfarin maintenance plan: 2 mg (1 mg x 2) every day INR Result As of 11/02/2023 INR goal: 2.5-3.5 INR used for dosin.9 (11/02/2023) Assessment & Plan Warfarin Plan As of 11/02/2023 Full warfarin instructions: 11/01: Hold; 11/02: 1 mg; Otherwise 2 mg every day Next INR check: 11/09/2023 Repeat PT/INR in 1 week(s) Weekly dose: not changed- recent d/c from [facility]. [facility] has been unable to reach pt to confirm if anything changed at discharge. Advised to call us back if any changes made. Additional Dosing Information: Description Home machine - weekly checks 09/24/23 - pt in the process of establishing with pcp/cardio in [facility] Love Kulkarni [facility] Clinical Pharmacist 11/02/2023, 2:22 PM documented in this encounter Plan of [...] this encounter Medical Devices Implanted Type Area Manager Trading Device Identifier Shelf Expiration Date Model / Serial / Lot Acetabular Clusterhole Shell48 - [id number] Implanted:Qty: 1 on 05/08/2022 by Nicolás Han MD at OR [facility] Left: Hip JORDYN : ORTHOPAEDICS 08/23/2023 702-04-48D / / [id number] Hip Hd Nk Alumina Mod D 36/ 5 - [id number] Implanted:Qty: 1 on 05/08/2022 by Nicolás Han MD at OR [facility] Left: Hip JORDYN : ORTHOPAEDICS 01/29/2025 6570-0-036 / / [id number] Implant Stem Hip Colr Std 4 - [id number] Implanted:Qty: 1 on 05/08/2022 by Nicolás Han MD at OR [facility] Left: Hip JORDYN : ORTHOPAEDICS 03/06/2027 3270-3912 / / [id number] Trident Acetabular X3 0 36 D - [id number] Implanted:Qty: 1 on 05/08/2022 by Nicolás Han MD at OR [facility] Left: Hip JORDYN : ORTHOPAEDICS 723-00-36D / / [id number] Cath Cv Lumen Single 5fr - [id number] Implanted:Qty: 1 on 07/20/2022 at [facility] BARD : PERIPHERAL VASCULAR [id number] 07/08/2025 [id number] / / [id number] Cath Dual 6fr Line Pwr [id number] - [id number] Implanted:Qty: 1 on 07/20/2022 at [facility] BARD : PERIPHERAL VASCULAR [id number] 07/08/2025 [id number] / / [id number] Duraclip 11mm Repositionable - [id number] Implanted:Qty: 1 on 01/24/2023 by Surendra Kemp, at OR [facility] Nexus DxMED OLEG [id number] / / Duraclip 11mm Repositionable - [id number] Implanted:Qty: 1 on 01/24/2023 by Surendra Kemp, DO at OR [facility] CONMED OLEG [id number] / / documented as of this encounter Procedures Procedure Name Priority Date/Time Associated Diagnosis Comments OUTSIDE LAB-PT/INR Routine 11/02/2023 documented in this encounter Results * OUTSIDE LAB-PT/INR (11/02/2023) INR-OUTSIDE LAB 4.9 HOME FINGERSTIC K DEVICE History Per Patient [...] the patient have Health Care Power of Med Admin? No Full Code 08/13/2022 2:07 AM 08/28/2022 [...] the patient have Health Care Power of Med Admin? No Care Teams Data Center Engineer Relationship Specialty Start Date End Date Nena Richardson DO [address] [place] [address] PCP - General Cardiovascular Medicine 09/15/23 documented as of this encounter"
--- OUTSIDE RECORDS SUMMARY | 2024-02-25 23:44 | External Medical Summary | Summary of Care ---
Author Name Unknown Organization [facility] Address [address] [facility] [place] [address] Phone [phone] Care Team Providers Care Sports Complex Attendant Name Role Phone Nena Richardson Primary Care Provider Encounter Details Date Type Department Care Team (Late st Contact Info) Description 09/23/2023 Result Scan Unspecified Department Love Kulkarni, [facility] [address] [place] [address] <No scans attached> Allergies Active Allergy Reactions [...] as of this encounter (statuses as of 09/23/2023) Medications Medication Sig Dispensed Refills Start Date [...] as of this encounter (statuses as of 09/23/2023) Active Problems Problem Noted Date Diagnosed Date [...] as of this encounter (statuses as of 09/23/2023) Resolved Problems Problem Noted Date Diagnosed Date [...] as of this encounter (statuses as of 09/23/2023) Immunizations Name Administration Dates Next Due Pneumococcal Polysaccharide PPV23 (Pneumovax) Seasonal Influenza, PF, 6 M & above, IM , (FluLaval or Fluzone) 06/17/2021 documented as of this encounter Social History Tobacco Use Types Packs/Day Years Used Date Smoking Tobacco: Former Cigarettes 0.1 30 Q uit: 04/11/2022 Smokeless Tobacco: Never Comments:10 cigarettes per [...] Care Team (Late st Contact Info) Description 09/24/2023 6:30 AM EST Anticoagulation Pharmacy Call Center [address] [place] [address] [facility] [address] [place] [id number] Health Maintenance Due Date Last Done Comments HIV Screening 1976 DTaP,Tdap,and Td Vaccines (1 - Tdap) 1980 Pap Smear 1982 Cervical Cancer Screening 1991 HPV/Co-Test 1991 Mammogram 2001 Colonoscopy 2006 Fecal Occult Blood Test 2006 Sigmoidoscopy 2006 Pneumococcal Vaccine: Pediatrics (0 to 5 Years) and At-Risk Patients (6 to 64 Years) (2 - PCV) 09/25/2010 09/25/2009 Zoster Vaccines (1 of 2) 2011 Depression, Most Recent Scor e >= 10 (will fire each visit until score < 10) 11/16/2015 11/15/2015 Hepatitis B (1 of 3 - Risk 3-dose series) 2021 COVID-19 Vaccine (4 - 2022-2 4 season) [...] this encounter Medical Devices Implanted Type Area Applications Sales Consultant Device Identifier Shelf Expiration Date Model / Serial / Lot Trident Acetabular X3 0 36 D - [id number] Implanted:Qty: 1 on 05/08/2022 by Nicolás Han MD at OR [facility] Left: Hip JORDYN : ORTHOPAEDICS 723-00-36D / / [id number] Cath Dual 6fr Line Pwr [id number] - [id number] Implanted:Qty: 1 on 07/20/2022 at [facility] BARD : PERIPHERAL VASCULAR [id number] 07/08/2025 [id number] / / [id number] Duraclip 11mm Repositionable - [id number] Implanted:Qty: 1 on 01/24/2023 by Surendra Kemp, DO [place] [facility] Zoodig [id number] / / documented as of this encounter Procedures Procedure Name Priority Date/Time Associated Diagnosis Comments OUTSIDE LAB RESULTS 09/23/2023 documented in this encounter Results * OUTSIDE LAB RESULTS (09/23/2023) 09/23/2023 Love Kulkarni [facility] LABORATORY documented in this encounter Advance [...] the patient have Health Care Power of Sports Complex Attendant? No Full Code 08/13/2022 2:07 AM 08/28/2022 [...] the patient have Health Care Power of Sports Complex Attendant? No Care Teams Sports Complex Attendant Relationship Specialty Start Date End Date Nena Richardson DO [address] [place] [address] PCP - General Cardiovascular Medicine 09/15/23 documented as of this encounter
--- OUTSIDE RECORDS SUMMARY | 2024-02-25 23:44 | External Medical Summary | Summary of Care ---
Author Name Unknown Organization [facility] Address [address] [facility] [place] [address] Phone [phone] Care Team Providers Care Terra Cotta Roofer Helper Name Role Phone Nena Richardson Primary Care Provider Reason for Visit * Reason Comments Dosage Adjustment Via Phone (anticoag Cl inic) Encounter Details Date Type Department Care Team (Latest Contact Info) Description 10/29/2023 6:45 AM EDT Anticoagulation Pharmacy Call Center [address] [place] [address] [facility] [address] [place] [address] Atrial fibrillation, unspecified type (HCC)* Allergies Active [...] as of this encounter (statuses as of 10/29/2023) Medications Medication Sig Dispensed Refills Start Date [...] as of this encounter (statuses as of 10/29/2023) Active Problems Problem Noted Date Diagnosed Date [...] as of this encounter (statuses as of 10/29/2023) Resolved Problems Problem Noted Date Diagnosed Date [...] as of this encounter (statuses as of 10/29/2023) Immunizations Name Administration Dates Next Due Pneumococcal [...] Progress Notes * Love Kulkarni RPh - 10/29/2023 11:49 AM EDT Images from the original note were not included. [facility] [phone] Spoke with nurse. Pt planned to discharge to home later today. Last INR 1.9 Dose 10/27: 4mg, 10/26: 3mg, 10/25: no dose listed Spoke to pt and she is in process of being discharged and couldn't talk. Confirmed she was provideddosing for the weekend by the hospital Will follow up with patient on Wednesday. Love Kulkarni Rph, Pharm.D. Clinical Pharmacist Centralized Clinical Pharmacy Services (CCPS) (formerly Telepharmacy) [phone] 10/29/2023,3:31 PM documented in this encounter Plan of Treatment Upcoming Encounters Date Type Department Care Team (Late st Contact Info) Description 11/01/2023 6:45 AM EDT Anticoagulation Pharmacy Call Center [address] [place] [address] [facility] [address] [place] [address] Health Maintenance Due Date Last Done Comments [...] this encounter Medical Devices Implanted Type Area Online Marketing Analyst Device Identifier Shelf Expiration Date Model / Serial / Lot Acetabular Clusterhole Shell48 - [id number] Implanted:Qty: 1 on 05/08/2022 by Nicolás Han MD at OR [facility] Left: Hip JORDYN : ORTHOPAEDICS 08/23/2023 702-04-48D / / [id number] Hip Hd Nk Alumina Mod D 36/ 5 - [id number] Implanted:Qty: 1 on 05/08/2022 by Nicolás Han MD at OR [facility] Left: Hip JORDYN : ORTHOPAEDICS 01/29/2025 6570-0-036 / / [id number] Implant Stem Hip Colr Std 4 - [id number] Implanted:Qty: 1 on 05/08/2022 by Nicolás Han MD at [facility] Left: Hip JORDYN : ORTHOPAEDICS 03/06/2027 3699-4779 / / [id number] Trident Acetabular X3 0 36 D - [id number] Implanted:Qty: 1 on 05/08/2022 by Nicolás Han MD at OR [facility] Left: Hip JORDYN : ORTHOPAEDICS 723-00-36D / / [id number] Cath Cv Lumen Single 5fr - [id number] Implanted:Qty: 1 on 07/20/2022 at [facility] BARD : PERIPHERAL VASCULAR [id number] 07/08/2025 [id number] / / [id number] Cath Dual 6fr Line Pwr [id number] - [id number] Implanted:Qty: 1 on 07/20/2022 at [facility] BARD : PERIPHERAL VASCULAR [id number] 07/08/2025 [id number] / / [id number] Duraclip 11mm Repositionable - [id number] Implanted:Qty: 1 on 01/24/2023 by Surendra Kemp, DO at OR [facility] CONMED OLEG [id number] / / Duraclip 11mm Repositionable - [id number] Implanted:Qty: 1 on 01/24/2023 by Surendra Kemp, DO at OR [facility] CONMED OLEG [id number] / / documented as of this encounter [...] the patient have Health Care Power of Power Manager? No Full Code 08/13/2022 2:07 AM [...] the patient have Health Care Power of Power Manager? No Care Teams Terra Cotta Roofer Helper Relationship Specialty Start Date End Date Nena Richardson DO [address] [place] [address] PCP - General Cardiovascular Medicine 09/15/23 documented as of this encounter
--- OUTSIDE RECORDS SUMMARY | 2024-02-25 23:44 | External Medical Summary | Summary of Care ---
Author Name Unknown Organization [facility] Address [address] [place] [place] [place] [address] Phone [phone] Care Team Providers Care Senior Product Consultant Name Role Phone Nena Richardson Primary Care Provider Reason for Visit * Reason Comments Dosage Adjustment Via Phone (anticoag Cl inic) Encounter Details Date Type Department Care Team (Latest Contact Info) Description 10/25/2023 6:45 AM EDT Anticoagulation Pharmacy Call Center [address] [place] [address] [facility] [address] [place] [address] Atrial fibrillation, unspecified type (HCC)* Allergies Active [...] as of this encounter (statuses as of 10/25/2023) Medications Medication Sig Dispensed Refills Start Date [...] as of this encounter (statuses as of 10/25/2023) Active Problems Problem Noted Date Diagnosed Date [...] as of this encounter (statuses as of 10/25/2023) Resolved Problems Problem Noted Date Diagnosed Date [...] as of this encounter (statuses as of 10/25/2023) Immunizations Name Administration Dates Next Due Pneumococcal [...] Progress Notes * Love Kulkarni RP - 10/25/2023 3:53 PM EDT Date/Time Type Contact Phone/Fax 10/25/2023 03:56 PM EDT by Love Kulkarni RPh Outgoing Dilma Hogan (Self) Remove Spoke to Patient Pt remains admitted to [facility]. Pt anticipates being admitted for a few more days. [facility] will continue to follow up for discharge plans. Love Kulkarni Rph, Pharm.D. Clinical Pharmacist Centralized Clinical Pharmacy Services (CCPS) (formerly Telepharmacy) [phone] 10/25/2023,3:59 PM documented in this encounter Plan of Treatment Upcoming Encounters Date Type Department Care Team (Late st Contact Info) Description 10/26/2023 6:30 AM EDT Anticoagulation Pharmacy Call Center [address] [address] [facility] [address] [place] [address] 10/27/2023 6:45 AM EDT Anticoagulation Pharmacy Call Center [address] [place] [address] [facility] [address] [place] [address] Health Maintenance Due Date Last Done Comments [...] this encounter Medical Devices Implanted Type Area Spinning Lathe Operator Hydraulic Device Identifier Shelf Expiration Date Model / Serial / Lot Acetabular Clusterhole Shell48 - [id number] Implanted:Qty: 1 on 05/08/2022 by Nicolás Han MD at OR [facility] Left: Hip JORDYN : ORTHOPAEDICS 08/23/2023 702-04-48D / / [id number] Hip Hd Nk Alumina Mod D 36/ 5 - [id number] Implanted:Qty: 1 on 05/08/2022 by Nicolás Han MD at OR [facility] Left: Hip JORDYN : ORTHOPAEDICS 01/29/2025 6570-0-036 / / [id number] Implant Stem Hip Colr Std 4 - [id number] Implanted:Qty: 1 on 05/08/2022 by Nicolás Han MD at OR [facility] Left: Hip JORDYN : ORTHOPAEDICS 03/06/2027 8439-7124 / / [id number] Trident Acetabular X3 0 36 D - [id number] Implanted:Qty: 1 on 05/08/2022 by Nicolás Han MD at OR [facility] Left: Hip JORDYN : ORTHOPAEDICS 723-00-36D / / [id number] Cath Cv Lumen Single 5fr - [id number] Implanted:Qty: 1 on 07/20/2022 at [facility] BARD : PERIPHERAL VASCULAR [id number] 07/08/2025 [id number] / / [id number] Cath Dual 6fr Line Pwr [id number] - [id number] Implanted:Qty: 1 on 07/20/2022 at [facility] CR BARD : PERIPHERAL VASCULAR [id number] 07/08/2025 [id number] / / [id number] Duraclip 11mm Repositionable - [id number] Implanted:Qty: 1 on 01/24/2023 by Surendra Kemp, DO at OR [facility] [employer]lepius FarmsMED OLEG [id number] / / Duraclip 11mm Repositionable - [id number] Implanted:Qty: 1 on 01/24/2023 by Surendra Kemp DO at OR [facility] [employer]le[employer]us FarmsMED OLEG [id number] / / documented as of this encounter [...] the patient have Health Care Power of Director Of Patient Care? No Full Code 08/13/2022 2:07 AM 08/28/2022 [...] the patient have Health Care Power of Director Of Patient Care? No Care Teams Senior Product Consultant Relationship Specialty Start Date End Date Nena Richardson DO [address] [place] [address] PCP - General Cardiovascular Medicine 09/15/23 documented as of this encounter
--- OUTSIDE RECORDS SUMMARY | 2024-02-25 23:44 | External Medical Summary | Summary of Care ---
Author Name Unknown Organization [facility] Address [address] , [place] Care Team Providers Care Production Team Leader Name Role Phone Nena Richardson DO Primary Care Provider Reason for Visit * Reason Onset Date Comments FYI 09/15/2023 Encounter Details Date Type Department Care Team (Late st Contact Info) Description 09/15/2023 Telephone Pharmacy, [facility] [address] [facility] [place] [address] [facility] [address] [facility] [place] [address] FYI (/) Allergies Active Allergy Reactions Criticality Noted Date [...] as of this encounter (statuses as of 09/15/2023) Medications Medication Sig Dispensed Refills Start Date [...] as of this encounter (statuses as of 09/15/2023) Active Problems Problem Noted Date Diagnosed Date [...] as of this encounter (statuses as of 09/15/2023) Resolved Problems Problem Noted Date Diagnosed Date [...] as of this encounter (statuses as of 09/15/2023) Immunizations Name Administration Dates Next Due Pneumococcal [...] Notes * Telephone Encounter - Love Kulkarni [facility] - 09/15/2023 11:40 AM EST Date/Time Type Contact Phone/Fax 09/15/2023 11:39 AM EST by Love Kulkarni RPh Outgoing Dilma Hogan (Self) Remove Left Message Called to follow up to see who will manage going forward. [facility] previously managing under [facility] CARDs.Advised if pt no longer follow with [facility] providers we will transfer care to new provider. Pt to call back with provider information. Love Kulkarni Rph, Pharm.D. Clinical Pharmacist Centralized Clinical Pharmacy Services (CCPS) (formerly Telepharmacy) [phone] 09/15/2023,11:42 AM * Telephone Encounter - Tonya Garnett, anode rebuilder - 09/15/2023 9:35 AM EST Caller's name: Dilma Preferred call back number(OFFICE NUMBER FOR ): [phone] Reason for call: patient calling to update her address and her PCP, states she no longer sees any [facility] doctors. Tonya Garnett MA Clinical Laboratory Technician I Centralized Clinical Pharmacy Services (CCPS) (formerly Telepharmacy) [address] [facility] [address] [place] [address] ext [phone] documented in this encounter Plan of Treatment Upcoming Encounters Date Type Department Care Team (Late st Contact Info) Description 09/22/2023 6:30 AM EST Anticoagulation Pharmacy Call Center [address] [facility] [place] [address] [facility] [address] [facility] [place] [address] Health Maintenance Due Date Last Done Comments [...] this encounter Medical Devices Implanted Type Area County Director Welfare Device Identifier Shelf Expiration Date Model / Serial / Lot Trident Acetabular X3 0 36 D - [id number] Implanted:Qty: 1 on 05/08/2022 by Nicolás Han MD at OR [facility] Left: Hip JORDYN : ORTHOPAEDICS 723-00-36D / / [id number] Cath Dual 6fr Line Pwr [id number] - [id number] Implanted:Qty: 1 on 07/20/2022 at [facility] BARD : PERIPHERAL VASCULAR [id number] 07/08/2025 [id number] / / [id number] Duraclip 11mm Repositionable - [id number] Implanted:Qty: 1 on 01/24/2023 by Surendra Kemp DO [place] [facility] [employer] [id number] / / documented as of this encounter [...] the patient have Health Care Power of Heel Trimmer? No Full Code 08/13/2022 2:07 AM 08/28/2022 [...] the patient have Health Care Power of Heel Trimmer? No Care Teams Production Team Leader Relationship Specialty Start Date End Date Nena Richardson DO [address] [place] [address] PCP - General Cardiovascular Medicine 09/15/23 documented as of this encounter
--- NOTE | 2024-02-25 23:58 | Emergency Department Note ---
Impression & Plan Hyponatremia, Congestive heart failure, Anemia, Bilateral leg edema ED Provider Note Name: SHEREEN FRAGA Age: 63 Sex: Female Arrives Via: Ambulance Informant: Patient ED Provider: Michael Garza MD Chief Complaint: Leg swelling Impression: As per impressions above Medical Decision Makin-year-old female with complex past medical history including congestive heart failure, aortic valve replacement, a flutter/fib, diabetes, chronic back pain amongst multiple other comorbidities. Patient arrives with primary complaint of bilateral leg swelling but admits she is currently homeless without any of her medications. Patient reports having been in the [facility] the last 2 months for evaluation of possible heart transplant for which she was declined. [facility] however did not like it thus left AMA and has nowhere else to go. Patient has none of her medications she has multiple severe risk factors and workup here reveals acute hyponatremia, acute anemia amongst other abnormal laboratory findings. Patient denies any bleeding or black or bloody stool. She has been on heparin up until this morning which point she was advised to restart her Coumadin though has not had a dose of that yet. Renal function is also a bit off. I discussed this with the hospitalist and given her multiple, Plex issues we will hold off on any Lasix at this time until they evaluate. Patient is without any chest pain, shortness of breath or other symptoms requiring emergent transfusion. Triage/Nursing Notes reviewed by Me External Chart Review by me: Discharge summary from January 21, 2023 reviewed by me for episode of hospitalization due to GI bleed and anemia. Extensive antibody issues with blood noted at that time. Differential:Infection, dehydration, metabolic abnormality, hypo/hyperglycemia, electrolyte disturbance, anemia, hypoxia, cardiac sources, intracerebral event, toxicologic, neurologic, as well as other pathologies. Vital Signs: reviewed and remarkable for no significant abnormalities Labs:ED labs Reviewed by me and remarkable for anemia, hyponatremia, mild elevation creatinine, Imagin view chest x-ray ordered however patient refuses to have this done EKG:As per my interpretation. Indication weakness heart failure. Ventricularly paced at 70 bpm no ischemia appreciated. QTc of 557. When compared EKG of January 17, 2023 no significant change appreciated. Cardiac/Tele Monitoring: Cardiac Monitoring: An Order was placed for continuous cardiac monitoring. The monitor shows a rate of 70 with a ventricular paced rhythm. Consults:Dr. Jennings of the [facility] service discussed case and will bring in for further management. Social Determinants of Health: Homelessness Plan: Disposition:Hospitalization. Condition: Good History of Present Illness: 63-year-old female arrives for evaluation of complex medical condition. Patient has been hospitalized and the [facility] for the last 2 months for evaluation of her congestive heart failure. She states she had been on a heparin drip with Lasix, Aldactone and extensive testing. This morning she was discharged with plan to be admitted to nursing facility in the [facility]. Patient notes when she got there she did not like it so she left AMA. Patient admits she has nowhere else to go. She believes her sister has gotten rid of her house. Patient states she has not had any of her medications since yesterday. She does admit that her lower legs have swelled some since discharge at [place] this morning. She relates this to not having her Lasix in 2 days as well as sitting in a car. Denies any specific chest pain, shortness of breath, fevers, chills, abdominal pain, vomiting, lightheadedness, syncope or other concerning signs or symptoms. Patient is complaining of low back pain. She states has been ongoing since she was in the [facility] due to sitting in a bed for 2 months. She admits that she was getting IV Dilaudid with good control of her pain during that stay. She is requesting something for the pain and is agreeable to Tylenol at this time. Past Medical History:See Below Home Medications:See Below Allergies:See Below Vitals:Blood Pressure: 101/63, Pulse 70, RR 18, T 36.8C, O2 95% on RA Physical Exam: GENERAL: Patient is chronically unwell appearing and in mild distress. RESPIRATORY: No dyspnea. Clear to auscultation and equal bilaterally. CARDIOVASCULAR: Regular rate and rhythm.No murmur appreciated. GASTROINTESTINAL: Abdomen soft, non-tender, no peritonitis. EXTREMITIES: Normal motion all extremities, no cyanosis, moderate lower leg pitting edema. NEUROLOGIC: Alert and oriented. No focal neurologic deficits appreciated SKIN: No rash, no jaundice, no diaphoresis. PSYCH: Appropriate GCS: 15 ED Course: Times/Reassessments: Patient stable lying in bed in no distress Mihcael Garza MD Past Med/Surg History Problem List (Updated 02/26/24 @ 04:36 by Michael Garza MD) Bilateral leg edema (Acute) Anemia (Acute) Congestive heart failure (Acute) Hyponatremia (Acute) Discharge planning issues Chronic lower back pain Hypothyroidism Congestive heart failure Severe anemia H/O mechanical aortic valve replacement GI bleed (Acute) Skin tear Right ventricular dysfunction Wound infection (Acute) History of revision of total replacement of left hip joint Lower extremity edema Encounter for pre-operative examination Sepsis DVT prophylaxis Chronic cor pulmonale Anemia Leukopenia Cervical lymphadenopathy Elevated INR (Acute) Fever (Acute) Acute hypotension (Acute) Acute cholecystitis (Acute) Supratherapeutic INR (Acute) Mood disorder (Acute) Medication reaction (Acute) Hypokalemia (Acute) Hypokalemia (Acute) Hypokalemia (Acute) Hyperkalemia (Acute) Fluid overload (Acute) Epistaxis (Acute) Cervical radiculopathy (Acute) Cervical radiculopathy (Acute) Cervical radiculopathy (Acute) Atrial flutter (Acute) Hypokalemia (Acute) Rheumatic heart disease (Chronic) Pinched nerve (Acute) Muscle cramping (Acute) Dehydration (Acute) Muscle cramping (Acute) History of permanent cardiac pacemaker placement 2019 - placed due to complete heart block interrogated february 2020 Atrial fibrillation DM w/o complication type II high BSG in am, but normal A1C. Takes no medications. Chronic left hip pain (Chronic) S/P ORIF (open reduction internal fixation) fracture Left hip July 2019 Chronic anticoagulation (Chronic) Avascular necrosis of bone of left hip Depression Acute exacerbation of chronic low back pain Chronic SI joint pain Medical History (Updated 02/26/24 @ 04:36 by Michael Garza MD) Gallstones Anticoagulant-induced bleeding Acute blood loss anemia Pulmonary hypertension Tricuspid stenosis Rheumatic cardiomyopathy Elevated LFTs Hyponatremia Hyperkalemia Supratherapeutic INR Hematoma of left thigh Anemia Elevated LDH Post traumatic stress disorder Diverticular disease Hernia X2 Right-sided heart failure Acute kidney injury Chronic cor pulmonale Tricuspid stenosis, acquired due to prior tricuspid valve repair Mitral stenosis Pacemaker Surgical History (Updated 03/03/23 @ 00:07 by Chad Pinto) History of heart valve replacement H/O tricuspid valve repair S/P MVR (mitral valve replacement) History of endoscopic sinus surgery ATTEMPTED TO CAUTERIZE 10/6, UNABLE, PATIENT IN PAIN AND BLEEDING History of cardiac cath 1983, 2003, NO STENTS ROUTINE History of placement of ear tubes History of tubal ligation H/O tricuspid valve repair initial - 1985; repeat TV repair 2004 History of cardiac radiofrequency ablation for a.fib - 2003 Dequincy teeth removed H/O tympanostomy History of bilateral tubal ligation H/O mitral valve replacement 1985, initial MVR at [facility] [address] [facility] [employer] Mechanical valve; INR goal 2.5-3.5 H/O tricuspid valve repair Family History Mother , 60s Gastric cancer Father , age 65 Lung cancer Social History Smoking Status: Never smoker Tobacco Type: Cigarettes packs per day: 0.5; Cigarettes Per Day: 10; Second Hand Exposure: No; Do You Dip or Chew Tobacco: No; Hx Alcohol Use: Yes Alcohol type: wine Hx Substance Use: No Preferred Language: Ecuadorean Communication Ability: Effective Visual Impairment: Limited Hearing Ability: Normal Metal Stamper Required: No Beliefs That Will Affect Care: None marital status: marital status details: 1 son Current Living Situation: Alone Current Living Situation Comment: Patient lives alone in a second story apartment current occupational status: employed 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 [employer] Feels Safe at Home: Yes Diet Comment: Mediterranean caffeine: Yes during the past year weight has: increased > 10 lbs Assistive Devices: Cane and Walker Allergies Allergies Allergy/AdvReac Type Severity Reaction Status Date / Time adhesive Allergy Intermediate rash Verified 01/21/23 17:49 fluoxetine Allergy Intermediate Rash Verified 01/21/23 17:49 mushroom Allergy Intermediate EYES Verified 01/21/23 17:49 SWELLED hydrocodone Allergy Unknown ON MED LIST Verified 01/21/23 17:49 levofloxacin [From Levaquin] Allergy Unknown ON MED LIST Verified 01/21/23 17:49 azithromycin AdvReac Severe Tachycardia Verified 01/21/23 17:49 [From Zithromax Z-Anton] /A-FIB Estrogens AdvReac Severe CHF Verified 01/21/23 17:49 lorazepam AdvReac Severe mental Verified 01/21/23 17:49 status change prednisone AdvReac Severe LOW BP D/T Verified 01/21/23 17:49 FLUID SHIFT acetaminophen [From Tylenol] AdvReac Intermediate D/T LIVER Verified 01/21/23 17:49 ISSUES aspirin AdvReac Intermediate CONTRAINDICATED Verified 01/21/23 17:49 WITH COUMADIN PER PT. cephalexin AdvReac Intermediate Tachycardia Verified 01/21/23 17:49 codeine AdvReac Intermediate Shakiness Verified 01/21/23 17:49 Corticosteroids AdvReac Intermediate HYPOTENSION Verified 01/21/23 17:49 (Glucocorticoids) doxycycline AdvReac Intermediate LEGS SWELL Verified 01/21/23 17:49 fluocinonide AdvReac Intermediate Tachycardia Verified 01/21/23 17:49 NSAIDS (Non-Steroidal AdvReac Intermediate HYPOTENSION Verified 01/21/23 17:49 Anti-Inflamma zolpidem [From Ambien] AdvReac Intermediate MENTAL Verified 01/21/23 17:49 STATUS CHANGE Anti-Depressents Allergy Unknown SEE COMMENT Uncoded 01/21/23 17:49 Home Meds Home Medications Medication Instructions Recorded Confirmed warfarin 1 mg tablet (Jantoven) 2 mg PO 3XWK 07/03/22 01/30/23 warfarin 1 mg tablet (Jantoven) 4 mg PO 4XWK 07/03/22 01/30/23 torsemide 100 mg tablet 100 mg PO BID 10/05/22 01/30/23 coenzyme Q10 100 mg capsule 100 mg PO DAILY 01/21/23 01/30/23 (CoQ-10) ferrous sulfate 325 mg (65 mg 325 mg PO DIRECTED PRN 01/21/23 01/30/23 iron) tablet,delayed release NEEDED PER MED LIST hydroxyzine HCl 10 mg tablet 10 mg PO Q8H PRN Anxiety 01/21/23 01/30/23 magnesium oxide 400 mg (241.3 mg 400 mg PO BID 01/21/23 01/30/23 magnesium) tablet metoprolol succinate 25 mg 25 mg PO QAM 01/21/23 01/30/23 tablet,extended release 24 hr mirtazapine 7.5 mg tablet 22.5 mg PO HS 01/21/23 01/30/23 multivitamin-iron 9 mg-folic acid 1 tab PO QAM 01/21/23 01/30/23 400 mcg-calcium and minerals tablet (Thera M Plus (ferrous fumarate)) oxycodone 5 mg tablet 5 mg PO Q6H PRN Pain 01/21/23 01/30/23 pantoprazole 20 mg tablet,delayed 20 mg PO DAILYBB 01/21/23 01/30/23 release Multi Vitamin 1 mg PO DAILY 01/30/23 01/30/23 potassium chloride 10 mEq 50 meq PO BID 01/30/23 01/30/23 tablet,extended release Previous Rx's Medication Instructions Recorded oxycodone 5 mg tablet 5 mg PO Q6 PRN pain #12 tabs 02/16/23 Results & Data (ED) Vital Signs Vital Signs - 24 hr 02/25/24 23:41 02/26/24 01:41 Temperature 36.8 C Temperature Source Oral Pulse Rate 70 Pulse Rate [Finger] 86 Respiratory Rate 18 17 Respiratory Effort / Characteristics Non-Labored Spontaneous Non-Labored Spontaneous Respiratory Depth Normal Normal Respiratory Pattern Regular Regular Blood Pressure 101/63 Blood Pressure [Right Arm] 105/87 Blood Pressure Mean 75 Blood Pressure Mean [Right Arm] 93 Pulse Oximetry 95 95 Oxygen Delivery Method Room Air Room Air Sepsis Recent Fever Within 48 Hours No Sepsis New/Unexplained Change in Mental Status N/A Sepsis Action Taken by Nursing No Action Required Laboratory Data 02/26/24 00:16 02/26/24 00:16 Lab Results 02/26/24 02/26/24 02/26/24 Range/Units 00:10 00:16 02:02 WBC 5.34 (4.8-10.8) K/ul RBC 2.20 L (4.20-5.40) M/uL Hgb 7.0 L (12.0-16.0) g/dl Hct 21.7 L (37.0-47.0) % MCV 98.6 (80.0-100.0) fL MCH 31.8 (25.0-34.0) pg MCHC 32.3 (32.0-36.0) g/dL RDW Std Deviation 75.0 H (36.4-46.3) fL RDW Coeff of Dunia 21.2 H (11.5-14.5) % Plt Count 234 (130-400) K/uL MPV 9.2 L (9.4-12.4) fL Immature Gran % (Auto) 0.9 % Neut % (Auto) 80.0 % Lymph % (Auto) 3.6 % Boyle % (Auto) 10.9 % Eos % (Auto) 3.7 % Baso % (Auto) 0.9 % Neut # (Auto) 4.27 (1.40-6.50) K/uL Lymph # (Auto) 0.19 L (1.20-3.40) K/uL Boyle # (Auto) 0.58 (0.11-0.59) K/uL Eos # (Auto) 0.20 (0.00-0.50) K/uL Baso # (Auto) 0.05 (0.00-0.20) K/uL Immature Gran # (Auto) 0.05 (0.01-0.20) K/uL Polychromasia 1+ Anisocytosis Present PT 11.2 (9.0-12.0) Seconds INR 1.0 (0.9-1.1) APTT 31 (21-31) Seconds PTT Ratio 1.2 Sodium 125 L (136-145) mmol/L Potassium 3.9 (3.5-5.1) mmol/L Chloride 93 L (98-107) mmol/L Carbon Dioxide 23 (21-32) mmol/L Anion Gap 9 (3-11) BUN 70 H (6-23) mg/dl Creatinine 1.25 H (0.6-1.2) mg/dl Est Cr Clr Drug Dosing 42.0 ml/min Est GFR ( Amer) 53.4 ml/min Est GFR (Non-Af Amer) 46.1 ml/min BUN/Creatinine Ratio 56.0 H (10-20) Glucose 124 H (70-99(Fasting)) mg/dl Osmolality 289 (280-300) mOsm/kg Calcium 9.4 (8.6-10.3) mg/dl Phosphorus 4.4 (2.5-4.9) mg/dl Magnesium 2.2 (1.7-2.4) mg/dl Total Bilirubin 1.1 H (0.2-1.0) mg/dl Direct Bilirubin 0.3 H (0-0.2) mg/dl AST 32 (13-39) U/L ALT 19 (7-52) U/L Alkaline Phosphatase 181 H (34-104) U/L Troponin I High Sens 32.3 H 32.6 H (0-14) pg/ml B-Natriuretic Peptide 586 H (0-100) pg/ml Total Protein 7.4 (6.0-8.3) gm/dl Albumin 3.8 (3.4-5.0) gm/dl Administered Medications Discontinued Medications Acetaminophen (Acetaminophen 500 Mg Tab) 1,000 mg PO NOW STA Stop: 02/25/24 23:56 Last Admin: 02/26/24 00:07 Dose: 1,000 mg Documented By: TEVIN Torsemide (Torsemide 100 Mg Tab) 100 mg PO ONE ONE Stop: 02/26/24 01:55 Last Admin: 02/26/24 04:10 Dose: Not Given Documented By: KLS Discharge Plan Visit Data Chief Complaint: Edema To Extremity Stated Complaint: FLUID RETENTION, EDEMA BILAT LOWER EXTREMETIES ED Provider: Michael Gazra Discharge Problem: Hyponatremia, Congestive heart failure, Anemia, Bilateral leg edema Patient Disposition: Admitted As Inpatient Discharge Instructions Interventions: ED Discharge Assessment Last Done: 02/26/24 04:14 Discharge Problem: Congestive heart failure Qualifiers: Heart failure type: unspecified Heart failure chronicity: chronic Qualified Code(s): I50.9 - Heart failure, unspecified Anemia Qualifiers: Anemia type: other cause Other causes of anemia: other cause, not classified Q ualified Code(s): D64.89 - Other specified anemias
[2024-02-26] MEDS: ACETAMINOPHEN 500 MG TAB PO STA (00:07)
[2024-02-26 00:30] LABS: Basophils # (auto) 0.05 K/uL (0.00-0.20); Basophils % (auto) 0.9 %; Eosinophils % (auto) 3.7 %; Hematocrit (blood only) 21.7 % (37.0-47.0); Immature Granulocytes # (auto) 0.05 K/uL (0.01-0.20); Immature Granulocytes % (auto) 0.9 %; Lymphocytes # (auto) 0.19 K/uL (1.20-3.40); Lymphocytes % (auto) 3.6 %; Mean Corpuscular Hemoglobin 31.8 pg (25.0-34.0); Mean Corpuscular Hgb Conc 32.3 g/dL (32.0-36.0); Mean Corpuscular Volume 98.6 fL (80.0-100.0); Mean Platelet Volume 9.2 fL (9.4-12.4); Monocytes # (auto) 0.58 K/uL (0.11-0.59); Monocytes % (auto) 10.9 %; Neutrophils # (auto) 4.27 K/uL (1.40-6.50); Platelet Count 234 K/uL (130-400); RDW Coefficient of Variation 21.2 % (11.5-14.5); White Blood Count 5.34 K/ul (4.8-10.8)
[2024-02-26 00:51] LABS: Albumin Level 3.8 gm/dl (3.4-5.0); Bilirubin Direct 0.3 mg/dl (0-0.2); Bilirubin,Total 1.1 mg/dl (0.2-1.0); Calcium 9.4 mg/dl (8.6-10.3); Est GFR (African American) 53.4 ml/min; Est GFR (Non-African American) 46.1 ml/min; Magnesium 2.2 mg/dl (1.7-2.4); Phosphorus 4.4 mg/dl (2.5-4.9); Potassium 3.9 mmol/L (3.5-5.1); Total Protein 7.4 gm/dl (6.0-8.3)
[2024-02-26 00:55] LABS: Troponin I High Sensitivity 32.3 pg/ml (0-14)
[2024-02-26 01:04] LABS: Partial Thromboplastin Ratio 1.2; Partial Thromboplastin Time 31 Seconds (21-31); Prothrombin Time 11.2 Seconds (9.0-12.0)
--- NOTE | 2024-02-26 01:11 | History & Physical Report ---
Date of Service February 26, 2024 Assessment & Plan (1) Congestive heart failure: Plan: -Elevated BNP of 586. -Try to order chest x-ray, patient declined x-ray tech from taking chest x-ray. -Only able to view some records from patient portal of patient, on torsemide 100 mg twice daily. Continue at this time. -Continue on potassium chloride. -Unable to see discharge summary from [facility], may be delayed due to systemwide outage of EMR. Recommend to follow-up in the morning to see if discharge summary is able to get obtained from [facility]. Son has discharge paperwork, however patient wishes for us not to call or speak to the son overnight. Readdress in the a.m. (2) Anemia: Plan: -Hemoglobin 7.0 at time of admission. -Has had GI bleeds due to supratherapeutic INR in the past. -No signs of bleeding at this time. -Will monitor PT/INR closely. -Continue following hemoglobin with serial labs. -May consider further workup. (3) Hyponatremia: Plan: -Sodium of 125 at time of admission. -Will order serum osmole and urine osmole. (4) Atrial fibrillation: (5) Chronic lower back pain: Plan: -Discharge medication list showed hydromorphone 2 mg every 4 hours. -Continue at this time. -PTOT ordered. (6) Hypothyroidism: Plan: -Discharge meds from [facility] shows levothyroxine 25 mcg. Patient has no previous history of hypothyroidism in the past. -TSH in the a.m. -Will continue levothyroxine 25 mcg at this time and should reassess once able to get [facility] notes. (7) H/O mechanical aortic valve replacement: Plan: -On Coumadin though was not on her discharge meds from [facility]. -Will continue Coumadin at this time, monitor PT/INR closely. (8) Discharge planning issues: Plan: -Patient left [place] nursing AMA, went to son's house and was immediately brought to the hospital by EMS. -Son is currently in possession of discharge paperwork from [facility] though patient does not want us to reach out to son. -Currently homeless. (9) History of permanent cardiac pacemaker placement: History of Present Illness Chief Complaint: Congestive failure, anemia, hyponatremia Primary Care Provider: Fabby Whitmore Patient is a 63-year-old female with past medical history of A-fib status post multiple cardioversions, pacer in place, heart failure with preserved ejection fraction, rheumatic cardiomyopathy, aortic valve replacement with a mechanical valve, and bioprosthetic tricuspid valve who presents to the hospital for evaluation. She was at the [facility] for 2 months for congestive heart failure. She was discharged on 02/24 in the morning and was going to a nursing facility in [place]. Once patient arrived at the facility in [place] she left AMA and went to her son's house. Patient came in on EMS from son's house. Son stated to EMS that he does not feel comfortable with her living there and he is unable to take care of her. Patient does complain of lower bilateral lower extremity edema. She denies any chest pain, shortness of breath, or abdominal pain. She is complaining of lower back pain and sciatic pain and states that she was getting Dilaudid in the [facility] with good control. Patient does have [facility] portal and was able to show me the medications that were prescribed after her [facility] hospital stay. She was prescribed hydromorphone, levothyroxine, Zofran, Protonix, torsemide, potassium chloride, DuoNebs, and robaxin. There was no discharge summary or notes to review on the portal. Patient states that she was on the heart transplant list but she is not a candidate. She also states that the doctor at the [facility] told her she had " 3-5 days to live" and that he stopped her Coumadin " so that my valve will clot up and I will ". She also states that she has nowhere to go and that someone sold her house when she was gone. Allergies Allergy/AdvReac Type Severity Reaction Status Date / Time adhesive Allergy Intermediate rash Verified 01/21/23 17:49 fluoxetine Allergy Intermediate Rash Verified 01/21/23 17:49 mushroom Allergy Intermediate EYES Verified 01/21/23 17:49 SWELLED hydrocodone Allergy Unknown ON MED LIST Verified 01/21/23 17:49 levofloxacin [From Levaquin] Allergy Unknown ON MED LIST Verified 01/21/23 17:49 azithromycin AdvReac Severe Tachycardia Verified 01/21/23 17:49 [From Zithromax Z-Anton] /A-FIB Estrogens AdvReac Severe CHF Verified 01/21/23 17:49 lorazepam AdvReac Severe mental Verified 01/21/23 17:49 status change prednisone AdvReac Severe LOW BP D/T Verified 01/21/23 17:49 FLUID SHIFT acetaminophen [From Tylenol] AdvReac Intermediate D/T LIVER Verified 01/21/23 17:49 ISSUES aspirin AdvReac Intermediate CONTRAINDICATED Verified 01/21/23 17:49 WITH COUMADIN PER PT. cephalexin AdvReac Intermediate Tachycardia Verified 01/21/23 17:49 codeine AdvReac Intermediate Shakiness Verified 01/21/23 17:49 Corticosteroids AdvReac Intermediate HYPOTENSION Verified 01/21/23 17:49 (Glucocorticoids) doxycycline AdvReac Intermediate LEGS SWELL Verified 01/21/23 17:49 fluocinonide AdvReac Intermediate Tachycardia Verified 01/21/23 17:49 NSAIDS (Non-Steroidal AdvReac Intermediate HYPOTENSION Verified 01/21/23 17:49 Anti-Inflamma zolpidem [From Ambien] AdvReac Intermediate MENTAL Verified 01/21/23 17:49 STATUS CHANGE Anti-Depressents Allergy Unknown SEE COMMENT Uncoded 01/21/23 17:49 Home Medications Medication Instructions Recorded Confirmed Type warfarin 1 mg tablet (Jantoven) 2 mg PO 3XWK 07/03/22 01/30/23 History warfarin 1 mg tablet (Jantoven) 4 mg PO 4XWK 07/03/22 01/30/23 History torsemide 100 mg tablet 100 mg PO BID 10/05/22 01/30/23 History coenzyme Q10 100 mg capsule 100 mg PO DAILY 01/21/23 01/30/23 History (CoQ-10) ferrous sulfate 325 mg (65 mg 325 mg PO DIRECTED PRN 01/21/23 01/30/23 History iron) tablet,delayed release NEEDED PER MED LIST hydroxyzine HCl 10 mg tablet 10 mg PO Q8H PRN Anxiety 01/21/23 01/30/23 History magnesium oxide 400 mg (241.3 mg 400 mg PO BID 01/21/23 01/30/23 History magnesium) tablet metoprolol succinate 25 mg 25 mg PO QAM 01/21/23 01/30/23 History tablet,extended release 24 hr mirtazapine 7.5 mg tablet 22.5 mg PO HS 01/21/23 01/30/23 History multivitamin-iron 9 mg-folic acid 1 tab PO QAM 01/21/23 01/30/23 History 400 mcg-calcium and minerals tablet (Thera M Plus (ferrous fumarate)) oxycodone 5 mg tablet 5 mg PO Q6H PRN Pain 01/21/23 01/30/23 History pantoprazole 20 mg tablet,delayed 20 mg PO DAILYBB 01/21/23 01/30/23 History release Multi Vitamin 1 mg PO DAILY 01/30/23 01/30/23 History potassium chloride 10 mEq 50 meq PO BID 01/30/23 01/30/23 History tablet,extended release oxycodone 5 mg tablet 5 mg PO Q6 PRN pain #12 tabs 02/16/23 Rx Past Med/Surg History Problem List (Updated 02/26/24 @ 04:36 by Michael Garza MD) Bilateral leg edema (Acute) Anemia (Acute) Congestive heart failure (Acute) Hyponatremia (Acute) Discharge planning issues Chronic lower back pain Hypothyroidism Congestive heart failure Severe anemia H/O mechanical aortic valve replacement GI bleed (Acute) Skin tear Right ventricular dysfunction Wound infection (Acute) History of revision of total replacement of left hip joint Lower extremity edema Encounter for pre-operative examination Sepsis DVT prophylaxis Chronic cor pulmonale Anemia Leukopenia Cervical lymphadenopathy Elevated INR (Acute) Fever (Acute) Acute hypotension (Acute) Acute cholecystitis (Acute) Supratherapeutic INR (Acute) Mood disorder (Acute) Medication reaction (Acute) Hypokalemia (Acute) Hypokalemia (Acute) Hypokalemia (Acute) Hyperkalemia (Acute) Fluid overload (Acute) Epistaxis (Acute) Cervical radiculopathy (Acute) Cervical radiculopathy (Acute) Cervical radiculopathy (Acute) Atrial flutter (Acute) Hypokalemia (Acute) Rheumatic heart disease (Chronic) Pinched nerve (Acute) Muscle cramping (Acute) Dehydration (Acute) Muscle cramping (Acute) History of permanent cardiac pacemaker placement 2019 - placed due to complete heart block interrogated february 2020 Atrial fibrillation DM w/o complication type II high BSG in am, but normal A1C. Takes no medications. Chronic left hip pain (Chronic) S/P ORIF (open reduction internal fixation) fracture Left hip July 2019 Chronic anticoagulation (Chronic) Avascular necrosis of bone of left hip Depression Acute exacerbation of chronic low back pain Chronic SI joint pain Medical History (Updated 02/26/24 @ 04:36 by Michael Garza MD) Gallstones Anticoagulant-induced bleeding Acute blood loss anemia Pulmonary hypertension Tricuspid stenosis Rheumatic cardiomyopathy Elevated LFTs Hyponatremia Hyperkalemia Supratherapeutic INR Hematoma of left thigh Anemia Elevated LDH Post traumatic stress disorder Diverticular disease Hernia X2 Right-sided heart failure Acute kidney injury Chronic cor pulmonale Tricuspid stenosis, acquired due to prior tricuspid valve repair Mitral stenosis Pacemaker Surgical History (Updated 03/03/23 @ 00:07 by Chad Pinto) History of heart valve replacement H/O tricuspid valve repair S/P MVR (mitral valve replacement) History of endoscopic sinus surgery ATTEMPTED TO CAUTERIZE 05/14, UNABLE, PATIENT IN PAIN AND BLEEDING History of cardiac cath 1983, 2003, NO STENTS ROUTINE History of placement of ear tubes History of tubal ligation H/O tricuspid valve repair initial - 1985; repeat TV repair 2004 History of cardiac radiofrequency ablation for a.fib - 2003 [place] teeth removed H/O tympanostomy History of bilateral tubal ligation H/O mitral valve replacement 1985, initial MVR at [facility] [address] [facility] Mechanical valve; INR goal 2.5-3.5 H/O tricuspid valve repair Family History Mother , 60s Gastric cancer Father , age 65 Lung cancer Social History Smoking Status: Current some day smoker Tobacco Type: Cigarettes packs per day: 0.5; Cigarettes Per Day: 10; Second Hand Exposure: No; Do You Dip or Chew Tobacco: No; Tobacco Cessation Education Requested by Patient: No Hx Alcohol Use: Yes Alcohol type: beer Hx Substance Use: No Preferred Language: Albanian Communication Ability: Effective Visual Impairment: Limited Hearing Ability: Normal Relaster Required: No Beliefs That Will Affect Care: None marital status: marital status details: 1 son Current Living Situation: Alone Current Living Situation Comment: Patient lives alone in a second story apartment current occupational status: employed 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 [employer] Feels Safe at Home: Yes Safety Concerns: Feels Safe At This Time Diet Comment: Mediterranean caffeine: Yes during the past year weight has: increased > 10 lbs Assistive Devices: Walker Review of Systems Review of Systems: All systems reviewed & are unremarkable except as noted in Subjective Physical Exam Physical Exam: Constitutional: Chronically unwell, moderate distress HEENT: NCAT, no conjunctival injection CV: regular rhythm, no murmur appreciated, extremities well-perfused, bilateral lower extremity edema Resp: CTABL, no wheezes/rales/rhonchi appreciated, no increased work of breathing GI: soft, nondistended, nontender, BS normoactive MSK: no gross deformities appreciated Skin: warm, dry, no rash appreciated Neuro: alert, oriented, no focal neurologic deficit appreciated Results & Data Results & Data Vital Signs (Past 12 Hours) Vital Signs Temp Pulse Resp BP Pulse Ox O2 Del Method 02/25/24 23:41 36.8 C 70 18 101/63 95 Room Air Supervising Physician Co-Signing Physician Notes Attending addendum: I have physically seen this patient, have supervised the medical residents activities, and agree with the H&P unless as otherwise noted. 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 Patient refused to allow chest x-ray to be done Continue torsemide 100 mg twice daily and potassium chloride 50 mEq twice daily Follow serial CBC with differential, basic metabolic panel, magnesium levels Patient is off of anticoagulant this time due to history of GI bleeds Anemia- Hemoglobin 7.9 on admission History of GI bleeds due to supratherapeutic INR in the past Hemoccult stools Consider further workup as patient will allow Type and screen Hyponatremia- Sodium 125 on admission Combined with BNP of 586 with suggest fluid overload Will continue torsemide as noted, if patient allows a full workup and treatment, can consider IV diuretics Long-term planning issues- Patient had been at [facility] reportedly for few months, and was then transferred to a nursing facility in [place], which she promptly left AMA after arrival Patient returned to her son's house, and he called EMS, who brought her to the hospital immediately at this time Will need to contact son in the a.m. for patient's [facility] paperwork department exact medication profile and a basic care for the patient Patient currently is homeless, will therefore get social media director involved (2) Anemia Anemia type: other cause Other causes of anemia: other cause, not classified Qualified Code(s): D64.89 - Other specified anemias (4) Atrial fibrillation Atrial fibrillation type: permanent Qualified Code(s): I48.2 - Chronic atrial fibrillation
[2024-02-26 01:20] LABS: Anisocytosis Present; Polychromasia 1+
[2024-02-26] MEDS: TORSEMIDE 100 MG TAB PO ONE (04:10)
[2024-02-26] MEDS ORDERED: HYDROmorphone HCL 2 MG TAB PO PRN (04:13)
[2024-02-26] MEDS ORDERED: ONDANSETRON INJ 2 MG/ML 2 ML VIAL IV PRN (04:13)
[2024-02-26] MEDS: ACETAMINOPHEN 1,000 MG/100 ML VIAL IV STA (06:58)
[2024-02-26] MEDS: LEVOTHYROXINE SODIUM 25 MCG TABLET PO SCH (06:58)
[2024-02-26 08:45] LABS: Hematocrit (blood only) 20.1 % (37.0-47.0); Hemoglobin 6.4 g/dl (12.0-16.0); Mean Corpuscular Hemoglobin 31.7 pg (25.0-34.0); Mean Corpuscular Hgb Conc 31.8 g/dL (32.0-36.0); Mean Corpuscular Volume 99.5 fL (80.0-100.0); Mean Platelet Volume 9.3 fL (9.4-12.4); Platelet Count 222 K/uL (130-400); RDW Coefficient of Variation 20.7 % (11.5-14.5); RDW Standard Deviation 73.8 fL (36.4-46.3); Red Blood Count 2.02 M/uL (4.20-5.40); White Blood Count 4.87 K/ul (4.8-10.8)
[2024-02-26] MEDS ORDERED: SODIUM CHLORIDE 0.9% 250 ML IV PRN (08:47)
[2024-02-26] MEDS: POTASSIUM CHLORIDE 10 MEQ TABCR PO SCH (08:54)
[2024-02-26] MEDS: PANTOprazole 40 MG TAB PO SCH (08:54)
[2024-02-26 08:56] LABS: Albumin Globulin Ratio 1.1 (0.9-2); Albumin Level 3.5 gm/dl (3.4-5.0); Calcium 8.8 mg/dl (8.6-10.3); Creatinine Clr Calc Pharmacy 48.6 ml/min; Est GFR (African American) 63.7 ml/min; Globulin 3.3 gm/dl (2.5-4.0); Potassium 3.9 mmol/L (3.5-5.1); Total Protein 6.8 gm/dl (6.0-8.3)
[2024-02-26] MEDS: TORSEMIDE 100 MG TAB PO SCH (08:59)
[2024-02-26 09:10] LABS: Basophils # (auto) 0.03 K/uL (0.00-0.20); Basophils % (auto) 0.6 %; Eosinophils # (auto) 0.24 K/uL (0.00-0.50); Eosinophils % (auto) 4.9 %; Immature Granulocytes # (auto) 0.06 K/uL (0.01-0.20); Immature Granulocytes % (auto) 1.2 %; Lymphocytes # (auto) 0.18 K/uL (1.20-3.40); Lymphocytes % (auto) 3.7 %; Macrocytosis Present; Monocytes # (auto) 0.66 K/uL (0.11-0.59); Monocytes % (auto) 13.6 %; Polychromasia 1+
[2024-02-26 09:11] LABS: Thyroid Stimulating Hormone 3.6 uIu/ml (0.300-4.500)
[2024-02-26 09:15] LABS: INR 1.1 (0.9-1.1); Prothrombin Time 11.4 Seconds (9.0-12.0)
[2024-02-26 14:44] LABS: Hematocrit (blood only) 20.1 % (37.0-47.0); Hemoglobin 6.4 g/dl (12.0-16.0)
--- NOTE | 2024-02-26 15:25 | CT Scan Report ---
CT abd pelvis wo con CLINICAL HISTORY: abd distension TECHNIQUE: Helical axial images of the abdomen and pelvis were obtained. Automated dose lowering tech niques and/or adjustment according to patient size were utilized for this exam. This exam was perfor med without intravenous contrast. CT DOSE: 810.54 mGy.cm COMPARISON: Comparison is made to CT abdomen pelvis 01/22/2023 FINDINGS: Lower chest: Bibasilar atelectasis versus scarring is seen. Liver: Mild hepatomegaly is seen. Gallbladder and biliary tree: Cholelithiasis is seen without evidence of cholecystitis. No intra- or extrahepatic biliary ductal dilation. Pancreas: Unremarkable, no focal lesions. Spleen: Unremarkable. Adrenals: Unremarkable. Kidneys and ureters: Unremarkable. Bladder: Unremarkable. Reproductive organs: Unremarkable. Bowel: Diverticulosis is seen without evidence of diverticulitis. Lymph nodes Retroperitoneal: Subcentimeter lymph nodes are noted. Pelvic: Unremarkable. Mesenteric: Unremarkable. Peritoneum: Mild ascites is seen. Vessels: Unremarkable. Abdominal wall: A fat-containing umbilical hernia is seen. Prominent intramuscular hematoma is seen i n the left iliopsoas measuring up to 8.3 x 5.5 cm. Bones: Mild degenerative changes are seen. IMPRESSION: Intramuscular hematoma in the left iliopsoas. Stable mild ascites, similar to prior exam. ACT 112: Negative or not required by law. Electronically signed by: Anthony Poe M.D. 02/26/2024 3:22 PM
[2024-02-26 15:35] LABS: Appearance Urine Clear (Clear); Bilirubin Urine Negative (Negative); Blood Urine Negative (Negative); Color Urine Yellow; Glucose Urine UA Negative (Negative); Ketones Urine Negative (Negative); Leukocyte Esterase Urine Negative (Negative); Nitrite Urine Negative (Negative); Protein Urine Negative (Negative); Specific Gravity Urine 1.013 (1.000-1.030); Urobilinogen Urine Negative (Negative); pH Urine 5.5 (4.5-7.5)
[2024-02-26] MEDS ORDERED: WARFARIN SOD 4 MG TAB PO SCH (16:00)
--- NOTE | 2024-02-26 16:05 | Communication Note ---
Date of Service: February 26, 2024 Please refer to the H&P dictated earlier this morning for details of presentation on admission. In brief, this is a 63-year-old female with multiple medical problems including chronic atrial fibrillation status post multiple cardioversions, rheumatic heart disease with mechanical aortic valve replacement and bioprosthetic tricuspid valve on Coumadin, complete heart block status post pacemaker placement, diabetes mellitus type 2, HFpEF, history of GI bleed due to Dieulafoy lesion. She was recently discharged from [facility] on 02/24 and was going to a nursing facility in [place]. On arrival to the facility in [place], she left AMA to stay with her son. The son sent her to the emergency room as he was not comfortable with her living there. She was admitted primarily for social needs. Her only complaint on admission was lower back pain and sciatic pain. On admission, she had made statements like, "the doctor at [place] stopped the Coumadin so my valve would clot up and I would ". No records from [facility] yet. I was not able to connect with her son. The number she gave me to reach the son, has no voicemail capabilities. This morning, her blood pressure was low although she was asymptomatic. Her hemoglobin was critically low at 6.3. She was ordered 1 unit of blood transfusion, however due to antibodies, blood is not available yet. I ordered a CT abdomen and found out that she has an intramuscular hematoma in the left iliopsoas. That explains her pain and anemia. Coumadin is being held. Check H&H every 8 hours. Blood transfusion ordered. She has low blood pressure at baseline and thus her hypotension is not alarming specially when she is completely asymptomatic. She also tested positive for stool guaiac. Will start Protonix IV and consult GI. Her INR is 1.1 which tells me that her Coumadin has been on hold for quite some time. Will continue to hold it. She is aware that in the absence of anticoagulation, there is risk of thrombosis related to her mechanical valve. Hold torsemide in the setting of borderline hypotension and acute blood loss anemia. She does not appear to be overtly volume overloaded.
[2024-02-26] MEDS: PANTOprazole 40 MG in SYRINGE 0 ML IV SCH (20:18)
[2024-02-26] MEDS: ACETAMINOPHEN 1,000 MG/100 ML VIAL IV PRN (21:18)
[2024-02-26] MEDS: LIDOCAINE 5% 1 PATCH TD STA (21:19)
[2024-02-26 21:51] LABS: Hematocrit (blood only) 20.5 % (37.0-47.0); Hemoglobin 6.6 g/dl (12.0-16.0)
--- NOTE | 2024-02-27 05:25 | Billing Data ---
Date of Service February 27, 2024 Coding Level of Care Code 81375 INT INP/OBS CARE
[2024-02-27 07:18] LABS: Magnesium 2.3 mg/dl (1.7-2.4)
[2024-02-27 07:21] LABS: Prothrombin Time 11.2 Seconds (9.0-12.0)
[2024-02-27 07:25] LABS: Hematocrit (blood only) 23.1 % (37.0-47.0); Hemoglobin 7.6 g/dl (12.0-16.0)
[2024-02-27 08:24] LABS: BUN Creatinine Ratio 59.6 (10-20); Calcium 9.4 mg/dl (8.6-10.3); Creatinine Clr Calc Pharmacy 55.5 ml/min; Est GFR (Non-African American) 54.4 ml/min; Potassium 4.7 mmol/L (3.5-5.1)
--- NOTE | 2024-02-27 08:42 | Gastrointestinal Consultation ---
Date of Consultation February 27, 2024 Assessment & Plan (1) Anemia: I agree that her anemia is likely related to her hematoma. She is not having clinical bleeding from her gut and heme (+) stools do not indicate a GI bleed. I think the issues with her anticoagulation and her mechanical valve need to be sorted out. I do think she needs elective colonoscopy at some point but there are a lot of other issues that need to be settled. She can have her procedure done as an outpatient. History of Present Illness Reason for Consultation: anemia Attending Physician: Petrona Rosas MD History of Present Illness 63 year old female with multiple cardiac issues with mechanical cardiac valve. She was admitted with leg pain and anemia and was found to have a iliopsoas hematoma and was also found to have heme (+) stools. She is supposed to be on warfarin but that was stopped at the end of December. She denies stomach issues except for intermittent "leaky gut". She does not see blood in her stool nor does she have melenic stools. She denies heartburn or indigestion. She says her last colonoscopy was at age 51 and her cardiac surgical issues have put off her getting another one. Allergies Allergy/AdvReac Type Severity Reaction Status Date / Time adhesive Allergy Intermediate rash Verified 01/21/23 17:49 fluoxetine Allergy Intermediate Rash Verified 01/21/23 17:49 mushroom Allergy Intermediate EYES Verified 01/21/23 17:49 SWELLED hydrocodone Allergy Unknown ON MED LIST Verified 01/21/23 17:49 levofloxacin [From Levaquin] Allergy Unknown ON MED LIST Verified 01/21/23 17:49 azithromycin AdvReac Severe Tachycardia Verified 01/21/23 17:49 [From Zithromax Z-Anton] /A-FIB Estrogens AdvReac Severe CHF Verified 01/21/23 17:49 lorazepam AdvReac Severe mental Verified 01/21/23 17:49 status change prednisone AdvReac Severe LOW BP D/T Verified 01/21/23 17:49 FLUID SHIFT acetaminophen [From Tylenol] AdvReac Intermediate D/T LIVER Verified 01/21/23 17:49 ISSUES aspirin AdvReac Intermediate CONTRAINDICATED Verified 01/21/23 17:49 WITH COUMADIN PER PT. cephalexin AdvReac Intermediate Tachycardia Verified 01/21/23 17:49 codeine AdvReac Intermediate Shakiness Verified 01/21/23 17:49 Corticosteroids AdvReac Intermediate HYPOTENSION Verified 01/21/23 17:49 (Glucocorticoids) doxycycline AdvReac Intermediate LEGS SWELL Verified 01/21/23 17:49 fluocinonide AdvReac Intermediate Tachycardia Verified 01/21/23 17:49 NSAIDS (Non-Steroidal AdvReac Intermediate HYPOTENSION Verified 01/21/23 17:49 Anti-Inflamma zolpidem [From Ambien] AdvReac Intermediate MENTAL Verified 01/21/23 17:49 STATUS CHANGE Anti-Depressents Allergy Unknown SEE COMMENT Uncoded 01/21/23 17:49 Home Medications Medication Instructions Recorded Confirmed Type warfarin 1 mg tablet (Jantoven) 2 mg PO 3XWK 07/03/22 01/30/23 History warfarin 1 mg tablet (Jantoven) 4 mg PO 4XWK 07/03/22 01/30/23 History torsemide 100 mg tablet 100 mg PO BID 10/05/22 01/30/23 History coenzyme Q10 100 mg capsule 100 mg PO DAILY 01/21/23 01/30/23 History (CoQ-10) ferrous sulfate 325 mg (65 mg 325 mg PO DIRECTED PRN 01/21/23 01/30/23 History iron) tablet,delayed release NEEDED PER MED LIST hydroxyzine HCl 10 mg tablet 10 mg PO Q8H PRN Anxiety 01/21/23 01/30/23 History magnesium oxide 400 mg (241.3 mg 400 mg PO BID 01/21/23 01/30/23 History magnesium) tablet metoprolol succinate 25 mg 25 mg PO QAM 01/21/23 01/30/23 History tablet,extended release 24 hr mirtazapine 7.5 mg tablet 22.5 mg PO HS 01/21/23 01/30/23 History multivitamin-iron 9 mg-folic acid 1 tab PO QAM 01/21/23 01/30/23 History 400 mcg-calcium and minerals tablet (Thera M Plus (ferrous fumarate)) oxycodone 5 mg tablet 5 mg PO Q6H PRN Pain 01/21/23 01/30/23 History pantoprazole 20 mg tablet,delayed 20 mg PO DAILYBB 01/21/23 01/30/23 History release Multi Vitamin 1 mg PO DAILY 01/30/23 01/30/23 History potassium chloride 10 mEq 50 meq PO BID 01/30/23 01/30/23 History tablet,extended release oxycodone 5 mg tablet 5 mg PO Q6 PRN pain #12 tabs 02/16/23 Rx Patient History Medical History Gallstones Anticoagulant-induced bleeding Acute blood loss anemia Pulmonary hypertension Tricuspid stenosis Rheumatic cardiomyopathy Elevated LFTs Hyponatremia Hyperkalemia Supratherapeutic INR Hematoma of left thigh Anemia Elevated LDH Post traumatic stress disorder Diverticular disease Hernia X2 Right-sided heart failure Acute kidney injury Chronic cor pulmonale Tricuspid stenosis, acquired due to prior tricuspid valve repair Mitral stenosis Pacemaker Surgical History History of heart valve replacement H/O tricuspid valve repair S/P MVR (mitral valve replacement) History of endoscopic sinus surgery ATTEMPTED TO CAUTERIZE 05/14, UNABLE, PATIENT IN PAIN AND BLEEDING History of cardiac cath 1983, 2003, NO STENTS ROUTINE History of placement of ear tubes History of tubal ligation H/O tricuspid valve repair initial - 1985; repeat TV repair 2004 History of cardiac radiofrequency ablation for a.fib - 2003 [place] teeth removed H/O tympanostomy History of bilateral tubal ligation H/O mitral valve replacement 1985, initial MVR at [facility] [address] [facility] Mechanical valve; INR goal 2.5-3.5 H/O tricuspid valve repair Family History Mother , 60s Gastric cancer Father , age 65 Lung cancer Social History Smoking Status: Current some day smoker Tobacco Type: Cigarettes packs per day: 0.5; Cigarettes Per Day: 10; Second Hand Exposure: No; Do You Dip or Chew Tobacco: No; Tobacco Cessation Education Requested by Patient: No Hx Alcohol Use: Yes Alcohol type: beer Hx Substance Use: No Preferred Language: Croatian Communication Ability: Effective Visual Impairment: Limited Hearing Ability: Normal Activity Assistant Required: No Beliefs That Will Affect Care: None marital status: marital status details: 1 son Current Living Situation: Alone Current Living Situation Comment: Patient lives alone in a second story apartment current occupational status: employed 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 [employer] Feels Safe at Home: Yes Safety Concerns: Feels Safe At This Time Diet Comment: Mediterranean caffeine: Yes during the past year weight has: increased > 10 lbs Assistive Devices: Walker Review of Systems Review of Systems: All systems reviewed & are unremarkable except as noted in HPI & below Physical Exam Physical Exam: multiple ecchymoses over skin Constitutional: + ill appearing and + thin Neck: trachea midline, no thyromegaly Respiratory: normal respiratory effort, lungs clear to auscultation Cardiovascular: RRR, no murmur, no edema Gastrointestinal (Abdomen): normal bowel sounds, soft, nontender, no hepatosplenomegaly Results & Data Vital Signs (Past 12 Hours) Vital Signs Temp Pulse Pulse Resp BP BP Pulse Ox 02/27/24 08:03 02/27/24 07:28 36.7 C 70 18 103/63 97 02/27/24 06:29 74 02/27/24 05:00 02/27/24 02:19 36.3 C L 74 18 110/66 95 02/27/24 01:39 36.3 C L 71 18 111/63 95 02/27/24 00:39 36.4 C L 73 18 96/61 L 96 02/27/24 00:09 77 20 107/67 98 02/26/24 23:54 36.3 C L 70 20 92/50 L 98 02/26/24 23:35 36.5 C 71 20 87/39 L 95 02/26/24 23:06 70 02/26/24 22:07 36.7 C 70 18 102/54 L 97 O2 Del Method O2 Del Method 02/27/24 08:03 Room Air 02/27/24 07:28 Room Air 02/27/24 06:29 02/27/24 05:00 Room Air 02/27/24 02:19 02/27/24 01:39 02/27/24 00:39 02/27/24 00:09 02/26/24 23:54 02/26/24 23:35 02/26/24 23:06 02/26/24 22:07 Room Air Laboratory Results 02/27/24 02/26/24 02/26/24 Range/Units 06:35 Unknown 21:14 Hgb 7.6 L 6.6 L* (12.0-16.0) g/dl Hct 23.1 L 20.5 L* (37.0-47.0) % Immature Gran % (Auto) % Neut % (Auto) % Lymph % (Auto) % [place] % (Auto) % Eos % (Auto) % Baso % (Auto) % Neut # (Auto) (1.40-6.50) K/uL Lymph # (Auto) (1.20-3.40) K/uL [place] # (Auto) (0.11-0.59) K/uL Eos # (Auto) (0.00-0.50) K/uL Baso # (Auto) (0.00-0.20) K/uL Immature Gran # (Auto) (0.01-0.20) K/uL Polychromasia Macrocytosis PT 11.2 (9.0-12.0) Seconds INR 1.0 (0.9-1.1) Sodium 124 L (136-145) mmol/L Potassium 4.7 D (3.5-5.1) mmol/L Chloride 93 L (98-107) mmol/L Carbon Dioxide 21 (21-32) mmol/L Anion Gap 10 (3-11) BUN 65 H (6-23) mg/dl Creatinine 1.09 (0.6-1.2) mg/dl Est Cr Clr Drug Dosing 55.5 ml/min Est GFR ( Amer) 63.0 ml/min Est GFR (Non-Af Amer) 54.4 ml/min BUN/Creatinine Ratio 59.6 H (10-20) Glucose 109 H (70-99(Fasting)) mg/dl Calcium 9.4 (8.6-10.3) mg/dl Magnesium 2.3 (1.7-2.4) mg/dl TSH (0.300-4.500) uIu/ml Urine Color Yellow Urine Appearance Clear (Clear) Urine pH 5.5 (4.5-7.5) Ur Specific [place] 1.013 (1.000-1.030) Urine Protein Negative (Negative) Urine Glucose (UA) Negative (Negative) Urine Ketones Negative (Negative) Urine Blood Negative (Negative) Urine Nitrite Negative (Negative) Urine Bilirubin Negative (Negative) Urine Urobilinogen Negative (Negative) Ur Leukocyte Esterase Negative (Negative) Urine Osmolality 309 L (500-800) mOsm/kg Stool Occult Bld Scrn Positive A (Negative) Blood Type Antibody Screen Antibody Identification Antibody ID Referred Antibody ID Comment Crossmatch 02/26/24 02/26/24 02/26/24 Range/Units 13:17 11:37 09:13 Hgb 6.4 L* (12.0-16.0) g/dl Hct 20.1 L* (37.0-47.0) % Immature Gran % (Auto) % Neut % (Auto) % Lymph % (Auto) % [place] % (Auto) % Eos % (Auto) % Baso % (Auto) % Neut # (Auto) (1.40-6.50) K/uL Lymph # (Auto) (1.20-3.40) K/uL [place] # (Auto) (0.11-0.59) K/uL Eos # (Auto) (0.00-0.50) K/uL Baso # (Auto) (0.00-0.20) K/uL Immature Gran # (Auto) (0.01-0.20) K/uL Polychromasia Macrocytosis PT (9.0-12.0) Seconds INR (0.9-1.1) Sodium (136-145) mmol/L Potassium (3.5-5.1) mmol/L Chloride (98-107) mmol/L Carbon Dioxide (21-32) mmol/L Anion Gap (3-11) BUN (6-23) mg/dl Creatinine (0.6-1.2) mg/dl Est Cr Clr Drug Dosing ml/min Est GFR ( Amer) ml/min Est GFR (Non-Af Amer) ml/min BUN/Creatinine Ratio (10-20) Glucose (70-99(Fasting)) mg/dl Calcium (8.6-10.3) mg/dl Magnesium (1.7-2.4) mg/dl TSH (0.300-4.500) uIu/ml Urine Color Urine Appearance (Clear) Urine pH (4.5-7.5) Ur Specific [place] (1.000-1.030) Urine Protein (Negative) Urine Glucose (UA) (Negative) Urine Ketones (Negative) Urine Blood (Negative) Urine Nitrite (Negative) Urine Bilirubin (Negative) Urine Urobilinogen (Negative) Ur Leukocyte Esterase (Negative) Urine Osmolality (500-800) mOsm/kg Stool Occult Bld Scrn (Negative) Blood Type Antibody Screen Antibody Identification Anti-S Antibody ID Referred Pending Antibody ID Comment Cancelled Crossmatch See Detail 02/26/24 02/26/24 02/26/24 Range/Units 09:13 09:13 09:13 Hgb (12.0-16.0) g/dl Hct (37.0-47.0) % Immature Gran % (Auto) % Neut % (Auto) % Lymph % (Auto) % [place] % (Auto) % Eos % (Auto) % Baso % (Auto) % Neut # (Auto) (1.40-6.50) K/uL Lymph # (Auto) (1.20-3.40) K/uL [place] # (Auto) (0.11-0.59) K/uL Eos # (Auto) (0.00-0.50) K/uL Baso # (Auto) (0.00-0.20) K/uL Immature Gran # (Auto) (0.01-0.20) K/uL Polychromasia Macrocytosis PT (9.0-12.0) Seconds INR (0.9-1.1) Sodium (136-145) mmol/L Potassium (3.5-5.1) mmol/L Chloride (98-107) mmol/L Carbon Dioxide (21-32) mmol/L Anion Gap (3-11) BUN (6-23) mg/dl Creatinine (0.6-1.2) mg/dl Est Cr Clr Drug Dosing ml/min Est GFR ( Amer) ml/min Est GFR (Non-Af Amer) ml/min BUN/Creatinine Ratio (10-20) Glucose (70-99(Fasting)) mg/dl Calcium (8.6-10.3) mg/dl Magnesium (1.7-2.4) mg/dl TSH (0.300-4.500) uIu/ml Urine Color Urine Appearance (Clear) Urine pH (4.5-7.5) Ur Specific [place] (1.000-1.030) Urine Protein (Negative) Urine Glucose (UA) (Negative) Urine Ketones (Negative) Urine Blood (Negative) Urine Nitrite (Negative) Urine Bilirubin (Negative) Urine Urobilinogen (Negative) Ur Leukocyte Esterase (Negative) Urine Osmolality (500-800) mOsm/kg Stool Occult Bld Scrn (Negative) Blood Type Antibody Screen Antibody Identification Anti-K Anti-Fya Anti-E Antibody ID Referred Antibody ID Comment Crossmatch 02/26/24 02/26/24 Range/Units 09:13 08:10 Hgb (12.0-16.0) g/dl Hct (37.0-47.0) % Immature Gran % (Auto) 1.2 % Neut % (Auto) 76.0 % Lymph % (Auto) 3.7 % [place] % (Auto) 13.6 % Eos % (Auto) 4.9 % Baso % (Auto) 0.6 % Neut # (Auto) 3.70 (1.40-6.50) K/uL Lymph # (Auto) 0.18 L (1.20-3.40) K/uL [place] # (Auto) 0.66 H (0.11-0.59) K/uL Eos # (Auto) 0.24 (0.00-0.50) K/uL Baso # (Auto) 0.03 (0.00-0.20) K/uL Immature Gran # (Auto) 0.06 (0.01-0.20) K/uL Polychromasia 1+ Macrocytosis Present PT 11.4 (9.0-12.0) Seconds INR 1.1 (0.9-1.1) Sodium (136-145) mmol/L Potassium (3.5-5.1) mmol/L Chloride (98-107) mmol/L Carbon Dioxide (21-32) mmol/L Anion Gap (3-11) BUN (6-23) mg/dl Creatinine (0.6-1.2) mg/dl Est Cr Clr Drug Dosing ml/min Est GFR ( Amer) ml/min Est GFR (Non-Af Amer) ml/min BUN/Creatinine Ratio (10-20) Glucose (70-99(Fasting)) mg/dl Calcium (8.6-10.3) mg/dl Magnesium (1.7-2.4) mg/dl TSH 3.600 (0.300-4.500) uIu/ml Urine Color Urine Appearance (Clear) Urine pH (4.5-7.5) Ur Specific [place] (1.000-1.030) Urine Protein (Negative) Urine Glucose (UA) (Negative) Urine Ketones (Negative) Urine Blood (Negative) Urine Nitrite (Negative) Urine Bilirubin (Negative) Urine Urobilinogen (Negative) Ur Leukocyte Esterase (Negative) Urine Osmolality (500-800) mOsm/kg Stool Occult Bld Scrn (Negative) Blood Type O Positive Antibody Screen POSITIVE A Antibody Identification Anti-CW Antibody ID Referred Antibody ID Comment Crossmatch Diagnostic Findings Abdomen/Pelvis CT 02/26/24 13:01 CT abd pelvis wo con CLINICAL HISTORY: abd distension TECHNIQUE: Helical axial images of the abdomen and pelvis were obtained. Automated dose lowering techniques and/or adjustment according to patient size were utilized for this exam. This exam was performed without intravenous contrast. CT DOSE: 810.54 mGy.cm COMPARISON: Comparison is made to CT abdomen pelvis 01/22/2023 FINDINGS: Lower chest: Bibasilar atelectasis versus scarring is seen. Liver: Mild hepatomegaly is seen. Gallbladder and biliary tree: Cholelithiasis is seen without evidence of cholecystitis. No intra- or extrahepatic biliary ductal dilation. Pancreas: Unremarkable, no focal lesions. Spleen: Unremarkable. Adrenals: Unremarkable. Kidneys and ureters: Unremarkable. Bladder: Unremarkable. Reproductive organs: Unremarkable. Bowel: Diverticulosis is seen without evidence of diverticulitis. Lymph nodes Retroperitoneal: Subcentimeter lymph nodes are noted. Pelvic: Unremarkable. Mesenteric: Unremarkable. Peritoneum: Mild ascites is seen. Vessels: Unremarkable. Abdominal wall: A fat-containing umbilical hernia is seen. Prominent intramuscular hematoma is seen in the left iliopsoas measuring up to 8.3 x 5.5 cm. Bones: Mild degenerative changes are seen. IMPRESSION: Intramuscular hematoma in the left iliopsoas. Stable mild ascites, similar to prior exam. ACT 112: Negative or not required by law. Electronically signed by: Anthony Poe M.D. 02/26/2024 3:22 PM (1) Anemia Anemia type: other cause Other causes of anemia: other cause, not classified Qualified Code(s): D64.89 - Other specified anemias
[2024-02-27] MEDS: ACETAMINOPHEN 500 MG TAB PO PRN (10:14)
[2024-02-27 13:12] LABS: Hematocrit (blood only) 22.7 % (37.0-47.0); Hemoglobin 7.4 g/dl (12.0-16.0)
--- NOTE | 2024-02-27 15:10 | Hospitalist Progress Note ---
Date of Service February 27, 2024 Assessment & Plan (1) Acute blood loss anemia: Plan: In the setting of being on anticoagulation due to mechanical valves Coumadin held even though there is a risk of thrombosis due to mechanical valves. INR 1 Intramuscular hematoma in the left iliopsoas muscle. The patient also has a history of GI bleed in the past. The patient was discharged with hospice recently but it seems like she revoked hospice and ended up at [facility]. Initially she did not want to reveal the fact that she was discharged on hospice. She is agreeable to talk to palliative care. She changed her CODE STATUS to DNR/DNI She got 1 unit of blood with improvement in her hemoglobin and blood pressure as well Her stool was positive for occult blood. GI was consulted. They did not recommended the intervention at this time. They advanced her diet. (2) Congestive heart failure: Plan: Patient appears euvolemic to slightly hypervolemic but is breathing well at this time. Due to recent low blood pressure readings, will hold off on torsemide for the time being. Plan to start torsemide tomorrow once blood pressure is little more stable. She was discharged with hospice but was recommended to continue taking her water pill to stay comfortable. She is not short of breath or hypoxic at this time. (3) Hyponatremia: Plan: -Sodium of 125 at time of admission. 121 today. Most likely related to hypervolemia and fluid overload (4) Atrial fibrillation: (5) Chronic lower back pain: Plan: Most likely due to the intramuscular iliopsoas hematoma. No Dilaudid or medications that could lower her blood pressure. (6) Hypothyroidism: Plan: -Discharge meds from [facility] shows levothyroxine 25 mcg. (7) H/O mechanical aortic valve replacement: Plan: Coumadin has been discontinued because of intramuscular hematoma in the left iliopsoas muscle Patient was discharged on hospice Consult palliative care to address this (8) Discharge planning issues: Plan: -Patient left [facility] AM, went to son's house and was immediately brou ght to the hospital by EMS. -Currently homeless. (9) History of permanent cardiac pacemaker placement: Admission and Anticipated Discharge Date Admission Date: February 26, 2024 Subjective The patient allowed the nurse and myself to review her patient portal from [facility]. Hospital Admission- Dates December 26, 2023 to February 25, 2024 Progress Note by Paul Landaverde MD at 02/24/2024 5:19AM "Interval Events - Patient discharge moved tentatively to tomorrow 02/24, w/ plan for [id number] and hospice services to be initiated there -Discontinued labs -Patient to maintain current drips till point of discharge -Confirmed plan to d/c off of anticoagulation despite risk of thrombosis d/t bleeding risk and plan to keep comfortable with hospice. " The patient then confirmed that she was discharged with hospice from [facility]. She plans to hop around from 1 hospital to another until she finds a hospital that will put her back on her Coumadin so she "will not " After detailed discussion, the patient wishes to be DNR/DNI. She is willing to speak to the palliative team. He has questions about transfer to [facility] but when I explained to her that this is not an escalation of care and they will most likely decline, she asked me to hold off on transferring for now. Review of Systems Review of Systems: All systems reviewed & are unremarkable except as noted in Subjective Physical Exam Physical Exam: General: Awake, conversant Heart: S1, S2/regular rate and rhythm, no murmur rubs or gallops Lungs: Clear to auscultation bilaterally. Normal effort Abdomen: Soft/nontender. Distended abdomen. Positive for ascites. Extremities: No clubbing/cyanosis. 2+ pitting bilateral edema. She tells me that this is usual for her. Behavior: Appropriate, cooperative Results & Data Results & Data Vital Signs (Past 12 Hours) Vital Signs Temp Pulse Pulse Resp BP Pulse Ox O2 Del Method 02/27/24 10:56 37.0 C 74 18 92/53 L 99 Room Air 02/27/24 08:03 Room Air 02/27/24 07:28 36.7 C 70 18 103/63 97 Room Air 02/27/24 06:29 74 02/27/24 05:00 O2 Del Method 02/27/24 10:56 02/27/24 08:03 02/27/24 07:28 02/27/24 06:29 02/27/24 05:00 Room Air Laboratory Results Abnormal lab results 02/26/24 02/26/24 02/26/24 Range/Units 09:13 21:14 Unknown Hgb 6.6 L* (12.0-16.0) g/dl Hct 20.5 L* (37.0-47.0) % Sodium (136-145) mmol/L Chloride (98-107) mmol/L BUN (6-23) mg/dl BUN/Creatinine Ratio (10-20) Glucose (70-99(Fasting)) mg/dl Urine Osmolality 309 L (500-800) mOsm/kg Stool Occult Bld Scrn Positive A (Negative) Antibody Screen POSITIVE A Crossmatch See Detail 02/27/24 02/27/24 Range/Units 06:35 12:38 Hgb 7.6 L 7.4 L (12.0-16.0) g/dl Hct 23.1 L 22.7 L (37.0-47.0) % Sodium 124 L (136-145) mmol/L Chloride 93 L (98-107) mmol/L BUN 65 H (6-23) mg/dl BUN/Creatinine Ratio 59.6 H (10-20) Glucose 109 H (70-99(Fasting)) mg/dl Urine Osmolality (500-800) mOsm/kg Stool Occult Bld Scrn (Negative) Antibody Screen Crossmatch Diagnostic Findings Abdomen/Pelvis CT 02/26/24 13:01 CT abd pelvis wo con CLINICAL HISTORY: abd distension TECHNIQUE: Helical axial images of the abdomen and pelvis were obtained. Automated dose lowering techniques and/or adjustment according to patient size were utilized for this exam. This exam was performed without intravenous contrast. CT DOSE: 810.54 mGy.cm COMPARISON: Comparison is made to CT abdomen pelvis 01/22/2023 FINDINGS: Lower chest: Bibasilar atelectasis versus scarring is seen. Liver: Mild hepatomegaly is seen. Gallbladder and biliary tree: Cholelithiasis is seen without evidence of cholecystitis. No intra- or extrahepatic biliary ductal dilation. Pancreas: Unremarkable, no focal lesions. Spleen: Unremarkable. Adrenals: Unremarkable. Kidneys and ureters: Unremarkable. Bladder: Unremarkable. Reproductive organs: Unremarkable. Bowel: Diverticulosis is seen without evidence of diverticulitis. Lymph nodes Retroperitoneal: Subcentimeter lymph nodes are noted. Pelvic: Unremarkable. Mesenteric: Unremarkable. Peritoneum: Mild ascites is seen. Vessels: Unremarkable. Abdominal wall: A fat-containing umbilical hernia is seen. Prominent intramusc ular hematoma is seen in the left iliopsoas measuring up to 8.3 x 5.5 cm. Bones: Mild degenerative changes are seen. IMPRESSION: Intramuscular hematoma in the left iliopsoas. Stable mild ascites, similar to prior exam. ACT 112: Negative or not required by law. Electronically signed by: Anthony Poe M.D. 02/26/2024 3:22 PM PG Care Time/CCT Total # of Minutes Spent Total Time Spent with Patient: Total time spent is greater than 50% in coordination of care (as documented) at patient's floor/unit and/or counseling patient: Coding Level of Care Code 33119 SUB INP/OBS CARE 2/35MIN Diagnoses Acute blood loss anemia D62 Congestive heart failure I50.9 Hyponatremia E87.1 Permanent atrial fibrillation I48.2 Atrial fibrillation type: permanent Chronic lower back pain M54.50; G89.29 Hypothyroidism E03.9 H/O mechanical aortic valve replacement Z95.2 Discharge planning issues Z75.8 History of permanent cardiac pacemaker placement Z95.0 (4) Atrial fibrillation Atrial fibrillation type: permanent Qualified Code(s): I48.2 - Chronic atrial fibrillation
[2024-02-27 21:52] LABS: Hematocrit (blood only) 22.7 % (37.0-47.0); Hemoglobin 7.3 g/dl (12.0-16.0)
--- NOTE | 2024-02-28 00:42 | Ultrasound Report ---
Exam(s): US VENOUS BILATERAL LOWER EXTREMITIES EXAM: US Duplex Bilateral Lower Extremities Veins CLINICAL HISTORY: Pain in legs, off anticoagulants. TECHNIQUE: Real-time duplex ultrasound scan of the bilateral lower extremity veins integrating B-mode two-dimensional vascular structure, Doppler spectral analysis, color flow Doppler imaging and compression. COMPARISON: No relevant prior studies available. FINDINGS: Right deep veins: Unremarkable. No DVT in the right common femoral, femoral, proximal deep femoral or popliteal veins. The veins demonstrate normal color flow, are normally compressible, with normal phasic flow and/or augmentation response. The interrogated calf veins are patent. Right superficial veins: Unremarkable. No thrombus in the saphenofemoral junction. Left deep veins: Unremarkable. No DVT in the left common femoral, femoral, proximal deep femoral or popliteal veins. The veins demonstrate normal color flow, are normally compressible, with normal phasic flow and/or augmentation response. The interrogated calf veins are patent. Left superficial veins: Unremarkable. No thrombus in the saphenofemoral junction. Soft tissues: Subcutaneous edema noted from the mid thighs distally involving both lower extremities. No loculated fluid collections. No popliteal cyst. IMPRESSION: No evidence for deep vein thrombosis involving the bilateral lower extremities. Bilateral subcutaneous edema noted. Electronically signed by: Aneudy Newton MD 02/28/24 00:41 AM
--- NOTE | 2024-02-28 06:52 | Communication Note ---
Date of Service: February 28, 2024 Notified by nursing overnight that patient had called 911 asking to be brought to [facility] as she was being deprived of her coumadin. Reviewed with nursing and chart check showed [facility] transfer was declined by [facility]. Code status changed to DNR/DNI today, palliative consult was placed on 02/26. Hgb repeat overnight resulted at 7.3, no further transfusions ordered due to no significant change from prior H&H and stable vital signs. Resident Activity Tracking Resident Involvement: Resident Care Provided Care Provided: Adult Hospital [facility]
[2024-02-28] MEDS: TORSEMIDE 20 MG TAB PO ONE (08:23)
[2024-02-28 09:45] LABS: Hematocrit (blood only) 23.7 % (37.0-47.0); Hemoglobin 7.4 g/dl (12.0-16.0); Mean Corpuscular Hgb Conc 31.2 g/dL (32.0-36.0); Mean Corpuscular Volume 99.2 fL (80.0-100.0); Mean Platelet Volume 9.4 fL (9.4-12.4); Platelet Count 232 K/uL (130-400); RDW Coefficient of Variation 21.7 % (11.5-14.5); RDW Standard Deviation 77.4 fL (36.4-46.3); Red Blood Count 2.39 M/uL (4.20-5.40); White Blood Count 5.96 K/ul (4.8-10.8)
--- NOTE | 2024-02-28 09:51 | Palliative Care Consultation ---
Date of Consultation February 28, 2024 Assessment & Plan (1) Pain, upper back: (2) Denial as mental defense mechanism: (3) Leg pain, bilateral: (4) Weakness generalized: (5) Advanced care planning/counseling discussion: A 2 part 60-minute total [id number] advance care planning meeting was held with patient at the bedside. The meeting was broken into 2 parts because she received a phone call from [facility] and asked me to return later. She shared a very lengthy and extensively detailed version of events. These do not always lined up with the fax detailed in the clinical record. 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 She has persistent anasarca and spite of max dose diuretics. We discussed that in the context of these complications, it is clear that her heart failure is becoming refractory to treatment. She had several conversations documented in her [facility] chart with regards to the goals of care and eventually a plan had been agreed upon for inpatient hospice discharge however, because her insurance is [place] Medicaid, [place] facilities were not willing to accept her and ultimately placement was sought in [place] and she was discharged to a penit[facility]iary facility in [place]. The prison in [place] was not to her liking. She states that there were numerous demented patients several of whom walked into her room and sat on the bed next to her and this was upsetting to her. She signed herself out AMA and went to her son's home, however he became enraged and told her she was not welcome there and called the ambulance telling her that she needed to figure herself out. She further adds that her sister "cleared out the apartment and took my car" when she was admitted to [facility] and now she is "homeless, and I do not even have my car anymore." A separate discussion was held with Zabrina Clemons RN from [facility] hematology, office of Dr. Romero/hematology. Zabrina provided additional fax and can be reached at [phone] for additional questions. Patient was admi tted to [place] for a redo AVR that was done 02/02/2024. Her initial AVR was done December 2022. She has very severe aortic stenosis with high-grade AV block permanent pacemaker decompensated heart failure. She is not a transplant candidate due to her advanced and severe pulmonary hypertension, elevated PVR, cachexia, refractory anasarca. Additionally, she has autoimmune disease from rheumatic fever. Dilma I had a lengthy discussion with regards to options at this junction. She continues to insist that low-dose Lovenox can be used to provide "some blood thinning abilities" and to help "make sure he might valve does not clot off and I ." Reviewed that overall, history is demonstrating that she is not able to tolerate the anticoagulants. She has required repeated blood transfusions and she has a high antibody titer which makes crossmatching difficult for her as well. Additionally, every time additional efforts are made to restart her anticoagulation, the bleeding worsens whether it is into the RP space, GI bleed, worsening anemia, hemolysis, etc. Reviewed overall that the high risk of mortality exist with either option. She continues to insist that she would want to try anticoagulation and does not feel that she should go on hospice. She states that she is unsure why this was even offered to her. I reviewed the reports from [facility] with her and how the numerous goals of care conversations held with her, the cardiology, hematology, social work and medicine teams ultimately led to an agreement for discharge with comfort as the focus. I discussed with her the option of transitioning to a more comfort focused plan of care this admission while she works to try and reinstate an apartment for herself. She tells me she has reached out to [facility] legal [employer] ices for help on this, however, she is awaiting a call back. She does not know what span of time it may take to reinstitute low income housing for herself. She continues to complain of uncontrolled pain and distress. Her edema is very poorly controlled as evidenced by the exam above. I discussed the option of pursuing a plan of care that focuses more on her comfort and quality of life while she makes efforts to try and reinstate some of her living situation. It is clear however at this time she is not safe for discharge home and would not have any caregiver support. Additionally, she is without an actual home and the only place she potentially could go as her son's home and he is already made it clear that he does not wish to have her at home. I recommended that she take some time to think about the options. Even if we could potentially reach an agreement about using low-dose Lovenox for suboptimal attempts at anticoagulation, these would be continued in a chronic care setting and she would still need to be discharged to a SNF. She would need to continue to work on her housing reinstatement issues from the penitentiary facility with the assistance of the [facility] legal services organization. It is unclear to me what duration of time it may take for her housing to be reinstated though it is estimated that it could be months to a year. She tells me she was told at [place] that she "only had for 5 days to live, but here I am now and clearly they were wrong. So what is anybody really know?" She was however receptive to the option of transitioning to a focus more about quality of life while she continues to work on her other issues and we agreed that should she make some significant improvement to where more aggressive therapies could be revisited, then she could follow-up with providers at that time. Throughout this discussion, she listed numerous grievances and perceived slights by all medical organizations. Her concerns were listened to and p sychosocial support was provided. She indicates that jose de jesus is often a mckeon part of providing support to her through difficult times. I offered her adolescent medicine specialist visit, to which she agreed, and adolescent medicine specialist was notified. In discussion with the [facility], it was reported that she completed advanced directives on 02/07/2024 listing her Sister Leesa Gan as power of workers compensation attorney telephone #[phone] and the secondary POA is her other sister Lila Hogan telephone #[phone]. (6) Palliative care by specialist: Discussed Palliative Medicine provides specialized medical care for patients with a serious illness. We offer a focus on quality of life through reduction of symptom burden/more control over their illness, for patients and their family. Palliative Medicine interventions can be given along with curative treatment. I specifically clarified we are not hospice, which is a visiting nurse service that focuses on care delivered at the very end of life. Plan As above. Thank you for allowing us to participate in the ongoing care of this patient. Please page with any additional concerns. Zane Crews DNP Director, Palliative Medicine History of Present Illness Attending Physician: Petrona Rosas MD History of Present Illness 63 year old female with past medical history significant for HFpEF, rheumatic heart disease s/p MVR + TVR (multiple redo's, most recent 12/29), PAF on warfarin, AV block with PPM, DM2, (?)cardiac cirrhosis with frequent paracenteses and chronic hyponatremia. Recent hx of fractured her shoulder from a fall when her shoe got caught in a floor vent. Was seen by orthopedics at [place] and is in a sling. presented to [facility] ED 02/24: "63-year-old female with complex past medical history including congestive heart failure, aortic valve replacement, a flutter/fib, diabetes, chronic back pain amongst multiple other comorbidities. Patient arrives with primary complaint of bilateral leg swelling but admits she is currently homeless without any of her medications. Patient reports having been in the [facility] the last 2 months for evaluation of possible heart transplant for which she was declined. She was transferred to prison today however did not like it thus left AMA and has nowhere else to go. Patient has none of her medications she has multiple severe risk factors and workup here reveals acute hyponatremia, acute anemia amongst other abnormal laboratory findings. Patient denies any bleeding or black or bloody stool. She has been on heparin up until this morning which point she was advised to restart her Coumadin though has not had a dose of that yet. Renal function is also a bit off. I discussed this with the hospitalist and given her multiple, Plex issues we will hold off on any Lasix at this time until they evaluate. Patient is without any chest pain, shortness of breath or other symptoms requiring emergent transfusion." Extensive hx as follows: PAST MEDICAL HISTORY Aortic regurgitation ASD (atrial septal defect) Atrial fibrillation (HCC) s/p multiple DCC's Cancer (HCC) Chronic anticoagulation Congestive heart failure (HCC) Depression Diastolic heart failure (HCC) Gastric ulcer 2021 Dx by EGD, + melena, resolved w PPI History of transfusion Hypertension Mitral valve disorders(424.0) 1985, 2004 MVR - Mechanical valve, tricuspid valve annuloplasty, LA appendage ligation, pacemaker wire installed. Rheumatic heart disease Sleep apnea Tricuspid stenosis severe following TVr Tricuspid valve disorder PAST SURGICAL HISTORY ANESTH,PACEMAKER INSERTION 08/04/2019 Medtronic microtel silver bullet pacemaker. HEMATOMA EVACUATION Left 2021 L quad hematoma evacuation HIP OR Left 2019 hip pinning X2 LIG/TRNSXJ FLP TUBE ABDL/VAG APPR UNI/BI Tubal ligation MYRINGOTOMY ASPIR&/EUSTACHIAN TUBE NFLTJ ANES Myringotomy/tubes PAST SURGICAL HISTORY OF 03/22/86, 2004 TV repair / MV replacement PAST SURGICAL HISTORY OF 08/29/2004 Direct current cardioversion PAST SURGICAL HISTORY OF 08/09/1987 Mediasternotomy incisional scar revision PAST SURGICAL HISTORY OF 08/09/2009 PULM VEIN ablation TOTAL HIP REPLACEMENT Left 2021 FAMILY HISTORY Cancer Mother early 60's of stomach cancer Cancer Father early 60's of lung cancer Lung Cancer Father Social History Tobacco Use Smoking status: Every Day Packs/day: 0.30 Years: 23.00 Additional pack years: 0.00 Total pack years: 6.90 Types: Cigarettes Passive exposure: Current Smokeless tobacco: Former Quit date: 04/09/2022 Tobacco comments: 05/08/14-Still smoking 2-3 cigarettes per day Vaping Use Vaping Use: Never used Substance Use Topics Alcohol use: Yes Alcohol/week: 4.0 standard drinks of alcohol Types: 4 Cans of beer per week Comment: 3-4 beers per week Drug use: Not Currently Types: Marijuana Comment: Many years ago - 1970s ALLERGIES Levaquin [Levofloxa* Other: See Comments LE edema reported per patient Morphine Mental Status Change Hallucinations Received Morphine since 2021 without SE or hallucinations!! Prednisone Intolerance "chf" and "atrial fibrillation" Adhesive Tape (Lacey* Rash Empagliflozin Intolerance Developed hyponatremia requiring hypertonic saline and salt tabs Fluoxetine Rash Ambien [Zolpidem] Mental Status Change Can't sleep and memory loss Antidepressants [Tr* Mental Status Change Ativan [Lorazepam] Mental Status Change Codeine Mental Status Change Estrogens Other: See Comments Pt states intolerance with oral estrogen - afib/chf exacerbation [facility] EMR Link Data review: "Received call from patient that she is actively bleeding. Called and spoke with patient who states she was discharged from [facility] on 02/24, but then got re-admitted to [facility] the same day due to tarry stool with bright red spots. Patient states she is currently admitted at [facility]. Her Coumadin is on hold, INR is currently 1.1 per patient. Patient states she is calling because she is not happy with the care she is receiving and is looking for advice related to her anticoagulation management. Discussed with patient that I recommend she follow direction from inpatient providers. She states she will contact her manager medical device Dr. Alvarez tomorrow and may consider transfer to [facility]. Of note, patient is on [facility] schedule tomorrow for follow up on [facility] admission. Cindy Villa, AlfredD, [facility] Clinical Pharmacist - [facility] 02/27/2024 10:14 AM" [facility] CT ABD/PELVIS WO IV CONTRAST - W ORAL CONTRAST IMPRESSION: Moderate size hematoma involving the LEFT psoas muscle, quadratus lumborum muscle, and lower LEFT retroperitoneum. Small volume hemoperitoneum, primarily within the pelvis. Mildly thickened LEFT adrenal. Dry Cell Assembly Supervisor: ROSS Transcribe Date/Time: Feb 02 2024 8:42P Dictated by : CHARANJIT HARRY MD [place] Spoke Maker: Liz Elias MD [address] [place], [place] [id number] [facility] [address] [place] [address] Nannette Lockhart MD [address] [place] [address] [place] Nephro: Kidney Medicine [address] [place] [address] [address] [place] [address] [place], [place] [id number] [place] GI: Gastroenterology [address] [address] Carrie Walsh MD [address] [place], [place] [id number] [phone] Aneudy Dominique MD [address] [place] [id number] Allergies Allergy/AdvReac Type Severity Reaction Status Date / Time adhesive Allergy Intermediate rash Verified 01/21/23 17:49 fluoxetine Allergy Intermediate Rash Verified 01/21/23 17:49 mushroom Allergy Intermediate EYES Verified 01/21/23 17:49 SWELLED hydrocodone Allergy Unknown ON MED LIST Verified 01/21/23 17:49 levofloxacin [From Levaquin] Allergy Unknown ON MED LIST Verified 01/21/23 17:49 azithromycin AdvReac Severe Tachycardia Verified 01/21/23 17:49 [From Zithromax Z-Anton] /A-FIB Estrogens AdvReac Severe CHF Verified 01/21/23 17:49 lorazepam AdvReac Severe mental Verified 01/21/23 17:49 status change prednisone AdvReac Severe LOW BP D/T Verified 01/21/23 17:49 FLUID SHIFT acetaminophen [From Tylenol] AdvReac Intermediate D/T LIVER Verified 01/21/23 17:49 ISSUES aspirin AdvReac Intermediate CONTRAINDICATED Verified 01/21/23 17:49 WITH COUMADIN PER PT. cephalexin AdvReac Intermediate Tachycardia Verified 01/21/23 17:49 codeine AdvReac Intermediate Shakiness Verified 01/21/23 17:49 Corticosteroids AdvReac Intermediate HYPOTENSION Verified 01/21/23 17:49 (Glucocorticoids) doxycycline AdvReac Intermediate LEGS SWELL Verified 01/21/23 17:49 fluocinonide AdvReac Intermediate Tachycardia Verified 01/21/23 17:49 NSAIDS (Non-Steroidal AdvReac Intermediate HYPOTENSION Verified 01/21/23 17:49 Anti-Inflamma zolpidem [From Ambien] AdvReac Intermediate MENTAL Verified 01/21/23 17:49 STATUS CHANGE Anti-Depressents Allergy Unknown SEE COMMENT Uncoded 01/21/23 17:49 Home Medications Medication Instructions Recorded Confirmed Type warfarin 1 mg tablet (Jantoven) 2 mg PO 3XWK 07/03/22 01/30/23 History warfarin 1 mg tablet (Jantoven) 4 mg PO 4XWK 07/03/22 01/30/23 History torsemide 100 mg tablet 100 mg PO BID 10/05/22 01/30/23 History coenzyme Q10 100 mg capsule 100 mg PO DAILY 01/21/23 01/30/23 History (CoQ-10) ferrous sulfate 325 mg (65 mg 325 mg PO DIRECTED PRN 01/21/23 01/30/23 History iron) tablet,delayed release NEEDED PER MED LIST hydroxyzine HCl 10 mg tablet 10 mg PO Q8H PRN Anxiety 01/21/23 01/30/23 History magnesium oxide 400 mg (241.3 mg 400 mg PO BID 01/21/23 01/30/23 History magnesium) tablet metoprolol succinate 25 mg 25 mg PO QAM 01/21/23 01/30/23 History tablet,extended release 24 hr mirtazapine 7.5 mg tablet 22.5 mg PO HS 01/21/23 01/30/23 History multivitamin-iron 9 mg-folic acid 1 tab PO QAM 01/21/23 01/30/23 History 400 mcg-calcium and minerals tablet (Thera M Plus (ferrous fumarate)) oxycodone 5 mg tablet 5 mg PO Q6H PRN Pain 01/21/23 01/30/23 History pantoprazole 20 mg tablet,delayed 20 mg PO DAILYBB 01/21/23 01/30/23 History release Multi Vitamin 1 mg PO DAILY 01/30/23 01/30/23 History potassium chloride 10 mEq 50 meq PO BID 01/30/23 01/30/23 History tablet,extended release oxycodone 5 mg tablet 5 mg PO Q6 PRN pain #12 tabs 02/16/23 Rx Patient History Medical History Gallstones Anticoagulant-induced bleeding Acute blood loss anemia Pulmonary hypertension Tricuspid stenosis Rheumatic cardiomyopathy Elevated LFTs Hyponatremia Hyperkalemia Supratherapeutic INR Hematoma of left thigh Anemia Elevated LDH Post traumatic stress disorder Diverticular disease Hernia X2 Right-sided heart failure Acute kidney injury Chronic cor pulmonale Tricuspid stenosis, acquired due to prior tricuspid valve repair Mitral stenosis Pacemaker Surgical History History of heart valve replacement H/O tricuspid valve repair S/P MVR (mitral valve replacement) History of endoscopic sinus surgery ATTEMPTED TO CAUTERIZE 05/14, UNABLE, PATIENT IN PAIN AND BLEEDING History of cardiac cath 2003, NO STENTS ROUTINE History of placement of ear tubes History of tubal ligation H/O tricuspid valve repair initial - 1985; repeat TV repair 2004 History of cardiac radiofrequency ablation for a.fib - 2003 [place] teeth removed H/O tympanostomy History of bilateral tubal ligation H/O mitral valve replacement 1985, initial MVR at [facility] [address] [facility] [employer] Mechanical valve; INR goal 2.5-3.5 H/O tricuspid valve repair Family History Mother , 60s Gastric cancer Father , age 65 Lung cancer Social History Smoking Status: Current some day smoker Tobacco Type: Cigarettes packs per day: 0.5; Cigarettes Per Day: 10; Second Hand Exposure: No; Do You Dip or Chew Tobacco: No; Tobacco Cessation Education Requested by Patient: No Hx Alcohol Use: Yes Alcohol type: beer Hx Substance Use: No Preferred Language: Korean Communication Ability: Effective Visual Impairment: Limited Hearing Ability: Normal Mds Manager Required: No Beliefs That Will Affect Care: None marital status: marital status details: 1 son Current Living Situation: Alone Current Living Situation Comment: Patient lives alone in a second story apartment current occupational status: employed 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 Mild bitemporal wasting. PERRLA, EOMI's. Neck is supple and without stridor, no gross JVD noted Respiratory effort normal. Mild conversational dyspnea. Lungs are diminished but overall clear. There is some conversational dyspnea with prolonged discussion. S1-S2, + murmur, harsh No JVD Abdomen soft, mildly distended, bowel sounds present Bilateral lower extremities with severe erythematous edema +3 to +4 pitting up to the mid thigh. Significant difficulty with mobility and repositioning in bed due to the profound nature of her erythema. Vascular insufficiency changes to the lower extremities are noted. Awake alert and oriented x 3. + Tangential, + perseveration, + wandering thoughts, + wishful thinking Skin is pale, warm and otherwise intact. Results & Data Vital Signs (Past 12 Hours) Vital Signs Temp Pulse Pulse Resp BP Pulse Ox O2 Del Method 02/28/24 07:18 36.6 C 76 18 93/52 L 96 Room Air 02/28/24 07:15 71 02/28/24 03:10 36.6 C 76 18 95/58 L 96 Room Air 02/27/24 23:05 70 02/27/24 23:04 36.6 C 70 18 106/54 L 97 Room Air Laboratory Results 02/28/24 02/28/24 02/27/24 Range/Units 12:57 09:06 21:24 WBC 5.96 (4.8-10.8) K/ul RBC 2.39 L (4.20-5.40) M/uL Hgb 7.7 L 7.4 L 7.3 L (12.0-16.0) g/dl Hct 23.7 L 23.7 L 22.7 L (37.0-47.0) % MCV 99.2 (80.0-100.0) fL MCH 31.0 (25.0-34.0) pg MCHC 31.2 L (32.0-36.0) g/dL RDW Std Deviation 77.4 H (36.4-46.3) fL RDW Coeff of Dunia 21.7 H (11.5-14.5) % Plt Count 232 (130-400) K/uL MPV 9.4 (9.4-12.4) fL Immature Gran % (Auto) % Neut % (Auto) % Lymph % (Auto) % [place] % (Auto) % Eos % (Auto) % Baso % (Auto) % Neut # (Auto) (1.40-6.50) K/uL Lymph # (Auto) (1.20-3.40) K/uL [place]on # (Auto) (0.11-0.59) K/uL Eos # (Auto) (0.00-0.50) K/uL Baso # (Auto) (0.00-0.20) K/uL Immature Gran # (Auto) (0.01-0.20) K/uL Polychromasia Anisocytosis Macrocytosis PT 11.4 (9.0-12.0) Seconds INR 1.1 (0.9-1.1) APTT (21-31) Seconds PTT Ratio Sodium 125 L (136-145) mmol/L Potassium 4.7 (3.5-5.1) mmol/L Chloride 97 L (98-107) mmol/L Carbon Dioxide 21 (21-32) mmol/L Anion Gap 7 (3-11) BUN 57 H (6-23) mg/dl Creatinine 1.12 (0.6-1.2) mg/dl Est Cr Clr Drug Dosing 54.4 ml/min Est GFR ( Amer) 61.0 ml/min Est GFR (Non-Af Amer) 52.6 ml/min BUN/Creatinine Ratio 50.9 H (10-20) Glucose 147 H (70-99(Fasting)) mg/dl Osmolality (280-300) mOsm/kg Calcium 9.1 (8.6-10.3) mg/dl Phosphorus (2.5-4.9) mg/dl Magnesium (1.7-2.4) mg/dl Total Bilirubin (0.2-1.0) mg/dl Direct Bilirubin (0-0.2) mg/dl AST (13-39) U/L ALT (7-52) U/L Alkaline Phosphatase (34-104) U/L Troponin I High Sens (0-14) pg/ml B-Natriuretic Peptide (0-100) pg/ml Total Protein (6.0-8.3) gm/dl Albumin (3.4-5.0) gm/dl Globulin (2.5-4.0) gm/dl Albumin/Globulin Ratio (0.9-2) TSH (0.300-4.500) uIu/ml Urine Color Urine Appearance (Clear) Urine pH (4.5-7.5) Ur Specific [place] (1.000-1.030) Urine Protein (Negative) Urine Glucose (UA) (Negative) Urine Ketones (Negative) Urine Blood (Negative) Urine Nitrite (Negative) Urine Bilirubin (Negative) Urine Urobilinogen (Negative) Ur Leukocyte Esterase (Negative) Urine Osmolality (500-800) mOsm/kg Stool Occult Bld Scrn (Negative) Blood Type Antibody Screen Antibody Identification Antibody ID Referred Antibody ID Comment Crossmatch 02/27/24 02/27/24 02/26/24 Range/Units 12:38 06:35 Unknown WBC (4.8-10.8) K/ul RBC (4.20-5.40) M/uL Hgb 7.4 L 7.6 L (12.0-16.0) g/dl Hct 22.7 L 23.1 L (37.0-47.0) % MCV (80.0-100.0) fL MCH (25.0-34.0) pg MCHC (32.0-36.0) g/dL RDW Std Deviation (36.4-46.3) fL RDW Coeff of Dunia (11.5-14.5) % Plt Count (130-400) K/uL MPV (9.4-12.4) fL Immature Gran % (Auto) % Neut % (Auto) % Lymph % (Auto) % Kenton % (Auto) % Eos % (Auto) % Baso % (Auto) % Neut # (Auto) (1.40-6.50) K/uL Lymph # (Auto) (1.20-3.40) K/uL [place]on # (Auto) (0.11-0.59) K/uL Eos # (Auto) (0.00-0.50) K/uL Baso # (Auto) (0.00-0.20) K/uL Immature Gran # (Auto) (0.01-0.20) K/uL Polychromasia Anisocytosis Macrocytosis PT 11.2 (9.0-12.0) Seconds INR 1.0 (0.9-1.1) APTT (21-31) Seconds PTT Ratio Sodium 124 L (136-145) mmol/L Potassium 4.7 D (3.5-5.1) mmol/L Chloride 93 L (98-107) mmol/L Carbon Dioxide 21 (21-32) mmol/L Anion Gap 10 (3-11) BUN 65 H (6-23) mg/dl Creatinine 1.09 (0.6-1.2) mg/dl Est Cr Clr Drug Dosing 55.5 ml/min Est GFR ( Amer) 63.0 ml/min Est GFR (Non-Af Amer) 54.4 ml/min BUN/Creatinine Ratio 59.6 H (10-20) Glucose 109 H (70-99(Fasting)) mg/dl Osmolality (280-300) mOsm/kg Calcium 9.4 (8.6-10.3) mg/dl Phosphorus (2.5-4.9) mg/dl Magnesium 2.3 (1.7-2.4) mg/dl Total Bilirubin (0.2-1.0) mg/dl Direct Bilirubin (0-0.2) mg/dl AST (13-39) U/L ALT (7-52) U/L Alkaline Phosphatase (34-104) U/L Troponin I High Sens (0-14) pg/ml B-Natriuretic Peptide (0-100) pg/ml Total Protein (6.0-8.3) gm/dl Albumin (3.4-5.0) gm/dl Globulin (2.5-4.0) gm/dl Albumin/Globulin Ratio (0.9-2) TSH (0.300-4.500) uIu/ml Urine Color Yellow Urine Appearance Clear (Clear) Urine pH 5.5 (4.5-7.5) Ur Specific [place] 1.013 (1.000-1.030) Urine Protein Negative (Negative) Urine Glucose (UA) Negative (Negative) Urine Ketones Negative (Negative) Urine Blood Negative (Negative) Urine Nitrite Negative (Negative) Urine Bilirubin Negative (Negative) Urine Urobilinogen Negative (Negative) Ur Leukocyte Esterase Negative (Negative) Urine Osmolality 309 L (500-800) mOsm/kg Stool Occult Bld Scrn Positive A (Negative) Blood Type Antibody Screen Antibody Identification Antibody ID Referred Antibody ID Comment Crossmatch 02/26/24 02/26/24 02/26/24 Range/Units 21:14 13:17 11:37 WBC (4.8-10.8) K/ul RBC (4.20-5.40) M/uL Hgb 6.6 L* 6.4 L* (12.0-16.0) g/dl Hct 20.5 L* 20.1 L* (37.0-47.0) % MCV (80.0-100.0) fL MCH (25.0-34.0) pg MCHC (32.0-36.0) g/dL RDW Std Deviation (36.4-46.3) fL RDW Coeff of [place] (11.5-14.5) % Plt Count (130-400) K/uL MPV (9.4-12.4) fL Immature Gran % (Auto) % Neut % (Auto) % Lymph % (Auto) % [place] % (Auto) % Eos % (Auto) % Baso % (Auto) % Neut # (Auto) (1.40-6.50) K/uL Lymph # (Auto) (1.20-3.40) K/uL [place] # (Auto) (0.11-0.59) K/uL Eos # (Auto) (0.00-0.50) K/uL Baso # (Auto) (0.00-0.20) K/uL Immature Gran # (Auto) (0.01-0.20) K/uL Polychromasia Anisocytosis Macrocytosis PT (9.0-12.0) Seconds INR (0.9-1.1) APTT (21-31) Seconds PTT Ratio Sodium (136-145) mmol/L Potassium (3.5-5.1) mmol/L Chloride (98-107) mmol/L Carbon Dioxide (21-32) mmol/L Anion Gap (3-11) BUN (6-23) mg/dl Creatinine (0.6-1.2) mg/dl Est Cr Clr Drug Dosing ml/min Est GFR ( Amer) ml/min Est GFR (Non-Af Amer) ml/min BUN/Creatinine Ratio (10-20) Glucose (70-99(Fasting)) mg/dl Osmolality (280-300) mOsm/kg Calcium (8.6-10.3) mg/dl Phosphorus (2.5-4.9) mg/dl Magnesium (1.7-2.4) mg/dl Total Bilirubin (0.2-1.0) mg/dl Direct Bilirubin (0-0.2) mg/dl AST (13-39) U/L ALT (7-52) U/L Alkaline Phosphatase (34-104) U/L Troponin I High Sens (0-14) pg/ml B-Natriuretic Peptide (0-100) pg/ml Total Protein (6.0-8.3) gm/dl Albumin (3.4-5.0) gm/dl Globulin (2.5-4.0) gm/dl Albumin/Globulin Ratio (0.9-2) TSH (0.300-4.500) uIu/ml Urine Color Urine Appearance (Clear) Urine pH (4.5-7.5) Ur Specific [place] (1.000-1.030) Urine Protein (Negative) Urine Glucose (UA) (Negative) Urine Ketones (Negative) Urine Blood (Negative) Urine Nitrite (Negative) Urine Bilirubin (Negative) Urine Urobilinogen (Negative) Ur Leukocyte Esterase (Negative) Urine Osmolality (500-800) mOsm/kg Stool Occult Bld Scrn (Negative) Blood Type Antibody Screen Antibody Identification Antibody ID Referred Pending Antibody ID Comment Crossmatch 02/26/24 02/26/24 02/26/24 Range/Units 09:13 09:13 09:13 WBC (4.8-10.8) K/ul RBC (4.20-5.40) M/uL Hgb (12.0-16.0) g/dl Hct (37.0-47.0) % MCV (80.0-100.0) fL MCH (25.0-34.0) pg MCHC (32.0-36.0) g/dL RDW Std Deviation (36.4-46.3) fL RDW Coeff of [place] (11.5-14.5) % Plt Count (130-400) K/uL MPV (9.4-12.4) fL Immature Gran % (Auto) % Neut % (Auto) % Lymph % (Auto) % [place] % (Auto) % Eos % (Auto) % Baso % (Auto) % Neut # (Auto) (1.40-6.50) K/uL Lymph # (Auto) (1.20-3.40) K/uL [place] # (Auto) (0.11-0.59) K/uL Eos # (Auto) (0.00-0.50) K/uL Baso # (Auto) (0.00-0.20) K/uL Immature Gran # (Auto) (0.01-0.20) K/uL Polychromasia Anisocytosis Macrocytosis PT (9.0-12.0) Seconds INR (0.9-1.1) APTT (21-31) Seconds PTT Ratio Sodium (136-145) mmol/L Potassium (3.5-5.1) mmol/L Chloride (98-107) mmol/L Carbon Dioxide (21-32) mmol/L Anion Gap (3-11) BUN (6-23) mg/dl Creatinine (0.6-1.2) mg/dl Est Cr Clr Drug Dosing ml/min Est GFR ( Amer) ml/min Est GFR (Non-Af Amer) ml/min BUN/Creatinine Ratio (10-20) Glucose (70-99(Fasting)) mg/dl Osmolality (280-300) mOsm/kg Calcium (8.6-10.3) mg/dl Phosphorus (2.5-4.9) mg/dl Magnesium (1.7-2.4) mg/dl Total Bilirubin (0.2-1.0) mg/dl Direct Bilirubin (0-0.2) mg/dl AST (13-39) U/L ALT (7-52) U/L Alkaline Phosphatase (34-104) U/L Troponin I High Sens (0-14) pg/ml B-Natriuretic Peptide (0-100) pg/ml Total Protein (6.0-8.3) gm/dl Albumin (3.4-5.0) gm/dl Globulin (2.5-4.0) gm/dl Albumin/Globulin Ratio (0.9-2) TSH (0.300-4.500) uIu/ml Urine Color Urine Appearance (Clear) Urine pH (4.5-7.5) Ur Specific [place] (1.000-1.030) Urine Protein (Negative) Urine Glucose (UA) (Negative) Urine Ketones (Negative) Urine Blood (Negative) Urine Nitrite (Negative) Urine Bilirubin (Negative) Urine Urobilinogen (Negative) Ur Leukocyte Esterase (Negative) Urine Osmolality (500-800) mOsm/kg Stool Occult Bld Scrn (Negative) Blood Type Antibody Screen Antibody Identification Anti-S Anti-K Anti-Fya Antibody ID Referred Antibody ID Comment Cancelled Crossmatch See Detail 02/26/24 02/26/24 02/26/24 Range/Units 09:13 09:13 08:10 WBC 4.87 (4.8-10.8) K/ul RBC 2.02 L (4.20-5.40) M/uL Hgb 6.4 L* (12.0-16.0) g/dl Hct 20.1 L* (37.0-47.0) % MCV 99.5 (80.0-100.0) fL MCH 31.7 (25.0-34.0) pg MCHC 31.8 L (32.0-36.0) g/dL RDW Std Deviation 73.8 H (36.4-46.3) fL RDW Coeff of [place] 20.7 H (11.5-14.5) % Plt Count 222 (130-400) K/uL MPV 9.3 L (9.4-12.4) fL Immature Gran % (Auto) 1.2 % Neut % (Auto) 76.0 % Lymph % (Auto) 3.7 % [place] % (Auto) 13.6 % Eos % (Auto) 4.9 % Baso % (Auto) 0.6 % Neut # (Auto) 3.70 (1.40-6.50) K/uL Lymph # (Auto) 0.18 L (1.20-3.40) K/uL [place] # (Auto) 0.66 H (0.11-0.59) K/uL Eos # (Auto) 0.24 (0.00-0.50) K/uL Baso # (Auto) 0.03 (0.00-0.20) K/uL Immature Gran # (Auto) 0.06 (0.01-0.20) K/uL Polychromasia 1+ Anisocytosis Macrocytosis Present PT 11.4 (9.0-12.0) Seconds INR 1.1 (0.9-1.1) APTT (21-31) Seconds PTT Ratio Sodium 125 L (136-145) mmol/L Potassium 3.9 (3.5-5.1) mmol/L Chloride 93 L (98-107) mmol/L Carbon Dioxide 24 (21-32) mmol/L Anion Gap 8 (3-11) BUN 68 H (6-23) mg/dl Creatinine 1.08 (0.6-1.2) mg/dl Est Cr Clr Drug Dosing 48.6 ml/min Est GFR ( Amer) 63.7 ml/min Est GFR (Non-Af Amer) 55.0 ml/min BUN/Creatinine Ratio 63.0 H (10-20) Glucose 108 H (70-99(Fasting)) mg/dl Osmolality (280-300) mOsm/kg Calcium 8.8 (8.6-10.3) mg/dl Phosphorus (2.5-4.9) mg/dl Magnesium (1.7-2.4) mg/dl Total Bilirubin 1.0 (0.2-1.0) mg/dl Direct Bilirubin (0-0.2) mg/dl AST 29 (13-39) U/L ALT 16 (7-52) U/L Alkaline Phosphatase 155 H (34-104) U/L Troponin I High Sens (0-14) pg/ml B-Natriuretic Peptide (0-100) pg/ml Total Protein 6.8 (6.0-8.3) gm/dl Albumin 3.5 (3.4-5.0) gm/dl Globulin 3.3 (2.5-4.0) gm/dl Albumin/Globulin Ratio 1.1 (0.9-2) TSH 3.600 (0.300-4.500) uIu/ml Urine Color Urine Appearance (Clear) Urine pH (4.5-7.5) Ur Specific [place] (1.000-1.030) Urine Protein (Negative) Urine Glucose (UA) (Negative) Urine Ketones (Negative) Urine Blood (Negative) Urine Nitrite (Negative) Urine Bilirubin (Negative) Urine Urobilinogen (Negative) Ur Leukocyte Esterase (Negative) Urine Osmolality (500-800) mOsm/kg Stool Occult Bld Scrn (Negative) Blood Type O Positive Antibody Screen POSITIVE A Antibody Identification Anti-E Anti-CW Antibody ID Referred Antibody ID Comment Crossmatch 02/26/24 02/26/24 02/26/24 Range/Units 02:02 00:16 00:10 WBC 5.34 (4.8-10.8) K/ul RBC 2.20 L (4.20-5.40) M/uL Hgb 7.0 L (12.0-16.0) g/dl Hct 21.7 L (37.0-47.0) % MCV 98.6 (80.0-100.0) fL MCH 31.8 (25.0-34.0) pg MCHC 32.3 (32.0-36.0) g/dL RDW Std Deviation 75.0 H (36.4-46.3) fL RDW Coeff of [place] 21.2 H (11.5-14.5) % Plt Count 234 (130-400) K/uL MPV 9.2 L (9.4-12.4) fL Immature Gran % (Auto) 0.9 % Neut % (Auto) 80.0 % Lymph % (Auto) 3.6 % [place] % (Auto) 10.9 % Eos % (Auto) 3.7 % Baso % (Auto) 0.9 % Neut # (Auto) 4.27 (1.40-6.50) K/uL Lymph # (Auto) 0.19 L (1.20-3.40) K/uL [place] # (Auto) 0.58 (0.11-0.59) K/uL Eos # (Auto) 0.20 (0.00-0.50) K/uL Baso # (Auto) 0.05 (0.00-0.20) K/uL Immature Gran # (Auto) 0.05 (0.01-0.20) K/uL Polychromasia 1+ Anisocytosis Present Macrocytosis PT 11.2 (9.0-12.0) Seconds INR 1.0 (0.9-1.1) APTT 31 (21-31) Seconds PTT Ratio 1.2 Sodium 125 L (136-145) mmol/L Potassium 3.9 (3.5-5.1) mmol/L Chloride 93 L (98-107) mmol/L Carbon Dioxide 23 (21-32) mmol/L Anion Gap 9 (3-11) BUN 70 H (6-23) mg/dl Creatinine 1.25 H (0.6-1.2) mg/dl Est Cr Clr Drug Dosing 42.0 ml/min Est GFR ( Amer) 53.4 ml/min Est GFR (Non-Af Amer) 46.1 ml/min BUN/Creatinine Ratio 56.0 H (10-20) Glucose 124 H (70-99(Fasting)) mg/dl Osmolality 289 (280-300) mOsm/kg Calcium 9.4 (8.6-10.3) mg/dl Phosphorus 4.4 (2.5-4.9) mg/dl Magnesium 2.2 (1.7-2.4) mg/dl Total Bilirubin 1.1 H (0.2-1.0) mg/dl Direct Bilirubin 0.3 H (0-0.2) mg/dl AST 32 (13-39) U/L ALT 19 (7-52) U/L Alkaline Phosphatase 181 H (34-104) U/L Troponin I High Sens 32.6 H 32.3 H (0-14) pg/ml B-Natriuretic Peptide 586 H (0-100) pg/ml Total Protein 7.4 (6.0-8.3) gm/dl Albumin 3.8 (3.4-5.0) gm/dl Globulin (2.5-4.0) gm/dl Albumin/Globulin Ratio (0.9-2) TSH (0.300-4.500) uIu/ml Urine Color Urine Appearance (Clear) Urine pH (4.5-7.5) Ur Specific [place] (1.000-1.030) Urine Protein (Negative) Urine Glucose (UA) (Negative) Urine Ketones (Negative) Urine Blood (Negative) Urine Nitrite (Negative) Urine Bilirubin (Negative) Urine Urobilinogen (Negative) Ur Leukocyte Esterase (Negative) Urine Osmolality (500-800) mOsm/kg Stool Occult Bld Scrn (Negative) Blood Type Antibody Screen Antibody Identification Antibody ID Referred Antibody ID Comment Crossmatch Diagnostic Findings Abdomen/Pelvis CT 02/26/24 13:01 CT abd pelvis wo con CLINICAL HISTORY: abd distension TECHNIQUE: Helical axial images of the abdomen and pelvis were obtained. Automated dose lowering techniques and/or adjustment according to patient size were utilized for this exam. This exam was performed without intravenous contrast. CT DOSE: 810.54 mGy.cm COMPARISON: Comparison is made to CT abdomen pelvis 01/22/2023 FINDINGS: Lower chest: Bibasilar atelectasis versus scarring is seen. Liver: Mild hepatomegaly is seen. Gallbladder and biliary tree: Cholelithiasis is seen without evidence of cholecystitis. No intra- or extrahepatic biliary ductal dilation. Pancreas: Unremarkable, no focal lesions. Spleen: Unremarkable. Adrenals: Unremarkable. Kidneys and ureters: Unremarkable. Bladder: Unremarkable. Reproductive organs: Unremarkable. Bowel: Diverticulosis is seen without evidence of diverticulitis. Lymph nodes Retroperitoneal: Subcentimeter lymph nodes are noted. Pelvic: Unremarkable. Mesenteric: Unremarkable. Peritoneum: Mild ascites is seen. Vessels: Unremarkable. Abdominal wall: A fat-containing umbilical hernia is seen. Prominent intramuscular hematoma is seen in the left iliopsoas measuring up to 8.3 x 5.5 cm. Bones: Mild degenerative changes are seen. IMPRESSION: Intramuscular hematoma in the left iliopsoas. Stable mild ascites, similar to prior exam. ACT 112: Negative or not required by law. Electronically signed by: Anthony Poe M.D. 02/26/2024 3:22 PM Venous Doppler Study 02/27/24 18:37 Exam(s): US VENOUS BILATERAL LOWER EXTREMITIES EXAM: US Duplex Bilateral Lower Extremities Veins CLINICAL HISTORY: Pain in legs, off anticoagulants. TECHNIQUE: Real-time duplex ultrasound scan of the bilateral lower extremity veins integrating B-mode two-dimensional vascular structure, Doppler spectral analysis, color flow Doppler imaging and compression. COMPARISON: No relevant prior studies available. FINDINGS: Right deep veins: Unremarkable. No DVT in the right common femoral, femoral, proximal deep femoral or popliteal veins. The veins demonstrate normal color flow, are normally compressible, with normal phasic flow and/or augmentation response. The interrogated calf veins are patent. Right superficial veins: Unremarkable. No thrombus in the saphenofemoral junction. Left deep veins: Unremarkable. No DVT in the left common femoral, femoral, proximal deep femoral or popliteal veins. The veins demonstrate normal color flow, are normally compressible, with normal phasic flow and/or augmentation response. The interrogated calf veins are patent. Left superficial veins: Unremarkable. No thrombus in the saphenofemoral junction. Soft tissues: Subcutaneous edema noted from the mid thighs distally involving both lower extremities. No loculated fluid collections. No popliteal cyst. IMPRESSION: No evidence for deep vein thrombosis involving the bilateral lower extremities. Bilateral subcutaneous edema noted. Electronically signed by: Aneudy Newton MD 02/28/24 00:41 AM PG Care Time/CCT Total # of Minutes Spent Total Time Spent with Patient: Total time spent is greater than 50% in coordination of care (as documented) at patient's floor/unit and/or counseling patient: I spent 135 minutes overall addressing this very complex case: 25 min in medical data review/discussion with referring provider(s) and/or preparation for the visit incl [employer] EMR Link and phone calls to [facility] provider teams 25 min in direct interaction with the patient/exam 60 min in Advance Care Planning/Goals of Care discussions as detailed above in note (must be >16min) 10 min in subsequent review and synthesis of assessment and plan 15 min communicating with other providers regarding the patient's case: [facility] RN, primary team, nursing. Prolonged Care Time Prolonged Care Time: Yes Advanced Care Planning 11530 Advanced Care Planning 30 Min 74943 Advanced Care Planning Additional 30 [place] [address] IN/OBS CONSULT LVL 5,80M (25 - SIGNIFICANT, SEPARATELY IDENTIFIABLE ) Patient Type New Medical Decision Making High Complexity Diagnoses Pain, upper back M54.9 Denial as mental defense mechanism R45.89 Leg pain, bilateral M79.604; M79.605 Weakness generalized R53.1 Advanced care planning/counseling discussion Z71.89 Palliative care by specialist Z51.5 Additional Codes Prolonged Care Time - Prolonged Care Time: Yes ([id number]) Advanced Care Planning - 81850 Advanced Care Planning 30 Min: 76005 Advanced Care Planning 30 Min ([id number]) Advanced Care Planning - 25698 Advanced Care Planning Additional 30 Min: 86390 Advanced Care Planning Additional 30 Min ([id number])
[2024-02-28 09:54] LABS: BUN Creatinine Ratio 50.9 (10-20); Calcium 9.1 mg/dl (8.6-10.3); Creatinine Clr Calc Pharmacy 54.4 ml/min; Est GFR (Non-African American) 52.6 ml/min; Potassium 4.7 mmol/L (3.5-5.1)
[2024-02-28 10:04] LABS: INR 1.1 (0.9-1.1); Prothrombin Time 11.4 Seconds (9.0-12.0)
--- NOTE | 2024-02-28 11:51 | Electrocardiogram Report ---
Test Reason : Blood Pressure : / mmHG Vent. Rate : 070 BPM Atrial Rate : 068 BPM P-R Int : 000 ms QRS Dur : 200 ms QT Int : 516 ms P-R-T Axes : 000 256 095 degrees QTc Int : 557 ms Ventricular-paced rhythm Abnormal ECG When compared with ECG of 16-FEB-2023 11:29, Vent. rate has decreased BY 2 BPM Confirmed by Dave Vasquez ([id number]) on 02/28/2024 11:51:22 AM Referred By: REFERRED SELF Confirmed By:Dave Vasquez
[2024-02-28 13:38] LABS: Hematocrit (blood only) 23.7 % (37.0-47.0); Hemoglobin 7.7 g/dl (12.0-16.0)
--- NOTE | 2024-02-28 14:41 | Hospitalist Progress Note ---
Date of Service February 28, 2024 Assessment & Plan (1) Acute blood loss anemia: Plan: In the setting of being on anticoagulation due to mechanical valves Coumadin held even though there is a risk of thrombosis due to mechanical valves. INR 1 Intramuscular hematoma in the left iliopsoas muscle. The patient also has a history of GI bleed in the past. The patient was discharged from [facility] to SNF at [place] 02/24, hospice pending. She was discharged off of Coumadin. She got 1 unit of blood with improvement in her hemoglobin and blood pressure as well Her stool was positive for occult blood. GI was consulted. They did not recommended the intervention at this time. They advanced her diet. - This is the main reason for her admission. (2) Congestive heart failure: Plan: Patient appears euvolemic to slightly hypervolemic but is breathing well at this time. Due to recent low blood pressure readings, being cautious with Torsemide dosing She was discharged with hospice but was recommended to continue taking her water pill to stay comfortable. She is not short of breath or hypoxic at this time. - not the main cause of admission, but may become an issue with holding diuretics (3) Hyponatremia: Plan: -Sodium of 125 at time of admission. Most likely related to hypervolemia and fluid overload (4) Atrial fibrillation: (5) Chronic lower back pain: Plan: Most likely due to the intramuscular iliopsoas hematoma. No Dilaudid or medications that could lower her blood pressure. (6) Hypothyroidism: Plan: -Discharge meds from [facility] shows levothyroxine 25 mcg. (7) H/O mechanical aortic valve replacement: Plan: Coumadin has been discontinued because of intramuscular hematoma in the left iliopsoas muscle Patient was discharged on hospice Consult palliative care to address this (8) Discharge planning issues: Plan: -Patient left [facility] AMA, went to son's house and was immediately brought to the hospital by EMS. -Currently homeless. - awaiting goals of care decision with palliative care. Psych consulted per palliative care recommendation for decision making capacity. (9) History of permanent cardiac pacemaker placement: Plan DNR/DNI DVT PPx: No chem PPx due to active bleed Admission and Anticipated Discharge Date Admission Date: February 26, 2024 Subjective Pt is complaining of pain in her back. She is also anxious. She spoke to palliative care. No decisions yet. Review of Systems Review of Systems: All systems reviewed & are unremarkable except as noted in Subjective Physical Exam Physical Exam: General: Awake, conversant. Appears chronically ill Heart: S1, S2/regular rate and rhythm, no murmur rubs or gallops Lungs: Clear to auscultation bilaterally. Normal effort Abdomen: Soft/nontender. Distended abdomen. Positive for ascites. Extremities: No clubbing/cyanosis. 3+ pitting bilateral edema. Behavior: Appropriate, cooperative Results & Data Results & Data Vital Signs (Past 12 Hours) Vital Signs Temp Pulse Pulse Resp BP Pulse Ox O2 Del Method 02/28/24 12:49 36.8 C 75 18 100/57 L 100 Room Air 02/28/24 07:18 36.6 C 76 18 93/52 L 96 Room Air 02/28/24 07:15 71 02/28/24 03:10 36.6 C 76 18 95/58 L 96 Room Air Laboratory Results Abnormal lab results 02/27/24 02/28/24 02/28/24 Range/Units 21:24 09:06 12:57 RBC 2.39 L (4.20-5.40) M/uL Hgb 7.3 L 7.4 L 7.7 L (12.0-16.0) g/dl Hct 22.7 L 23.7 L 23.7 L (37.0-47.0) % MCHC 31.2 L (32.0-36.0) g/dL RDW Std Deviation 77.4 H (36.4-46.3) fL RDW Coeff of [place] 21.7 H (11.5-14.5) % Sodium 125 L (136-145) mmol/L Chloride 97 L (98-107) mmol/L BUN 57 H (6-23) mg/dl BUN/Creatinine Ratio 50.9 H (10-20) Glucose 147 H (70-99(Fasting)) mg/dl Diagnostic Findings Venous Doppler Study 02/27/24 18:37 Exam(s): US VENOUS BILATERAL LOWER EXTREMITIES EXAM: US Duplex Bilateral Lower Extremities Veins CLINICAL HISTORY: Pain in legs, off anticoagulants. TECHNIQUE: Real-time duplex ultrasound scan of the bilateral lower extremity veins integrating B-mode two-dimensional vascular structure, Doppler spectral analysis, color flow Doppler imaging and compression. COMPARISON: No relevant prior studies available. FINDINGS: Right deep veins: Unremarkable. No DVT in the right common femoral, femoral, proximal deep femoral or popliteal veins. The veins demonstrate normal color flow, are normally compressible, with normal phasic flow and/or augmentation response. The interrogated calf veins are patent. Right superficial veins: Unremarkable. No thrombus in the saphenofemoral junction. Left deep veins: Unremarkable. No DVT in the left common femoral, femoral, proximal deep femoral or popliteal veins. The veins demonstrate normal color flow, are normally compressible, with normal phasic flow and/or augmentation response. The interrogated calf veins are patent. Left superficial veins: Unremarkable. No thrombus in the saphenofemoral junction. Soft tissues: Subcutaneous edema noted from the mid thighs distally involving both lower extremities. No loculated fluid collections. No popliteal cyst. IMPRESSION: No evidence for deep vein thrombosis involving the bilateral lower extremities. Bilateral subcutaneous edema noted. Electronically signed by: Aneudy Newton MD 02/28/24 00:41 AM PG Care Time/CCT Total # of Minutes Spent Total Time Spent with Patient: Total time spent is greater than 50% in coordination of care (as documented) at patient's floor/unit and/or counseling patient: Coding Level of Care Code 12929 SUB INP/OBS CARE 2/35MIN Diagnoses Acute blood loss anemia D62 Congestive heart failure I50.9 Hyponatremia E87.1 Permanent atrial fibrillation I48.2 Atrial fibrillation type: permanent Chronic lower back pain M54.50; G89.29 Hypothyroidism E03.9 H/O mechanical aortic valve replacement Z95.2 Discharge planning issues Z75.8 History of permanent cardiac pacemaker placement Z95.0 (4) Atrial fibrillation Atrial fibrillation type: permanent Qualified Code(s): I48.2 - Chronic atrial fibrillation
[2024-02-28] MEDS ORDERED: WARFARIN SOD 2 MG TAB PO SCH (16:00)
[2024-02-28 21:29] LABS: Hemoglobin 7.5 g/dl (12.0-16.0)
[2024-02-29] MEDS: hydrOXYzine HCl 10 MG TAB PO ONE (00:36)
[2024-02-29 06:27] LABS: Hematocrit (blood only) 23.9 % (37.0-47.0); Hemoglobin 7.5 g/dl (12.0-16.0); Mean Corpuscular Hemoglobin 31.1 pg (25.0-34.0); Mean Corpuscular Hgb Conc 31.4 g/dL (32.0-36.0); Mean Corpuscular Volume 99.2 fL (80.0-100.0); Mean Platelet Volume 9.3 fL (9.4-12.4); Platelet Count 236 K/uL (130-400); RDW Coefficient of Variation 21.2 % (11.5-14.5); RDW Standard Deviation 76.1 fL (36.4-46.3); Red Blood Count 2.41 M/uL (4.20-5.40); White Blood Count 6.07 K/ul (4.8-10.8)
[2024-02-29 06:38] LABS: INR 1.1 (0.9-1.1); Prothrombin Time 11.4 Seconds (9.0-12.0)
[2024-02-29 06:46] LABS: BUN Creatinine Ratio 52.2 (10-20); Calcium 9.1 mg/dl (8.6-10.3); Creatinine Clr Calc Pharmacy 53.1 ml/min; Est GFR (African American) 59.1 ml/min; Potassium 6.5 mmol/L (3.5-5.1)
[2024-02-29] MEDS: CALCIUM GLUCONATE 1,000 MG/60 ML BAG IV STA (10:53)
--- NOTE | 2024-02-29 10:55 | Psychiatric Consultation ---
Date of Consultation February 29, 2024 Impression / Recommendations Impression Dilma Hogan is a 63 yo woman with a history of HFpEF, rheumatic heart disease s/p MVR + TVR (multiple redo's, most recent 12/29), PAF on warfarin, AV block with PPM, DM2, (?)cardiac cirrhosis with frequent paracenteses and chronic hyponatremia, fractured her shoulder from a fall and recurrent bleeding requiring recent transfusions. Psychiatry consulted for decision making capacity evaluation regarding disposition and use of blood thinners. She is certainly in a challenging situation given the need to balance anticoagulation vs bleeding risk and coming to terms with her inability to receive a heart transplant and worsening cardiac decompensation. In spite of this she denies symptoms of major depression and remains resourceful, resilient and is looking into various options for disposition. It seems that today her goals of care are much more consistent with those of the medical team in terms of what is deemed reasonable and most likely to offer her the best quality of life. I agree with palliative care consultation assessment that she is likely struggling with acceptance of her worsening condition and at times her decisions may fluctuate if she starts to go into a state of denial. Today it seems she is accepting of the limitations of treatment at this point and wants to focus on how to ensure her conditions are managed as optimally as possible and with as little pain as possible. From psychiatric standpoint, mirtazapine may be able to offer some benefit in reducing anxiety and helping with sleep though defer to hospitalist and palliative care in case an alternative option such a sedating p ain medication is preferred. In terms of medication for as needed anxiety, would utilize benzodiazepines given focus on comfort care/more rapid symptom relief. Choice of benzodiazepine can be dictated by desired rapidity of action/level of sedation desired i.e. Klonopin for longer acting if utilizing for sleep promotion, Ativan for shorter acting, Xanax for more rapid relief (though caution that this can increase risk for rebound anxiety/panic symptoms), again defer to palliative care. In terms of decision making capacity she is felt to have decision making capacity for disposition and medical decisions about withholding or selecting treatments at this time. Of note decision making capacity is decision and time specific and can exchange teller time, especially if delirium develops or cognition becomes impacted as cardiac decompensation worsens. If in the future she requests interventions that are felt to be futile or go against evidence based practice would encouragement collaborative discussions between Dilma, hospitalists, palliative care, surrogate decision makers and ethics if needed. Assessment of Decision-Making Capacity Criterion Patient Task Yes Communicates a choice Patient is able to clearly indicate preferred treatment option in a clear and consistent manner. So far today has been consistent across providers. Yes Understands information provided Patient understands their condition and treatment options Yes Appreciates consequences Patient shows appropriately nuanced appreciation for the risks & benefits associated with available treatment options, including no treatment Yes Manipulates relevant information Patient able to rationally weigh risks & benefits, as well as offer reasons for their decision Overall, I spent a total of 65 minutes with this case including review of chart records, review of labwork, review of EKG QTc, direct evaluation of the patient at bedside, counseling the patient, discussion of the patient with the Nurse and with the hospitalist provider, discussion with the psychiatric liason during clinical rounds and documentation in the electronic health record. (1) Encounter for assessment of decision-making capacity: (2) Anxiety: (3) Insomnia: (4) Congestive heart failure: Heart failure chronicity: chronic Heart failure type: unspecified Qualified Code(s): I50.9 - Heart failure, unspecified (5) Hyponatremia: (6) Discharge planning issues: Plan -Consider use of mirtazapine 7.5mg HS with option for additional 7.5mg HS prn for insomnia/anxiety (this may worsen hyponatremia and prolonged QTc) -Consider use of benzodiazepines as prn option for anxiety Psych History Identifying Data Dilma Hogan is a 63 yo woman with a history of HFpEF, rheumatic heart disease s/p MVR + TVR (multiple redo's, most recent 12/29), PAF on warfarin, AV block with PPM, DM2, (?)cardiac cirrhosis with frequent paracenteses and chronic hyponatremia, fractured her shoulder from a fall and recurrent bleeding requiring recent transfusions. Psychiatry consulted for decision making capacity evaluation regarding disposition and use of blood thinners. Chief Complaint "I know I can make my own decisions, I'm very smart". History of Present Illness Dilma has a long history of cardiac problems with mechanical valves on anticoagulation therapy, recent worsening heart failure and recurrent bleeding necessitating difficult decisions about risks of bleeding on anticoagulation vs risks of potential blood clots on mechanical valve if anticoagulation is held. For further details of recent medical conditions please see the very thorough palliative care consultation note on 02/28/2024. Unfortunately she was deemed to not be a candidate for a heart transplant and after a prolonged recent hospitalization at [facility], she was discharged to a local usp. She reports that she was placed on a dementia unit there and so left the facility and went to her son's home to figure out what her next step should be. Reports her son screamed at her, which she believes is due to his alcohol use disorder, noting he has a history of misuse and multiple prior DUIs, and this further overwhelmed her. She plans to have no further contact with him. Today she is fully oriented and cooperative. She can state her decision of wanting hospice care and to leave the inpatient setting as soon as possible once an appropriate disposition plan is in place. She is hopeful to be placed somewhere that will give her access to comfort care focused measures and not be around individuals with dementia. She also states her decision to avoid anticogulation while she has bleeding events. She references having a large support system, stating "my support system and I are hoping the bleeding will stop so I can resume blood thinners". She notes that if in the future her bleeding stops then she would be interested in reviewing the most appropriate anticoagulation options which she notes might be "coumadin or lovenox or maybe even just baby aspirin". She believes the [facility] providers will help guide her decision once the bleeding stops. She is experiencing anxiety throughout the day and has difficulty sleeping. She has a friend who uses CBD oil and THC to help with sleep. She has not tried mirtazapine (Remeron) before, but is open to trying it if deemed safe in the context of her other medical conditions. She has also undergone a saliva test for gene typing to determine the best antidepressant for her, but understands that the test may not be conclusive when we discuss it's limitations. She has a boyfriend, Jefry, who lives in [place], [place], and is her biggest support. She would like to explore hospice facilities/living options in that area. She feels that her family did not take her relationship with her boyfriend into consideration when making decisions about her care. She reports still finding pleasure and enjoyment from activities including eating foods she enjoys and "goofing around" with her boyfriend. She denies any suicidal ideation. Allergies Allergy/AdvReac Type Severity Reaction Status Date / Time adhesive Allergy Intermediate rash Verified 01/21/23 17:49 fluoxetine Allergy Intermediate Rash Verified 01/21/23 17:49 mushroom Allergy Intermediate EYES Verified 01/21/23 17:49 SWELLED hydrocodone Allergy Unknown ON MED LIST Verified 01/21/23 17:49 levofloxacin [From Levaquin] Allergy Unknown ON MED LIST Verified 01/21/23 17:49 azithromycin AdvReac Severe Tachycardia Verified 01/21/23 17:49 [From Zithromax Z-Anton] /A-FIB Estrogens AdvReac Severe CHF Verified 01/21/23 17:49 lorazepam AdvReac Severe mental Verified 01/21/23 17:49 status change prednisone AdvReac Severe LOW BP D/T Verified 01/21/23 17:49 FLUID SHIFT acetaminophen [From Tylenol] AdvReac Intermediate D/T LIVER Verified 01/21/23 17:49 ISSUES aspirin AdvReac Intermediate CONTRAINDICATED Verified 01/21/23 17:49 WITH COUMADIN PER PT. cephalexin AdvReac Intermediate Tachycardia Verified 01/21/23 17:49 codeine AdvReac Intermediate Shakiness Verified 01/21/23 17:49 Corticosteroids AdvReac Intermediate HYPOTENSION Verified 01/21/23 17:49 (Glucocorticoids) doxycycline AdvReac Intermediate LEGS SWELL Verified 01/21/23 17:49 fluocinonide AdvReac Intermediate Tachycardia Verified 01/21/23 17:49 NSAIDS (Non-Steroidal AdvReac Intermediate HYPOTENSION Verified 01/21/23 17:49 Anti-Inflamma zolpidem [From Ambien] AdvReac Intermediate MENTAL Verified 01/21/23 17:49 STATUS CHANGE Anti-Depressents Allergy Unknown SEE COMMENT Uncoded 01/21/23 17:49 Home Medications Medication Instructions Recorded Confirmed Type warfarin 1 mg tablet (Jantoven) 2 mg PO 3XWK 07/03/22 01/30/23 History warfarin 1 mg tablet (Jantoven) 4 mg PO 4XWK 07/03/22 01/30/23 History torsemide 100 mg tablet 100 mg PO BID 10/05/22 01/30/23 History coenzyme Q10 100 mg capsule 100 mg PO DAILY 01/21/23 01/30/23 History (CoQ-10) ferrous sulfate 325 mg (65 mg 325 mg PO DIRECTED PRN 01/21/23 01/30/23 History iron) tablet,delayed release NEEDED PER MED LIST hydroxyzine HCl 10 mg tablet 10 mg PO Q8H PRN Anxiety 01/21/23 01/30/23 History magnesium oxide 400 mg (241.3 mg 400 mg PO BID 01/21/23 01/30/23 History magnesium) tablet metoprolol succinate 25 mg 25 mg PO QAM 01/21/23 01/30/23 History tablet,extended release 24 hr mirtazapine 7.5 mg tablet 22.5 mg PO HS 01/21/23 01/30/23 History multivitamin-iron 9 mg-folic acid 1 tab PO QAM 01/21/23 01/30/23 History 400 mcg-calcium and minerals tablet (Thera M Plus (ferrous fumarate)) oxycodone 5 mg tablet 5 mg PO Q6H PRN Pain 01/21/23 01/30/23 History pantoprazole 20 mg tablet,delayed 20 mg PO DAILYBB 01/21/23 01/30/23 History release Multi Vitamin 1 mg PO DAILY 01/30/23 01/30/23 History potassium chloride 10 mEq 50 meq PO BID 01/30/23 01/30/23 History tablet,extended release oxycodone 5 mg tablet 5 mg PO Q6 PRN pain #12 tabs 02/16/23 Rx Patient History Medical History Gallstones Anticoagulant-induced bleeding Acute blood loss anemia Pulmonary hypertension Tricuspid stenosis Rheumatic cardiomyopathy Elevated LFTs Hyponatremia Hyperkalemia Supratherapeutic INR Hematoma of left thigh Anemia Elevated LDH Post traumatic stress disorder Diverticular disease Hernia X2 Right-sided heart failure Acute kidney injury Chronic cor pulmonale Tricuspid stenosis, acquired due to prior tricuspid valve repair Mitral stenosis Pacemaker Surgical History History of heart valve replacement H/O tricuspid valve repair S/P MVR (mitral valve replacement) History of endoscopic sinus surgery ATTEMPTED TO CAUTERIZE 05/14, UNABLE, PATIENT IN PAIN AND BLEEDING History of cardiac cath 1983, 2003, NO STENTS ROUTINE History of placement of ear tubes History of tubal ligation H/O tricuspid valve repair initial - 1985; repeat TV repair 2004 History of cardiac radiofrequency ablation for a.fib - 2003 [place] teeth removed H/O tympanostomy History of bilateral tubal ligation H/O mitral valve replacement 1985, initial MVR at [facility] [address] [facility] Mechanical valve; INR goal 2.5-3.5 H/O tricuspid valve repair Family History Mother , 60s Gastric cancer Father , age 65 Lung cancer Social History Smoking Status: Current some day smoker Tobacco Type: Cigarettes packs per day: 0.5; Cigarettes Per Day: 10; Second Hand Exposure: No; Do You Dip or Chew Tobacco: No; Tobacco Cessation Education Requested by Patient: No Hx Alcohol Use: Yes Alcohol type: beer Hx Substance Use: No Preferred Language: Spanish Communication Ability: Effective Visual Impairment: Limited Hearing Ability: Normal Ballroom Dancer Required: No Beliefs That Will Affect Care: None marital status: marital status details: 1 son Current Living Situation: Alone Current Living Situation Comment: Patient lives alone in a second story apartment current occupational status: employed 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 [employer] Feels Safe at Home: Yes Safety Concerns: Feels Safe At This Time Diet Comment: Mediterranean caffeine: Yes during the past year weight has: increased > 10 lbs Assistive Devices: Walker Physical Exam Psychiatric: Orientation: alert and oriented x 3 Apperance: appropriately dressed (in hospital gown, slightly askew, thin) Eye Contact: good eye contact Motor Behavior: no abnormal motor movements Speech: normal rate/rhythm/volume of speech Affect: + constricted affect (but smiles at times) Mood: + anxious mood Thought Process: goal directed thought process Thought Content: reality based without delusions Suicidal Thoughts: denies suicidal thoughts Homicidal Thoughts: denies homicidal thoughts Hallucinations: no auditory hallucinations and no visual hallucinations Cognition: attention grossly intact and language grossly intact Estimated Intelligence: consistent with education level Insight: + fair insight Judgment: + limited judgement Vital Signs (Past 24 Hours): Last Vital Signs Temp 36.4 C L 02/29/24 02:31 Pulse 71 02/29/24 10:11 Resp 18 02/29/24 08:04 BP 93/58 L 02/29/24 08:04 Pulse Ox 100 02/29/24 08:04 O2 Del Method Room Air 02/29/24 08:04 Results & Data (PSY) Medications Administered Acetaminophen (Acetaminophen 500 Mg Tab) 500 mg PO Q4H PRN PRN Reason: Pain Stop: 03/27/24 17:30 Last Admin: 02/28/24 03:54 Dose: 500 mg Documented By: Admin: 02/27/24 21:33 Dose: 500 mg Documented By: Admin: 02/27/24 10:14 Dose: 500 mg Documented By: EVAN Pantoprazole Sodium 40 mg/ (Syringe) 10 mls @ 5 mls/min IV BID MIKIE Stop: 03/27/24 20:59 Last Admin: 02/29/24 10:12 Dose: 5 mls/min Documented By: Admin: 02/28/24 20:57 Dose: 5 mls/min Documented By: Admin: 02/28/24 08:22 Dose: 5 mls/min Documented By: Admin: 02/27/24 21:28 Dose: 5 mls/min Documented By: Admin: 02/27/24 08:10 Dose: 5 mls/min Documented By: Admin: 02/26/24 20:18 Dose: 5 mls/min Documented By: VINCENZO Acetaminophen (Ofirmev) 1,000 mg in 100 mls @ 400 mls/hr IV Q8H PRN PRN Reason: Pain or Fever Stop: 02/29/24 20:42 Last Infusion: 02/28/24 11:05 Dose: Infused Documented By: Admin: 02/28/24 10:50 Dose: 400 mls/hr Documented By: Infusion: 02/26/24 21:33 Dose: Infused Documented By: Admin: 02/26/24 21:18 Dose: 400 mls/hr Documented By: Levothyroxine Sodium (Levothyroxine Sodium 25 Mcg Tablet) 25 mcg PO DAILYBB MIKIE Stop: 03/27/24 06:29 Last Admin: 02/29/24 07:35 Dose: 25 mcg Documented By: Admin: 02/28/24 06:38 Dose: 25 mcg Documented By: Admin: 02/27/24 06:50 Dose: 25 mcg Documented By: Admin: 02/26/24 06:58 Dose: 25 mcg Documented By: OLGA Torsemide (Torsemide 100 Mg Tab) 100 mg PO BID MIKIE Stop: 03/27/24 08:59 Last Admin: 02/26/24 08:59 Dose: Not Given Documented By: PAT Coding Level of Care Code 17800 IN/OBS CONSULT LVL 4,60M Diagnoses Encounter for assessment of decision-making capacity Z00.8 Anxiety F41.9 Insomnia G47.00 Congestive heart failure I50.9 Heart failure chronicity: chronic Heart failure type: unspecified Hyponatremia E87.1 Discharge planning issues Z75.8
[2024-02-29] MEDS: DEXTROSE 50% 50 ML SYRINGE IV STA (10:56)
[2024-02-29] MEDS: INSULIN HUMAN REGULAR PER UNIT 10 UNITS in SYRINGE 9.9 ML IV STA (10:57)
[2024-02-29] MEDS ORDERED: MoRPHine SULFATE 10 MG/0.5 ML UDP PO PRN (11:00)
[2024-02-29] MEDS ORDERED: LORazepam 0.5 MG TAB PO PRN (11:00)
[2024-02-29] MEDS ORDERED: GLYCOPYRROLATE 0.2 MG/ML VIAL IV PRN ×2 (11:00→12:02)
[2024-02-29] MEDS ORDERED: LORazepam 0.5 MG in SYRINGE 0.25 ML IV PRN (11:00)
[2024-02-29] MEDS ORDERED: ONDANSETRON 4 MG OD TAB SL PRN (11:00)
--- NOTE | 2024-02-29 11:09 | Hospitalist Progress Note ---
Date of Service February 29, 2024 Assessment & Plan (1) Acute blood loss anemia: Plan: In the setting of being on anticoagulation due to mechanical valves Coumadin held even though there is a risk of thrombosis due to mechanical valves. INR 1 Intramuscular hematoma in the left iliopsoas muscle. The patient also has a history of GI bleed in the past. The patient was discharged from [facility] to SNF at [facility] 02/24, hospice pending. She was discharged off of Coumadin. She got 1 unit of blood with improvement in her hemoglobin and blood pressure as well Her stool was positive for occult blood. GI was consulted. They did not recommended the intervention at this time. They advanced her diet. - This is the main reason for her admission. - Plan to keep Coumadin on hold. - Patient has accepted comfort care. Will stop labs. (2) Congestive heart failure: Plan: Patient appears euvolemic to slightly hypervolemic but is breathing well at this time. Due to recent low blood pressure readings, being cautious with Torsemide dosing She was discharged with hospice but was recommended to continue taking her water pill to stay comfortable. She is not short of breath or hypoxic at this time. - not the main cause of admission, but may become an issue with holding diuretics - She is becoming volume overloaded with increasing ascites and leg swelling. Will resume torsemide. Since patient is now comfort care, will resume diuretics for comfort reasons. (3) Hyponatremia: Plan: -Sodium of 125 at time of admission. Most likely related to hypervolemia and fluid overload D/c lab draws (4) Atrial fibrillation: (5) Chronic lower back pain: Plan: Most likely due to the intramuscular iliopsoas hematoma. Start morphine for pain control, now that comfort care (6) Hypothyroidism: Plan: -Discharge meds from [facility] shows levothyroxine 25 mcg. (7) H/O mechanical aortic valve replacement: Plan: Coumadin has been discontinued because of intramuscular hematoma in the left iliopsoas muscle Pt has decided on comfort care (8) Discharge planning issues: Plan: -Patient left [facility] nursing AMA, went to son's house and was immediately brought to the hospital by EMS. -Currently homeless. - patient has now decided on comfort care. Case management to address dc needs (9) History of permanent cardiac pacemaker placement: Plan DNR/DNI DVT PPx: No chem PPx due to active bleed Admission and Anticipated Discharge Date Admission Date: February 26, 2024 Subjective Patient tells me today that she thought about her options. She chooses to " in comfort rather than with sufferings". She has agreed to comfort care. The conversation was witnessed by DARREN Angel Review of Systems Review of Systems: All systems reviewed & are unremarkable except as noted in Subjective Physical Exam Physical Exam: General: Awake, conversant. Appears chronically ill Heart: S1, S2/regular rate and rhythm, no murmur rubs or gallops Lungs: Clear to auscultation bilaterally. Normal effort Abdomen: Soft/nontender. Distended abdomen. Positive for ascites. Extremities: No clubbing/cyanosis. 3+ pitting bilateral edema. Behavior: Appropriate, cooperative Results & Data Results & Data Vital Signs (Past 12 Hours) Vital Signs Temp Pulse Pulse Resp BP Pulse Ox O2 Del Method 02/29/24 11:01 36.4 C L 71 18 107/69 97 Room Air 02/29/24 10:11 71 02/29/24 08:04 73 18 93/58 L 100 Room Air 02/29/24 05:00 02/29/24 02:31 36.4 C L 74 18 91/52 L 97 Room Air 02/28/24 23:16 36.5 C 75 18 93/53 L 96 Room Air O2 Del Method 02/29/24 11:01 02/29/24 10:11 02/29/24 08:04 02/29/24 05:00 Room Air 02/29/24 02:31 02/28/24 23:16 Laboratory Results Abnormal lab results 02/26/24 02/28/24 02/28/24 Range/Units 09:13 12:57 20:49 RBC (4.20-5.40) M/uL Hgb 7.7 L 7.5 L (12.0-16.0) g/dl Hct 23.7 L 23.0 L (37.0-47.0) % MCHC (32.0-36.0) g/dL RDW Std Deviation (36.4-46.3) fL RDW Coeff of Dunia (11.5-14.5) % MPV (9.4-12.4) fL Sodium (136-145) mmol/L Potassium (3.5-5.1) mmol/L Chloride (98-107) mmol/L BUN (6-23) mg/dl BUN/Creatinine Ratio (10-20) Glucose (70-99(Fasting)) mg/dl Crossmatch See Detail 02/29/24 02/29/24 Range/Units 05:55 08:57 RBC 2.41 L (4.20-5.40) M/uL Hgb 7.5 L (12.0-16.0) g/dl Hct 23.9 L (37.0-47.0) % MCHC 31.4 L (32.0-36.0) g/dL RDW Std Deviation 76.1 H (36.4-46.3) fL RDW Coeff of Dunia 21.2 H (11.5-14.5) % MPV 9.3 L (9.4-12.4) fL Sodium 124 L (136-145) mmol/L Potassium 6.5 H* D 6.4 H* (3.5-5.1) mmol/L Chloride 97 L (98-107) mmol/L BUN 60 H (6-23) mg/dl BUN/Creatinine Ratio 52.2 H (10-20) Glucose 107 H (70-99(Fasting)) mg/dl Crossmatch PG Care Time/CCT Total # of Minutes Spent Total Time Spent with Patient: Total time spent is greater than 50% in coordination of care (as documented) at patient's floor/unit and/or counseling patient: Coding Level of Care Code 96677 SUB INP/OBS CARE 2/35MIN Diagnoses Acute blood loss anemia D62 Congestive heart failure I50.9 Hyponatremia E87.1 Permanent atrial fibrillation I48.2 Atrial fibrillation type: permanent Chronic lower back pain M54.50; G89.29 Hypothyroidism E03.9 H/O mechanical aortic valve replacement Z95.2 Discharge planning issues Z75.8 History of permanent cardiac pacemaker placement Z95.0 (4) Atrial fibrillation Atrial fibrillation type: permanent Qualified Code(s): I48.2 - Chronic atrial fibrillation
[2024-02-29] MEDS ORDERED: HYDROmorphone INJ 0.5 MG/0.5 ML SYR IV PRN ×2 (11:59→12:02)
[2024-02-29] MEDS ORDERED: LORazepam 1 MG in SYRINGE 0.5 ML IV PRN (12:15)
[2024-02-29] MEDS: LORazepam 0.25 MG in SYRINGE 0.125 ML IV STA (13:32)
--- NOTE | 2024-02-29 14:03 | Palliative Care Progress Note ---
Date of Service February 29, 2024 Assessment & Plan (1) Generalized pain: Plan: She is asking for IV options over oral, due to some increasing GI issues Dilaudid 0.25mg and 0.5mg IVP prn ordered Tylenol PO for mild pain Aspercreme topical TID PRN for back related pain (2) Anxiety: Plan: Ativan 0.25mg and 0.5mg IV PRN ordered (3) Weakness generalized: (4) Advanced care planning/counseling discussion: Plan: Face to face with Dilma x 30min She is transitioned to CLIENT ARCHITECT She is aware time may be running short but also notes she still wants to try and make plans for possible move to assisted living from [facility] if she stabilizes and has been reaching out to some facilities. Is awaiting return call from legal and her sister. Asked me to call sister Leesa, also her POA, and update about what's happening with pt at this time. Pt is very clear she does not want her son informed or involved. (5) Leg pain, bilateral: (6) Pain, upper back: (7) Denial as mental defense mechanism: (8) Bilateral leg edema: (9) Palliative care by specialist: Plan As above CLIENT ARCHITECT Thank you for allowing us to participate in the ongoing care of this patient. Please page with any additional concerns. Zane Crews DNP Director, Palliative Medicine Admission and Anticipated Discharge Date Admission Date: February 26, 2024 Subjective Dilma is more tired today, increased back pain and anxiety States she had a very difficult overnight, up and down all night, could not get comfortable, mind was racing with anxiety about her circumstances and her perceived disappointments. Reports more nausea and states she had episodes of diarrhea. Nursing staff advised me she had one formed, normal stool. Appetite ok, does not like hospital food and has been ordering take out She met with primary team earlier, has transitioned to comfort plan of care Review of Systems Review of Systems: All systems reviewed & are unremarkable except as noted in Subjective Physical Exam Physical Exam: Chronically ill-appearing female, seated at edge of bed Mild bitemporal wasting. PERRLA, EOMI's. Neck is supple and without stridor, no gross JVD noted Respiratory effort normal. Mild conversational dyspnea. Lungs are diminished but overall clear. There is some conversational dyspnea with prolonged discussion. S1-S2, + murmur, harsh No JVD Abdomen soft, mildly distended, bowel sounds present Bilateral lower extremities with severe erythematous edema +3 to +4 pitting up to the mid thigh. Vascular insufficiency changes to the lower extremities are noted. Awake alert and oriented x 3. + Tangential, + wishful thinking Skin is pale, warm and otherwise intact. Results & Data Vital Signs (Past 12 Hours) Vital Signs Temp Pulse Pulse Resp BP Pulse Ox O2 Del Method 02/29/24 11:10 Room Air 02/29/24 11:01 36.4 C L 71 18 107/69 97 Room Air 02/29/24 10:11 71 02/29/24 08:04 73 18 93/58 L 100 Room Air 02/29/24 05:00 02/29/24 02:31 36.4 C L 74 18 91/52 L 97 Room Air O2 Del Method 02/29/24 11:10 02/29/24 11:01 02/29/24 10:11 02/29/24 08:04 02/29/24 05:00 Room Air 02/29/24 02:31 Laboratory Results 02/29/24 02/29/24 02/28/24 Range/Units 08:57 05:55 20:49 WBC 6.07 (4.8-10.8) K/ul RBC 2.41 L (4.20-5.40) M/uL Hgb 7.5 L 7.5 L (12.0-16.0) g/dl Hct 23.9 L 23.0 L (37.0-47.0) % MCV 99.2 (80.0-100.0) fL MCH 31.1 (25.0-34.0) pg MCHC 31.4 L (32.0-36.0) g/dL RDW Std Deviation 76.1 H (36.4-46.3) fL RDW Coeff of [place] 21.2 H (11.5-14.5) % Plt Count 236 (130-400) K/uL MPV 9.3 L (9.4-12.4) fL Immature Gran % (Auto) % Neut % (Auto) % Lymph % (Auto) % [place] % (Auto) % Eos % (Auto) % Baso % (Auto) % Neut # (Auto) (1.40-6.50) K/uL Lymph # (Auto) (1.20-3.40) K/uL [place] # (Auto) (0.11-0.59) K/uL Eos # (Auto) (0.00-0.50) K/uL Baso # (Auto) (0.00-0.20) K/uL Immature Gran # (Auto) (0.01-0.20) K/uL Polychromasia Anisocytosis Macrocytosis PT 11.4 (9.0-12.0) Seconds INR 1.1 (0.9-1.1) APTT (21-31) Seconds PTT Ratio Sodium 124 L (136-145) mmol/L Potassium 6.4 H* 6.5 H* D (3.5-5.1) mmol/L Chloride 97 L (98-107) mmol/L Carbon Dioxide 21 (21-32) mmol/L Anion Gap 6 (3-11) BUN 60 H (6-23) mg/dl Creatinine 1.15 (0.6-1.2) mg/dl Est Cr Clr Drug Dosing 53.1 ml/min Est GFR ( Amer) 59.1 ml/min Est GFR (Non-Af Amer) 51.0 ml/min BUN/Creatinine Ratio 52.2 H (10-20) Glucose 107 H (70-99(Fasting)) mg/dl Osmolality (280-300) mOsm/kg Calcium 9.1 (8.6-10.3) mg/dl Phosphorus (2.5-4.9) mg/dl Magnesium (1.7-2.4) mg/dl Total Bilirubin (0.2-1.0) mg/dl Direct Bilirubin (0-0.2) mg/dl AST (13-39) U/L ALT (7-52) U/L Alkaline Phosphatase (34-104) U/L Troponin I High Sens (0-14) pg/ml B-Natriuretic Peptide (0-100) pg/ml Total Protein (6.0-8.3) gm/dl Albumin (3.4-5.0) gm/dl Globulin (2.5-4.0) gm/dl Albumin/Globulin Ratio (0.9-2) TSH (0.300-4.500) uIu/ml Urine Color Urine Appearance (Clear) Urine pH (4.5-7.5) Ur Specific [place] (1.000-1.030) Urine Protein (Negative) Urine Glucose (UA) (Negative) Urine Ketones (Negative) Urine Blood (Negative) Urine Nitrite (Negative) Urine Bilirubin (Negative) Urine Urobilinogen (Negative) Ur Leukocyte Esterase (Negative) Urine Osmolality (500-800) mOsm/kg Stool Occult Bld Scrn (Negative) Blood Type Antibody Screen Antibody Identification Antibody ID Referred Antibody ID Comment Crossmatch 02/28/24 02/28/24 02/27/24 Range/Units 12:57 09:06 21:24 WBC 5.96 (4.8-10.8) K/ul RBC 2.39 L (4.20-5.40) M/uL Hgb 7.7 L 7.4 L 7.3 L (12.0-16.0) g/dl Hct 23.7 L 23.7 L 22.7 L (37.0-47.0) % MCV 99.2 (80.0-100.0) fL MCH 31.0 (25.0-34.0) pg MCHC 31.2 L (32.0-36.0) g/dL RDW Std Deviation 77.4 H (36.4-46.3) fL RDW Coeff of [place] 21.7 H (11.5-14.5) % Plt Count 232 (130-400) K/uL MPV 9.4 (9.4-12.4) fL Immature Gran % (Auto) % Neut % (Auto) % Lymph % (Auto) % [place] % (Auto) % Eos % (Auto) % Baso % (Auto) % Neut # (Auto) (1.40-6.50) K/uL Lymph # (Auto) (1.20-3.40) K/uL [place] # (Auto) (0.11-0.59) K/uL Eos # (Auto) (0.00-0.50) K/uL Baso # (Auto) (0.00-0.20) K/uL Immature Gran # (Auto) (0.01-0.20) K/uL Polychromasia Anisocytosis Macrocytosis PT 11.4 (9.0-12.0) Seconds INR 1.1 (0.9-1.1) APTT (21-31) Seconds PTT Ratio Sodium 125 L (136-145) mmol/L Potassium 4.7 (3.5-5.1) mmol/L Chloride 97 L (98-107) mmol/L Carbon Dioxide 21 (21-32) mmol/L Anion Gap 7 (3-11) BUN 57 H (6-23) mg/dl Creatinine 1.12 (0.6-1.2) mg/dl Est Cr Clr Drug Dosing 54.4 ml/min Est GFR ( Amer) 61.0 ml/min Est GFR (Non-Af Amer) 52.6 ml/min BUN/Creatinine Ratio 50.9 H (10-20) Glucose 147 H (70-99(Fasting)) mg/dl Osmolality (280-300) mOsm/kg Calcium 9.1 (8.6-10.3) mg/dl Phosphorus (2.5-4.9) mg/dl Magnesium (1.7-2.4) mg/dl Total Bilirubin (0.2-1.0) mg/dl Direct Bilirubin (0-0.2) mg/dl AST (13-39) U/L ALT (7-52) U/L Alkaline Phosphatase (34-104) U/L Troponin I High Sens (0-14) pg/ml B-Natriuretic Peptide (0-100) pg/ml Total Protein (6.0-8.3) gm/dl Albumin (3.4-5.0) gm/dl Globulin (2.5-4.0) gm/dl Albumin/Globulin Ratio (0.9-2) TSH (0.300-4.500) uIu/ml Urine Color Urine Appearance (Clear) Urine pH (4.5-7.5) Ur Specific [place] (1.000-1.030) Urine Protein (Negative) Urine Glucose (UA) (Negative) Urine Ketones (Negative) Urine Blood (Negative) Urine Nitrite (Negative) Urine Bilirubin (Negative) Urine Urobilinogen (Negative) Ur Leukocyte Esterase (Negative) Urine Osmolality (500-800) mOsm/kg Stool Occult Bld Scrn (Negative) Blood Type Antibody Screen Antibody Identification Antibody ID Referred Antibody ID Comment Crossmatch 02/27/24 02/27/24 02/26/24 Range/Units 12:38 06:35 Unknown WBC (4.8-10.8) K/ul RBC (4.20-5.40) M/uL Hgb 7.4 L 7.6 L (12.0-16.0) g/dl Hct 22.7 L 23.1 L (37.0-47.0) % MCV (80.0-100.0) fL MCH (25.0-34.0) pg MCHC (32.0-36.0) g/dL RDW Std Deviation (36.4-46.3) fL RDW Coeff of [place] (11.5-14.5) % Plt Count (130-400) K/uL MPV (9.4-12.4) fL Immature Gran % (Auto) % Neut % (Auto) % Lymph % (Auto) % [place] % (Auto) % Eos % (Auto) % Baso % (Auto) % Neut # (Auto) (1.40-6.50) K/uL Lymph # (Auto) (1.20-3.40) K/uL [place] # (Auto) (0.11-0.59) K/uL Eos # (Auto) (0.00-0.50) K/uL Baso # (Auto) (0.00-0.20) K/uL Immature Gran # (Auto) (0.01-0.20) K/uL Polychromasia Anisocytosis Macrocytosis PT 11.2 (9.0-12.0) Seconds INR 1.0 (0.9-1.1) APTT (21-31) Seconds PTT Ratio Sodium 124 L (136-145) mmol/L Potassium 4.7 D (3.5-5.1) mmol/L Chloride 93 L (98-107) mmol/L Carbon Dioxide 21 (21-32) mmol/L Anion Gap 10 (3-11) BUN 65 H (6-23) mg/dl Creatinine 1.09 (0.6-1.2) mg/dl Est Cr Clr Drug Dosing 55.5 ml/min Est GFR ( Amer) 63.0 ml/min Est GFR (Non-Af Amer) 54.4 ml/min BUN/Creatinine Ratio 59.6 H (10-20) Glucose 109 H (70-99(Fasting)) mg/dl Osmolality (280-300) mOsm/kg Calcium 9.4 (8.6-10.3) mg/dl Phosphorus (2.5-4.9) mg/dl Magnesium 2.3 (1.7-2.4) mg/dl Total Bilirubin (0.2-1.0) mg/dl Direct Bilirubin (0-0.2) mg/dl AST (13-39) U/L ALT (7-52) U/L Alkaline Phosphatase (34-104) U/L Troponin I High Sens (0-14) pg/ml B-Natriuretic Peptide (0-100) pg/ml Total Protein (6.0-8.3) gm/dl Albumin (3.4-5.0) gm/dl Globulin (2.5-4.0) gm/dl Albumin/Globulin Ratio (0.9-2) TSH (0.300-4.500) uIu/ml Urine Color Yellow Urine Appearance Clear (Clear) Urine pH 5.5 (4.5-7.5) Ur Specific [place] 1.013 (1.000-1.030) Urine Protein Negative (Negative) Urine Glucose (UA) Negative (Negative) Urine Ketones Negative (Negative) Urine Blood Negative (Negative) Urine Nitrite Negative (Negative) Urine Bilirubin Negative (Negative) Urine Urobilinogen Negative (Negative) Ur Leukocyte Esterase Negative (Negative) Urine Osmolality 309 L (500-800) mOsm/kg Stool Occult Bld Scrn Positive A (Negative) Blood Type Antibody Screen Antibody Identification Antibody ID Referred Antibody ID Comment Crossmatch 02/26/24 02/26/24 02/26/24 Range/Units 21:14 13:17 11:37 WBC (4.8-10.8) K/ul RBC (4.20-5.40) M/uL Hgb 6.6 L* 6.4 L* (12.0-16.0) g/dl Hct 20.5 L* 20.1 L* (37.0-47.0) % MCV (80.0-100.0) fL MCH (25.0-34.0) pg MCHC (32.0-36.0) g/dL RDW Std Deviation (36.4-46.3) fL RDW Coeff of [place] (11.5-14.5) % Plt Count (130-400) K/uL MPV (9.4-12.4) fL Immature Gran % (Auto) % Neut % (Auto) % Lymph % (Auto) % [place] % (Auto) % Eos % (Auto) % Baso % (Auto) % Neut # (Auto) (1.40-6.50) K/uL Lymph # (Auto) (1.20-3.40) K/uL [place] # (Auto) (0.11-0.59) K/uL Eos # (Auto) (0.00-0.50) K/uL Baso # (Auto) (0.00-0.20) K/uL Immature Gran # (Auto) (0.01-0.20) K/uL Polychromasia Anisocytosis Macrocytosis PT (9.0-12.0) Seconds INR (0.9-1.1) APTT (21-31) Seconds PTT Ratio Sodium (136-145) mmol/L Potassium (3.5-5.1) mmol/L Chloride (98-107) mmol/L Carbon Dioxide (21-32) mmol/L Anion Gap (3-11) BUN (6-23) mg/dl Creatinine (0.6-1.2) mg/dl Est Cr Clr Drug Dosing ml/min Est GFR ( Amer) ml/min Est GFR (Non-Af Amer) ml/min BUN/Creatinine Ratio (10-20) Glucose (70-99(Fasting)) mg/dl Osmolality (280-300) mOsm/kg Calcium (8.6-10.3) mg/dl Phosphorus (2.5-4.9) mg/dl Magnesium (1.7-2.4) mg/dl Total Bilirubin (0.2-1.0) mg/dl Direct Bilirubin (0-0.2) mg/dl AST (13-39) U/L ALT (7-52) U/L Alkaline Phosphatase (34-104) U/L Troponin I High Sens (0-14) pg/ml B-Natriuretic Peptide (0-100) pg/ml Total Protein (6.0-8.3) gm/dl Albumin (3.4-5.0) gm/dl Globulin (2.5-4.0) gm/dl Albumin/Globulin Ratio (0.9-2) TSH (0.300-4.500) uIu/ml Urine Color Urine Appearance (Clear) Urine pH (4.5-7.5) Ur Specific [place] (1.000-1.030) Urine Protein (Negative) Urine Glucose (UA) (Negative) Urine Ketones (Negative) Urine Blood (Negative) Urine Nitrite (Negative) Urine Bilirubin (Negative) Urine Urobilinogen (Negative) Ur Leukocyte Esterase (Negative) Urine Osmolality (500-800) mOsm/kg Stool Occult Bld Scrn (Negative) Blood Type Antibody Screen Antibody Identification Antibody ID Referred Pending Antibody ID Comment Crossmatch 02/26/24 02/26/24 02/26/24 Range/Units 09:13 09:13 09:13 WBC (4.8-10.8) K/ul RBC (4.20-5.40) M/uL Hgb (12.0-16.0) g/dl Hct (37.0-47.0) % MCV (80.0-100.0) fL MCH (25.0-34.0) pg MCHC (32.0-36.0) g/dL RDW Std Deviation (36.4-46.3) fL RDW Coeff of [place] (11.5-14.5) % Plt Count (130-400) K/uL MPV (9.4-12.4) fL Immature Gran % (Auto) % Neut % (Auto) % Lymph % (Auto) % [place] % (Auto) % Eos % (Auto) % Baso % (Auto) % Neut # (Auto) (1.40-6.50) K/uL Lymph # (Auto) (1.20-3.40) K/uL [place] # (Auto) (0.11-0.59) K/uL Eos # (Auto) (0.00-0.50) K/uL Baso # (Auto) (0.00-0.20) K/uL Immature Gran # (Auto) (0.01-0.20) K/uL Polychromasia Anisocytosis Macrocytosis PT (9.0-12.0) Seconds INR (0.9-1.1) APTT (21-31) Seconds PTT Ratio Sodium (136-145) mmol/L Potassium (3.5-5.1) mmol/L Chloride (98-107) mmol/L Carbon Dioxide (21-32) mmol/L Anion Gap (3-11) BUN (6-23) mg/dl Creatinine (0.6-1.2) mg/dl Est Cr Clr Drug Dosing ml/min Est GFR ( Amer) ml/min Est GFR (Non-Af Amer) ml/min BUN/Creatinine Ratio (10-20) Glucose (70-99(Fasting)) mg/dl Osmolality (280-300) mOsm/kg Calcium (8.6-10.3) mg/dl Phosphorus (2.5-4.9) mg/dl Magnesium (1.7-2.4) mg/dl Total Bilirubin (0.2-1.0) mg/dl Direct Bilirubin (0-0.2) mg/dl AST (13-39) U/L ALT (7-52) U/L Alkaline Phosphatase (34-104) U/L Troponin I High Sens (0-14) pg/ml B-Natriuretic Peptide (0-100) pg/ml Total Protein (6.0-8.3) gm/dl Albumin (3.4-5.0) gm/dl Globulin (2.5-4.0) gm/dl Albumin/Globulin Ratio (0.9-2) TSH (0.300-4.500) uIu/ml Urine Color Urine Appearance (Clear) Urine pH (4.5-7.5) Ur Specific [place] (1.000-1.030) Urine Protein (Negative) Urine Glucose (UA) (Negative) Urine Ketones (Negative) Urine Blood (Negative) Urine Nitrite (Negative) Urine Bilirubin (Negative) Urine Urobilinogen (Negative) Ur Leukocyte Esterase (Negative) Urine Osmolality (500-800) mOsm/kg Stool Occult Bld Scrn (Negative) Blood Type Antibody Screen Antibody Identification Anti-S Anti-K Anti-Fya Antibody ID Referred Antibody ID Comment Cancelled Crossmatch See Detail 02/26/24 02/26/24 02/26/24 Range/Units 09:13 09:13 08:10 WBC 4.87 (4.8-10.8) K/ul RBC 2.02 L (4.20-5.40) M/uL Hgb 6.4 L* (12.0-16.0) g/dl Hct 20.1 L* (37.0-47.0) % MCV 99.5 (80.0-100.0) fL MCH 31.7 (25.0-34.0) pg MCHC 31.8 L (32.0-36.0) g/dL RDW Std Deviation 73.8 H (36.4-46.3) fL RDW Coeff of [place] 20.7 H (11.5-14.5) % Plt Count 222 (130-400) K/uL MPV 9.3 L (9.4-12.4) fL Immature Gran % (Auto) 1.2 % Neut % (Auto) 76.0 % Lymph % (Auto) 3.7 % [place] % (Auto) 13.6 % Eos % (Auto) 4.9 % Baso % (Auto) 0.6 % Neut # (Auto) 3.70 (1.40-6.50) K/uL Lymph # (Auto) 0.18 L (1.20-3.40) K/uL [place] # (Auto) 0.66 H (0.11-0.59) K/uL Eos # (Auto) 0.24 (0.00-0.50) K/uL Baso # (Auto) 0.03 (0.00-0.20) K/uL Immature Gran # (Auto) 0.06 (0.01-0.20) K/uL Polychromasia 1+ Anisocytosis Macrocytosis Present PT 11.4 (9.0-12.0) Seconds INR 1.1 (0.9-1.1) APTT (21-31) Seconds PTT Ratio Sodium 125 L (136-145) mmol/L Potassium 3.9 (3.5-5.1) mmol/L Chloride 93 L (98-107) mmol/L Carbon Dioxide 24 (21-32) mmol/L Anion Gap 8 (3-11) BUN 68 H (6-23) mg/dl Creatinine 1.08 (0.6-1.2) mg/dl Est Cr Clr Drug Dosing 48.6 ml/min Est GFR ( Amer) 63.7 ml/min Est GFR (Non-Af Amer) 55.0 ml/min BUN/Creatinine Ratio 63.0 H (10-20) Glucose 108 H (70-99(Fasting)) mg/dl Osmolality (280-300) mOsm/kg Calcium 8.8 (8.6-10.3) mg/dl Phosphorus (2.5-4.9) mg/dl Magnesium (1.7-2.4) mg/dl Total Bilirubin 1.0 (0.2-1.0) mg/dl Direct Bilirubin (0-0.2) mg/dl AST 29 (13-39) U/L ALT 16 (7-52) U/L Alkaline Phosphatase 155 H (34-104) U/L Troponin I High Sens (0-14) pg/ml B-Natriuretic Peptide (0-100) pg/ml Total Protein 6.8 (6.0-8.3) gm/dl Albumin 3.5 (3.4-5.0) gm/dl Globulin 3.3 (2.5-4.0) gm/dl Albumin/Globulin Ratio 1.1 (0.9-2) TSH 3.600 (0.300-4.500) uIu/ml Urine Color Urine Appearance (Clear) Urine pH (4.5-7.5) Ur Specific [place] (1.000-1.030) Urine Protein (Negative) Urine Glucose (UA) (Negative) Urine Ketones (Negative) Urine Blood (Negative) Urine Nitrite (Negative) Urine Bilirubin (Negative) Urine Urobilinogen (Negative) Ur Leukocyte Esterase (Negative) Urine Osmolality (500-800) mOsm/kg Stool Occult Bld Scrn (Negative) Blood Type O Positive Antibody Screen POSITIVE A Antibody Identification Anti-E Anti-CW Antibody ID Referred Antibody ID Comment Crossmatch 02/26/24 02/26/24 02/26/24 Range/Units 02:02 00:16 00:10 WBC 5.34 (4.8-10.8) K/ul RBC 2.20 L (4.20-5.40) M/uL Hgb 7.0 L (12.0-16.0) g/dl Hct 21.7 L (37.0-47.0) % MCV 98.6 (80.0-100.0) fL MCH 31.8 (25.0-34.0) pg MCHC 32.3 (32.0-36.0) g/dL RDW Std Deviation 75.0 H (36.4-46.3) fL RDW Coeff of [place] 21.2 H (11.5-14.5) % Plt Count 234 (130-400) K/uL MPV 9.2 L (9.4-12.4) fL Immature Gran % (Auto) 0.9 % Neut % (Auto) 80.0 % Lymph % (Auto) 3.6 % [place] % (Auto) 10.9 % Eos % (Auto) 3.7 % Baso % (Auto) 0.9 % Neut # (Auto) 4.27 (1.40-6.50) K/uL Lymph # (Auto) 0.19 L (1.20-3.40) K/uL [place] # (Auto) 0.58 (0.11-0.59) K/uL Eos # (Auto) 0.20 (0.00-0.50) K/uL Baso # (Auto) 0.05 (0.00-0.20) K/uL Immature Gran # (Auto) 0.05 (0.01-0.20) K/uL Polychromasia 1+ Anisocytosis Present Macrocytosis PT 11.2 (9.0-12.0) Seconds INR 1.0 (0.9-1.1) APTT 31 (21-31) Seconds PTT Ratio 1.2 Sodium 125 L (136-145) mmol/L Potassium 3.9 (3.5-5.1) mmol/L Chloride 93 L (98-107) mmol/L Carbon Dioxide 23 (21-32) mmol/L Anion Gap 9 (3-11) BUN 70 H (6-23) mg/dl Creatinine 1.25 H (0.6-1.2) mg/dl Est Cr Clr Drug Dosing 42.0 ml/min Est GFR ( Amer) 53.4 ml/min Est GFR (Non-Af Amer) 46.1 ml/min BUN/Creatinine Ratio 56.0 H (10-20) Glucose 124 H (70-99(Fasting)) mg/dl Osmolality 289 (280-300) mOsm/kg Calcium 9.4 (8.6-10.3) mg/dl Phosphorus 4.4 (2.5-4.9) mg/dl Magnesium 2.2 (1.7-2.4) mg/dl Total Bilirubin 1.1 H (0.2-1.0) mg/dl Direct Bilirubin 0.3 H (0-0.2) mg/dl AST 32 (13-39) U/L ALT 19 (7-52) U/L Alkaline Phosphatase 181 H (34-104) U/L Troponin I High Sens 32.6 H 32.3 H (0-14) pg/ml B-Natriuretic Peptide 586 H (0-100) pg/ml Total Protein 7.4 (6.0-8.3) gm/dl Albumin 3.8 (3.4-5.0) gm/dl Globulin (2.5-4.0) gm/dl Albumin/Globulin Ratio (0.9-2) TSH (0.300-4.500) uIu/ml Urine Color Urine Appearance (Clear) Urine pH (4.5-7.5) Ur Specific [place] (1.000-1.030) Urine Protein (Negative) Urine Glucose (UA) (Negative) Urine Ketones (Negative) Urine Blood (Negative) Urine Nitrite (Negative) Urine Bilirubin (Negative) Urine Urobilinogen (Negative) Ur Leukocyte Esterase (Negative) Urine Osmolality (500-800) mOsm/kg Stool Occult Bld Scrn (Negative) Blood Type Antibody Screen Antibody Identification Antibody ID Referred Antibody ID Comment Crossmatch Diagnostic Findings Abdomen/Pelvis CT 02/26/24 13:01 CT abd pelvis wo con CLINICAL HISTORY: abd distension TECHNIQUE: Helical axial images of the abdomen and pelvis were obtained. Automated dose lowering techniques and/or adjustment according to patient size were utilized for this exam. This exam was performed without intravenous contrast. CT DOSE: 810.54 mGy.cm COMPARISON: Comparison is made to CT abdomen pelvis 01/22/2023 FINDINGS: Lower chest: Bibasilar atelectasis versus scarring is seen. Liver: Mild hepatomegaly is seen. Gallbladder and biliary tree: Cholelithiasis is seen without evidence of cholecystitis. No intra- or extrahepatic biliary ductal dilation. Pancreas: Unremarkable, no focal lesions. Spleen: Unremarkable. Adrenals: Unremarkable. Kidneys and ureters: Unremarkable. Bladder: Unremarkable. Reproductive organs: Unremarkable. Bowel: Diverticulosis is seen without evidence of diverticulitis. Lymph nodes Retroperitoneal: Subcentimeter lymph nodes are noted. Pelvic: Unremarkable. Mesenteric: Unremarkable. Peritoneum: Mild ascites is seen. Vessels: Unremarkable. Abdominal wall: A fat-containing umbilical hernia is seen. Prominent intramuscular hematoma is seen in the left iliopsoas measuring up to 8.3 x 5.5 cm. Bones: Mild degenerative changes are seen. IMPRESSION: Intramuscular hematoma in the left iliopsoas. Stable mild ascites, similar to prior exam. ACT 112: Negative or not required by law. Electronically signed by: Anthony Poe M.D. 02/26/2024 3:22 PM Venous Doppler Study 02/27/24 18:37 Exam(s): US VENOUS BILATERAL LOWER EXTREMITIES EXAM: US Duplex Bilateral Lower Extremities Veins CLINICAL HISTORY: Pain in legs, off anticoagulants. TECHNIQUE: Real-time duplex ultrasound scan of the bilateral lower extremity veins integrating B-mode two-dimensional vascular structure, Doppler spectral analysis, color flow Doppler imaging and compression. COMPARISON: No relevant prior studies available. FINDINGS: Right deep veins: Unremarkable. No DVT in the right common femoral, femoral, proximal deep femoral or popliteal veins. The veins demonstrate normal color flow, are normally compressible, with normal phasic flow and/or augmentation response. The interrogated calf veins are patent. Right superficial veins: Unremarkable. No thrombus in the saphenofemoral junction. Left deep veins: Unremarkable. No DVT in the left common femoral, femoral, proximal deep femoral or popliteal veins. The veins demonstrate normal color flow, are normally compressible, with normal phasic flow and/or augmentation response. The interrogated calf veins are patent. Left superficial veins: Unremarkable. No thrombus in the saphenofemoral junction. Soft tissues: Subcutaneous edema noted from the mid thighs distally involving both lower extremities. No loculated fluid collections. No popliteal cyst. IMPRESSION: No evidence for deep vein thrombosis involving the bilateral lower extremities. Bilateral subcutaneous edema noted. Electronically signed by: Aneudy Newton MD 02/28/24 00:41 AM PG Care Time/CCT Total # of Minutes Spent Total Time Spent with Patient: Total time spent is greater than 50% in coordination of care (as documented) at patient's floor/unit and/or counseling patient: I spent 80 minutes overall addressing this case: 10 min in medical data review/discussion with referring provider(s) and/or preparation for the visit 15 min in direct interaction with the patient/exam 30 min in Advance Care Planning/Goals of Care discussions as detailed above in note (must be >16min) 10 min in subsequent review and synthesis of assessment and plan 15 min communicating with other providers regarding the patient's case: primary team and nursing Advanced Care Planning 24847 Advanced Care Planning 30 Min [place] [address] SUB INP/OBS CARE 3/50MIN (25 - SIGNIFICANT, SEPARATELY IDENTIFIABLE ) Patient Type Established Medical Decision Making High Complexity Diagnoses Generalized pain R52 Anxiety F41.9 Weakness generalized R53.1 Advanced care planning/counseling discussion Z71.89 Leg pain, bilateral M79.604; M79.605 Pain, upper back M54.9 Denial as mental defense mechanism R45.89 Bilateral leg edema R60.0 Palliative care by specialist Z51.5 Additional Codes Advanced Care Planning - 33990 Advanced Care Planning 30 Min: 30192 Advanced Care Planning 30 Min ([id number])
[2024-02-29] MEDS: SACCHAROMYCES BOULARDII 250 MG CAP PO SCH (16:12)
[2024-02-29] MEDS: HYDROmorphone INJ 0.5 MG/0.5 ML SYR IV PRN (16:24)
[2024-02-29] MEDS: LOPERAMIDE HCL 2 MG CAP PO PRN (19:59)
[2024-03-01] MEDS: TROLAMINE SALICYLATE 10% CRM 255 APPLN/85 GM TUBE EXT PRN (05:32)
--- NOTE | 2024-03-01 08:59 | Hospitalist Progress Note ---
Date of Service March 01, 2024 Assessment & Plan (1) Acute blood loss anemia: Plan: In the setting of being on anticoagulation due to mechanical valve Coumadin held even though there is a risk of thrombosis due to mechanical valves. PT has entered into comfort care Intramuscular hematoma in the left iliopsoas muscle. The patient also has a history of GI bleed in the past. The patient was discharged from [facility] to SNF at [facility] 02/24, hospice pending. She was discharged off of Coumadin. She got 1 unit of blood with improvement in her hemoglobin and blood pressure as well Her stool was positive for occult blood. GI was consulted. They did not recommended the intervention at this time. They advanced her diet. - This is the main reason for her admission. - Plan to keep Coumadin on hold. - Patient has accepted comfort care. Did stop labs. (2) Congestive heart failure: Plan: HFpEF Patient appears euvolemic to slightly hypervolemic but is breathing well at t his time. cautious with Torsemide dosing, pt feels too swollen will add some metolazone as at 100mg bid of torsemide She was discharged with hospice, continue treatment goal for comfort Pt with history of afib, leadless pacemaker, no rate contolling medication at this time (3) Hyponatremia: Plan: -Sodium of 125 at time of admission. Most likely related to hypervolemia and fluid overload D/c lab draws (4) Chronic lower back pain: Plan: Most likely due to the intramuscular iliopsoas hematoma. Start morphine for pain control, (5) H/O mechanical aortic valve replacement: Plan: Coumadin has been discontinued because of intramuscular hematoma in the left iliopsoas muscle Pt has decided on comfort care Plan Hypothyroidism, on Synthroid DNR/DNI -Patient left [facility] nursing AMA, went to son's house and was immediately brought to the hospital by EMS. -Currently no defined disposition - patient has now decided on comfort care,but at times acts contrary to that with her questioning Admission and Anticipated Discharge Date Admission Date: February 26, 2024 Subjective pt is laying semi recumbent across the bed, biggest concern is constipaiton and lower extremity edema, asks for bowel assistance and more diuretics Physical Exam Physical Exam: pleasant, sig jvd cardiac is regular with murmur very poor air movement no wheezes ext with 2+ b/l edema Results & Data Results & Data Vital Signs (Past 12 Hours) Vital Signs Temp Pulse Resp BP Pulse Ox O2 Del Method 03/01/24 07:59 97.7 F 70 16 106/67 100 Room Air PG Care Time/CCT Total # of Minutes Spent Total Time Spent with Patient: Total time spent is greater than 50% in coordination of care (as documented) at patient's floor/unit and/or counseling patient: Coding Level of Care Code 10793 SUB INP/OBS CARE 2/35MIN Diagnoses Acute blood loss anemia D62 Congestive heart failure I50.9 Hyponatremia E87.1 Chronic lower back pain M54.50; G89.29 H/O mechanical aortic valve replacement Z95.2
--- NOTE | 2024-03-01 11:00 | Communication Note ---
Date of Service: March 01, 2024 Palliative Medicine ACP Note 35min telephonic ACP meeting was held at request of pt with a call to her sister Leesa Gan/also JESSICA, to provide update and address any concerns. Leesa resides in [place]. Leesa shared the history of longtime, complex family dynamics and Dilma has had issues with ETOH abuse and nicotine abuse with h/o episodes where she was taken to counts include 234 beds at the [facility] by the police when found wandering/lost while driving and not able to mentate clearly. Per Leesa, Dilma called herself and [employer] and left SNF within an hour of arrival bc they are a non smoking entity. Leesa reports Dilma has been largely estranged from most family, only invited Leesa back in over the past 2 mos, likely right around when health was failing and the revisits to [facility] began. Leesa states the cardiology team at [facility] told her prognosis is months to a year off anticoagulation. She feels SNF placement would be pretty reasonable, ideally someplace that can take her with hospice (I believe she is [facility] pending but will defer to CM) and maybe would allow pt to smoke. Leesa also shared that the reported "boyfriend" is on/off, never consistent and he has not seen pt in months -he will not be a caregiver for her, per Leesa. Lastly, Leesa shared the son and pt are estranged, son has emotional issues/socially avoidant and also would never be a caregiver for pt/is not involved in her care and prior to her coming to his house from the SNF, had no contact with patient for years. We discussed the medical issues and plan of care, focusing on comfort. I feel her prognosis is likely weeks to months, versus months to a year. [place], [place], therefore the only option in this region is a penitentiary with addition of hospice, for which pt will need to have both medicare and medicaid, as medicare is what pays for hospice and medicaid is what would pay for penitentiary bed and board fees. Leesa is in agreement for comfort care and hospice if it can be added at the penitentiary. She is also aware the process to find placement may take time/be complicated by the lack of adequate insurance to cover SNF + hospice. She will await updates from CM prn. Leesa shared that pt has struggled her whole life to be loved. She alternately asks for connection and pushes people away. We spoke about how this need to receive love can intensify at the end of life, as we become more vulnerable and need more help. We spoke about how suffering can sometimes manifest as defensiveness, anger and a "difficult" personality. We know from research what's most important to people who are closer to include comfort; feeling unburdened and unburdening to those they love; existential peace; and a sense of wonderment and spirituality. If you have a friend who is struggling and dont know how to help, perhaps start by getting together. Be prepared to come close not standing on the edge, waiting to be asked, but willingly entering the messiness of pain. Leesa acknowledges that Dilma has underlying psych issues that have been long unaddressed but are no longer fixable at this junction. We agreed to emphasize a focused approach on her comfort/QOL, aiming to provide reassurance /reduce suffering through listening, providing help as needed and being willing to share Dilma's hopes even if they may be unattainable. Additional supportive care interventions thru spiritual care will be added as well. TS 45min, 35min of this was telephonic ACP Thank you for allowing us to participate in the ongoing care of this patient. Please page with any additional concerns. Zane Crews DNP Director, Palliative Medicine
[2024-03-01] MEDS: HYDROmorphone INJ 0.5 MG/0.5 ML SYR IV PRN (13:34)
[2024-03-01] MEDS ORDERED: SOD PHOSPHATE/SOD BIPHOSPHATE ENEMA 132 ML BTL PR PRN (16:10)
[2024-03-01] MEDS ORDERED: bisacodyL 10 MG SUPP PR PRN (16:10)
[2024-03-01] MEDS: metOLazone 2.5 MG TABLET PO ONE (20:16)
[2024-03-02] MEDS: metOLazone 2.5 MG TABLET PO SCH (10:33)
--- NOTE | 2024-03-02 14:04 | Palliative Care Progress Note ---
Date of Service March 02, 2024 Assessment & Plan (1) Generalized pain: Plan: As needed Dilaudid dose increased to 0.8 mg IV every 30 minutes as needed. She remains on comfort care. She has not used any doses of the as needed IV Ativan. (2) Anxiety: Plan: Ativan 0.25mg and 0.5mg IV PRN ordered (3) Weakness generalized: (4) Advanced care planning/counseling discussion: Plan: I met with patient [id number] at bedside for approximately 45 minutes today. I provided her the update that I called her sister as she requested. She tells me today she is planning to change her POA from her sister to someone else. She is contemplating her brother. She shares that her brother lives in the [facility] but has his own health struggles and was recently life flighted to [facility] for medical complications. She also shares that he has limited mobility and is morbidly obese. I asked her if she felt that he would be able to take on the responsibility of being a POA for her medical issues given that he is struggling with his own acute issues and has limited transportation and mobility. She replied that he probably would not be able to do this now that she is thinking about it. I asked her who in her adult life has been her greatest support. She response that she has a very close friend who resides in [place] and this person has always been by her side. I suggested that she reach out to this friend to discuss the option of transitioning her into the POA role for patient. I also suggested that she converse with her sister to really see if there is no capacity to restore their relationship as in my conversation this morning with sister, she did seem quite sincere in her concerning care for the patient and appear to have acted in an responsible manner. Patient continues to insist that she will leave the hospital and go to assisted living or to an apartment close to her boyfriend's home in [facility]. She states that her family does not like her boyfriend but that is because they have never given him a chance. I asked her if she was able to have visits from him while she was at [facility] for the last few months and she replied that he had been unable to visit her because "his father and his dog is dying." She feels that he is misunderstood. I asked her if she felt he would be able to be a caregiver for her and she replied, "I do not really know, but I want to be near him because it is important to me to support him. He is going through a lot." We focused our discussion at this point about what was happening in her life and how it is time to really consider the ways that perhaps her friends and family could be more supportive for her. She is having more health related struggles as her cardiac conditions near a terminal stage. We discussed a legacy review and reviewed the options for legacy projects. It has been hard for her to have conversations with her close friends and family. She struggles at times with the various perceived wrongs and historical disagreements. I suggested the consideration of perhaps writing a letter to all the people that matter with her and provided her with a framework based on the guidance from Dr. Fany Rush. We talked about the 4 things that matter most when someone is nearing the end of their life. I gave her some structure talking maps to consider and also provided her with writing implementations. She states that she hopes she will be able to work on these over the next coming days as it is a necessary break from trying to pursue both finding apartment/housing for herself, reclaiming her car, trying to reconnect with her boyfriend, and the concern she has with her family. She reiterates very emphatically to me she does not wish to have her son involved in any aspects of her care nor does she want him updated. When asked what her goals are at this stage, she continued to vacillate between curing her heart failure, wanting to be comfortable, desiring to go to an inpatient hospice, getting back to her apartment, getting even with her sister, reuniting with her boyfriend, and collecting her back pay. 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 (5) Leg pain, bilateral: (6) Pain, upper back: (7) Denial as mental defense mechanism: (8) Bilateral leg edema: (9) Palliative care by specialist: Plan As above Dilma continues to struggle with the implications of terminal heart disease and her own mortality. She has been unwilling to face some of these issues as she continues to perseverate on past/historical disagreements and perceived slights with different family members and friends. We spent a long time today discussing legacy projects to do when someone is facing a more final chapter of life. Documentation was provided to help her through a letter writing project as part of a legacy project utilizing the principles of the 4 things that matter most with Dr. Fany Rush. Dilma will need ongoing emotional support as she navigates this stage of her life. She is having extremely hard time accepting t he overall terminal nature of her situation and continues to feel that medical team's and hospital systems are not trying hard enough to give her the care she deserves. 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 Thank you for allowing us to participate in the ongoing care of this patient. Please page with any additional concerns. Zane Crews DNP Director, Palliative Medicine Admission and Anticipated Discharge Date Admission Date: February 26, 2024 Subjective Late entry note for visit of 03/01/2024 Patient seen at bedside, no family present. She is seated at the edge of the bed and appears uncomfortable. She tells me that her back pain remains uncontrolled and asked if I can increase her Dilaudid dose. She has not used any of the Ativan ordered for her anxiety but she feels that overall the Dilaudid was helping provide enough relief so that she could rest easily. She states that she continues to make efforts to find herself in assisted living facility. She states that she is also contemplating changing her POA document because she believes "my sister is only interested in the money." She is mildly short of breath with prolonged conversation or minimal exertion. Significant lower extremity edema persists. She remains on high-dose diuretics. She remains on comfort care. Review of Systems Review of Systems: All systems reviewed & are unremarkable except as noted in Subjective Physical Exam Physical Exam: Chronically ill-appearing female, seated at edge of bed Mild bitemporal wasting. PERRLA, EOMI's. Neck is supple and without stridor, no gross JVD noted Respiratory effort normal. Mild conversational dyspnea. Lungs are diminished but overall clear. +conversational dyspnea with prolonged discussion. S1-S2, + murmur, harsh No JVD Abdomen soft, mildly distended, bowel sounds present Bilateral lower extremities with severe erythematous edema +3 to +4 pitting up to the mid thigh. Vascular insufficiency changes to the lower extremities are noted. Awake alert and oriented x 3. + Tangential, + wishful thinking Skin is pale, warm and otherwise intact. Results & Data Vital Signs (Past 12 Hours) Vital Signs O2 Del Method 03/02/24 08:00 Room Air Laboratory Results 02/29/24 02/29/24 02/28/24 Range/Units 08:57 05:55 20:49 WBC 6.07 (4.8-10.8) K/ul RBC 2.41 L (4.20-5.40) M/uL Hgb 7.5 L 7.5 L (12.0-16.0) g/dl Hct 23.9 L 23.0 L (37.0-47.0) % MCV 99.2 (80.0-100.0) fL MCH 31.1 (25.0-34.0) pg MCHC 31.4 L (32.0-36.0) g/dL RDW Std Deviation 76.1 H (36.4-46.3) fL RDW Coeff of Dun[place] 21.2 H (11.5-14.5) % Plt Count 236 (130-400) K/uL MPV 9.3 L (9.4-12.4) fL Immature Gran % (Auto) % Neut % (Auto) % Lymph % (Auto) % [place] % (Auto) % Eos % (Auto) % Baso % (Auto) % Neut # (Auto) (1.40-6.50) K/uL Lymph # (Auto) (1.20-3.40) K/uL [place] # (Auto) (0.11-0.59) K/uL Eos # (Auto) (0.00-0.50) K/uL Baso # (Auto) (0.00-0.20) K/uL Immature Gran # (Auto) (0.01-0.20) K/uL Polychromasia Anisocytosis Macrocytosis PT 11.4 (9.0-12.0) Seconds INR 1.1 (0.9-1.1) APTT (21-31) Seconds PTT Ratio Sodium 124 L (136-145) mmol/L Potassium 6.4 H* 6.5 H* D (3.5-5.1) mmol/L Chloride 97 L (98-107) mmol/L Carbon Dioxide 21 (21-32) mmol/L Anion Gap 6 (3-11) BUN 60 H (6-23) mg/dl Creatinine 1.15 (0.6-1.2) mg/dl Est Cr Clr Drug Dosing 53.1 ml/min Est GFR ( Amer) 59.1 ml/min Est GFR (Non-Af Amer) 51.0 ml/min BUN/Creatinine Ratio 52.2 H (10-20) Glucose 107 H (70-99(Fasting)) mg/dl Osmolality (280-300) mOsm/kg Calcium 9.1 (8.6-10.3) mg/dl Phosphorus (2.5-4.9) mg/dl Magnesium (1.7-2.4) mg/dl Total Bilirubin (0.2-1.0) mg/dl Direct Bilirubin (0-0.2) mg/dl AST (13-39) U/L ALT (7-52) U/L Alkaline Phosphatase (34-104) U/L Troponin I High Sens (0-14) pg/ml B-Natriuretic Peptide (0-100) pg/ml Total Protein (6.0-8.3) gm/dl Albumin (3.4-5.0) gm/dl Globulin (2.5-4.0) gm/dl Albumin/Globulin Ratio (0.9-2) TSH (0.300-4.500) uIu/ml Urine Color Urine Appearance (Clear) Urine pH (4.5-7.5) Ur Specific [place] (1.000-1.030) Urine Protein (Negative) Urine Glucose (UA) (Negative) Urine Ketones (Negative) Urine Blood (Negative) Urine Nitrite (Negative) Urine Bilirubin (Negative) Urine Urobilinogen (Negative) Ur Leukocyte Esterase (Negative) Urine Osmolality (500-800) mOsm/kg Stool Occult Bld Scrn (Negative) Blood Type Antibody Screen Antibody Identification Antibody ID Referred Antibody ID Comment Crossmatch 02/28/24 02/28/24 02/27/24 Range/Units 12:57 09:06 21:24 WBC 5.96 (4.8-10.8) K/ul RBC 2.39 L (4.20-5.40) M/uL Hgb 7.7 L 7.4 L 7.3 L (12.0-16.0) g/dl Hct 23.7 L 23.7 L 22.7 L (37.0-47.0) % MCV 99.2 (80.0-100.0) fL MCH 31.0 (25.0-34.0) pg MCHC 31.2 L (32.0-36.0) g/dL RDW Std Deviation 77.4 H (36.4-46.3) fL RDW Coeff of Dunia 21.7 H (11.5-14.5) % Plt Count 232 (130-400) K/uL MPV 9.4 (9.4-12.4) fL Immature Gran % (Auto) % Neut % (Auto) % Lymph % (Auto) % [place] % (Auto) % Eos % (Auto) % Baso % (Auto) % Neut # (Auto) (1.40-6.50) K/uL Lymph # (Auto) (1.20-3.40) K/uL [place] # (Auto) (0.11-0.59) K/uL Eos # (Auto) (0.00-0.50) K/uL Baso # (Auto) (0.00-0.20) K/uL Immature Gran # (Auto) (0.01-0.20) K/uL Polychromasia Anisocytosis Macrocytosis PT 11.4 (9.0-12.0) Seconds INR 1.1 (0.9-1.1) APTT (21-31) Seconds PTT Ratio Sodium 125 L (136-145) mmol/L Potassium 4.7 (3.5-5.1) mmol/L Chloride 97 L (98-107) mmol/L Carbon Dioxide 21 (21-32) mmol/L Anion Gap 7 (3-11) BUN 57 H (6-23) mg/dl Creatinine 1.12 (0.6-1.2) mg/dl Est Cr Clr Drug Dosing 54.4 ml/min Est GFR ( Amer) 61.0 ml/min Est GFR (Non-Af Amer) 52.6 ml/min BUN/Creatinine Ratio 50.9 H (10-20) Glucose 147 H (70-99(Fasting)) mg/dl Osmolality (280-300) mOsm/kg Calcium 9.1 (8.6-10.3) mg/dl Phosphorus (2.5-4.9) mg/dl Magnesium (1.7-2.4) mg/dl Total Bilirubin (0.2-1.0) mg/dl Direct Bilirubin (0-0.2) mg/dl AST (13-39) U/L ALT (7-52) U/L Alkaline Phosphatase (34-104) U/L Troponin I High Sens (0-14) pg/ml B-Natriuretic Peptide (0-100) pg/ml Total Protein (6.0-8.3) gm/dl Albumin (3.4-5.0) gm/dl Globulin (2.5-4.0) gm/dl Albumin/Globulin Ratio (0.9-2) TSH (0.300-4.500) uIu/ml Urine Color Urine Appearance (Clear) Urine pH (4.5-7.5) Ur Specific [place] (1.000-1.030) Urine Protein (Negative) Urine Glucose (UA) (Negative) Urine Ketones (Negative) Urine Blood (Negative) Urine Nitrite (Negative) Urine Bilirubin (Negative) Urine Urobilinogen (Negative) Ur Leukocyte Esterase (Negative) Urine Osmolality (500-800) mOsm/kg Stool Occult Bld Scrn (Negative) Blood Type Antibody Screen Antibody Identification Antibody ID Referred Antibody ID Comment Crossmatch 02/27/24 02/27/24 02/26/24 Range/Units 12:38 06:35 Unknown WBC (4.8-10.8) K/ul RBC (4.20-5.40) M/uL Hgb 7.4 L 7.6 L (12.0-16.0) g/dl Hct 22.7 L 23.1 L (37.0-47.0) % MCV (80.0-100.0) fL MCH (25.0-34.0) pg MCHC (32.0-36.0) g/dL RDW Std Deviation (36.4-46.3) fL RDW Coeff of Dunia (11.5-14.5) % Plt Count (130-400) K/uL MPV (9.4-12.4) fL Immature Gran % (Auto) % Neut % (Auto) % Lymph % (Auto) % [place] % (Auto) % Eos % (Auto) % Baso % (Auto) % Neut # (Auto) (1.40-6.50) K/uL Lymph # (Auto) (1.20-3.40) K/uL [place] # (Auto) (0.11-0.59) K/uL Eos # (Auto) (0.00-0.50) K/uL Baso # (Auto) (0.00-0.20) K/uL Immature Gran # (Auto) (0.01-0.20) K/uL Polychromasia Anisocytosis Macrocytosis PT 11.2 (9.0-12.0) Seconds INR 1.0 (0.9-1.1) APTT (21-31) Seconds PTT Ratio Sodium 124 L (136-145) mmol/L Potassium 4.7 D (3.5-5.1) mmol/L Chloride 93 L (98-107) mmol/L Carbon Dioxide 21 (21-32) mmol/L Anion Gap 10 (3-11) BUN 65 H (6-23) mg/dl Creatinine 1.09 (0.6-1.2) mg/dl Est Cr Clr Drug Dosing 55.5 ml/min Est GFR ( Amer) 63.0 ml/min Est GFR (Non-Af Amer) 54.4 ml/min BUN/Creatinine Ratio 59.6 H (10-20) Glucose 109 H (70-99(Fasting)) mg/dl Osmolality (280-300) mOsm/kg Calcium 9.4 (8.6-10.3) mg/dl Phosphorus (2.5-4.9) mg/dl Magnesium 2.3 (1.7-2.4) mg/dl Total Bilirubin (0.2-1.0) mg/dl Direct Bilirubin (0-0.2) mg/dl AST (13-39) U/L ALT (7-52) U/L Alkaline Phosphatase (34-104) U/L Troponin I High Sens (0-14) pg/ml B-Natriuretic Peptide (0-100) pg/ml Total Protein (6.0-8.3) gm/dl Albumin (3.4-5.0) gm/dl Globulin (2.5-4.0) gm/dl Albumin/Globulin Ratio (0.9-2) TSH (0.300-4.500) uIu/ml Urine Color Yellow Urine Appearance Clear (Clear) Urine pH 5.5 (4.5-7.5) Ur Specific [place] 1.013 (1.000-1.030) Urine Protein Negative (Negative) Urine Glucose (UA) Negative (Negative) Urine Ketones Negative (Negative) Urine Blood Negative (Negative) Urine Nitrite Negative (Negative) Urine Bilirubin Negative (Negative) Urine Urobilinogen Negative (Negative) Ur Leukocyte Esterase Negative (Negative) Urine Osmolality 309 L (500-800) mOsm/kg Stool Occult Bld Scrn Positive A (Negative) Blood Type Antibody Screen Antibody Identification Antibody ID Referred Antibody ID Comment Crossmatch 02/26/24 02/26/24 02/26/24 Range/Units 21:14 13:17 11:37 WBC (4.8-10.8) K/ul RBC (4.20-5.40) M/uL Hgb 6.6 L* 6.4 L* (12.0-16.0) g/dl Hct 20.5 L* 20.1 L* (37.0-47.0) % MCV (80.0-100.0) fL MCH (25.0-34.0) pg MCHC (32.0-36.0) g/dL RDW Std Deviation (36.4-46.3) fL RDW Coeff of Dunia (11.5-14.5) % Plt Count (130-400) K/uL MPV (9.4-12.4) fL Immature Gran % (Auto) % Neut % (Auto) % Lymph % (Auto) % [place] % (Auto) % Eos % (Auto) % Baso % (Auto) % Neut # (Auto) (1.40-6.50) K/uL Lymph # (Auto) (1.20-3.40) K/uL [place] # (Auto) (0.11-0.59) K/uL Eos # (Auto) (0.00-0.50) K/uL Baso # (Auto) (0.00-0.20) K/uL Immature Gran # (Auto) (0.01-0.20) K/uL Polychromasia Anisocytosis Macrocytosis PT (9.0-12.0) Seconds INR (0.9-1.1) APTT (21-31) Seconds PTT Ratio Sodium (136-145) mmol/L Potassium (3.5-5.1) mmol/L Chloride (98-107) mmol/L Carbon Dioxide (21-32) mmol/L Anion Gap (3-11) BUN (6-23) mg/dl Creatinine (0.6-1.2) mg/dl Est Cr Clr Drug Dosing ml/min Est GFR ( Amer) ml/min Est GFR (Non-Af Amer) ml/min BUN/Creatinine Ratio (10-20) Glucose (70-99(Fasting)) mg/dl Osmolality (280-300) mOsm/kg Calcium (8.6-10.3) mg/dl Phosphorus (2.5-4.9) mg/dl Magnesium (1.7-2.4) mg/dl Total Bilirubin (0.2-1.0) mg/dl Direct Bilirubin (0-0.2) mg/dl AST (13-39) U/L ALT (7-52) U/L Alkaline Phosphatase (34-104) U/L Troponin I High Sens (0-14) pg/ml B-Natriuretic Peptide (0-100) pg/ml Total Protein (6.0-8.3) gm/dl Albumin (3.4-5.0) gm/dl Globulin (2.5-4.0) gm/dl Albumin/Globulin Ratio (0.9-2) TSH (0.300-4.500) uIu/ml Urine Color Urine Appearance (Clear) Urine pH (4.5-7.5) Ur Specific [place] (1.000-1.030) Urine Protein (Negative) Urine Glucose (UA) (Negative) Urine Ketones (Negative) Urine Blood (Negative) Urine Nitrite (Negative) Urine Bilirubin (Negative) Urine Urobilinogen (Negative) Ur Leukocyte Esterase (Negative) Urine Osmolality (500-800) mOsm/kg Stool Occult Bld Scrn (Negative) Blood Type Antibody Screen Antibody Identification Antibody ID Referred Antibody ID Comment Crossmatch 02/26/24 02/26/24 02/26/24 Range/Units 09:13 09:13 09:13 WBC (4.8-10.8) K/ul RBC (4.20-5.40) M/uL Hgb (12.0-16.0) g/dl Hct (37.0-47.0) % MCV (80.0-100.0) fL MCH (25.0-34.0) pg MCHC (32.0-36.0) g/dL RDW Std Deviation (36.4-46.3) fL RDW Coeff of Dunia (11.5-14.5) % Plt Count (130-400) K/uL MPV (9.4-12.4) fL Immature Gran % (Auto) % Neut % (Auto) % Lymph % (Auto) % [place] % (Auto) % Eos % (Auto) % Baso % (Auto) % Neut # (Auto) (1.40-6.50) K/uL Lymph # (Auto) (1.20-3.40) K/uL [place] # (Auto) (0.11-0.59) K/uL Eos # (Auto) (0.00-0.50) K/uL Baso # (Auto) (0.00-0.20) K/uL Immature Gran # (Auto) (0.01-0.20) K/uL Polychromasia Anisocytosis Macrocytosis PT (9.0-12.0) Seconds INR (0.9-1.1) APTT (21-31) Seconds PTT Ratio Sodium (136-145) mmol/L Potassium (3.5-5.1) mmol/L Chloride (98-107) mmol/L Carbon Dioxide (21-32) mmol/L Anion Gap (3-11) BUN (6-23) mg/dl Creatinine (0.6-1.2) mg/dl Est Cr Clr Drug Dosing ml/min Est GFR ( Amer) ml/min Est GFR (Non-Af Amer) ml/min BUN/Creatinine Ratio (10-20) Glucose (70-99(Fasting)) mg/dl Osmolality (280-300) mOsm/kg Calcium (8.6-10.3) mg/dl Phosphorus (2.5-4.9) mg/dl Magnesium (1.7-2.4) mg/dl Total Bilirubin (0.2-1.0) mg/dl Direct Bilirubin (0-0.2) mg/dl AST (13-39) U/L ALT (7-52) U/L Alkaline Phosphatase (34-104) U/L Troponin I High Sens (0-14) pg/ml B-Natriuretic Peptide (0-100) pg/ml Total Protein (6.0-8.3) gm/dl Albumin (3.4-5.0) gm/dl Globulin (2.5-4.0) gm/dl Albumin/Globulin Ratio (0.9-2) TSH (0.300-4.500) uIu/ml Urine Color Urine Appearance (Clear) Urine pH (4.5-7.5) Ur Specific [place] (1.000-1.030) Urine Protein (Negative) Urine Glucose (UA) (Negative) Urine Ketones (Negative) Urine Blood (Negative) Urine Nitrite (Negative) Urine Bilirubin (Negative) Urine Urobilinogen (Negative) Ur Leukocyte Esterase (Negative) Urine Osmolality (500-800) mOsm/kg Stool Occult Bld Scrn (Negative) Blood Type Antibody Screen Antibody Identification Anti-S Anti-K Anti-Fya Antibody ID Referred Antibody ID Comment Cancelled Crossmatch See Detail 02/26/24 02/26/24 02/26/24 Range/Units 09:13 09:13 08:10 WBC 4.87 (4.8-10.8) K/ul RBC 2.02 L (4.20-5.40) M/uL Hgb 6.4 L* (12.0-16.0) g/dl Hct 20.1 L* (37.0-47.0) % MCV 99.5 (80.0-100.0) fL MCH 31.7 (25.0-34.0) pg MCHC 31.8 L (32.0-36.0) g/dL RDW Std Deviation 73.8 H (36.4-46.3) fL RDW Coeff of [place] 20.7 H (11.5-14.5) % Plt Count 222 (130-400) K/uL MPV 9.3 L (9.4-12.4) fL Immature Gran % (Auto) 1.2 % Neut % (Auto) 76.0 % Lymph % (Auto) 3.7 % [place] % (Auto) 13.6 % Eos % (Auto) 4.9 % Baso % (Auto) 0.6 % Neut # (Auto) 3.70 (1.40-6.50) K/uL Lymph # (Auto) 0.18 L (1.20-3.40) K/uL [place] # (Auto) 0.66 H (0.11-0.59) K/uL Eos # (Auto) 0.24 (0.00-0.50) K/uL Baso # (Auto) 0.03 (0.00-0.20) K/uL Immature Gran # (Auto) 0.06 (0.01-0.20) K/uL Polychromasia 1+ Anisocytosis Macrocytosis Present PT 11.4 (9.0-12.0) Seconds INR 1.1 (0.9-1.1) APTT (21-31) Seconds PTT Ratio Sodium 125 L (136-145) mmol/L Potassium 3.9 (3.5-5.1) mmol/L Chloride 93 L (98-107) mmol/L Carbon Dioxide 24 (21-32) mmol/L Anion Gap 8 (3-11) BUN 68 H (6-23) mg/dl Creatinine 1.08 (0.6-1.2) mg/dl Est Cr Clr Drug Dosing 48.6 ml/min Est GFR ( Amer) 63.7 ml/min Est GFR (Non-Af Amer) 55.0 ml/min BUN/Creatinine Ratio 63.0 H (10-20) Glucose 108 H (70-99(Fasting)) mg/dl Osmolality (280-300) mOsm/kg Calcium 8.8 (8.6-10.3) mg/dl Phosphorus (2.5-4.9) mg/dl Magnesium (1.7-2.4) mg/dl Total Bilirubin 1.0 (0.2-1.0) mg/dl Direct Bilirubin (0-0.2) mg/dl AST 29 (13-39) U/L ALT 16 (7-52) U/L Alkaline Phosphatase 155 H (34-104) U/L Troponin I High Sens (0-14) pg/ml B-Natriuretic Peptide (0-100) pg/ml Total Protein 6.8 (6.0-8.3) gm/dl Albumin 3.5 (3.4-5.0) gm/dl Globulin 3.3 (2.5-4.0) gm/dl Albumin/Globulin Ratio 1.1 (0.9-2) TSH 3.600 (0.300-4.500) uIu/ml Urine Color Urine Appearance (Clear) Urine pH (4.5-7.5) Ur Specific [place] (1.000-1.030) Urine Protein (Negative) Urine Glucose (UA) (Negative) Urine Ketones (Negative) Urine Blood (Negative) Urine Nitrite (Negative) Urine Bilirubin (Negative) Urine Urobilinogen (Negative) Ur Leukocyte Esterase (Negative) Urine Osmolality (500-800) mOsm/kg Stool Occult Bld Scrn (Negative) Blood Type O Positive Antibody Screen POSITIVE A Antibody Identification Anti-E Anti-CW Antibody ID Referred Antibody ID Comment Crossmatch 02/26/24 02/26/24 02/26/24 Range/Units 02:02 00:16 00:10 WBC 5.34 (4.8-10.8) K/ul RBC 2.20 L (4.20-5.40) M/uL Hgb 7.0 L (12.0-16.0) g/dl Hct 21.7 L (37.0-47.0) % MCV 98.6 (80.0-100.0) fL MCH 31.8 (25.0-34.0) pg MCHC 32.3 (32.0-36.0) g/dL RDW Std Deviation 75.0 H (36.4-46.3) fL RDW Coeff of [place] 21.2 H (11.5-14.5) % Plt Count 234 (130-400) K/uL MPV 9.2 L (9.4-12.4) fL Immature Gran % (Auto) 0.9 % Neut % (Auto) 80.0 % Lymph % (Auto) 3.6 % [place] % (Auto) 10.9 % Eos % (Auto) 3.7 % Baso % (Auto) 0.9 % Neut # (Auto) 4.27 (1.40-6.50) K/uL Lymph # (Auto) 0.19 L (1.20-3.40) K/uL [place] # (Auto) 0.58 (0.11-0.59) K/uL Eos # (Auto) 0.20 (0.00-0.50) K/uL Baso # (Auto) 0.05 (0.00-0.20) K/uL Immature Gran # (Auto) 0.05 (0.01-0.20) K/uL Polychromasia 1+ Anisocytosis Present Macrocytosis PT 11.2 (9.0-12.0) Seconds INR 1.0 (0.9-1.1) APTT 31 (21-31) Seconds PTT Ratio 1.2 Sodium 125 L (136-145) mmol/L Potassium 3.9 (3.5-5.1) mmol/L Chloride 93 L (98-107) mmol/L Carbon Dioxide 23 (21-32) mmol/L Anion Gap 9 (3-11) BUN 70 H (6-23) mg/dl Creatinine 1.25 H (0.6-1.2) mg/dl Est Cr Clr Drug Dosing 42.0 ml/min Est GFR ( Amer) 53.4 ml/min Est GFR (Non-Af Amer) 46.1 ml/min BUN/Creatinine Ratio 56.0 H (10-20) Glucose 124 H (70-99(Fasting)) mg/dl Osmolality 289 (280-300) mOsm/kg Calcium 9.4 (8.6-10.3) mg/dl Phosphorus 4.4 (2.5-4.9) mg/dl Magnesium 2.2 (1.7-2.4) mg/dl Total Bilirubin 1.1 H (0.2-1.0) mg/dl Direct Bilirubin 0.3 H (0-0.2) mg/dl AST 32 (13-39) U/L ALT 19 (7-52) U/L Alkaline Phosphatase 181 H (34-104) U/L Troponin I High Sens 32.6 H 32.3 H (0-14) pg/ml B-Natriuretic Peptide 586 H (0-100) pg/ml Total Protein 7.4 (6.0-8.3) gm/dl Albumin 3.8 (3.4-5.0) gm/dl Globulin (2.5-4.0) gm/dl Albumin/Globulin Ratio (0.9-2) TSH (0.300-4.500) uIu/ml Urine Color Urine Appearance (Clear) Urine pH (4.5-7.5) Ur Specific [place] (1.000-1.030) Urine Protein (Negative) Urine Glucose (UA) (Negative) Urine Ketones (Negative) Urine Blood (Negative) Urine Nitrite (Negative) Urine Bilirubin (Negative) Urine Urobilinogen (Negative) Ur Leukocyte Esterase (Negative) Urine Osmolality (500-800) mOsm/kg Stool Occult Bld Scrn (Negative) Blood Type Antibody Screen Antibody Identification Antibody ID Referred Antibody ID Comment Crossmatch Diagnostic Findings Abdomen/Pelvis CT 02/26/24 13:01 CT abd pelvis wo con CLINICAL HISTORY: abd distension TECHNIQUE: Helical axial images of the abdomen and pelvis were obtained. Automated dose lowering techniques and/or adjustment according to patient size were utilized for this exam. This exam was performed without intravenous contrast. CT DOSE: 810.54 mGy.cm COMPARISON: Comparison is made to CT abdomen pelvis 01/22/2023 FINDINGS: Lower chest: Bibasilar atelectasis versus scarring is seen. Liver: Mild hepatomegaly is seen. Gallbladder and biliary tree: Cholelithiasis is seen without evidence of cholecystitis. No intra- or extrahepatic biliary ductal dilation. Pancreas: Unremarkable, no focal lesions. Spleen: Unremarkable. Adrenals: Unremarkable. Kidneys and ureters: Unremarkable. Bladder: Unremarkable. Reproductive organs: Unremarkable. Bowel: Diverticulosis is seen without evidence of diverticulitis. Lymph nodes Retroperitoneal: Subcentimeter lymph nodes are noted. Pelvic: Unremarkable. Mesenteric: Unremarkable. Peritoneum: Mild ascites is seen. Vessels: Unremarkable. Abdominal wall: A fat-containing umbilical hernia is seen. Prominent intramuscular hematoma is seen in the left iliopsoas measuring up to 8.3 x 5.5 cm. Bones: Mild degenerative changes are seen. IMPRESSION: Intramuscular hematoma in the left iliopsoas. Stable mild ascites, similar to prior exam. ACT 112: Negative or not required by law. Electronically signed by: Anthony Poe M.D. 02/26/2024 3:22 PM Venous Doppler Study 02/27/24 18:37 Exam(s): US VENOUS BILATERAL LOWER EXTREMITIES EXAM: US Duplex Bilateral Lower Extremities Veins CLINICAL HISTORY: Pain in legs, off anticoagulants. TECHNIQUE: Real-time duplex ultrasound scan of the bilateral lower extremity veins integrating B-mode two-dimensional vascular structure, Doppler spectral analysis, color flow Doppler imaging and compression. COMPARISON: No relevant prior studies available. FINDINGS: Right deep veins: Unremarkable. No DVT in the right common femoral, femoral, proximal deep femoral or popliteal veins. The veins demonstrate normal color flow, are normally compressible, with normal phasic flow and/or augmentation response. The interrogated calf veins are patent. Right superficial veins: Unremarkable. No thrombus in the saphenofemoral junction. Left deep veins: Unremarkable. No DVT in the left common femoral, femoral, proximal deep femoral or popliteal veins. The veins demonstrate normal color flow, are normally compressible, with normal phasic flow and/or augmentation response. The interrogated calf veins are patent. Left superficial veins: Unremarkable. No thrombus in the saphenofemoral junction. Soft tissues: Subcutaneous edema noted from the mid thighs distally involving both lower extremities. No loculated fluid collections. No popliteal cyst. IMPRESSION: No evidence for deep vein thrombosis involving the bilateral lower extremities. Bilateral subcutaneous edema noted. Electronically signed by: Aneudy Newton MD 02/28/24 00:41 AM PG Care Time/CCT Total # of Minutes Spent Total Time Spent with Patient: Total time spent is greater than 50% in coordination of care (as documented) at patient's floor/unit and/or counseling patient: I spent 105 minutes overall addressing this case: 15 min in medical data review/discussion with referring provider(s) and/or preparation for the visit 15 min in direct interaction with the patient/exam 45 min in Advance Care Planning/Goals of Care discussions as detailed above in note (must be >16min) 15 min in subsequent review and synthesis of assessment and plan 15 min communicating with other providers regarding the patient's case: Primary team, nursing, care management [place] [address] SUB INP/OBS CARE 3/50MIN (25 - SIGNIFICANT, SEPARATELY IDENTIFIABLE ) Patient Type Established Medical Decision Making High Complexity Diagnoses Generalized pain R52 Anxiety F41.9 Weakness generalized R53.1 Advanced care planning/counseling discussion Z71.89 Leg pain, bilateral M79.604; M79.605 Pain, upper back M54.9 Denial as mental defense mechanism R45.89 Bilateral leg edema R60.0 Palliative care by specialist Z51.5
--- NOTE | 2024-03-02 15:23 | Hospitalist Progress Note ---
Date of Service March 02, 2024 Assessment & Plan (1) Acute blood loss anemia: Plan: In the setting of being on anticoagulation due to mechanical valve Coumadin held even though there is a risk of thrombosis due to mechanical valves. PT has entered into comfort care but still would like her hemoglobin checked today-hemoglobin improved from previous at 7.7 Intramuscular hematoma in the left iliopsoas muscle. The patient also has a history of GI bleed in the past. The patient was discharged from [facility] to SNF at [facility] 02/24, hospice pending. She was discharged off of Coumadin. She got 1 unit of blood with improvement in her hemoglobin and blood pressure as well Her stool was positive for occult blood. GI was consulted. They did not recommended the intervention at this time. They advanced her diet. - This is the main reason for her admission. - Plan to keep Coumadin on hold. (2) Congestive heart failure: Plan: Acute on chronic HFpEF Patient appears massively hypervolemic despite being on home torsemide 100 mg twice daily and metolazone has been added She is now on comfort measures only Pt with history of afib, leadless pacemaker, no rate controlling medication at this time (3) Hyponatremia: Plan: -Sodium of 125 at time of admission. Most likely related to hypervolemia and fluid overload Patient requested her sodium be rechecked and remained stable at 125 Also with hyperkalemia which is improved since previous on labs today down to 5.3, continue torsemide and metolazone No further lab draws on comfort measures (4) Chronic lower back pain: Plan: Most likely due to the intramuscular iliopsoas hematoma. Continue Dilaudid for pain control Also with neck and upper back muscle spasm and torticollis-add Robaxin 500 Mg p.o. 3 times daily (5) H/O mechanical aortic valve replacement: Plan: Coumadin has been discontinued because of intramuscular hematoma in the left iliopsoas muscle Pt has decided on comfort care Plan Hypothyroidism, on Synthroid DNR/DNI -Patient left [facility] nursing AMA, went to son's house and was immediately brought to the hospital by EMS. -Currently no defined disposition but now she is looking into independent apartments but I am not sure if she will be able to care for herself. creative resource manager is in discussions with patient about finding SNF in the meantime - patient has now decided on comfort care,but at times acts contrary to that Admission and Anticipated Discharge Date Admission Date: February 26, 2024 Subjective Patient reports she is not able to lift up her head and motion and is hunched over and has been like this for couple of months since her prolonged hospitalization. She is a lot of muscle tightness through the neck and upper back. She requests blood work to be done to check her sodium levels and hemoglobin levels to make sure that she is not still bleeding. She understands that she is on comfort measures. But she is also talking about trying to find an apartment to living independently. I discussed her care with palliative medicine. Physical Exam Constitutional: WD/WN, vitals as above Neck: Positive tenderness to palpation in the trapezius muscle and cervical paraspinous muscles bilaterally with spasm palpated No point tenderness over spinous processes Respiratory: normal respiratory effort, lungs clear to auscultation Cardiovascular: Rate/Rhythm: regular rate and regular rhythm Heart Sounds: + murmur Extremities: + edema (3+ pitting edema to the abdomen and bilateral lower extremities) Psychiatric: A+Ox3, euthymic affect Results & Data Results & Data Vital Signs (Past 12 Hours) Vital Signs O2 Del Method 03/02/24 08:00 Room Air Laboratory Results CBC and BMP reviewed PG Care Time/CCT Total # of Minutes Spent Total Time Spent with Patient: Total time spent is greater than 50% in coordination of care (as documented) at patient's floor/unit and/or counseling patient: Coding Level of Care Code 51607 SUB INP/OBS CARE 2/35MIN Diagnoses Acute blood loss anemia D62 Congestive heart failure I50.9 Hyponatremia E87.1 Chronic lower back pain M54.50; G89.29 H/O mechanical aortic valve replacement Z95.2
[2024-03-02 16:00] LABS: Basophils # (auto) 0.04 K/uL (0.00-0.20); Basophils % (auto) 0.7 %; Eosinophils # (auto) 0.17 K/uL (0.00-0.50); Eosinophils % (auto) 3.1 %; Hemoglobin 7.7 g/dl (12.0-16.0); Immature Granulocytes # (auto) 0.06 K/uL (0.01-0.20); Immature Granulocytes % (auto) 1.1 %; Lymphocytes # (auto) 0.18 K/uL (1.20-3.40); Lymphocytes % (auto) 3.3 %; Mean Corpuscular Hemoglobin 31.4 pg (25.0-34.0); Mean Corpuscular Hgb Conc 30.8 g/dL (32.0-36.0); Mean Platelet Volume 8.6 fL (9.4-12.4); Monocytes # (auto) 0.49 K/uL (0.11-0.59); Monocytes % (auto) 8.9 %; Neutrophils # (auto) 4.57 K/uL (1.40-6.50); Neutrophils % (auto) 82.9 %; Platelet Count 242 K/uL (130-400); RDW Coefficient of Variation 20.8 % (11.5-14.5); RDW Standard Deviation 75.7 fL (36.4-46.3); Red Blood Count 2.45 M/uL (4.20-5.40); White Blood Count 5.51 K/ul (4.8-10.8)
[2024-03-02 16:16] LABS: Calcium 9.4 mg/dl (8.6-10.3); Creatinine Clr Calc Pharmacy 40.2 ml/min; Est GFR (African American) 42.5 ml/min; Est GFR (Non-African American) 36.7 ml/min; Potassium 5.3 mmol/L (3.5-5.1)
[2024-03-02 16:17] LABS: Anisocytosis Present; Polychromasia 1+
[2024-03-02] MEDS: METHOCARBAMOL 500 MG TABLET PO SCH (16:24)
--- NOTE | 2024-03-03 14:48 | Hospitalist Progress Note ---
Date of Service March 03, 2024 Assessment & Plan (1) Acute blood loss anemia: Plan: In the setting of being on anticoagulation due to mechanical valve Intramuscular hematoma in the left iliopsoas muscle likely accounts for the recent drop in hemoglobin Coumadin held even though there is a risk of thrombosis due to mechanical valves. PT has entered into comfort care and no further labs to be drawn- hemoglobin improved from previous at 7.7 on 03/02 The patient also has a history of GI bleed in the past and multiple occasions of requiring blood transfusions The patient was discharged from [facility] to SNF at [facility] 02/24, hospice pending. She was discharged off of Coumadin. She got 1 unit of blood with improvement in her hemoglobin and blood pressure as well Her stool was positive for occult blood. GI was consulted. They did not recommended the intervention at this time. They advanced her diet. - This is the main reason for her admission - Plan to keep Coumadin on hold (2) Congestive heart failure: Plan: Acute on chronic HFpEF Patient appears massively hypervolemic despite being on home torsemide 100 mg twice daily and metolazone has been added She was on comfort measures only, but that order has been removed although there is no escalation in care and to focus on comfort but she is hopeful for some rehab to return to independent living Pt with history of afib, leadless pacemaker, no rate controlling medication at this time Will increase metolazone to 5 mg daily and change timing to be 30 minutes prior to torsemide Mild increase in creatinine to 1.5 on last lab check but will avoid further lab draws and base dosing purely on symptoms and edema (3) Hyponatremia: Plan: -Sodium of 125 at time of admission. Most likely related to hypervolemia and fluid overload Patient requested her sodium be rechecked and remains stable at 125 Also with hyperkalemia which is improved since previous on labs down to 5.3, continue torsemide and metolazone No further lab draws with focus on comfort (4) Chronic lower back pain: Plan: Most likely due to the intramuscular iliopsoas hematoma. Continue IV Dilaudid for breakthrough pain control, add fentanyl patch 12 mcg every 72 hours Also with neck and upper back muscle spasm and torticollis-added Robaxin 500 Mg p.o. 3 times daily (5) H/O mechanical aortic valve replacement: Plan: Coumadin has been discontinued because of intramuscular hematoma in the left iliopsoas muscle and numerous GI bleeds Pt has decided on comfort care/no escalation of care Plan Hypothyroidism, continues on Synthroid DNR/DNI -Patient left [facility] AMA, went to son's house and was immediately brought to the hospital by EMS. -Currently no defined disposition but now she is looking into independent apartments but I am not sure if she will be able to care for herself. manager tax is in discussions with patient about finding SNF in the meantime Will reorder PT/OT consults as she is now interested in short-term rehab stay prior to getting back to independent living she still wants to focus on quality of life as she knows her prognosis overall is poor Admission and Anticipated Discharge Date Admission Date: February 26, 2024 Subjective Patient reports she is urinating more today. She is looking into independent living apartments but is now willing to pursue short-term correction facility rehab stay in the meantime. She is still having pain through the upper back and neck. I discussed her care with palliative medicine at the bedside I also discussed her care extensively with her Sister Leesa on the phone Physical Exam Constitutional: WD/WN, vitals as above Cardiovascular: Extremities: + edema (3+ pitting edema to the abdomen and bilateral lower extremities) Psychiatric: A+Ox3, euthymic affect Results & Data Results & Data Vital Signs (Past 12 Hours) Vital Signs O2 Del Method 03/03/24 09:39 Room Air PG Care Time/CCT Total # of Minutes Spent Total Time Spent with Patient: Total time spent is greater than 50% in coordination of care (as documented) at patient's floor/unit and/or counseling patient: Coding Level of Care Code 95302 SUB INP/OBS CARE 1/25MIN Diagnoses Acute blood loss anemia D62 Congestive heart failure I50.9 Hyponatremia E87.1 Chronic lower back pain M54.50; G89.29 H/O mechanical aortic valve replacement Z95.2
[2024-03-03] MEDS: HYDROmorphone INJ 0.5 MG/0.5 ML SYR IV PRN (17:56)
--- NOTE | 2024-03-03 19:30 | Palliative Care Progress Note ---
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 mmol/L Potassium (3.5-5.1) mmol/L Chloride (98-107) mmol/L Carbon Dioxide (21-32) mmol/L Anion Gap (3-11) BUN (6-23) mg/dl Creatinine (0.6-1.2) mg/dl Est Cr Clr Drug Dosing ml/min Est GFR ( Amer) ml/min Est GFR (Non-Af Amer) ml/min BUN/Creatinine Ratio (10-20) Glucose (70-99(Fasting)) mg/dl Osmolality 289 (280-300) mOsm/kg Calcium (8.6-10.3) mg/dl Phosphorus (2.5-4.9) mg/dl Magnesium (1.7-2.4) mg/dl Total Bilirubin (0.2-1.0) mg/dl Direct Bilirubin (0-0.2) mg/dl AST (13-39) U/L ALT (7-52) U/L Alkaline Phosphatase (34-104) U/L Troponin I High Sens (0-14) pg/ml B-Natriuretic Peptide (0-100) pg/ml Total Protein (6.0-8.3) gm/dl Albumin (3.4-5.0) gm/dl Globulin (2.5-4.0) gm/dl Albumin/Globulin Ratio (0.9-2) TSH (0.300-4.500) uIu/ml Urine Color Urine Appearance (Clear) Urine pH (4.5-7.5) Ur Specific [place] (1.000-1.030) Urine Protein (Negative) Urine Glucose (UA) (Negative) Urine Ketones (Negative) Urine Blood (Negative) Urine Nitrite (Negative) Urine Bilirubin (Negative) Urine Urobilinogen (Negative) Ur Leukocyte Esterase (Negative) Urine Osmolality (500-800) mOsm/kg Stool Occult Bld Scrn (Negative) Blood Type Antibody Screen Antibody Identification Antibody ID Referred Antibody ID Comment Crossmatch PG Care Time/CCT Total # of Minutes Spent Total Time Spent with Patient: Total time spent is greater than 50% in coordination of care (as documented) at patient's floor/unit and/or counseling patient: I spent 90 minutes overall addressing this case: 10 min in medical data review/discussion with referring provider(s) and/or preparation for the visit 15 min in direct interaction with the patient/exam 45 min in Advance Care Planning/Goals of Care discussions as detailed above in note (must be >16min) 10 min in subsequent review and synthesis of assessment and plan 10 min communicating with other providers regarding the patient's case: primary team Advanced Care Planning 09621 Advanced Care Planning 30 Min 23294 Advanced Care Planning Additional 30 Min [place] [address] SUB INP/OBS CARE 3/50MIN (25 - SIGNIFICANT, SEPARATELY IDENTIFIABLE ) Patient Type Established Medical Decision Making High Complexity Diagnoses Generalized pain R52 Anxiety F41.9 Weakness generalized R53.1 Advanced care planning/counseling discussion Z71.89 Leg pain, bilateral M79.604; M79.605 Pain, upper back M54.9 Denial as mental defense mechanism R45.89 Bilateral leg edema R60.0 Palliative care by specialist Z51.5 Additional Codes Advanced Care Planning - 81297 Advanced Care Planning 30 Min: 38439 Advanced Care Planning 30 Min ([id number]) Advanced Care Planning - 82702 Advanced Care Planning Additional 30 Min: 26575 Advanced Care Planning Additional 30 Min ([id number])
[2024-03-03] MEDS: fentaNYL 12 MCG/HR TDSY TD SCH (19:37)
[2024-03-03] MEDS: PANTOprazole 40 MG TAB PO SCH (20:32)
[2024-03-03] MEDS: POLYETHYLENE (MIRALAX) 17 GM PACK PO ONE (20:33)
[2024-03-04] MEDS: CHECK fentaNYL PATCH PLACEMENT SCH (01:00)
[2024-03-04] MEDS: ONDANSETRON INJ 2 MG/ML 2 ML VIAL IV PRN (08:09)
[2024-03-04] MEDS: metOLazone 5 MG TABLET PO SCH (08:11)
[2024-03-04] MEDS: ALBUT/IPRATROP 3MG/0.5MG NEB 3 ML VIAL NEB PRN (08:36)
--- NOTE | 2024-03-04 14:31 | Hospitalist Progress Note ---
Date of Service March 04, 2024 Assessment & Plan (1) Congestive heart failure: Plan: Acute on chronic HFpEF Still with some bilateral leg edema She was on comfort measures only, but that order has been removed although there is no escalation in care and to focus on comfort but she is hopeful for some rehab to return to independent living Pt with history of afib, leadless pacemaker, no rate controlling medication at this time Continue torsemide and metolazone Monitor input and output, daily weights. (2) Acute blood loss anemia: Plan: In the setting of being on anticoagulation due to mechanical valve Intramuscular hematoma in the left iliopsoas muscle likely accounts for the recent drop in hemoglobin Coumadin held even though there is a risk of thrombosis due to mechanical valves. PT has entered into comfort care and no further labs to be drawn- hemoglobin improved from previous at 7.7 on 03/02 The patient also has a history of GI bleed in the past and multiple occasions of requiring blood transfusions The patient was discharged from [facility] to SNF at [place] 02/24, hospice pending. She was discharged off of Coumadin. She got 1 unit of blood with improvement in her hemoglobin and blood pressure as well Her stool was positive for occult blood. GI was consulted. They did not recommended the intervention at this time. They advanced her diet. - This is the main reason for her admission - Plan to keep Coumadin on hold (3) Hyponatremia: Plan: There has been no lab draws since 03/02/2024, the last drawl was sodium of 125 (4) Chronic lower back pain: Plan: Most likely due to the intramuscular iliopsoas hematoma. Continue IV Dilaudid for breakthrough pain control, add fentanyl patch 12 mcg every 72 hours Also with neck and upper back muscle spasm and torticollis-added Robaxin 500 Mg p.o. 3 times daily (5) H/O mechanical aortic valve replacement: Plan: Coumadin has been discontinued because of intramuscular hematoma in the left iliopsoas muscle and numerous GI bleeds Pt has decided on comfort care/no escalation of care Plan Hypothyroidism, continues on Synthroid DNR/DNI -Patient left [facility] AMA, went to son's house and was immediately brought to the hospital by EMS. -Currently no defined disposition but now she is looking into independent apartments but I am not sure if she will be able to care for herself. aerospace manager is in discussions with patient about finding SNF in the meantime Will reorder PT/OT consults as she is now interested in short-term rehab stay prior to getting back to independent living she still wants to focus on quality of life as she knows her prognosis overall is poor Admission and Anticipated Discharge Date Admission Date: February 26, 2024 Subjective Patient seen and examined, on the phone trying to get somebody to retrieve her car which is parked at the parking lot of [facility]. Review of Systems Review of Systems: All systems reviewed are negative, apart from the ones contained in the history. Physical Exam Physical Exam: The patient is awake, alert and oriented 3, well developed and well nourished,Kyphotic posture HEENT--PERRL, EOMI, mucous membranes and oropharynx mildly dry Neck--supple. No JVD. No bruits. Thyroid normal, trachea midline, no adenopathy. Heart--normal S1 and S2. No murmurs, rubs or gallops. Lungs--clear bilaterally, no respiratory distress, no accessory muscle use. Abdomen--normal bowel sounds and soft. Extremities--no cyanosis or clubbing. Mild leg edema Dermatologic--normal skin turgor, normal color, no abnormal lymph nodes, no rash. Neurologic--cranial nerves II through XII grossly intact. Rheumatologic--normal range of motion. Psychiatric--normal affect. Results & Data Results & Data Vital Signs (Past 12 Hours) Vital Signs Temp Pulse Resp BP Pulse Ox O2 Del Method 03/04/24 08:37 70 18 94 Room Air 03/04/24 08:18 Room Air 03/04/24 07:25 97.5 F L 71 18 109/70 92 Room Air PG Care Time/CCT Total # of Minutes Spent Total Time Spent with Patient: Total time spent is greater than 50% in coordination of care (as documented) at patient's floor/unit and/or counseling patient: Coding Level of Care Code 27127 SUB INP/OBS CARE 2/35MIN Diagnoses Congestive heart failure I50.9 Acute blood loss anemia D62 Hyponatremia E87.1 Chronic lower back pain M54.50; G89.29 H/O mechanical aortic valve replacement Z95.2 Time Spent (min) 35
[2024-03-05 07:36] LABS: BUN Creatinine Ratio 45.8 (10-20); Calcium 8.8 mg/dl (8.6-10.3); Est GFR (African American) 29.9 ml/min; Est GFR (Non-African American) 25.8 ml/min
--- NOTE | 2024-03-05 11:58 | Hospitalist Progress Note ---
Date of Service March 05, 2024 Assessment & Plan (1) Congestive heart failure: Plan: Acute on chronic HFpEF Still with some bilateral leg edema She was on comfort measures only, but that order has been removed although there is no escalation in care and to focus on comfort but she is hopeful for some rehab to return to independent living Pt with history of afib, leadless pacemaker, no rate controlling medication at this time Continue torsemide and metolazone Monitor input and output, daily weights. (2) Acute blood loss anemia: Plan: In the setting of being on anticoagulation due to mechanical valve Intramuscular hematoma in the left iliopsoas muscle likely accounts for the recent drop in hemoglobin Coumadin held even though there is a risk of thrombosis due to mechanical valves. PT has entered into comfort care and no further labs to be drawn- hemoglobin improved from previous at 7.7 on 03/02 The patient also has a history of GI bleed in the past and multiple occasions of requiring blood transfusions The patient was discharged from [facility] to SNF at [place] 02/24, hospice pending. She was discharged off of Coumadin. She got 1 unit of blood with improvement in her hemoglobin and blood pressure as well Her stool was positive for occult blood. GI was consulted. They did not recommended the intervention at this time. They advanced her diet. - This is the main reason for her admission - Plan to keep Coumadin on hold (3) Hyponatremia: Plan: Sodium today 127, from 125 on 03/02/2024 (4) Chronic lower back pain: Plan: Most likely due to the intramuscular iliopsoas hematoma. Continue IV Dilaudid for breakthrough pain control, add fentanyl patch 12 mcg every 72 hours Also with neck and upper back muscle spasm and torticollis-added Robaxin 500 Mg p.o. 3 times daily (5) H/O mechanical aortic valve replacement: Plan: Coumadin has been discontinued because of intramuscular hematoma in the left iliopsoas muscle and numerous GI bleeds Pt has decided on comfort care/no escalation of care (6) Acute kidney injury: Plan: Some improvement in renal function Continue to monitor Avoid nephrotoxic's. Plan Hypothyroidism, continues on Synthroid DNR/DNI -Patient left [facility] AMA, went to son's house and was immediately brought to the hospital by EMS. -Currently no defined disposition but now she is looking into independent apartments but I am not sure if she will be able to care for herself. eye clinic manager is in discussions with patient about finding SNF in the meantime Will reorder PT/OT consults as she is now interested in short-term rehab stay prior to getting back to independent living she still wants to focus on quality of life as she knows her prognosis overall is poor Admission and Anticipated Discharge Date Admission Date: February 26, 2024 Subjective Patient seen and examined, States she has started out the issue with her car, however according to RN has been refusing vital signs Review of Systems Review of Systems: All systems reviewed are negative, apart from the ones contained in the history. Physical Exam Physical Exam: The patient is awake, alert and oriented 3, well developed and well nourished,Kyphotic posture HEENT--PERRL, EOMI, mucous membranes and oropharynx mildly dry Neck--supple. No JVD. No bruits. Thyroid normal, trachea midline, no adenopathy. Heart--normal S1 and S2. No murmurs, rubs or gallops. Lungs--clear bilaterally, no respiratory distress, no accessory muscle use. Abdomen--normal bowel sounds and soft. Extremities--no cyanosis or clubbing. Mild leg edema Dermatologic--normal skin turgor, normal color, no abnormal lymph nodes, no rash. Neurologic--cranial nerves II through XII grossly intact. Rheumatologic--normal range of motion. Psychiatric--normal affect. PG Care Time/CCT Total # of Minutes Spent Total Time Spent with Patient: Total time spent is greater than 50% in coordination of care (as documented) at patient's floor/unit and/or counseling patient: Coding Level of Care Code 17661 SUB INP/OBS CARE 2/35MIN Diagnoses Congestive heart failure I50.9 Acute blood loss anemia D62 Hyponatremia E87.1 Chronic lower back pain M54.50; G89.29 H/O mechanical aortic valve replacement Z95.2 Acute kidney injury N17.9 Time Spent (min) 35
--- NOTE | 2024-03-05 16:49 | Ultrasound Report ---
US abdomen ltd ascites HISTORY: 64 years-old Female ascites follow-up study in a patient with ascites COMPARISON: 02/26/2024 TECHNIQUE: Multiple real-time sonographic images of the abdominal structures were obtained assessing grayscale appearance FINDINGS: Cholelithiasis redemonstrated. Trace abdominal pelvic ascites. IMPRESSION: 1. Trace abdominal pelvic ascites is unchanged from prior. 2. Cholelithiasis. ACT 112: Negative or not required by law. The above report was generated using voice recognition software. It may contain grammatical, syntax o r spelling errors. Electronically signed by: Festus Blake M.D. 03/05/2024 4:48 PM
--- NOTE | 2024-03-06 10:23 | Hospitalist Progress Note ---
Date of Service March 06, 2024 Assessment & Plan (1) Congestive heart failure: Plan: Acute on chronic HFpEF Still with some bilateral leg edema She was on comfort measures only, but that order has been removed although there is no escalation in care and to focus on comfort but she is hopeful for some rehab to return to independent living Pt with history of afib, leadless pacemaker, no rate controlling medication at this time Continue torsemide and metolazone Monitor input and output, daily weights. Continue compression stockings (2) Acute blood loss anemia: Plan: In the setting of being on anticoagulation due to mechanical valve Intramuscular hematoma in the left iliopsoas muscle likely accounts for the recent drop in hemoglobin Coumadin held even though there is a risk of thrombosis due to mechanical valves. PT has entered into comfort care and no further labs to be drawn- hemoglobin improved from previous at 7.7 on 03/02 The patient also has a history of GI bleed in the past and multiple occasions of requiring blood transfusions The patient was discharged from [facility] to SNF at [place] 02/24, hospice pending. She was discharged off of Coumadin. She got 1 unit of blood with improvement in her hemoglobin and blood pressure as well Her stool was positive for occult blood. GI was consulted. They did not recommended the intervention at this time. They advanced her diet. - This is the main reason for her admission - Plan to keep Coumadin on hold (3) Hyponatremia: Plan: Last sodium check was 127 from 03/05/2024 Patient often refuses labs and vital signs (4) Chronic lower back pain: Plan: Most likely due to the intramuscular iliopsoas hematoma. Continue IV Dilaudid for breakthrough pain control, add fentanyl patch 12 mcg every 72 hours Also with neck and upper back muscle spasm and torticollis-added Robaxin 500 Mg p.o. 3 times daily (5) H/O mechanical aortic valve replacement: Plan: Coumadin has been discontinued because of intramuscular hematoma in the left iliopsoas muscle and numerous GI bleeds Pt has decided on comfort care/no escalation of care (6) Acute kidney injury: Plan: Some improvement in renal function Continue to monitor Avoid nephrotoxic's. Plan Hypothyroidism, continues on Synthroid DNR/DNI -Patient left [facility] AMA, went to son's house and was immediately brought to the hospital by EMS. -Currently no defined disposition but now she is looking into independent apartments but I am not sure if she will be able to care for herself. supplier development manager is in discussions with patient about finding SNF in the meantime She has a very complicated disposition for now, social work on consult. Admission and Anticipated Discharge Date Admission Date: February 26, 2024 Subjective Patient seen and examined, Feels about the same Review of Systems Review of Systems: All systems reviewed are negative, apart from the ones contained in the history. Physical Exam Physical Exam: The patient is awake, alert and oriented 3, well developed and well nourished,Kyphotic posture HEENT--PERRL, EOMI, mucous membranes and oropharynx mildly dry Neck--supple. No JVD. No bruits. Thyroid normal, trachea midline, no adenopathy. Heart--normal S1 and S2. No murmurs, rubs or gallops. Lungs--clear bilaterally, no respiratory distress, no accessory muscle use. Abdomen--normal bowel sounds and soft. Extremities--no cyanosis or clubbing. Mild leg edema Dermatologic--normal skin turgor, normal color, no abnormal lymph nodes, no rash. Neurologic--cranial nerves II through XII grossly intact. Rheumatologic--normal range of motion. Psychiatric--normal affect. Results & Data Results & Data Vital Signs (Past 12 Hours) Vital Signs Temp Pulse Resp BP Pulse Ox O2 Del Method 03/06/24 08:11 97.5 F L 72 16 92/58 L 97 Room Air 03/06/24 08:00 Room Air PG Care Time/CCT Total # of Minutes Spent Total Time Spent with Patient: Total time spent is greater than 50% in coordination of care (as documented) at patient's floor/unit and/or counseling patient: Coding Level of Care Code 69186 SUB INP/OBS CARE 2/35MIN Diagnoses Congestive heart failure I50.9 Acute blood loss anemia D62 Hyponatremia E87.1 Chronic lower back pain M54.50; G89.29 H/O mechanical aortic valve replacement Z95.2 Acute kidney injury N17.9 Time Spent (min) 35
[2024-03-06] MEDS: BENZONATATE 100 MG CAPSULE PO SCH (12:54)
[2024-03-06] MEDS: CHLORASEPTIC (PHENOL) 1.4% SOLN 180 ML BTL MT PRN (12:55)
[2024-03-07 08:02] LABS: BUN Creatinine Ratio 51.7 (10-20); Calcium 8.6 mg/dl (8.6-10.3); Creatinine Clr Calc Pharmacy 34.6 ml/min; Est GFR (African American) 35.5 ml/min; Est GFR (Non-African American) 30.7 ml/min; Potassium 2.1 mmol/L (3.5-5.1)
[2024-03-07] MEDS: POTASSIUM CHLORIDE CRTAB 20 MEQ TABCR PO STA ×2 (09:05→20:52)
--- NOTE | 2024-03-07 10:05 | Hospitalist Progress Note ---
Date of Service March 07, 2024 Assessment & Plan (1) Acute blood loss anemia: Plan: In the setting of being on anticoagulation due to mechanical valve Intramuscular hematoma in the left iliopsoas muscle likely accounts for the recent drop in hemoglobin Coumadin held even though there is a risk of thrombosis due to mechanical valves. PT has entered into comfort care and no further labs to be drawn- hemoglobin improved from previous at 7.7 on 03/02 The patient also has a history of GI bleed in the past and multiple occasions of requiring blood transfusions The patient was discharged from [facility] to [facility] [place] 02/24, hospice pending. She was discharged off of Coumadin. She got 1 unit of blood with improvement in her hemoglobin and blood pressure as well -Her Last CT scan of the abdomen showed stable hematoma that was on 02/26/2024. -However today 03/07/2024, patient said she wanted to be restarted on her Coumadin -We will restart her home Coumadin. She takes 4 mg Wednesday and 2 mg on Wednesday (2) Congestive heart failure: Plan: Acute on chronic HFpEF Still with some bilateral leg edema She was on comfort measures only, but that order has been removed although there is no escalation in care and to focus on comfort but she is hopeful for some rehab to return to independent living Pt with history of afib, leadless pacemaker, no rate controlling medication at this time Continue torsemide and metolazone Monitor input and output, daily weights. Continue compression stockings (3) Hyponatremia: Plan: Last sodium check was 127 from 03/05/2024 Patient often refuses labs and vital signs (4) Chronic lower back pain: Plan: Most likely due to the intramuscular iliopsoas hematoma. Continue IV Dilaudid for breakthrough pain control, add fentanyl patch 12 mcg every 72 hours Also with neck and upper back muscle spasm and torticollis-added Robaxin 500 Mg p.o. 3 times daily (5) H/O mechanical aortic valve replacement: Plan: Coumadin has been discontinued because of intramuscular hematoma in the left iliopsoas muscle and numerous GI bleeds Pt has decided on comfort care/no escalation of care (6) Acute kidney injury: Plan: Some improvement in renal function Continue to monitor Avoid nephrotoxic's. (7) Hypokalemia: Plan: Hypokalemia, potassium 2.1 today Due to high doses of torsemide Will replace Plan Hypothyroidism, continues on Synthroid DNR/DNI -Patient left [facility] home AMA, went to son's house and was immediately brought to the hospital by EMS. -Currently no defined disposition but now she is looking into independent apartments but I am not sure if she will be able to care for herself. manager document is in discussions with patient about finding SNF in the meantime She has a very complicated disposition for now, social work on consult. Admission and Anticipated Discharge Date Admission Date: February 26, 2024 Subjective Patient seen and examined, Feels about the same Review of Systems Review of Systems: All systems reviewed are negative, apart from the ones contained in the history. Physical Exam Physical Exam: The patient is awake, alert and oriented 3, well developed and well nourished,Kyphotic posture HEENT--PERRL, EOMI, mucous membranes and oropharynx mildly dry Neck--supple. No JVD. No bruits. Thyroid normal, trachea midline, no adenopathy. Heart--normal S1 and S2. No murmurs, rubs or gallops. Lungs--clear bilaterally, no respiratory distress, no accessory muscle use. Abdomen--normal bowel sounds and soft. Extremities--no cyanosis or clubbing. Mild leg edema Dermatologic--normal skin turgor, normal color, no abnormal lymph nodes, no rash. Neurologic--cranial nerves II through XII grossly intact. Rheumatologic--normal range of motion. Psychiatric--normal affect. Results & Data Results & Data Vital Signs (Past 12 Hours) Vital Signs Temp Pulse Resp BP BP Pulse Ox O2 Del Method 03/07/24 09:41 Room Air 03/07/24 07:16 97.7 F 71 16 96/60 L 94 Room Air 03/07/24 00:53 108/72 03/06/24 22:25 97.8 F 73 16 97/59 L 94 Room Air PG Care Time/CCT Total # of Minutes Spent Total Time Spent with Patient: Total time spent is greater than 50% in coordination of care (as documented) at patient's floor/unit and/or counseling patient: Coding Level of Care Code 62897 SUB INP/OBS CARE 2/35MIN Diagnoses Acute blood loss anemia D62 Congestive heart failure I50.9 Hyponatremia E87.1 Chronic lower back pain M54.50; G89.29 H/O mechanical aortic valve replacement Z95.2 Acute kidney injury N17.9 Hypokalemia E87.6 Time Spent (min) 35
[2024-03-07] MEDS: POTASSIUM CHLORIDE CRTAB 20 MEQ TABCR PO SCH (13:37)
[2024-03-07] MEDS: CHECK fentaNYL PATCH PLACEMENT SCH (15:13)
[2024-03-07] MEDS: fentaNYL 25 MCG/HR TDSY TD SCH (15:13)
[2024-03-07] MEDS: WARFARIN SOD 4 MG TAB PO SCH (15:14)
--- NOTE | 2024-03-07 20:05 | Palliative Care Progress Note ---
Date of Service March 07, 2024 Assessment & Plan (1) Generalized pain: Plan: Edema isnt any better and her abdomen today looks more distended to me. Pain is "so so - since we are working to SNF dc, will transition to an oral regimen she can take outside the hospital: Im stopping the IV dilaudid and moving her to oral dilaudid 2mg po q4h prn and have increased her fentanyl patch to 25mcg. (2) Anxiety: (3) Weakness generalized: (4) Advanced care planning/counseling discussion: Plan: Dilma and I had a 60min face to face ACP discussion. During this lengthy conversation, we reviewed dispo options. She tried to say she didnt want snf/only apartment; I discussed that unfortunately she cannot stay in the hospital until she finds an apartment and has to have a place for when the acute admission is over. She mentioned leaving AMA from prior SNF and we discussed where would she go if that happens again - she mentioned a alf and I advised that AMA dc is unadvised and that a alf wouldnt be safe for her given the medical complexity. I told her that a SNF is where she could be safe/have med mgt/nursing support and PT while she continues her apartment search. When she finds her apartment she can be dc from snf. She agreed to snf dc with rehab as long as she isnt on a dementia unit or roomed with a dementia pt. Shed like a private room but is aware that isnt likely in snf setting. Dilma is content with SNF option in [facility] area. She had previously stated this is it is near boyfriend, but when I asked her if he was happy that she would be closer to his home, she replied they aren't officially a couple, they have been off/on for many years,/he is volatile/neglectful/hurtful but she wants to be available to him/be support since his dad is on hospice and also, she is seeking that area bc it is closer to her [place] providers. She then went on to share details about her past emotional traumas including childhood, siblings, workplace, failed marriages and failed interpersonal relationships as well as the failures/declines in her medical health. She has in the past sought psychiatric help and counseling to help heal the trauma. I asked her what about this current situation with her off/on boyfriend made it valuable to her and she could not answer. I asked if her if perhaps the on/off boyfriend is another representation/version of past failed romantic partnerships and challenged her that it seemed, from what she shared in details, that he is another source of trauma in her life. She fell silent then stated this was the first time anyone had challenged her with that perspective and she identified with its reasoning. She states she may be holding on bc she wants companionship, has few friends and no signif family support. We discussed that friendships can be built without romantic expectations, and that furthermore, she has been spending an inordinate amount of time trying to help/fix/be present for someone who isn't there for her in any capacity and she is now in a place where that support is needed to be given to her not going from her to another. She has a lot on her plate and a very complex medical situation. Perhaps this is a time in her life where she needs to consider trying a different strategy instead of the patterns of old - focus on herself, her wellness, her needs and use this time to work on building connections with people around her who are more engaged in helping her, whether that is a healthcare team or neighbors at a SNF or her new neighbors when she moves into her apartment. I encouraged her to engage in community events at SNF as well as in the greater community, to build these new connections and establish lines of support through friendship. She expressed a wish to 'do something but not just sit at home' and we spoke about ways she can donate her time to help those in her community. There are options/ways to help that do not require physical exertion. She was happy to think about these new options./perspectives. We concluded today's discussion with the thought that we do not need to be tied to our past in ways that feel predictive of our future. We have the ability to change our course in life through better choices and valuing ourselves more consistently. We also agreed that while hope is an important emotional element of life, it is not a plan for future steps. It is important to hold on hope but we cannot enforce it as a plan of care. She was in agreement and thankful for our talk today. (5) Leg pain, bilateral: (6) Pain, upper back: (7) Denial as mental defense mechanism: (8) Bilateral leg edema: (9) Palliative care by specialist: Plan Pain changes as above Edema no better Abd slightly more distended She insisted on restarting anticoag with Coumadin Monitoring for bleeding ACp as above, extensive counseling today Thank you for allowing us to participate in the ongoing care of this patient. Please page with any additional concerns. Zane Crews DNP Director, Palliative Medicine Admission and Anticipated Discharge Date Admission Date: February 26, 2024 Results & Data Vital Signs (Past 12 Hours) Vital Signs Temp Pulse Resp BP Pulse Ox O2 Del Method 03/07/24 15:44 36.5 C 70 16 106/62 100 Room Air 03/07/24 09:41 Room Air PG Care Time/CCT Total # of Minutes Spent Total Time Spent with Patient: Total time spent is greater than 50% in coordination of care (as documented) at patient's floor/unit and/or counseling patient: I spent 110 minutes overall addressing this case: 5 min in medical data review/discussion with referring provider(s) and/or preparation for the visit 15 min in direct interaction with the patient/exam 60 min in Advance Care Planning/Goals of Care discussions as detailed above in note (must be >16min) 15 min in subsequent review and synthesis of assessment and plan 15 min communicating with other providers regarding the patient's case: primary team, care mgt Advanced Care Planning 02254 Advanced Care Planning 30 Min 28311 Advanced Care Planning Additional 30 Min [place] [address] SUB INP/OBS CARE 3/50MIN (25 - SIGNIFICANT, SEPARATELY IDENTIFIABLE ) Patient Type Established Medical Decision Making High Complexity Diagnoses Generalized pain R52 Anxiety F41.9 Weakness generalized R53.1 Advanced care planning/counseling discussion Z71.89 Leg pain, bilateral M79.604; M79.605 Pain, upper back M54.9 Denial as mental defense mechanism R45.89 Bilateral leg edema R60.0 Palliative care by specialist Z51.5 Additional Codes Advanced Care Planning - 63129 Advanced Care Planning 30 Min: 62828 Advanced Care Planning 30 Min ([id number]) Advanced Care Planning - 31588 Advanced Care Planning Additional 30 Min: 62135 Advanced Care Planning Additional 30 Min ([id number])
[2024-03-07] MEDS: ONDANSETRON INJ 2 MG/ML 2 ML VIAL IV PRN (23:48)
[2024-03-08] MEDS: HYDROmorphone HCL 2 MG TAB PO PRN ×2 (02:52→20:33)
[2024-03-08 08:21] LABS: BUN Creatinine Ratio 51.5 (10-20); Calcium 8.6 mg/dl (8.6-10.3); Creatinine Clr Calc Pharmacy 36.1 ml/min; Est GFR (African American) 37.4 ml/min; Est GFR (Non-African American) 32.2 ml/min; Potassium 2.9 mmol/L (3.5-5.1)
[2024-03-08 08:22] LABS: INR 1.2 (0.9-1.1); Prothrombin Time 12.9 Seconds (9.0-12.0)
[2024-03-08] MEDS: POTASSIUM CHLORIDE CRTAB 20 MEQ TABCR PO STA (10:16)
--- NOTE | 2024-03-08 11:10 | Hospitalist Progress Note ---
Date of Service March 08, 2024 Assessment & Plan (1) H/O mechanical aortic valve replacement: Plan: Coumadin has been resumed upon the patients request INR 1.2 today She takes 4 mg Wednesday and 2 mg on Wednesday (2) Acute blood loss anemia: Plan: -Stable hb -Her Last CT scan of the abdomen showed stable hematoma that was on 02/26/2024. -However 03/07/2024, patient said she wanted to be restarted on her Coumadin -We will restart her home Coumadin. (3) Congestive heart failure: Plan: Acute on chronic HFpEF Still with some bilateral leg edema She was on comfort measures only, but that order has been removed although there is no escalation in care and to focus on comfort but she is hopeful for some rehab to return to independent living Pt with history of afib, leadless pacemaker, no rate controlling medication at this time Continue torsemide and metolazone Monitor input and output, daily weights. Continue compression stockings (4) Hyponatremia: Plan: Last sodium check was 127 from 03/05/2024 Patient often refuses labs and vital signs (5) Chronic lower back pain: Plan: Most likely due to the intramuscular iliopsoas hematoma. Continue IV Dilaudid for breakthrough pain control, add fentanyl patch 12 mcg every 72 hours Also with neck and upper back muscle spasm and torticollis-added Robaxin 500 Mg p.o. 3 times daily (6) Acute kidney injury: Plan: Some improvement in renal function Continue to monitor Avoid nephrotoxic's. (7) Hypokalemia: Plan: Hypokalemia, potassium 2.9 today Due to high doses of torsemide Will replace Plan Hypothyroidism, continues on Synthroid DNR/DNI -Patient left [facility] AMA, went to son's house and was immediately brought to the hospital by EMS. -Currently no defined disposition but now she is looking into independent apartments but I am not sure if she will be able to care for herself. laboratory manager is in discussions with patient about finding SNF in the meantime She has a very complicated disposition for now, social work on consult. Admission and Anticipated Discharge Date Admission Date: February 26, 2024 Subjective Patient seen and examined, Feels about the same Review of Systems Review of Systems: All systems reviewed are negative, apart from the ones contained in the history. Physical Exam Physical Exam: The patient is awake, alert and oriented 3, well developed and well nourished,Kyphotic posture HEENT--PERRL, EOMI, mucous membranes and oropharynx mildly dry Neck--supple. No JVD. No bruits. Thyroid normal, trachea midline, no adenopathy. Heart--normal S1 and S2. No murmurs, rubs or gallops. Lungs--clear bilaterally, no respiratory distress, no accessory muscle use. Abdomen--normal bowel sounds and soft. Extremities--no cyanosis or clubbing. Mild leg edema Dermatologic--normal skin turgor, normal color, no abnormal lymph nodes, no rash. Neurologic--cranial nerves II through XII grossly intact. Rheumatologic--normal range of motion. Psychiatric--normal affect. Results & Data Results & Data Vital Signs (Past 12 Hours) Vital Signs Temp Pulse Resp BP Pulse Ox O2 Del Method 03/08/24 10:41 Room Air 03/08/24 08:25 97.5 F L 71 16 90/44 L 93 Room Air 03/08/24 00:01 Room Air PG Care Time/CCT Total # of Minutes Spent Total Time Spent with Patient: Total time spent is greater than 50% in coordination of care (as documented) at patient's floor/unit and/or counseling patient: Coding Level of Care Code 78004 SUB INP/OBS CARE 2/35MIN Diagnoses H/O mechanical aortic valve replacement Z95.2 Acute blood loss anemia D62 Congestive heart failure I50.9 Hyponatremia E87.1 Chronic lower back pain M54.50; G89.29 Acute kidney injury N17.9 Hypokalemia E87.6 Time Spent (min) 35
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
[2024-03-08] MEDS: LORazepam 1 MG TAB PO PRN (22:42)
[2024-03-09 08:17] LABS: Hematocrit (blood only) 23.5 % (37.0-47.0); Hemoglobin 7.8 g/dl (12.0-16.0); Mean Corpuscular Hemoglobin 32.6 pg (25.0-34.0); Mean Corpuscular Hgb Conc 33.2 g/dL (32.0-36.0); Mean Corpuscular Volume 98.3 fL (80.0-100.0); Mean Platelet Volume 8.9 fL (9.4-12.4); Platelet Count 286 K/uL (130-400); RDW Coefficient of Variation 20.7 % (11.5-14.5); RDW Standard Deviation 75.1 fL (36.4-46.3); Red Blood Count 2.39 M/uL (4.20-5.40); White Blood Count 4.97 K/ul (4.8-10.8)
[2024-03-09 08:42] LABS: INR 1.3 (0.9-1.1); Prothrombin Time 14.2 Seconds (9.0-12.0)
[2024-03-09 08:52] LABS: Est GFR (African American) 31.2 ml/min; Potassium 4.1 mmol/L (3.5-5.1)
[2024-03-09 08:53] LABS: BUN Creatinine Ratio 44.8 (10-20); Calcium 8.8 mg/dl (8.6-10.3); Creatinine Clr Calc Pharmacy 31.1 ml/min; Est GFR (Non-African American) 26.9 ml/min
--- NOTE | 2024-03-09 11:24 | Hospitalist Progress Note ---
Date of Service March 09, 2024 Assessment & Plan (1) H/O mechanical aortic valve replacement: Plan: Coumadin has been resumed upon the patients request INR 1.3 today She takes 4 mg Wednesday and 2 mg on Wednesday (2) Acute blood loss anemia: Plan: -Stable hb -Her Last CT scan of the abdomen showed stable hematoma that was on 02/26/2024. -However 03/07/2024, patient said she wanted to be restarted on her Coumadin -We will restart her home Coumadin. (3) Congestive heart failure: Plan: Acute on chronic HFpEF Still with some bilateral leg edema She was on comfort measures only, but that order has been removed although there is no escalation in care and to focus on comfort but she is hopeful for some rehab to return to independent living Pt with history of afib, leadless pacemaker, no rate controlling medication at this time Continue torsemide and metolazone Monitor input and output, daily weights. Continue compression stockings (4) Hyponatremia: Plan: Some improvement, sodium is 130 today (5) Chronic lower back pain: Plan: Managed by palliative Currently on fentanyl patch, Dilaudid p.o. (6) Acute kidney injury: Plan: Will continue to monitor renal function closely Slight worsening creatinine on account of diuresis Avoid nephrotoxic's. (7) Hypokalemia: Plan: Hypokalemia, potassium 2.9 today Due to high doses of torsemide Will replace Plan Hypothyroidism, continues on Synthroid DNR/DNI -Patient left [facility] AMA, went to son's house and was immediately brought to the hospital by EMS. -Currently no defined disposition but now she is looking into independent apartments but I am not sure if she will be able to care for herself. regulatory compliance manager is in discussions with patient about finding SNF in the meantime She has a very complicated disposition for now, social work on consult.Per clinical social worker, patient does not qualify for SNF unless she pays [id number]. May benefit from personal shelter placement Admission and Anticipated Discharge Date Admission Date: February 26, 2024 Subjective Patient seen and examined today, still has a lot of interpersonal and family issues going on in her life. She changed the POA from her sister to her brother. Review of Systems Review of Systems: All systems reviewed are negative, apart from the ones contained in the history. Physical Exam Physical Exam: The patient is awake, alert and oriented 3, well developed and well nourished,Kyphotic posture HEENT--PERRL, EOMI, mucous membranes and oropharynx mildly dry Neck--supple. No JVD. No bruits. Thyroid normal, trachea midline, no adenopathy. Heart--normal S1 and S2. No murmurs, rubs or gallops. Lungs--clear bilaterally, no respiratory distress, no accessory muscle use. Abdomen--normal bowel sounds and soft. Extremities--no cyanosis or clubbing. Mild leg edema Dermatologic--normal skin turgor, normal color, no abnormal lymph nodes, no rash. Neurologic--cranial nerves II through XII grossly intact. Rheumatologic--normal range of motion. Psychiatric--normal affect. Results & Data Results & Data Vital Signs (Past 12 Hours) Vital Signs Temp Pulse Resp BP Pulse Ox O2 Del Method 03/09/24 08:00 98.2 F 70 16 94/55 L 95 Room Air PG Care Time/CCT Total # of Minutes Spent Total Time Spent with Patient: Total time spent is greater than 50% in coordination of care (as documented) at patient's floor/unit and/or counseling patient: Coding Level of Care Code 70325 SUB INP/OBS CARE 2/35MIN Diagnoses H/O mechanical aortic valve replacement Z95.2 Acute blood loss anemia D62 Congestive heart failure I50.9 Hyponatremia E87.1 Chronic lower back pain M54.50; G89.29 Acute kidney injury N17.9 Hypokalemia E87.6 Time Spent (min) 35
[2024-03-10 07:16] LABS: Hematocrit (blood only) 25.2 % (37.0-47.0); Mean Corpuscular Hemoglobin 32.1 pg (25.0-34.0); Mean Corpuscular Hgb Conc 31.7 g/dL (32.0-36.0); Mean Corpuscular Volume 101.2 fL (80.0-100.0); Mean Platelet Volume 8.7 fL (9.4-12.4); Platelet Count 261 K/uL (130-400); RDW Coefficient of Variation 20.8 % (11.5-14.5); RDW Standard Deviation 76.7 fL (36.4-46.3); Red Blood Count 2.49 M/uL (4.20-5.40); White Blood Count 5.44 K/ul (4.8-10.8)
[2024-03-10 07:30] LABS: BUN Creatinine Ratio 39.2 (10-20); Calcium 8.8 mg/dl (8.6-10.3); Creatinine Clr Calc Pharmacy 25.4 ml/min; Est GFR (African American) 24.5 ml/min; Est GFR (Non-African American) 21.1 ml/min; Potassium 4.4 mmol/L (3.5-5.1)
[2024-03-10 07:40] LABS: INR 1.9 (0.9-1.1); Prothrombin Time 19.3 Seconds (9.0-12.0)
--- NOTE | 2024-03-10 10:43 | Hospitalist Progress Note ---
Date of Service March 10, 2024 Assessment & Plan (1) H/O mechanical aortic valve replacement: Plan: Coumadin has been resumed upon the patients request INR 1.9 today She takes 4 mg Wednesday and 2 mg on Wednesday (2) Acute blood loss anemia: Plan: -Stable hb -Her Last CT scan of the abdomen showed stable hematoma that was on 02/26/2024. -However 03/07/2024, patient said she wanted to be restarted on her Coumadin -We will restart her home Coumadin. (3) Congestive heart failure: Plan: Acute on chronic HFpEF Still with some bilateral leg edema She was on comfort measures only, but that order has been removed although there is no escalation in care and to focus on comfort but she is hopeful for some rehab to return to independent living Pt with history of afib, leadless pacemaker, no rate controlling medication at this time Continue torsemide and metolazone Monitor input and output, daily weights. Continue compression stockings (4) Hyponatremia: Plan: Some improvement, sodium is 133 today (5) Chronic lower back pain: Plan: Managed by palliative Currently on fentanyl patch, Dilaudid p.o. (6) Acute kidney injury: Plan: Will continue to monitor renal function closely Slight worsening creatinine on account of diuresis Avoid nephrotoxic's. (7) Hypokalemia: Plan: Hypokalemia, potassium 2.7 today Due to high doses of torsemide Will replace Plan Hypothyroidism, continues on Synthroid DNR/DNI -Patient left [facility] AMA, went to son's house and was immediately brought to the hospital by EMS. -Currently no defined disposition but now she is looking into independent apartments but I am not sure if she will be able to care for herself. rn manager is in discussions with patient about finding SNF in the meantime She has a very complicated disposition for now, social work on consult.Per social insurance analyst, patient does not qualify for SNF unless she pays [id number], She does not have money to pay. May benefit from personal jail placement Admission and Anticipated Discharge Date Admission Date: February 26, 2024 Subjective Patient seen and examined today, No new complaints today Review of Systems Review of Systems: All systems reviewed are negative, apart from the ones contained in the history. Physical Exam Physical Exam: The patient is awake, alert and oriented 3, well developed and well nourished,Kyphotic posture HEENT--PERRL, EOMI, mucous membranes and oropharynx mildly dry Neck--supple. No JVD. No bruits. Thyroid normal, trachea midline, no adenopathy. Heart--normal S1 and S2. No murmurs, rubs or gallops. Lungs--clear bilaterally, no respiratory distress, no accessory muscle use. Abdomen--normal bowel sounds and soft. Extremities--no cyanosis or clubbing. Mild leg edema Dermatologic--normal skin turgor, normal color, no abnormal lymph nodes, no rash. Neurologic--cranial nerves II through XII grossly intact. Rheumatologic--normal range of motion. Psychiatric--normal affect. Results & Data Results & Data Vital Signs (Past 12 Hours) Vital Signs Temp Pulse Resp BP Pulse Ox O2 Del Method 03/10/24 07:55 Room Air 03/10/24 07:27 99.0 F 74 16 101/51 L 90 Room Air PG Care Time/CCT Total # of Minutes Spent Total Time Spent with Patient: Total time spent is greater than 50% in coordination of care (as documented) at patient's floor/unit and/or counseling patient: Coding Level of Care Code 64744 SUB INP/OBS CARE 2/35MIN Diagnoses H/O mechanical aortic valve replacement Z95.2 Acute blood loss anemia D62 Congestive heart failure I50.9 Hyponatremia E87.1 Chronic lower back pain M54.50; G89.29 Acute kidney injury N17.9 Hypokalemia E87.6 Time Spent (min) 35
[2024-03-10] MEDS: WARFARIN SOD 2 MG TAB PO SCH (15:18)
[2024-03-10] MEDS ORDERED: WARFARIN SOD 2 MG TAB PO SCH (16:00)
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
[2024-03-11 07:43] LABS: INR 2.6 (0.9-1.1); Prothrombin Time 26.1 Seconds (9.0-12.0)
--- NOTE | 2024-03-11 11:26 | Hospitalist Progress Note ---
Date of Service March 11, 2024 Assessment & Plan (1) Congestive heart failure: Plan: Acute on chronic HFpEF Still with some bilateral leg edema And worsening abdominal swelling with anasarca She was on comfort measures only, but She still wants to get some of her medi cations. Initially on p.o. torsemide, however will convert to IV Bumex 2 mg twice daily, continue metolazone Pt with history of afib, leadless pacemaker, no rate controlling medication at this time Monitor input and output, daily weights. Continue compression stockings (2) H/O mechanical aortic valve replacement: Plan: Coumadin has been resumed upon the patients request INR 2.6 today She takes 4 mg Wednesday and 2 mg on Wednesday (3) Acute blood loss anemia: Plan: -Stable hb -Her Last CT scan of the abdomen showed stable hematoma that was on 02/26/2024. -However 03/07/2024, patient said she wanted to be restarted on her Coumadin -We will restart her home Coumadin. (4) Hyponatremia: Plan: Some improvement, sodium is 133 today (5) Chronic lower back pain: Plan: Managed by palliative Currently on fentanyl patch, Dilaudid p.o. (6) Acute kidney injury: Plan: Will continue to monitor renal function closely Slight worsening creatinine on account of diuresis Avoid nephrotoxic's. (7) Hypokalemia: Plan: Hypokalemia, potassium 2.7 today Due to high doses of torsemide Will replace Plan Hypothyroidism, continues on Synthroid DNR/DNI -Patient left [facility] AMA, went to son's house and was immediately brought to the hospital by EMS. -Currently no defined disposition but now she is looking into independent apartments but I am not sure if she will be able to care for herself. foundry manager is in discussions with patient about finding SNF in the meantime She has a very complicated disposition for now, social work on consult.Per web content & social media manager, patient does not qualify for SNF unless she pays [id number], She does not have money to pay. May benefit from personal correction placement Admission and Anticipated Discharge Date Admission Date: February 26, 2024 Subjective Patient seen and examined, worsening abdominal distention and leg swelling Review of Systems Review of Systems: All systems reviewed are negative, apart from the ones contained in the history. Physical Exam Physical Exam: The patient is awake, alert and oriented 3, well developed and well nourished,Kyphotic posture HEENT--PERRL, EOMI, mucous membranes and oropharynx mildly dry Neck--supple. No JVD. No bruits. Thyroid normal, trachea midline, no adenopathy. Heart--normal S1 and S2. No murmurs, rubs or gallops. Lungs--clear bilaterally, no respiratory distress, no accessory muscle use. Abdomen--Worsening abdominal distention Extremities--no cyanosis or clubbing. Mild leg edema Dermatologic--normal skin turgor, normal color, no abnormal lymph nodes, no rash. Neurologic--cranial nerves II through XII grossly intact. Rheumatologic--normal range of motion. Psychiatric--normal affect. Results & Data Results & Data Vital Signs (Past 12 Hours) Vital Signs Temp Pulse Resp BP Pulse Ox O2 Del Method 03/11/24 07:54 92 Room Air 03/11/24 07:40 Room Air 03/11/24 07:15 98.1 F 71 16 98/57 L 90 Room Air PG Care Time/CCT Total # of Minutes Spent Total Time Spent with Patient: Total time spent is greater than 50% in coordination of care (as documented) at patient's floor/unit and/or counseling patient: Coding Level of Care Code 58631 SUB INP/OBS CARE 2/35MIN Diagnoses Congestive heart failure I50.9 H/O mechanical aortic valve replacement Z95.2 Acute blood loss anemia D62 Hyponatremia E87.1 Chronic lower back pain M54.50; G89.29 Acute kidney injury N17.9 Hypokalemia E87.6 Time Spent (min) 35
[2024-03-11] MEDS ORDERED: WARFARIN SOD 2 MG TAB PO SCH (16:00)
[2024-03-11] MEDS: WARFARIN SOD 4 MG TAB PO SCH (16:58)
[2024-03-11] MEDS: BUMETANIDE 2 MG in SYRINGE 0 ML IV SCH (17:23)
[2024-03-11] MEDS: POTASSIUM CHLORIDE 10 MEQ TABCR PO SCH (21:51)
[2024-03-12 06:56] LABS: BUN Creatinine Ratio 48.1 (10-20); Calcium 8.9 mg/dl (8.6-10.3); Creatinine Clr Calc Pharmacy 27.9 ml/min; Est GFR (African American) 27.4 ml/min; Est GFR (Non-African American) 23.6 ml/min; Potassium 4.1 mmol/L (3.5-5.1)
[2024-03-12 07:18] LABS: INR 3.3 (0.9-1.1); Prothrombin Time 32.4 Seconds (9.0-12.0)
[2024-03-12] MEDS: POTASSIUM CHLORIDE 10 MEQ TABCR PO SCH (08:30)
[2024-03-13 09:27] LABS: Calcium 8.8 mg/dl (8.6-10.3); Potassium 3.2 mmol/L (3.5-5.1)
[2024-03-13 09:35] LABS: BUN Creatinine Ratio 52.3 (10-20); Creatinine Clr Calc Pharmacy 30.9 ml/min; Est GFR (Non-African American) 26.7 ml/min
[2024-03-13] MEDS ORDERED: POTASSIUM CHLORIDE CRTAB 20 MEQ TABCR PO STA (10:23)
[2024-03-13] MEDS ORDERED: Nursing to Pharmacy Communication SCH (10:30)
--- NOTE | 2024-03-13 10:55 | Hospitalist Progress Note ---
Date of Service March 13, 2024 Assessment & Plan (1) Congestive heart failure: Plan: Acute on chronic HFpEF Still with some bilateral leg edema And worsening abdominal swelling with anasarca She was supposed to be on comfort measures only, but She still wants to get some of her medications. Initially on p.o. torsemide, however will convert to IV Bumex 2 mg twice daily, continue metolazone Still not making enough urine, Will consider increasing the Bumex however I am wary of her kidney functions Monitor input and output, daily weights. Continue compression stockings (2) H/O mechanical aortic valve replacement: Plan: Coumadin has been resumed upon the patients request INR 3.2 today She takes 4 mg Wednesday and 2 mg on Wednesday (3) Acute blood loss anemia: Plan: -Stable hb -Her Last CT scan of the abdomen showed stable hematoma that was on 02/26/2024. -However 03/07/2024, patient said she wanted to be restarted on her Coumadin -We will restart her home Coumadin per her request (4) Hyponatremia: Plan: Some improvement, sodium is 133 today (5) Chronic lower back pain: Plan: Managed by palliative Currently on fentanyl patch, IV Dilaudid and also p.o. (6) Acute kidney injury: Plan: Will continue to monitor renal function closely Slight worsening creatinine on account of diuresis Avoid nephrotoxic's. (7) Hypokalemia: Plan: Hypokalemia, potassium 2.7 today Due to high doses of diuretics Will replace (8) Atrial flutter: Plan: Pt with history of afib, leadless pacemaker, no rate controlling medication at this time Plan Hypothyroidism, continues on Synthroid DNR/DNI, She is supposed to be on comfort care however patient has insisted that she wants to get her medicines, Coumadin, diuretics E TC. -Patient left [facility] AMA, went to son's house and was immediately brought to the hospital by EMS. -Currently no defined disposition but now she is looking into independent apartments but I am not sure if she will be able to care for herself. software sales manager is in discussions with patient about finding SNF in the meantime She has a very complicated disposition for now, social work on consult.Per social media marketing analyst, patient does not qualify for SNF unless she pays [id number], She does not have money to pay. May benefit from personal correction placement Admission and Anticipated Discharge Date Admission Date: February 26, 2024 Subjective Patient seen and examined, worsening abdominal distention and leg swelling Review of Systems Review of Systems: All systems reviewed are negative, apart from the ones contained in the history. Physical Exam Physical Exam: The patient is awake, alert and oriented 3, well developed and well nourished,Kyphotic posture HEENT--PERRL, EOMI, mucous membranes and oropharynx mildly dry Neck--supple. No JVD. No bruits. Thyroid normal, trachea midline, no adenopathy. Heart--normal S1 and S2. No murmurs, rubs or gallops. Lungs--clear bilaterally, no respiratory distress, no accessory muscle use. Abdomen--Worsening abdominal distention Extremities--no cyanosis or clubbing. Mild leg edema Dermatologic--normal skin turgor, normal color, no abnormal lymph nodes, no rash. Neurologic--cranial nerves II through XII grossly intact. Rheumatologic--normal range of motion. Psychiatric--normal affect. Results & Data Results & Data Vital Signs (Past 12 Hours) Vital Signs Temp Pulse Resp BP Pulse Ox O2 Del Method 03/13/24 09:00 Room Air 03/13/24 07:33 97.9 F 72 18 102/55 L 97 Room Air PG Care Time/CCT Total # of Minutes Spent Total Time Spent with Patient: Total time spent is greater than 50% in coordination of care (as documented) at patient's floor/unit and/or counseling patient: Coding Level of Care Code 68949 SUB INP/OBS CARE 2/35MIN Diagnoses Congestive heart failure I50.9 H/O mechanical aortic valve replacement Z95.2 Acute blood loss anemia D62 Hyponatremia E87.1 Chronic lower back pain M54.50; G89.29 Acute kidney injury N17.9 Hypokalemia E87.6 Atrial flutter I48.92 Time Spent (min) 35
[2024-03-13] MEDS: POTASSIUM CHLORIDE 10 MEQ TABCR PO STA (10:56)
[2024-03-13 11:57] LABS: INR 3.3 (0.9-1.1); Prothrombin Time 32.2 Seconds (9.0-12.0)
[2024-03-13] MEDS: HYDROmorphone INJ 0.5 MG/0.5 ML SYR IV PRN (14:28)
[2024-03-14 09:45] LABS: Hematocrit (blood only) 26.9 % (37.0-47.0); Hemoglobin 8.4 g/dl (12.0-16.0); Mean Corpuscular Hemoglobin 31.6 pg (25.0-34.0); Mean Corpuscular Hgb Conc 31.2 g/dL (32.0-36.0); Mean Corpuscular Volume 101.1 fL (80.0-100.0); Mean Platelet Volume 9.2 fL (9.4-12.4); Platelet Count 273 K/uL (130-400); RDW Standard Deviation 74.4 fL (36.4-46.3); Red Blood Count 2.66 M/uL (4.20-5.40); White Blood Count 4.65 K/ul (4.8-10.8)
[2024-03-14 10:01] LABS: Calcium 9.1 mg/dl (8.6-10.3); Creatinine Clr Calc Pharmacy 29.8 ml/min; Est GFR (African American) 29.7 ml/min; Est GFR (Non-African American) 25.6 ml/min; Magnesium 2.3 mg/dl (1.7-2.4); Potassium 3.9 mmol/L (3.5-5.1)
--- NOTE | 2024-03-14 10:52 | Hospitalist Progress Note ---
Date of Service March 14, 2024 Assessment & Plan (1) Congestive heart failure: Plan: Acute on chronic HFpEF. (prior baseline weight ~140lb) 168lb on admission Still with some bilateral leg edema And worsening abdominal swelling with anasarca She was supposed to be on comfort measures only, but she still wants to get some of her medications and actually reports wanting to get back into an apartment Leg edema reportedly unchanged during exam 03/14 Initially on 100mg torsemide PO BID through 03/09 and doesn't appear to have gotten any further IV diuretic until switching to BUMEX 2mg IV BID PM 03/11 but was continued on metolazone 5mg PO daily --> INCREASING BUMEX TO 4mg IV BID FOR THIS EVENING 03/14, continue metolazone 5mg PO daily. Suspect w/ her CKD would need higher doses of diuretics to be effective MONITOR FOR ADDITION OF SPIRONOLACTONE to prevent hypokalemia/assist w/ diuresis Added daily weights, I&Os to monitor output but poor PO intake Continue compression stockings Repeat PT/OT evals placed CM contacted as patient wanting dispo planning w/ her brother Deangelo ([phone]) and NOT to contact her sister at this time Monitor volume status in AM/consider further increase but cautiously with her kidneys BMP in AM, added BNP as well Renal dose meds/avoid nephrotoxins (2) H/O mechanical aortic valve replacement: Plan: Coumadin has been resumed upon the patients request Coumadin reportedly resumed however appears still on hold INR 3.3 yesterday HOLD REMOVED FROM COUMADIN --w/ parameters to hold for INR >3.5 She takes 4 mg Wednesday and 2 mg on Wednesday INR in AM (3) Acute blood loss anemia: Plan: Stable hb Her Last CT scan of the abdomen showed stable hematoma that was on 02/26/2024. However 03/07/2024, patient said she wanted to be restarted on her Coumadin We will restart her home Coumadin per her request Does have hx GIB, is on protonix BID and has been continued (4) Hyponatremia: Plan: Some improvement however remains low. TSH wnl on admission Na 131, suspect from volume overload as above Bumex increased as outlined/monitor on repeat (5) Chronic lower back pain: Plan: Managed by palliative Currently on fentanyl patch, IV Dilaudid and also p.o. fentanyl patch increased for baseline pain control, palliative continues to follow/appreciate recs/assistance (6) Acute kidney injury: Plan: Suspect worsening w/ diuresis however w/ less dosing than home torsemide, see above about increasing her bumex/monitoring response Renal dose meds/avoid nephrotoxins as able BMP IN AM (7) Hypokalemia: Plan: suspect 2nd to diuresis, replacement ordered MONITOR FOR SPIRONOLACTONE IN ADDITION TO HER BUMEX FOR DIURESIS PENDING REPEAT KIDNEY FUNCTION BMP in AM (8) Atrial flutter: Plan: Pt with history of afib, leadless pacemaker, no rate controlling medication at this time is on coumadin, INR acceptable as above and resumed/monitoring INR HR in 70s Plan DNR/DNI, She is supposed to be on comfort care however patient has insisted that she wants to get her medicines, Coumadin, diuretics E TC and working on changing diuretics/dispo planning as above Continue support provided, asked nursing to take for walks in the [place] today/etc. Dispo: ongoing inpatient stay * She has a very complicated disposition for now, social work on consult. * Per social service assistant, patient does not qualify for SNF unless she pays [id number], She does not have money to pay. May benefit from personal alf placement * Unclear and do not suspect able to care for herself at this time and needing SNF but asked CM to contact her brother per patient request to discuss about possible apartment search as desired but otherwise would need to plan for SNF from hospital in meantime given poor social support Patient left [facility] and went to son's house and was brought to hospital by EMS. Admission and Anticipated Discharge Date Admission Date: February 26, 2024 Supervising Physician Co-Signing Physician Notes The patient was not seen by me. The chart was reviewed. Case discussed with YRN Morrison. Agree with assessment and plan Subjective Evaluated this morning around 10:30, she reports he pain is fairly well controlled. Thinks leg swelling about the same as when she came in but abdominal swelling/fullness improved. Moved bowels 4-5x/day. Not taking much PO intake at all. Discussed anxiety, she is tearful about being in the hospital and feeling like no one is here to support her. She reports no one able to help walk in [place], discussed will touch base with nursing and ensure taking for a couple walks. Very tearful, support provided. Appreciated support. Inquiring about discharge planning/status of apartments - she does NOT want her sister called w/ update/planning and wants her brother Deangelo contacted. Number [phone]. Number provided to for dispo planning. Physical Exam Physical Exam: 64yo female standing up in the room, NAD but tearful/poor support and no one able to take her for a walk Head atraumatic, normocephalic, mm dry, trachea midline Resp: even/unlabored, diminished in the bases, on room air CV: rrr, +systolic murmur, +b/l LE edema persists, stockings in place GI: +BS, distension but no overt tenderness to palpation MSK/Neuro: nonfocal, answering questions appropriately, not confused kyphotic Psych: Alert/oriented x 3, tearful support provided, improved on repeat eval Results & Data Results & Data Vital Signs (Past 12 Hours) Vital Signs Temp Pulse Resp BP Pulse Ox O2 Del Method 03/14/24 08:06 71 71 H 03/14/24 07:40 Room Air 03/14/24 07:34 36.4 C L 71 16 113/72 94 Room Air Laboratory Results 03/14/24 03/14/24 03/14/24 Range/Units 09:00 09:00 09:00 WBC (4.8-10.8) K/ul RBC (4.20-5.40) M/uL Hgb (12.0-16.0) g/dl Hct (37.0-47.0) % MCV (80.0-100.0) fL MCH (25.0-34.0) pg MCHC (32.0-36.0) g/dL RDW Std Deviation (36.4-46.3) fL RDW Coeff of Dunia (11.5-14.5) % Plt Count (130-400) K/uL MPV (9.4-12.4) fL Sodium Potassium Chloride Carbon Dioxide Anion Gap BUN Creatinine Est Cr Clr Drug Dosing Est GFR ( Amer) Est GFR (Non-Af Amer) BUN/Creatinine Ratio 51.0 H Glucose 136 H Cancelled Calcium 9.1 Cancelled Magnesium 2.3 (1.7-2.4) mg/dl Iron 43 (35-150) mcg/dl TIBC 339 (250-450) mcg/dl Unsaturated IBC 296 (155-355) mcg/dl Transferrin % Sat 13 L (15-50) % Ferritin 316.0 (8-388) ng/ml 03/14/24 03/14/24 03/14/24 Range/Units 09:00 09:00 09:00 WBC (4.8-10.8) K/ul RBC (4.20-5.40) M/uL Hgb (12.0-16.0) g/dl Hct (37.0-47.0) % MCV (80.0-100.0) fL MCH (25.0-34.0) pg MCHC (32.0-36.0) g/dL RDW Std Deviation (36.4-46.3) fL RDW Coeff of Dunia (11.5-14.5) % Plt Count (130-400) K/uL MPV (9.4-12.4) fL Sodium Potassium Chloride Carbon Dioxide Anion Gap BUN Creatinine Est Cr Clr Drug Dosing 29.8 Est GFR ( Amer) 29.7 Cancelled Est GFR (Non-Af Amer) 25.6 Cancelled BUN/Creatinine Ratio Cancelled Glucose Calcium Magnesium (1.7-2.4) mg/dl Iron (35-150) mcg/dl TIBC (250-450) mcg/dl Unsaturated IBC (155-355) mcg/dl Transferrin % Sat (15-50) % Ferritin (8-388) ng/ml 03/14/24 03/14/24 03/14/24 Range/Units 09:00 09:00 09:00 WBC (4.8-10.8) K/ul RBC (4.20-5.40) M/uL Hgb (12.0-16.0) g/dl Hct (37.0-47.0) % MCV (80.0-100.0) fL MCH (25.0-34.0) pg MCHC (32.0-36.0) g/dL RDW Std Deviation (36.4-46.3) fL RDW Coeff of Dunia (11.5-14.5) % Plt Count (130-400) K/uL MPV (9.4-12.4) fL Sodium Potassium Chloride Carbon Dioxide Anion Gap 10 BUN 103 H Cancelled Creatinine 2.02 H Cancelled Est Cr Clr Drug Dosing Cancelled Est GFR ( Amer) Est GFR (Non-Af Amer) BUN/Creatinine Ratio Glucose Calcium Magnesium (1.7-2.4) mg/dl Iron (35-150) mcg/dl TIBC (250-450) mcg/dl Unsaturated IBC (155-355) mcg/dl Transferrin % Sat (15-50) % Ferritin (8-388) ng/ml 03/14/24 03/14/24 03/14/24 Range/Units 09:00 09:00 09:00 WBC (4.8-10.8) K/ul RBC (4.20-5.40) M/uL Hgb (12.0-16.0) g/dl Hct (37.0-47.0) % MCV (80.0-100.0) fL MCH (25.0-34.0) pg MCHC (32.0-36.0) g/dL RDW Std Deviation (36.4-46.3) fL RDW Coeff of Dunia (11.5-14.5) % Plt Count (130-400) K/uL MPV (9.4-12.4) fL Sodium Potassium 3.9 D Chloride 93 L Cancelled Carbon Dioxide 28 Cancelled Anion Gap Cancelled BUN Creatinine Est Cr Clr Drug Dosing Est GFR ( Amer) Est GFR (Non-Af Amer) BUN/Creatinine Ratio Glucose Calcium Magnesium (1.7-2.4) mg/dl Iron (35-150) mcg/dl TIBC (250-450) mcg/dl Unsaturated IBC (155-355) mcg/dl Transferrin % Sat (15-50) % Ferritin (8-388) ng/ml 03/14/24 03/14/24 Range/Units 09:00 09:00 WBC 4.65 L (4.8-10.8) K/ul RBC 2.66 L (4.20-5.40) M/uL Hgb 8.4 L (12.0-16.0) g/dl Hct 26.9 L (37.0-47.0) % MCV 101.1 H (80.0-100.0) fL MCH 31.6 (25.0-34.0) pg MCHC 31.2 L (32.0-36.0) g/dL RDW Std Deviation 74.4 H (36.4-46.3) fL RDW Coeff of Dunia 20.0 H (11.5-14.5) % Plt Count 273 (130-400) K/uL MPV 9.2 L (9.4-12.4) fL Sodium 131 L Cancelled Potassium Cancelled Chloride Carbon Dioxide Anion Gap BUN Creatinine Est Cr Clr Drug Dosing Est GFR ( Amer) Est GFR (Non-Af Amer) BUN/Creatinine Ratio Glucose Calcium Magnesium (1.7-2.4) mg/dl Iron (35-150) mcg/dl TIBC (250-450) mcg/dl Unsaturated IBC (155-355) mcg/dl Transferrin % Sat (15-50) % Ferritin (8-388) ng/ml PG Care Time/CCT Total # of Minutes Spent Total Time Spent with Patient: Total time spent is greater than 50% in coordination of care (as documented) at patient's floor/unit and/or counseling patient: Coding Level of Care Code 12103 SUB INP/OBS CARE 3/50MIN Diagnoses Congestive heart failure I50.9 H/O mechanical aortic valve replacement Z95.2 Acute blood loss anemia D62 Hyponatremia E87.1 Chronic lower back pain M54.50; G89.29 Acute kidney injury N17.9 Hypokalemia E87.6 Atrial flutter I48.92
--- NOTE | 2024-03-14 12:24 | Palliative Care Progress Note ---
Date of Service March 14, 2024 Assessment & Plan (1) Generalized pain: Plan: Using Dilaudid 2mg IV daily for BTP Will increase TDF by 12mcg for total daily dose of 37mcg q3days No change to prn Dilaudid (2) Anxiety: Plan: Ativan prn (3) Weakness generalized: Plan: Asking for walks, staff will try to assist with ambulation through the day, PT reconsulted (4) Advanced care planning/counseling discussion: Plan: ACP face to face x 50min at bedside She remains despondent Feels a lack fo support - no family, no friends Has cut off communication with her sisters: "they are problematic and untrustworthy" Designated her brother as JESSICA but has not been able to reach him She says she found an apartment that can be toured on (tomorrow) however she remains inpatient. I encouraged her to ask if perhaps they can offer her a video tour. She is also frustrated by unsuccessful attempts to recoup her back pay, states her company is based in [facility] therefore trying to figure out/research [facility] Labor laws. Extended supportive counseling provided to pt. Reviewed her feelings of isolation, lack of support and abandonment by family and the on/off again signif other who has been sporadically speaking with her but spending most of hose discussions speaking about his worries -she states he is currently "over under on his mortgage but found a new house that's all one floor that he wants to buy but he has no money so I have been trying to help him find financing options." When asked how he has offered some support to her she fell silent and became tearful once more, noting no one has time or worries for her. Extensive support provided. Reviewed methods for improving her well being and self care through meditation and relaxation exercises/breathing exercises. Encouraged journaling, either writing or electronically. She declines antidepressant therapy. Overall plan of care does not seem to be overly aligned with comfort. She has resumed regular labs, diuretics and anticoagulation. She had a PT eval resumed and although diuretics have not done much to improve her BLE edema, she remains [id number] on current anticoagulation. (5) Leg pain, bilateral: (6) Pain, upper back: (7) Denial as mental defense mechanism: (8) Palliative care by specialist: Plan As above; TDF increased. Personal care placement attempts underway, pt also continues her efforts to find an apartment and has been in contact with a home health agency as well. I spent 100 minutes overall addressing this case: 5 min in medical data review/discussion with referring provider(s) and/or preparation for the visit 15 min in direct interaction with the patient/exam 50 min in Advance Care Planning/Goals of Care discussions as d etailed above in note (must be >16min) 15 min in subsequent review and synthesis of assessment and plan 15 min communicating with other providers regarding the patient's case: primary team, nursing Thank you for allowing us to participate in the ongoing care of this patient. Please page with any additional concerns. Zane Crews DNP Director, Palliative Medicine Admission and Anticipated Discharge Date Admission Date: February 26, 2024 Loli Perera is seen bedside, sitting at edge of bed No family present She states she would like all communication with her brother from now on and this is also reflected in the new POLST and POA documents we completed last week. She is tearful today, frustrated by lack of available dispo options and that she can't just be given an apartment to be dc to from here We discussed CM is working on personal care options for her, awaiting responses Pain is ok, using 4 doses of Dilaudid 0.5mg /day for BTP, this sis 2mg per day IV Dilaudid along with TDF 25mcg/hr q3days She is using Ativan 1mg IV at bedtime most nights Appetite is ok BMs formed no n/v/d/c denies chest pain, resp distress wants to be more active, asking if she can have more walks through the day seems to be tolerating Coumadin, no new/obvious bleeding Review of Systems Review of Systems: All systems reviewed & are unremarkable except as noted in Subjective Physical Exam Physical Exam: Chronically ill-appearing female, seated at edge of the bed Mild bitemporal wasting. kyphotic hunch, chin tucked down towards her chest, limited ROM PERRLA, EOMI's. Neck is supple and without stridor, no gross JVD noted Respiratory effort normal. Mild conversational dyspnea. Lungs are diminished but overall clear. +mild conversational dyspnea with prolonged discussion. Intermittent dry cough S1-S2, + murmur, harsh; no JVD Abdomen soft, more distended, bowel sounds present Bilateral lower extremities with severe erythematous edema +3 to +4, pitting, up to the mid thigh. Vascular insufficiency changes to the lower extremities are noted. +palmar violaceous changes c/w vascular insuff, sl dusky nailbeds Awake alert and oriented x 3. + Tangential, tearful at times Skin is pale, warm; scattered ecchymoses, +skin tears with intact dressings Results & Data Vital Signs (Past 12 Hours) Vital Signs Temp Pulse Resp BP Pulse Ox O2 Del Method 03/14/24 08:06 71 71 H 03/14/24 07:40 Room Air 03/14/24 07:34 36.4 C L 71 16 113/72 94 Room Air PG Care Time/CCT Total # of Minutes Spent Total Time Spent with Patient: Total time spent is greater than 50% in coordination of care (as documented) at patient's floor/unit and/or counseling patient: Advanced Care Planning 40829 Advanced Care Planning 30 Min 84235 Advanced Care Planning Additional 30 Min [place] [address] SUB INP/OBS CARE 3/50MIN (25 - SIGNIFICANT, SEPARATELY IDENTIFIABLE ) Patient Type Established Medical Decision Making High Complexity Diagnoses Generalized pain R52 Anxiety F41.9 Weakness generalized R53.1 Advanced care planning/counseling discussion Z71.89 Leg pain, bilateral M79.604; M79.605 Pain, upper back M54.9 Denial as mental defense mechanism R45.89 Palliative care by specialist Z51.5 Additional Codes Advanced Care Planning - 76997 Advanced Care Planning 30 Min: 01063 Advanced Care Planning 30 Min ([id number]) Advanced Care Planning - 36498 Advanced Care Planning Additional 30 Min: 32387 Advanced Care Planning Additional 30 Min ([id number])
[2024-03-14] MEDS: fentaNYL 25 MCG/HR TDSY TD SCH (12:41)
[2024-03-14] MEDS: fentaNYL 12 MCG/HR TDSY TD SCH (12:41)
[2024-03-14] MEDS: BUMETANIDE 4 MG in SYRINGE 0 ML IV SCH (16:38)
[2024-03-14] MEDS: CHECK fentaNYL PATCH PLACEMENT SCH (16:39)
[2024-03-15 07:58] LABS: Basophils # (auto) 0.06 K/uL (0.00-0.20); Basophils % (auto) 1.4 %; Eosinophils # (auto) 0.45 K/uL (0.00-0.50); Eosinophils % (auto) 10.6 %; Hematocrit (blood only) 26.1 % (37.0-47.0); Hemoglobin 8.5 g/dl (12.0-16.0); Immature Granulocytes # (auto) 0.02 K/uL (0.01-0.20); Immature Granulocytes % (auto) 0.5 %; Lymphocytes # (auto) 0.22 K/uL (1.20-3.40); Lymphocytes % (auto) 5.2 %; Mean Corpuscular Hemoglobin 32.4 pg (25.0-34.0); Mean Corpuscular Hgb Conc 32.6 g/dL (32.0-36.0); Mean Corpuscular Volume 99.6 fL (80.0-100.0); Mean Platelet Volume 9.2 fL (9.4-12.4); Monocytes # (auto) 0.52 K/uL (0.11-0.59); Monocytes % (auto) 12.3 %; Neutrophils # (auto) 2.96 K/uL (1.40-6.50); Platelet Count 289 K/uL (130-400); RDW Coefficient of Variation 19.4 % (11.5-14.5); RDW Standard Deviation 70.5 fL (36.4-46.3); Red Blood Count 2.62 M/uL (4.20-5.40); White Blood Count 4.23 K/ul (4.8-10.8)
[2024-03-15 08:05] LABS: Albumin Globulin Ratio 1.1 (0.9-2); BUN Creatinine Ratio 53.1 (10-20); Bilirubin,Total 0.8 mg/dl (0.2-1.0); Calcium 9.3 mg/dl (8.6-10.3); Est GFR (African American) 28.8 ml/min; Est GFR (Non-African American) 24.9 ml/min; Globulin 3.8 gm/dl (2.5-4.0); Magnesium 2.3 mg/dl (1.7-2.4); Potassium 4.1 mmol/L (3.5-5.1); Total Protein 7.8 gm/dl (6.0-8.3)
[2024-03-15 08:09] LABS: INR 2.8 (0.9-1.1); Prothrombin Time 27.6 Seconds (9.0-12.0)
[2024-03-15] MEDS: METOPROLOL SUCC 25MG EXT REL TAB PO SCH (10:56)
--- NOTE | 2024-03-15 12:45 | Hospitalist Progress Note ---
Date of Service March 15, 2024 Assessment & Plan (1) Congestive heart failure: Plan: Acute on chronic HFpEF. (prior baseline weight ~140lb) 168lb on admission. Previously on high-dose torsemide but now on intravenous Bumex. Clinically, inspiratory rales are present but this could be chronic. Portable chest x-ray was ordered but she refused. Fortunately, she is on room air. (2) H/O mechanical aortic valve replacement: Plan: History of rheumatic heart disease. She has a*Carlton mitral valve in place and a mechanical aortic valve in place. She also underwent tricuspid valve annuloplasty. Chronic Coumadin therapy. INR is 2.8 today, March 15 (3) Acute blood loss anemia: Plan: Hemoglobin is in the 8-9 range and currently stable. Unfortunately she requires chronic systemic anticoagulation due to presence of mechanical heart valves. Serial labs (4) Hyponatremia: Plan: Mild. Serial labs. Asymptomatic (5) Chronic lower back pain: Plan: Managed by palliative care. Currently on fentanyl patch and using intravenous Dilaudid as needed. (6) Acute kidney injury: Plan: Acute on chronic kidney disease stage III. Creatinine has stabilized around 2.0. Monitor intake and output. Serial labs (7) Hypokalemia: Plan: Corrected with oral replacement. Serial labs (8) Atrial flutter: Plan: Pt with history of afib/flutter. History of complete heart block with permanent pacemaker insertion in September 2018. Telemetry. Plan DNR/DNI status. Previously on comfort care however patient has insisted that she wants to get her medicines, Coumadin, diuretics. Placement pending. Admission and Anticipated Discharge Date Admission Date: February 26, 2024 Subjective Alert and oriented. Portable chest x-ray was ordered but the patient refused. Metoprolol succinate has been restarted. Intake equals output despite high-dose intravenous Bumex. Placement remains pending Review of Systems 2 Review of Systems: Constitutional-no fever or chills ENT-no blurred vision, no double vision, no epistaxis, no sore throat Respiratory-no cough, no wheezing, no shortness of breath at rest Cardiac-no palpitations, no chest pain, no syncope GI-no nausea, vomiting, diarrhea, melena, hematochezia -no urinary retention, no urinary incontinence, no dysuria, no hematuria Musculoskeletal-no joint pain, no muscle tenderness Skin-no bruising, no rashes, no pruritus Neuro-no isolated weakness, no paresthesia, no weakness Psych-no depression, no anxiety Physical Exam 2 Physical Exam: General-alert and oriented x3, no fever, no chills HEENT-head atraumatic and normocephalic, pupils equal and reactive to light, extraocular muscles intact Neck-no lymphadenopathy or thyromegaly, trachea midline Chest-bibasilar inspiratory rales. No wheezing. No rhonchi. Cardiac-regular rate and rhythm, normal S1 and S2. Grade 2/6 systolic murmur at the left sternal border Abdomen-normal bowel sounds, no hepatosplenomegaly Gwphnqggump-0-5+ edema bilateral lower extremities below the knees Neuro-cranial nerves II through XII intact, motor and sensory function within normal limits, strength symmetrical, no focal deficits Psych-flat affect Results & Data Results & Data Vital Signs (Past 12 Hours) Vital Signs Temp Pulse Resp BP Pulse Ox O2 Del Method 03/15/24 11:30 Room Air 03/15/24 08:01 36.4 C L 70 16 130/84 95 Room Air Laboratory Results 03/15/24 07:29 03/15/24 07:29 PG Care Time/CCT Total # of Minutes Spent Total Time Spent with Patient: Total time spent is greater than 50% in coordination of care (as documented) at patient's floor/unit and/or counseling patient: Coding Level of Care Code 60090 SUB INP/OBS CARE 3/50MIN Diagnoses Congestive heart failure I50.9 H/O mechanical aortic valve replacement Z95.2 Acute blood loss anemia D62 Hyponatremia E87.1 Chronic lower back pain M54.50; G89.29 Acute kidney injury N17.9 Hypokalemia E87.6 Atrial flutter I48.92
--- NOTE | 2024-03-15 17:51 | Palliative Care Progress Note ---
Date of Service March 15, 2024 Assessment & Plan (1) Generalized pain: Plan: Continue TDF 37mcg q3days No change to prn Dilaudid (2) Suffering: Plan: 20 min face to face ACP about suffering and the effects of ACP: we acknowledged her h/o behav health issues, manipulates reporting with different team members. Her perception of placement issues is skewed from reality and she has been unwilling to see how her refusals/resistance have added to the complexity. We spoke for 15min about efforts undertaken here to help her and how hard care shon is working to try and find a compromise for a place that can accept her but also is to her liking/is where she desires geographically/is covered by her insurance etc. Reviewed that her apartment efforts have to be through her directly because as she knows, medical teams cannot visit apartments for her and coordinate private leases - these are things out of our scope of practice. We talked about mechanisms to help improve her coping which she has not tried to date including but not limited to journaling, calling a friend, reconnecting with family, reconnecting with prior mental health provider/coordinated a telemed session for herself, breathing/meditation exercises etc. Extensive support provided. Reassured medical teams are here to continue caring for her and we empathize with her frustration. Everyone is doing their best, we know she would rather in her own private space. [facility] teams are trying hard to balance her need for space and privacy with clinical obligations. (3) Denial as mental defense mechanism: (4) Anxiety: Plan: Ativan prn (5) Weakness generalized: Plan: Asking for walks, staff will try to assist with ambulation through the day, PT reconsulted (6) Advanced care planning/counseling discussion: Plan: ACP face to face x 45min at bedside, 20min dedicated to suffering as outlined above in #2 encouraged her to connect with family, discuss feasibility with brother of living with him. I suggested a family meeting which she agrees to and so I offered a family meeting for Wednesday which she stated would be the best day for him, and I offered morning and afternoon times which she wrote down and states she will call her brother and let me know (7) Leg pain, bilateral: (8) Pain, upper back: (9) Palliative care by specialist: Plan As above Personal care placement attempts underway I spent 90 minutes overall addressing this case: 10 min in medical data review/discussion with referring provider(s) and/or preparation for the visit 15 min in direct interaction with the patient/exam 45 min in Advance Care Planning/Goals of Care discussions as detailed above in note (must be >16min) 10 min in subsequent review and synthesis of assessment and plan 10 min communicating with other providers regarding the patient's case: primary team, nursing Thank you for allowing us to participate in the ongoing care of this patient. Please page with any additional concerns. Zane Crews DNP Director, Palliative Medicine Admission and Anticipated Discharge Date Admission Date: February 26, 2024 Loli Perera is sobbing at edge of bed when I came to see her this early afternoon. She states she is lonely, abandoned and cannot find anyone to help her find a home - when asked for a example she states no one is helping her find a place to live, she feels the teams should help find her an apartment/go look at apartment and determine if it's suitable for her. She says she is "homeless and no one cares.". I reviewed with her the extensive efforts of the care mgt team, the options which have been presented and the limits she insisted on geographically/her prior refusals/facility declinations to date. We discussed how the teams are committed to helping her but we are required to help in the parameters of our practice and cannot be the group that goes apartment hunting for her. She states that she feels stuck in the hospital, states "it feels like this is going to be where I'm forced to be for like the next 6 months." Pain is ok Anxiety is increased Abd edema seems a little less walked with PT, feels better moving appetite stable, eating well,. continues ordering most meals/snacks via [employer] states she had her car towed from [facility] to a local [employer] dealership for "repair and to have a new mckeon made bc my sister took the mckeon and won't send it back" has not spoken with her brother but feels he should let her move in with him however has not asked states she cannot / will not live with her son no longer speaking with her sisters says she has been trying to reach her [place] docs to schedule her appts with nephro, cards, heme, functional medicine. Review of Systems Review of Systems: All systems reviewed & are unremarkable except as noted in Subjective Physical Exam Physical Exam: Chronically ill-appearing female, seated at edge of the bed, tearful today Mild bitemporal wasting. kyphotic hunch, chin tucked down towards her chest, limited ROM PERRLA, EOMI's. Neck is supple and without stridor, no gross JVD noted Respiratory effort normal. Mild conversational dyspnea. Lungs are diminished but overall clear. +mild conversational dyspnea with prolonged discussion. Intermittent dry cough S1-S2, + murmur, harsh; no JVD Abdomen soft, distended, bowel sounds present Bilateral lower extremities with severe erythematous edema +3 to +4, pitting, up to the mid thigh. Vascular insufficiency changes to the lower extremities are noted. +palmar violaceous changes c/w vascular insuff, sl dusky nailbeds Awake alert and oriented x 3. + Tangential, +wishful thinking, +perseveration Skin is pale, warm; scattered ecchymoses, +skin tears with intact dressings Results & Data Vital Signs (Past 12 Hours) Vital Signs Temp Pulse Resp BP Pulse Ox O2 Del Method 03/15/24 13:50 36.4 C L 69 18 100/66 96 Room Air 03/15/24 11:30 Room Air 03/15/24 08:01 36.4 C L 70 16 130/84 95 Room Air Laboratory Results Abnormal lab results 03/15/24 Range/Units 07:29 WBC 4.23 L (4.8-10.8) K/ul RBC 2.62 L (4.20-5.40) M/uL Hgb 8.5 L (12.0-16.0) g/dl Hct 26.1 L (37.0-47.0) % RDW Std Deviation 70.5 H (36.4-46.3) fL RDW Coeff of Dunia 19.4 H (11.5-14.5) % MPV 9.2 L (9.4-12.4) fL Lymph # (Auto) 0.22 L (1.20-3.40) K/uL PT 27.6 H (9.0-12.0) Seconds INR 2.8 H (0.9-1.1) Sodium 131 L (136-145) mmol/L Chloride 92 L (98-107) mmol/L Anion Gap 12 H (3-11) BUN 110 H (6-23) mg/dl Creatinine 2.07 H (0.6-1.2) mg/dl BUN/Creatinine Ratio 53.1 H (10-20) Glucose 120 H (70-99(Fasting)) mg/dl Alkaline Phosphatase 160 H (34-104) U/L B-Natriuretic Peptide 1068 H (0-100) pg/ml PG Care Time/CCT Total # of Minutes Spent Total Time Spent with Patient: Total time spent is greater than 50% in coordination of care (as documented) at patient's floor/unit and/or counseling patient: Advanced Care Planning 93846 Advanced Care Planning 30 Min 69811 Advanced Care Planning Additional 30 Min [place] [address] SUB INP/OBS CARE 3/50MIN (25 - SIGNIFICANT, SEPARATELY IDENTIFIABLE ) Patient Type Established Medical Decision Making High Complexity Diagnoses Generalized pain R52 Suffering Denial as mental defense mechanism R45.89 Anxiety F41.9 Weakness generalized R53.1 Advanced care planning/counseling discussion Z71.89 Leg pain, bilateral M79.604; M79.605 Pain, upper back M54.9 Palliative care by specialist Z51.5 Additional Codes Advanced Care Planning - 58873 Advanced Care Planning 30 Min: 20815 Advanced Care Planning 30 Min ([id number]) Advanced Care Planning - 92259 Advanced Care Planning Additional 30 Min: 17925 Advanced Care Planning Additional 30 Min ([id number])
--- NOTE | 2024-03-16 10:05 | XRay Report ---
SINGLE VIEW CHEST CLINICAL HISTORY: Congestive heart failure. FINDINGS: An AP, portable, upright chest radiograph is compared to study dated 08/07/2022 and correla scar with chest CT dated 02/16/2023. An electronic device projects over the left lower chest. The patie nt is status post midline sternotomy and cardiac valve surgery. Epicardial leads are in place. The he art is enlarged and atherosclerotic calcification of the thoracic ureter. There is evidence of conges tive failure with pulmonary edema. Small pleural effusions are suspected. Atelectasis is noted at the lung bases. No pneumothorax is seen. The skeletal structures are osteopenic. There is chronic deform ity of the right proximal humerus. IMPRESSION: 1. Cardiomegaly with evidence of congestive failure and pulmonary edema. 2. Small pleural effusions are suspected. ACT 112: Negative or not required by law. Electronically signed by: Felice Galarza M.D. 03/16/2024 10:04 AM
--- NOTE | 2024-03-16 11:24 | Hospitalist Progress Note ---
Date of Service March 16, 2024 Assessment & Plan (1) Congestive heart failure: Plan: Acute on chronic HFpEF. (prior baseline weight ~140lb) 168lb on admission. Previously on high-dose torsemide then switched to intravenous Bumex with little effect. She agrees to a trial of a Lasix continuous infusion. She is also on metolazone daily. She agreed to portable chest x-ray today, March 16, which reveals cardiomegaly with evidence of CHF. Fortunately, she is on room air. (2) H/O mechanical aortic valve replacement: Plan: History of rheumatic heart disease. She has a White-Carlton mitral valve in place and a mechanical aortic valve in place. She also underwent tricuspid valve annuloplasty. Chronic Coumadin therapy. INR was 2.8 yesterday, March 15 (3) Acute blood loss anemia: Plan: Hemoglobin is in the 8-9 range and currently stable. Unfortunately she requires chronic systemic anticoagulation due to presence of mechanical heart valves. Serial labs (4) Hyponatremia: Plan: Mild. Serial labs. Asymptomatic (5) Chronic lower back pain: Plan: Managed by palliative care. Currently on fentanyl patch and using intravenous Dilaudid as needed. (6) Acute kidney injury: Plan: Acute on chronic kidney disease stage III. Creatinine has stabilized around 2.0. Monitor intake and output. Serial labs (7) Hypokalemia: Plan: Corrected with oral replacement. Serial labs (8) Atrial flutter: Plan: Pt with history of afib/flutter. History of complete heart block with permanent pacemaker insertion in September 2018. Telemetry. Plan DNR/DNI status. Previously on comfort care however patient has insisted that she wants to get her medicines, Coumadin, diuretics. Placement pending. Admission and Anticipated Discharge Date Admission Date: February 26, 2024 Subjective Awake and alert. Flat affect. She gave consent for portable chest x-ray which reveals cardiomegaly and CHF. She also agrees to a trial of a Lasix drip infusion to replace the intravenous Bumex. She already is on metolazone. Daily labs will be monitored Review of Systems 2 Review of Systems: Constitutional-no fever or chills ENT-no blurred vision, no double vision, no epistaxis, no sore throat Respiratory-no cough, no wheezing, no shortness of breath at rest Cardiac-no palpitations, no chest pain, no syncope GI-no nausea, vomiting, diarrhea, melena, hematochezia -no urinary retention, no urinary incontinence, no dysuria, no hematuria Musculoskeletal-no joint pain, no muscle tenderness Skin-no bruising, no rashes, no pruritus Neuro-no isolated weakness, no paresthesia, no weakness Psych-no depression, no anxiety Physical Exam 2 Physical Exam: General-alert and oriented x3, no fever, no chills HEENT-head atraumatic and normocephalic, pupils equal and reactive to light, extraocular muscles intact Neck-no lymphadenopathy or thyromegaly, trachea midline Chest-bibasilar inspiratory rales. No wheezing. No rhonchi. Cardiac-regular rate and rhythm, normal S1 and S2. Grade 2/6 systolic murmur at the left sternal border Abdomen-normal bowel sounds, no hepatosplenomegaly Extremities- 2+ edema bilateral lower extremities below the knees. Chronic venous stasis changes Neuro-cranial nerves II through XII intact, motor and sensory function within normal limits, strength symmetrical, no focal deficits Psych-flat affect Results & Data Results & Data Vital Signs (Past 12 Hours) Vital Signs Temp Pulse Resp BP BP Pulse Ox O2 Del Method 03/16/24 08:44 73 100/58 L 03/16/24 07:18 37 C 73 14 94/53 L 96 Room Air Laboratory Results 03/15/24 07:29 03/15/24 07:29 PG Care Time/CCT Total # of Minutes Spent Total Time Spent with Patient: Total time spent is greater than 50% in coordination of care (as documented) at patient's floor/unit and/or counseling patient: Coding Level of Care Code 40763 SUB INP/OBS CARE 3/50MIN Diagnoses Congestive heart failure I50.9 H/O mechanical aortic valve replacement Z95.2 Acute blood loss anemia D62 Hyponatremia E87.1 Chronic lower back pain M54.50; G89.29 Acute kidney injury N17.9 Hypokalemia E87.6 Atrial flutter I48.92
[2024-03-16] MEDS: FUROSEMIDE 100 MG in 0.9 % SODIUM CHLORIDE 90 ML IV SCH (13:08)
[2024-03-16] MEDS ORDERED: Nursing to Pharmacy Communication SCH (20:00)
[2024-03-17 08:18] LABS: Prothrombin Time 20.7 Seconds (9.0-12.0)
[2024-03-17 08:46] LABS: BUN Creatinine Ratio 55.8 (10-20); Creatinine Clr Calc Pharmacy 28.4 ml/min; Est GFR (Non-African American) 27.6 ml/min; Potassium 3.1 mmol/L (3.5-5.1)
[2024-03-17] MEDS: POTASSIUM CHLORIDE CRTAB 20 MEQ TABCR PO SCH (09:43)
--- NOTE | 2024-03-17 12:20 | Hospitalist Progress Note ---
Date of Service March 17, 2024 Assessment & Plan (1) Congestive heart failure: Plan: Acute on chronic HFpEF. (prior baseline weight ~140lb) 168lb on admission. Previously on high-dose torsemide then switched to intravenous Bumex with little effect. Lasix infusion increased from 20 mg/h to 40 mg/h today, March 17. She is also on metolazone daily. Portable chest x-ray today on March 16 revealed cardiomegaly with evidence of CHF. Fortunately, she is on room air. (2) H/O mechanical aortic valve replacement: Plan: History of rheumatic heart disease. She has a White-Carlton mitral valve in place and a mechanical aortic valve in place. She also underwent tricuspid valve annuloplasty. Chronic Coumadin therapy. INR 2.0 today, March 17. Will follow (3) Acute blood loss anemia: Plan: Hemoglobin is in the 8-9 range and currently stable. Unfortunately she requires chronic systemic anticoagulation due to presence of mechanical heart valves. Serial labs (4) Hyponatremia: Plan: Mild. Serial labs. Asymptomatic (5) Chronic lower back pain: Plan: Managed by palliative care. Currently on fentanyl patch and using intravenous Dilaudid as needed. (6) Acute kidney injury: Plan: Acute on chronic kidney disease stage III. Creatinine has stabilized around 2.0. Monitor intake and output. Serial labs (7) Hypokalemia: Plan: Low again at 3.1. Oral potassium replacement uptitrated today, March 17. Serial labs (8) Atrial flutter: Plan: Pt with history of afib/flutter. History of complete heart block with permanent pacemaker insertion in September 2018. Telemetry. Plan DNR/DNI status. Previously on comfort care however patient has insisted that she wants to get her medicines, including Coumadin and diuretic therapy. Placement pending. Admission and Anticipated Discharge Date Admission Date: February 26, 2024 Subjective Awake and alert. Flat affect. Case discussed with palliative care. Unfortunately, the patient has put up multiple obstacles to prevent her discharge from this institution. Lasix infusion uptitrated to 40 mg/h. Oral potassium replacement also increased. Creatinine stable at 1.9. Glucose stable at 121. She is on room air. Review of Systems 2 Review of Systems: Constitutional-no fever or chills ENT-no blurred vision, no double vision, no epistaxis, no sore throat Respiratory-no cough, no wheezing, no shortness of breath at rest Cardiac-no palpitations, no chest pain, no syncope GI-no nausea, vomiting, diarrhea, melena, hematochezia -no urinary retention, no urinary incontinence, no dysuria, no hematuria Musculoskeletal-no joint pain, no muscle tenderness Skin-no bruising, no rashes, no pruritus Neuro-no isolated weakness, no paresthesia, no weakness Psych-no depression, no anxiety Physical Exam 2 Physical Exam: General-alert and oriented x3, no fever, no chills HEENT-head atraumatic and normocephalic, pupils equal and reactive to light, extraocular muscles intact Neck-no lymphadenopathy or thyromegaly, trachea midline Chest-bibasilar inspiratory rales. No wheezing. No rhonchi. Cardiac-regular rate and rhythm, normal S1 and S2. Grade 2/6 systolic murmur at the left sternal border Abdomen-normal bowel sounds, no hepatosplenomegaly Extremities- 2+ edema bilateral lower extremities below the knees. Chronic venous stasis changes Neuro-cranial nerves II through XII intact, motor and sensory function within normal limits, strength symmetrical, no focal deficits Psych-flat affect Results & Data Results & Data Vital Signs (Past 12 Hours) Vital Signs Temp Pulse Pulse Resp BP BP Pulse Ox 03/17/24 11:40 36.6 C 69 16 91/58 L 96 03/17/24 09:35 71 104/64 03/17/24 07:49 78 102/66 03/17/24 07:24 03/17/24 07:18 36.3 C L 70 14 92/58 L 93 O2 Del Method 03/17/24 11:40 Room Air 03/17/24 09:35 03/17/24 07:49 03/17/24 07:24 Room Air 03/17/24 07:18 Room Air Laboratory Results 03/15/24 07:29 03/17/24 07:34 PG Care Time/CCT Total # of Minutes Spent Total Time Spent with Patient: Total time spent is greater than 50% in coordination of care (as documented) at patient's floor/unit and/or counseling patient: Coding Level of Care Code 69331 SUB INP/OBS CARE 3/50MIN Diagnoses Congestive heart failure I50.9 H/O mechanical aortic valve replacement Z95.2 Acute blood loss anemia D62 Hyponatremia E87.1 Chronic lower back pain M54.50; G89.29 Acute kidney injury N17.9 Hypokalemia E87.6 Atrial flutter I48.92
--- NOTE | 2024-03-17 18:35 | Palliative Care Progress Note ---
Date of Service March 17, 2024 Assessment & Plan (1) Generalized pain: Plan: Continue TDF 37mcg q3days No change to prn Dilaudid (2) Suffering: Plan: Ongoing psychosocial support and logotherapy provided (3) Leg pain, bilateral: (4) Pain, upper back: (5) Anxiety: Plan: Ativan prn (6) Weakness generalized: Plan: Asking for walks, staff will try to assist with ambulation through the day, PT reconsulted (7) Denial as mental defense mechanism: (8) Advanced care planning/counseling discussion: Plan: Dilma and I spoke throughout the day on multiple occasions for a total of 45 minutes. She had requested a family meeting with her brother for today at 12 PM. Earlier this morning she wanted to try to do it at 10 AM but he did not answer his phone. Initially he had plan to be here in person however she reports that when speaking with him yesterday he advised her he would prefer a phone call. When I returned to 12 that she requested, he was not able to be reached. When I returned again at 1 PM she advised me that she had gotten into an argument with him, he was in a bad mood, and he refused to engage in any type of meeting or discussion. She was both tearful and frustrated this afternoon. We spent some time discussing her goals which remain to find an apartment of her own to live in. She states that she told care management to stop looking for personal care homes however, she has not been able to visit any of the apartment she has been interested in and therefore has not been able to formalize any sort of release. She asks why she cannot be discharged to "a heart failure house of care." Advised that these are not the type of specialized facilities that exist although it would be possible potentially to go to a personal care type facility where there would be nurses and care partners who could assist with her care and she could continue seeing her [place] cardiology, nephrology and functional medicine teams for ongoing care. She continues to express interest in finding a home to be discharged to that [place] as possible to [place] so that her total transit time to [facility] is minimal. (9) Palliative care by specialist: Plan As above Personal care placement attempts underway I spent 85 minutes overall addressing this case: 5 min in medical data review/discussion with referring provider(s) and/or preparation for the visit 15 min in direct interaction with the patient/exam 45 min in Advance Care Planning/Goals of Care discussions as detailed above in note (must be >16min) 5 min in subsequent review and synthesis of assessment and plan 15 min communicating with other providers regarding the patient's case: primary team, nursing, care management Thank you for allowing us to participate in the ongoing care of this patient. Please page with any additional concerns. Zane Crews DNP Director, Palliative Medicine Admission and Anticipated Discharge Date Admission Date: February 26, 2024 Subjective Dilma is seen while she is seated at the edge of the bed this morning. She reports the pain is overall "not that great but I guess it is what it is." Continues to order her meals through [employer]. No nausea, vomiting or diarrhea. Occasional urinary incontinence. Daily bowel movements reported. Voiding without issue and continues on a Lasix infusion. States that she continues to search for an apartment. Also tells me she has been contemplating living with her brother and has been looking into home health options that can be given while she is there. She also states she has not actually discussed this with her brother but wanted to have all the information from the home health perspective before asking him if this would work. Review of Systems Review of Systems: All systems reviewed & are unremarkable except as noted in Subjective Physical Exam Physical Exam: Chronically ill-appearing female, seated at edge of the bed, labile mood Mild bitemporal wasting. kyphotic, + limited ROM PERRLA, EOMI's. Neck is supple and without stridor, no gross JVD noted Respiratory effort normal.Lungs diminished/clear. +mild conversational dyspnea with prolonged discussion. Intermittent dry cough S1-S2, + murmur, harsh; no JVD Abdomen soft, distended, bowel sounds present; +umbilical hernia protruding/small/non tender +adult diaper in place Bilateral lower extremities with severe erythematous edema +3 to +4, pitting, up to the mid thigh. Vascular insufficiency changes to the lower extremities are noted. +palmar ronak laceous changes c/w vascular insuff, sl dusky nailbeds Awake alert and oriented x 3. + Tangential, +wishful thinking, +perseveration, easily distracted Skin is pale, warm; scattered ecchymoses, +skin tears with intact dressings Results & Data Vital Signs (Past 12 Hours) Vital Signs Temp Pulse Pulse Resp BP BP Pulse Ox 03/17/24 14:44 36.3 C L 70 14 111/63 95 03/17/24 11:40 36.6 C 69 16 91/58 L 96 03/17/24 09:35 71 104/64 03/17/24 07:49 78 102/66 03/17/24 07:24 03/17/24 07:18 36.3 C L 70 14 92/58 L 93 O2 Del Method 03/17/24 14:44 Room Air 03/17/24 11:40 Room Air 03/17/24 09:35 03/17/24 07:49 03/17/24 07:24 Room Air 03/17/24 07:18 Room Air Laboratory Results Most recent lab results Calcium 9.0 mg/dl (8.6-10.3) 03/17/24 07:34 Phosphorus 4.4 mg/dl (2.5-4.9) 02/26/24 00:16 Magnesium 2.3 mg/dl (1.7-2.4) 03/15/24 07:29 Diagnostic Findings Abdomen/Pelvis CT 02/26/24 13:01 CT abd pelvis wo con CLINICAL HISTORY: abd distension TECHNIQUE: Helical axial images of the abdomen and pelvis were obtained. Automated dose lowering techniques and/or adjustment according to patient size were utilized for this exam. This exam was performed without intravenous contrast. CT DOSE: 810.54 mGy.cm COMPARISON: Comparison is made to CT abdomen pelvis 01/22/2023 FINDINGS: Lower chest: Bibasilar atelectasis versus scarring is seen. Liver: Mild hepatomegaly is seen. Gallbladder and biliary tree: Cholelithiasis is seen without evidence of cholecystitis. No intra- or extrahepatic biliary ductal dilation. Pancreas: Unremarkable, no focal lesions. Spleen: Unremarkable. Adrenals: Unremarkable. Kidneys and ureters: Unremarkable. Bladder: Unremarkable. Reproductive organs: Unremarkable. Bowel: Diverticulosis is seen without evidence of diverticulitis. Lymph nodes Retroperitoneal: Subcentimeter lymph nodes are noted. Pelvic: Unremarkable. Mesenteric: Unremarkable. Peritoneum: Mild ascites is seen. Vessels: Unremarkable. Abdominal wall: A fat-containing umbilical hernia is seen. Prominent intramuscul ar hematoma is seen in the left iliopsoas measuring up to 8.3 x 5.5 cm. Bones: Mild degenerative changes are seen. IMPRESSION: Intramuscular hematoma in the left iliopsoas. Stable mild ascites, similar to prior exam. ACT 112: Negative or not required by law. Electronically signed by: Anthony Poe M.D. 02/26/2024 3:22 PM Venous Doppler Study 02/27/24 18:37 Exam(s): US VENOUS BILATERAL LOWER EXTREMITIES EXAM: US Duplex Bilateral Lower Extremities Veins CLINICAL HISTORY: Pain in legs, off anticoagulants. TECHNIQUE: Real-time duplex ultrasound scan of the bilateral lower extremity veins integrating B-mode two-dimensional vascular structure, Doppler spectral analysis, color flow Doppler imaging and compression. COMPARISON: No relevant prior studies available. FINDINGS: Right deep veins: Unremarkable. No DVT in the right common femoral, femoral, proximal deep femoral or popliteal veins. The veins demonstrate normal color flow, are normally compressible, with normal phasic flow and/or augmentation response. The interrogated calf veins are patent. Right superficial veins: Unremarkable. No thrombus in the saphenofemoral junction. Left deep veins: Unremarkable. No DVT in the left common femoral, femoral, proximal deep femoral or popliteal veins. The veins demonstrate normal color flow, are normally compressible, with normal phasic flow and/or augmentation response. The interrogated calf veins are patent. Left superficial veins: Unremarkable. No thrombus in the saphenofemoral junction. Soft tissues: Subcutaneous edema noted from the mid thighs distally involving both lower extremities. No loculated fluid collections. No popliteal cyst. IMPRESSION: No evidence for deep vein thrombosis involving the bilateral lower extremities. Bilateral subcutaneous edema noted. Electronically signed by: Aneudy Newton MD 02/28/24 00:41 AM Abdomen Ultrasound 03/05/24 15:41 US abdomen ltd ascites HISTORY: 64 years-old Female ascites follow-up study in a patient with ascites COMPARISON: 02/26/2024 TECHNIQUE: Multiple real-time sonographic images of the abdominal structures were obtained assessing grayscale appearance FINDINGS: Cholelithiasis redemonstrated. Trace abdominal pelvic ascites. IMPRESSION: 1. Trace abdominal pelvic ascites is unchanged from prior. 2. Cholelithiasis. ACT 112: Negative or not required by law. The above report was generated using voice recognition software. It may contain grammatical, syntax or spelling errors. Electronically signed by: Festus Blake M.D. 03/05/2024 4:48 PM Chest X-Ray 03/16/24 08:46 SINGLE VIEW CHEST CLINICAL HISTORY: Congestive heart failure. FINDINGS: An AP, portable, upright chest radiograph is compared to study dated 08/07/2022 and correlated with chest CT dated 02/16/2023. An electronic device projects over the left lower chest. The patient is status post midline sternotomy and cardiac valve surgery. Epicardial leads are in place. The heart is enlarged and atherosclerotic calcification of the thoracic ureter. There is evidence of congestive failure with pulmonary edema. Small pleural effusions are suspected. Atelectasis is noted at the lung bases. No pneumothorax is seen. The skeletal structures are osteopenic. There is chronic deformity of the right proximal humerus. IMPRESSION: 1. Cardiomegaly with evidence of congestive failure and pulmonary edema. 2. Small pleural effusions are suspected. ACT 112: Negative or not required by law. Electronically signed by: Felice Galarza M.D. 03/16/2024 10:04 AM PG Care Time/CCT Total # of Minutes Spent Total Time Spent with Patient: Total time spent is greater than 50% in coordination of care (as documented) at patient's floor/unit and/or counseling patient: Advanced Care Planning 83863 Advanced Care Planning 30 Min 78804 Advanced Care Planning Additional 30 Min [place] [address] SUB INP/OBS CARE 2/35MIN (25 - SIGNIFICANT, SEPARATELY IDENTIFIABLE ) Patient Type Established Medical Decision Making High Complexity Diagnoses Generalized pain R52 Suffering Leg pain, bilateral M79.604; M79.605 Pain, upper back M54.9 Anxiety F41.9 Weakness generalized R53.1 Denial as mental defense mechanism R45.89 Advanced care planning/counseling discussion Z71.89 Palliative care by specialist Z51.5 Additional Codes Advanced Care Planning - 82010 Advanced Care Planning 30 Min: 54082 Advanced Care Planning 30 Min ([id number]) Advanced Care Planning - 29246 Advanced Care Planning Additional 30 Min: 22989 Advanced Care Planning Additional 30 Min ([id number])
[2024-03-18] MEDS ORDERED: Nursing to Pharmacy Communication SCH (02:15)
[2024-03-18 07:14] LABS: INR 2.3 (0.9-1.1); Prothrombin Time 23.3 Seconds (9.0-12.0)
[2024-03-18 07:25] LABS: BUN Creatinine Ratio 62.2 (10-20); Calcium 9.3 mg/dl (8.6-10.3); Creatinine Clr Calc Pharmacy 32.9 ml/min; Est GFR (African American) 38.2 ml/min; Est GFR (Non-African American) 32.9 ml/min; Potassium 2.6 mmol/L (3.5-5.1)
--- NOTE | 2024-03-18 15:36 | Hospitalist Progress Note ---
Date of Service March 18, 2024 Assessment & Plan (1) Congestive heart failure: Plan: Acute on chronic HFpEF. (prior baseline weight ~140lb) 168lb on admission. Previously on high-dose torsemide then switched to intravenous Bumex with little effect. Lasix infusion increased from 20 mg/h to 40 mg/h today, March 17. She is also on metolazone daily. Portable chest x-ray today on March 16 revealed cardiomegaly with evidence of CHF. Fortunately, she is on room air. Hold lasix today due to soft BP, start midodrine (2) H/O mechanical aortic valve replacement: Plan: History of rheumatic heart disease. She has a White-Carlton mitral valve in place and a mechanical aortic valve in place. She also underwent tricuspid valve annuloplasty. Chronic Coumadin therapy. INR 2.0 today, March 17. Will follow (3) Acute blood loss anemia: Plan: Hemoglobin is in the 8-9 range and currently stable. Unfortunately she requires chronic systemic anticoagulation due to presence of mechanical heart valves. Serial labs On Warfarin (4) Hyponatremia: Plan: Mild. Serial labs. Asymptomatic (5) Chronic lower back pain: Plan: Managed by palliative care. Currently on fentanyl patch and using intravenous Dilaudid as needed. (6) Acute kidney injury: Plan: Acute on chronic kidney disease stage III. Creatinine has stabilized around 2.0. Monitor intake and output. Serial labs (7) Hypokalemia: Plan: Replete and repeat levels (8) Atrial flutter: Plan: Pt with history of afib/flutter. History of complete heart block with permanent pacemaker insertion in September 2018. Telemetry. Plan DNR/DNI status. Previously on comfort care however patient has insisted that she wants to get her medicines, including Coumadin and diuretic therapy. Placement pending. Admission and Anticipated Discharge Date Admission Date: February 26, 2024 Subjective soft BP but not lightheaded, says breathing OK, tolerating PO but poor appetite Physical Exam Physical Exam: Ill appearing Lungs clear to auscultation bilaterally Heart RRR PA Soft, NT, ND, BS+ Skin no rash Results & Data Results & Data Vital Signs (Past 12 Hours) Vital Signs Temp Pulse Pulse Resp BP Pulse Ox O2 Del Method 03/18/24 15:27 36.9 C 69 16 106/69 100 Room Air 03/18/24 12:00 38.1 C H 78 14 92/56 L 97 Nasal Cannula 03/18/24 12:00 38.1 C H 78 14 92/56 L 97 Nasal Cannula 03/18/24 10:57 98/61 L 03/18/24 08:50 59 L 03/18/24 07:49 36.8 C 75 16 96/61 L 95 Room Air 03/18/24 07:45 Nasal Cannula O2 Flow Rate 03/18/24 15:27 03/18/24 12:00 3 03/18/24 12:00 3 03/18/24 10:57 03/18/24 08:50 03/18/24 07:49 03/18/24 07:45 3 Coding Level of Care Code 02539 SUB INP/OBS CARE 2/35MIN Diagnoses Congestive heart failure I50.9 H/O mechanical aortic valve replacement Z95.2 Acute blood loss anemia D62 Hyponatremia E87.1 Chronic lower back pain M54.50; G89.29 Acute kidney injury N17.9 Hypokalemia E87.6 Atrial flutter I48.92
[2024-03-18] MEDS: POTASSIUM CHLORIDE CRTAB 20 MEQ TABCR PO STA (16:47)
[2024-03-18] MEDS: MIDODRINE HCL 2.5 MG TAB PO SCH (16:58)
--- NOTE | 2024-03-19 01:49 | Communication Note ---
Date of Service: March 19, 2024 Alerted by nursing due to concerns for increasing confusion. Originally, the pt was increasingly confused and urinating more frequently with foul smelling urine per nursing. Urine culture was ordered. Nursing again reached out as pt had become increasingly confused and unable to hold a conversation. Pt also has a new oxygen requirement of 3L NC. Pt was then seen at bedside. Pt was conversant and able to respond to her name. She told me she "didn't want to be here anymore." When asked where she was, she told me [facility]. She denied trouble breathing. She endorses chronic pain in her back and shoulders. Otherwise, no concerns voiced from pt. On exam, heart RRR w/o murmur with 2+ bilateral LE edema, and lungs CTA (however, exam extremely limited by pt unable to roll/sit up). AM labs were drawn early which revealed no acute concerns. Anemia stable. Hypokalemia improved. Cr stable. A CXR was ordered which revealed worsening pulmonary edema compared to prior (03/16) per my read. Of note, pt's last dose of lasix was 03/18 ~8AM which has been held since d/t hypotension. She also did not receive her metolazone 03/18 because of this. Pt upgraded to med/tele. Pt re-evaluated after her upgrade- her BPs still remain low but asymptomatic. Pt tells me this "is wear Dilma runs" in terms of her BP. She is upset that we are concerned about her BPs as they are always low for her and she has never had issues before. I attempted to explain to the pt that giving her medication to remove fluid from her body may decrease her BP more but she remains adamant that it would not affect her this way and that this is how she normally is. I do think pt is fluid overloaded based on CXR and new oxygen requirement- will give 20mg of IV lasix with close monitoring of her BP. No recent echo to review- ordered for AM. 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 Recommend continued conversations concerning goals of care and expected progression of illness- based on conversations held over the night, pt does not appear to have capacity to make decisions concerning her medical care; however, it is likely that a large contributing factor to pt's current confusion is hospital-acquired delirium. Largest concern overnight remains for the ability of diuresing her effectively while maintaining an adequate perfusing pressure. Based on prior notes, it appears pt's ultimate goal is to leave the hospital and find some place for her to live. Clarification concerning what types of measures pt would and would not want remain paramount in providing the best care for her (ie; vasopressors if needed, value comfort in terms of breathing (more diuresis) over adequate perfusion (blood pressure), etc). Resident Activity Tracking Resident Involvement: Resident Care Provided Care Provided: Adult Hospital Medicine
[2024-03-19 02:32] LABS: Hematocrit (blood only) 26.7 % (37.0-47.0); Hemoglobin 8.4 g/dl (12.0-16.0); Mean Corpuscular Hemoglobin 32.2 pg (25.0-34.0); Mean Corpuscular Hgb Conc 31.5 g/dL (32.0-36.0); Mean Corpuscular Volume 102.3 fL (80.0-100.0); Mean Platelet Volume 9.2 fL (9.4-12.4); Platelet Count 257 K/uL (130-400); RDW Coefficient of Variation 18.9 % (11.5-14.5); RDW Standard Deviation 71.5 fL (36.4-46.3); Red Blood Count 2.61 M/uL (4.20-5.40); White Blood Count 7.41 K/ul (4.8-10.8)
[2024-03-19 02:45] LABS: BUN Creatinine Ratio 60.6 (10-20); Calcium 8.9 mg/dl (8.6-10.3); Creatinine Clr Calc Pharmacy 31.7 ml/min; Est GFR (African American) 36.6 ml/min; Est GFR (Non-African American) 31.5 ml/min; Magnesium 1.9 mg/dl (1.7-2.4); Potassium 3.5 mmol/L (3.5-5.1)
[2024-03-19 02:49] LABS: INR 2.8 (0.9-1.1); Prothrombin Time 27.3 Seconds (9.0-12.0)
[2024-03-19] MEDS: FUROSEMIDE INJ 20 MG/2 ML VIAL IV ONE (05:59)
--- NOTE | 2024-03-19 07:21 | XRay Report ---
XR chest 1V portable CLINICAL HISTORY: new O2 requirement COMPARISON STUDY: Chest CT February 16, 2023. Chest radiograph March 16, 2024. FINDINGS: Median sternotomy wires and prosthetic aortic valve. Cardiomegaly is again noted. Pulmonary edema persists. Small right pleural effusion is again noted. There is no pneumothorax. Linear bibasi lar densities favor atelectasis. There are also linear densities within the left midlung. No definite consolidation to suggest pneumonia. IMPRESSION: 1. Cardiomegaly with pulmonary edema, similar to prior exam. 2. Small right pleural effusion. ACT 112: Negative or not required by law. Electronically signed by: Campos Mora M.D. 03/19/2024 7:20 AM
[2024-03-19] MEDS ORDERED: FUROSEMIDE 100 MG in 0.9 % SODIUM CHLORIDE 90 ML IV SCH (09:45)
[2024-03-19] MEDS: MIDODRINE HCL 2.5 MG TAB PO ONE (10:29)
[2024-03-19] MEDS ORDERED: SODIUM CHLORIDE 0.65% NA SOLN 45 ML (OCEAN) PRN (11:57)
[2024-03-19] MEDS: MIDODRINE HCL 10 MG TAB PO SCH (12:25)
[2024-03-19] MEDS: PHENYLEPHRINE HCL 0.5% NA SPRAY 15 ML BTL ONE (13:07)
--- NOTE | 2024-03-19 15:21 | Hospitalist Progress Note ---
Date of Service March 19, 2024 Assessment & Plan (1) Congestive heart failure: Plan: Acute on chronic HFpEF. (prior baseline weight ~140lb) 168lb on admission. Previously on high-dose torsemide then switched to intravenous Bumex with little effect. Lasix infusion increased from 20 mg/h to 40 mg/h today, March 17. She is also on metolazone daily. Portable chest x-ray today on March 16 revealed cardiomegaly with evidence of CHF. Fortunately, she is on room air. lasix gtt as tolerated by BP, started midodrine - increased dose (2) H/O mechanical aortic valve replacement: Plan: History of rheumatic heart disease. She has a White-Carlton mitral valve in place and a mechanical aortic valve in place. She also underwent tricuspid valve annuloplasty. Chronic Coumadin therapy. INR 2.8 today, Monitor (3) Acute blood loss anemia: Plan: Hemoglobin is in the 8-9 range and currently stable. Unfortunately she requires chronic systemic anticoagulation due to presence of mechanical heart valves. Serial labs On Warfarin Epistaxis Saline nasal spray / phenylephrine PRN for epistaxis (4) Hyponatremia: Plan: Mild. Serial labs. Asymptomatic (5) Chronic lower back pain: Plan: Managed by palliative care. Currently on fentanyl patch and using intravenous Dilaudid as needed. (6) Acute kidney injury: Plan: Acute on chronic kidney disease stage III. Creatinine has stabilized around 2.0. Monitor intake and output. Serial labs (7) Hypokalemia: Plan: Replete and repeat levels (8) Atrial flutter: Plan: Pt with history of afib/flutter. History of complete heart block with permanent pacemaker insertion in September 2018. Telemetry. Plan DNR/DNI status. Previously on comfort care however patient has insisted that she wants to get her medicines, including Coumadin and diuretic therapy. Placement pending. Admission and Anticipated Discharge Date Admission Date: February 26, 2024 Subjective says feels alright, no SOB at rest, no dizziness with soft BP, tolerating PO but poor appetite, RN reports intermittent epistaxis Physical Exam Physical Exam: Ill appearing, appears fatigued Lungs clear to auscultation bilaterally Heart RRR PA Soft, NT, ND, BS+ Skin no rash Results & Data Results & Data Vital Signs (Past 12 Hours) Vital Signs Temp Pulse Pulse Resp BP BP Pulse Ox 03/19/24 11:30 37.1 C 70 17 81/47 L 95 03/19/24 10:37 36.7 C 70 16 93/57 L 92 03/19/24 06:36 36.7 C 70 18 94/59 L 92 03/19/24 05:45 59 L 90/42 L 03/19/24 03:53 36.4 C L 70 18 95/54 L 99 03/19/24 03:41 O2 Del Method O2 Flow Rate 03/19/24 11:30 Room Air 03/19/24 10:37 Room Air 03/19/24 06:36 Room Air 03/19/24 05:45 03/19/24 03:53 Nasal Cannula 3 03/19/24 03:41 Nasal Cannula 3 PG Care Time/CCT Total # of Minutes Spent Total Time Spent with Patient: Total time spent is greater than 50% in coordination of care (as documented) at patient's floor/unit and/or counseling patient: Coding Level of Care Code 81829 SUB INP/OBS CARE 2/35MIN Diagnoses Congestive heart failure I50.9 H/O mechanical aortic valve replacement Z95.2 Acute blood loss anemia D62 Hyponatremia E87.1 Chronic lower back pain M54.50; G89.29 Acute kidney injury N17.9 Hypokalemia E87.6 Atrial flutter I48.92
[2024-03-20 06:40] LABS: Hematocrit (blood only) 24.8 % (37.0-47.0); Mean Corpuscular Hemoglobin 32.3 pg (25.0-34.0); Mean Corpuscular Hgb Conc 32.3 g/dL (32.0-36.0); Mean Platelet Volume 9.5 fL (9.4-12.4); Platelet Count 253 K/uL (130-400); RDW Coefficient of Variation 18.7 % (11.5-14.5); RDW Standard Deviation 68.5 fL (36.4-46.3); Red Blood Count 2.48 M/uL (4.20-5.40); White Blood Count 5.04 K/ul (4.8-10.8)
--- NOTE | 2024-03-20 18:26 | Hospitalist Progress Note ---
Date of Service March 20, 2024 Assessment & Plan (1) Congestive heart failure: Plan: Acute on chronic HFpEF. (prior baseline weight ~140lb) 168lb on admission and now down to 150. Previously on high-dose torsemide then switched to intravenous Bumex with little effect. Lasix infusion started and was titrated up to 40 mg/h and she was also on metolazone daily. This was held for the last couple of days due to hypotension Portable chest x-ray on March 16 revealed cardiomegaly with evidence of CHF. Fortunately, she is on room air although was briefly hypoxic on the evening of 03/19 which responded to IV Lasix For soft blood pressures, started midodrine 10 Mg p.o. 3 times daily Resume diuretics in the form of Bumex 2 Mg p.o. twice daily and metolazone 2.5 Mg p.o. once daily 30 minutes before Bumex in the morning Continue Toprol XL although she has not been able to receive it due to soft blood pressures Her blood pressure and renal function also cannot tolerate Entresto, spironolactone, or SGLT2 Continue potassium chloride but reduce dose to 40 mEq p.o. once daily Follow BMP and magnesium level in the morning The patient has gone back and forth between going on comfort measures/palliative measures versus continuing regular care but she is agreeable on a POLST form do not escalate care to include pressors, she is a DNR/DNI-appreciate palliative medicine consultation (2) H/O mechanical aortic valve replacement: Plan: History of rheumatic heart disease. She has a White-Carlton mitral valve in place and a mechanical aortic valve in place. She also underwent tricuspid valve annuloplasty. Her Coumadin therapy was on hold for quite some time due to numerous bleeds including GI bleeds and retroperitoneal bleeds Hemoglobin remains fairly stable at 8.0 She is requested to go back on chronic Coumadin therapy. INR remains therapeutic Continue Coumadin follow INR She follows at the [facility] (3) Acute blood loss anemia: Plan: Hemoglobin is in the 8-9 range and currently stable. Unfortunately she requires chronic systemic anticoagulation due to presence of mechanical heart valves. Serial labs On Warfarin, monitor for bleeding Epistaxis Saline nasal spray / phenylephrine PRN for epistaxis (4) Hyponatremia: Plan: Mild. Serial labs. Asymptomatic (5) Chronic lower back pain: Plan: Neck and back pain-managed by palliative care. Currently on fentanyl patch titrated up to 37 mcg and using intravenous Dilaudid as needed. Continue Robaxin 3 times daily (6) Acute kidney injury: Plan: Acute on chronic kidney disease stage III. Creatinine has stabilized around 1.7-2.0. Monitor intake and output. Serial labs (7) Atrial flutter: Plan: Pt with history of afib/flutter. History of complete heart block with permanent pacemaker insertion in September 2018. Telemetry. Continue Coumadin, metoprolol Plan DNR/DNI status. Previously on comfort care however patient has insisted that she wants to get her medicines, including Coumadin and diuretic therapy. Patient has refused to go to [facility] facility or personal-long-term. She is only interested in pursuing independent living but yet has not been able to make these arrangements nor does she have transportation. She would like to move to the [facility] but does not have the ability to do so. It is a conundrum. She has estranged from several of her family members but will allow us to speak to her brother at this time who apparently cannot handle her coming to live with him due to stairs in his facility Admission and Anticipated Discharge Date Admission Date: February 26, 2024 Subjective Patient denies chest pains or shortness of breath, not lightheaded. She has had soft blood pressures at times in the 80s systolic but she does not have any symptoms associated with it. She was confused overnight and was requiring 3 L nasal cannula after having some hypoxia. She was given IV Lasix and had improvement, was weaned off oxygen today She is still insisting that she will be finding her own apartment but she has not been able to get 1 because she cannot leave the hospital to go look at them near [place]. Telemetry with paced rhythm in the 70s Physical Exam Constitutional: WD/WN, vitals as above Respiratory: normal respiratory effort; no cough Auscultation: + crackles (Bibasilar); no rhonchi and no wheezes Cardiovascular: Rate/Rhythm: regular rate and regular rhythm Heart Sounds: + murmur Extremities: + edema (2+ pitting edema to the abdomen and bilateral lower extremities) Psychiatric: A+Ox3, euthymic affect Results & Data Results & Data Vital Signs (Past 12 Hours) Vital Signs Temp Pulse Pulse Pulse Pulse Resp BP 03/20/24 16:34 03/20/24 16:32 36.5 C 72 16 03/20/24 14:50 73 03/20/24 11:30 36.3 C L 70 16 03/20/24 07:25 03/20/24 07:21 36.7 C 73 16 86/48 L 03/20/24 07:13 70 BP Pulse Ox O2 Del Method 03/20/24 16:34 105/63 03/20/24 16:32 112/68 93 Room Air 03/20/24 14:50 03/20/24 11:30 85/45 L 94 Room Air 03/20/24 07:25 Room Air 03/20/24 07:21 94 Room Air 03/20/24 07:13 Laboratory Results CBC, magnesium reviewed PG Care Time/CCT Total # of Minutes Spent Total Time Spent with Patient: Total time spent is greater than 50% in coordination of care (as documented) at patient's floor/unit and/or counseling patient: Coding Level of Care Code 92865 SUB INP/OBS CARE 2/35MIN Diagnoses Congestive heart failure I50.9 H/O mechanical aortic valve replacement Z95.2 Acute blood loss anemia D62 Hyponatremia E87.1 Chronic lower back pain M54.50; G89.29 Acute kidney injury N17.9 Atrial flutter I48.92
[2024-03-20] MEDS: BUMETANIDE 1 MG TAB PO SCH (20:29)
[2024-03-20] MEDS: HYDROmorphone INJ 1 MG/ML SYRINGE IV PRN (21:26)
[2024-03-21 06:23] LABS: Hematocrit (blood only) 27.1 % (37.0-47.0); Hemoglobin 8.5 g/dl (12.0-16.0); Mean Corpuscular Hemoglobin 31.5 pg (25.0-34.0); Mean Corpuscular Hgb Conc 31.4 g/dL (32.0-36.0); Mean Corpuscular Volume 100.4 fL (80.0-100.0); Mean Platelet Volume 9.6 fL (9.4-12.4); Platelet Count 278 K/uL (130-400); RDW Coefficient of Variation 18.4 % (11.5-14.5); RDW Standard Deviation 67.8 fL (36.4-46.3); White Blood Count 5.45 K/ul (4.8-10.8)
[2024-03-21 06:35] LABS: Calcium 9.2 mg/dl (8.6-10.3); Creatinine Clr Calc Pharmacy 32.5 ml/min; Est GFR (African American) 37.6 ml/min; Est GFR (Non-African American) 32.5 ml/min; Magnesium 1.8 mg/dl (1.7-2.4); Potassium 3.6 mmol/L (3.5-5.1)
[2024-03-21 06:53] LABS: Prothrombin Time 58.7 Seconds (9.0-12.0)
[2024-03-21 07:04] LABS: INR 6.4 (0.9-1.1)
[2024-03-21] MEDS: metOLazone 2.5 MG TABLET PO SCH (08:38)
[2024-03-21] MEDS: POTASSIUM CHLORIDE 10 MEQ TABCR PO SCH (08:38)
--- NOTE | 2024-03-21 08:59 | Palliative Family Discussion ---
Date of Service March 21, 2024 Patient Directed Conference Time of Meetina- Participants: Hope Crews DNP Patient participation: yes Patient Support System: none Other Healthcare Provider Participation: None Meeting Location: bedside Advanced Directive available: yes If yes, descriptors: DNR/DNI, POLST completed The patient's surrogate medical decision maker participated: no, she declined to include SDM An ACP meeting was held for DILMA FRAGA. This meeting was necessary for det ermining the appropriate course of treatment. Topics of Discussion Topics of Discussion: 1. Dilma states she plans "to leave tomorrow no matter what so you guys have till them to figure it out bc I have to go see this apartment and sign my lease." We spoke about the concern of leaving AMA when she has such advanced HF. She states if she gets sick while there she can be taken to [place], then adds "you people haven't done anything right, you havent tried to help in any way and you are keeping me stuck here." She perceives "it's only [place] that knows what theyre doing." Dilma and I further explored these concerns. When asked how she feels no one has helped, she identified that no one helped find her a place to go. I noted she left her initial SNF AMA and took an Uber to son's house where he called 911 to bring her here, our care mgt team found several options but she refused them all and most recently told care mgt to stop looking and declined other solutions they had found. She also insisted on restarting prior meds which had caused complications which are now starting to recur such as low BP etc and diuretics are on hold. She also perceives the addition of midodrine is our effort to "keep her sick and stuck here." She eprceives we "keep her stuck in this bed all the time." We spent some time clarifying the purpose of the drug and the issues preventing diuretic administration as well as how progressive/advanced HF becomes diuretic resistant, as evidenced by how her BLE edema has not improved despite escalating doses and lasix infusion. I offered the option of asking PT to help her get OOB to chair and will see how BP does. Plan to reassess in morning. Declined my offer to update anyone she wanted in her family and stated they are all useless. Other Content of Meetin. Opportunity given for participants to speak and ask questions. 2. Participants were assured of attention to patient comfort. 3. Reassurance provided. 4. Support was provided for informed, good-jose de jesus decisions. 5. Emotions expressed by family were acknowledged and addressed. 6. She plans to take an [employer] car service from here to the apartment she wants to look at, if she likes it then sign a lease and move in. She has no clear plan for what she would do in the interim between signing the lease and moving in, but states she would find a penitentiary to stay in. She adds she is also searching for a new job and will "figure it out" once she is out of the hospital. She perceives everything will significantly improve if she can resume care with [place] providers but notes she wants a new ip paralegal because of how she was treated during the last 61 day admission there and she feels they were "off the robert" telling her "you are terminally ill and have about days to live." 7. Plan of Care: ongoing TS 75min, 60 min face to face ACP as noted above MDM High Thank you for allowing us to participate in the ongoing care of this patient. Please page with any additional concerns. Zane Crews DNP Director, Palliative Medicine
--- NOTE | 2024-03-21 17:43 | Hospitalist Progress Note ---
Date of Service March 21, 2024 Assessment & Plan (1) Congestive heart failure: Plan: Acute on chronic HFpEF. (prior baseline weight ~140lb) 168lb on admission and now down to 150. Previously on high-dose torsemide with Will effect then switched to intravenous Bumex with little effect. Lasix infusion started and was titrated up to 40 mg/h and she was also on metolazone daily. This did seem to help and now has been discontinued due to hypotension Portable chest x-ray on March 16 revealed cardiomegaly with evidence of CHF. Fortunately, she is on room air although was briefly hypoxic on the evening of 03/19 which responded to IV Lasix For soft blood pressures, started midodrine 10 Mg p.o. 3 times daily Resumed diuretics in the form of Bumex 2 Mg p.o. twice daily and metolazone 2.5 Mg p.o. once daily 30 minutes before Bumex in the morning Continue Toprol XL although she has not been able to receive it due to soft blood pressures-lower dose to 12.5 Mg daily and change hold parameters to be given as long as SBP greater than 95 Her blood pressure and renal function also cannot tolerate Entresto, spironolactone, or SGLT2 Continue potassium chloride 40 mEq p.o. once daily Follow BMP and magnesium level in the morning The patient has gone back and forth between going on comfort measures/palliative measures versus continuing regular care but she is agreeable on a POLST form do not escalate care to include pressors, she is a DNR/DNI-appreciate palliative medicine consultation (2) H/O mechanical aortic valve replacement: Plan: History of rheumatic heart disease, chronic HFpEF with restrictive cardiomyopathy. She has a White-Carlton mitral valve in place and a mechanical mitral as well as aortic valve in place. She also underwent tricuspid valve repair and then had severe TR s/p redo mitral valve and tricuspid valve plus maze and PPM. Since then she has had refractory heart failure and is not a candidate for advanced therapies as per [facility]. She is not a c andidate for heart transplant given her severe pulmonary hypertension and elevated PVR and cachexia. She continues to have anasarca and spite of max doses of IV diuretics in the past and here. Her Coumadin therapy was on hold for quite some time due to numerous bleeds including GI bleeds and retroperitoneal bleeds but has now been resumed at the patient's request Hemoglobin remains fairly stable to improved to 8.5 INR now quite elevated at 6.4, no bleeding Hold Coumadin and follow INR She follows at the [facility] (3) Acute blood loss anemia: Plan: Hemoglobin is in the 8-9 range and currently stable. Unfortunately she requires chronic systemic anticoagulation due to presence of mechanical heart valves On Warfarin, monitor for bleeding-none thus far Epistaxis-now resolved Saline nasal spray / phenylephrine PRN for epistaxis (4) Hyponatremia: Plan: Mild, secondary to heart failure/volume overload Follow BMP (5) Chronic lower back pain: Plan: Neck and back pain-managed by palliative care. Currently on fentanyl patch titrated up to 37 mcg and using intravenous Dilaudid as needed. Continue Robaxin 3 times daily Add on cervical soft collar (6) Acute kidney injury: Plan: Acute on chronic kidney disease stage III. Creatinine has stabilized around 1.7-2.0. Monitor intake and output. Serial labs (7) Atrial flutter: Plan: Pt with history of afib/flutter. History of complete heart block with permanent pacemaker insertion in September 2018. Telemetry. Continue Coumadin, metoprolol Plan DNR/DNI status. Previously on comfort care however patient has insisted that she wants to get her medicines, including Coumadin and diuretic therapy. Patient has refused to go to penitentiary facility or personal-senior living. She is only interested in pursuing independent living but yet has not been able to make these arrangements nor does she have transportation. She would like to move to the [facility] but does not have the ability to do so. It is a conundrum. She has estranged from several of her family members but will allow us to speak to her brother at this time who apparently cannot handle her coming to live with him due to stairs in his facility Admission and Anticipated Discharge Date Admission Date: February 26, 2024 Subjective Patient slightly confused and thought it was breakfast time when I was in her room shortly before dinnertime. Denies shortness of breath. She is requesting a neck brace to hold her head up in the place. Otherwise, she is still making phone calls and trying to find an apartment to live in for when she leaves the hospital Nursing reports that she is independently ambulating around the room and to the bathroom at. Telemetry with paced rhythm and PVCs with rates in the 70s Physical Exam Constitutional: WD/WN, vitals as above Respiratory: normal respiratory effort, lungs clear to auscultation normal respiratory effort; no cough Auscultation: lungs clear to auscultation bilaterally Cardiovascular: Rate/Rhythm: regular rate and regular rhythm Heart Sounds: + murmur Extremities: + edema (2+ pitting edema to the abdomen and bilateral lower extremities) Psychiatric: Orientation: alert, oriented to person, oriented to place and cooperative; + not oriented to time Results & Data Results & Data Vital Signs (Past 12 Hours) Vital Signs Temp Pulse Pulse Resp BP Pulse Ox O2 Del Method 03/21/24 15:09 36.6 C 71 20 118/72 91 Room Air 03/21/24 14:26 78 03/21/24 11:24 36.4 C L 76 20 109/70 97 Room Air 03/21/24 07:55 36.5 C 74 20 92/56 L 94 Room Air 03/21/24 07:28 75 Laboratory Results CBC, BMP, magnesium, INR reviewed PG Care Time/CCT Total # of Minutes Spent Total Time Spent with Patient: Total time spent is greater than 50% in coordination of care (as documented) at patient's floor/unit and/or counseling patient: Coding Level of Care Code 64722 SUB INP/OBS CARE 2/35MIN Diagnoses Congestive heart failure I50.9 H/O mechanical aortic valve replacement Z95.2 Acute blood loss anemia D62 Hyponatremia E87.1 Chronic lower back pain M54.50; G89.29 Acute kidney injury N17.9 Atrial flutter I48.92
[2024-03-21] MEDS: MULTIVITAMIN TAB PO SCH (17:44)
[2024-03-22 07:13] LABS: Hemoglobin 8.5 g/dl (12.0-16.0); Mean Corpuscular Hemoglobin 31.8 pg (25.0-34.0); Mean Corpuscular Hgb Conc 31.5 g/dL (32.0-36.0); Mean Corpuscular Volume 101.1 fL (80.0-100.0); Mean Platelet Volume 9.1 fL (9.4-12.4); Platelet Count 246 K/uL (130-400); RDW Coefficient of Variation 18.2 % (11.5-14.5); RDW Standard Deviation 67.4 fL (36.4-46.3); Red Blood Count 2.67 M/uL (4.20-5.40); White Blood Count 4.65 K/ul (4.8-10.8)
[2024-03-22 07:32] LABS: BUN Creatinine Ratio 63.7 (10-20); Calcium 8.9 mg/dl (8.6-10.3); Creatinine Clr Calc Pharmacy 36.9 ml/min; Est GFR (African American) 43.9 ml/min; Est GFR (Non-African American) 37.9 ml/min; Magnesium 1.7 mg/dl (1.7-2.4); Potassium 2.9 mmol/L (3.5-5.1)
[2024-03-22 07:38] LABS: INR 4.7 (0.9-1.1); Prothrombin Time 44.6 Seconds (9.0-12.0)
[2024-03-22] MEDS: POTASSIUM CHLORIDE CRTAB 20 MEQ TABCR PO SCH (08:49)
[2024-03-22] MEDS: METOPROLOL SUCC 25MG EXT REL TAB PO SCH (08:50)
[2024-03-22] MEDS: MAGNESIUM OXIDE 400 MG TAB PO SCH (09:21)
--- NOTE | 2024-03-22 16:08 | Hospitalist Progress Note ---
Date of Service March 22, 2024 Assessment & Plan (1) Congestive heart failure: Plan: Acute on chronic HFpEF. (prior baseline weight ~140lb) 168lb on admission and now down to 153lbs. Previously on high-dose torsemide with minimal effect then switched to intravenous Bumex with little effect. Lasix infusion started and was titrated up to 40 mg/h and she was also on metolazone 5 Mg daily. This did seem to help and now has been discontinued due to hypotension and worsening renal function Portable chest x-ray on March 16 revealed cardiomegaly with evidence of CHF. Fortunately, she is on room air although was briefly hypoxic on the evening of 03/19 which responded to IV Lasix For soft blood pressures, started midodrine 10 Mg p.o. 3 times daily which is helping Resumed diuretics in the form of Bumex 2 Mg p.o. twice daily and metolazone 2.5 Mg p.o. once daily 30 minutes before Bumex in the morning Continue Toprol XL -lowered dose to 12.5 Mg daily Her blood pressure and renal function also cannot tolerate Entresto, spironolactone, or SGLT2 Continue potassium chloride but will increase to 40 mEq p.o. 3 times a day for today and then twice daily for home use Follow BMP and magnesium level in the morning The patient has gone back and forth between going on comfort measures/palliative measures versus continuing regular care but she is agreeable on a POLST form do not escalate care to include pressors, she is a DNR/DNI-appreciate palliative medicine consultation She is now moving back order clerk to [place] and wants to follow-up with her administrative aide there (2) H/O mechanical aortic valve replacement: Plan: History of rheumatic heart disease, chronic HFpEF with restrictive cardiomyopathy. She has a White-Carlton mitral valve in place and a mechanical mitral as well as aortic valve in place. She also underwent tricuspid valve repair and then had severe TR s/p redo mitral valve and tricuspid valve plus maze and PPM. Since then she has had refractory heart failure and is not a candidate for advanced therapies as per [facility]. She is not a candidate for heart transplant given her severe pulmonary hypertension and elevated PVR and cachexia. She continues to have anasarca and spite of max doses of IV diuretics in the past and here. Her Coumadin therapy was on hold for quite some time due to numerous bleeds including GI bleeds and retroperitoneal bleeds but has now been resumed at the patient's request Hemoglobin remains fairly stable to improved to 8.5 and is stable from previous She was placed back on her home dose of Coumadin but now INR is elevated- Coumadin on hold 03/21 and 03/22, INR today down to 4.7 Continue to hold Coumadin and follow INR in the morning She has a home INR testing apparatus at home-goal 2.5-3.5 Once restarts Coumadin, would only do 2 mg daily She follows at the [facility] (3) Acute blood loss anemia: Plan: Hemoglobin is in the 8-9 range and currently stable. Unfortunately she requires chronic systemic anticoagulation due to presence of mechanical heart valves On Warfarin, monitor for bleeding-none thus far Epistaxis-now resolved Saline nasal spray / phenylephrine PRN for epistaxis (4) Hyponatremia: Plan: Mild, secondary to heart failure/volume overload. Sodium is improved at 133 Follow BMP (5) Chronic lower back pain: Plan: Neck and back pain-managed by palliative care. Currently on fentanyl patch titrated up to 37 mcg and using intravenous Dilaudid as needed. Continue Robaxin 3 times daily Add on cervical soft collar which is helping For home use will give oxycodone 5 mg p.o. every 6 hours breakthrough pain (6) Acute kidney injury: Plan: Acute on chronic kidney disease stage III. Creatinine has stabilized around 1 .7-2.0, but is actually improved today to 1.46 and BUN down to 93 Will have to accept worsening renal function and exchange for attempts to keep her comfortable with diuretics (7) Atrial flutter: Plan: Pt with history of afib/flutter. History of complete heart block with permanent pacemaker insertion in September 2018. Telemetry with paced rhythm here Continue Coumadin once INR back order clerk to therapeutic range, continue metoprolol Plan DNR/DNI status. Previously on comfort care however patient has insisted that she wants to get her medicines, including Coumadin and diuretic therapy and continue to get regular care with cardiology Patient has refused to go to [facility] facility or personal-jail. She is only interested in pursuing independent living-she has now found an apartment and plans on moving there on 03/23. Her brother has agreed to pick her up and Rent-[employer]-Car with her to drive her there. Plan to discharge tomorrow Admission and Anticipated Discharge Date Admission Date: February 26, 2024 Anticipated date of discharge: 03/23/24 Subjective Patient reports ongoing pain in her neck. No shortness of breath. No other concerns. She has made arrangements and found an apartment and her brother is renting a car and driving her there tomorrow. Telemetry with paced rhythm in the 70s Physical Exam Constitutional: WD/WN, vitals as above Respiratory: normal respiratory effort, lungs clear to auscultation Cardiovascular: Rate/Rhythm: regular rate and regular rhythm Heart Sounds: + murmur Extremities: + edema (2+ pitting edema to the abdomen and bilateral lower extremities) Psychiatric: A+Ox3, euthymic affect Results & Data Results & Data Vital Signs (Past 12 Hours) Vital Signs Temp Pulse Pulse Resp BP Pulse Ox O2 Del Method 03/22/24 14:00 77 03/22/24 12:00 36.6 C 72 18 112/72 97 Room Air 03/22/24 10:00 65 18 107/69 98 Room Air 03/22/24 08:00 Room Air 03/22/24 07:52 36.6 C 69 18 95/58 L 94 Room Air 03/22/24 07:00 75 Laboratory Results CBC, BMP, INR, magnesium reviewed PG Care Time/CCT Total # of Minutes Spent Total Time Spent with Patient: Total time spent is greater than 50% in coordination of care (as documented) at patient's floor/unit and/or counseling patient: Coding Level of Care Code 09940 SUB INP/OBS CARE 2/35MIN Diagnoses Congestive heart failure I50.9 H/O mechanical aortic valve replacement Z95.2 Acute blood loss anemia D62 Hyponatremia E87.1 Chronic lower back pain M54.50; G89.29 Acute kidney injury N17.9 Atrial flutter I48.92
[2024-03-23] MEDS: oxyCODONE HCL IR 5 MG TAB (IMMEDIATE RELEASE) PO ONE (00:16)
[2024-03-23 05:43] VITALS: O2SAT 94
[2024-03-23 06:31] LABS: Basophils # (auto) 0.05 K/uL (0.00-0.20); Eosinophils # (auto) 0.33 K/uL (0.00-0.50); Eosinophils % (auto) 6.4 %; Hematocrit (blood only) 26.8 % (37.0-47.0); Hemoglobin 8.6 g/dl (12.0-16.0); Immature Granulocytes # (auto) 0.02 K/uL (0.01-0.20); Immature Granulocytes % (auto) 0.4 %; Lymphocytes # (auto) 0.31 K/uL (1.20-3.40); Mean Corpuscular Hemoglobin 31.9 pg (25.0-34.0); Mean Corpuscular Hgb Conc 32.1 g/dL (32.0-36.0); Mean Corpuscular Volume 99.3 fL (80.0-100.0); Monocytes # (auto) 0.57 K/uL (0.11-0.59); Neutrophils # (auto) 3.91 K/uL (1.40-6.50); Neutrophils % (auto) 75.2 %; Platelet Count 252 K/uL (130-400); RDW Coefficient of Variation 18.2 % (11.5-14.5); RDW Standard Deviation 65.9 fL (36.4-46.3); White Blood Count 5.19 K/ul (4.8-10.8)
[2024-03-23 06:50] LABS: Calcium 9.1 mg/dl (8.6-10.3); Creatinine Clr Calc Pharmacy 36.9 ml/min; Est GFR (African American) 43.9 ml/min; Est GFR (Non-African American) 37.9 ml/min; Potassium 4.1 mmol/L (3.5-5.1)
[2024-03-23 06:58] LABS: INR 3.9 (0.9-1.1); Prothrombin Time 37.2 Seconds (9.0-12.0)
[2024-03-23 07:53] VITALS: PULSE 76; RESP 18; TEMP 97.9
[2024-03-23] MEDS: oxyCODONE HCL IR 5 MG TAB (IMMEDIATE RELEASE) PO PRN (08:12)
--- NOTE | 2024-03-23 10:04 | Discharge Summary ---
Discharge Summary Date of Service March 23, 2024 Principal Dx & Hospital Course #1 = Principal Diagnosis (1) Congestive heart failure: Acute on chronic HFpEF. (prior baseline weight ~140lb) 168lb on admission and now down to 153lbs. Previously on high-dose torsemide with minimal effect then switched to intravenous Bumex with little effect. Lasix infusion started and was titrated up to 40 mg/h and she was also on metolazone 5 Mg daily. This did seem to help and now has been discontinued due to hypotension and worsening renal function Portable chest x-ray on March 16 revealed cardiomegaly with evidence of CHF. Fortunately, she is on room air although was briefly hypoxic on the evening of 03/19 which responded to IV Lasix For soft blood pressures, started midodrine 10 Mg p.o. 3 times daily which is helping Resumed diuretics in the form of Bumex 2 Mg p.o. twice daily and metolazone 2.5 Mg p.o. once daily 30 minutes before Bumex in the morning Continue Toprol XL -lowered dose to 12.5 Mg daily Her blood pressure and renal function also cannot tolerate Entresto, spironolactone, or SGLT2 Continue potassium chloride 40 mEq p.o. 2 times a day Follow BMP as an outpt The patient has gone back and forth between going on comfort measures/palliative measures versus continuing regular care but she is agreeable on a POLST form do not escalate care to include pressors, she is a DNR/DNI-appreciate palliative medicine consultation She is now moving lookback coordinator to [place] and wants to follow-up with her water and sewer systems superintendent there, continue current care (2) H/O mechanical aortic valve replacement: History of rheumatic heart disease, chronic HFpEF with restrictive cardiomyopathy. She has a [place] mitral valve in place and a mechanical mitral as well as aortic valve in place. She also underwent tricuspid valve repair and then had severe TR s/p redo mitral valve and tricuspid valve plus maze and PPM. Since then she has had refractory heart failure and is not a candidate for advanced therapies as per [facility]. She is not a candidate for heart transplant given her severe pulmonary hypertension and elevated PVR and cachexia. She continues to have anasarca and spite of max doses of IV diuretics in the past and here. Her Coumadin therapy was on hold for quite some time due to numerous bleeds including GI bleeds and retroperitoneal bleeds but has now been resumed at the patient's request Hemoglobin remains fairly stable to improved to 8.5 and is stable from previous She was placed back on her home dose of Coumadin 4mg alt with 2mg daily but now INR is elevated-Coumadin on hold 03/21 and 03/22,03/23 INR today down to 3.9 Can resume Coumadin 03/24 and follow INR in 2 days with results to be sent to her Biological Technician. Her sister will then mail her the home INR testing machine she owns She has a home INR testing apparatus at home-goal 2.5-3.5 Lowering Coumadin dose to 2 mg daily She follows at the [facility] (3) Acute blood loss anemia: Hemoglobin is in the 8-9 range and currently stable. Unfortunately she requires chronic systemic anticoagulation due to presence of mechanical heart valves On Warfarin, monitor for bleeding-none thus far Epistaxis-now resolved Saline nasal spray / phenylephrine PRN for epistaxis (4) Hyponatremia: Mild, secondary to heart failure/volume overload. Sodium is improved at 133 and stable Follow BMP as outpt (5) Chronic lower back pain: Neck and back pain-with severe torticollis and neck in flexed position due to severe muscle spasm perhaps from lengthy hospitalizations and positioning. Started fentanyl patch titrated up to 37 mcg and oxycodone prn breakthrough pain Needs PT as outpt Continue Robaxin 3 times daily Added on cervical soft collar which is helping as needed to hold head up (6) Acute kidney injury: Acute on chronic kidney disease stage III. Creatinine has stabilized around 1.7-2.0, but is actually improved now to 1.4 and BUN down to 89 Will have to accept worsening renal function and exchange for attempts to keep her comfortable with diuretics (7) Atrial flutter: Pt with history of afib/flutter. History of complete heart block with permanent pacemaker insertion in September 2018. Telemetry with paced rhythm here Continue Coumadin once INR lookback coordinator to therapeutic range, continue metoprolol Plan DNR/DNI status. Previously on comfort care however patient has insisted that she wants to get her medicines, including Coumadin and diuretic therapy and continue to get regular care with cardiology Patient has refused to go to snf facility or personal-prison. She is only interested in pursuing independent living-she has now found an apartment and plans on moving there on 03/23. Her brother has agreed to pay for an Uber to take her to her apartment today Stable for dsicharge to home Notes For Next Care Provider Follow up with PCP, Cardiology within 1-2 weeks Check PT/INR in 2 days Follow BMP, CBC with Cardiology Medication Changes From Visit See list below Admission HPI Per Admitting Provider Patient is a 63-year-old female with past medical history of A-fib status post multiple cardioversions, pacer in place, heart failure with preserved ejection fraction, rheumatic cardiomyopathy, aortic valve replacement with a mechanical valve, and bioprosthetic tricuspid valve who presents to the hospital for evaluation. She was at the [facility] for 2 months for congestive heart failure. She was discharged on 02/24 in the morning and was going to a nursing facility in [place]. Once patient arrived at the facility in [place] she left AMA and went to her son's house. Patient came in on EMS from son's house. Son stated to EMS that he does not feel comfortable with her living there and he is unable to take care of her. Patient does complain of lower bilateral lower extremity edema. She denies any chest pain, shortness of breath, or abdominal pain. She is complaining of lower back pain and sciatic pain and states that she was getting Dilaudid in the [facility] with good control. Patient does have [facility] portal and was able to show me the medications that were prescribed after her [facility] hospital stay. She was prescribed hydromorphone, levothyroxine, Zofran, Protonix, torsemide, potassium chloride, DuoNebs, and robaxin. There was no discharge summary or notes to review on the portal. Patient states that she was on the heart transplant list but she is not a candidate. She also states that the doctor at the [facility] told her she had " 3-5 days to live" and that he stopped her Coumadin " so that my valve will clot up and I will ". She also states that she has nowhere to go and that someone sold her house when she was gone. Discharge Exam Constitutional WD/WN, vitals as above Respiratory normal respiratory effort, lungs clear to auscultation Cardiovascular Rate/Rhythm: regular rate and regular rhythm Heart Sounds: + murmur Extremities: + edema (2+ pitting edema to the abdomen and bilateral lower extremities) Gastrointestinal (Abdomen) Inspection/Auscultation: + abdomen distended (but soft), normal bowel sounds and + visible herniation (umbilical but reducible) Percussion/Palpation: abdomen soft; abdomen nontender Psychiatric A+Ox3, euthymic affect Discharge Plan Discharge Items Patient Disposition: Home - Self-Care Reason For Visit: CONGESTIVE FAILURE, ANEMIA, HYPONATREMIA Discharge Diagnosis: Acute on chronic heart failure with preserved ejection fraction Hyponatremia Acute blood loss anemia Neck spasm and pain Condition on Discharge: Fair Activity: As commented below Bathing: No limitations Exercise/Sports: As tolerated Driving/Machine Use: No driving Non-emergency contact: Primary Care Provider and Biological Technician Call non-emergency contact if: you have any medication questions and your symptoms worsen Follow-up/Referrals: Fabby Whitmore [Primary Care Provider] - 03/29/24 1:05 pm (F/U with Sherrill WADE) Diet: Low Sodium (2gm) Fluids: 1500ml (6 cups) Addtl Attending Provider Instructions: You were admitted with generalized weakness and fluid overload from heart failure after recent prolonged stay at [facility]. You were given diuretics and had some fluid removed but your heart failure is refractory and end-stage. Your neck pain and spasm was treated with pain medication in the form of a fentanyl patch and oxycodone as needed for breakthrough pain, along with a muscle relaxer 3 times a day called methocarbamol. It has been highly recommended that you do a short-term rehab stay versus going to live in a personal prison with 24/ care however you have declined this on multiple occasions. If you desire, please schedule a follow-up appointment with your water and sewer systems superintendent at the [facility] once you return to that area. Because you are on Coumadin, you will need to have your PT/INR checked in 3 days . You can do this with your home INR machine. Call your Primary Care doctor if any of the following symptoms or problems start or get worse: * Shortness of breath or difficulty breathing * Wake up at night short of breath * Chest pain * Cough * Swelling of your hands, feet, or legs * More fatigued or tired with your normal activity * Palpitations - sudden fast heart beats WEIGHT * Weigh yourself every morning after using the bathroom. * Use the same scale. * Wear the same amount of clothing. * Write your weight down on a chart. * Call your Primary Care doctor if you gain more than 2-3 pounds in 1-2 days. MEDICATIONS * Use this discharge instruction sheet for medication instructions. * Take your medications at the time your doctor ordered. * Do not skip a dose of your medicines. * If you miss a dose of medicine, take it as soon as possible, but DO NOT DOUBLE A DOSE. * Read your medicine information when you get home. * Know all of the side effects of your medicine. If in doubt, ask your pharmacist * Call your Primary Care doctor's office if you have any side effects. * Be sure all of your doctors know what medicine and herbs you take (including cold, flu, and herbal medicine). Take the following with you to your follow-up doctor appointments: * Weight Chart * Medication List * List of questions Do not drink excessive alcohol, beer or wine. Pending Studies at Discharge: No Stand-Alone Forms: [facility] [employer] ([employer] Pain - Opioid Pain Management, Smoking Cessation Medications and DC Order Prescriptions: New methocarbamol 500 mg Tablet 500 mg PO TID Qty: 90 0RF midodrine 10 mg Tablet 10 mg PO TID@0800,1200,1700 Qty: 90 0RF warfarin 2 mg Tablet 2 mg PO DAILY Qty: 30 0RF fentanyl 37.5 mcg/hour patch 72 hour 1 patch transdermal Q72H Qty: 10 0RF bumetanide 2 mg tablet 2 mg PO BID Qty: 60 0RF metolazone 2.5 mg Tablet 2.5 mg PO DAILY@0830 Qty: 30 0RF Rx Instructions: Take 30 minutes prior to your bumetanide potassium chloride 20 mEq Tablet,Er Particles/Crystals 40 meq PO BID Qty: 120 0RF levothyroxine [Synthroid] 25 mcg Tablet 25 mcg PO DAILYBB Qty: 30 0RF pantoprazole 40 mg Tablet,Delayed Release (Dr/Ec) 40 mg PO BID Qty: 60 0RF Continued Thera M Plus (ferrous fumarat) 9 mg iron-400 mcg Tablet 1 tab PO QAM Hold Instructions: Resume on 01/25/23. Multi Vitamin 1 mg PO DAILY magnesium oxide 400 mg (241.3 mg magnesium) Tablet 400 mg PO BID Qty: 60 0RF oxycodone 5 mg tablet 5 mg PO Q6H PRN (Reason: breakthrough pain, severe) Qty: 30 0RF Changed metoprolol succinate 25 mg tablet extended release 24 hr 12.5 mg PO QAM Qty: 15 0RF ferrous sulfate 325 mg (65 mg iron) Tablet,Delayed Release (Dr/Ec) 325 mg PO DAILY Qty: 30 0RF Discontinued oxycodone 5 mg tablet 5 mg PO Q6 PRN (Reason: pain) Qty: 12 0RF warfarin [Jantoven] 1 mg tablet 2 mg PO 3XWK Hold Instructions: Resume on 01/25/23. Rx Instructions: DID INR 01/21/23-WAITING FOR INSTRUCTIONS ON DOSAGE. TAKE 2MG EVERY WEDNESDAY/WEDNESDAY/WEDNESDAY. warfarin [Jantoven] 1 mg tablet 4 mg PO 4XWK Hold Instructions: Resume on 01/25/23. Rx Instructions: DID INR 01/21/23-WAITING FOR INSTRUCTIONS ON DOSAGE. TAKE 4MG EVERY WEDNESDAY/WEDNESDAY/WEDNESDAY/WEDNESDAY. torsemide 100 mg tablet 100 mg PO BID Hold Instructions: Resume on 01/25/23. pantoprazole 20 mg tablet,delayed release (DR/EC) 20 mg PO DAILYBB Hold Instructions: Resume on 01/25/23. hydroxyzine HCl 10 mg tablet 10 mg PO Q8H PRN (Reason: Anxiety) Hold Instructions: Resume on 01/25/23. coenzyme Q10 [CoQ-10] 100 mg Capsule 100 mg PO DAILY Hold Instructions: Resume on 01/25/23. mirtazapine 7.5 mg tablet 22.5 mg PO HS Hold Instructions: Resume on 01/25/23. potassium chloride 10 mEq tablet extended release 50 meq PO BID Rx Instructions: 5 tabs am and 5 pm Discharge Orders: Discharge Order- CHF (Routine); Ordered 03/23/24 Ordered By: Arlet Mendosa Admission Data Admit Date/Time: 02/26/24 02:09 Attending Provider: Arlet Mendosa Admit Provider: Felice Schwartz Primary Care Provider: Fabby Whitmore Other Providers: [facility],; [place]Re[facility]; [facility]; Jack Jennings; [facility]; [facility] Stay Data Consultations 02/26/24 01:03 ED Decision to Admit Stat 02/26/24 09:19 HIM [Consult Health Information Management] Routine 02/26/24 16:21 Consult Gastroenterology Routine 02/27/24 09:24 Consult Palliative Care Routine Diagnostic Imagining Performed 02/26/24 13:01 CT Abd and Pelvis [CT abd pelvis wo con] Urgent 02/27/24 18:37 US venous duplex leg [US venous doppler LE BI] Urgent 03/05/24 15:41 US abdomen ltd ascites Routine Pending Results Patient Have Any Pending Studies at Discharge: No Discharge Instructions Given to Patient (Per Discharging Provider) You were admitted with generalized weakness and fluid overload from heart failure after recent prolonged stay at [facility]. You were given diuretics and had some fluid removed but your heart failure is refractory and end-stage. Your neck pain and spasm was treated with pain medication in the form of a fentanyl patch and oxycodone as needed for breakthrough pain, along with a muscle relaxer 3 times a day called methocarbamol. It has been highly recommended that you do a short-term rehab stay versus going to live in a personal prison with 01/03 care however you have declined this on multiple occasions. If you desire, please schedule a follow-up appointment with your water and sewer systems superintendent at the [facility] once you return to that area. Because you are on Coumadin, you will need to have your PT/INR checked in 3 days. You can do this with your home INR machine. Call your Primary Care doctor if any of the following symptoms or problems start or get worse: * Shortness of breath or difficulty breathing * Wake up at night short of breath * Chest pain * Cough * Swelling of your hands, feet, or legs * More fatigued or tired with your normal activity * Palpitations - sudden fast heart beats WEIGHT * Weigh yourself every morning after using the bathroom. * Use the same scale. * Wear the same amount of clothing. * Write your weight down on a chart. * Call your Primary Care doctor if you gain more than 2-3 pounds in 1-2 days. MEDICATIONS * Use this discharge instruction sheet for medication instructions. * Take your medications at the time your doctor ordered. * Do not skip a dose of your medicines. * If you miss a dose of medicine, take it as soon as possible, but DO NOT DOUBLE A DOSE. * Read your medicine information when you get home. * Know all of the side effects of your medicine. If in doubt, ask your pharmacist * Call your Primary Care doctor's office if you have any side effects. * Be sure all of your doctors know what medicine and herbs you take (including cold, flu, and herbal medicine). Take the following with you to your follow-up doctor appointments: * Weight Chart * Medication List * List of questions Do not drink excessive alcohol, beer or wine. Total Time Total Time Spent Total Time Spent (In Minutes): 45 min Coding Level of Care Code 59498 INP/OBS DISCH >30 MIN Diagnoses Congestive heart failure I50.9 H/O mechanical aortic valve replacement Z95.2 Acute blood loss anemia D62 Hyponatremia E87.1 Chronic lower back pain M54.50; G89.29 Acute kidney injury N17.9 Atrial flutter I48.92
[2024-03-23 10:19] VITALS: BP 105/63
== END 2024-03-23 12:07 | disposition home or self-care (01) | DRG 292 ==
LOC: ED 23:33 → EDINP 02-26 02:09 → SUATTDRO 02-26 02:09 → 4W 02-26 04:14 → 3W 02-29 12:48 → 2W 03-19 03:45